=== PATIENT | male | born 1975 | race Two or more races ===

== ENCOUNTER 2024-12-25 20:26 | Emergency (ER) | payer MEDICAID, SELFPAY ==
[2024-12-25 21:20] VITALS: BP 147/74; PULSE 104; RESP 20; TEMP 37.1; O2SAT 95
--- NOTE | 2024-12-25 21:36 | EKG_ITS ---
[facility] Test Date: 2024-12-25 Pat Name: LYN ROJAS Department: Room: - Gender: Male [employer]ing [employer]: : 1975 Requested By: Shashank Hanson Order Number: [id number] Reading MD: Shashank Hanson Measurements Intervals [place] Rate: 98 P: 30 ID: 152 QRS: 42 QRSD: 90 T: 24 QT: 331 QTc: 424 Interpretive Statements SINUS RHYTHM No previous ECG available for comparison /store/S0/[id number]
--- NOTE | 2024-12-25 21:36 | XR_ITS ---
Examination: PA lateral chest 2 views Technique: Upright PA lateral chest 2 views Exam date and time: December 25, 2024 at 2150 hrs. Indications: Chest pain today Findings: Significant right middle lobe right lower lobe pneumonia Normal heart size The osseous structures are intact Impression: Significant right middle lobe right lower lobe pneumonia
--- NOTE | 2024-12-25 21:36 | PD.EDRME ---
Rapid Medical Screening Exam [facility] Arrival date/time: 12/25/24 20:26 49M with no significant PMH presents to ED with 1 week of worsening cough and R-sided CP. Chief Complaint: Abdominal Pain Vital signs: Vital Signs Temperature 98.8 F 12/25/24 21:20 Pulse Rate 104 H 12/25/24 21:20 Respiratory Rate 20 12/25/24 21:20 Blood Pressure 147/74 H 12/25/24 21:20 Pulse Oximetry (%) 95 12/25/24 21:20 Oxygen Delivery Method Room Air 12/25/24 21:20
[2024-12-25 22:10] LABS: Basophils # (Auto) 0.1 Thou/mm3 (0.0-0.2); Basophils % (Auto) 1 % (0-2.5); Eosinophils # (Auto) 0.5 Thou/mm3 (0.0-0.5); Eosinophils % (Auto) 5 % (0-10); Hematocrit 35.6 % (41.0-53.0); Hemoglobin 12.1 g/dL (13.5-16.0); Immature Granulocytes % (Auto) 0 % (0-0); Immature Granulocytes Auto 0.03 Thou/mm3 (0.00-0.00); Lymphocytes # (Auto) 2.1 Thou/mm3 (1.0-4.8); Lymphocytes % (Auto) 22 % (10-50); Mean Corpuscular Hemoglobin 29.1 pg (25.0-35.0); Mean Corpuscular Volume 86 fL (80-100); Monocytes # (Auto) 1.1 Thou/mm3 (0.0-0.8); Monocytes % (Auto) 11 % (0-12); Neutrophils % (Auto) 61 % (37-80); Nucleated Red Blood Cell % 0 /100 WBC (0); Platelet Count 239 Thou/mm3 (140-440); RDW Standard Deviation 38.2 fL (35.1-43.9); Red Blood Count 4.16 Miln/mm3 (4.50-5.90); White Blood Count 9.7 Thou/mm3 (3.8-10.6)
[2024-12-25 22:31] LABS: Alanine Aminotransferase 11 U/L (10-49); Albumin, Serum 4.6 gm/dL (3.5-5.0); Albumin/Globulin Ratio 1.4 (1.2-2.2); Alkaline Phosphatase 252 U/L (46-116); Anion Gap 8 (7-16); Aspartate Amino Transferase 17 U/L (0-34); BUN/Creatinine Ratio 13 Ratio (12-20); Bilirubin,Total 0.4 mg/dL (0.3-1.2); Blood Urea Nitrogen 8 mg/dL (9-23); Calcium 9.8 mg/dL (8.3-10.6); Calcium (Corrected) 9.8 mg/dL (8.5-10.1); Carbon Dioxide 27.8 mMol/L (20.0-31.0); Chloride 100 mMol/L (98-107); Creatinine (Component) 0.6 mg/dL (0.6-1.3); Globulin 3.2 gm/dL (2.3-3.5); Glucose 115 mg/dL (74-106); Osmolality,Calculated 271 (275-295); Potassium 3.7 mMol/L (3.4-5.1); Sodium 136 mMol/L (136-145); Total Protein 7.8 gm/dL (5.7-8.2); Troponin I < 0.002 ng/mL (0.0-0.045); eGFR > 60 See Note
[2024-12-25 22:34] LABS: Procalcitonin 0.07 ng/ml (0.0-0.49)
[2024-12-25 22:39] LABS: Lactate (Lactic Acid) 0.6 mMol/L (0.4-2.0)
[2024-12-25 23:31] VITALS: BP 121/87; PULSE 88; RESP 20; TEMP 36.7; O2SAT 95
[2024-12-26 00:14] VITALS: BP 118/81; PULSE 84; RESP 17; TEMP 36.9; O2SAT 96
--- NOTE | 2024-12-26 00:19 | EDNOTE_ITS ---
ED Abdominal Pain RME/HPI General Chief Complaint: Flu Like Symptoms Stated complaint: RIGHT UPPER ABD PAIN X 3 DAYS Arrival date/time: 12/25/24 20:26 Source: patient Mode of arrival: ambulatory Limitations: no limitations RME / HPI RME / HPI narrative: 12/25/24 20:26 49M with no significant PMH presents to ED with 1 week of worsening cough and R- sided CP. DR SINGH MAIN ED EVALUATION: 49-year-old male with no significant past medical history presenting to the Emergency Department with one week of worsening right-sided chest pain and a non-productive cough. The patient describes the chest pain as localized to the right side, with a gradual onset and progressive worsening over the past week. The non-productive c ough has been without associated hemoptysis or sputum production. He denies fever, chills, night sweats, recent upper respiratory infections, or sick contacts. Related Data Previous Rx's ?Medication ?Instructions ?Recorded ibuprofen 600 mg tablet 600 mg PO Q6H PRN pain #30 t abs 12/26/24 levofloxacin 500 mg tablet 500 mg PO QDAY #5 tabs 12/06 12/29 Allergies Allergy/AdvReac Type Severity Reaction Status Date / Time Penicillins Allergy Intermediate RASH Verified 12/25/24 20:35 Review of Systems Review of Systems Systems Reviewed: All systems reviewed, normal except as documented Past Medical History Past Medical History CARDIAC: Negative Congestive Heart Failure RESPIRATORY: Negative Chronic Obstructive Pulmonary Disease (COPD) GENITOURINARY: Negative Renal Disease ENDOCRINE: Negative Diabetes Mellitus Type 1 or Diabetes Mellitus Type 2 Social History SMOKING STATUS: Never smoker ED Exam Narrative Physical exam: GENERAL APPEARANCE: alert and oriented x 4, well-developed, well-nourished, no acute distress VITALS: All vitals were reviewed and the pulse ox is 96% on room air, which is normal according to my interpretation. HEENT: Normocephalic, atraumatic; pupils equal, round, reactive to light; EOMI; mucous membranes pink, moist; oropharynx clear NECK: Supple LUNGS: CTABL; no wheezes, no rales, no rhonchi HEART: Regular rate, regular rhythm; normal S1, S2; no murmurs ABDOMEN: non distended; normal BS; soft, no tenderness, no guarding, no rebound; no masses, no organomegaly, no hernia BACK: no CVA tenderness EXTREMITIES: atraumatic; no edema NEUROLOGIC: awake; alert and oriented x4; cranial nerves II-XII grossly intact; no focal sensory or motor deficits PSYCHIATRIC: appropriate mood and affect SKIN: warm, dry, normal color; no rashes General Limitations: Present no limitations Course Course Course Narrative: CXR is ordered for determining etiology of chest pain. Quality Measures none Orders Category Date Time Status Bedside COVID-19 Antigen Test NOW Care 12/25/24 21:36 Completed Bedside Influenza A&B Antigen Test NOW Care 12/25/24 21:36 Completed EKG (ED ONLY) *Do not use* NOW Care 12/25/24 21:36 Completed EKG (ED Only) Stat Exams 12/25/24 21:36 Ordered US abdomen limited Stat Exams 12/26/24 01:26 Taken XR chest 2V Stat Exams 12/25/24 21:36 Completed Blood Culture (Lab) Stat Lab 12/25/24 22:17 Received CBC Stat Lab 12/25/24 21:56 Completed Comprehensive Metabolic Panel Stat Lab 12/25/24 21:56 Completed Lactate (Lactic Acid) Stat Lab 12/25/24 22:25 Completed Procalcitonin Stat Lab 12/25/24 21:56 Completed Troponin I Stat Lab 12/25/24 21:56 Completed Urinalysis, C/S if Indicated Stat Lab 12/26/24 03:36 Completed HYDROcodone*/APAP 5/325 [[place] 5/325] Med 12/26/24 00:13 Discontinued 1 tab PO X1 ONE Levofloxacin [Levaquin] Med 12/26/24 00:13 Discontinued 500 mg PO X1 ONE Vital Signs Vital signs: Vital Signs Temperature 98.8 F 12/25/24 21:20 Pulse Rate 104 H 12/25/24 21:20 Respiratory Rate 20 12/25/24 21:20 Blood Pressure 147/74 H 12/25/24 21:20 Pulse Oximetry (%) 95 12/25/24 21:20 Oxygen Delivery Method Room Air 12/25/24 21:20 Abdominal Pain MDM MDM Narrative MDM Narrative:: Scribe Attestation: I, Aurea Arita am scribing for and in the presence of Dr. Singh. Provider Notation: Although this document has been carefully reviewed, there may still be some phonetic and other typographical errors. These errors are purely grammatical due to imperfections in the software program and should not be construed in any way to compromise the substance of the patient's medical care during this visit. Patient data External records reviewed:: [facility] previous records Clinical information provided by:: patient Social determinants that could affect healthcare access:: none Patient has the following chronic illnesses:: na How is presenting disease/condition affected by chronic disease/condition?: no chronic disease Evaluation data The following diagnostics were reviewed and interpreted by me:: lab results and radiology exam(s) Lab and/or radiology exams considered but not ordered:: na Interpretation Summary: I personally reviewed the radiology data and agree with the radiologist's interpretation. Examination: PA lateral chest 2 views Technique: Upright PA lateral chest 2 views Exam date and time: December 25, 2024 at 2150 hrs. Indications: Chest pain today Findings: Significant right middle lobe right lower lobe pneumonia Normal heart size The osseous structures are intact Impression: Significant right middle lobe right lower lobe pneumonia Dictated By: Zachary Garcia MD Medications / Prescriptions Medications or Prescriptions considered but not ordered:: na Medication administrations:: Medication Administration History Discontinued Medications Hydrocodone Bitart/Acetaminophen (Hydrocodone/[place] 5/325 Tablet) 1 tab PO X1 ON E Stop: 12/26/24 00:14 Last Admin: 12/26/24 00:38 Dose: 1 tab Documented By: ABENA Levofloxacin (Levofloxacin 250 Mg Tablet) 500 mg PO X1 ONE Stop: 12/26/24 00:14 Last Admin: 12/26/24 00:38 Dose: 500 mg Documented By: ABENA as above, if any Consultations Consultation(s) initiated? (list below): No Diagnosis Differential diagnosis abdominal pain: abdominal pain, acute appendicitis, constipation, gastroenteritis, pancreatitis and small bowel obstruction Most likely diagnosis given after review of the tests above:: Pneumonia Admission Indicated Admission indicated?: not indicated Admission Request Was there a request for admission?: No Disposition Plan Disposition Plan: Discharge Discharge Attestation Discharge Attestation: The patient and all family members were given an opportunity to ask questions and understood the discharge instructions. Discharge instructions specifically effects, indications for sooner follow up or return to the emergency department, and the expected course of current diagnosis. Patient condition: Stable Discharge Plan Plan Patient Disposition: HOME (Self Care) Prescriptions/Referrals Prescriptions/Med Rec: New levofloxacin 500 mg tablet 500 mg PO QDAY Qty: 5 0RF ibuprofen 600 mg tablet 600 mg PO Q6H PRN (Reason: pain) Qty: 30 0RF Referrals: Garcia Rueda MD [Primary Care Provider] - In 1 week Problem List Clinical Impression: Pneumonia Patient/Caregiver Discharge Instructions Education Materials: ED Pneumonia (Adult) Print Language: Moz[place]ican Stand Alone Forms: [employer] Award Info., Work/School Release, Patient Portal Info Letter
[2024-12-26] MEDS: LEVOFLOXACIN 250 MG TABLET 500 MG PO (00:38)
[2024-12-26] MEDS: HYDROcodone/APAP 5/325 TABLET 1 TAB PO (00:38)
--- NOTE | 2024-12-26 01:26 | XR_ITS ---
Examination: Abdomen sonogram, Limited Date and time of exam: December 26, 2024 0342 hrs. Indications: Right upper abdominal pain beginning 2 days ago Technique: Real-time aviles scale transabdominal sonographic images of the upper abdomen obtained. Findings: Normal gallbladder Normal common bile duct 0.3 cm Pancreas obscured by bowel gas Liver 14.8 cm smooth contour fatty infiltration no focal liver lesions Normal hepatopedal portal venous flow. Patent IVC Impression: Normal gallbladder Fatty liver
[2024-12-26 03:42] LABS: Collection Type, Urine Clean Catch; Squamous Epithelial Cell,Urine 0 /hpf (0-5)
[2024-12-26 04:05] LABS: Bilirubin,Urine Negative (Negative); Blood,Urine Negative (Negative); Clarity,Urine Clear (Clear/Hazy); Color,Urine Light-Blue (Lt Yel-Yel); Culture Indicated,Urine Not Indicated; Glucose, Urine Negative (Negative); Ketones,Urine Negative (Negative); Leukocyte Esterase,Urine Negative (Negative); Nitrite,Urine Negative (Negative); Protein,Urine Negative (Neg - Trace); RBC,Urine 1 /hpf (0-3); Urobilinogen,Urine Negative mg/dL (0.0-1.0); WBC,Urine 1 /hpf (0-5)
[2024-12-26 04:26] VITALS: BP 112/86; PULSE 62; RESP 18; TEMP 36.7; O2SAT 98
--- NOTE | 2024-12-26 05:02 | PRELIM_ITS ---
Ultrasound Abdomen. December 26, 2024 at 0342 hours Clinical history: Right upper quadrant pain. Technique: Grayscale and color flow images of the abdomen are provided. Hepatic and portal veins were also imaged with color flow images. Comparison: No prior study is available for comparison. Findings: There is fatty liver. There is no space occupying hepatic mass or intrahepatic biliary dilatation. No gallstones or sludge noted within the gallbladder. Gallbladder wall thickness is normal measuring 2 mm. There is no pericholecystic fluid. No sonographic Oden's sign is elicited. Pancreas is not well visualized due to overlying bowel gas. Common bile duct is normal in caliber measuring 3 mm. There is hepatopedal flow within the portal vein. There is conrado-hepatic ascites. Impression: 1. Fatty liver. Perihepatic ascites noted. 2. No gallbladder disease. Report Electronically Signed By: Reilly Avendano 12/26/2024 5:01:35 AM [EST]
== END 2024-12-26 04:27 | disposition home or self-care (01) ==
PROVIDERS: Physician Assistant; Emergency Provider Emergency Medicine; PCP Family Medicine
DX: J18.9 Pneumonia, unspecified organism (principal)
CPT/HCPCS: 36415; 71046; 76705; 80053; 81001; 83605; 84145; 84484; 85025; 87040; 87400; 87811; 93005; 99284; A9270

== ENCOUNTER 2025-02-02 15:56 | Inpatient (IN) | payer MEDICAID, SELFPAY ==
[2025-02-02 16:13] VITALS: BP 136/93; PULSE 97; RESP 18; TEMP 36.8; O2SAT 99; BMI 23.0
--- NOTE | 2025-02-02 16:38 | XR_ITS ---
Examination: PA lateral chest 2 views TECHNIQUE: Upright PA lateral chest 2 views Exam date and time: February 02, 2025 1657 hours Comparison December 25, 2024 INDICATIONS: Coughing and fever today. FINDINGS: Pneumonia in the right midlung and left midlung Mild prominence left ventricle Large right pleural effusion The osseous structures are intact IMPRESSION: Bilateral pneumonia with large right pleural effusion
--- NOTE | 2025-02-02 16:39 | PD.EDRME ---
Rapid Medical Screening Exam [facility] Arrival date/time: 02/02/25 15:56 49-year-old male with no known medical history presents to the emergency room with a chief complaint of pain with inspiration, shortness of breath x 2 days I have greeted and performed a focused initial assessment of this patient. A comprehensive ED assessment and evaluation of the patient, analysis of all test results, and completion of the medical decision making process will be conducted by additional ED providers. Chief Complaint: Back Pain/Injury Time Seen by Provider: 02/02/25 16:03 Vital signs: Vital Signs Temperature 98.3 F 02/02/25 16:13 Pulse Rate 97 02/02/25 16:13 Respiratory Rate 18 02/02/25 16:13 Blood Pressure 136/93 H 02/02/25 16:13 Pulse Oximetry (%) 99 02/02/25 16:13 Oxygen Delivery Method Room Air 02/02/25 16:13 Vital signs reviewed by provider: Yes
[2025-02-02] MEDS: KETOROLAC INJ 60 MG/2 ML VIAL 30 MG IM (16:59)
[2025-02-02 18:05] VITALS: BP 157/100; PULSE 83; RESP 24; TEMP 36.8; O2SAT 98
--- NOTE | 2025-02-02 18:05 | EKG_ITS ---
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
--- NOTE | 2025-02-02 18:09 | XR_ITS ---
Examination: CT chest with intravenous contrast 2-D sagittal and coronal reconstructions Exam date and time: February 02, 2025 1915 hours INDICATIONS: Onset of SOB today, chest film today large right pleural effusion CTDI:vol (mGy) 11 DLP: (mGycm) 386 Technique: Multiple axial sections of the thorax have been obtained. Sections have been obtained, 3 mm slice thickness. Mediastinal and lung density settings have been obtained. Intravenous contrast administered, 60 cc Isovue 370. 2-D sagittal, coronal images obtained. Low dose protocols were performed. One or more of the following dose reduction techniques were used; automated exposure control, adjustment of the mA and/or KV according to patient size, use of iterative reconstruction technique. Findings: Large right pleural effusion Pneumonia in the visualized right lung Small likely reactive tracheobronchial mediastinal lymph nodes Significant right lung atelectasis 4 mm pulmonary nodule right upper lobe image 62, 5 mm pulmonary nodule left lower lobe image 194 No thoracic aortic aneurysmal dilatation No pulmonary artery filling defects No visualized liver and splenic lesions Contracted gallbladder No pancreatic or adrenal mass Widespread osteoblastic metastatic disease IMPRESSION: Large right pleural effusion Right lung pneumonia with significant right lung atelectasis Noncalcified likely metastatic pulmonary nodules Widespread osteoblastic metastatic disease Consider CT scan abdomen and pelvis postcontrast follow-up for staging
--- NOTE | 2025-02-02 18:10 | PD.EDADULT ---
ED General RME/HPI General Chief complaint: Back Pain/Injury Stated complaint: R) BACK PAIN Time Seen by Provider: 02/02/25 16:03 Arrival date/time: 02/02/25 15:56 CC: Shortness of breath HPI patient states started today. Patient denies any slow worsening of shortness of breath over the past several days. 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 Patient's medical records show that he had pneumonia in December of this year. Which had resolved. Patient denies fever chills difficulty breathing headache nausea vomiting diarrhea or chest pain. No other complaints. RME / HPI RME / HPI narrative: 02/02/25 15:56 49-year-old male with no known medical history presents to the emergency room with a chief complaint of pain with inspiration, shortness of breath x 2 days I have greeted and performed a focused initial assessment of this patient. A comprehensive ED assessment and evaluation of the patient, analysis of all test results, and completion of the medical decision making process will be conducted by additional ED providers. Related Data Previous Rx's ?Medication ?Instructions ?Recorded ibuprofen 600 mg tablet 600 mg PO Q6H PRN pain #30 tabs 12/26/24 levofloxacin 500 mg tablet 500 mg PO QDAY #5 tabs 12/26/24 Allergies Allergy/AdvReac Type Severity Reaction Status Date / Time Penicillins Allergy Intermediate RASH Verified 02/02/25 16:04 Past Medical History Past Medical History CARDIAC: Negative Congestive Heart Failure RESPIRATORY: Negative Chronic Obstructive Pulmonary Disease (COPD) GENITOURINARY: Negative Renal Disease ENDOCRINE: Negative Diabetes Mellitus Type 1 or Diabetes Mellitus Type 2 Social History SMOKING STATUS: Never smoker ED Exam Narrative Physical exam: [General: Not in any acute distress Head normocephalic HEENT: Within acceptable limits Neck is supple nontender Chest equal chest rise nontender to palpation Respiratory: Absent breath sounds right side. Left side clear to auscultation in the upper lobes CV: Rate rhythm is regular no murmurs rubs or clicks Abdomen is soft nontender, positive bowel sounds all 4 quadrants Back: No CVA tenderness no spinous process tenderness from cervical spine thoracic and lumbar spine Skin: Intact no petechiae rash induration ulceration or crepitus Extremities: Moving all extremity against resistance cap refill less than 2 seconds neurosensory intact Neuro: Awake alert oriented x3 Glascow coma 15 no focal deficits] Course Quality Measures none Orders Category Date Time Status Patient Condition Routine Admission 02/02/25 20:[address] in Observation Status Routine Admission 02/02/25 20:38 Active Activity as Tolerated Routine Care 02/02/25 20:37 Ordered Bedside COVID-19 Antigen Test NOW Care 02/02/25 16:38 Active Bedside Influenza A&B Antigen Test NOW Care 02/02/25 16:[address] Screening NOW Care 02/02/25 18:[address] Screening NOW Care 02/02/25 20:33 Active EKG (ED ONLY) *Do not use* NOW Care 02/02/25 18:05 Completed Notify provider NEEDED Care 02/02/25 20:37 Active Saline [Insert IV] NOW Care 02/02/25 17:57 Active Sequential Compression Device QSHIFT Care 02/02/25 20:[address] abdomen pelvis w con Stat Exams 02/02/25 20:[address] chest w con Stat Exams 02/02/25 18:[address] guided thoracentesis Stat Exams 02/02/25 20:38 Ordered EKG (ED Only) Stat Exams 02/02/25 18:05 Draft XR chest 2V Stat Exams 02/02/25 16:38 Completed CBC AM DRAW Lab 02/03/25 05:00 Ordered CBC AM DRAW Lab 02/04/25 05:00 Ordered CBC AM DRAW Lab 02/05/25 05:00 Ordered CBC Stat Lab 02/02/25 18:21 Completed CMP [Comprehensive Metabolic Panel] Stat Lab 02/02/25 18:21 Completed Comprehensive Metabolic Panel AM DRAW Lab 02/03/25 05:00 Ordered Comprehensive Metabolic Panel AM DRAW Lab 02/04/25 05:00 Ordered Comprehensive Metabolic Panel AM DRAW Lab 02/05/25 05:00 Ordered Magnesium AM DRAW Lab 02/03/25 05:00 Ordered PT [Prothrombin Time with INR] Stat Lab 02/02/25 18:21 Completed PTT [Partial Thromboplastin Time] Stat Lab 02/02/25 18:21 Completed Partial Thromboplastin Time AM DRAW Lab 02/03/25 05:00 Ordered Phosphorous AM DRAW Lab 02/03/25 05:00 Ordered Prothrombin Time with INR AM DRAW Lab 02/03/25 05:00 Ordered Acetaminophen Tab [Tylenol Tab] Med 02/02/25 20:38 Active 650 mg PO Q6H PRN Albuterol/Ipratr Rt Stacia [Duoneb Rt Stacia] Med 02/02/25 20:38 Active 3 ml INH Q2HR PRN Ketorolac Inj [Toradol Inj] Med 02/02/25 16:38 Discontinued 30 mg IM X1 ONE LORazepam [Ativan] Med 02/02/25 20:44 Ordered 0.5 mg PO Q4HR PRN LORazepam [Ativan] Med 02/02/25 20:44 Ordered 1 mg PO Q4HR PRN LORazepam [Ativan] Med 02/02/25 20:44 Ordered 2 mg PO Q4HR PRN Ondansetron Inj [Zofran Inj] Med 02/02/25 20:38 Active 4 mg IV Q6H PRN oxyCODONE/APAP 5/325 [Percocet 5/325] Med 02/02/25 20:38 Active 1 tab PO Q6H PRN Code Status Routine Oth 02/02/25 20:36 Ordered Oxygen Delivery PRN RT 02/02/25 20:36 Active Vital Signs Vital signs: Vital Signs Temperature 98.3 F 02/02/25 16:13 Pulse Rate 97 02/02/25 16:13 Respiratory Rate 18 02/02/25 16:13 Blood Pressure 136/93 H 02/02/25 16:13 Pulse Oximetry (%) 99 02/02/25 16:13 Oxygen Delivery Method Room Air 02/02/25 16:13 [facility] Patient data External records reviewed:: [facility] previous records Clinical information provided by:: patient Social determinants that could affect healthcare access:: none Patient has the following chronic illnesses:: None How is presenting disease/condition affected by chronic disease/condition?: uneffected by Evaluation data The following diagnostics were reviewed and interpreted by me:: lab results, radiology exam(s) and EKG tracing(s) Lab and/or radiology exams considered but not ordered:: EKG performed at 1811 shows ventricular rate of 70 AK interval 116 QRS of 90 QTc 390 is normal sinus rhythm. CBC shows no acute leukocytosis anemia thrombocytopenia Coags within acceptable limits CMP shows the patient has a BUN of 8 no other acute abnormalities require immediate intervention alk phos is at 376. Chest x-ray showed large pleural effusion CT of the chest with IV contrast shows the patient has multiple metastatic osseous lesions mediastinal lesions, large pleural effusion pneumonia. Interpretation Summary: Patient's case discussed with Dr. Márquez, resident for Dr. Sergio Presley who agrees to accept the patient for admission Medications Medications considered but not ordered:: None Medication administrations:: Medication Administration History Acetaminophen (Acetaminophen 325 Mg Tablet) 650 mg PO Q6H PRN PRN Reason: Fever >100.3 or pain 1-3 Stop: 03/04/25 20:37 Albuterol/Ipratropium (Albuterol/Ipratropium (Duoneb) Rt Stacia 3 Ml Nebu) 3 ml INH Q2HR PRN PRN Reason: SHORTNESS OF BREATH OR WHEEZE Stop: 03/04/25 20:37 Lorazepam (Lorazepam 0.5 Mg Tablet) 0.5 mg PO Q4HR PRN PRN Reason: CIWA Score 2-6 Stop: 02/07/25 20:43 Lorazepam (Lorazepam 0.5 Mg Tablet) 1 mg PO Q4HR PRN PRN Reason: CIWA SCORE 7-11 Stop: 02/07/25 20:43 Lorazepam (Lorazepam 0.5 Mg Tablet) 2 mg PO Q4HR PRN PRN Reason: CIWA SCORE 12-15 Stop: 02/07/25 20:43 Ondansetron HCl (Ondansetron Inj 2 Mg/Ml Inj 2 Ml) 4 mg IV Q6H PRN; Protocol PRN Reason: NAUSEA OR VOMITING Stop: 03/04/25 20:37 Oxycodone/Acetaminophen (Oxycodone/Apap 5/325 Tablet) 1 tab PO Q6H PRN PRN Reason: Pain Scale 4-10 (Moderate Stop: 02/07/25 20:37 Discontinued Medications Ketorolac Tromethamine (Ketorolac Inj 60 Mg/2 Ml Vial) 30 mg IM X1 ONE Stop: 02/02/25 16:39 Last Admin: 02/02/25 16:59 Dose: 30 mg Documented By: None Consultations Consultation(s) initiated? (list below): No Diagnosis Differential Diagnosis ED Complaint MDM: Pneumonia metastatic disease pleural effusion Most likely diagnosis given after review of the tests above:: Pneumonia metastatic disease pleural effusion Admission Indicated Admission indicated?: indicated Explain why admission is indicated or not indicated:: Further medical management Admission Request Was there a request for admission?: No Disposition Plan Disposition Plan: Discharge Discharge Attestation Discharge Attestation: The patient and all family members were given an opportunity to ask questions and understood the discharge instructions. Discharge instructions specifically effects, indications for sooner follow up or return to the emergency department, and the expected course of current diagnosis. Patient condition: Stable Medical Decision Making Differential Diagnosis Differential Diagnosis: Pneumonia metastatic disease pleural effusion Lab Data 02/02/25 18:21 02/02/25 18:21 Labs: Lab Results 02/02/25 Range/Units 18:21 WBC 8.8 (3.8-10.6) Thou/mm3 RBC 4.80 (4.50-5.90) Miln/mm3 Hgb 13.6 (13.5-16.0) g/dL Hct 40.8 L (41.0-53.0) % MCV 85 (80-100) fL MCH 28.3 (25.0-35.0) pg MCHC 33.3 (31.0-37.0) g/dl RDW Std Deviation 39.6 (35.1-43.9) fL Plt Count 334 D (140-440) Thou/mm3 Neut % (Auto) 66 (37-80) % Lymph % (Auto) 23 (10-50) % Barbour % (Auto) 8 (0-12) % Eos % (Auto) 2 (0-10) % Baso % (Auto) 1 (0-2.5) % Neut # (Auto) 5.8 (1.8-7.7) Thou/mm3 Lymph # (Auto) 2.0 (1.0-4.8) Thou/mm3 Barbour # (Auto) 0.7 (0.0-0.8) Thou/mm3 Eos # (Auto) 0.2 (0.0-0.5) Thou/mm3 Baso # (Auto) 0.1 (0.0-0.2) Thou/mm3 Immature Gran # (Auto) 0.04 H (0.00-0.00) Thou/mm3 Absolute Nucleated RBC 0.00 (0.00-0.00) Thou/mm3 Immature Gran % 1 H (0-0) % Nucleated RBC % 0 (0) /100 WBC PT 11.6 (9.0-12.2) Seconds INR 1.1 (0.9-1.3) APTT 26.5 (22.0-36.0) Seconds Sodium 137 (136-145) mMol/L Potassium 4.6 (3.4-5.1) mMol/L Chloride 102 (98-107) mMol/L Carbon Dioxide 27.7 (20.0-31.0) mMol/L Anion Gap 7 (7-16) BUN 8 L (9-23) mg/dL Creatinine 0.7 (0.6-1.3) mg/dL Estim Creat Clear Calc 126.3 (>60) mL/min eGFR > 60 (60 - ) See Note BUN/Creatinine Ratio 11 L (12-20) Ratio Glucose 116 H (74-106) mg/dL Calculated Osmolality 273 L (275-295) Calcium 9.9 (8.3-10.6) mg/dL Corrected Calcium 9.9 (8.5-10.1) mg/dL Total Bilirubin 0.4 (0.3-1.2) mg/dL AST 27 (0-34) U/L ALT 17 (10-49) U/L Alkaline Phosphatase 376 H (46-116) U/L Total Protein 7.8 (5.7-8.2) gm/dL Albumin 4.5 (3.5-5.0) gm/dL Globulin 3.3 (2.3-3.5) gm/dL Albumin/Globulin Ratio 1.4 (1.2-2.2) Discharge Plan Plan Patient Disposition: Other Care w/in Hosp ([facility]) Patient condition on transfer: Stable Prescriptions/Referrals Prescriptions/Med Rec: No Action levofloxacin 500 mg tablet 500 mg PO QDAY Qty: 5 0RF ibuprofen 600 mg tablet 600 mg PO Q6H PRN (Reason: pain) Qty: 30 0RF Referrals: No Primary/Family,Physician [Primary Care Provider] - In 1 week Problem List Clinical Impression: Shortness of breath, Pleural effusion, Pneumonia, Osteolytic lesion Patient/Caregiver Discharge Instructions Print Language: Maori Stand Alone Forms: Jerica Award Info., Patient Portal Info Letter 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
[2025-02-02 18:36] LABS: Basophils # (Auto) 0.1 Thou/mm3 (0.0-0.2); Basophils % (Auto) 1 % (0-2.5); Eosinophils # (Auto) 0.2 Thou/mm3 (0.0-0.5); Eosinophils % (Auto) 2 % (0-10); Hematocrit 40.8 % (41.0-53.0); Hemoglobin 13.6 g/dL (13.5-16.0); Immature Granulocytes % (Auto) 1 % (0-0); Immature Granulocytes Auto 0.04 Thou/mm3 (0.00-0.00); Lymphocytes % (Auto) 23 % (10-50); Mean Corpuscular HGB Conc 33.3 g/dl (31.0-37.0); Mean Corpuscular Hemoglobin 28.3 pg (25.0-35.0); Mean Corpuscular Volume 85 fL (80-100); Monocytes # (Auto) 0.7 Thou/mm3 (0.0-0.8); Monocytes % (Auto) 8 % (0-12); Neutrophils # (Auto) 5.8 Thou/mm3 (1.8-7.7); Neutrophils % (Auto) 66 % (37-80); Nucleated Red Blood Cell % 0 /100 WBC (0); Platelet Count 334 Thou/mm3 (140-440); RDW Standard Deviation 39.6 fL (35.1-43.9); White Blood Count 8.8 Thou/mm3 (3.8-10.6)
[2025-02-02 18:48] LABS: Alanine Aminotransferase 17 U/L (10-49); Albumin, Serum 4.5 gm/dL (3.5-5.0); Albumin/Globulin Ratio 1.4 (1.2-2.2); Alkaline Phosphatase 376 U/L (46-116); Anion Gap 7 (7-16); Aspartate Amino Transferase 27 U/L (0-34); BUN/Creatinine Ratio 11 Ratio (12-20); Bilirubin,Total 0.4 mg/dL (0.3-1.2); Blood Urea Nitrogen 8 mg/dL (9-23); Calcium 9.9 mg/dL (8.3-10.6); Calcium (Corrected) 9.9 mg/dL (8.5-10.1); Carbon Dioxide 27.7 mMol/L (20.0-31.0); Chloride 102 mMol/L (98-107); Creatinine (Component) 0.7 mg/dL (0.6-1.3); Estimated Creatinine Clearance 126.3 mL/min (>60); Globulin 3.3 gm/dL (2.3-3.5); Glucose 116 mg/dL (74-106); INR 1.1 (0.9-1.3); Osmolality,Calculated 273 (275-295); Partial Thromboplastin Time 26.5 Seconds (22.0-36.0); Potassium 4.6 mMol/L (3.4-5.1); Prothrombin Time 11.6 Seconds (9.0-12.2); Sodium 137 mMol/L (136-145); Total Protein 7.8 gm/dL (5.7-8.2); eGFR > 60 See Note
--- NOTE | 2025-02-02 20:33 | XR_ITS ---
Examination: CT abdomen with intravenous contrast CT pelvis with intravenous contrast 2-D coronal reconstructions 2-D sagittal reconstructions Date and time of exam:February 02, 2025 2046 hours INDICATIONS: Shortness of breath today, large right pleural effusion on CT chest study with widespread osteoblastic metastatic disease on CT chest February 02, 2025 1915 hours. CTDI: vol (mGy) 6.91 DLP: (mGycm) 399 Technique: Multiple axial sections of the abdomen and pelvis have been obtained. 64 slice high-resolution scanner used. 3 mm axial sections have been obtained, post intravenous injection of 60 cc Isovue 370 2-D sagittal, coronal reconstructions obtained. Low dose protocols were performed. One or more of the following dose reduction techniques were used; automated exposure control, adjustment of the mA and/or KV according to patient size, use of iterative reconstruction technique. Findings: No focal liver or splenic lesion No pancreatic or adrenal mass Abdominal aorta is not enlarged No hydronephrosis Normal appendix No abdominal lymphadenopathy, no pelvic lymphadenopathy Seminal vesicles are not enlarged Transverse prostate dimension 4.1 cm Widespread osteoblastic metastatic disease, involving all lumbar vertebral bodies, bones of the pelvis, hips IMPRESSION: Widespread osteoblastic metastatic disease Recommend transrectal prostate sonography follow-up
--- NOTE | 2025-02-02 20:53 | ESHP_ITS ---
Documentation for date of: 02/02/25 HPI History of Present Illness Chief complaint: shortness of breath, chest pain History of present illness: The patient is a 49-year-old male with no previous medical history who came to the ED due to shortness of breath that started a day ago, denies fever, chills, cough, nausea, vomiting, weight loss. He also denies dysuria, bloody, dark stools. 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 In December 2024 he came to the ED with cough and right-sided chest pain, was found to have right-sided pneumonia, was discharged on oral levofloxacin. In the ED his blood pressure 136/93, heart rate 97, he is afebrile, saturating well on room air. Labs showed leukocytosis of 8.8, hemoglobin 13.6, platelets 334, INR 1.1, sodium 137, potassium 4.6, creatinine 0.7, glucose 116, alkaline phosphatase 376. Chest x- ray showed bilateral pneumonia with large right pleural effusion, CT chest with contrast reviewed in addition to large right pleural effusion and right lung pneumonia noncalcified most likely metastatic pulmonary nodules, widespread osteoblastic metastatic disease. EKG showed sinus rhythm. CT abdomen chest with contrast was ordered. Explained to the patient the findings on the CT chest, possible the differential diagnosis of cancer and necessary workup that's required, patient showed understanding. Patient will be admitted for right pneumonia and right pleural effusion, most likely paracancerous work up and treatment including thoracocentesis. Social history: denies history of smoking, reports drinking 5-6 beers every day, last drink was yesterday (1 beer). 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 Medications: denies PMH: denies Review of Systems Review of Systems Narrative Review of Systems: General: Denies weight loss, fever and chills. HEENT: Denies changes in vision and hearing. Resp: Denies SOB, cough and wheezing. Reports right sided mild chest pain. CVS: Denies palpitations. Reports right sided mild chest pain. GI: Denies abdominal pain, nausea, vomiting and diarrhea. : Denies dysuria and urinary frequency. MSK: Denies myalgia and joint pain. Denies rash and pruritus. Neuro: Denies headache and syncope. Psych: Denies recent changes in mood. Denies anxiety and depression. Past Medical History Past Medical History CARDIAC: Negative Congestive Heart Failure RESPIRATORY: Negative Chronic Obstructive Pulmonary Disease (COPD) GENITOURINARY: Negative Renal Disease ENDOCRINE: Negative Diabetes Mellitus Type 1 or Diabetes Mellitus Type 2 Social History SMOKING STATUS: Never smoker Exam Vital Signs Temp Pulse Resp BP Pulse Ox O2 Del Method 98.3 F 83 24 H 157/100 H 98 Room Air 02/02/25 18:05 02/02/25 18:05 02/02/25 18:05 02/02/25 18:05 02/02/25 18:05 02/02/25 18:05 Narrative Exam Physical Exam General: Awake and in no acute distress. Conversational and non-toxic appearing. HEENT: Normocephalic, atraumatic, mucous membranes moist. Heart: Regular rate and rhythm, no murmurs. Lungs: Decreased breathing sounds on in the lower part of right lung. Abdomen: Soft, nondistended, nontender, positive bowel sounds. ?No guarding or rebound tenderness. Neurologic: Alert and oriented x3, no gross neurological deficit, and patient able to move all 4 extremities. Extremities: No edema. Skin: No rash or ecchymoses. Results: Labs 02/03/25 05:23 02/03/25 05:23 Labs: Short CBC 02/02/25 Range/Units 18:21 WBC 8.8 (3.8-10.6) Thou/mm3 Hgb 13.6 (13.5-16.0) g/dL Hct 40.8 L (41.0-53.0) % Plt Count 334 D (140-440) Thou/mm3 BMP 02/02/25 18:21 Sodium 137 Potassium 4.6 Chloride 102 Carbon Dioxide 27.7 BUN 8 L Creatinine 0.7 Glucose 116 H Calcium 9.9 Liver Function 02/02/25 Range/Units 18:21 Total Bilirubin 0.4 (0.3-1.2) mg/dL AST 27 (0-34) U/L ALT 17 (10-49) U/L Alkaline Phosphatase 376 H (46-116) U/L Albumin 4.5 (3.5-5.0) gm/dL Quality Measures Quality Measures VTE prophylaxis Medications Home Medications and Allergies Allergies Allergy/AdvReac Type Severity Reaction Status Date / Time Penicillins Allergy Intermediate RASH Verified 02/02/25 16:04 Visit Medications Acetaminophen (Acetaminophen 325 Mg Tablet) 650 mg PO Q6H PRN PRN Reason: Fever >100.3 or pain 1-3 Stop: 03/04/25 20:37 Albuterol/Ipratropium (Albuterol/Ipratropium (Duoneb) Rt Stacia 3 Ml Nebu) 3 ml INH Q2HR PRN PRN Reason: SHORTNESS OF BREATH OR WHEEZE Stop: 03/04/25 20:37 Lorazepam (Lorazepam 0.5 Mg Tablet) 0.5 mg PO Q4HR PRN PRN Reason: CIWA Score 2-6 Stop: 02/07/25 20:43 Lorazepam (Lorazepam 0.5 Mg Tablet) 1 mg PO Q4HR PRN PRN Reason: CIWA SCORE 7-11 Stop: 02/07/25 20:43 Lorazepam (Lorazepam 0.5 Mg Tablet) 2 mg PO Q4HR PRN PRN Reason: CIWA SCORE 12-15 Stop: 02/07/25 20:43 Ondansetron HCl (Ondansetron Inj 2 Mg/Ml Inj 2 Ml) 4 mg IV Q6H PRN; Protocol PRN Reason: NAUSEA OR VOMITING Stop: 03/04/25 20:37 Oxycodone/Acetaminophen (Oxycodone/Apap 5/325 Tablet) 1 tab PO Q6H PRN PRN Reason: Pain Scale 4-10 (Moderate Stop: 02/07/25 20:37 Discontinued Medications Ketorolac Tromethamine (Ketorolac Inj 60 Mg/2 Ml Vial) 30 mg IM X1 ONE Stop: 02/02/25 16:39 Last Admin: 02/02/25 16:59 Dose: 30 mg Assessment & Plan Plan The patient is a 49-year-old male with no previous medical history who came to the ED due to shortness of breath that started a day ago was found to have right sided pneumonia and pleural effusion, osteoblastic lesions and was admitted for further work up and management. #Right sided large pleural effusion #Metastatic cancer Patient reports mild chest pain. Patient has a history of right sided pneumonia in December 2024. Chest x-ray showed bilateral pneumonia with large right pleural effusion, CT chest with contrast reviewed in addition to large right pleural effusion and right lung pneumonia noncalcified most likely metastatic pulmonary nodules, widespread osteoblastic metastatic disease. Patient denies unexpected weight loss, denies smoking, dysuria, is afebrile, saturates well on room air, denies cough. Plan: - will hold antibiotics for now since the nature of pleural effusion and pneumonia most like likely malignant - CT abd/chest with contrast showed multiple osteolytic lesions in bodies of - pain control as needed - IR guided thoracocentesis - Day team to fill up cytology form - Pleural fluid cytology, amylase, LDH, glucose ordered - Serum LDH #Osteoblastic bone lesions Patient reports mild chest/back pain. Plan: - pain control as needed #History of alcohol use At the momen of examination CIWA score is 0. Plan: - CIWA protocol Health maintenance: FEN: regular DVT prophylaxis: SCDs GI prophylaxis: none Dispo: med surg observation CODE STATUS: Full code Plan of care discussed with attending Dr. Aburto, PGY-[address] Márquez. Sherry Barnhart MD, PGY 1. Attending Provider Attestation/Addendum I attest that I was physically present for the evaluation, physical examination, lab and imaging review of the patient with the residents. I discussed the case with the residents and agree with the findings and plans of care as documented above. Patient is a 49 years old male without known past medical history who presented to the ED with complaint of shortness of breath and back pain that started yesterday. 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 Patient had pneumonia last month for which he received a course of antibiotics. After the antibiotics, he felt better but started having back pain and shortness of breath since yesterday. In the ED his vitals were within normal limits. Lab results were also nonconcerning except for alkaline phosphatase of 376. Chest x-ray was obtained which showed bibasilar pneumonia with large right pleural effusion. CT chest was obtained, which showed large right pleural effusion and right lung pneumonia along with most likely metastatic pulmonary nodules, widespread osteoblastic metastatic disease. We will admit the patient on observation, we will obtain CT abdomen/pelvis to further evaluate for possible source of tumor. We will also obtain IR guided thoracentesis tomorrow. Analgesics as needed, pleural fluid studies, serum LDH, PSA level are ordered. Patient also has history of alcohol abuse, drinks 5-6 beers every day. Currently does not have any symptoms of withdrawal, we will start him on CIWA protocol and monitor closely for symptoms of withdrawal. Patient and his family at bedside explained in detail about CT scan finding, need of further evaluation, family verbalized understanding and are in agreement with treatment plan. Travis Aburto MD
[2025-02-02 21:06] VITALS: BP 161/99; PULSE 72; PULSE 73; RESP 18; O2SAT 95
[2025-02-02] MEDS: oxyCODONE/APAP 5/325 TABLET 1 TAB PO (21:10)
[2025-02-02 21:53] VITALS: PULSE 72; RESP 18; RESP 92; O2SAT 92
[2025-02-02 22:40] VITALS: BMI 25.5
[2025-02-03] VITALS (9 sets, daily range): BP systolic 99–129; BP diastolic 69–93; PULSE 70–86; RESP 16–95; TEMP 36.1–36.7; O2SAT 92–95
--- NOTE | 2025-02-03 | XR_ITS ---
Examination: AP chest single view TECHNIQUE: AP portable semiupright chest single view Exam date and time: February 03, 2025 1324 hours Comparison February 02, 2025 INDICATIONS: Post right thoracentesis FINDINGS: Marked decrease in right pleural fluid No right or left pneumothorax Normal heart size IMPRESSION: No pneumothorax post right thoracentesis
--- NOTE | 2025-02-03 05:42 | PC.NURSE ---
okay to give PO pain meds per Dr. Márquez.
[2025-02-03] MEDS: oxyCODONE/APAP 5/325 TABLET 1 TAB PO ×2 (05:46→16:35)
[2025-02-03 06:01] LABS: Basophils # (Auto) 0.1 Thou/mm3 (0.0-0.2); Basophils % (Auto) 1 % (0-2.5); Eosinophils # (Auto) 0.3 Thou/mm3 (0.0-0.5); Eosinophils % (Auto) 5 % (0-10); Hematocrit 38.2 % (41.0-53.0); Hemoglobin 12.8 g/dL (13.5-16.0); Immature Granulocytes % (Auto) 0 % (0-0); Immature Granulocytes Auto 0.03 Thou/mm3 (0.00-0.00); Lymphocytes # (Auto) 1.5 Thou/mm3 (1.0-4.8); Lymphocytes % (Auto) 22 % (10-50); Mean Corpuscular HGB Conc 33.5 g/dl (31.0-37.0); Mean Corpuscular Hemoglobin 28.4 pg (25.0-35.0); Mean Corpuscular Volume 85 fL (80-100); Monocytes # (Auto) 0.7 Thou/mm3 (0.0-0.8); Monocytes % (Auto) 10 % (0-12); Neutrophils # (Auto) 4.3 Thou/mm3 (1.8-7.7); Neutrophils % (Auto) 63 % (37-80); Nucleated Red Blood Cell % 0 /100 WBC (0); Platelet Count 287 Thou/mm3 (140-440); RDW Standard Deviation 40.1 fL (35.1-43.9); Red Blood Count 4.51 Miln/mm3 (4.50-5.90); White Blood Count 6.8 Thou/mm3 (3.8-10.6)
[2025-02-03 06:09] LABS: INR 1.1 (0.9-1.3); Partial Thromboplastin Time 26.8 Seconds (22.0-36.0); Prothrombin Time 11.7 Seconds (9.0-12.2)
[2025-02-03 07:26] LABS: Prostate Specific Antigen 0.54 ng/mL (0-4.00)
[2025-02-03 07:47] LABS: Alanine Aminotransferase 15 U/L (10-49); Albumin/Globulin Ratio 1.4 (1.2-2.2); Alkaline Phosphatase 339 U/L (46-116); Anion Gap 8 (7-16); Aspartate Amino Transferase 21 U/L (0-34); BUN/Creatinine Ratio 10 Ratio (12-20); Bilirubin,Total 0.5 mg/dL (0.3-1.2); Blood Urea Nitrogen 7 mg/dL (9-23); Calcium 9.4 mg/dL (8.3-10.6); Calcium (Corrected) 9.4 mg/dL (8.5-10.1); Carbon Dioxide 28.2 mMol/L (20.0-31.0); Chloride 104 mMol/L (98-107); Creatinine (Component) 0.7 mg/dL (0.6-1.3); Estimated Creatinine Clearance 113.9 mL/min (>60); Globulin 2.8 gm/dL (2.3-3.5); Glucose 101 mg/dL (74-106); LDH (Lactate Dehydrogenase) 162 U/L (120-246); Magnesium 1.9 mg/dL (1.6-2.6); Osmolality,Calculated 277 (275-295); Phosphorous 5.1 mg/dL (2.4-5.1); Potassium 3.8 mMol/L (3.4-5.1); Sodium 140 mMol/L (136-145); Total Protein 6.8 gm/dL (5.7-8.2); eGFR > 60 See Note
[2025-02-03] MEDS: HYDROmorphone INJ 2 MG/ML VIAL 1 MG IVP (07:54)
--- NOTE | 2025-02-03 09:36 | XR_ITS ---
Exam examination: Ultrasound-guided right thoracentesis Ultrasound right hemithorax Ultrasound left hemithorax Exam date and time: February 03, 2025 11:20 AM INDICATIONS: Difficulty breathing this week large right pleural effusion on chest x-ray today TECHNIQUE AND FINDINGS: Sonographic images right and left hemithorax demonstrates large right pleural effusion Informed consent provided. Timeout performed. Skin prepped over the right hemithorax and sterile drape applied hand hygiene ultrasound sterile technique 1% lidocaine administered for local anesthesia Utilizing ultrasonographic guidance 5 Nepali catheter placed in the right pleural space 2850 cc pleural fluid removed IMPRESSION: Successful ultrasound-guided right thoracentesis 2850 cc pleural fluid removed Estimated blood loss 0 cc
--- NOTE | 2025-02-03 12:33 | PC.SS ---
SS met with patient and regarding his d/c plan.? Pt is alert/oriented.? Pt was admitted for R Sided PNA.? Pt confirmed demographic and contact information is correct on facesheet.? Pt resides with .? Pt ambulates independently without assistance or DME.? Pt is ok with all ADLs.? 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 Patient?s pharmacy of choice is [facility] [address] Pt named his , Jailene Méndez medical decision maker if he is unable.? Patient?s choice is to return home upon d/c.? Pt does not have an advance directive, SS offered, and pt was receptive.? Pt states he is not diabetic and is not on dialysis.? Pt states he followed up PCP 2-3 weeks ago. D/C plan:? Return home Next of Kin:? Jailene Méndez, , phone# [phone] PCP:? Dr. Kenneth Baker from [facility] in [place] Address:? Correct on facesheet
--- NOTE | 2025-02-03 13:46 | ESPR_ITS ---
<Statement entered by Pedro Valerio MD - 02/10/25 09:24> I reviewed above note and agree with findings and plans. I have also personally examined the patient with medicine team and went over assessment and plan with medical team including technology intern and resident physician. <Statement entered by Mk Hernandez MD - 02/04/25 15:24> I discussed with and supervised the technology intern physician involved in the care of this patient. Patient assessment and plan was discussed with entire medicine team, including my attending. I agree with the assessment and plan as documented by technology intern doctor. Patient care was discussed with my attending physician Dr. Teodoro Hernandez, PGY-2 Documentation for date of: 02/03/25 Subjective Subjective Interval history: Patient seen and examined at bedside. Labs and vitals reviewed. Patient scheduled for ultrasound-guided thoracentesis today. Will send pleural fluid for cytology and fluid analysis. Will consult oncology to establish care as patient has high suspicion of possible underlying malignancy. Exam Vital Signs Temp Pulse Resp BP Pulse Ox O2 Del Method 96.9 F 83 17 124/74 93 L Room Air 02/03/25 12:00 02/03/25 12:00 02/03/25 12:00 02/03/25 12:00 02/03/25 12:00 02/03/25 12:00 Narrative Exam Physical Exam General: Awake and in no acute distress. Conversational and non-toxic appearing. HEENT: Normocephalic, atraumatic, mucous membranes moist. Heart: Regular rate and rhythm, no murmurs. Lungs: Decreased breathing sounds on in the lower part of right lung. Abdomen: Soft, nondistended, nontender, positive bowel sounds. ?No guarding or rebound tenderness. Neurologic: Alert and oriented x3, no gross neurological deficit, and patient able to move all 4 extremities. Extremities: No edema. Skin: No rash or ecchymoses. Objective Labs 02/03/25 05:23 02/03/25 05:23 Labs: Laboratory Results - last 24 hr 02/02/25 02/03/25 18:21 05:23 WBC 8.8 6.8 RBC 4.80 4.51 Hgb 13.6 12.8 L Hct 40.8 L 38.2 L MCV 85 85 MCH 28.3 28.4 MCHC 33.3 33.5 RDW Std Deviation 39.6 40.1 Plt Count 334 D 287 D Neut % (Auto) 66 63 Lymph % (Auto) 23 22 Ada % (Auto) 8 10 Eos % (Auto) 2 5 Baso % (Auto) 1 1 Neut # (Auto) 5.8 4.3 Lymph # (Auto) 2.0 1.5 Ada # (Auto) 0.7 0.7 Eos # (Auto) 0.2 0.3 Baso # (Auto) 0.1 0.1 Immature Gran # (Auto) 0.04 H 0.03 H Absolute Nucleated RBC 0.00 0.00 Immature Gran % 1 H 0 Nucleated RBC % 0 0 PT 11.6 11.7 INR 1.1 1.1 APTT 26.5 26.8 Sodium 137 140 Potassium 4.6 3.8 D Chloride 102 104 Carbon Dioxide 27.7 28.2 Anion Gap 7 8 BUN 8 L 7 L Creatinine 0.7 0.7 Estim Creat Clear Calc 126.3 113.9 eGFR > 60 > 60 BUN/Creatinine Ratio 11 L 10 L Glucose 116 H 101 Calculated Osmolality 273 L 277 Calcium 9.9 9.4 Corrected Calcium 9.9 9.4 Phosphorus 5.1 Magnesium 1.9 Total Bilirubin 0.4 0.5 AST 27 21 ALT 17 15 Alkaline Phosphatase 376 H 339 H D Lactate Dehydrogenase 162 Total Protein 7.8 6.8 Albumin 4.5 4.0 D Globulin 3.3 2.8 Albumin/Globulin Ratio 1.4 1.4 Prostate Specific Ag 0.54 Quality Measures Quality Measures VTE prophylaxis Assessment & Plan Assessment Current Active Medications: Generic Name Dose Route Start Last Admin Trade Name Freq PRN Reason Stop Dose Admin Acetaminophen 650 mg 02/02/25 20:38 Acetaminophen 325 Mg Tablet PO 03/04/25 20:37 Q6H PRN Fever >100.3 or pain 1-3 Albuterol/Ipratropium 3 ml 02/02/25 20:38 Albuterol/Ipratropium (Duoneb) Rt Stacia 3 Ml Nebu INH 03/04/25 20:37 Q2HR PRN SHORTNESS OF BREATH OR WHEEZE Lorazepam 0.5 mg 02/02/25 20:44 Lorazepam 0.5 Mg Tablet PO 02/07/25 20:43 Q4HR PRN CIWA Score 2-6 Lorazepam 1 mg 02/02/25 20:44 Lorazepam 0.5 Mg Tablet PO 02/07/25 20:43 Q4HR PRN CIWA SCORE 7-11 Lorazepam 2 mg 02/02/25 20:44 Lorazepam 0.5 Mg Tablet PO 02/07/25 20:43 Q4HR PRN CIWA SCORE 12-15 Ondansetron HCl 4 mg 02/02/25 20:38 Ondansetron Inj 2 Mg/Ml Inj 2 Ml IV 03/04/25 20:37 Q6H PRN NAUSEA OR VOMITING Protocol Oxycodone/Acetaminophen 1 tab 02/02/25 20:38 02/03/25 05:46 Oxycodone/Apap 5/325 Tablet PO 02/07/25 20:37 1 tab Q6H PRN Administration Pain Scale 4-10 (Moderate Plan Assessment and plan: Summary: The patient is a 49-year-old male with no previous medical history who came to the ED due to shortness of breath that started a day ago was found to have right sided pneumonia and pleural effusion, osteoblastic lesions and was admitted for further work up and management. #Right sided large pleural effusion #Right sided lung infiltrate #Metastatic cancer Patient reports mild chest pain. Patient has a history of right sided pneumonia in December 2024. Chest x-ray showed bilateral pneumonia with large right pleural effusion, CT chest with contrast reviewed in addition to large right pleural effusion and right lung pneumonia noncalcified most likely metastatic pulmonary nodules, widespread osteoblastic metastatic disease. Patient denies unexpected weight loss, denies smoking, dysuria, is afebrile, saturates well on room air, denies cough. CT abdomen pelvis shows widespread osteoblastic metastatic disease, recommended transrectal prostate sonographic Plan: -Will hold antibiotics, no signs and symptoms of infections, will monitor for fever. -Pain management -Ultrasound-guided thoracentesis -Pleural fluid cytology, amylase, LDH, glucose ordered -Consulted oncology, appreciate recommendations #Osteoblastic bone lesions Patient reports mild chest pain. Plan: - pain control as needed #History of alcohol use Minimal symptoms of alcohol withdrawal Plan: - CIWA protocol Health maintenance: FEN: Cardiac DVT prophylaxis: SCDs GI prophylaxis: none Dispo: med surg observation CODE STATUS: Full code Case discussed with Attending Dr. Valerio and senior PGY 2 Dr. Hernandez. Desi Zuniga PGY1 Disclaimer: This note was dictated by speech recognition. Minor errors in new grad rn may be present due to voice recognition software.
[2025-02-03 15:29] LABS: Amylase,Pleural Fluid 75 IU/L; Glucose,Pleural Fluid 85 mg/dL; LDH,Pleural Fluid 236 IU/L; Protein Total,Pleural Fluid 5.2 g/dL
[2025-02-03 16:17] LABS: Pleural Fluid WBC 1614 /cmm
[2025-02-03 16:42] LABS: Pleural Fluid Appearance Hazy; Pleural Fluid Color Yellow; Pleural Fluid Mononuclear 77 %; Pleural Fluid Polynuclear 23 %; Pleural Fluid RBC 3000 /cmm
--- NOTE | 2025-02-03 16:43 | ESCONSULT_ITS ---
HPI Data of Consult Consult date: 02/03/25 Requesting Physician: Travis Aburto MD Primary Care Provider: Physician No Primary/Family Consult Narrative Reason for consult: Suspected lung malignancy History of present illness: 49-year-old gentleman admitted with shortness of breath, with chest CT 02/02/2025 revealing large right pleural effusion. There were non calcified likely metastatic pulmonary nodules and widespread osteoblastic metastatic disease. CT abdomen pelvis also revealed widespread mets. There were no focal liver or splenic lesions no pancreatic or adrenal mass no abdominal or pelvic lymphadenopathy. CBC CMP unremarkable other than elevated alk phos. Patient's PSA was low at 0.54. Underwent ultrasound-guided right thoracentesis removing 2850 cc today. Cytology reportedly was requested. Patient now referred for oncological consultation. cc:: cc: Travis Aburto MD Past Medical History Social History SOCIAL: Greenlandic-speaking never smoker Past Medical History Comments PMH COMMENT: No significant past medical history Meds Home Medications and Allergies Allergies Allergy/AdvReac Type Severity Reaction Status Date / Time Penicillins Allergy Intermediate RASH Verified 02/02/25 16:04 Exam Vital Signs Temp Pulse Resp BP Pulse Ox O2 Del Method 98.1 F 83 16 105/69 93 L Room Air 02/03/25 16:00 02/03/25 16:00 02/03/25 16:00 02/03/25 16:00 02/03/25 16:00 02/03/25 16:00 Narrative Exam Appearing comfortable breathing better following thoracentesis Results Labs 02/03/25 05:23 02/03/25 05:23 Labs: Short CBC 02/02/25 02/03/25 Range/Units 18:21 05:23 WBC 8.8 6.8 (3.8-10.6) Thou/mm3 Hgb 13.6 12.8 L (13.5-16.0) g/dL Hct 40.8 L 38.2 L (41.0-53.0) % Plt Count 334 D 287 D (140-440) Thou/mm3 BMP 02/02/25 02/03/25 18:21 05:23 Sodium 137 140 Potassium 4.6 3.8 D Chloride 102 104 Carbon Dioxide 27.7 28.2 BUN 8 L 7 L Creatinine 0.7 0.7 Glucose 116 H 101 Calcium 9.9 9.4 Liver Function 02/02/25 02/03/25 Range/Units 18:21 05:23 Total Bilirubin 0.4 0.5 (0.3-1.2) mg/dL AST 27 21 (0-34) U/L ALT 17 15 (10-49) U/L Alkaline Phosphatase 376 H 339 H D (46-116) U/L Albumin 4.5 4.0 D (3.5-5.0) gm/dL Assessment and Plan Additional Assessment & Plan Additional Plan: 1. Admitted with shortness of breath with large right pleural effusion and malignant appearing nodules in the lung and bone. 2. Thoracentesis performed with pleural effusion being checked for cytology. 3. PSA is low. Ordered other common tumor markers, CEA CA 19?9 3. Will follow. Thank you for allowing me to evaluate this patient
[2025-02-03] MEDS: ACETAMINOPHEN 325 MG TABLET 650 MG PO (21:50)
[2025-02-04] VITALS (8 sets, daily range): BP systolic 102–122; BP diastolic 66–84; PULSE 68–89; RESP 18–97; TEMP 36.1–36.6; O2SAT 93–97
[2025-02-04] MEDS: oxyCODONE/APAP 5/325 TABLET 1 TAB PO ×2 (05:42→11:16)
[2025-02-04 06:11] LABS: Basophils # (Auto) 0.1 Thou/mm3 (0.0-0.2); Basophils % (Auto) 1 % (0-2.5); Eosinophils # (Auto) 0.4 Thou/mm3 (0.0-0.5); Eosinophils % (Auto) 4 % (0-10); Hemoglobin 12.8 g/dL (13.5-16.0); Immature Granulocytes % (Auto) 0 % (0-0); Immature Granulocytes Auto 0.03 Thou/mm3 (0.00-0.00); Lymphocytes # (Auto) 1.7 Thou/mm3 (1.0-4.8); Lymphocytes % (Auto) 20 % (10-50); Mean Corpuscular HGB Conc 33.7 g/dl (31.0-37.0); Mean Corpuscular Hemoglobin 28.5 pg (25.0-35.0); Mean Corpuscular Volume 85 fL (80-100); Monocytes # (Auto) 0.8 Thou/mm3 (0.0-0.8); Monocytes % (Auto) 9 % (0-12); Neutrophils # (Auto) 5.8 Thou/mm3 (1.8-7.7); Neutrophils % (Auto) 66 % (37-80); Nucleated Red Blood Cell % 0 /100 WBC (0); Platelet Count 260 Thou/mm3 (140-440); RDW Standard Deviation 40.1 fL (35.1-43.9); Red Blood Count 4.49 Miln/mm3 (4.50-5.90); White Blood Count 8.8 Thou/mm3 (3.8-10.6)
[2025-02-04 06:31] LABS: Alanine Aminotransferase 13 U/L (10-49); Albumin, Serum 3.9 gm/dL (3.5-5.0); Albumin/Globulin Ratio 1.3 (1.2-2.2); Alkaline Phosphatase 323 U/L (46-116); Anion Gap 10 (7-16); Aspartate Amino Transferase 17 U/L (0-34); BUN/Creatinine Ratio 16 Ratio (12-20); Bilirubin,Total 0.4 mg/dL (0.3-1.2); Blood Urea Nitrogen 11 mg/dL (9-23); Calcium 9.7 mg/dL (8.3-10.6); Calcium (Corrected) 9.8 mg/dL (8.5-10.1); Carbon Dioxide 27.5 mMol/L (20.0-31.0); Chloride 102 mMol/L (98-107); Creatinine (Component) 0.7 mg/dL (0.6-1.3); Estimated Creatinine Clearance 113.9 mL/min (>60); Globulin 2.9 gm/dL (2.3-3.5); Glucose 104 mg/dL (74-106); Osmolality,Calculated 276 (275-295); Potassium 4.2 mMol/L (3.4-5.1); Sodium 139 mMol/L (136-145); Total Protein 6.8 gm/dL (5.7-8.2); eGFR > 60 See Note
[2025-02-04] MEDS: SENNA TABLET 1 TAB PO (10:39)
[2025-02-04 14:02] LABS: Cocci Serology, IgM Negative (Negative)
--- NOTE | 2025-02-04 14:27 | PD.RESDS ---
Planned Discharge Date 02/04/25 DS: Providers Provider Date of admission: 02/03/25 08:09 Primary care physician: Physician No Primary/Family Admitting Provider: Travis Aburto MD Attending Provider on Admission: Pedro Valerio MD Consults: 02/02/25 22:57 [facility] Referral - Knowledge Deficit Routine Comment: Positive screening for knowledge deficit needs. 02/03/25 11:01 Consult to Oncology Routine Comment: Consulting Provider: Bari Schwartz Attending Provider on DC: Mk Hernandez MD Discharging Provider: Mk Hernandez MD DS: Diagnosis Problem List Completed Was Problem List Reviewed/Reconciled?: Yes Hospital Course Hospital Course Hospital course: Mr. Hidalgo a 49-year-old male with no previous medical history came to the ED on 02/02/25 due to shortness of breath. In ED, Chest x-ray showed bilateral pneumonia with large right pleural effusion, CT chest with contrast reviewed in addition to large right pleural effusion and right lung pneumonia noncalcified most likely metastatic pulmonary nodules, widespread osteoblastic metastatic disease. CT abdomen pelvis also revealed widespread mets. There were no focal liver or splenic lesions no pancreatic or adrenal mass no abdominal or pelvic lymphadenopathy. CBC CMP unremarkable other than elevated alk phos. Underwent ultrasound-guided right thoracentesis removing 2.85 L fluid. Cytology report showed exudative effusion. Patient was referred for oncological consultation to Dr. Schwartz. Patient's PSA was low at 0.54, CEA was WNL and CA 19-9 pending. Over time patient's shortness of breath improved and he was safe to be discharged home on Levoquin antibiotics. Patient was also advised to follow up academic clinic tomorrow (02/05/25) and oncologist Dr. Schwartz. #Right sided large pleural effusion #Metastatic cancer #Osteoblastic bone lesions #History of alcohol use Discharge summary was reviewed with my attending Dr. Valerio. Mk Hernandez PGY-2 Status at Discharge Overall status at discharge: patient is progressing back to baseline Time Spent with Patient Time attestation: Total time spent providing and/or coordinating discharge services: Time spent: Greater than 30 minutes Exam Vital Signs Temp Pulse Resp BP Pulse Ox O2 Del Method 97 F 83 19 102/69 96 Room Air 02/04/25 12:00 02/04/25 12:00 02/04/25 12:00 02/04/25 12:00 02/04/25 12:00 02/04/25 12:00 Narrative Exam Physical Exam General: Awake and in no acute distress. Conversational and non-toxic appearing. HEENT: Normocephalic, atraumatic, mucous membranes moist. Heart: Regular rate and rhythm, no murmurs. Lungs: Decreased breathing sounds on in the lower part of right lung. Abdomen: Soft, nondistended, nontender, positive bowel sounds. ?No guarding or rebound tenderness. Neurologic: Alert and oriented x3, no gross neurological deficit, and patient able to move all 4 extremities. Extremities: No edema. Skin: No rash or ecchymoses. Discharge Plan Plan Patient Disposition: HOME (Self Care) Patient condition on transfer: Stable Care Plan Goals: Follow up at the [facility] tomorrow, February 05 at 2PM Follow up with Dr [facility]. Call their office to schedule and appointment. Return to the Emergency Department if your symptoms worsen. Lorene de seguimiento en el [facility]?raj, 4 de batsheva, a las 14:00 h. Consulte con la Dra. Schwartz en el [facility]. Llame a lao consultorio para programar phong lorene. Si paul s?ntomas empeoran, regrese a Urgencias. Prescriptions/Referrals Prescriptions/Med Rec: New levofloxacin 750 mg tablet 750 mg PO QDAY 10 Days Qty: 10 0RF Continued ibuprofen 600 mg tablet 600 mg PO Q6H PRN (Reason: pain) Qty: 30 0RF Referrals: [facility] [Other] - 02/05/25 2:00 pm Bari Schwartz MD [Physician] - (Call the office for appointment) No Primary/Family,Physician [Primary Care Provider] - Patient/Caregiver Discharge Instructions Education Materials: Pleural Effusion, Thoracentesis Dc, Understanding Coccidioidomycosis Print Language: Martiniquais Stand Alone Forms: Jerica Award Info., Patient Portal Info Letter Discharge Order Discharge Orders: Discharge (Routine); Ordered 02/04/25 Ordered By: Mk Hernandez Quality Discharge Quality Measures VTE prophylaxis
[2025-02-05 11:12] LABS: Cocci Serology, IgG Negative (Negative)
[2025-02-09 06:44] LABS: CA 19-9 Antigen* 173 U/mL (<34)
== END 2025-02-04 13:59 | disposition home or self-care (01) | DRG 694 ==
LOC: SERX 20:54 → S3SX 02-03 06:31 → SERHOLD 02-03 06:31
PROVIDERS: Radiology Therapeutic Radiology; Registered Nurse General Practice; Admitting Provider Student in an Organized Health Care Education/Training Program; Emergency Provider Emergency Medicine; Visit Provider Internal Medicine
DX: C80.1 Malignant (primary) neoplasm, unspecified (principal); C78.00 Secondary malignant neoplasm of unspecified lung; J18.9 Pneumonia, unspecified organism; F10.10 Alcohol abuse, uncomplicated; J91.0 Malignant pleural effusion; C79.51 Secondary malignant neoplasm of bone; Z87.01 Personal history of pneumonia (recurrent); Z88.0 Allergy status to penicillin
CPT/HCPCS: 36415; 71046; 71260; 74177; 80053; 82150; 82378; 82945; 83615; 83735; 84100; 84153; 84157; 85025; 85610; 85730; 86301; 86331; 86635; 87070; 87075; 87205; 87400; 87811; 89051; 93005; 96372; 99285; A4649; C1729; G0378; J1885; J3490; Q9967; A9270

== ENCOUNTER 2025-02-05 14:53 | Outpatient (AMB) | payer MEDICAID, SELFPAY ==
[2025-02-05 14:00] VITALS: BP 109/74; PULSE 101; RESP 16; TEMP 35.7; O2SAT 95; BMI 24.3
--- NOTE | 2025-02-05 16:56 | ACNOTE_ITS ---
Vital Signs 02/05/25 14:00 Height 1.68 m Height Method Stated Weight 68.549 kg Weight Measurement Method Standing Scale BMI 24.3 BP 109/74 Blood Pressure Source Automatic Cuff Blood Pressure Location Left Upper Arm Position Sitting Respiration 16 Pulse 101 H Pulse Source Monitor Temp 96.3 F L Temp Source Temporal Artery Scan Pulse Oximetry (%) 95 Oxygen Delivery Method Room Air Allergies/Meds Allergies & Medications Allergies Penicillins Allergy (Intermediate, Verified 02/08/25 09:53) RASH Medication Reconciliation ibuprofen 600 mg tablet 600 mg PO Q6H PRN pain #30 tabs 12/26/24 [Rx Confirmed 02/08/25] levofloxacin 750 mg tablet 750 mg PO QDAY 10 days #10 tabs 02/04/25 [Rx Confirmed 02/08/25] tramadol 50 mg tablet 50 mg PO Q6H PRN pain #30 tabs 02/05/25 [Rx Confirmed 02/08/25] MA Intake Visit Data Collection New Patient or Established: Established Patient (seen at [facility] within 3 years) Seen by Clinical Staff ONLY (RN/MA): No Pain Present Currently: No Pain scale:: 0 Pain Scale Used: Storm-Bender/Numerical Employment Advisor Required: No PCP or OBGYN visit in last 3 months: Yes Hx Now: No Do You Feel Safe at Home: Yes Authorities Contacted: N/A Smoking Status Smoking Status: Never smoker Immunization / Flu Flu Vaccine in the Last 12 Months: No Flu Vaccine Exclusion Criteria: Refused by Patient Past Medical History Past Medical History CARDIAC: Negative Cardiac Disorders or Congestive Heart Failure RESPIRATORY: Negative Chronic Obstructive Pulmonary Disease (COPD) or Asthma GENITOURINARY: Negative Renal Disease ENDOCRINE: Negative Diabetes Mellitus Type 1 or Diabetes Mellitus Type 2 HEMATOLOGIC: Negative Sickle Cell Disease OTHER HISTORY: Negative Falls Social History SMOKING STATUS: Smoking status: Never smoker ALCOHOL: Alcohol Intake: Current ALCOHOL FREQUENCY: Alcohol Intake Frequency: 0-2 Drinks per Day HOUSING: Housing: House LIVES WITH: Lives With: Spouse Patient Roxy Cerna Social History Living Situation History Housing: House Housing Other:: Pt lives with Tobacco History Smoking Status: Never smoker Alcohol History Alcohol Intake: Current Alcohol Intake Frequency: 0-2 Drinks per Day Substance Use History Substance Use: marijuana Domestic Abuse History Do You Feel Safe at Home: Yes Review of Systems Report any current symptoms Only answer those that you have currently: Past Medical History Past Medical History Have you ever been diagnosed with any of the following: Cardiology Problems Congestive Heart Failure: No Respiratory Problems Chronic Obstructive Pulmonary Disease (COPD): No Asthma: No Genital/Urinary Problems Renal Disease: No Endocrine Problems Diabetes Mellitus Type 1: No Diabetes Mellitus Type 2: No Blood Problems Sickle Cell Disease: No Other Problems Falls: No History of Present Illness HPI Narrative Mr. Hidalgo a 49-year-old male with no past medical history who presented to [facility] emergency department for shortness of breath. Chest x-ray showed bilateral pneumonia with large right pleural effusion, CT chest with contrast reviewed in addition to large right pleural effusion and right lung pneumonia noncalcified most likely metastatic pulmonary nodules, widespread osteoblastic metastatic disease. CT abdomen pelvis also revealed widespread osteoblastic disease, there was concern of enlarged prostate, further transrectal ultrasound of prostate was recommended. There were no focal liver or splenic lesions no pancreatic or adrenal mass no abdominal or pelvic lymphadenopathy. Labs were unremarkable other than elevated alkaline phosphatase. Patient eventually underwent ultrasound-guided right thoracentesis removing 2.85 L fluid, labs significant for exudative effusion and cytology pending. Oncology was consulted to establish care, otherwise patient's PSA and CEA were unremarkable. Patient was discharged to continue outpatient follow-up with [facility]. 02/05/2025: Patient seen and examined in clinic, posthospital discharge. Patient complains of improved shortness of breath, does complain of on and off back pain, patient has pending cytology, patient to follow-up with [facility], will establish care. Patient will be referred to Dr. Schwartz. Patient will follow-up with primary care physician next Karl, will prescribe tramadol for severe/breakthrough pain, otherwise reports that pain is somewhat managed with ibuprofen. Patient to follow-up as needed. Review of Systems Review of Systems Systems Reviewed: All systems reviewed, normal except as documented Objective/Exam Narrative Physical exam: Physical Exam General: Awake and in no acute distress. Conversational and non-toxic appearing. HEENT: Normocephalic, atraumatic, mucous membranes moist. Heart: Regular rate and rhythm, no murmurs. Lungs: Clear to auscultation with no wheezing or crackles. Abdomen: Soft, nondistended, nontender, positive bowel sounds. ?No guarding or rebound tenderness. Neurologic: Alert and oriented x3, no gross neurological deficit, and patient able to move all 4 extremities. Extremities: No edema. Skin: No rash or ecchymoses. Assessment & Plan Diagnosis / Problem List (1) Suspected malignant neoplasm: Status: Acute Assessment & Plan: Presented to [facility] emergency department for shortness of breath. Chest x-ray showed bilateral pneumonia with large right pleural effusion, CT chest with contrast reviewed in addition to large right pleural effusion and right lung pneumonia noncalcified most likely metastatic pulmonary nodules, widespread osteoblastic metastatic disease. CT abdomen pelvis also revealed widespread osteoblastic disease, there was concern of enlarged prostate, further transrectal ultrasound of prostate was recommended. Labs were unremarkable other than elevated alkaline phosphatase. Patient eventually underwent ultrasound-guided right thoracentesis removing 2.85 L fluid, labs significant for exudative effusion and cytology pending. Pleural fluid significant for color?yellow, appearance?hazy, WBC 1614, RBC 3000, polynuclear WBC 23%, mononuclear 77%, pleural total protein 5.2, pleural LDH 236, pleural glucose 85, pleural amylase 75. Per lights criteria effusion is exudative. Plan: -Follow cytology outpatient -Will refer to oncology, Dr. Schwartz for further management -Patient complains of upper back pain and lower back pain, has multiple osteoblastic lesions of lumbar spine -Will prescribe tramadol for breakthrough pain -Follow-up as needed -Scheduled for follow-up with primary care physician next Saturday, PCP will transfer patient's care to cancer treatment center (2) Osteolytic lesion: Status: Acute Assessment & Plan: As above Plan: As above (3) Pleural effusion: Status: Acute Assessment & Plan: As above Plan: As above Plan Case discussed with Attending Dr. Bell. Desi Zuniga PGY1 Disclaimer: This note was dictated by speech recognition. Minor errors in geotechnical laboratory technician may be present due to voice recognition software. Physician Billing TCM TCM: High 1-7 days-CPT [id number] Office Procedures [facility] Level of Care Nursing/Assessment Patient Status: Established Patient Nursing Assessment/Reassessment: Medication Reconciliation, Update PMH in EMR and Vital Signs Coordination of Care: Complex Care and Chronic Disease 1-5, Consent,records obtained, informed consent, Education Simp Pt/Fam and Staff clarify orders Established Patient Charge Established Patient Point Assignment: 85 Established Patient Point Charge: EP Level 3 (80-115)
== END 2025-02-05 15:24 | disposition home or self-care (01) ==
LOC: HODAHC 14:53
PROVIDERS: Supervising Provider Internal Medicine
DX: J90 Pleural effusion, not elsewhere classified (principal); R74.8 Abnormal levels of other serum enzymes; M89.9 Disorder of bone, unspecified; M54.6 Pain in thoracic spine; M54.50 Low back pain, unspecified
CPT/HCPCS: 99213; G0463

== ENCOUNTER → 2025-03-03 | Outpatient (CLI) | payer MEDICAID, SELFPAY ==
--- NOTE | 2025-03-03 16:41 | XR_ITS ---
Examination: PA lateral chest 2 views TECHNIQUE: PA lateral chest 2 views Exam date and time: March 03, 2025, 1730 hours INDICATIONS: Coughing congestion this week FINDINGS: Pneumonia right lung with large right pleural effusion Left lung clear Intact osseous structures IMPRESSION: Right lung pneumonia with large right pleural effusion
== END | disposition home or self-care (01) ==
PROVIDERS: PCP Physician Assistant; Referring Provider Physician Assistant; Visit Provider Physician Assistant
DX: J18.9 Pneumonia, unspecified organism (principal); J90 Pleural effusion, not elsewhere classified
CPT/HCPCS: 71046

== ENCOUNTER 2025-03-12 13:07 | Emergency (ER) | payer MEDICAID, SELFPAY ==
[2025-03-12 13:51] VITALS: BP 127/80; PULSE 112; RESP 18; TEMP 36.7; O2SAT 94; BMI 26.1
--- NOTE | 2025-03-12 13:51 | XR_ITS ---
Examination: PA lateral chest 2 views TECHNIQUE: Upright PA lateral chest 2 views Exam date and time: March 12, 2025 1509 hours Comparison March 03, 2025 INDICATIONS: Shortness of breath this week. FINDINGS: Again noted large right pleural effusion Normal heart size Left lung clear IMPRESSION: Again noted large right pleural effusion
--- NOTE | 2025-03-12 13:58 | EDRME_ITS ---
Rapid Medical Screening Exam [facility] Arrival date/time: 03/12/25 13:07 49-year-old male with a history of a pleural effusion presents to the emergency room with a chief complaint of shortness of breath. Patient states he had an outpatient chest x-ray by his primary care provider who told him that his pleural effusion has returned. I have greeted and performed a focused initial assessment of this patient. A comprehensive ED assessment and evaluation of the patient, analysis of all test results, and completion of the medical decision making process will be conducted by additional ED providers. Chief Complaint: Shortness of Breath/Dyspnea Vital signs: Vital Signs Temperature 98.1 F 03/12/25 13:51 Pulse Rate 112 H 03/12/25 13:51 Respiratory Rate 18 03/12/25 13:51 Blood Pressure 127/80 03/12/25 13:51 Pulse Oximetry (%) 94 L 03/12/25 13:51 Oxygen Delivery Method Room Air 03/12/25 13:51 Vital signs reviewed by provider: Yes
[2025-03-12 14:21] VITALS: BP 118/57; PULSE 106; RESP 18; TEMP 37.2; O2SAT 95
--- NOTE | 2025-03-12 15:09 | PD.EDSOB ---
ED SOB =RME/HPI General Chief Complaint: Shortness of Breath/Dyspnea Stated Complaint: Sent from PCP to have fluid drained from his lungs Time Seen by Provider: 03/12/25 14:46 Arrival date/time: 03/12/25 13:07 Limitations: no limitations RME / HPI RME / HPI Narrative: 03/12/25 13:07 49-year-old male with a history of a pleural effusion presents to the emergency room with a chief complaint of shortness of breath. Patient states he had an outpatient chest x-ray by his primary care provider who told him that his pleural effusion has returned. I have greeted and performed a focused initial assessment of this patient. A comprehensive ED assessment and evaluation of the patient, analysis of all test results, and completion of the medical decision making process will be conducted by additional ED providers. DR. SPAIN MAIN ED EVALUATION: 49 year old male presents to the ED sent by PCP for further evaluation and treatment of abnormal chest xray. Patient states for about 1 month he has felt short of breath and had consulted with his PCP who ordered a chest xray last week. Patient stated today he received a call from his PCP advising he come to the ED for further treatment of the fluid in his lung. No other associated symptoms or complaints reported. Patient denies chest pain, abdominal pain, n/v/d, or urinary symptoms. Per EMR review, the patient was recently admitted here 02/02/2025 through 02/04/2025 and during admission noted to have malignant pleural effusion that was drained, noncalcified likely metastatic pulmonary nodules, widespread osteoblastic mets disease and is followed by oncologist Dr. Cody. Related Data Previous Rx's ?Medication ?Instructions ?Recorded ibuprofen 600 mg tablet 600 mg PO Q6H PRN pain #30 tabs 12/26/24 tramadol 50 mg tablet 50 mg PO Q6H PRN pain #30 tabs 02/05/25 Allergies Allergy/AdvReac Type Severity Reaction Status Date / Time Penicillins Allergy Intermediate RASH Verified 03/12/25 13:12 Review of Systems Review of Systems Narrative Review of Systems: GEN: No fever, no chills, no weight loss EYES: No discharge, no visual changes, no pain HEENT: No ear pain, no congestion, no sore throat PULM: + shortness of breath, no cough, no congestion CV: No chest pain, no palpitations GI: No nausea, no vomiting, no diarrhea, no pain, no constipation : No frequency, no urgency, no dysuria MUSC/SKEL: No joint pain, no back pain SKIN: No rash NEURO: No weakness, no headache Past Medical History Past Medical History CARDIAC: Negative Cardiac Disorders or Congestive Heart Failure RESPIRATORY: Negative Chronic Obstructive Pulmonary Disease (COPD) or Asthma GENITOURINARY: Negative Renal Disease ENDOCRINE: Negative Diabetes Mellitus Type 1 or Diabetes Mellitus Type 2 HEMATOLOGIC: Negative Sickle Cell Disease OTHER HISTORY: Negative Falls Social History SMOKING STATUS: Never smoker ED Exam General Limitations: Present no limitations General appearance: Present alert and other (Thin appearing ) Head Head exam: Present atraumatic, normocephalic and normal inspection Eye Eye exam: Present normal appearance, PERRL and EOMI ENT ENT exam: Present normal exam, normal oropharynx and mucous membranes moist Neck Neck exam: Present normal inspection, full ROM, trachea midline and other (No JVD, no mass, ) Chest Chest inspection: Present normal inspection and symmetric chest wall rise Respiratory Respiratory exam: Present other (Lungs anteriorly are clear ) Cardiovascular Cardiovascular exam: Present regular rate, normal rhythm and normal heart sounds Abdominal Exam Abdominal exam: Present soft and normal bowel sounds Extremities Exam Extremities exam: Present normal inspection and full ROM Back Exam Back exam: Present normal inspection and full ROM Neurological Exam Neurological exam: Present alert, oriented X3 and CN II-XII intact Psychiatric Psychiatric exam: Present normal affect and normal mood Skin Skin exam: Present warm, dry, intact and normal color Course Quality Measures none Orders Category Date Time Status Hep [Insert IV] NOW Care 03/12/25 15:34 Completed US thoracentesis Stat Exams 03/12/25 13:51 Ordered XR chest 2V Stat Exams 03/12/25 13:51 Completed CBC Stat Lab 03/12/25 15:20 Completed CMP [Comprehensive Metabolic Panel] Stat Lab 03/12/25 15:20 Completed PT [Prothrombin Time with INR] Stat Lab 03/12/25 15:20 Completed PTT [Partial Thromboplastin Time] Stat Lab 03/12/25 15:20 Completed Sodium Chloride 0.9% 1000 ml [Ns] 1,000 ml Med 03/12/25 15:35 Discontinued IV 125 mls/hr Vital Signs Vital signs: Vital Signs Temperature 98.1 F 03/12/25 13:51 Pulse Rate 112 H 03/12/25 13:51 Respiratory Rate 18 03/12/25 13:51 Blood Pressure 127/80 03/12/25 13:51 Pulse Oximetry (%) 94 L 03/12/25 13:51 Oxygen Delivery Method Room Air 03/12/25 13:51 Shortness of Breath / Dyspnea MDM Narrative MDM Narrative:: Daina Key, kat scribing for and in the presence of Dr. Spain. 1845: Thoracentesis has yet to be performed and was ordered at 13:51. Throughout ED course patient and vitals have remained stable, saturating 92-95% on room air. We reviewed all the results, analysis, and treatment plans. Advised patient return Saturday for ultrasound guided thoracentesis or return sooner if his symptoms worsen. Patient is amenable to discharge. Strict return precautions were outlined. Patient was discharged in stable condition. Patient data External records reviewed:: [facility] previous records (I reviewed admission 02/02/2025 through 02/04/2025) Clinical information provided by:: patient Social determinants that could affect healthcare access:: none Patient has the following chronic illnesses:: Patient recently diagnosed with malignant pleural effusion, noncalcified likely metastatic pulmonary nodules, widespread osteoblastic mets disease How is presenting disease/condition affected by chronic disease/condition?: uneffected by Evaluation data The following diagnostics were reviewed and interpreted by me:: lab results and radiology exam(s) Lab and/or radiology exams considered but not ordered:: None Interpretation Summary: Ordering Physician: Saúl Bass Date of Service: 03/12/25 Procedure(s): XR chest 2V Accession Number(s): [id number] cc: Saúl Bass; Zachary Garcia MD~ Examination: PA lateral chest 2 views TECHNIQUE: Upright PA lateral chest 2 views Exam date and time: March 12, 2025 1509 hours Comparison March 03, 2025 INDICATIONS: Shortness of breath this week. FINDINGS: Again noted large right pleural effusion Normal heart size Left lung clear IMPRESSION: Again noted large right pleural effusion Dictated By: Zachary Garcia MD Signed By: <Electronically signed by Zachary Garcia MD in OV> 03/12/25 1421 Medications / Prescriptions Medications or Prescriptions considered but not ordered:: None Medication administrations:: Medication Administration History Discontinued Medications Sodium Chloride (Ns) 1,000 mls @ 125 mls/hr IV .Q8H JUAN JOSE Stop: 04/11/25 15:34 Last Admin: 03/12/25 15:48 Dose: 125 mls/hr Documented By: TM See above Consultations Consultation(s) initiated? (list below): No Diagnosis Shortness of Breath Differential Diagnosis: acute exacerbation of chronic obstructive airways disease, congestive heart failure, community acquired pneumonia, asthma with exacerbation, pulmonary embolism and other (Pleural effusion ) Most likely diagnosis given after review of the tests above:: Pleural effusion Admission Indicated Admission indicated?: not indicated Admission Request Was there a request for admission?: No Disposition Plan Disposition Plan: Discharge Discharge Attestation Discharge Attestation: The patient and all family members were given an opportunity to ask questions and understood the discharge instructions. Discharge instructions specifically effects, indications for sooner follow up or return to the emergency department, and the expected course of current diagnosis. Patient condition: Stable Discharge Plan Plan Patient Disposition: HOME (Self Care) Prescriptions/Referrals Prescriptions/Med Rec: No Action tramadol 50 mg tablet 50 mg PO Q6H PRN (Reason: pain) Qty: 30 0RF ibuprofen 600 mg tablet 600 mg PO Q6H PRN (Reason: pain) Qty: 30 0RF Referrals: Kenneth Baker PA-C [Primary Care Provider] - In 1 week Problem List Clinical Impression: Pleural effusion Patient/Caregiver Discharge Instructions Education Materials: ED Pleural Effusion Additional Instructions: Follow-up with your primary care doctor in 3 days for recheck. Return to the emergency department sooner if symptoms worsen or if you notice any new, concerning issues. Print Language: Greenlandic Stand Alone Forms: [employer]ica Award Info., Patient Portal Info Letter
[2025-03-12 15:46] LABS: Basophils # (Auto) 0.1 Thou/mm3 (0.0-0.2); Basophils % (Auto) 1 % (0-2.5); Eosinophils # (Auto) 0.1 Thou/mm3 (0.0-0.5); Eosinophils % (Auto) 1 % (0-10); Hematocrit 36.7 % (41.0-53.0); Hemoglobin 12.7 g/dL (13.5-16.0); Immature Granulocytes % (Auto) 1 % (0-0); Immature Granulocytes Auto 0.08 Thou/mm3 (0.00-0.00); Lymphocytes # (Auto) 1.9 Thou/mm3 (1.0-4.8); Lymphocytes % (Auto) 22 % (10-50); Mean Corpuscular HGB Conc 34.6 g/dl (31.0-37.0); Mean Corpuscular Hemoglobin 27.8 pg (25.0-35.0); Mean Corpuscular Volume 80 fL (80-100); Monocytes # (Auto) 0.8 Thou/mm3 (0.0-0.8); Monocytes % (Auto) 9 % (0-12); Neutrophils # (Auto) 5.8 Thou/mm3 (1.8-7.7); Neutrophils % (Auto) 66 % (37-80); Nucleated Red Blood Cell % 0 /100 WBC (0); Platelet Count 333 Thou/mm3 (140-440); RDW Standard Deviation 38.5 fL (35.1-43.9); Red Blood Count 4.57 Miln/mm3 (4.50-5.90); White Blood Count 8.8 Thou/mm3 (3.8-10.6)
[2025-03-12] MEDS: SODIUM CHLORIDE 0.9% 1000 ML 1,000 ML 125 ML IV (15:48)
[2025-03-12 16:07] LABS: Alanine Aminotransferase 10 U/L (10-49); Albumin, Serum 4.3 gm/dL (3.5-5.0); Albumin/Globulin Ratio 1.5 (1.2-2.2); Alkaline Phosphatase 483 U/L (46-116); Anion Gap 7 (7-16); Aspartate Amino Transferase 14 U/L (0-34); BUN/Creatinine Ratio 11 Ratio (12-20); Bilirubin,Total 0.5 mg/dL (0.3-1.2); Blood Urea Nitrogen 8 mg/dL (9-23); Calcium 8.9 mg/dL (8.3-10.6); Calcium (Corrected) 8.9 mg/dL (8.5-10.1); Carbon Dioxide 25.8 mMol/L (20.0-31.0); Chloride 103 mMol/L (98-107); Creatinine (Component) 0.7 mg/dL (0.6-1.3); Estimated Creatinine Clearance 105.7 mL/min (>60); Globulin 2.9 gm/dL (2.3-3.5); Glucose 114 mg/dL (74-106); Osmolality,Calculated 271 (275-295); Potassium 4.3 mMol/L (3.4-5.1); Sodium 136 mMol/L (136-145); Total Protein 7.2 gm/dL (5.7-8.2); eGFR > 60 See Note
[2025-03-12 16:36] VITALS: BP 121/81; PULSE 95; RESP 18; TEMP 37.3; O2SAT 95
[2025-03-12 17:18] LABS: INR 1.1 (0.9-1.3); Prothrombin Time 12.3 Seconds (9.0-12.2)
[2025-03-12 18:30] VITALS: BP 119/77; PULSE 96; RESP 18; TEMP 37.2; O2SAT 94
[2025-03-12 19:34] VITALS: BP 122/78; PULSE 96; RESP 22; TEMP 37.2; O2SAT 92
== END 2025-03-12 19:47 | disposition home or self-care (01) ==
PROVIDERS: Nurse Practitioner Family; Emergency Provider Family Medicine; PCP Physician Assistant
DX: J90 Pleural effusion, not elsewhere classified (principal)
CPT/HCPCS: 36415; 71046; 80053; 85025; 85610; 85730; 99284; J7030

== ENCOUNTER 2025-03-15 06:10 | Emergency (ER) | payer MEDICAID, SELFPAY ==
--- NOTE | 2025-03-15 | XR_ITS ---
Examination: PA chest single view TECHNIQUE: Upright PA chest single view Date and time: March 15, 2025 1101 hours comparison March 12, 2025 INDICATIONS: Postthoracentesis today. FINDINGS: Decrease in right pleural fluid although significant residual No pneumothorax Normal heart size IMPRESSION: No pneumothorax post thoracentesis
[2025-03-15 06:17] VITALS: BP 107/75; PULSE 110; RESP 19; TEMP 36.8; O2SAT 95
--- NOTE | 2025-03-15 06:24 | XR_ITS ---
Examination: Ultrasound-guided right thoracentesis Ultrasound right hemithorax Ultrasound left hemithorax Exam date and time: March 15, 2025 1111 hours INDICATIONS: Difficulty breathing this week, large right pleural effusion on chest x-ray March 12, 2025 TECHNIQUE AND FINDINGS: Grayscale sonographic images right and left hemithoraces Large right pleural effusion Informed consent provided. Timeout performed. Skin prepped over the right hemithorax and sterile drape applied maximum sterile barrier technique hand hygiene ultrasound sterile technique 1% lidocaine administered for local anesthesia. Utilizing ultrasonographic guidance 5 Occitan catheter placed in the right pleural space 2500 cc pleural fluid removed IMPRESSION: Successful ultrasound-guided right thoracentesis, 2500 cc pleural fluid removed
[2025-03-15 06:35] VITALS: BP 126/89; PULSE 110; RESP 16; TEMP 37; O2SAT 98; BMI 22.7
--- NOTE | 2025-03-15 07:07 | EDNOTE_ITS ---
ED SOB =RME/HPI General Chief Complaint: Shortness of Breath/Dyspnea Stated Complaint: fluid in R lung Time Seen by Provider: 03/15/25 06:24 Arrival date/time: 03/15/25 06:10 Limitations: no limitations RME / HPI RME / HPI Narrative: DR. SPAIN MAIN ED EVALUATION: 49 year old male with past medical history significant for malignant pleural effusion presents to the Emergency Department with complaint of shortness of breath. He was discharged a few days ago, 03/12/25, with large pleural effusion right side and told to come back to drain the fluid of the right chest. No other associated symptoms or complaints reported. Patient denies chest pain, abdominal pain, nuasea, vomiting, diarrhea, or urinary symptoms. Patient recently diagnosed with malignant pleural effusion, noncalcified likely metastatic pulmonary nodules, widespread osteoblastic mets disease Per EMR review, the patient was recently admitted here 02/02/2025 through 02/04/2025 and during admission noted to have malignant pleural effusion that was drained, noncalcified likely metastatic pulmonary nodules, widespread osteoblastic mets disease and is followed by oncologist Dr. Cody. Related Data Previous Rx's ?Medication ?Instructions ?Recorded ibuprofen 600 mg tablet 600 mg PO Q6H PRN pain #30 t abs 12/26/24 tramadol 50 mg tablet 50 mg PO Q6H PRN pain #30 ta bs 02/05/25 Allergies Allergy/AdvReac Type Severity Reaction Status Date / Time Penicillins Allergy Intermediate RASH Verified 03/12/25 13:12 Review of Systems Review of Systems Systems Reviewed: All systems reviewed, normal except as documented Narrative Review of Systems: GEN: No fever, no chills, no weight loss EYES: No discharge, no visual changes, no pain HEENT: No ear pain, no congestion, no sore throat PULM: + shortness of breath, no cough, no congestion CV: No chest pain, no dyspnea on exertion, no palpitations GI: No nausea, no vomiting, no diarrhea, no pain, no constipation : No frequency, no urgency and no dysuria MUSC/SKEL: No joint pain, no back pain SKIN: No rash PSYCH: No hallucinations, no depression HEME/LYMPH: No easy bleeding or bruising tendencies NEURO: No weakness, no headache Past Medical History Social History SMOKING STATUS: Never smoker SUBSTANCE USE: does not use ALCOHOL: Never ED Exam General Limitations: Present no limitations General appearance: Present alert, in no apparent distress and other (thin appearing) Head Head exam: Present atraumatic Eye Eye exam: Present normal appearance, PERRL and EOMI ENT ENT exam: Present normal exam, normal oropharynx and mucous membranes moist Neck Neck exam: Present normal inspection, full ROM, trachea midline and other (no masses) Expanded Neck Exam Neck exam focused ED: Absent JVD Chest Chest inspection: Present normal inspection and symmetric chest wall rise Expanded Respiratory Exam Location: Right: decreased breath sounds Cardiovascular Cardiovascular exam: Present regular rate, normal rhythm and normal heart sounds Abdominal Exam Abdominal exam: Present soft and normal bowel sounds Extremities Exam Extremities exam: Present normal inspection and full ROM Back Exam Back exam: Present normal inspection and full ROM Neurological Exam Neurological exam: Present alert, oriented X3 and CN II-XII intact Psychiatric Psychiatric exam: Present normal affect and normal mood Skin Skin exam: Present warm, dry, intact and normal color Course Quality Measures none Orders Category Date Time Status US thoracentesis Stat Exams 03/15/25 06:24 Completed XR chest 1V post procedure Stat Exams 03/15/25 Completed Lidocaine 1% Pf 30 ml [Xylocaine 1% Pf 30 ml] Med 03/15/25 11:20 Discontinued 30 ml .ROUTE .STK-MED ONE Vital Signs Vital signs: Vital Signs Temperature 98.3 F 03/15/25 06:17 Pulse Rate 110 H 03/15/25 06:17 Respiratory Rate 19 03/15/25 06:17 Blood Pressure 107/75 03/15/25 06:17 Pulse Oximetry (%) 95 03/15/25 06:17 Oxygen Delivery Method Room Air 03/15/25 06:17 Shortness of Breath / Dyspnea MDM Narrative MDM Narrative:: IShahrzad am scribing for and in the presence of Dr. Spain. Patient had thoracentesis, tolerated well the procedure and no complications. Status post thoracentesis patient is stable. O2 saturation is stable, 99% on room air. Recommended to cardiothoracic surgeon consultation as an outpatient. Patient data External records reviewed:: [facility] previous records (Per EMR review, the patient was recently admitted here 02/02/2025 through 02/04/2025 and during admission noted to have malignant pleural effusion that was drained, noncalcified likely metastatic pulmonary nodules, widespread osteoblastic mets disease and is followed by oncologist Dr. Cody. ) Clinical information provided by:: patient Social determinants that could affect healthcare access:: none Patient has the following chronic illnesses:: Patient recently diagnosed with malignant pleural effusion, noncalcified likely metastatic pulmonary nodules, widespread osteoblastic mets disease. How is presenting disease/condition affected by chronic disease/condition?: caused by Evaluation data The following diagnostics were reviewed and interpreted by me:: radiology exam(s) Lab and/or radiology exams considered but not ordered:: none Interpretation Summary: Procedure(s): US thoracentesis Accession Number(s): [id number] cc: Wing Spain MD; Kenneth Baker PA-C; Zachary Garcia MD~ Examination: Ultrasound-guided right thoracentesis Ultrasound right hemithorax Ultrasound left hemithorax Exam date and time: March 15, 2025 1111 hours INDICATIONS: Difficulty breathing this week, large right pleural effusion on chest x-ray March 12, 2025 TECHNIQUE AND FINDINGS: Grayscale sonographic images right and left hemithoraces Large right pleural effusion Informed consent provided. Timeout performed. Skin prepped over the right hemithorax and sterile drape applied maximum sterile barrier technique hand hygiene ultrasound sterile technique 1% lidocaine administered for local anesthesia. Utilizing ultrasonographic guidance 5 Tajik catheter placed in the right pleural space 2500 cc pleural fluid removed IMPRESSION: Successful ultrasound-guided right thoracentesis, 2500 cc pleural fluid removed Dictated By: Zachary Garcia MD ---- Procedure(s): XR chest 1V post procedure Accession Number(s): [id number] cc: Kenneth Baker PA-C; Zachary Garcia MD~ Examination: PA chest single view TECHNIQUE: Upright PA chest single view Date and time: March 15, 2025 1101 hours comparison March 12, 2025 INDICATIONS: Postthoracentesis today. FINDINGS: Decrease in right pleural fluid although significant residual No pneumothorax Normal heart size IMPRESSION: No pneumothorax post thoracentesis Dictated By: Zachary Garcia MD Medications / Prescriptions Medications or Prescriptions considered but not ordered:: none Medication administrations:: Medication Administration History Discontinued Medications Lidocaine HCl (Lidocaine Inj Pf 1% 30 Ml Vial) Confirm Administered Dose 30 ml .ROUTE .STK-MED ONE Stop: 03/15/25 11:21 Last Admin: 03/15/25 12:17 Dose: Not Given Documented By: SAYDA Non-Admin Reason: Cancelled by Provider see above if any Consultations Consultation(s) initiated? (list below): No Diagnosis Shortness of Breath Differential Diagnosis: acute exacerbation of chronic obstructive airways disease, community acquired pneumonia and other (malignant pleural effusion) Most likely diagnosis given after review of the tests above:: Malignant pleural effusion Status post thoracentesis Admission Indicated Admission indicated?: not indicated Admission Request Was there a request for admission?: No Disposition Plan Disposition Plan: Discharge Discharge Attestation Discharge Attestation: The patient and all family members were given an opportunity to ask questions and understood the discharge instructions. Discharge instructions specifically effects, indications for sooner follow up or return to the emergency department, and the expected course of current diagnosis. Patient condition: Stable Discharge Plan Plan Patient Disposition: HOME (Self Care) Patient condition on transfer: Stable Prescriptions/Referrals Prescriptions/Med Rec: No Action tramadol 50 mg tablet 50 mg PO Q6H PRN (Reason: pain) Qty: 30 0RF ibuprofen 600 mg tablet 600 mg PO Q6H PRN (Reason: pain) Qty: 30 0RF Problem List Clinical Impression: Status post thoracentesis, Malignant pleural effusion Patient/Caregiver Discharge Instructions Education Materials: Thoracentesis Dc Additional Instructions: Please follow-up with your primary care physician within a week. Return to the Emergency Department as needed. Also recommend talking to your doctor about a cardiothoracic surgeon consultation. Josias un seguimiento con lao m?dico de cabecera dentro de phong semana. Regrese al Departamento de Emergencias seg?n sea necesario. Tambi?n recomendamos hablar con lao m?dico sobre phong consulta con un cirujano cardiotor?cico. Print Language: Arabic Stand Alone Forms: [employer]ica Award Info., Patient Portal Info Letter
--- NOTE | 2025-03-15 07:08 | PC.NURSE ---
Received report from Paris VALDEZ and assumed care of patient. Patient sleeping in bed with no signs of distress. at bedside. States pain 02/11.
[2025-03-15 09:35] VITALS: BP 107/78; PULSE 86; RESP 18; TEMP 36.6; O2SAT 97
[2025-03-15 12:04] VITALS: BP 113/83; PULSE 94; RESP 18; TEMP 36.6; O2SAT 99
== END 2025-03-15 14:17 | disposition home or self-care (01) ==
PROVIDERS: Emergency Provider Family Medicine; PCP Physician Assistant
DX: C80.1 Malignant (primary) neoplasm, unspecified (principal); J91.0 Malignant pleural effusion; C79.51 Secondary malignant neoplasm of bone
CPT/HCPCS: 32555; 99284; C1729

== ENCOUNTER 2025-03-22 09:48 | Emergency (ER) | payer MEDICAID, SELFPAY ==
[2025-03-22 09:49] VITALS: BMI 24.5
--- NOTE | 2025-03-22 10:51 | EDRME_ITS ---
Rapid Medical Screening Exam [facility] Arrival date/time: 03/22/25 09:48 49-year-old male with a history of a malignant pleural effusion presents to the emergency room and states that they told him to come in for lab work since he will be having surgery tomorrow morning. Patient was recently admitted in this hospital. I have greeted and performed a focused initial assessment of this patient. A comprehensive ED assessment and evaluation of the patient, analysis of all test results, and completion of the medical decision making process will be conducted by additional ED providers. Chief Complaint: Shortness of Breath/Dyspnea Vital signs reviewed by provider: Yes
[2025-03-22 10:56] VITALS: BP 107/73; PULSE 91; RESP 18; TEMP 36.7; O2SAT 98
[2025-03-22 11:16] LABS: Basophils # (Auto) 0.1 Thou/mm3 (0.0-0.2); Basophils % (Auto) 1 % (0-2.5); Eosinophils # (Auto) 0.1 Thou/mm3 (0.0-0.5); Eosinophils % (Auto) 2 % (0-10); Hematocrit 40.3 % (41.0-53.0); Hemoglobin 13.4 g/dL (13.5-16.0); Immature Granulocytes % (Auto) 1 % (0-0); Immature Granulocytes Auto 0.05 Thou/mm3 (0.00-0.00); Lymphocytes # (Auto) 1.7 Thou/mm3 (1.0-4.8); Lymphocytes % (Auto) 27 % (10-50); Mean Corpuscular HGB Conc 33.3 g/dl (31.0-37.0); Mean Corpuscular Hemoglobin 27.8 pg (25.0-35.0); Mean Corpuscular Volume 84 fL (80-100); Monocytes # (Auto) 0.7 Thou/mm3 (0.0-0.8); Monocytes % (Auto) 11 % (0-12); Neutrophils # (Auto) 3.6 Thou/mm3 (1.8-7.7); Neutrophils % (Auto) 58 % (37-80); Nucleated Red Blood Cell % 0 /100 WBC (0); Platelet Count 301 Thou/mm3 (140-440); RDW Standard Deviation 40.6 fL (35.1-43.9); Red Blood Count 4.82 Miln/mm3 (4.50-5.90); White Blood Count 6.2 Thou/mm3 (3.8-10.6)
[2025-03-22 11:39] LABS: Alanine Aminotransferase 13 U/L (10-49); Albumin, Serum 4.3 gm/dL (3.5-5.0); Albumin/Globulin Ratio 1.5 (1.2-2.2); Alkaline Phosphatase 444 U/L (46-116); Anion Gap 9 (7-16); Aspartate Amino Transferase 16 U/L (0-34); BUN/Creatinine Ratio 9 Ratio (12-20); Bilirubin,Total 0.4 mg/dL (0.3-1.2); Blood Urea Nitrogen 7 mg/dL (9-23); Calcium 9.4 mg/dL (8.3-10.6); Calcium (Corrected) 9.4 mg/dL (8.5-10.1); Carbon Dioxide 27.2 mMol/L (20.0-31.0); Chloride 100 mMol/L (98-107); Creatinine (Component) 0.8 mg/dL (0.6-1.3); Estimated Creatinine Clearance 99.7 mL/min (>60); Globulin 2.8 gm/dL (2.3-3.5); Glucose 119 mg/dL (74-106); Osmolality,Calculated 270 (275-295); Potassium 4.2 mMol/L (3.4-5.1); Sodium 136 mMol/L (136-145); Total Protein 7.1 gm/dL (5.7-8.2); eGFR > 60 See Note
[2025-03-22 12:30] LABS: INR 1.2 (0.9-1.3); Partial Thromboplastin Time 30.7 Seconds (22.0-36.0); Prothrombin Time 12.7 Seconds (9.0-12.2)
--- NOTE | 2025-03-22 13:32 | PC.NURSE ---
@1250- PT CALLED FROM ED LOBBY, NO ANSWER. @1310- PT CALLED AGAIN FROM ED LOBBY; NO ANSWER. @1330- PT CALLED FROM ED [facility] FOR LAST CALL; NO ANSWER. PT ELOPED.
== END 2025-03-22 13:34 | disposition left against medical advice (07) ==
LOC: SERX 11:16
PROVIDERS: Nurse Practitioner Family; Emergency Provider Emergency Medicine; PCP Physician Assistant
DX: R06.02 Shortness of breath (principal); R06.00 Dyspnea, unspecified; Z53.29 Procedure and treatment not carried out because of patient's decision for other reasons
CPT/HCPCS: 36415; 80053; 85025; 85610; 85730; 99281

== ENCOUNTER 2025-03-23 07:55 | Outpatient (CLI) | payer MEDICAID, SELFPAY ==
[2025-03-19 16:15] VITALS: BMI 23.8
[2025-03-23] VITALS (11 sets, daily range): BP systolic 109–121; BP diastolic 74–92; PULSE 84–92; RESP 12–25; TEMP 36.2–36.7; O2SAT 91–98
--- NOTE | 2025-03-23 08:30 | XR_ITS ---
Examination: IR venous implantation Port-A-Cath. Ultrasound-guided needle placement right internal jugular vein. Fluoroscopy AP Chest, portable single view Exam date and time: March 23, 2025 0926 hours INDICATIONS: Diagnosis malignant neoplasm lung, need for long-term intravenous chemotherapy. Informed consent provided Technique: A timeout was completed, verifying correct patient, procedure, site, positioning, and special equipment if applicable The patient was placed in a dependent position appropriate for central line placement based on the vein to be cannulated. The patient's right neck was prepped and draped in sterile fashion. Maximum Sterile Barrier Technique used including cap, mask, sterile gown, sterile gloves, and sterile full body drape. If ultrasound technique used: sterile gel and sterile probe covers. Hand Hygiene performed using proper scrub, soap and water, or alcohol-based hand rub. Site right portable apparatus utilized to confirm patency of the right internal jugular vein Utilizing ultrasonographic guidance successful 21-gauge single puncture into the right internal jugular vein Ultrasound images were recorded and stored. Utilizing blunt dissection Port-A-Cath pocket formed in the upper right chest, connected to 24 cm 9 Sudanese Port-A-Cath line in place to a venous sheath into proper position in the superior vena cava The catheter is sutured in place to the skin and a sterile dressing applied. Perfusion to the extremity distal to the point of catheter insertion was checked and found to be adequate The attending radiologist was present for the entire procedure Estimated blood loss3 cc. Findings: Under fluoroscopy, the tip of the catheter is in good position in the vena cava. Portable chest x-ray, Port-A-Cath placement, as ordered. Impression: Successful ultrasound-guided needle placement right internal jugular vein. Successful IR venous implantation Port-A-Cath. Fluoroscopy 0.9 minute radiation dose 15.88 milligray 1 spot fluoroscopic chest film. AP portable chest completion procedure demonstrates satisfactory position Port-A-Cath tip SVC. May use Port-A-Cath
[2025-03-23] MEDS: LIDOCAINE INJ PF 1% 30 ML VIAL INFL (09:35)
[2025-03-23] MEDS: LIDOCAINE 1% W/EPI 1:100K 20 ML VIAL INFL (09:35)
[2025-03-23] MEDS: SODIUM CHLORIDE 0.9% 500 ML 500 ML 20 ML IV (09:35)
[2025-03-23] MEDS: HEPARIN SOD LOCK SYR 100 UNIT/ML 500 UNIT STFIELD (09:35)
[2025-03-23] MEDS: fentaNYL CIT INJ 50 mCg/ML AMP 2ML 75 MCG IVP (10:18)
--- NOTE | 2025-03-23 10:55 | XR_ITS ---
Examination: AP chest single view Technique one AP upright portable chest single view Date and time: March 23, 2025 1110 hours Comparison March 15, 2025 INDICATIONS: Lung carcinoma diagnosis, difficulty breathing FINDINGS: Total opacification right hemithorax consistent with March larger right pleural effusion compared with March 15, 2025 Port-A-Cath line satisfactory position IMPRESSION: Very large right pleural effusion
--- NOTE | 2025-03-23 11:48 | PC.NURSE ---
INCIDENTAL FINDING OF ENLARGEMENT OF PLEURAL EFFUSION. PER DOCTOR GABE PLEASE HAVE PATIENT DRAINED TODAY. PATIENT SENT TO THE EMERGENCY DEPARTMENT FOR DRAINAGE OF PLEURAL EFFUSION.
== END 2025-03-23 11:57 | disposition home or self-care (01) ==
PROVIDERS: PCP Physician Assistant; Referring Provider Radiology Therapeutic Radiology; Visit Provider Radiology Therapeutic Radiology
DX: J90 Pleural effusion, not elsewhere classified (principal); C78.00 Secondary malignant neoplasm of unspecified lung; Z01.812 Encounter for preprocedural laboratory examination
CPT/HCPCS: 36571; 76937; 77001; C1769; C1788; C1894; J7050

== ENCOUNTER 2025-03-23 12:07 | Emergency (ER) | payer MEDICAID, SELFPAY ==
[2025-03-23 12:10] VITALS: BMI 23.8
--- NOTE | 2025-03-23 12:13 | EKG_ITS ---
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
[2025-03-23 12:24] VITALS: BP 106/74; PULSE 97; RESP 18; TEMP 36.7; O2SAT 93
--- NOTE | 2025-03-23 12:27 | EDRME_ITS ---
Rapid Medical Screening Exam [facility] Arrival date/time: 03/23/25 12:07 49-year-old male with history of cancer currently being treated by Dr. Schwartz presents with concerns for requiring a thoracentesis patient reports he feels like his lung is full of fluid Chief Complaint: Chest Pain Vital signs: Vital Signs Temperature 98.1 F 03/23/25 12:24 Pulse Rate 97 03/23/25 12:24 Respiratory Rate 18 03/23/25 12:24 Blood Pressure 106/74 03/23/25 12:24 Pulse Oximetry (%) 93 L 03/23/25 12:24 Oxygen Delivery Method Room Air 03/23/25 12:24
--- NOTE | 2025-03-23 12:27 | XR_ITS ---
Examination: PA lateral chest 2 views TECHNIQUE: Upright PA lateral chest 2 views Date and time: March 23, 2025 1233 hours INDICATIONS: Diagnosis malignant neoplasm lung, extensive opacity in the right hemithorax on chest film today FINDINGS: Large right pleural effusion Right internal jugular Port-A-Cath tip satisfactory position No pneumothorax Left lung clear IMPRESSION: Large right pleural effusion
[2025-03-23 12:41] LABS: Basophils # (Auto) 0.1 Thou/mm3 (0.0-0.2); Basophils % (Auto) 1 % (0-2.5); Eosinophils # (Auto) 0.2 Thou/mm3 (0.0-0.5); Eosinophils % (Auto) 2 % (0-10); Hematocrit 38.7 % (41.0-53.0); Immature Granulocytes % (Auto) 1 % (0-0); Immature Granulocytes Auto 0.06 Thou/mm3 (0.00-0.00); Lymphocytes % (Auto) 25 % (10-50); Mean Corpuscular HGB Conc 33.6 g/dl (31.0-37.0); Mean Corpuscular Hemoglobin 27.8 pg (25.0-35.0); Mean Corpuscular Volume 83 fL (80-100); Monocytes # (Auto) 0.5 Thou/mm3 (0.0-0.8); Monocytes % (Auto) 7 % (0-12); Neutrophils % (Auto) 65 % (37-80); Nucleated Red Blood Cell % 0 /100 WBC (0); Platelet Count 343 Thou/mm3 (140-440); Red Blood Count 4.68 Miln/mm3 (4.50-5.90); White Blood Count 7.7 Thou/mm3 (3.8-10.6)
[2025-03-23 12:57] LABS: INR 1.2 (0.9-1.3); Partial Thromboplastin Time 29.3 Seconds (22.0-36.0); Prothrombin Time 12.5 Seconds (9.0-12.2)
--- NOTE | 2025-03-23 13:06 | XR_ITS ---
Examination: Ultrasound-guided right thoracentesis Ultrasound right hemithorax Exam date and time: March 23, 2025 1320 hours INDICATIONS: Diagnosis malignant neoplasm lung, very large right pleural effusion on chest x-ray today TECHNIQUE AND FINDINGS: Grayscale sonographic images right hemithorax demonstrated large right pleural effusion Study Informed consent prior. Timeout performed. Skin prepped over the right hemithorax and sterile drape applied, hand hygiene ultrasound sterile technique 1% lidocaine administered for local anesthesia Utilizing ultrasonographic guidance successful 5 Zambian catheter placement into the right hemithorax 3600 cc pleural fluid removed IMPRESSION: Successful ultrasound-guided right thoracentesis, 3600 cc pleural fluid removed Estimated blood loss 0 cc
[2025-03-23 13:12] LABS: Alanine Aminotransferase 10 U/L (10-49); Albumin, Serum 4.1 gm/dL (3.5-5.0); Albumin/Globulin Ratio 1.5 (1.2-2.2); Alkaline Phosphatase 464 U/L (46-116); Anion Gap 9 (7-16); Aspartate Amino Transferase 14 U/L (0-34); BUN/Creatinine Ratio 15 Ratio (12-20); Bilirubin,Total 0.3 mg/dL (0.3-1.2); Blood Urea Nitrogen 9 mg/dL (9-23); Carbon Dioxide 27.3 mMol/L (20.0-31.0); Chloride 102 mMol/L (98-107); Creatinine (Component) 0.6 mg/dL (0.6-1.3); Estimated Creatinine Clearance 132.9 mL/min (>60); Globulin 2.8 gm/dL (2.3-3.5); Glucose 95 mg/dL (74-106); Osmolality,Calculated 274 (275-295); Potassium 3.8 mMol/L (3.4-5.1); Sodium 138 mMol/L (136-145); Total Protein 6.9 gm/dL (5.7-8.2); Troponin I < 0.020 ng/mL (0.0-0.045); eGFR > 60 See Note
--- NOTE | 2025-03-23 13:55 | XR_ITS ---
Examination: PA chest single view TECHNIQUE: Upright chest single view Date and time: March 23, 2025 1515 hours Comparison March 23, 2025 INDICATIONS: Diagnosis malignant neoplasm lung, very large right pleural effusion postthoracentesis today FINDINGS: Marked decrease in right pleural fluid Right lung well expanded Right internal jugular Port-A-Cath tip satisfactory position IMPRESSION: No pneumothorax post right thoracentesis today
[2025-03-23 15:30] VITALS: BP 107/71; PULSE 96; RESP 16; TEMP 36.9; O2SAT 95
--- NOTE | 2025-03-23 15:44 | PD.EDCHEST ---
ED Chest Pain RME/HPI General Chief Complaint: Chest Pain Stated Complaint: SENT FROM IR FOR LARGE PLEURAL EFFUSION Arrival date/time: 03/23/25 12:07 RME / HPI RME / HPI narrative: 03/23/25 12:07 49-year-old male with history of cancer currently being treated by Dr. Schwartz presents with concerns for requiring a thoracentesis patient reports he feels like his lung is full of fluid DR. VANESSA MAIN ED EVALUATION: Related Data Home Medications ?Medication ?Instructions ?Recorded ?Confirmed acetaminophen 650 mg 650 mg PO Q8H PRN pain 03/23/25 03/23/25 tablet,extended release (8 Hour Pain Reliever) Previous Rx's ?Medication ?Instructions ?Recorded ibuprofen 600 mg tablet 600 mg PO Q6H PRN pain #30 tabs 12/26/24 Held on 03/23/25. Instructions: Resume on 03/25/25. tramadol 50 mg tablet 50 mg PO Q6H PRN pain #30 tabs 02/05/25 Allergies Allergy/AdvReac Type Severity Reaction Status Date / Time Penicillins Allergy Intermediate RASH Verified 03/23/25 12:09 Course Orders Category Date Time Status EKG (ED ONLY) *Do not use* NOW Care 03/23/25 12:13 Completed EKG (ED Only) Stat Exams 03/23/25 12:13 Draft US thoracentesis Stat Exams 03/23/25 13:06 Completed XR chest 1V post procedure Stat Exams 03/23/25 13:55 Completed XR chest 2V Stat Exams 03/23/25 12:27 Completed CBC Stat Lab 03/23/25 12:28 Completed Comprehensive Metabolic Panel Stat Lab 03/23/25 12:28 Completed PT [Prothrombin Time with INR] Stat Lab 03/23/25 12:28 Completed PTT [Partial Thromboplastin Time] Stat Lab 03/23/25 12:28 Completed Troponin I Stat Lab 03/23/25 12:28 Completed Lidocaine 1% Pf 30 ml [Xylocaine 1% Pf 30 ml] Med 03/23/25 13:08 Discontinued 30 ml .ROUTE .STK-MED ONE Vital Signs Vital signs: Vital Signs Temperature 98.1 F 03/23/25 12:24 Pulse Rate 97 03/23/25 12:24 Respiratory Rate 18 03/23/25 12:24 Blood Pressure 106/74 03/23/25 12:24 Pulse Oximetry (%) 93 L 03/23/25 12:24 Oxygen Delivery Method Room Air 03/23/25 12:24 Chest Pain MDM Narrative MDM Narrative:: Shahrzad Key am scribing for and in the presence of Dr. Vanessa. Medications / Prescriptions Medication administrations:: Medication Administration History Discontinued Medications Lidocaine HCl (Lidocaine Inj Pf 1% 30 Ml Vial) Confirm Administered Dose 30 ml .ROUTE .STK-MED ONE Stop: 03/23/25 13:09 Discharge Plan Prescriptions/Referrals Prescriptions/Med Rec: No Action tramadol 50 mg tablet 50 mg PO Q6H PRN (Reason: pain) Qty: 30 0RF ibuprofen 600 mg tablet 600 mg PO Q6H PRN (Reason: pain) Qty: 30 0RF acetaminophen [8 Hour Pain Reliever] 650 mg tablet extended release 650 mg PO Q8H PRN (Reason: pain) Patient/Caregiver Discharge Instructions Education Materials: Thoracentesis Dc Print Language: Amharic
--- NOTE | 2025-03-23 16:06 | PD.EDADULT ---
ED General RME/HPI General Chief complaint: Chest Pain Stated complaint: SENT FROM IR FOR LARGE PLEURAL EFFUSION Arrival date/time: 03/23/25 12:07 RME / HPI RME / HPI narrative: 03/23/25 12:07 49-year-old male with history of cancer currently being treated by Dr. Schwartz presents with concerns for requiring a thoracentesis patient reports he feels like his lung is full of fluid DR. VANESSA MAIN ED EVALUATION: 49 year old male presents to the Emergency Department accompanied by his daughter with complaint of chest fluid build up with chest pain. Patient had a port placed today, he has history of cancer of unknown origin diagnosed 1 month ago; a month ago, after persistent pneumonia they found a tumor and is now followed by Dr. Schwartz. He also reports a cough for a month. No shortness of breath now. No fevers or chills. No hemoptysis. No congestion or runny nose. No major weight loss. No abdominal pain. No dysuria. Related Data Home Medications ?Medication ?Instructions ?Recorded ?Confirmed acetaminophen 650 mg 650 mg PO Q8H PRN pain 03/23/25 03/23/25 tablet,extended release (8 Hour Pain Reliever) Previous Rx's ?Medication ?Instructions ?Recorded ibuprofen 600 mg tablet 600 mg PO Q6H PRN pain #30 tabs 12/26/24 Held on 03/23/25. Instructions: Resume on 03/25/25. tramadol 50 mg tablet 50 mg PO Q6H PRN pain #30 tabs 02/05/25 Allergies Allergy/AdvReac Type Severity Reaction Status Date / Time Penicillins Allergy Intermediate RASH Verified 03/23/25 12:09 Review of Systems Review of Systems Systems Reviewed: All systems reviewed, normal except as documented Narrative Review of Systems: GEN: No fever, no chills, no weight loss EYES: No discharge, no visual changes, no pain HEENT: No ear pain, no congestion, no sore throat PULM: No shortness of breath, + cough, no congestion CV: + chest pain (see HPI), no dyspnea on exertion, no palpitations GI: No nausea, no vomiting, no diarrhea, no pain, no constipation : No frequency, no urgency and no dysuria MUSC/SKEL: No joint pain, no back pain SKIN: No rash PSYCH: No hallucinations, no depression HEME/LYMPH: No easy bleeding or bruising tendencies NEURO: No weakness, no headache Past Medical History Past Medical History RESPIRATORY: Positive Pneumonia OTHER HISTORY: Positive Lung Cancer Social History SMOKING STATUS: Never smoker SUBSTANCE USE: does not use ALCOHOL: Never ED Exam Narrative Physical exam: Physical Exam: General: The vital signs were reviewed. The patient is non-toxic, in no apparent distress and appears healthy with a patent airway, no respiratory distress and has no apparent circulatory problems. Head & Scalp: Normocephalic, atraumatic. Face: Appears normal and is without lesions, deformity. Ears: Left external pinna appears normal. Right external pinna appears normal. Eyes: The sclera is anicteric. No obvious photophobia. The Left and Right Orbit/Lid/Conjunctiva appears normal without swelling, discoloration or injection. Nose: The nose is without deformity, discharge or tenderness; Throat: Appears normal. The mucous membranes are pink and moist without exudates, redness or mass seen. The tongue appears normal. Neck: The neck is supple and no apparent mass or adenopathy. Chest: I am seeing this patient postthoracentesis. She got some crackles in the right base but fair breath sounds are heard throughout. Left chest sounds are normal with the chest wall is normal in size and symmetry and has no chest wall tenderness or crepitus. The patient displays normal ventilator effort without retractions, accessory muscle use and has adequate air movement bilaterally with no wheezes and no rales. Cardiovascular: Regular rate and rhythm; No murmurs, rubs, or gallops; Gastrointestinal: The abdomen appears normal. No obvious hernias or mass. The abdomen is soft and benign, non-distended, with no pain, no guarding and no rebound tenderness. Bowel sounds are present and normal sounding. No CVA tenderness. Genitourinary: Back/Spine: Normal Spektor and Extremities/Musculoskeletal/lymphatic: The bilateral upper and lower extremities are warm. There is no evidence of arterial insufficiency. There is no evidence of venous insufficiency/edema. The patient spontaneously moves bilateral upper and lower extremities with no pain and no limitation of movement. There is no apparent, injury or trauma. Skin: The skin is warm, dry and intact. No rashes. No petechia. No purpura. No abnormal bruising. The color is appropriate with no cyanosis. Mental status/Psychiatric: Mental status is appropriate for age. The patient has no apparent delusions, visual hallucinations, no apparent audible hallucinations. The patient has no apparent suicidal thoughts/ideation and no apparent homicidal thoughts/ideation. Neurological: The patient is awake, alert, interactive, cordial, cooperative and is oriented to name and situation. The patient follows commands and answers historical question with no impairment. There is no visual disturbance apparent. The pupils are equal and reactive bilaterally with normal eye movements and no diplopia The bilateral upper and lower extremities have normal strength, normal range of motion and normal functioning. The gait, station and balance appear to be baseline with no acute change Course Quality Measures none Orders Category Date Time Status EKG (ED ONLY) *Do not use* NOW Care 03/23/25 12:13 Completed EKG (ED Only) Stat Exams 03/23/25 12:13 Draft US thoracentesis Stat Exams 03/23/25 13:06 Completed XR chest 1V post procedure Stat Exams 03/23/25 13:55 Completed XR chest 2V Stat Exams 03/23/25 12:27 Completed CBC Stat Lab 03/23/25 12:28 Completed Comprehensive Metabolic Panel Stat Lab 03/23/25 12:28 Completed PT [Prothrombin Time with INR] Stat Lab 03/23/25 12:28 Completed PTT [Partial Thromboplastin Time] Stat Lab 03/23/25 12:28 Completed Troponin I Stat Lab 03/23/25 12:28 Completed Lidocaine 1% Pf 30 ml [Xylocaine 1% Pf 30 ml] Med 03/23/25 13:08 Discontinued 30 ml .ROUTE .STK-MED ONE Vital Signs Vital signs: Vital Signs Temperature 98.1 F 03/23/25 12:24 Pulse Rate 97 03/23/25 12:24 Respiratory Rate 18 03/23/25 12:24 Blood Pressure 106/74 03/23/25 12:24 Pulse Oximetry (%) 93 L 03/23/25 12:24 Oxygen Delivery Method Room Air 03/23/25 12:24 Discharge Plan Plan Patient Disposition: HOME (Self Care) Prescriptions/Referrals Prescriptions/Med Rec: No Action tramadol 50 mg tablet 50 mg PO Q6H PRN (Reason: pain) Qty: 30 0RF ibuprofen 600 mg tablet 600 mg PO Q6H PRN (Reason: pain) Qty: 30 0RF acetaminophen [8 Hour Pain Reliever] 650 mg tablet extended release 650 mg PO Q8H PRN (Reason: pain) Problem List Clinical Impression: Malignant pleural effusion, Status post thoracentesis Impression comment: Patient has presumably lung cancer with a malignant effusion in the primary is uncertain at this time. Patient/Caregiver Discharge Instructions Education Materials: Thoracentesis Dc Additional Instructions: Make an appoint with Dr. Schwartz as we discussed in the next few days to discuss further reaccumulation of the malignant effusion in the right chest. If you are getting worse with fever cough short of breath please return for reevaluation Print Language: Polish Stand Alone Forms: Patient Portal Info Letter [facility] Narrative [facility] hospital course: I, Shahrzad Gregory, am scribing for and in the presence of Dr. Vanessa. Patient is a 49-year-old who comes in with a diagnosis of lung cancer but the primary is unknown and he is developing right-sided chest pain with some difficulty breathing and has had 2 previous thoracentesis prior to today's visit. Today the patient had a port placed in the right chest and he also was found to have a near complete whiteout of his right thorax consistent with a malignant effusion again. Evidently the fluid was drained in IR before coming back to the ER where I saw him where he is feeling better he still has some pleuritic chest pain evidently he had cytology revealed malignancy on previous thoracentesis. CBC white count 7.7 hemoglobin 13 PT/INR is 12.5 and 1.2 PTT is 29.5 electrolytes are normal BUN/creatinine are 9 and 0.6. Alkaline phos is elevated 464 AST ALT and bilirubin are entirely normal. Albumin is 4.1. Chest x-ray previous to thoracentesis today reveals a whiteout of the right lung left side is fairly clear. There is a port in the right chest. Patient thoracentesis report revealed 3600 cc of fluid drained from the right chest and a post thoracentesis chest x-ray reveals some great improvement of the effusion there is still some abnormality in the right lower lung field presumably secondary to the mass that there. Patient feels good he is hungry wants to go home I contacted Dr. Schwartz his oncologist discussed the plans for his recurring malignant effusion and he talked about placing some catheter with IR and asked the patient to call the office and they will schedule appointment to arrange this. Family understand this the daughter who was translating communicated this information to the patient. Procedures done or offered: Thoracentesis was done. Clinical Information Provided by patient and family other: Daughter Medical Records Reviewed [facility] Meds/Rx Considered, not Ordered None Describe details: Pain medicines but patient seems to be comfortable enough Labs/Rad/Tests considered, not Ordered None Describe details: No further testing was done today as the medical workup for his malignancy and the primary is being done with Dr. Schwartz. Chronic Illness/Social Conditions which may negatively complicate care or outcome(s)-explain: Cancer EKG Interpretation EKG #1: Date/time of EK03/23/25 1223 pm EKG interpretation: Interpreted by me: sinus rhythm, rate 96, no STEMI Lab Interpretation Labs: see narrative above Imaging Imaging interpretation: see narrative above Radiology reports / interpretation(s): Procedure(s): XR chest 1V post procedure Accession Number(s): [id number] cc: Kenneth Baker PA-C; Zachary Garcia MD~ Examination: PA chest single view TECHNIQUE: Upright chest single view Date and time: March 23, 2025 1515 hours Comparison March 23, 2025 INDICATIONS: Diagnosis malignant neoplasm lung, very large right pleural effusion postthoracentesis today FINDINGS: Marked decrease in right pleural fluid Right lung well expanded Right internal jugular Port-A-Cath tip satisfactory position IMPRESSION: No pneumothorax post right thoracentesis today Dictated By: Zachary Garcia MD Procedure(s): US thoracentesis Accession Number(s): [id number] cc: Kenneth Valderrama NP, NP; Kenneth Baker PA-C; Zachary Garcia MD~ Examination: Ultrasound-guided right thoracentesis Ultrasound right hemithorax Exam date and time: March 23, 2025 1320 hours INDICATIONS: Diagnosis malignant neoplasm lung, very large right pleural effusion on chest x-ray today TECHNIQUE AND FINDINGS: Grayscale sonographic images right hemithorax demonstrated large right pleural effusion Study Informed consent prior. Timeout performed. Skin prepped over the right hemithorax and sterile drape applied, hand hygiene ultrasound sterile technique 1% lidocaine administered for local anesthesia Utilizing ultrasonographic guidance successful 5 Ivorian catheter placement into the right hemithorax 3600 cc pleural fluid removed IMPRESSION: Successful ultrasound-guided right thoracentesis, 3600 cc pleural fluid removed Estimated blood loss 0 cc Dictated By: Zachary Garcia MD Procedure(s): XR chest 2V Accession Number(s): [id number] cc: Jannie (BARB),Kenneth DAY; Zachary Garcia MD~ Examination: PA lateral chest 2 views TECHNIQUE: Upright PA lateral chest 2 views Date and time: March 23, 2025 1233 hours INDICATIONS: Diagnosis malignant neoplasm lung, extensive opacity in the right hemithorax on chest film today FINDINGS: Large right pleural effusion Right internal jugular Port-A-Cath tip satisfactory position No pneumothorax Left lung clear IMPRESSION: Large right pleural effusion Dictated By: Zachary Garcia MD Medication Administration(s) Medication Administration History Discontinued Medications Lidocaine HCl (Lidocaine Inj Pf 1% 30 Ml Vial) Confirm Administered Dose 30 ml .ROUTE .GaBoom-MED ONE Stop: 03/23/25 13:09 Last Admin: 03/23/25 17:16 Dose: Not Given Documented By: Non-Admin Reason: Other, see note Consultations/Discussions re: Management Consult #1: Date/time: 03/23/25 5:09 pm Physician, specialty, service, details: Dr. Schwartz was called and had mentioned above it was his oncologist. Diagnosis Differential diagnosis: Malignancy infection Differential dx and/or dx ruled out: Malignancy infection can all cause a pleural effusion but evidently the previous workup reveals malignant effusion. Most likely dx, and/or detailed dx discussion: Neoplasm unknown primary. Dispositon Disposition: Discharge Home Dispo comments (follow instructions): Long discussion with the daughter and the patient they want to go home to follow-up with Dr. Schwartz as an outpatient they know to call and get an appointment and talk about a catheter in the thorax for permanent drainage of the recurring thoracentesis. They were advised to return if getting worse in any way
--- NOTE | 2025-03-23 17:16 | PC.NURSE ---
Lidocaine given in IR during paracentesis.
--- NOTE | 2025-03-23 17:22 | PC.NURSE ---
Lidocaine give during IR procedure pleuracentesis.
== END 2025-03-23 17:23 | disposition home or self-care (01) ==
PROVIDERS: Nurse Practitioner Primary Care; Emergency Provider Emergency Medicine; PCP Physician Assistant
DX: C34.90 Malignant neoplasm of unspecified part of unspecified bronchus or lung (principal); J91.0 Malignant pleural effusion
CPT/HCPCS: 32555; 36415; 71046; 80053; 84484; 85025; 85610; 85730; 93005; 99284; C1729

== ENCOUNTER 2025-03-24 09:52 | Outpatient (RCR) | payer MEDICAID, SELFPAY ==
--- NOTE | 2025-03-10 10:53 | CTCFLWUP_ITS ---
[facility] [address] [place], [place] [address] FOLLOW-UP NOTE Date: 03/10/2025 MR#: [id number] Name: LYN ROJAS : Dx: Secondary malignancy of unspecified lung Identification. Patient with malignant pleural effusion noted during hospitalization a month ago here for follow-up. Please see consult of February 03, 2025. Patient admitted with shortness of breath where CT 02/02/2025 revealed large right pleural effusion. Chest CT 02/02/2025 revealed large right pleural effusion right lung pneumonia with significant right lung atelectasis and noncalcified likely metastatic pulmonary nodules. There were also widespread osteoblastic mets disease. There were no focal liver or splenic lesions no pancreatic or adrenal mass no abdominal or pelvic lymphadenopathy. Thoracentesis February 03, 2025 removed 2850 cc from right lung with pleural fluid cytology revealing malignant carcinoma. According to comment by pathologist of [place] immunohistochemistry results suggest primary upper GI pancreatic biliary primary. Patient was discharged before GI was able to see patient but CA 19?9 was elevated at 173 along with alk phos at 339. PSA 0.54 CEA 1.0 As I see patient today he looks comfortable with diminished nevertheless present lung sounds on the right as well as left. No subcutaneous nodules or lymphadenopathy felt. Patient has not had any significant weight loss chills fever or pain. A#1. 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 Pathologist feels that no more tests can be done on the present sample. A#2. No obvious lesions noted in the abdominal pelvic CT scan except mild prostamegaly. A$3. PSA is low but ultrasound will be ordered as recommended. A#4. PET scan for staging. A#5. Port placement for likely need for IV chemotherapy. A#6. Referral to medical oncologist Dr. Cody. A#7. See patient back in 1 month. Cc: Kenneth Baker PA-C [facility] Electronically signed by: Bari Schwartz M.D. 03/10/2025 10:51 AM
== END 2025-04-03 23:59 | disposition home or self-care (01) ==
LOC: SCTC 09:52
PROVIDERS: PCP Physician Assistant; Referring Provider Physician Assistant; Visit Provider Radiology Therapeutic Radiology
DX: C80.1 Malignant (primary) neoplasm, unspecified (principal); C79.51 Secondary malignant neoplasm of bone; J91.0 Malignant pleural effusion
CPT/HCPCS: 99213; G0463

== ENCOUNTER → 2025-03-25 | Outpatient (CLI) | payer MEDICAID, SELFPAY ==
--- NOTE | 2025-03-25 10:00 | XR_ITS ---
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
== END | disposition home or self-care (01) ==
PROVIDERS: PCP Physician Assistant; Referring Provider Radiology Therapeutic Radiology; Visit Provider Radiology Therapeutic Radiology
DX: C78.00 Secondary malignant neoplasm of unspecified lung (principal)
CPT/HCPCS: 76872

== ENCOUNTER → 2025-04-02 | Outpatient (CLI) | payer MEDICAID, SELFPAY ==
--- NOTE | 2025-04-02 09:23 | XR_ITS ---
Examination: IR staple removal Port-A-Cath incision site Date and time: April 02, 2025 0923 hours INDICATIONS: IR venous implantation Port-A-Cath February 21, 2025, patient returns for removal of jose luis TECHNIQUE AND FINDINGS: Informed consent provided. Timeout performed. Skin prepped at the Port-A-Cath incision site and sterile drape applied hand hygiene Successful removal of the jose luis at the incision site Estimated blood loss 0 cc IMPRESSION: Successful IR staple removal at the Port-A-Cath incision site
== END | disposition home or self-care (01) ==
PROVIDERS: PCP Physician Assistant; Referring Provider Radiology Therapeutic Radiology; Visit Provider Radiology Therapeutic Radiology
DX: Z48.02 Encounter for removal of sutures (principal)

== ENCOUNTER → 2025-04-07 | Outpatient (CLI) | payer MEDICAID, SELFPAY ==
--- NOTE | 2025-04-07 | XR_ITS ---
Examination: PA chest single view TECHNIQUE: Upright PA chest single view Date and time: April 07, 2025 1345 hours Comparison March 23, 2025 FINDINGS: Extensive pleural parenchymal disease right hemithorax, no definite pneumothorax Small fluid level in the lower lung zone in this patient with a known diagnosis of lung cancer Normal heart size Left lung clear IMPRESSION: Right lung appears adequately expanded on this postthoracentesis chest film
--- NOTE | 2025-04-07 11:00 | XR_ITS ---
Examination: Ultrasound guided right thoracentesis Ultrasound right hemithorax ultrasound left hemithorax Date and time: April 07, 2025 1204 hours INDICATIONS: Diagnosis malignant neoplasm lung, recurrent large right pleural effusions shortness of breath this week TECHNIQUE AND FINDINGS: Sonographic images right and left hemithoraces demonstrate large right pleural effusion Informed consent provided. Timeout performed. Skin prepped over the right hemithorax and sterile drape applied hand hygiene ultrasound sterile technique 1% lidocaine administered for local anesthesia Utilizing ultrasonographic guidance 5 Grenadian catheter placed in the right pleural space 1700 cc sanguinous fluid removed Estimated blood loss 0 cc IMPRESSION: Successful ultrasound-guided right thoracentesis, 1700 cc pleural fluid removed
== END | disposition home or self-care (01) ==
LOC: SDIM 10:31 → SIRX 10:33
PROVIDERS: PCP Family Medicine; Referring Provider Radiology Therapeutic Radiology; Visit Provider Radiology Therapeutic Radiology
DX: C78.00 Secondary malignant neoplasm of unspecified lung (principal)
CPT/HCPCS: 32555; C1729

== ENCOUNTER → 2025-04-19 | Outpatient (CLI) | payer MEDICAID, SELFPAY ==
--- NOTE | 2025-04-19 13:01 | XR_ITS ---
Examination: Ultrasound right hemithorax Ultrasound left hemithorax Date and time: April 19, 2025 1306 hours INDICATIONS: Diagnosis widespread osteoblastic metastatic disease, history recurrent large right malignant pleural effusion, preop Pleurx catheter placement Technique and findings: Moderate right pleural fluid No left pleural fluid IMPRESSION: Moderate right pleural fluid
== END | disposition home or self-care (01) ==
PROVIDERS: PCP Physician Assistant; Referring Provider Radiology Therapeutic Radiology; Visit Provider Radiology Therapeutic Radiology
DX: C78.00 Secondary malignant neoplasm of unspecified lung (principal)
CPT/HCPCS: 76999

== ENCOUNTER 2025-04-20 06:39 | Outpatient (CLI) | payer MEDICAID, SELFPAY ==
[2025-04-16 14:54] VITALS: BMI 19.2
[2025-04-20] VITALS (12 sets, daily range): BP systolic 102–124; BP diastolic 68–83; PULSE 94–109; RESP 10–24; TEMP 36.8–36.9; O2SAT 93–100
[2025-04-20 08:37] LABS: Basophils # (Auto) 0.1 Thou/mm3 (0.0-0.2); Basophils % (Auto) 1 % (0-2.5); Eosinophils # (Auto) 0.2 Thou/mm3 (0.0-0.5); Eosinophils % (Auto) 2 % (0-10); Hematocrit 29.6 % (41.0-53.0); Hemoglobin 10.1 g/dL (13.5-16.0); Immature Granulocytes % (Auto) 5 % (0-0); Immature Granulocytes Auto 0.39 Thou/mm3 (0.00-0.00); Lymphocytes # (Auto) 1.8 Thou/mm3 (1.0-4.8); Lymphocytes % (Auto) 24 % (10-50); Mean Corpuscular HGB Conc 34.1 g/dl (31.0-37.0); Mean Corpuscular Hemoglobin 27.4 pg (25.0-35.0); Mean Corpuscular Volume 80 fL (80-100); Monocytes # (Auto) 0.5 Thou/mm3 (0.0-0.8); Monocytes % (Auto) 7 % (0-12); Neutrophils # (Auto) 4.5 Thou/mm3 (1.8-7.7); Neutrophils % (Auto) 61 % (37-80); Nucleated Red Blood Cell # 0.05 Thou/mm3 (0.00-0.00); Nucleated Red Blood Cell % 1 /100 WBC (0); Platelet Count 134 Thou/mm3 (140-440); RDW Standard Deviation 43.5 fL (35.1-43.9); Red Blood Count 3.68 Miln/mm3 (4.50-5.90); White Blood Count 7.4 Thou/mm3 (3.8-10.6)
--- NOTE | 2025-04-20 08:56 | XR_ITS ---
Examination: Ultrasound-guided needle placement right hemithorax Date and Time: April 20, 2025 1022 hours. Technique: Informed consent provided. Timeout performed. Skin prepped over the right chest and sterile drape applied. Maximum sterile barrier technique utilized, hand hygiene, sterile ultrasound technique 1% lidocaine administered for local anesthesia. Ultrasound utilized confirmation right pleural fluid Utilizing ultrasonographic guidance successful ultrasound-guided needle placement into the pleural fluid right hemithorax Ultrasound images recorded and stored. Estimated blood loss 0 cc The patient tolerated the procedure well, in satisfactory and stable condition a completion of the procedure Impression: Successful ultrasound-guided needle placement right pleural fluid
[2025-04-20 08:58] LABS: Blood Urea Nitrogen 7 mg/dL (9-23); Creatinine (Component) 0.6 mg/dL (0.6-1.3); Estimated Creatinine Clearance 122.8 mL/min (>60); eGFR > 60 See Note
--- NOTE | 2025-04-20 09:00 | XR_ITS ---
Examination: Right hemithorax Pleurx catheter administration Ultrasound-guided needle access right hemithorax Fluoroscopy AP chest single view Date and time of procedure: April 20, 2025 0906 hours INDICATIONS: Lung carcinoma diagnosis with large recurrent malignant right pleural effusions Informed consent provided. A timeout was completed verifying correct patient, procedure, site and positioning. Technique: Ultrasound utilized to determine safe position for needle access right pleural fluid The patient's site was prepped and draped in sterile fashion Maximal sterile barrier technique utilized, including hand hygiene Local anesthesia was obtained with 1% lidocaine. Low dose protocols were performed. One or more of the following dose reduction techniques were used; automated exposure control, adjustment of the mA and/or KV according to patient size, use of iterative reconstruction technique. Utilizing ultrasonographic guidance 18-gauge needle placement in the right pleural fluid 0.35 wire guide is introduced into the needle into the right hemithorax Subcutaneous tunnel formed in the chest with passage of the Pleurx catheter in the subcutaneous tunnel through a venous sheath into the right hemithorax over the wire guide Patient appears in stable condition during this procedure. At completion of the procedure, the patient is in satisfactory condition. Estimated blood loss 2 cc Impression: Successful Pleurx catheter placement in the right hemithorax Fluoroscopy 0.3 minute radiation dose 3.08 milligray 1 spot fluoroscopic chest film
[2025-04-20 09:16] LABS: INR 1.3 (0.9-1.3); Partial Thromboplastin Time 32.3 Seconds (22.0-36.0); Prothrombin Time 13.6 Seconds (9.0-12.2)
[2025-04-20] MEDS: fentaNYL CIT INJ 50 mCg/ML AMP 2ML 100 MCG IVP (10:55)
[2025-04-20] MEDS: SODIUM CHLORIDE 0.9% 500 ML 500 ML 20 ML IV (10:55)
[2025-04-20] MEDS: LIDOCAINE INJ PF 1% 30 ML VIAL 10 ML INFL (10:56)
--- NOTE | 2025-04-20 12:30 | PC.NURSE ---
Educated patient and family member on how to drain fluid using the pleurx drain system. Gave them phone number to call us if they have any questions.
--- NOTE | 2025-04-20 14:39 | PC.NURSE ---
1120 patient is awake, alert, breathing unlabored, s/p pleur x drain catheter placement, dressing to right upper chest dry with no bleeding, report received from Vaishali VALDEZ, patient to recover for 1 hour 1230 patient is awake, alert, breathing unlabored, dressing dry with no bleeding, patient able to tolerate sandwich and drink with no nausea or vomiting, meets discharge criteria, patient is dressed in patient's own clothe, ready for discharge, discharge instructions will be given by senior facilities manager Kassidy VALDEZ who will educate patient how to drain pleur x drain. patient will go home with 4 drainage bottles and will follow up at doctor's office to order more supplies. Patient states he has appointment this 04/22/2025 with his doctor.
== END 2025-04-20 12:51 | disposition home or self-care (01) ==
PROVIDERS: Radiology Diagnostic Radiology; PCP Physician Assistant; Referring Provider Radiology Therapeutic Radiology; Visit Provider Radiology Therapeutic Radiology
DX: C78.00 Secondary malignant neoplasm of unspecified lung (principal)
CPT/HCPCS: 32550; 36415; 75989; 76998; 82565; 84520; 85025; 85610; 85730; A4300; A7048; J3010; J3490; J7040

== ENCOUNTER 2025-04-20 17:45 | Emergency (ER) | payer MEDICAID, SELFPAY ==
[2025-04-20 18:12] VITALS: BP 95/63; PULSE 108; RESP 18; TEMP 36.8; O2SAT 96
--- NOTE | 2025-04-20 18:57 | XR_ITS ---
Examination: PA lateral chest 2 views Technique upright PA and lateral chest 2 views Date and time: 12/21/2024 1939 hours Comparison April 07, 2025 INDICATIONS: Bleeding from surgical site today FINDINGS: Right Pleurx catheter in good position Pleural-parenchymal disease right hemithorax Right internal jugular Port-A-Cath tip satisfactory position Suspicious for mild pneumonia left base IMPRESSION: Right Pleurx catheter in good position
--- NOTE | 2025-04-20 18:58 | EDNOTE_ITS ---
ED Wound/Laceration-RME/HPI General Chief Complaint: General Adult/Misc Complain Stated Complaint: SURGERY THIS AM; BLEEDING FROM SURG. SITE Arrival date/time: 04/20/25 17:45 RME / HPI RME / HPI narrative: DR. DEBBIE AMEZCUA ED EVALUATION: 49 y/o male with Hx of lung CA presents to ED c/o pain and drainage s/p pleurx catheter placement to the right thorax x 1 month ago. He was seen and discharged from [facility] at noon today. Patient has not yet began chemotherapy. PCP is Dr. Baker. Patient was initially seen by Dr. Schwartz, who referred him out for the Pleurx catheter, and will continue with chemotherapy and cancer treatment with another provider. Patient also states that he will be shown how to drain catheter on his own. Denies history of smoking and recreational drug use. Also denies history of HTN, DM, and Cholesterolemia. He reports an allergy to Penicillin that causes hives. He was prescribed Tramadol with no relief. No other concerns or complaints expressed at this time. Related Data Home Medications ?Medication ?Instructions ?Recorded ?Confirmed acetaminophen 650 mg 650 mg PO Q8H PRN pain 03/2304/20/25 tablet,extended release (8 Hour Pain Reliever) Previous Rx's ?Medication ?Instructions ?Recorded ibuprofen 600 mg tablet 600 mg PO Q6H PRN pain #30 t abs 12/26/24 tramadol 50 mg tablet 50 mg PO Q6H PRN pain #30 ta bs 02/05/25 Allergies Allergy/AdvReac Type Severity Reaction Status Date / Time Penicillins Allergy Intermediate RASH Verified 04/20/25 17:47 Review of Systems Review of Systems Systems Reviewed: All systems reviewed, normal except as documented Past Medical History Past Medical History RESPIRATORY: Positive Pneumonia MUSCULOSKELETAL: Positive Musculoskeletal Disorders PSYCHO/SOCIAL: Positive Depression OTHER HISTORY: Positive Cancer and Lung Cancer ED Exam Narrative Physical exam: GEN. APPEARANCE: The patient is alert awake oriented X-3 in no distress, lying down comfortably, does not look ill/toxic. Patient has good eye contact. Patient is cooperative. VITALS: All vitals were reviewed and the pulse ox is % on room air which is normal according to my interpretation. HEENT: Normocephalic, atraumatic. Pupils are equal and reactive. Oral mucosa is moist. Patent Nares NECK: Supple, nontender, no thyromegaly, no meningismus, no JVD CHEST: Symmetrical, atraumatic, and with equal expansion , Nontender on palpation no deformity and no crepitus. CARDIOVASCULAR: Heart regular rhythm no murmur or gallop rub or extra beats. LUNGS: Clear to auscultation bilaterally with symmetrical chest rise. No laboring tachypnea or wheezing. No intercostal subcostal retraction. No rales and no rhonchi. ABDOMEN: Soft, flat, nontender to palpation, no guarding or rebound tenderness. There are no abnormal masses palpated. Active and normal bowel sounds. EXTREMITIES: Nontender. No edema. No cyanosis. Patient is able to move all 4 extremities well, with full ROM and good CSM. SKIN: Warm, no jaundice or rashes noted. Sponge with drainage to the right thorax, No active bleed, No discharge from catheter, has incision just superior to catheter with discharge, 2 wounds to throax tamponaded on their own. NEURO: Patient is LEDBETTER x 4, Cranial nerves II through XII grossly intact. There is no focal neurologic deficits noted. GCS is 15, PNS and [employer] appear grossly intact. PSYCHIATRIC: Patient is in normal mood and affect. Course Course Course Narrative: CXR is ordered for determining the etiology effusion post pleurx drain. Quality Measures none Orders Category Date Time Status CXR2 [XR chest 2V] Stat Exams 04/20/25 18:57 Completed CBC Stat Lab 04/20/25 19:15 Completed INR [Prothrombin Time with INR] Stat Lab 04/20/25 19:15 Completed Type and Screen Stat Lab 04/20/25 19:15 Completed Reevaluation(s) Reevaluation #1: Hemoglobin s stable, previously 10.1 and now 9.8. CXR shows right pleural effusion. Compared to old CXR improvement noted with catheter, serous, not blood. Will apply skin glue to incision superior to catheter. Time: 22:27 Reevaluation #2: Skin glue applied to incision superior to pleurx catheter. Time: 22:33 Vital Signs Vital signs: Vital Signs Temperature 98.2 F 04/20/25 18:12 Pulse Rate 108 H 04/20/25 18:12 Respiratory Rate 18 04/20/25 18:12 Blood Pressure 95/63 04/20/25 18:12 Pulse Oximetry (%) 96 04/20/25 18:12 Oxygen Delivery Method Room Air 04/20/25 18:12 Wound / Laceration MDM Narrative MDM Narrative:: Scribe Attestation: I, Kristin Garcia, am scribing for and in the presence of Dr. Perdue. Provider Notation: Although this document has been carefully reviewed, there may still be some phonetic and other typographical errors.? These errors are purely grammatical due to imperfections in the software program and should not be construed in any way to? compromise the substance of the patient's medical care during this visit. Patient data External records reviewed:: [facility] previous records (Reviewed prior ED records from 03/23/25. Patient was seen for Malignant pleural effusion.) Clinical information provided by:: patient Social determinants that could affect healthcare access:: mental health (Depression) Patient has the following chronic illnesses:: Depression, Lung Cancer How is presenting disease/condition affected by chronic disease/condition?: exacerbated by Evaluation data The following diagnostics were reviewed and interpreted by me:: lab results and radiology exam(s) Lab and/or radiology exams considered but not ordered:: None Interpretation Summary: RADIOLOGY Chest X-Ray: FINDINGS: Right Pleurx catheter in good position Pleural-parenchymal disease right hemithorax Right internal jugular Port-A-Cath tip satisfactory position Suspicious for mild pneumonia left base IMPRESSION: Right Pleurx catheter in good position Medications / Prescriptions Medications or Prescriptions considered but not ordered:: None Medication administrations:: See above if any Consultations Consultation(s) initiated? (list below): No Diagnosis Wound Differential Diagnosis: laceration, abscess, abrasion and other (Pleurisy, Pneumothorax, Pleural effusion) Most likely diagnosis given after review of the tests above:: Pleural effusion, Bleeding from wound Admission Indicated Admission indicated?: not indicated Explain why admission is indicated or not indicated:: Patient does not meet admission criteria Admission Request Was there a request for admission?: No Disposition Plan Disposition Plan: Discharge Discharge Attestation Discharge Attestation: The patient and all family members were given an opportunity to ask questions and understood the discharge instructions. Discharge instructions specifically effects, indications for sooner follow up or return to the emergency department, and the expected course of current diagnosis. Patient condition: Stable Discharge Plan Plan Patient Disposition: HOME (Self Care) Prescriptions/Referrals Prescriptions/Med Rec: No Action tramadol 50 mg tablet 50 mg PO Q6H PRN (Reason: pain) Qty: 30 0RF ibuprofen 600 mg tablet 600 mg PO Q6H PRN (Reason: pain) Qty: 30 0RF acetaminophen [8 Hour Pain Reliever] 650 mg tablet extended release 650 mg PO Q8H PRN (Reason: pain) Referrals: Kenneth Baker PA-C [Primary Care Provider] - In 1 week Problem List Clinical Impression: Pleural effusion, Bleeding from wound Impression comment: Hanson radiografia de esta tarde esta mejor que la anterior. Noelle examenes de kera estan estables. Por favor ir a tootie con hanson medico de cabecera en la manana para discutir el drenaje de hanson cateter Patient/Caregiver Discharge Instructions Education Materials: Pleural Effusion Print Language: Guatemalan Stand Alone Forms: Jerica Award Info., Patient Portal Info Letter
[2025-04-20 19:28] LABS: Basophils # (Auto) 0.1 Thou/mm3 (0.0-0.2); Basophils % (Auto) 1 % (0-2.5); Eosinophils # (Auto) 0.1 Thou/mm3 (0.0-0.5); Hematocrit 28.4 % (41.0-53.0); Hemoglobin 9.8 g/dL (13.5-16.0); Mean Corpuscular HGB Conc 34.5 g/dl (31.0-37.0); Mean Corpuscular Hemoglobin 27.8 pg (25.0-35.0); Mean Corpuscular Volume 81 fL (80-100); Monocytes # (Auto) 0.5 Thou/mm3 (0.0-0.8); Monocytes % (Auto) 7 % (0-12); Nucleated Red Blood Cell % 1 /100 WBC (0); Platelet Count 125 Thou/mm3 (140-440); RDW Standard Deviation 44.1 fL (35.1-43.9); Red Blood Count 3.52 Miln/mm3 (4.50-5.90); White Blood Count 7.7 Thou/mm3 (3.8-10.6)
[2025-04-20 19:47] LABS: INR 1.3 (0.9-1.3)
[2025-04-20 19:49] LABS: Lymphocytes % (Auto) 27 % (10-50); Neutrophils % (Auto) 59 % (37-80)
[2025-04-20 19:50] LABS: Eosinophils % (Auto) 2 % (0-10); Lymphocytes # (Auto) 1.9 Thou/mm3 (1.0-4.8); Neutrophils # (Auto) 4.2 Thou/mm3 (1.8-7.7)
[2025-04-20 19:51] LABS: Immature Granulocytes % (Auto) 5 % (0-0); Immature Granulocytes Auto 0.35 Thou/mm3 (0.00-0.00); Nucleated Red Blood Cell # 0.04 Thou/mm3 (0.00-0.00)
[2025-04-20] MEDS: HYDROcodone/APAP 5/325 TABLET 1 TAB PO (23:35)
== END 2025-04-20 23:47 | disposition home or self-care (01) ==
PROVIDERS: Emergency Provider Emergency Medicine; PCP Physician Assistant
DX: J90 Pleural effusion, not elsewhere classified (principal); L76.22 Postprocedural hemorrhage of skin and subcutaneous tissue following other procedure; Y84.8 Other medical procedures as the cause of abnormal reaction of the patient, or of later complication, without mention of misadventure at the time of the procedure
CPT/HCPCS: 36415; 71046; 85025; 85610; 86850; 86900; 86901; 99283; A9270

== ENCOUNTER 2025-04-22 11:59 | Observation (INO) | payer MEDICAID, SELFPAY ==
[2025-04-22 12:11] VITALS: BP 96/65; PULSE 112; RESP 18; TEMP 36.8; O2SAT 96; BMI 25.2
--- NOTE | 2025-04-22 12:23 | XR_ITS ---
Examination: CTA chest with intravenous contrast 2-D reconstructions 3-D reconstructions, vascular Date and time of exam: April 22, 2025 1455 hours INDICATIONS: History malignant pleural effusions, history bleeding at the Pleurx catheter site weeks CTDI: vol (mGy) 15.8 DLP: (mGycm) 399 Technique: Multiple axial sections of the thorax have been obtained. 3 mm slice thickness, from below the hemidiaphragms to above the apices of the lungs. Mediastinal and lung density settings have been obtained. 2-D sagittal and coronal reconstructions. 3-D angiographic renderings, 3-D volume renderings, 3D post processing, vascular maximum intensity projections obtained. Contrast administered is 100 cc Isovue-370. Low dose protocols were performed. One or more of the following dose reduction techniques were used; automated exposure control, adjustment of the mA and/or KV according to patient size, use of iterative reconstruction technique. Findings: Right Pleurx catheter satisfactory position Moderate right pleural fluid Mild left pleural fluid Normal heart size Pneumonia right base No visualized liver or splenic lesion Contracted gallbladder No hydronephrosis IMPRESSION: Right Pleurx catheter satisfactory position
--- NOTE | 2025-04-22 12:26 | PD.EDWOUND ---
ED Wound/Laceration-RME/HPI General Chief Complaint: Wound Recheck / Suture Removal Stated Complaint: Had surgery on Saturday right lung Time Seen by Provider: 04/22/25 12:12 Arrival date/time: 04/22/25 11:59 RME / HPI RME / HPI narrative: 49-year-old male with history of lung cancer pending chemotherapy presents for draining wound at right Pleurx catheter. Patient reports placement of Pleurx catheter x 1 month ago. He states that he has had multiple episodes of persistent bleeding from catheter site over the last week. He was seen by his oncologist yesterday and was advised to present to the ED if his bleeding should persist to try to find a source of the wound. He endorses right chest wall pain, shortness of breath, weakness. He denies fever, chills, cough, nausea, vomiting. Patient denies recent antibiotic use and recent travel. No known sick contacts. Related Data Home Medications ?Medication ?Instructions ?Recorded ?Confirmed acetaminophen 650 mg 650 mg PO Q8H PRN pain 03/23/25 04/22/25 tablet,extended release (8 Hour Pain Reliever) Previous Rx's ?Medication ?Instructions ?Recorded tramadol 50 mg tablet 50 mg PO Q6H PRN pain #30 tabs 02/05/25 Allergies Allergy/AdvReac Type Severity Reaction Status Date / Time Penicillins Allergy Intermediate RASH Verified 04/22/25 12:07 Course Quality Measures none Orders Category Date Time Status CT Screening NOW Care 04/22/25 12:24 Completed Insert IV NOW Care 04/22/25 12:[address] angio chest Stat Exams 04/22/25 12:23 Completed IR chest tube insertion Stat Exams 04/22/25 Ordered BMP [Basic Metabolic Panel] Stat Lab 04/22/25 12:40 Completed CBC Stat Lab 04/22/25 12:40 Completed PT [Prothrombin Time with INR] Stat Lab 04/22/25 12:40 Completed PTT [Partial Thromboplastin Time] Stat Lab 04/22/25 12:40 Completed Packed Cells [Red Blood Cells] Stat Lab 04/22/25 16:54 Completed Type and Screen Stat Lab 04/22/25 16:54 Completed Azithromycin Inj [Zithromax Inj] 500 mg Med 04/22/25 17:41 Discontinued Sodium Chloride 0.9% 250 ml [Ns] 250 ml IV X1 HYDROcodone*/APAP 7.5/325 [Armour 7.5/325] Med 04/22/25 12:26 Discontinued 1 tab PO X1 ONE cefTRIAXone/D5w 1gm IV premix [Rocephin/D5w 1gm IV Med 04/22/25 17:40 Discontinued premix] 1 gm in 50 ml IV X1 Vital Signs Vital signs: Vital Signs Temperature 98.2 F 04/22/25 12:11 Pulse Rate 112 H 04/22/25 12:11 Respiratory Rate 18 04/22/25 12:11 Blood Pressure 96/65 04/22/25 12:11 Pulse Oximetry (%) 96 04/22/25 12:11 Oxygen Delivery Method Room Air 04/22/25 12:11 Wound / Laceration MDM Narrative MDM Narrative:: Patient presented for evaluation of persistent bleeding from Pleurx catheter site. CTA chest showed appropriate catheter placement with no gross vascular injuries noted. Patient's labs today were significant for anemia requiring blood transfusion. Ultimately the patient was admitted to the hospitalist team with plan for IR removal of catheter tomorrow. Patient stable at time of admission. Patient data External records reviewed:: [facility] previous records Clinical information provided by:: patient Social determinants that could affect healthcare access:: none Patient has the following chronic illnesses:: lung cancer. How is presenting disease/condition affected by chronic disease/condition?: caused by Evaluation data The following diagnostics were reviewed and interpreted by me:: lab results and radiology exam(s) Lab and/or radiology exams considered but not ordered:: CTA chest ordered. Labs ordered. Interpretation Summary: CBC significant for anemia. No leukocytosis. Hyperglycemia on metabolic panel. No evidence of endorgan damage. CTA chest: Findings: Right Pleurx catheter satisfactory position Moderate right pleural fluid Mild left pleural fluid Normal heart size Pneumonia right base No visualized liver or splenic lesion Contracted gallbladder No hydronephrosis IMPRESSION: Right Pleurx catheter satisfactory position Medications / Prescriptions Medications or Prescriptions considered but not ordered:: RX given. Medication administrations:: Medication Administration History Discontinued Medications Acetaminophen (Acetaminophen 325 Mg Tablet) 650 mg PO Q6H PRN PRN Reason: PAIN 1-3 OR FEVER > 100.4 Stop: 05/22/25 18:22 Last Admin: 04/24/25 20:09 Dose: 650 mg Documented By: Admin: 04/23/25 20:08 Dose: 650 mg Documented By: MONICA Hydrocodone Bitart/Acetaminophen (Hydrocodone/Apap 7.5/325 Tablet) 1 tab PO X1 ONE Stop: 04/22/25 12:27 Last Admin: 04/22/25 13:20 Dose: 1 tab Documented By: Ceftriaxone Sodium/Dextrose (Rocephin/D5w 1gm Iv Premix) 1 gm in 50 mls @ 100 mls/hr IV X1 ONE Stop: 04/22/25 18:09 Last Admin: 04/22/25 20:11 Dose: 100 mls/hr Documented By: LOW Azithromycin 500 mg/ Sodium (Chloride) 250 mls @ 250 mls/hr IV X1 ONE Stop: 04/22/25 18:40 Last Admin: 04/22/25 21:00 Dose: 250 mls/hr Documented By: LOW Ondansetron HCl (Ondansetron Inj 2 Mg/Ml Inj 2 Ml) 4 mg IVP Q6H PRN; Protocol PRN Reason: NAUSEA OR VOMITING Stop: 05/22/25 18:22 Tramadol HCl (Tramadol Hcl 50 Mg Tablet) 50 mg PO Q6HR PRN PRN Reason: PAIN SCALE 4-6 Stop: 04/27/25 18:22 Last Admin: 04/25/25 04:45 Dose: 50 mg Documented By: Admin: 04/24/25 21:28 Dose: 50 mg Documented By: Admin: 04/24/25 15:19 Dose: 50 mg Documented By: Admin: 04/24/25 08:37 Dose: 50 mg Documented By: Admin: 04/23/25 16:45 Dose: 50 mg Documented By: Admin: 04/23/25 08:25 Dose: 50 mg Documented By: Admin: 04/22/25 20:19 Dose: 50 mg Documented By: LOW Rx given. Consultations Consultation(s) initiated? (list below): Yes Consultation #1 (Physician, Specialty, Details): Dr. Summers (IR) kindly agreed to see this pt in the morning for IR pleural catheter removal/exchange. Time: 16:26 Consultation #2 (Physician, Specialty, Details): Paged Hospitalist for possible admission. Time: 16:27 Consultation #3 (Physician, Specialty, Details): Hopsitalist team kindly agreed to evaluate pt in ED for possible admission. Diagnosis Wound Differential Diagnosis: laceration, abrasion, avulsion of skin and other (anemia. ) Most likely diagnosis given after review of the tests above:: anemia. Admission Indicated Admission indicated?: indicated Admission Request Was there a request for admission?: Yes Admission Attestation Admission request attestation: Discussed case with Dr. Flores from Hospitalist service regarding admission. Discussed patients ED course, exam findings, labs, and radiology results. The Hospitalist agrees to accept the patient for admission. Disposition Plan Disposition Plan: Admit Discharge Plan Plan Patient Disposition: Other Care w/in Hosp ([facility]) Discharge Disposition comment: stable Problem List Clinical Impression: Anemia, Complication of catheter, Pneumonia, PT prolonged PA/ENVIRONMENTAL PROGRAMS MANAGER Supervising Physician PA/ENVIRONMENTAL PROGRAMS MANAGER Supervising Physician: Dr. Schwartz
[2025-04-22 12:56] LABS: Basophils % (Auto) 1 % (0-2.5); Eosinophils # (Auto) 0.1 Thou/mm3 (0.0-0.5); Eosinophils % (Auto) 2 % (0-10); Hematocrit 23.9 % (41.0-53.0); Immature Granulocytes % (Auto) 6 % (0-0); Immature Granulocytes Auto 0.38 Thou/mm3 (0.00-0.00); Lymphocytes # (Auto) 1.5 Thou/mm3 (1.0-4.8); Lymphocytes % (Auto) 22 % (10-50); Mean Corpuscular HGB Conc 33.9 g/dl (31.0-37.0); Mean Corpuscular Volume 80 fL (80-100); Monocytes # (Auto) 0.5 Thou/mm3 (0.0-0.8); Monocytes % (Auto) 8 % (0-12); Neutrophils # (Auto) 4.2 Thou/mm3 (1.8-7.7); Neutrophils % (Auto) 62 % (37-80); Nucleated Red Blood Cell # 0.07 Thou/mm3 (0.00-0.00); Nucleated Red Blood Cell % 1 /100 WBC (0); Platelet Count 101 Thou/mm3 (140-440); RDW Standard Deviation 44.8 fL (35.1-43.9); White Blood Count 6.8 Thou/mm3 (3.8-10.6)
[2025-04-22 12:57] LABS: Hemoglobin 8.1 g/dL (13.5-16.0)
[2025-04-22 13:14] LABS: INR 1.3 (0.9-1.3); Partial Thromboplastin Time 31.7 Seconds (22.0-36.0); Prothrombin Time 13.9 Seconds (9.0-12.2)
[2025-04-22] MEDS: HYDROcodone/APAP 7.5/325 TABLET 1 TAB PO (13:20)
[2025-04-22 14:24] LABS: Anion Gap 6 (7-16); BUN/Creatinine Ratio 18 Ratio (12-20); Blood Urea Nitrogen 11 mg/dL (9-23); Calcium 8.9 mg/dL (8.3-10.6); Carbon Dioxide 27.2 mMol/L (20.0-31.0); Chloride 103 mMol/L (98-107); Creatinine (Component) 0.6 mg/dL (0.6-1.3); Estimated Creatinine Clearance 128.1 mL/min (>60); Glucose 114 mg/dL (74-106); Osmolality,Calculated 272 (275-295); Potassium 4.1 mMol/L (3.4-5.1); Sodium 136 mMol/L (136-145); eGFR > 60 See Note
--- NOTE | 2025-04-22 16:41 | PC.NURSE ---
sarah busch at bedside suturing rt side chest tube in place better to stop some bleeding noted from gauze. I applied sterile petrolatum gauze then dry gauze to cover site with sponge tape per sarah
--- NOTE | 2025-04-22 18:27 | PD.RESHP ---
Documentation for date of: 04/22/25 [facility] History of Present Illness History of present illness: Garcia Salinas is a 49-year-old male with past medical history of metastatic cancer of unknown origin (suspect upper GI or pancreaticobiliary source) status post port placement on 03/23 pending chemotherapy, malignant pleural effusions requiring thoracentesis, status post Pleurx catheter placement on 04/20 presents to the ED on 04/22 for drainage around right sided PleurX catheter site that he described as significant bleeding. Associated pleuritic chest pain on the right side but denies any shortness of breath, fever, chills, nausea, vomiting. In ED, BP 96/65 heart rate 112 but otherwise afebrile and breathing comfortably on room air. CBC showed hemoglobin 8.1 which dropped from 9.8 on day of Pleurx catheter insertion. CHEM panel largely unremarkable. CTA chest showed moderate right-sided pleural fluid mild left-sided pleural fluid but Pleurx catheter in satisfactory position. Per report, radiology to replace Pleurx catheter tomorrow morning and will admit patient under observation for procedure tomorrow. 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 PSHx: port placement 03/23, Pleurx catheter placement 04/20 Review of Systems Review of Systems Systems Reviewed: All systems reviewed, normal except as documented Exam Vital Signs Temp Pulse Resp BP Pulse Ox O2 Del Method 98.2 F 112 H 18 96/65 96 Room Air 04/22/25 12:11 04/22/25 12:11 04/22/25 12:11 04/22/25 12:11 04/22/25 12:11 04/22/25 12:11 Narrative Exam General: AOx3, no acute distress, able to speak full sentences HEENT: conjunctival pallor, NC/AT, mucous membranes moist Cardiovascular: regular rate and rhythm, S1/S2 present, no murmurs appreciated Pulmonary: decreased lung sounds on right side Abdominal: soft, non-tender, non-distended, no rebound/guarding, normal bowel sounds present Musculoskeletal: normal ROM, no peripheral edema Skin: pleurx catheter site bandaged, not currently drainig Neuro: CN II-XII intact, no focal deficits Results: Labs 04/23/25 04:45 04/23/25 04:45 Labs: Short CBC 04/22/25 Range/Units 12:40 WBC 6.8 (3.8-10.6) Thou/mm3 Hgb 8.1 L (13.5-16.0) g/dL Hct 23.9 L (41.0-53.0) % Plt Count 101 L (140-440) Thou/mm3 BMP 04/22/25 12:40 Sodium 136 Potassium 4.1 Chloride 103 Carbon Dioxide 27.2 BUN 11 Creatinine 0.6 Glucose 114 H Calcium 8.9 Quality Measures Quality Measures VTE prophylaxis Medications Home Medications and Allergies Home Medications ?Medication ?Instructions ?Recorded ?Confirmed ?Type acetaminophen 650 mg 650 mg PO Q8H PRN pain 03/23/25 04/22/25 History tablet,extended release (8 Hour Pain Reliever) Allergies Allergy/AdvReac Type Severity Reaction Status Date / Time Penicillins Allergy Intermediate RASH Verified 04/22/25 12:07 Visit Medications Acetaminophen (Acetaminophen 325 Mg Tablet) 650 mg PO Q6H PRN PRN Reason: PAIN OR FEVER > 100.4 Stop: 05/22/25 18:22 Azithromycin 500 mg/ Sodium (Chloride) 250 mls @ 250 mls/hr IV X1 ONE Stop: 04/22/25 18:40 Ondansetron HCl (Ondansetron Inj 2 Mg/Ml Inj 2 Ml) 4 mg IVP Q6H PRN; Protocol PRN Reason: NAUSEA OR VOMITING Stop: 05/22/25 18:22 Tramadol HCl (Tramadol Hcl 50 Mg Tablet) 50 mg PO Q6HR PRN PRN Reason: PAIN SCALE 4-10(Mod-Sev Stop: 04/27/25 18:22 Discontinued Medications Hydrocodone Bitart/Acetaminophen (Hydrocodone/Apap 7.5/325 Tablet) 1 tab PO X1 ONE Stop: 04/22/25 12:27 Last Admin: 04/22/25 13:20 Dose: 1 tab Ceftriaxone Sodium/Dextrose (Rocephin/D5w 1gm Iv Premix) 1 gm in 50 mls @ 100 mls/hr IV X1 ONE Stop: 04/22/25 18:09 Assessment & Plan Plan Garcia Salinas is a 49-year-old male with past medical history of metastatic cancer of unknown origin (suspect upper GI or pancreaticobiliary source) status post port placement on 03/23 pending chemotherapy, malignant pleural effusions requiring thoracentesis, status post Pleurx catheter placement on 04/20 who will be admitted under observation to monitor hemoglobin and pending Pleurx catheter replacement tomorrow. #Acute blood loss anemia in setting of Pleurx catheter placement #Pleurx catheter for malignant pleural effusions Hemoglobin of 8.1 that dropped from 9.8 two days prior when Pleurx catheter was placed. Tachycardic in low 100s and scleral icterus noted on exam. ? Repeat H&H at midnight ? 2 units pRBC ready to transfuse if repeat below 7 #Metastatic disease of unknown origin #Malignant pleural effusions ? Planned replacement of pleurx catheter tomorrow morning ? NPO after midnight ? Coag studies in AM ? Continue outpatient follow-up Hospital management: Disposition: pending pleurx catheter exchange Diet: regular, NPO after midnight Lines: PIV, pleurx DVT prophylaxis: SCDs CODE STATUS: full code ----- Plan discussed with attending physician Dr. Criselda Flores MD PGY-1 Internal Medicine Attending Provider Attestation/Addendum I attest that I was physically present for the evaluation, physical examination, lab and imaging review of the patient with the residents. I discussed the case with the residents and agree with the findings and plans of care as documented above. Patient is a 49 years old male with past medical history of metastatic cancer of unknown origin status post port placement awaiting chemotherapy, malignant pleural effusion requiring thoracentesis, status post Pleurx catheter who presented to the ED for drainage of right-sided Pleurx catheter which was significantly bleeding. He also has associated pleuritic chest pain. Denies any shortness of breath, fever, cough. In the ED, blood pressure is 96/65 and pulse 112, rest of the vitals are within normal limit, saturating well on room air. CTA chest was obtained which showed moderate right-sided pleural fluid and mild left-sided pleural fluid along with Pleurx catheter in satisfactory position. ED discussed with radiology, who recommended close monitoring of his hemoglobin level and removal/replacement of the catheter tomorrow. After examination of the patient and review of the clinical data I feel that this patient needs observation in the hospital for further treatment/evaluation of acute blood loss anemia in setting of Pleurx catheter. Hemoglobin noted to have dropped to 8.1 from prior visit. We will obtain hemoglobin level overnight, 2 units of PRBC are ready transfusion is indicated. We will also keep patient n.p.o. after overnight for Pleurx catheter placement in a.m. Travis Aburto MD
[2025-04-22 19:40] VITALS: BP 123/75; PULSE 100; RESP 14; TEMP 37; O2SAT 94
[2025-04-22 20:05] VITALS: BP 126/79; PULSE 106; RESP 20; TEMP 36.2; O2SAT 94; BMI 24.0
[2025-04-22] MEDS: cefTRIAXone/D5w 1gm IV premix 1 GM/50 ML BAG IV (20:11)
[2025-04-22] MEDS: traMADol HCL 50 MG TABLET PO (20:19)
[2025-04-22] MEDS: AZITHROMYCIN INJ 500 MG in SODIUM CHLORIDE 0.9% 250 ML 250 ML 250 MG IV (21:00)
[2025-04-23] VITALS (12 sets, daily range): BP systolic 93–120; BP diastolic 64–79; PULSE 91–107; RESP 16–20; TEMP 36.1–37; O2SAT 90–96
[2025-04-23 01:19] LABS: Hematocrit 20.6 % (41.0-53.0)
[2025-04-23 01:42] LABS: Hemoglobin 7.1 g/dL (13.5-16.0)
--- NOTE | 2025-04-23 02:24 | PC.NURSE ---
Dr Farrell notified of H/H 7.1 20.6. Blood transfusion consent formed signed and verbal order to not transfuse at this time. No active bleeding at the dressing location right chest.
[2025-04-23 05:50] LABS: Basophils % (Auto) 1 % (0-2.5); Eosinophils # (Auto) 0.2 Thou/mm3 (0.0-0.5); Eosinophils % (Auto) 3 % (0-10); Hematocrit 20.9 % (41.0-53.0); Immature Granulocytes % (Auto) 6 % (0-0); Immature Granulocytes Auto 0.41 Thou/mm3 (0.00-0.00); Lymphocytes # (Auto) 1.6 Thou/mm3 (1.0-4.8); Lymphocytes % (Auto) 25 % (10-50); Mean Corpuscular HGB Conc 34.4 g/dl (31.0-37.0); Mean Corpuscular Hemoglobin 27.6 pg (25.0-35.0); Mean Corpuscular Volume 80 fL (80-100); Monocytes # (Auto) 0.5 Thou/mm3 (0.0-0.8); Monocytes % (Auto) 8 % (0-12); Neutrophils # (Auto) 3.7 Thou/mm3 (1.8-7.7); Neutrophils % (Auto) 58 % (37-80); Nucleated Red Blood Cell % 2 /100 WBC (0); Platelet Count 87 Thou/mm3 (140-440); RDW Standard Deviation 45.1 fL (35.1-43.9); Red Blood Count 2.61 Miln/mm3 (4.50-5.90); White Blood Count 6.5 Thou/mm3 (3.8-10.6)
[2025-04-23 05:56] LABS: Hemoglobin 7.2 g/dL (13.5-16.0); INR 1.3 (0.9-1.3); Partial Thromboplastin Time 36.3 Seconds (22.0-36.0)
[2025-04-23 06:20] LABS: Anion Gap 9 (7-16); BUN/Creatinine Ratio 16 Ratio (12-20); Blood Urea Nitrogen 8 mg/dL (9-23); Calcium 8.7 mg/dL (8.3-10.6); Carbon Dioxide 25.4 mMol/L (20.0-31.0); Chloride 102 mMol/L (98-107); Creatinine (Component) 0.5 mg/dL (0.6-1.3); Estimated Creatinine Clearance 153.8 mL/min (>60); Glucose 98 mg/dL (74-106); Osmolality,Calculated 270 (275-295); Potassium 4.1 mMol/L (3.4-5.1); Sodium 136 mMol/L (136-145); eGFR > 60 See Note
[2025-04-23] MEDS: traMADol HCL 50 MG TABLET PO ×2 (08:25→16:45)
--- NOTE | 2025-04-23 09:51 | PC.SS ---
Garcia Toscano is a 49 Year old male admitted for Pleurx catheter exchange, anemia. SS met with patient at bedside to discuss discharge plan and verify demographic information. Patient reports he lives at home with his .? Pt ambulates independently without assistance or DME.?Patient is able to complete all ADL's independently. Patient?s pharmacy of choice is [facility] Pt named his , Jailene Méndez medical decision maker [phone]. Patient?s choice is to return home upon discharge.?Patient's will provide transportation. D/C plan:? Return home Next of Kin:? Jailene Méndez, , phone# [phone] PCP:? Dr. Kenneth Baker from [facility] in [place]
--- NOTE | 2025-04-23 12:47 | PC.SS ---
SS follow up note; Possible discharge home today after Pleurx catheter is changed.
--- NOTE | 2025-04-23 13:33 | ESPR_ITS ---
Documentation for date of: 04/23/25 Subjective Subjective Interval history: No acute overnight events. Seen and examined at bedside after patient went down to IR and no signs of bleeding after resutured by ED. Thus, patient stated he would like to keep it in IR deemed that it was stable to remain in place. Patient also stating that he is experiencing pleuritic chest pain when coughing and with deep breaths, which are symptoms he tends to get when he needs to be drained and saturating 92-94% on room air. Will attempt to drain today as IR states that should be stable without concerns for bleeding. Repeat hemoglobin in a.m. labs show drop in hemoglobin from 8.1 to 7.1 and will transfuse 1 unit PRBC and follow-up posttransfusion H&H. If stable, anticipate discharge within next 24 to 48 hours. Exam Vital Signs Temp Pulse Resp BP Pulse Ox O2 Del Method 98.5 F 94 18 110/72 92 L Room Air 04/23/25 12:16 04/23/25 12:16 04/23/25 12:16 04/23/25 12:16 04/23/25 12:16 04/23/25 12:00 Narrative Exam General: AOx3, no acute distress, able to speak full sentences HEENT: conjunctival pallor, NC/AT, mucous membranes moist Cardiovascular: regular rate and rhythm, S1/S2 present, no murmurs appreciated Pulmonary: decreased lung sounds on right side Abdominal: soft, non-tender, non-distended, no rebound/guarding, normal bowel sounds present Musculoskeletal: normal ROM, no peripheral edema Skin: pleurx catheter site bandaged, not currently drainig Neuro: CN II-XII intact, no focal deficits Objective Labs 04/23/25 04:45 04/23/25 04:45 Labs: Laboratory Results - last 24 hr 04/22/25 04/22/25 04/23/25 12:40 16:54 00:52 WBC RBC Hgb 7.1 L Hct 20.6 L* MCV MCH MCHC RDW Std Deviation Plt Count Neut % (Auto) Lymph % (Auto) [place] % (Auto) Eos % (Auto) Baso % (Auto) Neut # (Auto) Lymph # (Auto) [place] # (Auto) Eos # (Auto) Baso # (Auto) Immature Gran # (Auto) Absolute Nucleated RBC Immature Gran % Nucleated RBC % PT INR APTT Sodium 136 Potassium 4.1 Chloride 103 Carbon Dioxide 27.2 Anion Gap 6 L BUN 11 Creatinine 0.6 Estim Creat Clear Calc 128.1 eGFR > 60 BUN/Creatinine Ratio 18 Glucose 114 H Calculated Osmolality 272 L Calcium 8.9 Blood Type A Positive Antibody Screen NEGATIVE Crossmatch See Detail Blood Bank Wristband ID Yes 04/23/25 04:45 WBC 6.5 RBC 2.61 L Hgb 7.2 L Hct 20.9 L* MCV 80 MCH 27.6 MCHC 34.4 RDW Std Deviation 45.1 H Plt Count 87 L Neut % (Auto) 58 Lymph % (Auto) 25 [place] % (Auto) 8 Eos % (Auto) 3 Baso % (Auto) 1 Neut # (Auto) 3.7 Lymph # (Auto) 1.6 [place] # (Auto) 0.5 Eos # (Auto) 0.2 Baso # (Auto) 0.0 Immature Gran # (Auto) 0.41 H Absolute Nucleated RBC 0.10 H Immature Gran % 6 H Nucleated RBC % 2 H PT 14.0 H INR 1.3 APTT 36.3 H Sodium 136 Potassium 4.1 Chloride 102 Carbon Dioxide 25.4 Anion Gap 9 BUN 8 L Creatinine 0.5 L Estim Creat Clear Calc 153.8 eGFR > 60 BUN/Creatinine Ratio 16 Glucose 98 Calculated Osmolality 270 L Calcium 8.7 Blood Type Antibody Screen Crossmatch Blood Bank Wristband ID Quality Measures Quality Measures VTE prophylaxis Assessment & Plan Assessment Current Active Medications: Generic Name Dose Route Start Last Admin Trade Name Freq PRN Reason Stop Dose Admin Acetaminophen 650 mg 04/22/25 18:23 Acetaminophen 325 Mg Tablet PO 05/22/25 18:22 Q6H PRN PAIN 1-3 OR FEVER > 100.4 Ondansetron HCl 4 mg 04/22/25 18:23 Ondansetron Inj 2 Mg/Ml Inj 2 Ml IVP 05/22/25 18:22 Q6H PRN NAUSEA OR VOMITING Protocol Tramadol HCl 50 mg 04/22/25 18:23 04/23/25 08:25 Tramadol Hcl 50 Mg Tablet PO 04/27/25 18:22 50 mg Q6HR PRN Administration PAIN SCALE 4-6 Plan Garcia Salinas is a 49-year-old male with past medical history of metastatic cancer of unknown origin (suspect upper GI or pancreaticobiliary source) status post port placement on 03/23 pending chemotherapy, malignant pleural effusions requiring thoracentesis, status post Pleurx catheter placement on 04/20 who will be admitted under observation to monitor hemoglobin and pending Pleurx catheter replacement tomorrow. #Acute blood loss anemia in setting of Pleurx catheter placement #Pleurx catheter for malignant pleural effusions Hemoglobin of 8.1 that dropped from 9.8 two days prior when Pleurx catheter was placed. Tachycardic in low 100s and scleral icterus noted on exam. ? Transfuse 1 unit pRBC ? Post-transfusion H&H ? 1 unit pRBC ready to transfuse if needed ? Will plan to drain via Pleurx catheter today given patient symptoms #Metastatic disease of unknown origin #Malignant pleural effusions ? Continue outpatient follow-up Hospital management: Disposition: Will monitor H&H for another night and anticipate discharge within 24-48 hours, plan to drain via Pleurx Diet: regular Lines: PIV, pleurx DVT prophylaxis: SCDs CODE STATUS: full code ----- Plan discussed with attending physician Dr. Criselda Flores MD PGY-1 Internal Medicine Attending Provider Attestation/Addendum I attest that I was physically present for the evaluation, physical examination, lab and imaging review of the patient with the residents. I discussed the case with the residents and agree with the findings and plans of care as documented above. Patient is alert and oriented, denies any new complaints, appears comfortable. Patient went to the IR, was found to have no signs of bleeding after resutured by ED. He had discussion with IR and wished to keep his Pleurx catheter in place. We will resume drainage from the catheter. Repeat hemoglobin levels show drop in hemoglobin to 7.1 from 8.1 yesterday. We will transfuse 1 unit of PRBC and follow-up with posttransfusion H&H. If patient continues to be stable and hemoglobin is in safe level tomorrow, we will plan for discharge. Travis Aburto MD
[2025-04-23 17:00] LABS: Hematocrit 24.9 % (41.0-53.0)
--- NOTE | 2025-04-23 17:09 | PC.NURSE ---
pleur vac connected per dr. amor order. 1 liter of fluids removed, dark red. made aware . no new orders received.
[2025-04-23 17:24] LABS: Hemoglobin 8.8 g/dL (13.5-16.0)
[2025-04-23] MEDS: ACETAMINOPHEN 325 MG TABLET 650 MG PO (20:08)
[2025-04-24] VITALS: BP 92/59; PULSE 89; RESP 16; TEMP 36; O2SAT 90
[2025-04-24 04:00] VITALS: BP 111/77; PULSE 98; RESP 16; TEMP 36.5; O2SAT 90
[2025-04-24 05:56] LABS: Basophils # (Auto) 0.1 Thou/mm3 (0.0-0.2); Basophils % (Auto) 1 % (0-2.5); Eosinophils # (Auto) 0.2 Thou/mm3 (0.0-0.5); Eosinophils % (Auto) 3 % (0-10); Hematocrit 25.6 % (41.0-53.0); Immature Granulocytes % (Auto) 7 % (0-0); Immature Granulocytes Auto 0.45 Thou/mm3 (0.00-0.00); Lymphocytes # (Auto) 1.5 Thou/mm3 (1.0-4.8); Lymphocytes % (Auto) 24 % (10-50); Mean Corpuscular HGB Conc 33.6 g/dl (31.0-37.0); Mean Corpuscular Hemoglobin 27.7 pg (25.0-35.0); Mean Corpuscular Volume 82 fL (80-100); Monocytes # (Auto) 0.5 Thou/mm3 (0.0-0.8); Monocytes % (Auto) 8 % (0-12); Neutrophils # (Auto) 3.8 Thou/mm3 (1.8-7.7); Neutrophils % (Auto) 58 % (37-80); Nucleated Red Blood Cell # 0.16 Thou/mm3 (0.00-0.00); Nucleated Red Blood Cell % 2 /100 WBC (0); Platelet Count 97 Thou/mm3 (140-440); RDW Standard Deviation 46.8 fL (35.1-43.9); Red Blood Count 3.11 Miln/mm3 (4.50-5.90); White Blood Count 6.6 Thou/mm3 (3.8-10.6)
[2025-04-24 05:57] LABS: Hemoglobin 8.6 g/dL (13.5-16.0)
[2025-04-24 06:14] LABS: Anion Gap 10 (7-16); BUN/Creatinine Ratio 17 Ratio (12-20); Blood Urea Nitrogen 10 mg/dL (9-23); Calcium 8.9 mg/dL (8.3-10.6); Carbon Dioxide 27.8 mMol/L (20.0-31.0); Chloride 100 mMol/L (98-107); Creatinine (Component) 0.6 mg/dL (0.6-1.3); Estimated Creatinine Clearance 128.1 mL/min (>60); Glucose 105 mg/dL (74-106); Osmolality,Calculated 274 (275-295); Potassium 4.3 mMol/L (3.4-5.1); Sodium 138 mMol/L (136-145); eGFR > 60 See Note
[2025-04-24 08:00] VITALS: BP 113/70; PULSE 100; RESP 18; TEMP 36.3; O2SAT 91
[2025-04-24] MEDS: traMADol HCL 50 MG TABLET PO ×3 (08:37→21:28)
[2025-04-24 11:33] LABS: Pleural Fluid WBC 1407 /cmm
[2025-04-24 11:35] LABS: Pleural Fluid Color Red
[2025-04-24 11:36] LABS: Pleural Fluid Appearance Bloody; Pleural Fluid Mononuclear 81 %; Pleural Fluid Polynuclear 19 %; Pleural Fluid RBC 265000 /cmm
[2025-04-24 11:49] LABS: Amylase,Pleural Fluid 59 IU/L; Glucose,Pleural Fluid 68 mg/dL; LDH,Pleural Fluid 356 IU/L
[2025-04-24 12:00] VITALS: BP 103/68; PULSE 104; RESP 18; TEMP 36.8; O2SAT 92
--- NOTE | 2025-04-24 13:30 | ESPR_ITS ---
Documentation for date of: 04/24/25 Subjective Subjective Interval history: There were no acute overnight events. Yesterday, the patient received one unit of PRBC transfusion, resulting in a hemoglobin increase to 8.6 and a hematocrit of 25.6. Approximately 1 liter of pleural fluid was drained via the Pleurx catheter; per nursing staff, the fluid appeared bloody. In-house pulmonology was consulted. This morning, additional pleural fluid drainage was performed at the bedside, and a sample was sent for analysis. Will continue closely monitor, patient is not complaining of any shortness of breath, saturating in room air 95 to 96%. Has mild pleuritic chest pain, otherwise patient appears hemodynamically stable, today afternoon will repeat H&H, and if by tomorrow morning patient remains stable plan is to discharge in next 24 hours. Exam Vital Signs Temp Pulse Resp BP Pulse Ox O2 Del Method 98.3 F 104 H 18 103/68 92 L Room Air 04/24/25 12:00 04/24/25 12:04/24/25 12:04/24/25 12:04/24/25 12:04/24/25 12:00 Narrative Exam General: AOx3, no acute distress, able to speak full sentences HEENT: conjunctival pallor, NC/AT, mucous membranes moist Cardiovascular: regular rate and rhythm, S1/S2 present, no murmurs appreciated Pulmonary: decreased lung sounds on right side Abdominal: soft, non-tender, non-distended, no rebound/guarding, normal bowel sounds present Musculoskeletal: normal ROM, no peripheral edema Skin: pleurx catheter site bandaged, dressing dry and clean Neuro: CN II-XII intact, no focal deficits Objective Labs 04/24/25 15:04 04/24/25 04:49 Labs: Laboratory Results - last 24 hr 04/22/25 04/23/25 04/24/25 16:54 16:44 04:49 WBC 6.6 RBC 3.11 L Hgb 8.8 L D 8.6 L Hct 24.9 L 25.6 L MCV 82 MCH 27.7 MCHC 33.6 RDW Std Deviation 46.8 H Plt Count 97 L Neut % (Auto) 58 Lymph % (Auto) 24 [place] % (Auto) 8 Eos % (Auto) 3 Baso % (Auto) 1 Neut # (Auto) 3.8 Lymph # (Auto) 1.5 [place] # (Auto) 0.5 Eos # (Auto) 0.2 Baso # (Auto) 0.1 Immature Gran # (Auto) 0.45 H Absolute Nucleated RBC 0.16 H Immature Gran % 7 H Nucleated RBC % 2 H Sodium 138 Potassium 4.3 Chloride 100 Carbon Dioxide 27.8 Anion Gap 10 BUN 10 Creatinine 0.6 Estim Creat Clear Calc 128.1 eGFR > 60 BUN/Creatinine Ratio 17 Glucose 105 Calculated Osmolality 274 L Calcium 8.9 Pleural Color Pleural Appearance Pleural WBC Pleural RBC Pleural Polynuclear WBC Pleural Mononuclear WBC Pleural Total Protein Pleural LDH Pleural Glucose Pleural Amylase Crossmatch See Detail 04/24/25 11:11 WBC RBC Hgb Hct MCV MCH MCHC RDW Std Deviation Plt Count Neut % (Auto) Lymph % (Auto) [place] % (Auto) Eos % (Auto) Baso % (Auto) Neut # (Auto) Lymph # (Auto) [place] # (Auto) Eos # (Auto) Baso # (Auto) Immature Gran # (Auto) Absolute Nucleated RBC Immature Gran % Nucleated RBC % Sodium Potassium Chloride Carbon Dioxide Anion Gap BUN Creatinine Estim Creat Clear Calc eGFR BUN/Creatinine Ratio Glucose Calculated Osmolality Calcium Pleural Color Red Pleural Appearance Bloody Pleural WBC 1407 Pleural RBC [id number] Pleural Polynuclear WBC 19 Pleural Mononuclear WBC 81 Pleural Total Protein 4.0 Pleural LDH 356 Pleural Glucose 68 Pleural Amylase 59 Crossmatch Quality Measures Quality Measures VTE prophylaxis Assessment & Plan Assessment Current Active Medications: Generic Name Dose Route Start Last Admin Trade Name Freq PRN Reason Stop Dose Admin Acetaminophen 650 mg 04/22/25 18:23 04/23/25 20:08 Acetaminophen 325 Mg Tablet PO 05/22/25 18:22 650 mg Q6H PRN Administration PAIN 1-3 OR FEVER > 100.4 Ondansetron HCl 4 mg 04/22/25 18:23 Ondansetron Inj 2 Mg/Ml Inj 2 Ml IVP 05/22/25 18:22 Q6H PRN NAUSEA OR VOMITING Protocol Tramadol HCl 50 mg 04/22/25 18:23 04/24/25 08:37 Tramadol Hcl 50 Mg Tablet PO 04/27/25 18:22 50 mg Q6HR PRN Administration PAIN SCALE 4-6 Plan Garcia Everton Salinas is a 49-year-old male with past medical history of metastatic cancer of unknown origin (suspect upper GI or pancreaticobiliary source) status post port placement on 03/23 pending chemotherapy, malignant pleural effusions requiring thoracentesis, status post Pleurx catheter placement on 04/20 who will be admitted under observation to monitor hemoglobin and pending Pleurx catheter replacement tomorrow. #Exudative malignant pleural effusion due to metastatic lung adenocarcinoma Most likely primary source is GI Pleural fluid: Bloody, lymphocyte predominant effusion with low glucose and elevated LDH consistent with malignancy No evidence of superimposed infection at this time Pleurx catheter functioning appropriately Pleural fluid analysis : Bloody/red, RBC 265,000, lymphocyte 81, glucose 4, LDH 356, protein 68. Pleural fluid is grossly bloody, but does not meet criteria for hemothorax. Appearance and lab profile are consistent with more chronic malignant effusion in the context of metastatic lung cancer No signs of hemodynamic instability which would be expected in hemothorax, no tachycardia, no hypotension, patient has been chronically anemic, hemoglobin did not drop significantly ?Continue routine pleural drainage via Pleurx as tolerated ?Monitor for signs of infection such as fever, increased WBC ?Symptom based management, goal remains palliative ?Continue current care with oncology/palliative care, patient might need cardiothoracic surgery evaluation after this #Normocytic anemia most likely multifactorial, less likely acute blood loss, MCV within normal limits #Pleurx catheter for malignant pleural effusions Hemoglobin of 8.1 that dropped from 9.8 two days prior when Pleurx catheter was placed. Tachycardic in low 100s and scleral icterus noted on exam. 1 PRBC was transfused yesterday ? 1 unit pRBC ready to transfuse if needed ? Will continue close monitor hemodynamics, will follow-up with repeat H&H #Metastatic disease of unknown origin #Malignant pleural effusions ? Continue outpatient follow-up [facility]: regular Lines: PIV, pleurx DVT prophylaxis: SCDs CODE STATUS: full code Patient care was discussed with attending physician Dr. Criselda Salazar MD PGY-2 Attending Provider Attestation/Addendum I attest that I was physically present for the evaluation, physical examination, lab and imaging review of the patient with the residents. I discussed the case with the residents and agree with the findings and plans of care as documented above. At bedside today, patient states she is feeling well and denies any new complaints. His chest pain has been improving, saturating well on room air. Yesterday evening, had drainage of 1 L pleural fluid, as per the nurse was reddish and dark. Discussed with pulmonology today, patient underwent drainage at bedside, produced reddish fluid again but does not appear frankly bloody, pleural fluid sent for studies, noted to have 265,000 of RBCs, likely from malignancy then bleeding, recommended to monitor his hemoglobin level until tomorrow, appreciate recommendations. Hemoglobin has improved to 8.6 today compared to 7.2 yesterday after transfusion of 1 unit of PRBC. We will monitor him closely, if hemoglobin remains stable, we will plan for discharge tomorrow, patient may need evaluation by cardiothoracic surgery. Travis Aburto MD
[2025-04-24 15:16] LABS: Hematocrit 24.9 % (41.0-53.0)
[2025-04-24 15:21] LABS: Hemoglobin 8.7 g/dL (13.5-16.0)
[2025-04-24 15:30] VITALS: BP 97/74; PULSE 98; RESP 18; TEMP 36.7; O2SAT 92
--- NOTE | 2025-04-24 17:42 | ESCONSULT_ITS ---
HPI Pulmonology Consult Data of Consult Requesting Physician: Madan Bonds MD Primary Care Provider: Kenneth Baker PA-C Consult Narrative History of present illness: Patient is a 49-year-old male with recently diagnosed right malignant pleural effusion with suspected GI primary source. Patient recently had Pleurx catheter placed with bloody output. Patient experiencing significant pain and some shortness of breath. Medicine team requesting pulmonology assistance for drainage and further workup as the patient had a drop in hemoglobin and is concerning for new hemothorax after drainage yesterday done in the ED suggested presence of blood. Patient with no acute distress, he is having some pain at the site but it has improved since procedure. Denied any significant bleeding from the catheter. is at bedside and confirms that they have not attempted to drain at home since his procedure. Patient without any recent fever, chills, or night sweats. Patient awaiting further outpatient workup for his underlying malignancy and potential treatment. cc:: cc: Madan Bonds MD Review of Systems Review of Systems Narrative Review of Systems: Pertinent review of system completed with significant findings in HPI above. Past Medical History Past Medical History Comments PMH COMMENT: Past medical history, past surgical history, family history, and social history reviewed with pertinent findings included above. Meds Home Medications and Allergies Home Medications ?Medication ?Instructions ?Recorded ?Confirmed ?Type acetaminophen 650 mg 650 mg PO Q8H PRN pain 03/2305/07/25 History tablet,extended release (8 Hour Pain Reliever) Allergies Allergy/AdvReac Type Severity Reaction Status Date / Time Penicillins Allergy Intermediate RASH Verified 05/03/25 13:36 Exam Vital Signs Temp Pulse Resp BP Pulse Ox O2 Del Method 98.1 F 98 18 97/74 92 L Room Air 04/24/25 15:30 04/24/25 15:30 04/24/25 15:30 04/24/25 15:30 04/24/25 15:30 04/24/25 15:30 Narrative Exam GEN: NAD, AAOX3 HEENT: MMM, EOMI CHEST: right lateral chest wall with healed incison/ tract, dried blood, drainage of 500 of free flowing serosanguinous fluid from right Pleurex catheter, limited by pain initially but dry at end CVS:S1/S2+ RRR PULM: Normal advential BS anteriorly and at left base, dimished/ crackles at the right base ABD: soft, ND, NT, BS+ EXT: no pedal edema NEURO: nonfocal grossly PSYCH: appropriate/ mood and affect Physical Exam Completion Physical Exam Complete?: Yes Results - Shipping And Receiving Clerk Labs 04/25/25 04:30 04/25/25 04:30 Labs: Short CBC 04/24/25 04/24/25 Range/Units 04:49 15:04 WBC 6.6 (3.8-10.6) Thou/mm3 Hgb 8.6 L 8.7 L (13.5-16.0) g/dL Hct 25.6 L 24.9 L (41.0-53.0) % Plt Count 97 L (140-440) Thou/mm3 BMP 04/24/25 04:49 Sodium 138 Potassium 4.3 Chloride 100 Carbon Dioxide 27.8 BUN 10 Creatinine 0.6 Glucose 105 Calcium 8.9 Assessment & Plan Additional Plan Additional Plan: Malignant pleural effusion complicated by hemothorax post procedure Patient output continues to be thin and free-flowing suggesting that there may be a blood component but it is not all blood on gross examination. Nonetheless we did send for fluid analysis. There is no suggestion of infection at this point which is reassuring our very high RBC count suggesting bleeding into the pleural cavity at some point. Definitely exudative as expected with malignancy and sometimes blood is seen routinely with malignant effusions. Notably, patient without high output given the drainage was completed yesterday in the ED and repeated this morning with less volume. I do not suspect that he is actively oozing/bleeding into the chest now and this may be old blood that is remanent. To be reassured patient was transfused blood 1 unit PRBC and follow- up with serial H&H should be completed to ensure stability prior to patient being discharged. Effusion should be managed with repeated drainage on a daily basis or as needed based on symptoms. This will allow for pleurodesis to naturally occur and close the potential space and avoid recurrence of effusion. I remain available for any further questions I will continue to follow the patient as needed peripherally if not discharged tomorrow morning. Provider Notation Provider Notation: Although this document has been carefully reviewed, there may still be some phonetic and other typographical errors. These errors are purely grammatical due to imperfections in the software program and should not be construed in any way to compromise the substance of the patient's medical care during this visit. Thank you for the opportunity and privilege in assisting you with this patient's care and management.
[2025-04-24 20:00] VITALS: BP 103/69; PULSE 75; RESP 20; TEMP 37; O2SAT 91
[2025-04-24] MEDS: ACETAMINOPHEN 325 MG TABLET 650 MG PO (20:09)
[2025-04-25] VITALS: BP 104/62; PULSE 85; RESP 16; TEMP 36.4; O2SAT 92
[2025-04-25 04:00] VITALS: BP 117/76; PULSE 73; RESP 20; TEMP 36.4; O2SAT 93
[2025-04-25] MEDS: traMADol HCL 50 MG TABLET PO (04:45)
[2025-04-25 05:41] LABS: Basophils # (Auto) 0.1 Thou/mm3 (0.0-0.2); Basophils % (Auto) 1 % (0-2.5); Eosinophils # (Auto) 0.2 Thou/mm3 (0.0-0.5); Eosinophils % (Auto) 2 % (0-10); Hematocrit 24.7 % (41.0-53.0); Immature Granulocytes % (Auto) 7 % (0-0); Immature Granulocytes Auto 0.47 Thou/mm3 (0.00-0.00); Lymphocytes # (Auto) 1.7 Thou/mm3 (1.0-4.8); Lymphocytes % (Auto) 26 % (10-50); Mean Corpuscular HGB Conc 33.6 g/dl (31.0-37.0); Mean Corpuscular Hemoglobin 27.7 pg (25.0-35.0); Mean Corpuscular Volume 82 fL (80-100); Monocytes # (Auto) 0.5 Thou/mm3 (0.0-0.8); Monocytes % (Auto) 8 % (0-12); Neutrophils # (Auto) 3.5 Thou/mm3 (1.8-7.7); Neutrophils % (Auto) 55 % (37-80); Nucleated Red Blood Cell # 0.13 Thou/mm3 (0.00-0.00); Nucleated Red Blood Cell % 2 /100 WBC (0); Platelet Count 87 Thou/mm3 (140-440); RDW Standard Deviation 47.4 fL (35.1-43.9); White Blood Count 6.4 Thou/mm3 (3.8-10.6)
[2025-04-25 05:50] LABS: Anion Gap 9 (7-16); BUN/Creatinine Ratio 14 Ratio (12-20); Blood Urea Nitrogen 7 mg/dL (9-23); Calcium 8.7 mg/dL (8.3-10.6); Chloride 100 mMol/L (98-107); Creatinine (Component) 0.5 mg/dL (0.6-1.3); Estimated Creatinine Clearance 153.8 mL/min (>60); Glucose 108 mg/dL (74-106); Hemoglobin 8.3 g/dL (13.5-16.0); Osmolality,Calculated 270 (275-295); Potassium 4.2 mMol/L (3.4-5.1); Sodium 136 mMol/L (136-145); eGFR > 60 See Note
[2025-04-25 08:00] VITALS: BP 94/65; PULSE 99; RESP 18; TEMP 36.4; O2SAT 92
--- NOTE | 2025-04-25 09:55 | PD.RESDS ---
Planned Discharge Date 04/25/25 DS: Providers Provider Date of admission: 04/22/25 18:23 Primary care physician: Kenneth Baker PA-C Admitting Provider: Travis Aburto MD Attending Provider on Admission: Madan Bonds MD Consults: 04/24/25 13:30 Consult to Pulmonology Routine Comment: malignant pleural effusion Consulting Provider: Madan Bonds I Attending Provider on DC: Luis Miguel Flores MD Discharging Provider: Luis Miguel Flores MD DS: Diagnosis Problem List Completed Was Problem List Reviewed/Reconciled?: Yes Hospital Course Hospital Course Hospital course: Garcia Salinas is a 49-year-old male with past medical history of metastatic cancer of unknown origin (suspect upper GI or pancreaticobiliary source) status post port placement on 03/23 pending chemotherapy, malignant pleural effusions requiring thoracentesis, status post Pleurx catheter placement on 04/20 who was admitted for acute blood loss anemia secondary to Pleurx catheter. Ultimately, Pleurx catheter was left in place as no signs of bleeding present after evaluated by IR. Patient was given 1 unit PRBC and posttransfusion H&H showed improvement of hemoglobin from 7.2 to 8.8. Patient was monitored for another day and Pleurx catheter drained approximately 1 L of bloody appearing pleural fluid, pleural fluid analysis showed 265,000 RBC with following morning hemoglobin continued to be stable at 8.3. Vital signs also stable, BP 103/67 and HR 87, CHEM panel unremarkable. Patient has an appointment with Dr. Schwartz tomorrow and instructed patient to discuss recent events as well as recommend possible evaluation by cardiothoracic surgery. Diagnoses during admission: #Exudative malignant pleural effusion due to metastatic lung adenocarcinoma #Normocytic anemia most likely multifactorial, less likely acute blood loss, MCV within normal limits #Pleurx catheter for malignant pleural effusions #Metastatic disease of unknown origin #Malignant pleural effusions Discharge instructions: ? Continue taking home medications as prescribed ? Obtain CBC within 1 week ? [facility] on Saturday per your scheduled appointment ? Recommend obtaining referral to cardiothoracic surgery for evaluation of malignant pleural effusions ? Follow-up with PCP within 1-2 weeks of discharge ? If you do not have a PCP, you can follow-up at the [facility] (you can call [phone] to make an appointment) ? If you wish to follow-up with Dr. Flores, schedule appointment on Saturday ? Return to ED if symptoms worsen or recur as needed for transfusions and/or pleural drainage ----- Plan discussed with attending physician Dr. Criselda Flores MD PGY-1 Internal Medicine Time Spent with Patient Time attestation: Total time spent providing and/or coordinating discharge services: Time spent: Less than 30 minutes Exam Vital Signs Temp Pulse Resp BP Pulse Ox O2 Del Method 97.5 F 99 18 94/65 92 L Room Air 04/25/25 08:00 04/25/25 08:00 04/25/25 08:00 04/25/25 08:00 04/25/25 08:00 04/25/25 08:00 Narrative Exam General: AOx3, no acute distress, able to speak full sentences HEENT: conjunctival pallor, NC/AT, mucous membranes moist Cardiovascular: regular rate and rhythm, S1/S2 present, no murmurs appreciated Pulmonary: decreased lung sounds on right side Abdominal: soft, non-tender, non-distended, no rebound/guarding, normal bowel sounds present Musculoskeletal: normal ROM, no peripheral edema Skin: pleurx catheter site bandaged, dressing dry and clean Neuro: CN II-XII intact, no focal deficits Discharge Plan Plan Patient Disposition: HOME (Self Care) Care Plan Goals: ? Continue taking home medications as prescribed ? Obtain CBC within 1 week ? Follow-up at [facility] on Saturday per your scheduled appointment ? Recommend obtaining referral to cardiothoracic surgery for evaluation of malignant pleural effusions ? Follow-up with PCP within 1-2 weeks of discharge ? If you do not have a PCP, you can follow-up at the [facility] (you can call [phone] to make an appointment) ? If you wish to follow-up with Dr. Flores, schedule appointment on Saturday ? Return to ED if symptoms worsen or recur as needed for transfusions and/or pleural drainage Prescriptions/Referrals Prescriptions/Med Rec: Continued tramadol 50 mg tablet 50 mg PO Q6H PRN (Reason: pain) Qty: 30 0RF acetaminophen [8 Hour Pain Reliever] 650 mg tablet extended release 650 mg PO Q8H PRN (Reason: pain) Referrals: Kenneth Baker PA-C [Primary Care Provider] - Patient/Caregiver Discharge Instructions Education Materials: Anemia Chemo, Shortness of Breath Coping, Preventing Common Respiratory ... Print Language: Fijian Stand Alone Forms: [facility] Award Info., Patient Portal Info Letter, Work/Release Restrictions Discharge Order Discharge Orders: Discharge (Routine); Ordered 04/25/25 Ordered By: Luis Miguel Flores Quality Discharge Quality Measures VTE prophylaxis (SCDs given bleed) Attestestation MD Attestation I attest that I was physically present for the evaluation, physical examination, lab and imaging review of the patient with the residents. I discussed the case with the residents and agree with the findings and plans of care as documented above. Travis Aburto MD
[2025-04-25 12:00] VITALS: BP 103/67; PULSE 87; RESP 17; TEMP 36.7; O2SAT 91
== END 2025-04-25 13:10 | disposition home or self-care (01) ==
LOC: SERX 17:38 → SERHOLD 18:40 → S3SX 04-23 06:16 → SERHOLD 04-23 06:16
PROVIDERS: Physician Assistant; Student in an Organized Health Care Education/Training Program; Admitting Provider Student in an Organized Health Care Education/Training Program; Emergency Provider Emergency Medicine; PCP Physician Assistant; Visit Provider Internal Medicine Critical Care Medicine
DX: C34.90 Malignant neoplasm of unspecified part of unspecified bronchus or lung (principal); J91.0 Malignant pleural effusion; J18.9 Pneumonia, unspecified organism; Z51.5 Encounter for palliative care; R79.1 Abnormal coagulation profile; D62 Acute posthemorrhagic anemia
CPT/HCPCS: 36415; 71275; 80048; 82150; 82945; 83615; 84157; 85014; 85018; 85025; 85610; 85730; 86850; 86900; 86901; 86923; 87070; 87075; 87205; 89051; 99285; A4649; G0378; J0456; J0696; J7050; P9016; Q9967; A9270

== ENCOUNTER 2025-04-26 12:57 | Outpatient (RCR) | payer MEDICAID, SELFPAY | END 2025-05-03 23:59 | disposition home or self-care (01) | LOC: SCTC 12:57 | PROVIDERS: PCP Physician Assistant; Referring Provider Physician Assistant; Visit Provider Radiology Therapeutic Radiology | DX: C79.51 Secondary malignant neoplasm of bone (principal); C80.1 Malignant (primary) neoplasm, unspecified; J90 Pleural effusion, not elsewhere classified; R63.4 Abnormal weight loss; Z68.22 Body mass index [BMI] 22.0-22.9, adult; F10.10 Alcohol abuse, uncomplicated; Z71.41 Alcohol abuse counseling and surveillance of alcoholic | CPT/HCPCS: 99212; 99213; G0463 ==

== ENCOUNTER 2025-04-30 14:56 | Inpatient (IN) | payer MEDICAID, SELFPAY ==
[2025-04-30] VITALS (20 sets, daily range): BP systolic 102–125; BP diastolic 67–79; PULSE 102–120; RESP 16–88; TEMP 36.4–38.1; O2SAT 92–100; BMI 23.2
--- NOTE | 2025-04-30 15:21 | PD.EDRME ---
Rapid Medical Screening Exam RME Arrival date/time: 04/30/25 14:56 49-year-old male with a history of pleural effusions presents to the emergency room with a chief complaint of a low hemoglobin level. Patient was sent over by the cancer treatment center for level 4.9. I have greeted and performed a focused initial assessment of this patient. A comprehensive ED assessment and evaluation of the patient, analysis of all test results, and completion of the medical decision making process will be conducted by additional ED providers. Chief Complaint: Nausea/Vomiting/Diarrhea Time Seen by Provider: 04/30/25 15:18 Vital signs: Vital Signs Temperature 99.5 F 04/30/25 15:10 Pulse Rate 107 H 04/30/25 15:10 Respiratory Rate 20 04/30/25 15:10 Blood Pressure 102/67 04/30/25 15:10 Pulse Oximetry (%) 97 04/30/25 15:10 Oxygen Delivery Method Room Air 04/30/25 15:10 Vital signs reviewed by provider: Yes
[2025-04-30 15:53] LABS: Basophils # (Auto) 0.1 Thou/mm3 (0.0-0.2); Basophils % (Auto) 1 % (0-2.5); Eosinophils # (Auto) 0.1 Thou/mm3 (0.0-0.5); Eosinophils % (Auto) 1 % (0-10); Immature Granulocytes % (Auto) 8 % (0-0); Lymphocytes # (Auto) 2.4 Thou/mm3 (1.0-4.8); Lymphocytes % (Auto) 23 % (10-50); Mean Corpuscular Hemoglobin 27.9 pg (25.0-35.0); Mean Corpuscular Volume 82 fL (80-100); Monocytes # (Auto) 0.8 Thou/mm3 (0.0-0.8); Monocytes % (Auto) 8 % (0-12); Neutrophils # (Auto) 6.1 Thou/mm3 (1.8-7.7); Neutrophils % (Auto) 59 % (37-80); Nucleated Red Blood Cell # 1.15 Thou/mm3 (0.00-0.00); Nucleated Red Blood Cell % 11 /100 WBC (0); RDW Standard Deviation 50.4 fL (35.1-43.9); Red Blood Count 1.72 Miln/mm3 (4.50-5.90); White Blood Count 10.3 Thou/mm3 (3.8-10.6)
[2025-04-30 16:05] LABS: Hematocrit 14.1 % (41.0-53.0); Hemoglobin 4.8 g/dL (13.5-16.0)
[2025-04-30 16:06] LABS: Platelet Count 71 Thou/mm3 (140-440)
[2025-04-30 16:07] LABS: Alanine Aminotransferase 11 U/L (10-49); Albumin, Serum 3.9 gm/dL (3.5-5.0); Albumin/Globulin Ratio 1.7 (1.2-2.2); Alkaline Phosphatase 649 U/L (46-116); Anion Gap 9 (7-16); Aspartate Amino Transferase 23 U/L (0-34); BUN/Creatinine Ratio 18 Ratio (12-20); Blood Urea Nitrogen 11 mg/dL (9-23); Calcium 8.4 mg/dL (8.3-10.6); Calcium (Corrected) 8.5 mg/dL (8.5-10.1); Carbon Dioxide 25.4 mMol/L (20.0-31.0); Chloride 101 mMol/L (98-107); Creatinine (Component) 0.6 mg/dL (0.6-1.3); Globulin 2.3 gm/dL (2.3-3.5); Glucose 119 mg/dL (74-106); INR 1.4 (0.9-1.3); Osmolality,Calculated 270 (275-295); Partial Thromboplastin Time 39.3 Seconds (22.0-36.0); Potassium 4.5 mMol/L (3.4-5.1); Prothrombin Time 15.1 Seconds (9.0-12.2); Sodium 135 mMol/L (136-145); Total Protein 6.2 gm/dL (5.7-8.2); eGFR > 60 See Note
--- NOTE | 2025-04-30 16:36 | EDNOTE_ITS ---
<Statement entered by [place] Singh MD - 05/01/25 18:10> As co-signing physician, I was present and available for consult prn. I concur with the plan and care as documented by the midlevel provider. Nausea/Vomit./Diarrhea-RME/HPI General Chief complaint: Nausea/Vomiting/Diarrhea Stated complaint: Vomiting today Time Seen by Provider: 04/30/25 15:18 Arrival date/time: 04/30/25 14:56 RME / HPI RME / HPI Narrative: 49-year-old male with a history of pleural effusions presents to the emergency room with a chief complaint of a low hemoglobin level. Patient was sent over by the cancer treatment center for level 4.9. Patient was recently diagnosed for malignant pleural effusion. He was admitted here 5 days ago for removal of Pleurx. Patient received blood transfusion 1 unit during that time. Was di scharged on a hemoglobin of 8.0 Related Data Home Medications ?Medication ?Instructions ?Recorded ?Confirmed acetaminophen 650 mg 650 mg PO Q8H PRN pain 03/2305/01/25 tablet,extended release (8 Hour Pain Reliever) Previous Rx's ?Medication ?Instructions ?Recorded tramadol 50 mg tablet 50 mg PO Q6H PRN pain #30 ta bs 02/05/25 Allergies Allergy/AdvReac Type Severity Reaction Status Date / Time Penicillins Allergy Intermediate RASH Verified 04/30/25 15:02 Review of Systems Review of Systems Narrative Review of Systems: Review of system reviewed and within normal limits except mentioned in HPI ED Exam Narrative Physical exam: VITAL SIGNS: Reviewed. GENERAL APPEARANCE: Alert and interactive, follows commands, no acute distress, HEAD AND FACE: Non-traumatic. ENT: PERRL, pale conjunctiva, eyelid no trauma, Mucous membrane moist. NECK: Supple, nontender, no nuchal rigidity. CHEST: No tenderness, no crepitus, no paradoxical movement, no retractions. LUNGS: Clear, well ventilated, symmetric, no rales, no wheezing, no ronchi, no stridor, good breath sounds bilaterally. HEART: Regular rate, regular rhythm, no murmur, no gallops. ABDOMEN: Soft, positive bowel sounds, nondistended, no guarding, nontender, no rebound, no masses, RECTAL: Deferred. GENITAL: Deferred. NEUROLOGICAL: Gross motor function intact sensory function intact, Appropriate for age. MUSCULOSKELETAL: low back nontender, full range of motion. EXTREMITIES: Nontender, full range of motion. SKIN: Color pale, dry, no rash, no lacerations, no abrasions, no contusions. LYMPHATICS: Deferred. Course Quality Measures none Orders Category Date Time Status Patient Condition Routine Admission 04/30/25 21:[address] in Observation Status Routine Admission 04/30/25 21:46 Active Activity as Tolerated Routine Care 04/30/25 21:48 Ordered COVID-19 Screening Questionnaire NOW Care 04/30/25 21:[address] Screening NOW Care 04/30/25 18:46 Active Continuous Pulse Oximetry NOW Care 04/30/25 21:45 Completed Decision to Admit X1 Care 04/30/25 21:20 Completed Notify provider NEEDED Care 04/30/25 21:45 Active Obtain weight X1 Care 04/30/25 21:45 Active Post Transfusion H&H X1 Care 04/30/25 21:51 Completed Sequential Compression Device QSHIFT Care 04/30/25 21:51 Active Strict Intake and Output Routine Care 04/30/25 21:47 Ordered Transfuse,blood/blood products ONCE Care 04/30/25 16:32 Active Diet Regular Diet 05/01/[address] abdomen pelvis w con Stat Exams 04/30/25 18:46 Completed XR chest 1V Stat Exams 04/30/25 16:53 Completed CBC AM DRAW Lab 05/01/25 05:30 Completed CBC AM DRAW Lab 05/02/25 05:00 Ordered CBC AM DRAW Lab 05/03/25 05:00 Ordered CBC Stat Lab 04/30/25 15:34 Completed CMP [Comprehensive Metabolic Panel] Stat Lab 04/30/25 15:34 Completed Comprehensive Metabolic Panel AM DRAW Lab 05/01/25 05:30 Completed Comprehensive Metabolic Panel AM DRAW Lab 05/02/25 05:00 Ordered Comprehensive Metabolic Panel AM DRAW Lab 05/03/25 05:00 Ordered Magnesium AM DRAW Lab 05/01/25 05:30 Completed Magnesium AM DRAW Lab 05/02/25 05:00 Ordered Magnesium AM DRAW Lab 05/03/25 05:00 Ordered Occult Blood, Stool (LAB) Stat Lab 04/30/25 18:00 Completed PT [Prothrombin Time with INR] Stat Lab 04/30/25 15:34 Completed PTT [Partial Thromboplastin Time] Stat Lab 04/30/25 15:34 Completed Partial Thromboplastin Time AM DRAW Lab 05/01/25 05:30 Completed Phosphorous AM DRAW Lab 05/01/25 05:30 Completed Phosphorous AM DRAW Lab 05/02/25 05:00 Ordered Phosphorous AM DRAW Lab 05/03/25 05:00 Ordered Prothrombin Time with INR AM DRAW Lab 05/01/25 05:30 Completed Type and Screen Stat Lab 04/30/25 15:34 Completed Urinalysis Routine Lab 05/01/25 00:05 Completed prbc [Red Blood Cells] Stat Lab 04/30/25 15:34 Completed Acetaminophen Tab [Tylenol ES Tab] Med 04/30/25 21:20 Discontinued 500 mg PO X1 ONE Acetaminophen Tab [Tylenol Tab] Med 04/30/25 21:45 Active 650 mg PO Q6H PRN Azithromycin Inj [Zithromax Inj] 500 mg Med 04/30/25 21:14 Discontinued Sodium Chloride 0.9% 250 ml [Ns] 250 ml IV X1 Famotidine [Pepcid] Med 05/01/25 09:00 Active 20 mg PO BID HYDROcodone*/APAP 5/325 [[place] 5/325] Med 04/30/25 21:45 Active 1 tab PO Q6HR PRN Morphine Inj Med 04/30/25 16:47 Discontinued 4 mg IVP X1 ONE Morphine Inj Med 04/30/25 16:53 Discontinued 4 mg IVP X1 ONE Ondansetron Inj [Zofran Inj] Med 04/30/25 21:45 Active 4 mg IVP Q6H PRN Ondansetron Inj [Zofran Inj] Med 04/30/25 16:47 Discontinued 4 mg IVP X1 ONE Ondansetron Inj [Zofran Inj] Med 04/30/25 16:53 Discontinued 4 mg IVP X1 ONE Senna [Senokot] Med 05/01/25 09:00 Active 1 tab PO QDAY cefTRIAXone/D5w 1gm IV premix [Rocephin/D5w 1gm IV Med 04/30/25 21:13 Discontinued premix] 1 gm in 50 ml IV X1 Code Status Routine Oth 04/30/25 21:45 Ordered Oxygen Delivery PRN RT 04/30/25 21:45 Active Vital Signs Vital signs: Vital Signs Temperature 99.5 F 04/30/25 15:10 Pulse Rate 107 H 06/27/25 15:10 Respiratory Rate 20 04/30/25 15:10 Blood Pressure 102/67 04/30/25 15:10 Pulse Oximetry (%) 97 04/30/25 15:10 Oxygen Delivery Method Room Air 04/30/25 15:10 Nausea/Vomiting/Diarrhea [facility] Narrative MDM Narrative:: 49-year-old male with a history of pleural effusions presents to the emergency room with a chief complaint of a low hemoglobin level. Patient was sent over by the cancer treatment center for level 4.9. Patient was recently diagnosed for malignant pleural effusion. He was admitted here 5 days ago for removal of Pleurx. Patient received blood transfusion 1 unit during that time. Was discharged on a hemoglobin of 8.0 Patient received 3 units of packed RBC, chest x-ray showed pneumonia, and bilateral pleural effusion. I did a rectal exam and it was negative for occult blood. Patient received IV ceftriaxone and IV Zithromax also. CT scan of the abdomen and pelvis showed Bilateral pneumonia. Large bilateral pleural effusions. Pleurx catheter on the right satisfactory position No focal gastrointestinal bleeding site Normal appendix Urinary bladder wall thickening up to 6 mm, consider cystitis Case discussed with hospitalist, and admitted the patient. Patient data External records reviewed:: None Clinical information provided by:: patient Social determinants that could affect healthcare access:: none Patient has the following chronic illnesses:: Malignant pleural effusion pending source of the malignancy How is presenting disease/condition affected by chronic disease/condition?: exacerbated by Evaluation data The following diagnostics were reviewed and interpreted by me:: lab results and radiology exam(s) Lab and/or radiology exams considered but not ordered:: None Interpretation Summary: See results [facility] Medications / Prescriptions Medications / Prescriptions considered but not ordered:: None Medication administrations:: Medication Administration History Acetaminophen (Acetaminophen 325 Mg Tablet) 650 mg PO Q6H PRN PRN Reason: Fever >100.3 or Pain 1-3 Stop: 05/30/25 21:44 Hydrocodone Bitart/Acetaminophen (Hydrocodone/Apap 5/325 Tablet) 1 tab PO Q6HR PRN PRN Reason: PAIN SCALE 4-10(Mod-Sev Stop: 05/05/25 21:44 Last Admin: 05/01/25 04:48 Dose: 1 tab Documented By: Famotidine (Famotidine 20 Mg Tablet) 20 mg PO BID [facility] Stop: 05/31/25 08:59 Last Admin: 05/01/25 08:24 Dose: 20 mg Documented By: KISHOR Azithromycin 500 mg/ Sodium (Chloride) 250 mls @ 250 mls/hr IV QDAY JUAN JOSE Stop: 05/02/25 09:00 Last Admin: 05/01/25 09:51 Dose: 250 mls/hr Documented By: KISHOR Cefepime HCl 2 gm/ Sodium (Chloride) 50 mls @ 100 mls/hr IV Q8HR [facility]; Protocol Stop: 05/08/25 11:15 Ondansetron HCl (Ondansetron Inj 2 Mg/Ml Inj 2 Ml) 4 mg IVP Q6H PRN; Protocol PRN Reason: NAUSEA OR VOMITING Stop: 05/30/25 21:44 Sennosides (Senna Tablet) 1 tab PO QDAY [facility]; Protocol Stop: 05/31/25 08:59 Last Admin: 05/01/25 08:24 Dose: 1 tab Documented By: KISHOR Discontinued Medications Acetaminophen (Acetaminophen 500 Mg Tablet) 500 mg PO X1 ONE Stop: 04/30/25 21:21 Last Admin: 04/30/25 22:01 Dose: 500 mg Documented By: EULALIO Ceftriaxone Sodium/Dextrose (Rocephin/D5w 1gm Iv Premix) 1 gm in 50 mls @ 100 mls/hr IV X1 ONE Stop: 04/30/25 21:42 Last Infusion: 04/30/25 23:03 Dose: Infused Documented By: Admin: 04/30/25 22:00 Dose: 100 mls/hr Documented By: EULALIO Azithromycin 500 mg/ Sodium (Chloride) 250 mls @ 250 mls/hr IV X1 ONE Stop: 04/30/25 22:13 Last Infusion: 04/30/25 23:43 Dose: Infused Documented By: Admin: 04/30/25 22:36 Dose: 250 mls/hr Documented By: EULALIO Ceftriaxone Sodium/Dextrose (Rocephin/D5w 1gm Iv Premix) 1 gm in 50 mls @ 100 mls/hr IV QDAY [facility] Stop: 05/08/25 21:59 Morphine Sulfate (Morphine Sulf Inj 10 Mg/Ml Vial) 4 mg IVP X1 ONE Stop: 04/30/25 16:48 Last Admin: 04/30/25 16:58 Dose: 4 mg Documented By: DB Morphine Sulfate (Morphine Sulf Inj 10 Mg/Ml Vial) 4 mg IVP X1 ONE Stop: 04/30/25 16:54 Last Admin: 04/30/25 17:03 Dose: Not Given Documented By: RANULFO Non-Admin Reason: Duplicate Medication on eMAR Ondansetron HCl (Ondansetron Inj 2 Mg/Ml Inj 2 Ml) 4 mg IVP X1 ONE; Protocol Stop: 04/30/25 16:48 Last Admin: 04/30/25 16:58 Dose: 4 mg Documented By: DB Ondansetron HCl (Ondansetron Inj 2 Mg/Ml Inj 2 Ml) 4 mg IVP X1 ONE; Protocol Stop: 04/30/25 16:54 Last Admin: 04/30/25 17:03 Dose: Not Given Documented By: RANULFO Non-Admin Reason: Duplicate Medication on eMAR Sodium Chloride (Sodium Chloride Rt 10% 15 Ml Nebu) 5 ml INH X1 ONE Stop: 05/01/25 00:09 Packed RBC x 3 units, Zithromax IV and ceftriaxone IV, patient was also given morphine Consultations Consultation(s) initiated? (list below): No Diagnosis Nausea Differential Diagnosis: other ( anemia, malignant pleural effusion) Most likely diagnosis given after review of the tests above:: Anemia, severe, malignant pleural effusion, pneumonia Admission Indicated Admission indicated?: indicated Admission Request Was there a request for admission?: Yes Admission Attestation Admission request attestation: Discussed case with [Dr. Monahan] from Hospitalist service regarding admission. Discussed patients ED course, exam findings, labs, and radiology results. The Hospitalist [agrees,] to accept the patient for admission. Disposition Plan Disposition Plan: Admit Discharge Plan Plan Patient Disposition: Admit Acute Care w/in Hospital Problem List Clinical Impression: Anemia, Pneumonia
--- NOTE | 2025-04-30 16:53 | XR_ITS ---
Examination: AP chest single view Technique : AP portable upright chest single view Date and time: April 30, 2025, 1701 hours Comparison April 20, 2025 INDICATIONS: Chest pain and vomiting today. FINDINGS: Right Pleurx catheter satisfactory position Bilateral pneumonia, extensive right lung Poorly visualized) Right Port-A-Cath tip right atrium IMPRESSION: Right Pleurx catheter satisfactory position Bilateral pneumonia, extensive right lung
[2025-04-30 16:56] LABS: Slide Review Platelets confirmed
[2025-04-30] MEDS: ONDANSETRON INJ 2 MG/ML INJ 2 ML 4 MG IVP (16:58)
[2025-04-30] MEDS: MORPHINE SULF INJ 10 MG/ML VIAL 4 MG IVP (16:58)
[2025-04-30 17:01] LABS: Band Neutrophils (Manual) 5 % (0-6); Eosinophils (Manual) 1 % (0-4); Lymphocytes (Manual) 16 % (20-44); Metamyelocytes (Manual) 1 % (0-0); Monocytes (Manual) 3 % (2-9); Neutrophils (Manual) 74 % (50-70)
--- NOTE | 2025-04-30 18:46 | XR_ITS ---
Examination: CT abdomen with intravenous contrast CT pelvis with intravenous contrast 2-D coronal reconstructions 2-D sagittal reconstructions Date and time of exam:April 30, 2025, 2018 hours Comparison February 02, 2025 INDICATIONS: Anemia, diagnosis gastrointestinal bleeding today. CTDI: vol (mGy) 14 DLP: (mGycm) 947 Technique: Multiple axial sections of the abdomen and pelvis have been obtained. 64 slice high-resolution scanner used. 3 mm axial sections have been obtained, post intravenous injection of 60 cc Isovue 370 2-D sagittal, coronal reconstructions obtained. Low dose protocols were performed. One or more of the following dose reduction techniques were used; automated exposure control, adjustment of the mA and/or KV according to patient size, use of iterative reconstruction technique. Findings: Extensive areas of loculated right pleural disease, with Pleurx catheter which actually is in satisfactory position Pneumonia in the visualized right lung Pneumonia left base Moderate to large left pleural effusion No visualized liver or splenic lesion No gallstones No pancreatic or adrenal mass No renal or ureteral calculi, no hydronephrosis Normal appendix Abundant stool in the right colon No obstruction Urinary bladder wall thickening to 6 mm No significant prostatomegaly Diffuse widespread osteoblastic metastatic disease again noted Small fat-containing left inguinal hernia IMPRESSION: Bilateral pneumonia. Large bilateral pleural effusions. Pleurx catheter on the right satisfactory position No focal gastrointestinal bleeding site Normal appendix Urinary bladder wall thickening up to 6 mm, consider cystitis
[2025-04-30 18:47] LABS: OBS Developer Lot # 424; OBS Performed By BOTED; OBS QC OK? Yes; Occult Blood, Stool Negative (Negative)
[2025-04-30] MEDS: cefTRIAXone/D5w 1gm IV premix 1 GM/50 ML BAG IV (22:00)
[2025-04-30] MEDS: ACETAMINOPHEN 500 MG TABLET PO (22:01)
--- NOTE | 2025-04-30 22:03 | ESHP_ITS ---
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 Patient presented to the emergency room via private car with a chief complaint of abnormal lab results after visiting the cancer center. Patient stated he had a follow-up appointment on 04/30/2025, patient unable to tell me if he received chemotherapy or if definitive diagnosis has been established. Patient followed up with labs and subsequently went home, was then called to follow up in the ER because of low blood . Pateint also complaining of diffuse body aches including abdomen and throughout left thorax region. Patient denied chest pain or palpitations. Positive for shortness of breath. Positive for dizziness. Patient complaining of dry cough. Denied fevers. Positive for chills last night. Patient denied hematemesis hemoptysis, melena or hematochezia. ER course Vitals 102/67, heart rate 107, respiratory 20, T89.5 CBC: Hemoglobin 4.8, hematocrit 14.1, platelets 71 CMP: NA 135, osmolarity 270 (L), alkaline phosphatase 649 Chest x-ray (04/30/2025): Bilateral pneumonia, extensive right lung with right Pleurx catheter Abdomen/pelvis CT: Bilateral pneumonia, large bilateral pleural effusion with Pleurx catheter, normal appendix, urinary bladder wall thickening 6 mm consider cystitis Medication: Ondansetron, morphine, acetaminophen ceftriaxone and azithromycin Patient is being admitted on 05/01/2025 for observations for acute on chronic normocytic anemia. 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 NO Hoarseness, NO sore throat, NO swollen neck. Cardiac: NO Palpitations, NO dyspnea on exertion, NO orthopnea, NO paroxysmal nocturnal dyspnea, NO edema Respiratory: Yes Shortness of Breath, NO Wheezing, NO Cough, NO Sputum, NO hemoptysis GI:NO appetite, NO nausea, NO vomiting, NO dysphagia, NO changes in bowel frequency, NO stool color, NO diarrhea, NO constipation, NO hemetemesis, NO hemorrhoids, NO melena, NO hematechezia, NO abdominal pain, NO jaundice Renal: NO frequency, NO hesitancy, NO urgency, NO hematuria, NO nocturia, NO incontinence MSK: NO muscle weakness, NO gout, NO arthritis, NO muscle stiffness Neuro: NO headaches, NO tremors, NO weakness, NO paralysis, NO seizures, NO loss of consciousness, NO numbness. Hem: NO anemia, NO easy bruising/bleeding, NO petechiae, NO purpura Endo: NO heat/cold intolerance, NO excessive sweating, NO polyuria, NO polydipsia, NO polyphagia, NO thyroid problems, NO diabetes Pysch: NO mood, NO anxiety, NO depression Exam Vital Signs Temp Pulse Resp BP Pulse Ox O2 Del Method O2 Flow Rate 100 F 115 H 18 118/73 95 Room Air 3 04/30/25 22:01 04/30/25 20:51 04/30/25 20:51 04/30/25 20:51 04/30/25 20:51 04/30/25 18:15 04/30/25 20:51 Narrative Exam General Appearance: Alert & Oriented X3, well-nourished male who is lying in bed in no acute distress HEENT: Skull symmetrical and atraumatic. Conjunctivae pale pink and moist. Pupils equal, round, reactive to light and accommodation (PERRL). External ear without lesion or discharge. Straight, nares patient, mucosa pink, no discharge. Cardio: Tachy Rate and Rhythm with S1 and S2 heart sounds. No murmurs or extra heart sounds auscultated. No bruits on carotid auscultation. No peripheral edema or cyanosis. Lungs: Symmetric with good expansion. Back tenderness. Breath sounds vesicular without crackles, wheezing or rhonchi Abdomen: Non-tender, Non-distended, Normal Reactive Bowel Sounds Neuro: Alert, cooperative, oriented to person, place, and time. Speech clear. CN grossly intact. Upper motor strength 5/5 and Lower motor strength 5/5. Sensation intact. Results: Labs 04/30/25 15:34 04/30/25 15:34 Labs: Short CBC 04/30/25 Range/Units 15:34 WBC 10.3 (3.8-10.6) Thou/mm3 Hgb 4.8 L* (13.5-16.0) g/dL Hct 14.1 L* (41.0-53.0) % Plt Count 71 L (140-440) Thou/mm3 BMP 04/30/25 15:34 Sodium 135 L Potassium 4.5 Chloride 101 Carbon Dioxide 25.4 BUN 11 Creatinine 0.6 Glucose 119 H Calcium 8.4 Liver Function 04/30/25 Range/Units 15:34 Total Bilirubin 1.0 (0.3-1.2) mg/dL AST 23 (0-34) U/L ALT 11 (10-49) U/L Alkaline Phosphatase 649 H (46-116) U/L Albumin 3.9 (3.5-5.0) gm/dL Quality Measures Quality Measures VTE prophylaxis (Compression Device ) Medications Home Medications and Allergies Home Medications ?Medication ?Instructions ?Recorded ?Confirmed ?Type acetaminophen 650 mg 650 mg PO Q8H PRN pain 03/2304/22/25 History tablet,extended release (8 Hour Pain Reliever) Allergies Allergy/AdvReac Type Severity Reaction Status Date / Time Penicillins Allergy Intermediate RASH Verified 04/30/25 15:02 Visit Medications Acetaminophen (Acetaminophen 325 Mg Tablet) 650 mg PO Q6H PRN PRN Reason: Fever >100.3 or Pain 1-3 Stop: 05/30/25 21:44 Hydrocodone Bitart/Acetaminophen (Hydrocodone/Apap 5/325 Tablet) 1 tab PO Q6HR PRN PRN Reason: PAIN SCALE 4-10(Mod-Sev Stop: 05/05/25 21:44 Famotidine (Famotidine 20 Mg Tablet) 20 mg PO BID JUAN JOSE Stop: 05/31/25 08:59 Azithromycin 500 mg/ Sodium (Chloride) 250 mls @ 250 mls/hr IV X1 ONE Stop: 04/30/25 22:13 Ondansetron HCl (Ondansetron Inj 2 Mg/Ml Inj 2 Ml) 4 mg IVP Q6H PRN; Protocol PRN Reason: NAUSEA OR VOMITING Stop: 05/30/25 21:44 Sennosides (Senna Tablet) 1 tab PO QDAY JUAN JOSE; Protocol Stop: 05/31/25 08:59 Discontinued Medications Acetaminophen (Acetaminophen 500 Mg Tablet) 500 mg PO X1 ONE Stop: 04/30/25 21:21 Last Admin: 04/30/25 22:01 Dose: 500 mg Ceftriaxone Sodium/Dextrose (Rocephin/D5w 1gm Iv Premix) 1 gm in 50 mls @ 100 mls/hr IV X1 ONE Stop: 04/30/25 21:42 Last Admin: 04/30/25 22:00 Dose: 100 mls/hr Morphine Sulfate (Morphine Sulf Inj 10 Mg/Ml Vial) 4 mg IVP X1 ONE Stop: 04/30/25 16:48 Last Admin: 04/30/25 16:58 Dose: 4 mg Morphine Sulfate (Morphine Sulf Inj 10 Mg/Ml Vial) 4 mg IVP X1 ONE Stop: 04/30/25 16:54 Last Admin: 04/30/25 17:03 Dose: Not Given Ondansetron HCl (Ondansetron Inj 2 Mg/Ml Inj 2 Ml) 4 mg IVP X1 ONE; Protocol Stop: 04/30/25 16:48 Last Admin: 04/30/25 16:58 Dose: 4 mg Ondansetron HCl (Ondansetron Inj 2 Mg/Ml Inj 2 Ml) 4 mg IVP X1 ONE; Protocol Stop: 04/30/25 16:54 Last Admin: 04/30/25 17:03 Dose: Not Given Assessment & Plan Plan Patient is a 49-year-old male observations with past medical history of malignancy suspected of upper GI versus pancreaticobiliary based on pleural fluid pathology report (02/03/2025), likely metastatic pulmonary nodules, widespread osteoblastic lesions, now s/p pleurx catheter s/p, port placement 03/23, and normocytic anemia. Patient admitted on 05/01/2025 for acute on chronic anemia. #Acute on chronic normocytic anemia #Acute on Chronic Blood Loss Patient denied viv blood loss. Denied melena or hematochezia. Denied hematemesis or hemoptysis. Unclear if patient started chemotherapy. Acute on chronic anemia likely secondary to malignancy. Occult Negative. No viv bleeding Diagnostics Hemoglobin 4.9, hematocrit 14.8, MCV 84 Occult blood negative Plan -2 units of PRBC transfused now -Post transfusion hemoglobin hematocrit -Iron, Folate, and B12 - Oxygen as needed #Large bilateral pleural effusion status post R. 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 Patient complaining of shortness of breath likely in the setting of the pleural effusion, cough, and upon admission patient developed a fever 100.6 Diagnostics CA [id number] (H) Chest x-ray: Bilateral pneumonia extensive right lung, right upper pleural catheter Abdomen pelvis CT: Bilateral pneumonia, large bilateral pleural effusion. Urinary bladder wall thickening consider cystitis. Diffuse widespread osteoblastic metastatic disease Plan -Ceftriaxone (05/01/2025) -Azithromycin (05/01/2025) -Consider repeat thoracentesis, consider Pul-Crit consult -Influenza Rapid -Sputum Culture -MRSA Screen #Mild hyponatremia hypoosmolar Mild hyponatremia on admission sodium 135. Plan -Continue to monitor #Thrombocytopenia Patient has a past medical history of malignancy unknown etiology. No viv bleeding noted. Occult blood test negative. UA negative. Thrombocytopenia likely secondary to malignancy. Plan -Continue to monitor for viv bleeding -Follow platelets a.m. -Compression device #Small fat-containing left inguinal hernia Health Maintenance: Disp: Pt is currently admitted to floors for further management of acute on chronic blood loss, awaiting blood transfusion and repeat Hgb & Hct. FEN: Diet Regular DVT: Compression Device Code: Full code - The patient's plan was discussed with attending Dr. Dr. Konrad Cain MD PGY1 Internal Medicine Attending Provider Attestation/Addendum 49-year-old male patient with metastatic cancer unknown primary, bilateral malignant pleural effusions with Pleurx catheter. The patient was admitted for dizziness weakness, shortness of breath, minimally productive cough and no hemoptysis. The patient has severe anemia and pancytopenia. Currently receiving blood transfusion. Patient was started on empiric antibiotic treatment IV. I discussed with and supervised the resident physician who took care of this patient. I agree with the assessment and plan as above.
[2025-04-30] MEDS: AZITHROMYCIN INJ 500 MG in SODIUM CHLORIDE 0.9% 250 ML 250 ML 250 MG IV (22:36)
[2025-05-01] VITALS (16 sets, daily range): BP systolic 93–145; BP diastolic 65–89; PULSE 89–118; RESP 18–24; TEMP 36.4–37.3; O2SAT 93–98; BMI 23.3
[2025-05-01 01:02] LABS: Collection Type, Urine Clean Catch; Squamous Epithelial Cell,Urine 0 /hpf (0-5)
[2025-05-01 01:09] LABS: Bilirubin,Urine Negative (Negative); Blood,Urine Negative (Negative); Clarity,Urine Clear (Clear/Hazy); Color,Urine Lt-Yellow (Lt Yel-Yel); Glucose, Urine Negative (Negative); Ketones,Urine Negative (Negative); Leukocyte Esterase,Urine Negative (Negative); Nitrite,Urine Negative (Negative); PH,Urine 6.5 (5.0-7.0); Protein,Urine Negative (Neg - Trace); RBC,Urine 1 /hpf (0-3); Urobilinogen,Urine Negative mg/dL (0.0-1.0); WBC,Urine 1 /hpf (0-5)
[2025-05-01 01:14] LABS: Specific Gravity,Urine <= 1.005 (1.001-1.035)
[2025-05-01 02:18] LABS: Influenza A Ag Negative; Influenza B Ag Negative
--- NOTE | 2025-05-01 02:55 | PC.NURSE ---
Patient completed 2 units of PRBCs at 0243. Per Dr. Cain, deanna to wait for 5AM blood draws, no need for post H/H.
[2025-05-01] MEDS: HYDROcodone/APAP 5/325 TABLET 1 TAB PO ×3 (04:48→18:21)
[2025-05-01 06:38] LABS: Basophils # (Auto) 0.1 Thou/mm3 (0.0-0.2); Basophils % (Auto) 1 % (0-2.5); Eosinophils # (Auto) 0.1 Thou/mm3 (0.0-0.5); Eosinophils % (Auto) 1 % (0-10); Hematocrit 25.5 % (41.0-53.0); Immature Granulocytes % (Auto) 8 % (0-0); Immature Granulocytes Auto 0.58 Thou/mm3 (0.00-0.00); Lymphocytes # (Auto) 1.5 Thou/mm3 (1.0-4.8); Lymphocytes % (Auto) 21 % (10-50); Mean Corpuscular HGB Conc 33.7 g/dl (31.0-37.0); Mean Corpuscular Hemoglobin 28.4 pg (25.0-35.0); Mean Corpuscular Volume 84 fL (80-100); Monocytes # (Auto) 0.6 Thou/mm3 (0.0-0.8); Monocytes % (Auto) 8 % (0-12); Neutrophils # (Auto) 4.4 Thou/mm3 (1.8-7.7); Neutrophils % (Auto) 60 % (37-80); Nucleated Red Blood Cell # 0.61 Thou/mm3 (0.00-0.00); Nucleated Red Blood Cell % 9 /100 WBC (0); Red Blood Count 3.03 Miln/mm3 (4.50-5.90); White Blood Count 7.2 Thou/mm3 (3.8-10.6)
[2025-05-01 06:46] LABS: Hemoglobin 8.6 g/dL (13.5-16.0); Platelet Count 52 Thou/mm3 (140-440)
[2025-05-01 06:56] LABS: Glucose Estimated Average 97 mg/dL (80-131); Iron 90 mcg/dL (65-175); Percent Iron Saturation 50 % (20-55); Total Iron Binding Capacity 177 mcg/dL (250-425); Unsaturated Iron Binding 87 (225-295)
[2025-05-01 06:58] LABS: INR 1.4 (0.9-1.3); Partial Thromboplastin Time 41.9 Seconds (22.0-36.0); Prothrombin Time 14.5 Seconds (9.0-12.2)
[2025-05-01 07:07] LABS: Slide Review Platelets confirmed
[2025-05-01 07:18] LABS: Alanine Aminotransferase 10 U/L (10-49); Albumin, Serum 3.3 gm/dL (3.5-5.0); Albumin/Globulin Ratio 1.5 (1.2-2.2); Alkaline Phosphatase 582 U/L (46-116); Anion Gap 10 (7-16); Aspartate Amino Transferase 19 U/L (0-34); BUN/Creatinine Ratio 12 Ratio (12-20); Bilirubin,Total 1.1 mg/dL (0.3-1.2); Blood Urea Nitrogen 7 mg/dL (9-23); Calcium 8.5 mg/dL (8.3-10.6); Calcium (Corrected) 9.1 mg/dL (8.5-10.1); Carbon Dioxide 25.1 mMol/L (20.0-31.0); Chloride 102 mMol/L (98-107); Creatinine (Component) 0.6 mg/dL (0.6-1.3); Estimated Creatinine Clearance 132.9 mL/min (>60); Globulin 2.2 gm/dL (2.3-3.5); Glucose 107 mg/dL (74-106); Magnesium 1.9 mg/dL (1.6-2.6); Osmolality,Calculated 271 (275-295); Phosphorous 3.6 mg/dL (2.4-5.1); Sodium 137 mMol/L (136-145); Total Protein 5.5 gm/dL (5.7-8.2); eGFR > 60 See Note
[2025-05-01] MEDS: FAMOTIDINE 20 MG TABLET PO ×2 (08:24→21:04)
[2025-05-01] MEDS: SENNA TABLET 1 TAB PO (08:24)
[2025-05-01] MEDS: AZITHROMYCIN INJ 500 MG in SODIUM CHLORIDE 0.9% 250 ML 250 ML 250 MG IV (09:51)
[2025-05-01] MEDS: CEFEPIME INJ 2 GM in SODIUM CHLORIDE 0.9% (Popper) 50 ML IV ×2 (12:00→21:04)
--- NOTE | 2025-05-01 14:55 | ESPR_ITS ---
<Statement entered by Kenyetta Mohamud MD - 05/03/25 16:37> I Kenyetta Mohamud MD reviewed the note and agree with the resident's assessment & plan with exceptions as below. I have personally reviewed labs, imaging, home meds/prior records, examined the patient, formulated and discussed management plan with the IM team. A 49-year-old male with unknown metastatic GI malignancy recently discovered admitted for severe anemia, thrombocytopenia requiring transfusions. Patient also noted to have infiltrates on CXR with cough, will treat empirically with cefepime and azithromycin. Patient has already scheduled PET scan and bone marrow biopsy with oncology. Documentation for date of: 05/01/25 Subjective Subjective Interval history: No acute overnight events. Complains of feeling fatigued, dizzy and lightheaded. Denies fever, chills, headaches, chest pain, sob, cough, GI or urinary symptoms. Hemoglobin stable after transfusion. She is currently following with oncology outpatient, has not initiated chemoradiation therapy, currently pending imaging and biopsy which are scheduled for Saturday and Saturday this week at [facility]. Dr. Schwartz was consulted, pending recommendations. Exam Vital Signs Temp Pulse Resp BP Pulse Ox O2 Del Method O2 Flow Rate 97.9 F 97 20 94/65 95 Nasal Cannula 3 05/01/25 12:05/01/25 12:05/01/25 12:05/01/25 12:05/01/25 12:05/01/25 12:05/01/25 12:00 Narrative Exam General Appearance: Alert & Oriented X3, well-nourished male who is lying in bed in no acute distress HEENT: Skull symmetrical and atraumatic. Conjunctivae pale pink and moist. Pupils equal, round, reactive to light and accommodation (PERRL). External ear without lesion or discharge. Straight, nares patient, mucosa pink, no discharge. Cardio: Tachy Rate and Rhythm with S1 and S2 heart sounds. No murmurs or extra heart sounds auscultated. No bruits on carotid auscultation. No peripheral edema or cyanosis. Lungs: Symmetric with good expansion. Back tenderness. Breath sounds vesicular without crackles, wheezing or rhonchi Abdomen: Non-tender, Non-distended, Normal Reactive Bowel Sounds Neuro: Alert, cooperative, oriented to person, place, and time. Speech clear. CN grossly intact. Upper motor strength 5/5 and Lower motor strength 5/5. Sensation intact. Objective Labs 05/01/25 05:30 05/01/25 05:30 Labs: Laboratory Results - last 24 hr 04/30/25 04/30/25 05/01/25 15:34 18:00 00:05 WBC 10.3 RBC 1.72 L* Hgb 4.8 L* Hct 14.1 L* MCV 82 MCH 27.9 MCHC 34.0 RDW Std Deviation 50.4 H Plt Count 71 L Neut % (Auto) 59 Lymph % (Auto) 23 [place] % (Auto) 8 Eos % (Auto) 1 Baso % (Auto) 1 Neut # (Auto) 6.1 Lymph # (Auto) 2.4 [place] # (Auto) 0.8 Eos # (Auto) 0.1 Baso # (Auto) 0.1 Immature Gran # (Auto) 0.80 H Absolute Nucleated RBC 1.15 H Immature Gran % 8 H Neutrophils % (Manual) 74 H Monocytes % (Manual) 3 Eosinophils % (Manual) 1 Metamyelocytes % 1 H Nucleated RBC % 11 H Band Neutrophils 5 Lymphocytes (Manual) 16 L PT 15.1 H INR 1.4 H APTT 39.3 H Sodium 135 L Potassium 4.5 Chloride 101 Carbon Dioxide 25.4 Anion Gap 9 BUN 11 Creatinine 0.6 Estim Creat Clear Calc Not Performed. eGFR > 60 BUN/Creatinine Ratio [address] Glu mg/dL Hemoglobin A1c Calculated Osmolality 270 L Calcium 8.4 Corrected Calcium 8.5 Phosphorus Magnesium Iron TIBC Iron Saturation Unsat Iron Binding Total Bilirubin 1.0 AST 23 ALT 11 Alkaline Phosphatase 649 H Total Protein 6.2 Albumin 3.9 Globulin 2.3 Albumin/Globulin Ratio 1.7 Ur Collection Type Clean Catch Urine Color Lt-Yellow Urine Clarity Clear Urine pH 6.5 Ur Specific [place] <= 1.005 Urine Protein Negative Urine Glucose (UA) Negative Urine Ketones Negative Urine Blood Negative Urine Nitrite Negative Urine Bilirubin Negative Urine Urobilinogen (Auto) Negative Ur Leukocyte Esterase Negative Urine RBC 1 Urine WBC 1 Ur Squamous Epith Cells 0 Urine Bacteria None Stool Occult Blood Negative Influenza A (Rapid) Influenza B (Rapid) Misc Test Result Platelets confirmed Blood Type A Positive Antibody Screen NEGATIVE Crossmatch See Detail Blood Bank Wristband ID Yes 05/01/25 05/01/25 00:55 05:30 WBC 7.2 RBC 3.03 L Hgb 8.6 L D Hct 25.5 L D MCV 84 MCH 28.4 MCHC 33.7 RDW Std Deviation 49.0 H Plt Count 52 L D Neut % (Auto) 60 Lymph % (Auto) 21 [place] % (Auto) 8 Eos % (Auto) 1 Baso % (Auto) 1 Neut # (Auto) 4.4 Lymph # (Auto) 1.5 [place] # (Auto) 0.6 Eos # (Auto) 0.1 Baso # (Auto) 0.1 Immature Gran # (Auto) 0.58 H Absolute Nucleated RBC 0.61 H Immature Gran % 8 H Neutrophils % (Manual) Monocytes % (Manual) Eosinophils % (Manual) Metamyelocytes % Nucleated RBC % 9 H Band Neutrophils Lymphocytes (Manual) PT 14.5 H INR 1.4 H APTT 41.9 H Sodium 137 Potassium 4.0 D Chloride 102 Carbon Dioxide 25.1 Anion Gap 10 BUN 7 L Creatinine 0.6 Estim Creat Clear Calc 132.9 eGFR > 60 BUN/Creatinine Ratio 12 [address]ucose [address] Glu mg/dL 97 Hemoglobin A1c 5.0 Calculated Osmolality 271 L Calcium 8.5 Corrected Calcium 9.1 Phosphorus 3.6 Magnesium 1.9 Iron 90 TIBC 177 L Iron Saturation 50 Unsat Iron Binding 87 L Total Bilirubin 1.1 AST 19 ALT 10 Alkaline Phosphatase 582 H D Total Protein 5.5 L Albumin 3.3 L D Globulin 2.2 L Albumin/Globulin Ratio 1.5 Ur Collection Type Urine Color Urine Clarity Urine pH Ur Specific [place] Urine Protein Urine Glucose (UA) Urine Ketones Urine Blood Urine Nitrite Urine Bilirubin Urine Urobilinogen (Auto) Ur Leukocyte Esterase Urine RBC Urine WBC Ur Squamous Epith Cells Urine Bacteria Stool Occult Blood Influenza A (Rapid) Negative Influenza B (Rapid) Negative Misc Test Result Platelets confirmed Blood Type Antibody Screen Crossmatch Blood Bank Wristband ID Quality Measures Quality Measures none Assessment & Plan Assessment Current Active Medications: Generic Name Dose Route Start Last Admin Trade Name Freq PRN Reason Stop Dose Admin Acetaminophen 650 mg 04/30/25 21:45 Acetaminophen 325 Mg Tablet PO 05/30/25 21:44 Q6H PRN Fever >100.3 or Pain 1-3 Hydrocodone Bitart/Acetaminophen 1 tab 04/30/25 21:45 05/01/25 12:02 Hydrocodone/Apap 5/325 Tablet PO 05/05/25 21:44 1 tab Q6HR PRN Administration PAIN SCALE 4-10(Mod-Sev Famotidine 20 mg 05/01/25 09:00 05/01/25 08:24 Famotidine 20 Mg Tablet PO 05/31/25 08:59 20 mg BID JUAN JOSE Administration Azithromycin 500 mg/ Sodium 250 mls @ 250 mls/hr 05/01/25 09:00 05/01/25 09:51 Chloride IV 05/02/25 09:00 250 mls/hr QDAY JUAN JOSE Administration Cefepime HCl 2 gm/ Sodium 50 mls @ 100 mls/hr 05/01/25 11:16 05/01/25 12:00 Chloride IV 05/08/25 11:15 100 mls/hr Q8HR JUAN JOSE Administration Protocol Ondansetron HCl 4 mg 04/30/25 21:45 Ondansetron Inj 2 Mg/Ml Inj 2 Ml IVP 05/30/25 21:44 Q6H PRN NAUSEA OR VOMITING Protocol Sennosides 1 tab 05/01/25 09:00 05/01/25 08:24 Senna Tablet PO 05/31/25 08:59 1 tab QDAY JUAN JOSE Administration Protocol Plan This is a 49-year-old male with PMHx of upper GI malignancy, currently under the care of Dr. Schwartz and awaiting biopsy results prior to initiating treatment, presenting from cancer center with acute normocytic anemia, Hgb 4.8. Completed 3 units PRBC transfusions, Hgb stable. Currently monitoring hemoglobin, pending recommendations from oncology, Dr. Schwartz. 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 Presenting with hemoglobin of 4.8 with no obvious source of bleeding. Denies dark stool or GI bleed. No signs of internal bleeding on exam. CT abdomen pelvis showed pleural effusion but no hematomas, however there was diffuse widespread osteoblastic lesions. CXR was also negative for bleed. No iron deficiency. Completed 3 units PRBCs, Hgb stable around 8.6. Patient denied viv blood loss. Denied melena or hematochezia. Denied hematemesis or hemoptysis. Unclear if patient started chemotherapy. Acute on chronic anemia likely secondary to malignancy. Occult Negative. No viv bleeding ? Repeat H&H in a.m. ? Transfuse if Hgb less than 7 ? Pending oncology recommendations. ? Consider EPO GEN Large bilateral pleural effusion S/p right pleural catheter Loculated right pleural Bilateral pneumonia, extensive right lung Metastatic GI malignancy Cancer was discovered on admission from when he presented with acute blood loss anemia and was transfused 2 units PRBCs. Complained of shortness of breath on presentation, likely secondary to severe anemia, and pleural effusion plus bilateral pneumonia as seen on CT. Also had mild fever on admission which have since resolved. Negative COVID/influenza. ? Continue CEFTRIAXONE (05/01 to present) ? Continue AZITHROMYCIN (05/01 to present) ? Trending cultures, MRSA screen Mild hyponatremia hypoosmolar Sodium 135 on admission ? Daily labs Small fat-containing left inguinal hernia Seen on CT, currently asymptomatic ? Outpatient follow-up Health maintenance Diet: Regular diet GI prophylaxis: FAMOTIDINE DVT prophylaxis: SCD Antibiotics: CEFTRIAXONE, AZITHROMYCIN CODE STATUS: Full code Disposition: Admitted for anemia requiring transfusion, pending oncology recommendation Case was discussed with attending physician and senior resident. Jamie Alvarado DO PGYI This document was transcribed using voice recognition technology. Minor inaccuracies may be present.
[2025-05-01] MEDS: ONDANSETRON INJ 2 MG/ML INJ 2 ML 4 MG IVP (21:03)
[2025-05-01] MEDS: MORPHINE SULF INJ 10 MG/ML VIAL 2 MG IVP (21:03)
[2025-05-02] VITALS (9 sets, daily range): BP systolic 107–115; BP diastolic 65–82; PULSE 92–115; RESP 20–23; TEMP 36.8–37.3; O2SAT 94–97
[2025-05-02] MEDS: HYDROcodone/APAP 5/325 TABLET 1 TAB PO ×3 (04:11→18:27)
[2025-05-02] MEDS: CEFEPIME INJ 2 GM in SODIUM CHLORIDE 0.9% (Popper) 50 ML IV ×3 (05:34→21:48)
[2025-05-02 06:33] LABS: Basophils # (Auto) 0.1 Thou/mm3 (0.0-0.2); Basophils % (Auto) 1 % (0-2.5); Eosinophils # (Auto) 0.2 Thou/mm3 (0.0-0.5); Eosinophils % (Auto) 3 % (0-10); Hematocrit 24.4 % (41.0-53.0); Immature Granulocytes % (Auto) 8 % (0-0); Immature Granulocytes Auto 0.58 Thou/mm3 (0.00-0.00); Lymphocytes # (Auto) 1.7 Thou/mm3 (1.0-4.8); Lymphocytes % (Auto) 22 % (10-50); Mean Corpuscular HGB Conc 34.4 g/dl (31.0-37.0); Mean Corpuscular Hemoglobin 28.6 pg (25.0-35.0); Mean Corpuscular Volume 83 fL (80-100); Monocytes # (Auto) 0.7 Thou/mm3 (0.0-0.8); Monocytes % (Auto) 8 % (0-12); Neutrophils # (Auto) 4.5 Thou/mm3 (1.8-7.7); Neutrophils % (Auto) 59 % (37-80); Nucleated Red Blood Cell # 0.68 Thou/mm3 (0.00-0.00); Nucleated Red Blood Cell % 9 /100 WBC (0); RDW Standard Deviation 49.8 fL (35.1-43.9); Red Blood Count 2.94 Miln/mm3 (4.50-5.90); White Blood Count 7.7 Thou/mm3 (3.8-10.6)
[2025-05-02 06:37] LABS: Hemoglobin 8.4 g/dL (13.5-16.0); Platelet Count 43 Thou/mm3 (140-440)
[2025-05-02 07:06] LABS: Slide Review Platelets confirmed
[2025-05-02 07:28] LABS: Alanine Aminotransferase 12 U/L (10-49); Albumin, Serum 3.4 gm/dL (3.5-5.0); Albumin/Globulin Ratio 1.4 (1.2-2.2); Alkaline Phosphatase 623 U/L (46-116); Anion Gap 8 (7-16); Aspartate Amino Transferase 21 U/L (0-34); BUN/Creatinine Ratio 12 Ratio (12-20); Bilirubin,Total 1.2 mg/dL (0.3-1.2); Blood Urea Nitrogen 7 mg/dL (9-23); Calcium 8.9 mg/dL (8.3-10.6); Calcium (Corrected) 9.4 mg/dL (8.5-10.1); Chloride 102 mMol/L (98-107); Creatinine (Component) 0.6 mg/dL (0.6-1.3); Estimated Creatinine Clearance 132.9 mL/min (>60); Globulin 2.4 gm/dL (2.3-3.5); Glucose 109 mg/dL (74-106); Magnesium 1.9 mg/dL (1.6-2.6); Osmolality,Calculated 270 (275-295); Phosphorous 3.7 mg/dL (2.4-5.1); Potassium 4.2 mMol/L (3.4-5.1); Sodium 136 mMol/L (136-145); Total Protein 5.8 gm/dL (5.7-8.2); eGFR > 60 See Note
[2025-05-02] MEDS: SENNA TABLET 1 TAB PO (09:03)
[2025-05-02] MEDS: FAMOTIDINE 20 MG TABLET PO ×2 (09:03→20:17)
[2025-05-02] MEDS: AZITHROMYCIN INJ 500 MG in SODIUM CHLORIDE 0.9% 250 ML 250 ML 250 MG IV (09:11)
--- NOTE | 2025-05-02 12:55 | PC.NURSE ---
Patients DC orders put in at 11:55 by Mk Hernandez. Patient and family wants to speak to doctor before signing DC orders. Patients are uzbek speaking so dice dealer is needed. Will continue to monitor patient.
--- NOTE | 2025-05-02 14:22 | PC.NURSE ---
Earlier I was notified patients 02 went down to 83% i went to check on patient. Patient was asleep and had his 02 off his nose. I helped patient put nasal canula back on nose he went back up to 95. I was going to discharge patient. Family is concerned about patient O2 needs. I took patient off O2 will monitor him and see if he sustains with no O2.Will continue to monitor patient.
--- NOTE | 2025-05-02 15:26 | PC.NURSE ---
Patient at rest on 2L stating at 95%. Patient on RA at rest stating at 83%. Patient on RA sitting at bedside stating at 77%. Patient on RA walking at 81%. Put patient back on O2 3L stating at 94%.
--- NOTE | 2025-05-02 16:02 | PC.SS ---
SW completed referral for oxygen therapy through [facility].
--- NOTE | 2025-05-02 16:09 | ESDS_ITS ---
<Statement entered by Kenyetta Mohamud MD - 05/07/25 20:30> I Kenyetta Mohamud MD reviewed the note and agree with the resident's assessment & plan with exceptions as below. I have personally reviewed labs, imaging, home meds/prior records, examined the patient, formulated and discussed management plan with the IM team. Planned Discharge Date 05/02/25 DS: Providers Provider Date of admission: 04/30/25 21:54 Primary care physician: Kenneth Baker PA-C Admitting Provider: Leonardo Silvestre MD Attending Provider on Admission: Leonardo Silvestre MD Consults: 05/01/25 14:56 Consult to Oncology Routine Comment: Aplastic anema, hx cancer Consulting Provider: Bari Schwartz Attending Provider on DC: Mk Hernandez MD Discharging Provider: Mk Hernandez MD Hospital Course Hospital Course Hospital course: No acute overnight events. Complains of feeling fatigued, dizzy and lightheaded. Denies fever, chills, headaches, chest pain, sob, cough, GI or urinary symptoms. Hemoglobin stable after transfusion. She is currently following with oncology outpatient, has not initiated chemoradiation therapy, currently pending imaging and biopsy which are scheduled for Saturday and Saturday this week at [facility]. Dr. Schwartz was consulted, pending recommendations. Time Spent with Patient Time attestation: Total time spent providing and/or coordinating discharge services: Exam Vital Signs Temp Pulse Resp BP Pulse Ox O2 Del Method O2 Flow Rate 98.2 F 100 22 H 112/67 95 Nasal Cannula 3 05/02/25 15:58 05/02/25 15:58 05/02/25 15:58 05/02/25 15:58 05/02/25 15:58 05/02/25 15:58 05/02/25 15:58 Discharge Plan Plan Patient Disposition: HOME (Self Care) Care Plan Goals: Follow up with your doctor within x1 week of discharge If any vomiting blood or dark tarry stools, go to your nearest hospital / ED Follow up with your oncologist Dr. Schwartz Prescriptions/Referrals Prescriptions/Med Rec: New levofloxacin 750 mg tablet 750 mg PO QDAY Qty: 6 0RF azithromycin 500 mg tablet 500 mg PO QDAY 5 Days Qty: 5 0RF No Action tramadol 50 mg tablet 50 mg PO Q6H PRN (Reason: pain) Qty: 30 0RF acetaminophen [8 Hour Pain Reliever] 650 mg tablet extended release 650 mg PO Q8H PRN (Reason: pain) Referrals: Kenneth Baker PA-C [Primary Care Provider] - Patient/Caregiver Discharge Instructions Print Language: Chinese Stand Alone Forms: [facility] Award Info., Patient Portal Info Letter, Work/Release Restrictions Discharge Order Discharge Orders: Discharge (Routine); Ordered 05/02/25 Ordered By: Mk Hernandez
--- NOTE | 2025-05-02 18:09 | PC.NURSE ---
Received a call from Farhana with [facility], confirming pt. to be discharged home today, pt. to dc when O2 arrives, Farhana stated, I will work on getting a portable tank delivered to the hospital.
[2025-05-02] MEDS: MORPHINE SULF INJ 10 MG/ML VIAL 2 MG IVP (19:23)
[2025-05-02 19:44] LABS: Folate 20.07 ng/mL (>5.38); Vitamin B12 627 pg/mL (211-911)
--- NOTE | 2025-05-02 19:49 | PC.NURSE ---
MD Farrell notified that patient is not discharged yet because we are still waiting for home O2 to be delivered.
[2025-05-03] VITALS (24 sets, daily range): BP systolic 100–132; BP diastolic 67–84; PULSE 90–113; RESP 18–25; TEMP 36.3–37.3; O2SAT 91–96
[2025-05-03] MEDS: HYDROcodone/APAP 5/325 TABLET 1 TAB PO ×3 (05:17→18:46)
[2025-05-03] MEDS: CEFEPIME INJ 2 GM in SODIUM CHLORIDE 0.9% (Popper) 50 ML IV ×2 (05:17→14:35)
[2025-05-03 06:11] LABS: Basophils # (Auto) 0.1 Thou/mm3 (0.0-0.2); Basophils % (Auto) 1 % (0-2.5); Eosinophils # (Auto) 0.2 Thou/mm3 (0.0-0.5); Eosinophils % (Auto) 3 % (0-10); Hematocrit 22.1 % (41.0-53.0); Immature Granulocytes % (Auto) 8 % (0-0); Immature Granulocytes Auto 0.65 Thou/mm3 (0.00-0.00); Lymphocytes % (Auto) 26 % (10-50); Mean Corpuscular HGB Conc 34.4 g/dl (31.0-37.0); Mean Corpuscular Hemoglobin 29.1 pg (25.0-35.0); Mean Corpuscular Volume 85 fL (80-100); Monocytes # (Auto) 0.6 Thou/mm3 (0.0-0.8); Monocytes % (Auto) 7 % (0-12); Neutrophils # (Auto) 4.2 Thou/mm3 (1.8-7.7); Neutrophils % (Auto) 55 % (37-80); Nucleated Red Blood Cell # 0.81 Thou/mm3 (0.00-0.00); Nucleated Red Blood Cell % 11 /100 WBC (0); RDW Standard Deviation 52.2 fL (35.1-43.9); Red Blood Count 2.61 Miln/mm3 (4.50-5.90); White Blood Count 7.7 Thou/mm3 (3.8-10.6)
[2025-05-03 06:12] LABS: Hemoglobin 7.6 g/dL (13.5-16.0)
[2025-05-03 06:13] LABS: Platelet Count 33 Thou/mm3 (140-440)
[2025-05-03 06:35] LABS: Alanine Aminotransferase 14 U/L (10-49); Albumin, Serum 3.4 gm/dL (3.5-5.0); Albumin/Globulin Ratio 1.8 (1.2-2.2); Alkaline Phosphatase 602 U/L (46-116); Anion Gap 8 (7-16); Aspartate Amino Transferase 23 U/L (0-34); BUN/Creatinine Ratio 20 Ratio (12-20); Bilirubin,Total 1.1 mg/dL (0.3-1.2); Blood Urea Nitrogen 10 mg/dL (9-23); Calcium (Corrected) 9.5 mg/dL (8.5-10.1); Carbon Dioxide 25.9 mMol/L (20.0-31.0); Chloride 101 mMol/L (98-107); Creatinine (Component) 0.5 mg/dL (0.6-1.3); Estimated Creatinine Clearance 159.5 mL/min (>60); Globulin 1.9 gm/dL (2.3-3.5); Glucose 106 mg/dL (74-106); Magnesium 1.8 mg/dL (1.6-2.6); Osmolality,Calculated 269 (275-295); Potassium 3.9 mMol/L (3.4-5.1); Sodium 135 mMol/L (136-145); Total Protein 5.3 gm/dL (5.7-8.2); eGFR > 60 See Note
[2025-05-03 07:56] LABS: Slide Review Platelets confirmed
--- NOTE | 2025-05-03 08:05 | ESCONSULT_ITS ---
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 Patient was admitted with hemoglobin of 4.8 platelets 71,000. Patient still in the process of workup and has not yet started chemo. Biopsy of bone has been ordered and pending. Received 3 units of packed cells and hemoglobin improved to 8.6. This a.m. WBC 7.7 hemoglobin 7.6 platelets 33,000. Patient receiving O2 and is in the process of getting a set up at home. Chest x-ray showed right Pleurx catheter in satisfactory position with bilateral pneumonia extensive right lung, with patient receiving antibiotics. Patient referred for oncological consultation. cc:: cc: Leonardo Silvestre MD Past Medical History Social History SOCIAL: Sometimes heavy drinker non-smoker Past Medical History Comments PMH COMMENT: Denies other than above Meds Home Medications and Allergies Home Medications ?Medication ?Instructions ?Recorded ?Confirmed ?Type acetaminophen 650 mg 650 mg PO Q8H PRN pain 03/2305/01/25 History tablet,extended release (8 Hour Pain Reliever) Allergies Allergy/AdvReac Type Severity Reaction Status Date / Time Penicillins Allergy Intermediate RASH Verified 04/30/25 15:02 Exam Vital Signs Temp Pulse Resp BP Pulse Ox O2 Del Method O2 Flow Rate 97.7 F 105 H 20 109/74 96 Nasal Cannula 3 05/03/25 07:44 05/03/25 07:44 05/03/25 07:44 05/03/25 07:44 05/03/25 07:44 05/03/25 07:44 05/03/25 07:44 Narrative Exam Appearing comfortable receiving O2. Results Labs 05/03/25 04:35 05/03/25 04:35 Labs: Short CBC 05/03/25 Range/Units 04:35 WBC 7.7 (3.8-10.6) Thou/mm3 Hgb 7.6 L (13.5-16.0) g/dL Hct 22.1 L (41.0-53.0) % Plt Count 33 L D (140-440) Thou/mm3 BMP 05/03/25 04:35 Sodium 135 L Potassium 3.9 Chloride 101 Carbon Dioxide 25.9 BUN 10 Creatinine 0.5 L Glucose 106 Calcium 9.0 Liver Function 05/03/25 Range/Units 04:35 Total Bilirubin 1.1 (0.3-1.2) mg/dL AST 23 (0-34) U/L ALT 14 (10-49) U/L Alkaline Phosphatase 602 H D (46-116) U/L Albumin 3.4 L (3.5-5.0) gm/dL Assessment and Plan Additional Assessment & Plan Additional Plan: 1. Patient with malignant fluid cytology possible GI primary with likely bone mets. Has port but cancer treatment has not yet been started. 2. Admitted with significant anemia improved with 3 units of packed cells. 3. Due to low platelets cannot have scheduled biopsy. Needed to find primary site as well as tissue molecular studies for possible targeted therapy and immunotherapy. 4. Hopefully can have scheduled outpatient PET scan tomorrow if patient can be discharged today. 4. Home O2 reportedly has been set up. Will follow patient upon discharge.
--- NOTE | 2025-05-03 09:38 | PC.SS ---
Addendum entered by Cassandra Allison 05/03/25 16:28: SS spoke to delivery crew member and he will be here in an hour and a half with 02. Updated floor nurse. Addendum entered by Cassandra Allison 05/03/25 15:27: SS made contact with manager group home, [facility], re: 02 delivery. He made arrangements to expedite order and will call [facility] for med/surg with an ETA Addendum entered by Cassandra Allison 05/03/25 15:00: SS spoke to Michelle @ [facility] @ [phone] xt [phone] and she states all their patients are now contracted with [employer]. [employer] @ [phone] is manager group home and SS left him a message about estimated time of delivery. Auth has already been approved. Addendum entered by Cassandra Allison 05/03/25 14:43: SS spoke to [facility] and they state the insurance co. called and said they were re-routing referral to [employer]. SS will call co. to verify @ [phone] Original Note: Follow up note: SS reviewed information. Patient had d/c orders yesterday but needed new 02. They needed prior auth. [facility] is reviewing documentation. If they are contracted and get authorization they will deliver today at bedside. SS will update patient.
--- NOTE | 2025-05-03 10:41 | PC.NURSE ---
dr craig made aware of type and screen. new order placed. transfusions pending results
--- NOTE | 2025-05-03 10:47 | PC.NURSE ---
Discharge orders in pending transfusion of 2 units of platlets and 1 unit of PRBC. Plan is to get pt plts >100 and keep hgb >[address] lung bx expected saturday. Pt to have PET scan tomorrow
--- NOTE | 2025-05-03 14:14 | ESDS_ITS ---
<Statement entered by Kenyetta Mohamud MD - 05/03/25 16:43> I Kenyetta Mohamud MD reviewed the note and agree with the resident's assessment & plan with exceptions as below. I have personally reviewed labs, imaging, home meds/prior records, examined the patient, formulated and discussed management plan with the IM team. A 49-year-old male with unknown metastatic GI malignancy recently discovered admitted for severe anemia, thrombocytopenia requiring transfusion (3 PRBCs with) s. Patient also noted to have infiltrates on CXR with cough, will treat empirically with cefepime and azithromycin. Patient has already scheduled PET scan and bone marrow biopsy with oncology. There is a slight decline in hemoglobin to 7.6 and significant drop in platelet count to 30s. Etiology of pancytopenia likely related to unknown extensive malignancy which is currently being worked up. Will transfuse a unit RBC and 2 units of platelets to keep platelet count> 50,000 in preparation for bone marrow biopsy likely in the next 1-2 days. After transfusion we will switch patient to p.o. antibiotics with levofloxacin and azithromycin to complete 7 days and discharge. Will defer further management of malignancy and pancytopenia to hematology/oncology. Planned Discharge Date 05/03/25 DS: Providers Provider Date of admission: 05/03/25 07:49 Primary care physician: Kenneth Baker PA-C Admitting Provider: Leonardo Silvestre MD Attending Provider on Admission: Leonardo Silvestre MD Consults: 05/01/25 14:56 Consult to Oncology Routine Comment: Aplastic anema, hx cancer Consulting Provider: Bari Schwartz Attending Provider on DC: Kenyetta Mohamud MD Discharging Provider: Kenyetta Mohamud MD DS: Diagnosis Problem List Completed Was Problem List Reviewed/Reconciled?: Yes Hospital Course Hospital Course Hospital course: This is a 49-year-old male with PMHx of upper GI malignancy, currently under the care of Dr. Schwartz and awaiting biopsy results prior to initiating treatment, presenting from cancer center with acute normocytic anemia, Hgb 4.8. Completed 3 units PRBC transfusions, Hgb initially sustained around 8.5. He has an outpat ient appt scheduled for bone marrow biopsy on the day of discharge, which was postponed given low platelets of 33. Subsequently, he was transfused 2 unit PLTs and an additional 1 unit PRBCs in preparation for the biopsy. He has an appointment with radiology for PET scan scheduled for tomorrow. He remained hemodynamically stable throughout this visit and on discharge. As for the source of anemia, it's most likely aplastic anemia secondary to malignancy. There is no source of bleed, FOBT negative, abdominal pelvis CT no signs of hemorrhage. Additionally, he had image findings of bilateral extensive pneumonia for which he was started on ANTIBIOTICS and will continue a course of AZITHROMYCIN and LEVOTHYROXINE for 5 more days. He remained afebrile without leukocytosis, although requiring oxygen for which home oxygen was ordered. IMAGE FINDINGS: * CXR showed bilateral pneumonia, extensive right lung. * Abdominal pelvis CT showed bilateral pneumonia, large bilateral pleural effusion, pleural catheter on the right with satisfactory position, no focal gastrointestinal bleed site, normal appendix, urinary bladder wall thickening up to 6 mm congestive cystitis. PATIENT INSTRUCTIONS: * Follow-up with PCP within 1 week of discharge. * Follow up with your oncologist Dr. Schwartz on discharge. * If any vomiting blood or dark tarry stools, go to your nearest hospital / ED * Return to Emergency Room if symptoms persist, worsen, or new symptoms develop. * Continue taking AZITHROMYCIN and LEVOFLOXACIN once daily for 5 more days. * Continue taking medications as prescribed below. ADMISSION DIAGNOSES: Acute on chronic normocytic anemia Aplastic anemia in setting of malignancy Thrombocytopenia Large bilateral pleural effusion S/p right pleural catheter Loculated right pleural Bilateral pneumonia, extensive right lung Metastatic GI malignancy Mild hyponatremia hypoosmolar Small fat-containing left inguinal hernia Case was discussed with attending physician and senior resident. Jamie Alvarado DO PGYI Time Spent with Patient Time attestation: Total time spent providing and/or coordinating discharge services: Time spent: Greater than 30 minutes Exam Vital Signs Temp Pulse Resp BP Pulse Ox O2 Del Method O2 Flow Rate 98.8 F 107 H 24 H 105/71 96 Nasal Cannula 3 05/03/25 13:50 05/03/25 13:50 05/03/25 13:50 05/03/25 13:50 05/03/25 13:50 05/03/25 11:54 05/03/25 13:50 Narrative Exam General Appearance: Alert & Oriented X3, well-nourished male who is lying in bed in no acute distress HEENT: Skull symmetrical and atraumatic. Conjunctivae pale pink and moist. Pupils equal, round, reactive to light and accommodation (PERRL). External ear without lesion or discharge. Straight, nares patient, mucosa pink, no discharge. Cardio: Tachy Rate and Rhythm with S1 and S2 heart sounds. No murmurs or extra heart sounds auscultated. No bruits on carotid auscultation. No peripheral edema or cyanosis. Lungs: Symmetric with good expansion. Back tenderness. Breath sounds vesicular without crackles, wheezing or rhonchi Abdomen: Non-tender, Non-distended, Normal Reactive Bowel Sounds Neuro: Alert, cooperative, oriented to person, place, and time. Speech clear. CN grossly intact. Upper motor strength 5/5 and Lower motor strength 5/5. Sensation intact. Discharge Plan Plan Patient Disposition: HOME (Self Care) Patient condition on transfer: Stable Care Plan Goals: * Follow-up with PCP within 1 week of discharge. * Follow up with your oncologist Dr. Schwartz on discharge. * If any vomiting blood or dark tarry stools, go to your nearest hospital / ED * Return to Emergency Room if symptoms persist, worsen, or new symptoms develop. * Continue taking AZITHROMYCIN and LEVOFLOXACIN once daily for 5 more days. * Continue taking medications as prescribed below. Prescriptions/Referrals Prescriptions/Med Rec: New levofloxacin 750 mg tablet 750 mg PO QDAY Qty: 6 0RF azithromycin 500 mg tablet 500 mg PO QDAY 5 Days Qty: 5 0RF Continued tramadol 50 mg tablet 50 mg PO Q6H PRN (Reason: pain) Qty: 30 0RF acetaminophen [8 Hour Pain Reliever] 650 mg tablet extended release 650 mg PO Q8H PRN (Reason: pain) Referrals: Kenneth Baker PA-C [Primary Care Provider] - Patient/Caregiver Discharge Instructions Education Materials: Anemia, Anemia During Cancer, Treating Pneumonia Print Language: Togolese Stand Alone Forms: [facility] Award Info., Patient Portal Info Letter, Work/Release Restrictions Discharge Order Discharge Orders: Discharge (Routine); Ordered 05/03/25 Ordered By: Jamie Alvarado Quality Discharge Quality Measures VTE prophylaxis
--- NOTE | 2025-05-03 21:25 | PC.NURSE ---
Notified Dr. Farrell regarding patient requiring one more unit of platelets, then to DC patient after administration of platelets.
[2025-05-03] MEDS: ACETAMINOPHEN 325 MG TABLET 650 MG PO (21:52)
[2025-05-03] MEDS: FAMOTIDINE 20 MG TABLET PO (21:53)
== END 2025-05-03 22:35 | disposition home or self-care (01) | DRG 240 ==
LOC: SERX 15:51 → SERHOLD 21:56 → S3NX 23:52
PROVIDERS: Nurse Practitioner Family; Admitting Provider Internal Medicine; Emergency Provider Emergency Medicine; PCP Physician Assistant; Visit Provider Internal Medicine
DX: C26.9 Malignant neoplasm of ill-defined sites within the digestive system (principal); D61.818 Other pancytopenia; D63.0 Anemia in neoplastic disease; J18.9 Pneumonia, unspecified organism; C79.51 Secondary malignant neoplasm of bone; D62 Acute posthemorrhagic anemia; E87.1 Hypo-osmolality and hyponatremia; D69.59 Other secondary thrombocytopenia; K40.90 Unilateral inguinal hernia, without obstruction or gangrene, not specified as recurrent; J91.0 Malignant pleural effusion; Z88.0 Allergy status to penicillin
CPT/HCPCS: 36415; 36430; 71045; 74177; 80053; 81001; 82270; 82607; 82746; 83036; 83540; 83550; 83735; 84100; 85025; 85610; 85730; 86850; 86900; 86901; 86923; 86965; 87081; 87502; 87811; 93225; 96365; 96367; 96374; 96375; 99285; A4649; G0378; J0456; J0692; J0696; J2270; J2405; J7050; P9016; P9035; Q9967; A9270

== ENCOUNTER → 2025-04-30 | Outpatient (CLI) | payer MEDICAID, SELFPAY ==
[2025-04-29 16:03] VITALS: BMI 22.6
[2025-04-30 12:27] LABS: Basophils # (Auto) 0.1 Thou/mm3 (0.0-0.2); Basophils % (Auto) 1 % (0-2.5); Eosinophils # (Auto) 0.1 Thou/mm3 (0.0-0.5); Eosinophils % (Auto) 1 % (0-10); Immature Granulocytes % (Auto) 9 % (0-0); Immature Granulocytes Auto 0.79 Thou/mm3 (0.00-0.00); Lymphocytes % (Auto) 22 % (10-50); Mean Corpuscular HGB Conc 32.4 g/dl (31.0-37.0); Mean Corpuscular Hemoglobin 27.3 pg (25.0-35.0); Mean Corpuscular Volume 84 fL (80-100); Monocytes # (Auto) 0.8 Thou/mm3 (0.0-0.8); Monocytes % (Auto) 9 % (0-12); Neutrophils # (Auto) 5.3 Thou/mm3 (1.8-7.7); Neutrophils % (Auto) 59 % (37-80); Nucleated Red Blood Cell % 12 /100 WBC (0); Platelet Count 84 Thou/mm3 (140-440); RDW Standard Deviation 51.9 fL (35.1-43.9); Red Blood Count 1.76 Miln/mm3 (4.50-5.90); White Blood Count 8.9 Thou/mm3 (3.8-10.6)
[2025-04-30 12:32] LABS: Blood Urea Nitrogen 11 mg/dL (9-23); Creatinine (Component) 0.6 mg/dL (0.6-1.3); Estimated Creatinine Clearance 132.3 mL/min (>60); eGFR > 60 See Note
[2025-04-30 12:36] LABS: INR 1.4 (0.9-1.3); Partial Thromboplastin Time 37.5 Seconds (22.0-36.0); Prothrombin Time 15.1 Seconds (9.0-12.2)
[2025-04-30 12:49] LABS: Hematocrit 14.8 % (41.0-53.0)
[2025-04-30 12:51] LABS: Hemoglobin 4.9 g/dL (13.5-16.0)
[2025-04-30 13:47] LABS: Path Review Blood Smear Sent to Pathologist
== END | disposition home or self-care (01) ==
LOC: SCAT 05-06 07:33
PROVIDERS: Radiology Diagnostic Radiology; PCP Physician Assistant; Referring Provider Internal Medicine Hematology & Oncology; Visit Provider Internal Medicine Hematology & Oncology
DX: Z53.8 Procedure and treatment not carried out for other reasons (principal); Z01.812 Encounter for preprocedural laboratory examination
CPT/HCPCS: 36415; 82565; 84520; 85025; 85610; 85730

== ENCOUNTER 2025-05-04 11:06 | Outpatient (RCR) | payer MEDICAID, SELFPAY ==
[2025-05-04 12:12] LABS: Basophils # (Auto) 0.1 Thou/mm3 (0.0-0.2); Basophils % (Auto) 1 % (0-2.5); Eosinophils # (Auto) 0.2 Thou/mm3 (0.0-0.5); Eosinophils % (Auto) 2 % (0-10); Hematocrit 24.1 % (41.0-53.0); Immature Granulocytes Auto 0.53 Thou/mm3 (0.00-0.00); Lymphocytes # (Auto) 1.5 Thou/mm3 (1.0-4.8); Lymphocytes % (Auto) 20 % (10-50); Mean Corpuscular HGB Conc 34.4 g/dl (31.0-37.0); Mean Corpuscular Hemoglobin 28.1 pg (25.0-35.0); Mean Corpuscular Volume 82 fL (80-100); Monocytes # (Auto) 0.6 Thou/mm3 (0.0-0.8); Monocytes % (Auto) 8 % (0-12); Neutrophils # (Auto) 4.7 Thou/mm3 (1.8-7.7); Neutrophils % (Auto) 62 % (37-80); Nucleated Red Blood Cell # 0.40 Thou/mm3 (0.00-0.00); Nucleated Red Blood Cell % 5 /100 WBC (0); Platelet Count 118 Thou/mm3 (140-440); RDW Standard Deviation 49.9 fL (35.1-43.9); Red Blood Count 2.95 Miln/mm3 (4.50-5.90); White Blood Count 7.6 Thou/mm3 (3.8-10.6)
[2025-05-04 12:29] LABS: LDH (Lactate Dehydrogenase) 452 U/L (120-246); Uric Acid 4.7 mg/dL (3.7-9.2)
[2025-05-04 12:54] LABS: Hemoglobin 8.3 g/dL (13.5-16.0)
[2025-05-12 06:17] LABS: Haptoglobin* 185 mg/dL (43-212)
== END 2025-06-03 23:59 | disposition home or self-care (01) ==
LOC: SCTC 11:06
PROVIDERS: PCP Physician Assistant; Referring Provider Physician Assistant; Visit Provider Internal Medicine Hematology & Oncology
DX: C78.2 Secondary malignant neoplasm of pleura (principal); C79.51 Secondary malignant neoplasm of bone; C80.1 Malignant (primary) neoplasm, unspecified
CPT/HCPCS: 36591; 83010; 83615; 84550; 85025; A4216; J1642

== ENCOUNTER 2025-05-05 07:58 | Outpatient (CLI) | payer MEDICAID, SELFPAY ==
[2025-05-03 13:32] VITALS: BMI 22.8
[2025-05-05] VITALS (11 sets, daily range): BP systolic 102–122; BP diastolic 72–90; PULSE 20–109; RESP 20–31; TEMP 36.8; O2SAT 93–100
[2025-05-05 08:36] LABS: Basophils # (Auto) 0.1 Thou/mm3 (0.0-0.2); Basophils % (Auto) 1 % (0-2.5); Eosinophils # (Auto) 0.2 Thou/mm3 (0.0-0.5); Eosinophils % (Auto) 3 % (0-10); Hematocrit 24.5 % (41.0-53.0); Immature Granulocytes Auto 0.63 Thou/mm3 (0.00-0.00); Lymphocytes # (Auto) 2.1 Thou/mm3 (1.0-4.8); Lymphocytes % (Auto) 24 % (10-50); Mean Corpuscular HGB Conc 33.9 g/dl (31.0-37.0); Mean Corpuscular Hemoglobin 27.9 pg (25.0-35.0); Mean Corpuscular Volume 83 fL (80-100); Monocytes # (Auto) 0.6 Thou/mm3 (0.0-0.8); Monocytes % (Auto) 7 % (0-12); Neutrophils # (Auto) 5.3 Thou/mm3 (1.8-7.7); Neutrophils % (Auto) 59 % (37-80); Nucleated Red Blood Cell # 0.46 Thou/mm3 (0.00-0.00); Nucleated Red Blood Cell % 5 /100 WBC (0); Platelet Count 106 Thou/mm3 (140-440); RDW Standard Deviation 52.9 fL (35.1-43.9); Red Blood Count 2.97 Miln/mm3 (4.50-5.90); White Blood Count 8.9 Thou/mm3 (3.8-10.6)
[2025-05-05 08:56] LABS: Hemoglobin 8.3 g/dL (13.5-16.0)
--- NOTE | 2025-05-05 09:30 | XR_ITS ---
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 A timeout was completed verifying correct patient, procedure, site and positioning. . Technique: Axial 3 mm sections were obtained for localization of the posterior superior iliac crest. Appropriate area is marked. The patient's site was prepped and draped in sterile fashion Maximal sterile barrier technique utilized, including hand hygiene Local anesthesia was obtained with 1% lidocaine. Low dose protocols were performed. One or more of the following dose reduction techniques were used; automated exposure control, adjustment of the mA and/or KV according to patient size, use of iterative reconstruction technique. I was informed at the time of the biopsies at the normal bone biopsy needle is not available for use The much longer bone biopsy needle was not successful in obtaining a biopsy in this case IMPRESSION: This patient needs to be rescheduled when the appropriate bone biopsy needle is available for use
[2025-05-05 10:05] LABS: INR 1.3 (0.9-1.3); Partial Thromboplastin Time 41.3 Seconds (22.0-36.0); Prothrombin Time 13.7 Seconds (9.0-12.2)
[2025-05-05] MEDS: fentaNYL CIT INJ 50 mCg/ML AMP 2ML 75 MCG IVP (10:55)
--- NOTE | 2025-05-05 11:53 | PC.NURSE ---
1130 patient is awake, alert, breathing unlabored, s/p bone biopsy by dr rivera. Dressing to lower back dry with no blood on gauze, hematoma noted, pressure applied. Report received from Florencia VALDEZ.
--- NOTE | 2025-05-05 12:07 | PC.NURSE ---
hematoma to lower back resolved
[2025-05-05] MEDS: HEPARIN SOD LOCK SYR 100 UNIT/ML 500 UNIT INTRACATH (12:46)
--- NOTE | 2025-05-05 13:15 | PC.NURSE ---
1315 patient is awake, alert, breathing unlabored, dressing to lower back dry with no active bleeding or hematoma, patient came in with port a cath wich was deaccessed after heparin flush injected. site covered with band aid. Patient dressed, placed in wheelchair with 3 oxygen (patient came into hospital with oxygen and went home with personal oxygen tank). Discharge instructions given by Kassidy munguia intepreter. patient discharged home in wheelchair with all belongings.
== END 2025-05-05 13:15 | disposition home or self-care (01) ==
PROVIDERS: Radiology Diagnostic Radiology; Referring Provider Internal Medicine Hematology & Oncology; Visit Provider Internal Medicine Hematology & Oncology
DX: C78.00 Secondary malignant neoplasm of unspecified lung (principal)
CPT/HCPCS: 20220; 36415; 77012; 85025; 85610; 85730; J1642; J3010

== ENCOUNTER 2025-05-07 00:55 | Inpatient (IN) | payer MEDICAID, SELFPAY ==
[2025-05-07] VITALS (20 sets, daily range): BP systolic 113–138; BP diastolic 72–106; PULSE 103–134; RESP 18–31; TEMP 36.6–38; O2SAT 91–99; BMI 22.6
--- NOTE | 2025-05-07 | XR_ITS ---
Examination: MRI brain with intravenous contrast TECHNIQUE: Multiple axial sagittal coronal brain MRI images post intravenous administration 12 cc gadolinium Date and time: May 07, 2025 1529 hours INDICATIONS: Diagnosis widespread osteoblastic metastatic disease, 32 mm pulmonary mass right upper lobe on CT chest study today FINDINGS: Ventricles are normal in size and configuration. No mass effect upon the ventricular system. No effacement cortical sulci Pituitary is not enlarged Fourth ventricle midline No abnormal enhancing cerebellar or cerebral lesions IMPRESSION: No abnormal enhancing cerebellar or cerebral lesions
--- NOTE | 2025-05-07 01:07 | XR_ITS ---
Examination: AP chest single view TECHNIQUE: AP portable upright chest single view Date and time: May 07, 2025, 0132 hours Comparison April 30, 2025 INDICATIONS: History recurrent malignant pleural effusions FINDINGS: Right Pleurx catheter satisfactory position Extensive right lung pneumonia Significant right pleural disease Right Port-A-Cath tip right atrium Widespread osteoblastic metastatic disease IMPRESSION: Significant right lung pneumonia Significant right pleural disease
--- NOTE | 2025-05-07 01:07 | EKG_ITS ---
[facility] Test Date: 2025-05-07 Pat Name: LYN ROJAS Department: Room: - Gender: Male Continuous Conveyor Screen Drier: : 1975 Requested By: Denilson Rueda Order Number: [id number] Reading MD: Denilson Rueda Measurements Intervals [place] Rate: 135 P: 51 NV: 138 QRS: 50 QRSD: 85 T: 32 QT: 259 QTc: 389 Interpretive Statements SINUS TACHYCARDIA NONSPECIFIC T-WAVE ABNORMALITY ABNORMAL RHYTHM ECG Compared to ECG 03/23/2025 12:23:27 Sinus rhythm no longer present T-wave abnormality still present /store/S0/[id number]
--- NOTE | 2025-05-07 01:12 | PD.EDADULT ---
ED General RME/HPI General Chief complaint: Headache Stated complaint: CHEST WALL PAIN, HEADACHE Time Seen by Provider: 05/07/25 01:07 Arrival date/time: 05/07/25 00:55 RME / HPI RME / HPI narrative: see MDM Related Data Home Medications ?Medication ?Instructions ?Recorded ?Confirmed acetaminophen 650 mg 650 mg PO Q8H PRN pain 03/23/25 05/05/25 tablet,extended release (8 Hour Pain Reliever) Previous Rx's ?Medication ?Instructions ?Recorded tramadol 50 mg tablet 50 mg PO Q6H PRN pain #30 tabs 02/05/25 levofloxacin 750 mg tablet 750 mg PO QDAY #6 tabs 05/02/25 Allergies Allergy/AdvReac Type Severity Reaction Status Date / Time Penicillins Allergy Intermediate RASH Verified 05/03/25 13:36 Review of Systems Review of Systems Systems Reviewed: All systems reviewed, normal except as documented ED Exam Narrative Physical exam: GENERAL: NAD, AAOx3 HEENT: Moist mucosa. Eyes open, symmetrical, & clear CARDIO: Heart RRR, no obvious murmurs PULM: dyspnea CTA B/L, no R/W/R GI: Abdomen soft, nondistended, no pain on palpation. BSx4 SKIN/MSK/EXT: No wounds/rashes/edema/amputations, no pain on palpation. Pedal pulses present B/L NEURO: AAOx3, no focal neuro deficits, able to move all 4 extremities Course Quality Measures none Orders Category Date Time Status Bedside COVID-19 Antigen Test NOW Care 05/07/25 01:31 Active Bedside Influenza A&B Antigen Test NOW Care 05/07/25 01:31 Completed Property Maintenance Technician Q4H START 00 Care 05/07/25 01:10 Active EKG (ED ONLY) *Do not use* NOW Care 05/07/25 01:07 Completed Saline [Insert IV] NOW Care 05/07/25 01:23 Active Transfuse,blood/blood products NOW Care 05/07/25 01:[address] chest wo con Stat Exams 05/07/25 01:31 Taken EKG (ED Only) Stat Exams 05/07/25 01:07 Draft XR chest 2V Stat Exams 05/07/25 01:07 Taken B-Type Natriuretic Peptide Stat Lab 05/07/25 01:10 Completed Bilirubin,Direct Stat Lab 05/07/25 02:52 Completed CBC Stat Lab 05/07/25 01:10 Completed SONNY [Direct Sonny] Stat Lab 05/07/25 02:52 Results Comprehensive Metabolic Panel Stat Lab 05/07/25 01:10 Completed Drug Screen,Urine Stat Lab 05/07/25 02:55 Completed LDH (Lactate Dehydrogenase) Stat Lab 05/07/25 01:10 Completed Lactic Acid [Lactate (Lactic Acid)] Stat Lab 05/07/25 01:10 Completed Magnesium Stat Lab 05/07/25 01:10 Completed Partial Thromboplastin Time Stat Lab 05/07/25 01:10 Completed Path Review Blood Smear Stat Lab 05/07/25 01:10 Completed Prothrombin Time with INR Stat Lab 05/07/25 01:10 Completed Troponin I Stat Lab 05/07/25 01:10 Completed Type and Screen Stat Lab 05/07/25 02:52 Results Urinalysis Stat Lab 05/07/25 02:48 Completed prbc [Red Blood Cells] Stat Lab 05/07/25 02:52 Results HYDROmorphone INJ [Dilaudid Inj] Med 05/07/25 03:04 Discontinued 1 mg IVP X1 ONE Morphine Inj Med 05/07/25 01:27 Discontinued 6 mg IVP X1 ONE Ondansetron Inj [Zofran Inj] Med 05/07/25 01:27 Discontinued 4 mg IVP X1 ONE Oxygen Delivery NOW RT 05/07/25 01:10 Active Vital Signs Vital signs: Vital Signs Temperature 98.9 F 05/07/25 00:57 Pulse Rate 129 H 05/07/25 00:57 Respiratory Rate 23 H 05/07/25 00:57 Blood Pressure 122/77 05/07/25 00:57 Pulse Oximetry (%) 91 L 05/07/25 00:57 Oxygen Delivery Method Room Air 05/07/25 00:57 Discharge Plan Plan Patient Disposition: Admit Acute Care w/in Hospital Problem List Clinical Impression: Anemia, Pneumonia, Shortness of breath, Pleural effusion MDM Narrative [facility] hospital course: 49 y/o M with PMHx of primary GI malignancy with bone mets, recent admission on 04/30/2025 for anemia requiring transfusions, s/p bone marrow biopsy came here to the ED due to chest pain. Patient states that he had his bone marrow biopsy done on Saturday. He has a Mediport but has been unable to start chemotherapy. He endorses some right sided chest pain, near the site where he had pleural drain. He also endorses fever and chills cough with productive white sputum. Patient recently had discharge on 05/03/2025 and had multiple transfusions done and was treated empirically with antibiotic therapy for bilateral pneumonia. 0218: Morphine 6 mg IV x 1 given, labs ordered, imaging ordered 0355: CT chest shows right-sided loculated effusion with some consolidation, pulmonary edema, multiple sclerotic regions in the bone. 0407: spoke to IM team who will admit the patient. Clinical Information Provided by patient and spouse Medical Records Reviewed [facility] Chronic Illness/Social Conditions which may negatively complicate care or outcome(s)-explain: Cancer Medication Administration(s) Medication Administration History Acetaminophen (Acetaminophen 325 Mg Tablet) 650 mg PO Q6H PRN PRN Reason: Pain 1-3 and / or fever >100.1 Stop: 06/06/25 04:48 Hydrocodone Bitart/Acetaminophen (Hydrocodone/Apap 10/325 Tab) 1 tab PO Q4H PRN PRN Reason: PAIN SCALE 4-6 (Moderate Stop: 05/12/25 04:48 Piperacillin Sod/Tazobactam (Sod 4.5 gm/ Sodium Chloride) 100 mls @ 200 mls/hr IV Q6HR JUAN JOSE Stop: 05/14/25 04:58 Piperacillin Sod/Tazobactam (Sod 4.5 gm/ Sodium Chloride) 100 mls @ 200 mls/hr IV X1 ONE Stop: 05/07/25 05:44 Vancomycin/Sodium Chloride (Vancomycin/Ns 1 Gm Ivpb) 200 mls @ 120 mls/hr IV X1 ONE Stop: 05/07/25 06:54 Morphine Sulfate (Morphine Sulf Inj 10 Mg/Ml Vial) 2 mg IVP Q6H PRN PRN Reason: PAIN SCALE 7-10 (Severe Stop: 05/12/25 04:48 Ondansetron HCl (Ondansetron Inj 2 Mg/Ml Inj 2 Ml) 4 mg IVP Q6H PRN; Protocol PRN Reason: NAUSEA OR VOMITING Stop: 06/06/25 04:48 Pharmacy Consult (Vancomycin Pharmacy To Dose 1 Each Each) 1 each IV QDAY JUAN JOSE Stop: 06/06/25 08:59 Sennosides (Senna Tablet) 1 tab PO QDAY PRN; Protocol PRN Reason: constipation Stop: 06/06/25 04:48 Discontinued Medications Hydromorphone HCl (Hydromorphone Inj 2 Mg/Ml Vial) 1 mg IVP X1 ONE Stop: 05/07/25 03:05 Last Admin: 05/07/25 03:56 Dose: 1 mg Documented By: NICO Morphine Sulfate (Morphine Sulf Inj 10 Mg/Ml Vial) 6 mg IVP X1 ONE Stop: 05/07/25 01:28 Last Admin: 05/07/25 02:18 Dose: 6 mg Documented By: EULALIO Ondansetron HCl (Ondansetron Inj 2 Mg/Ml Inj 2 Ml) 4 mg IVP X1 ONE; Protocol Stop: 05/07/25 01:28 Last Admin: 05/07/25 02:20 Dose: 4 mg Documented By: MAHNAZ Sodium Chloride (Sodium Chloride Rt 10% 15 Ml Nebu) 5 ml INH X1 ONE Stop: 05/07/25 04:57 Diagnosis Differential diagnosis: pleural effusion, pneumonia, pericarditis, Most likely dx, and/or detailed dx discussion: pleural effusion Dispositon Disposition: Admit
[2025-05-07 01:19] LABS: Lactate (Lactic Acid) 1.3 mMol/L (0.4-2.0)
[2025-05-07 01:29] LABS: Basophils # (Auto) 0.1 Thou/mm3 (0.0-0.2); Basophils % (Auto) 1 % (0-2.5); Eosinophils # (Auto) 0.2 Thou/mm3 (0.0-0.5); Eosinophils % (Auto) 3 % (0-10); Immature Granulocytes Auto 0.77 Thou/mm3 (0.00-0.00); Lymphocytes # (Auto) 2.0 Thou/mm3 (1.0-4.8); Lymphocytes % (Auto) 21 % (10-50); Mean Corpuscular HGB Conc 33.8 g/dl (31.0-37.0); Mean Corpuscular Hemoglobin 27.9 pg (25.0-35.0); Mean Corpuscular Volume 82 fL (80-100); Monocytes # (Auto) 0.8 Thou/mm3 (0.0-0.8); Monocytes % (Auto) 8 % (0-12); Neutrophils # (Auto) 5.7 Thou/mm3 (1.8-7.7); Neutrophils % (Auto) 59 % (37-80); Nucleated Red Blood Cell # 0.81 Thou/mm3 (0.00-0.00); Nucleated Red Blood Cell % 9 /100 WBC (0); Platelet Count 87 Thou/mm3 (140-440); RDW Standard Deviation 52.4 fL (35.1-43.9); Red Blood Count 2.44 Miln/mm3 (4.50-5.90); White Blood Count 9.5 Thou/mm3 (3.8-10.6)
--- NOTE | 2025-05-07 01:31 | XR_ITS ---
Examination: CT chest, without intravenous contrast. Sagittal and coronal 2-D reconstructions. Exam date and time: May 07, 2025, 0203 hours Comparison April 22, 2025 INDICATIONS: Diagnosis recurrent malignant pleural effusions CTDI:vol (mGy) 10 DLP: (mGycm) 390 Technique: Multiple 3.0 mm axial sections of the chest to been obtained. Bone and lung density settings are obtained. Sagittal and coronal 2-D reconstructions have been obtained. Low dose protocols were performed. One or more of the following dose reduction techniques were used; automated exposure control, adjustment of the mA and/or KV according to patient size, use of iterative reconstruction technique. Findings: No thoracic aortic aneurysmal dilatation Pulmonary artery segments are not enlarged Right Pleurx catheter satisfactory position although fluid collection with air density is present in the right lower lung zone, significant Extensive right lung pneumonia Right apical mass with irregular margins 32 mm Moderate left pleural fluid No focal liver or splenic lesion No gallstones No hydronephrosis Widespread osteoblastic metastatic disease. IMPRESSION: Suspicious for significant right hemithorax empyema, recommend placement surgical chest tube Extensive right lung pneumonia Moderate left pleural fluid 32 mm pulmonary mass in the right upper lobe Widespread osteoblastic metastatic disease
[2025-05-07 01:32] LABS: Hematocrit 20.1 % (41.0-53.0); Hemoglobin 6.8 g/dL (13.5-16.0)
[2025-05-07 01:34] LABS: INR 1.3 (0.9-1.3); Partial Thromboplastin Time 39.0 Seconds (22.0-36.0); Prothrombin Time 14.0 Seconds (9.0-12.2)
[2025-05-07 01:38] LABS: Alanine Aminotransferase 17 U/L (10-49); Albumin, Serum 3.8 gm/dL (3.5-5.0); Albumin/Globulin Ratio 1.5 (1.2-2.2); Alkaline Phosphatase 775 U/L (46-116); Anion Gap 11 (7-16); Aspartate Amino Transferase 22 U/L (0-34); BUN/Creatinine Ratio 22 Ratio (12-20); Bilirubin,Total 1.5 mg/dL (0.3-1.2); Blood Urea Nitrogen 11 mg/dL (9-23); Calcium 8.8 mg/dL (8.3-10.6); Calcium (Corrected) 9.0 mg/dL (8.5-10.1); Carbon Dioxide 24.0 mMol/L (20.0-31.0); Chloride 103 mMol/L (98-107); Creatinine (Component) 0.5 mg/dL (0.6-1.3); Estimated Creatinine Clearance 158.8 mL/min (>60); Globulin 2.6 gm/dL (2.3-3.5); Glucose 114 mg/dL (74-106); LDH (Lactate Dehydrogenase) 459 U/L (120-246); Magnesium 1.8 mg/dL (1.6-2.6); Osmolality,Calculated 276 (275-295); Potassium 4.0 mMol/L (3.4-5.1); Sodium 138 mMol/L (136-145); Total Protein 6.4 gm/dL (5.7-8.2); Troponin I < 0.002 ng/mL (0.0-0.045); eGFR > 60 See Note
[2025-05-07 02:01] LABS: B-Type Natriuretic Peptide 65 pg/mL (0-100)
[2025-05-07] MEDS: MORPHINE SULF INJ 10 MG/ML VIAL 6 MG IVP (02:18)
[2025-05-07] MEDS: ONDANSETRON INJ 2 MG/ML INJ 2 ML 4 MG IVP ×2 (02:20→07:51)
[2025-05-07 02:48] LABS: Path Review Blood Smear Sent to Pathologist
--- NOTE | 2025-05-07 02:59 | PC.NURSE ---
CONSENT FOR BLOOD TRANSFUSION OBTAINED, PATEINT VERBALIZES UNDERSTANDING OF BLOOD TRANSFUSION AND HAS NO QUESTIONS.
[2025-05-07 03:01] LABS: Collection Type, Urine Clean Catch; RBC,Urine 0 /hpf (0-3); Squamous Epithelial Cell,Urine 0 /hpf (0-5)
[2025-05-07 03:20] LABS: Bilirubin,Urine Negative (Negative); Blood,Urine Negative (Negative); Clarity,Urine Clear (Clear/Hazy); Color,Urine Lt-Yellow (Lt Yel-Yel); Glucose, Urine Negative (Negative); Ketones,Urine 1+ (Negative); Leukocyte Esterase,Urine Negative (Negative); Nitrite,Urine Negative (Negative); PH,Urine 6.5 (5.0-7.0); Protein,Urine Negative (Neg - Trace); Specific Gravity,Urine 1.011 (1.001-1.035); Urobilinogen,Urine Negative mg/dL (0.0-1.0); WBC,Urine 1 /hpf (0-5)
[2025-05-07 03:28] LABS: Amphetamine/Methamp Scrn,U Negative (Negative); Barbiturate Screen,Urine Negative (Negative); Benzodiazepines Screen,Urine Negative (Negative); Benzoylecgonine Screen, Ur Negative (Negative); Fentanyl Screen,Urine Negative (Negative); Opiate Screen,Urine Negative (Negative); THC Screen,Urine Negative (Negative)
--- NOTE | 2025-05-07 03:29 | PRELIM_ITS ---
CT scan of the chest without intravenous contrast (axial sections with sagittal and coronal reformats) May 07, 2025 0203 hours Clinical History: R/o pleural effusion No prior study is available for comparison. Findings: Loculated moderate right pleural effusion with air loculi inside. Placed right chest tube with its tip inside loculated pleural effusion. Consolidations in the right middle and lower lobes. Smooth interlobular septal thickening throughout right lung and minimally at the left lung apex. Moderate left pleural effusion. 2.2 cm nodular opacity at the right lung apex. No evidence of pneumothorax. Multiple prominent mediastinal lymph nodes. The thoracic aorta is unremarkable. There is no pericardial effusion. Multiple sclerotic lesions in the bones. The visualized upper abdominal viscera are unremarkable on this noncontrast study. Impression: 1. Loculated moderate right pleural effusion with air loculi inside suggestive of pleural empyema. Recommend clinical correlation and follow-up. 2. Consolidations in the right middle and lower lobes. Recommend clinical correlation and follow-up. 3. Smooth interlobular septal thickening throughout right lung and minimally at the left lung apex suggestive of pulmonary edema. Recommend clinical correlation. 4. Moderate left pleural effusion. 5. Multiple sclerotic lesions in the bones. In the appropriate setting, the possibility of marrow infiltrative process cannot be excluded. Recommend clinical correlation and followup. 6. 2.2 cm nodular opacity at the right lung apex. Recommend follow-up. 7. Other findings as described above. Report Electronically Signed By: Elieser Galo 05/07/2025 3:29:38 AM [EST]
[2025-05-07 03:31] LABS: Bilirubin,Direct 0.4 mg/dL (0.0-0.3)
[2025-05-07] MEDS: HYDROmorphone INJ 2 MG/ML VIAL 1 MG IVP (03:56)
--- NOTE | 2025-05-07 05:02 | ESHP_ITS ---
<Statement entered by Kenyetta Mohamud MD - 05/07/25 20:29> I Kenyetta Mohamud MD reviewed the note and agree with the resident's assessment & plan with exceptions as below. I have personally reviewed labs, imaging, home meds/prior records, examined the patient, formulated and discussed management plan with the IM team. <Statement entered by Cristobal Bernal MD - 05/07/25 07:16> I have personally seen and examined the patient. I agree with the resident's assessment and plan as documented below. 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 He had previously been admitted on 04/30/2025 for anemia requiring transfusions s/p bone marrow biopsy and also on 05/03/2025 for multiple transfusions and empiric antibiotic therapy for bilateral pneumonia. Patient states that both the headache and chest pain began yesterday morning. The headache is localized to the center of the scalp and radiates towards the back of the head while the chest pain originates from the center and radiates to the left and worsens with palpation. The headache pain is characterized as throbbing while the chest pain is characterized as burning. Both pains are stated by the patient to come and go with no specific aggravating or alleviating factors. The patient states that he has had similar pain when he got pneumonia 3-4 weeks ago and that, at the time of interview, his pain was an 8/10. In the ED, patient was given Morphine 6 mg IV x 1 for pain management while labs and imaging were ordered. EKG showed sinus tachycardia with nonspecific T wave abnormalities. Preliminary impression of CT chest collected on 05/07 by radiology was as follows: 1. Loculated moderate right pleural effusion with air loculi inside suggestive of pleural empyema. Recommend clinical correlation and follow-up. 2. Consolidations in the right middle and lower lobes. Recommend clinical correlation and follow-up. 3. Smooth interlobular septal thickening throughout right lung and minimally at the left lung apex suggestive of pulmonary edema. Recommend clinical correlation. 4. Moderate left pleural effusion. 5. Multiple sclerotic lesions in the bones. In the appropriate setting, the possibility of marrow infiltrative process cannot be excluded. Recommend clinical correlation and followup. 6. 2.2 cm nodular opacity at the right lung apex. Recommend follow-up. Patient was admitted to the floor for possible drainage of the empyema, antibiotic treatment of potential pneumonia, and further workup regarding his continued anemia. Review of Systems Review of Systems Narrative Review of Systems: General: Endorses fatigue and weakness. Endorses weight loss of 20 pounds over a month. Endorses night sweats. Denies fevers or chills HEENT: Denies blurred vision, sore throat Heart: Endorses chest pain. Denies palpitations Lungs: Endorses productive cough w/ white sputum. Denies shortness of breath Abdomen: Endorses vomiting 1x yesterday. Denies nausea, constipation, diarrhea, or blood in stool Review of systems otherwise negative except what is mentioned above. Past Medical History Past Medical History RESPIRATORY: Positive Pneumonia Family History OTHER FAMILY HX: Sister of ovarian cancer at the age of 40 or 41. Surgical History OTHER SURGICAL HX: Has had 3 total bone marrow biopsies. Social History SOCIAL: Lives at home with , 1 dog, and 2 hens in [place]. 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 Travel History [place] RISK: No Exam Vital Signs Temp Pulse Resp BP Pulse Ox O2 Del Method O2 Flow Rate 98.4 F 112 H 21 H 113/75 98 Nasal Cannula 3 05/07/25 04:53 05/07/25 04:53 05/07/25 04:53 05/07/25 04:53 05/07/25 04:53 05/07/25 04:00 05/07/25 04:53 Narrative Exam Physical Exam: General: Alert, no acute distress. Skin: Warm, dry, intact, no obvious rash. Head: Normocephalic, atraumatic. Eye: Normal conjunctiva, PERRL. Throat: Oral mucosa moist. No obvious lesions in oropharynx. Cardiovascular: Regular rate and rhythm, no murmur, +S1/S2. Respiratory: Lungs are clear to auscultation, respirations unlabored, no crackles, no wheezing. Gastrointestinal: Soft, nontender, non-distended. No guarding or rebound tenderness. Extremities: No edema, no cyanosis, no clubbing. 2+ radial pulse bilaterally, 2+ posterior tibial pulse bilaterally. Neuro: No focal deficits observed. Conversant, moving all extremities. No overt cerebellar signs/incoordination. Psychiatric: Cooperative, appropriate affect. Results: Labs 05/07/25 01:10 05/07/25 01:10 Labs: Short CBC 05/07/25 Range/Units 01:10 WBC 9.5 (3.8-10.6) Thou/mm3 Hgb 6.8 L* (13.5-16.0) g/dL Hct 20.1 L* (41.0-53.0) % Plt Count 87 L (140-440) Thou/mm3 BMP 05/07/25 01:10 Sodium 138 Potassium 4.0 Chloride 103 Carbon Dioxide 24.0 BUN 11 Creatinine 0.5 L Glucose 114 H Calcium 8.8 Cardiac Enzymes 05/07/25 Range/Units 01:10 Troponin I < 0.002 (0.0-0.045) ng/mL Liver Function 05/07/25 05/07/25 Range/Units 01:10 02:52 Total Bilirubin 1.5 H (0.3-1.2) mg/dL Direct Bilirubin 0.4 H (0.0-0.3) mg/dL AST 22 (0-34) U/L ALT 17 (10-49) U/L Alkaline Phosphatase 775 H (46-116) U/L Albumin 3.8 (3.5-5.0) gm/dL Urine 05/07/25 Range/Units 02:48 Urine Color Lt-Yellow (Lt Yel-Yel) Urine Clarity Clear (Clear/Hazy) Urine pH 6.5 (5.0-7.0) Ur Specific [place] 1.011 (1.001-1.035) Urine Protein Negative (Neg - Trace) Urine Glucose (UA) Negative (Negative) Quality Measures Quality Measures none Medications Home Medications and Allergies Home Medications ?Medication ?Instructions ?Recorded ?Confirmed ?Type acetaminophen 650 mg 650 mg PO Q8H PRN pain 03/2305/05/25 History tablet,extended release (8 Hour Pain Reliever) Allergies Allergy/AdvReac Type Severity Reaction Status Date / Time Penicillins Allergy Intermediate RASH Verified 05/03/25 13:36 Visit Medications Acetaminophen (Acetaminophen 325 Mg Tablet) 650 mg PO Q6H PRN PRN Reason: Pain 1-3 and / or fever >100.1 Stop: 06/06/25 04:48 Hydrocodone Bitart/Acetaminophen (Hydrocodone/Apap 10/325 Tab) 1 tab PO Q4H PRN PRN Reason: PAIN SCALE 4-6 (Moderate Stop: 05/12/25 04:48 Morphine Sulfate (Morphine Sulf Inj 10 Mg/Ml Vial) 2 mg IVP Q6H PRN PRN Reason: PAIN SCALE 7-10 (Severe Stop: 05/12/25 04:48 Ondansetron HCl (Ondansetron Inj 2 Mg/Ml Inj 2 Ml) 4 mg IVP Q6H PRN; Protocol PRN Reason: NAUSEA OR VOMITING Stop: 06/06/25 04:48 Sennosides (Senna Tablet) 1 tab PO QDAY PRN; Protocol PRN Reason: constipation Stop: 06/06/25 04:48 Sodium Chloride (Sodium Chloride Rt 10% 15 Ml Nebu) 5 ml INH X1 ONE Stop: 05/07/25 04:57 Discontinued Medications Hydromorphone HCl (Hydromorphone Inj 2 Mg/Ml Vial) 1 mg IVP X1 ONE Stop: 05/07/25 03:05 Last Admin: 05/07/25 03:56 Dose: 1 mg Morphine Sulfate (Morphine Sulf Inj 10 Mg/Ml Vial) 6 mg IVP X1 ONE Stop: 05/07/25 01:28 Last Admin: 05/07/25 02:18 Dose: 6 mg Ondansetron HCl (Ondansetron Inj 2 Mg/Ml Inj 2 Ml) 4 mg IVP X1 ONE; Protocol Stop: 05/07/25 01:28 Last Admin: 05/07/25 02:20 Dose: 4 mg Assessment & Plan Plan Patient is a 49-year-old male with a past medical history of 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 Patient was admitted to the floor for possible drainage of the empyema, antibiotic treatment of potential pneumonia, and further workup regarding his continued anemia. #Empyema Initial CT chest impression: loculated moderate right pleural effusion with air loculi inside suggestive of pleural empyema. Possibly 2/2 metastasis of GI malignancy to lungs and bone resulting in more frequent infections from immunocompromised status and recurrent pleural effusions. 1. Will attempt to drain empyema 2. Started empiric antibiotic therapy of vancomycin and Zosyn for presumed hospital-acquired pneumonia #Pneumonia Initial CT chest impression: consolidations in the right middle and lower lobes. Absence of fever and lack of elevated WBC may be explained by myelosuppression of bone marrow 2/2 metastasis of osteoblastic lesions (anemia and thrombocytopenia present). 1. Started empiric antibiotic therapy of vancomycin and Zosyn for presumed hospital-acquired pneumonia 2. Follow up on sputum culture that has been ordered to narrow antibiotic range #Pleural effusion Initial CT chest impression: moderate left pleural effusion. Possibly 2/2 metastasis of GI malignancy to lungs resulting in exudative pleural effusion (malignant cytology confirmed on assays of previous episodes of pleural effusion). 1. Will attempt to drain pleural effusion #Normocytic anemia #Thrombocytopenia Low hemoglobin of 6.8 and platelets of 87 likely 2/2 myelosuppression of bone marrow from infiltration of metastatic GI malignancy (WBC normal at 9.5) Myelosuppression hypothesis supported by presence of nucleated RBC's at 9/100 indicating abnormal bone marrow function May also be 2/2 underlying hemolytic anemia due to elevated LDH of 459 1. Will continue transfusing with pRBCs should hemoglobin remain below 7 2. Follow up on lab results for haptoglobin to rule out hemolytic anemia 3. Follow up on pathology interpretation of peripheral blood smear to further shed light on possible anemia etiology Health Maintenance: 1. Lines - PIV, michelle-cath on the right 2. Diet - Cardiac 3. Bowel - Senna PRN 4. DVT Prophylaxis - SCD 5. GI Prophylaxis - none 6. Dispo - going to get IV antibiotics and possible thoracentesis 7. Code - Full Patient was seen and examined with my attending, Dr. Mohamud, and senior resident, Dr. Bernal. Catalino Quinones, PGY-1
--- NOTE | 2025-05-07 05:25 | PC.RT ---
Sputum culture collected and sent to LAB for analysis.
[2025-05-07] MEDS: MORPHINE SULF INJ 10 MG/ML VIAL 2 MG IVP ×2 (07:50→17:42)
[2025-05-07] MEDS: VANCOMYCIN/NS 1 GM IVPB 200 ML IV ×3 (07:52→21:09)
[2025-05-07] MEDS: Magnesium Sulfate 2 GM Ivpb 2 GM/50 ML BAG IV (07:53)
--- NOTE | 2025-05-07 10:17 | PC.NURSE ---
Spoke with Rosalino, informed her that pt's Zosyn is late due to pt refusing 2nd IV, but also that the pt is allergic to penicillin and Zosyn is in the same family. Rosalino is going to speak to the team and will put in new orders or inform me of what they want, Hold Zosyn for now
[2025-05-07] MEDS: CEFEPIME INJ 2 GM in SODIUM CHLORIDE 0.9% (Popper) 50 ML IV ×2 (10:32→21:08)
[2025-05-07 11:44] LABS: Basophils # (Auto) 0.1 Thou/mm3 (0.0-0.2); Basophils % (Auto) 1 % (0-2.5); Eosinophils # (Auto) 0.2 Thou/mm3 (0.0-0.5); Eosinophils % (Auto) 2 % (0-10); Hematocrit 22.1 % (41.0-53.0); Immature Granulocytes Auto 0.73 Thou/mm3 (0.00-0.00); Lymphocytes # (Auto) 1.5 Thou/mm3 (1.0-4.8); Lymphocytes % (Auto) 18 % (10-50); Mean Corpuscular HGB Conc 34.8 g/dl (31.0-37.0); Mean Corpuscular Hemoglobin 28.2 pg (25.0-35.0); Mean Corpuscular Volume 81 fL (80-100); Monocytes # (Auto) 0.8 Thou/mm3 (0.0-0.8); Monocytes % (Auto) 9 % (0-12); Neutrophils # (Auto) 5.3 Thou/mm3 (1.8-7.7); Neutrophils % (Auto) 62 % (37-80); Nucleated Red Blood Cell # 0.98 Thou/mm3 (0.00-0.00); Nucleated Red Blood Cell % 11 /100 WBC (0); RDW Standard Deviation 51.5 fL (35.1-43.9); Red Blood Count 2.73 Miln/mm3 (4.50-5.90); White Blood Count 8.6 Thou/mm3 (3.8-10.6)
[2025-05-07 11:59] LABS: Hemoglobin 7.7 g/dL (13.5-16.0); Platelet Count 71 Thou/mm3 (140-440)
[2025-05-07 12:00] LABS: Slide Review Platelets confirmed
[2025-05-07 12:01] LABS: Alanine Aminotransferase 14 U/L (10-49); Albumin, Serum 3.4 gm/dL (3.5-5.0); Albumin/Globulin Ratio 1.4 (1.2-2.2); Alkaline Phosphatase 720 U/L (46-116); Anion Gap 7 (7-16); Aspartate Amino Transferase 21 U/L (0-34); BUN/Creatinine Ratio 17 Ratio (12-20); Bilirubin,Total 1.3 mg/dL (0.3-1.2); Blood Urea Nitrogen 10 mg/dL (9-23); Calcium 8.4 mg/dL (8.3-10.6); Calcium (Corrected) 8.9 mg/dL (8.5-10.1); Carbon Dioxide 26.3 mMol/L (20.0-31.0); Chloride 103 mMol/L (98-107); Creatinine (Component) 0.6 mg/dL (0.6-1.3); Estimated Creatinine Clearance 132.3 mL/min (>60); Globulin 2.4 gm/dL (2.3-3.5); Glucose 125 mg/dL (74-106); Magnesium 2.2 mg/dL (1.6-2.6); Osmolality,Calculated 271 (275-295); Phosphorous 3.1 mg/dL (2.4-5.1); Potassium 4.6 mMol/L (3.4-5.1); Sodium 136 mMol/L (136-145); Total Protein 5.8 gm/dL (5.7-8.2); eGFR > 60 See Note
--- NOTE | 2025-05-07 15:24 | PD.RESPRO ---
Documentation for date of: 05/07/25 Subjective Subjective Interval history: Patient was seen and examined at the bedside. Patient reported that he had chest pain and headache when he came to the hospital overnight. Patient received Port A cath but did not start chemotherapy. He is pending on bone marrow biopsy results and PET scan. He stated that he was having shortness of breath as well. No fever spikes were recorded overnight. Patient was breathing well. Chest pain was reproducible on palpation. He was found to have acute drop in hemoglobin and was given transfusion. Patient already had a Pleurx catheter placed in right side and was found to have empyema on right side of lung. 650 cc removed from pleurvac. Exam Vital Signs Temp Pulse Resp BP Pulse Ox O2 Del Method O2 Flow Rate 99.4 F 114 H 20 126/81 95 Nasal Cannula 3 05/07/25 10:59 05/07/25 10:59 05/07/25 10:59 05/07/25 10:59 05/07/25 10:59 05/07/25 10:59 05/07/25 10:59 Narrative Exam GENERAL APPEARANCE: Patient is AO x 3, lean male in no acute distress. Saturating well on 3 L nasal cannula. HEENT: NC, AT. MMM. EOMI, clear conjunctiva, oropharynx clear. NECK: Supple without lymphadenopathy. No stiffness or restricted ROM.Port A cath clean and dry. HEART: Sinus tachycardia with regular rhythm, normal S1/S2, no m/r/g LUNGS: Decreased breath sounds on right side and breath sounds appreciable on left side. PleurX catheter on right side. ABDOMEN: Soft, nontender, nondistended with good bowel sounds heard. BACK: No CVAT, no obvious deformity. EXTREMITIES: Without cyanosis, clubbing or edema. NEUROLOGICAL: Grossly nonfocal. Alert and oriented, moving all 4 extremities. CN not formally tested but appear grossly intact. Observed to ambulate with normal gait. Skin: Warm and dry without any rash. Psych: Appropriate mood and affect Objective Labs 05/08/25 04:15 05/08/25 04:15 Labs: Laboratory Results - last 24 hr 05/07/25 05/07/25 05/07/25 01:10 02:48 02:52 WBC 9.5 RBC 2.44 L Hgb 6.8 L* Hct 20.1 L* MCV 82 MCH 27.9 MCHC 33.8 RDW Std Deviation 52.4 H Plt Count 87 L Neut % (Auto) 59 Lymph % (Auto) 21 [place] % (Auto) 8 Eos % (Auto) 3 Baso % (Auto) 1 Neut # (Auto) 5.7 Lymph # (Auto) 2.0 [place] # (Auto) 0.8 Eos # (Auto) 0.2 Baso # (Auto) 0.1 Immature Gran # (Auto) 0.77 H Absolute Nucleated RBC 0.81 H Immature Gran % 8 H Nucleated RBC % 9 H Smear Path Review Sent to Pathologist Cancelled PT 14.0 H INR 1.3 APTT 39.0 H Sodium 138 Potassium 4.0 Chloride 103 Carbon Dioxide 24.0 Anion Gap 11 BUN 11 Creatinine 0.5 L Estim Creat Clear Calc 158.8 eGFR > 60 BUN/Creatinine Ratio 22 H Glucose 114 H Calculated Osmolality 276 Lactic Acid 1.3 Calcium 8.8 Corrected Calcium 9.0 Phosphorus Magnesium 1.8 Total Bilirubin 1.5 H Direct Bilirubin 0.4 H AST 22 ALT 17 Alkaline Phosphatase 775 H Lactate Dehydrogenase 459 H Troponin I < 0.002 B-Natriuretic Peptide 65 Total Protein 6.4 Albumin 3.8 Globulin 2.6 Albumin/Globulin Ratio 1.5 Ur Collection Type Clean Catch Urine Color Lt-Yellow Urine Clarity Clear Urine pH 6.5 Ur Specific [place] 1.011 Urine Protein Negative Urine Glucose (UA) Negative Urine Ketones 1+ A Urine Blood Negative Urine Nitrite Negative Urine Bilirubin Negative Urine Urobilinogen (Auto) Negative Ur Leukocyte Esterase Negative Urine RBC 0 Urine WBC 1 Ur Squamous Epith Cells 0 Urine Bacteria None Urine Opiates Screen Urine Fentanyl Screen Ur Barbiturates Screen U Amphetamin/Meth Scrn U Benzodiazepines Scrn U Cocaine Metab Screen U Marijuana (THC) Screen Misc Test Result Blood Type A Positive Antibody Screen NEGATIVE Direct Antiglob Test Negative Crossmatch See Detail Blood Bank Wristband ID Yes 05/07/25 05/07/25 02:55 11:10 WBC 8.6 RBC 2.73 L Hgb 7.7 L Hct 22.1 L MCV 81 MCH 28.2 MCHC 34.8 RDW Std Deviation 51.5 H Plt Count 71 L Neut % (Auto) 62 Lymph % (Auto) 18 [place] % (Auto) 9 Eos % (Auto) 2 Baso % (Auto) 1 Neut # (Auto) 5.3 Lymph # (Auto) 1.5 [place] # (Auto) 0.8 Eos # (Auto) 0.2 Baso # (Auto) 0.1 Immature Gran # (Auto) 0.73 H Absolute Nucleated RBC 0.98 H Immature Gran % 9 H Nucleated RBC % 11 H Smear Path Review PT INR APTT Sodium 136 Potassium 4.6 D Chloride 103 Carbon Dioxide 26.3 Anion Gap 7 BUN 10 Creatinine 0.6 Estim Creat Clear Calc 132.3 eGFR > 60 BUN/Creatinine Ratio 17 Glucose 125 H Calculated Osmolality 271 L Lactic Acid Calcium 8.4 Corrected Calcium 8.9 Phosphorus 3.1 Magnesium 2.2 Total Bilirubin 1.3 H Direct Bilirubin AST 21 ALT 14 Alkaline Phosphatase 720 H D Lactate Dehydrogenase Troponin I B-Natriuretic Peptide Total Protein 5.8 Albumin 3.4 L Globulin 2.4 Albumin/Globulin Ratio 1.4 Ur Collection Type Urine Color Urine Clarity Urine pH Ur Specific [place] Urine Protein Urine Glucose (UA) Urine Ketones Urine Blood Urine Nitrite Urine Bilirubin Urine Urobilinogen (Auto) Ur Leukocyte Esterase Urine RBC Urine WBC Ur Squamous Epith Cells Urine Bacteria Urine Opiates Screen Negative Urine Fentanyl Screen Negative Ur Barbiturates Screen Negative U Amphetamin/Meth Scrn Negative U Benzodiazepines Scrn Negative U Cocaine Metab Screen Negative U Marijuana (THC) Screen Negative Misc Test Result Platelets confirmed Blood Type Antibody Screen Direct Antiglob Test Crossmatch Blood Bank Wristband ID Quality Measures Quality Measures VTE prophylaxis Assessment & Plan Assessment Current Active Medications: Generic Name Dose Route Start Last Admin Trade Name Freq PRN Reason Stop Dose Admin Acetaminophen 650 mg 05/07/25 04:49 Acetaminophen 325 Mg Tablet PO 06/06/25 04:48 Q6H PRN Pain 1-3 and / or fever >100.1 Hydrocodone Bitart/Acetaminophen 1 tab 05/07/25 04:49 Hydrocodone/Apap 10/325 Tab PO 05/12/25 04:48 Q4H PRN PAIN SCALE 4-6 (Moderate Vancomycin/Sodium Chloride 200 mls @ 120 mls/hr 05/07/25 22:00 Vancomycin/Ns 1 Gm Ivpb IV 05/14/25 21:59 Q8HR [facility] Protocol Cefepime HCl 2 gm/ Sodium 50 mls @ 100 mls/hr 05/07/25 10:15 05/07/25 11:05 Chloride IV 05/14/25 10:14 Infused Q8HR JUAN JOSE Infusion Vancomycin/Sodium Chloride 200 mls @ 120 mls/hr 05/07/25 14:00 05/07/25 14:25 Vancomycin/Ns 1 Gm Ivpb IV 05/07/25 15:39 120 mls/hr X1 ONE Administration Protocol Morphine Sulfate 2 mg 05/07/25 04:49 05/07/25 07:50 Morphine Sulf Inj 10 Mg/Ml Vial IVP 05/12/25 04:48 2 mg Q6H PRN Administration PAIN SCALE 7-10 (Severe Ondansetron HCl 4 mg 05/07/25 04:49 05/07/25 07:51 Ondansetron Inj 2 Mg/Ml Inj 2 Ml IVP 06/06/25 04:48 4 mg Q6H PRN Administration NAUSEA OR VOMITING Protocol Pantoprazole Sodium 40 mg 05/07/25 09:00 05/07/25 09:55 Pantoprazole Inj 40 Mg Vial IVP 06/06/25 08:59 40 mg QDAY JUAN JOSE Administration Pharmacy Consult 1 each 05/07/25 09:00 Vancomycin Pharmacy To Dose 1 Each Each IV 06/06/25 08:59 QDAY PRN CONSULT Sennosides 1 tab 05/07/25 04:49 Senna Tablet PO 06/06/25 04:48 QDAY PRN constipation Protocol Plan This patient is a 49-year-old male with past medical history of 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 He was found to have empyema and right lung pneumonia and acute drop in hemoglobin. Admitted for further workup. #Acute respiratory distress #Likely related to right-sided malignant empyema and possible community-acquired pneumonia In the setting of metastatic GI malignancy mets to bones and lung Initial CT chest impression: loculated moderate right pleural effusion with air loculi inside suggestive of pleural empyema. Possibly 2/2 metastasis of GI malignancy to lungs and bone resulting in more frequent infections from immunocompromised status and recurrent pleural effusions. Plan: -Will follow-up on chest x-ray post pleural fluid removal - 650 cc removed from pleurvac. ? attached pleurvac with Pleurx catheter to drain empyema ? Will consider dornase to help with draining ?Will consult perfect bind machine operator, Dr. Bonds tomorrow ? Monitor for signs of respiratory distress ? Performing MRI brain with contrast to evaluate brain mets #Community-acquired pneumonia ?In the setting of infection/empyema Initial CT chest impression: consolidations in the right middle and lower lobes. Absence of fever and lack of elevated WBC may be explained by myelosuppression of bone marrow 2/2 metastasis of osteoblastic lesions (anemia and thrombocytopenia present). Plan: ? Continue vancomycin and cefepime as patient is allergic to penicillin ?Follow-up on blood cultures and sputum cultures ? Monitor for signs of fever # Left-sided pleural effusion #32 mm pulmonary mass in the right upper lobe Initial CT chest impression: moderate left pleural effusion. Possibly 2/2 metastasis of GI malignancy to lungs resulting in exudative pleural effusion (malignant cytology confirmed on assays of previous episodes of pleural effusion). Plan: ? Will monitor for now and consult perfect bind machine operator tomorrow as patient is currently stable #Acute drop in hemoglobin #Chronic normocytic anemia #Chronic thrombocytopenia ? In the setting of malignancy Low hemoglobin of 6.8 and platelets of 87 likely 2/2 myelosuppression of bone marrow from infiltration of metastatic GI malignancy (WBC normal at 9.5) Myelosuppression hypothesis supported by presence of nucleated RBC's at 9/100 indicating abnormal bone marrow function May also be 2/2 underlying hemolytic anemia due to elevated LDH of 459 Plan: ? 1 PRBC transfused ? Post H&H follow-up showed improvement in hemoglobin to 7.7 ? PRBC if hemoglobin drops below 7 ? Bone marrow biopsy results pending ?Bleeding precautions #History of metastatic GI malignancy mets to bones, lung with pulmonary nodules #Elevated T. bili with elevated ALP likely related to malignancy ? Patient did not start chemotherapy sessions till date. Pending bone marrow biopsy results. Pending PET scan. ? Follow-up with Dr. Schwartz, oncologist as outpatient. Plan: ?Follow-up with Dr. Schwartz as outpatient ?Follow-up with brain MRI with contrast to rule out brain metastasis Health Maintenance: Disposition: Admitted for management of acute respiratory distress related to empyema and community-acquired pneumonia and acute blood loss anemia. Diet: Cardiac DVT prophylaxis: SCDs GI prophylaxis: Protonix 40 mg IV daily CODE STATUS: Full code Plan of care discussed with attending physician, Dr. 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 He states that the pleuritic chest pain has been ongoing, more in his left chest than the right. A Pleurx catheter was placed about 3 weeks ago and had 1 L of bloody fluid removed about 2 days ago. Patient states that his headache began yesterday and feels bandlike around his head with dizziness and causing intractable nausea and vomiting. Upon presentation to the ED, patient was found to have a hemoglobin of 6.8. He received 1 unit of PRBCs and H&H is 7.7/22.1. Patient states that he feels slightly improved and headache has improved as well. A chest CT was done in the ED showing suspicious for significant right hemithorax empyema, extensive right lung pneumonia, moderate left pleural fluid and a 32 mm pulmonary mass in the right upper lobe with widespread osteoblastic metastatic disease. Patient is pending outpatient PET scan and further workup by cancer center, but was unable to complete PET scan due to the machine being down last week. Will obtain pleural fluid studies with fluid drained from Pleurx catheter. About 650 mL of gross bloody fluid was drained at bedside. Patient otherwise denies any fevers or chills. However, he was noted to have a temperature of 100.4 this morning on presentation. Patient also endorses having generalized weakness. Will continue to monitor H&H and follow-up with fluid cultures. Will obtain brain MRI to rule out any metastatic disease as cause of patient's nausea and vomiting and headache. Continue with empiric IV antibiotics at this time due to concern for empyema.
--- NOTE | 2025-05-07 18:17 | XR_ITS ---
Examination: AP chest single view Technique one AP portable semiupright chest single view Date and time: May 07, 2025 1847 hours Comparison May 07, 2025 1332 hours INDICATIONS: History malignant pleural effusions, chronic shortness of breath, status post right Pleurx catheter placement FINDINGS: Extensive right lung pneumonia Extensive right pleural disease despite the Pleurx catheter, please see the CT chest report this morning suspicious for right hemithorax empyema Right internal jugular central line tip satisfactory position IMPRESSION: Extensive right lung pneumonia Extensive right hemithorax pleural disease
[2025-05-07 19:31] LABS: Pleural Fluid Appearance Bloody; Pleural Fluid Color Red; Pleural Fluid WBC 1057 /cmm
[2025-05-07 19:37] LABS: Pleural Fluid RBC 450000 /cmm
[2025-05-07 19:38] LABS: Pleural Fluid Mononuclear 52 %; Pleural Fluid Polynuclear 48 %
[2025-05-07 19:42] LABS: Amylase,Pleural Fluid 48 IU/L; Glucose,Pleural Fluid 62 mg/dL; LDH,Pleural Fluid 750 IU/L; Protein Total,Pleural Fluid 4.4 g/dL
[2025-05-07 21:22] LABS: Specific Gravity, Body Fluid 1.020; pH,Body Fluid 7.0
[2025-05-08] VITALS (9 sets, daily range): BP systolic 111–127; BP diastolic 71–87; PULSE 102–120; RESP 19–39; TEMP 36.4–37.9; O2SAT 93–99; BMI 22.6
[2025-05-08] MEDS: MORPHINE SULF INJ 10 MG/ML VIAL 2 MG IVP ×2 (04:27→19:28)
[2025-05-08 05:45] LABS: Basophils # (Auto) 0.1 Thou/mm3 (0.0-0.2); Basophils % (Auto) 1 % (0-2.5); Eosinophils # (Auto) 0.3 Thou/mm3 (0.0-0.5); Eosinophils % (Auto) 3 % (0-10); Hematocrit 21.0 % (41.0-53.0); Immature Granulocytes Auto 0.85 Thou/mm3 (0.00-0.00); Immature Reticulocyte Fraction 42.0 % (2.3-13.4); Lymphocytes # (Auto) 2.2 Thou/mm3 (1.0-4.8); Lymphocytes % (Auto) 24 % (10-50); Mean Corpuscular HGB Conc 33.8 g/dl (31.0-37.0); Mean Corpuscular Hemoglobin 27.7 pg (25.0-35.0); Mean Corpuscular Volume 82 fL (80-100); Monocytes # (Auto) 0.7 Thou/mm3 (0.0-0.8); Monocytes % (Auto) 8 % (0-12); Neutrophils # (Auto) 5.3 Thou/mm3 (1.8-7.7); Neutrophils % (Auto) 56 % (37-80); Nucleated Red Blood Cell # 1.09 Thou/mm3 (0.00-0.00); Nucleated Red Blood Cell % 12 /100 WBC (0); RDW Standard Deviation 56.6 fL (35.1-43.9); Red Blood Count 2.56 Miln/mm3 (4.50-5.90); Reticulocyte % (Auto) 4.2 % (0.5-1.5); Reticulocyte Absolute Auto 106.2 Biln/L (25.0-75.0); Reticulocyte Hgb Content 31.1 pg (28.0-35.0); White Blood Count 9.4 Thou/mm3 (3.8-10.6)
[2025-05-08 05:48] LABS: Hemoglobin 7.1 g/dL (13.5-16.0); Platelet Count 64 Thou/mm3 (140-440)
[2025-05-08] MEDS: CEFEPIME INJ 2 GM in SODIUM CHLORIDE 0.9% (Popper) 50 ML IV ×3 (05:50→21:02)
[2025-05-08 06:06] LABS: INR 1.3 (0.9-1.3); Partial Thromboplastin Time 43.3 Seconds (22.0-36.0); Prothrombin Time 13.5 Seconds (9.0-12.2)
[2025-05-08 06:18] LABS: Slide Review Platelets confirmed
[2025-05-08 06:19] LABS: Alanine Aminotransferase 15 U/L (10-49); Albumin, Serum 3.5 gm/dL (3.5-5.0); Albumin/Globulin Ratio 1.4 (1.2-2.2); Alkaline Phosphatase 756 U/L (46-116); Anion Gap 10 (7-16); Aspartate Amino Transferase 23 U/L (0-34); BUN/Creatinine Ratio 20 Ratio (12-20); Bilirubin,Total 1.4 mg/dL (0.3-1.2); Blood Urea Nitrogen 10 mg/dL (9-23); Calcium 8.7 mg/dL (8.3-10.6); Calcium (Corrected) 9.1 mg/dL (8.5-10.1); Carbon Dioxide 26.2 mMol/L (20.0-31.0); Chloride 101 mMol/L (98-107); Creatinine (Component) 0.5 mg/dL (0.6-1.3); Estimated Creatinine Clearance 158.8 mL/min (>60); Globulin 2.5 gm/dL (2.3-3.5); Glucose 112 mg/dL (74-106); Osmolality,Calculated 273 (275-295); Potassium 4.3 mMol/L (3.4-5.1); Sodium 137 mMol/L (136-145); Total Protein 6.0 gm/dL (5.7-8.2); Vancomycin,Trough 13.2 mcg/mL (5.0-10.0); eGFR > 60 See Note
[2025-05-08] MEDS: VANCOMYCIN/NS 1 GM IVPB 200 ML IV ×3 (06:29→21:01)
--- NOTE | 2025-05-08 08:09 | PD.RESPRO ---
Documentation for date of: 05/08/25 Subjective Subjective Interval history: Afternoon lab draw on 05/08 of H/H with Hgb at 6.5, transfused 1 unit PRBC, follow up post transfusion H/H. pt reports positional chest pain, worse with inspiration. Exam Vital Signs Temp Pulse Resp BP Pulse Ox O2 Del Method O2 Flow Rate 98.3 F 115 H 21 H 118/79 95 Nasal Cannula 3 05/08/25 04:00 05/08/25 04:00 05/08/25 04:00 05/08/25 04:00 05/08/25 04:00 05/08/25 04:00 05/08/25 04:00 Narrative Exam GENERAL APPEARANCE: Patient is AO x 3,pale. lean body habitis in no acute distress. Saturating well on room air HEENT: NC, AT. MMM. EOMI, clear conjunctiva, NECK: No stiffness or restricted ROM.Port A cath clean and dry. HEART: Sinus tachycardia with regular rhythm, normal S1/S2, no m/r/g LUNGS: Decreased breath sounds on right side and breath sounds appreciable on left side. PleurX catheter on right side. ABDOMEN: Soft, nontender, nondistended with bowel sounds heard. BACK: No CVAT, no obvious deformity. EXTREMITIES: Without cyanosis, clubbing or edema. NEUROLOGICAL: Grossly nonfocal. Alert and oriented, moving all 4 extremities. CN not formally tested but appear grossly intact. Observed to ambulate with normal gait. Skin: Warm and dry without any rash. Psych: Appropriate mood and affect Objective Labs 05/09/25 05:41 05/09/25 05:41 Labs: Laboratory Results - last 24 hr 05/07/25 05/07/25 05/07/25 02:52 11:10 18:20 WBC 8.6 RBC 2.73 L Hgb 7.7 L Hct 22.1 L MCV 81 MCH 28.2 MCHC 34.8 RDW Std Deviation 51.5 H Plt Count 71 L Neut % (Auto) 62 Lymph % (Auto) 18 Burnett % (Auto) 9 Eos % (Auto) 2 Baso % (Auto) 1 Neut # (Auto) 5.3 Lymph # (Auto) 1.5 Burnett # (Auto) 0.8 Eos # (Auto) 0.2 Baso # (Auto) 0.1 Immature Gran # (Auto) 0.73 H Absolute Nucleated RBC 0.98 H Immature Gran % 9 H Nucleated RBC % 11 H Retic Count (auto) Absolute Retic Immature Retic Fraction Retic Hgb Content CHr PT INR APTT Sodium 136 Potassium 4.6 D Chloride 103 Carbon Dioxide 26.3 Anion Gap 7 BUN 10 Creatinine 0.6 Estim Creat Clear Calc 132.3 eGFR > 60 BUN/Creatinine Ratio 17 Glucose 125 H Calculated Osmolality 271 L Calcium 8.4 Corrected Calcium 8.9 Phosphorus 3.1 Magnesium 2.2 Total Bilirubin 1.3 H AST 21 ALT 14 Alkaline Phosphatase 720 H D Total Protein 5.8 Albumin 3.4 L Globulin 2.4 Albumin/Globulin Ratio 1.4 Fluid Specific Grav 1.020 Fluid pH 7.0 Pleural Color Red Pleural Appearance Bloody Pleural WBC 1057 Pleural RBC [id number] Pleural Polynuclear WBC 48 Pleural Mononuclear WBC 52 Pleural Total Protein 4.4 Pleural LDH 750 Pleural Glucose 62 Pleural Amylase 48 Vancomycin Trough Misc Test Result Platelets confirmed Crossmatch See Detail 05/08/25 04:15 WBC 9.4 RBC 2.56 L Hgb 7.1 L Hct 21.0 L* MCV 82 MCH 27.7 MCHC 33.8 RDW Std Deviation 56.6 H Plt Count 64 L Neut % (Auto) 56 Lymph % (Auto) 24 Burnett % (Auto) 8 Eos % (Auto) 3 Baso % (Auto) 1 Neut # (Auto) 5.3 Lymph # (Auto) 2.2 Burnett # (Auto) 0.7 Eos # (Auto) 0.3 Baso # (Auto) 0.1 Immature Gran # (Auto) 0.85 H Absolute Nucleated RBC 1.09 H Immature Gran % 9 H Nucleated RBC % 12 H Retic Count (auto) 4.2 H Absolute Retic 106.2 H Immature Retic Fraction 42.0 H Retic Hgb Content CHr 31.1 PT 13.5 H INR 1.3 APTT 43.3 H Sodium 137 Potassium 4.3 Chloride 101 Carbon Dioxide 26.2 Anion Gap 10 BUN 10 Creatinine 0.5 L Estim Creat Clear Calc 158.8 eGFR > 60 BUN/Creatinine Ratio 20 Glucose 112 H Calculated Osmolality 273 L Calcium 8.7 Corrected Calcium 9.1 Phosphorus Magnesium Total Bilirubin 1.4 H AST 23 ALT 15 Alkaline Phosphatase 756 H D Total Protein 6.0 Albumin 3.5 Globulin 2.5 Albumin/Globulin Ratio 1.4 Fluid Specific Grav Fluid pH Pleural Color Pleural Appearance Pleural WBC Pleural RBC Pleural Polynuclear WBC Pleural Mononuclear WBC Pleural Total Protein Pleural LDH Pleural Glucose Pleural Amylase Vancomycin Trough 13.2 H Misc Test Result Platelets confirmed Crossmatch Quality Measures Quality Measures VTE prophylaxis Assessment & Plan Assessment Current Active Medications: Generic Name Dose Route Start Last Admin Trade Name Freq PRN Reason Stop Dose Admin Acetaminophen 650 mg 05/07/25 04:49 Acetaminophen 325 Mg Tablet PO 06/06/25 04:48 Q6H PRN Pain 1-3 and / or fever >100.1 Hydrocodone Bitart/Acetaminophen 1 tab 05/07/25 04:49 05/07/25 21:18 Hydrocodone/Apap 10/325 Tab PO 05/12/25 04:48 1 tab Q4H PRN Administration PAIN SCALE 4-6 (Moderate Vancomycin/Sodium Chloride 200 mls @ 120 mls/hr 05/07/25 22:00 05/08/25 06:29 Vancomycin/Ns 1 Gm Ivpb IV 05/14/25 21:59 120 mls/hr Q8HR JUAN JOSE Administration Protocol Cefepime HCl 2 gm/ Sodium 50 mls @ 100 mls/hr 05/07/25 10:15 05/08/25 05:50 Chloride IV 05/14/25 10:14 100 mls/hr Q8HR JUAN JOES Administration Morphine Sulfate 2 mg 05/07/25 04:49 05/08/25 04:27 Morphine Sulf Inj 10 Mg/Ml Vial IVP 05/12/25 04:48 2 mg Q6H PRN Administration PAIN SCALE 7-10 (Severe Ondansetron HCl 4 mg 05/07/25 04:49 05/07/25 07:51 Ondansetron Inj 2 Mg/Ml Inj 2 Ml IVP 06/06/25 04:48 4 mg Q6H PRN Administration NAUSEA OR VOMITING Protocol Pantoprazole Sodium 40 mg 05/07/25 09:00 05/07/25 09:55 Pantoprazole Inj 40 Mg Vial IVP 06/06/25 08:59 40 mg QDAY JUAN JOSE Administration Pharmacy Consult 1 each 05/07/25 09:00 Vancomycin Pharmacy To Dose 1 Each Each IV 06/06/25 08:59 QDAY PRN CONSULT Sennosides 1 tab 05/07/25 04:49 Senna Tablet PO 06/06/25 04:48 QDAY PRN constipation Protocol Plan Mr. 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 He was found to have empyema and right lung pneumonia and acute drop in hemoglobin, transfused 1 unit prbc on 05/07, post transfusion Hgb bumped appropriately, repeat hgb labs <7 on 05/08 so pt was transfused with 1unit prbc, follow up post transfusion h/h. Pt has had minimal workup of new GI cancer diagnosis, GI consulted, pending MRCP, Clears diet pending GI evaluation and recs. #Acute drop in hemoglobin #Chronic normocytic anemia #Chronic thrombocytopenia ? In the setting of malignancy Low hemoglobin of 6.5 and platelets of 64 likely 2/2 myelosuppression of bone marrow from infiltration of metastatic GI malignancy (WBC normal at 9.5) Myelosuppression hypothesis supported by presence of nucleated RBC's at 9/100 indicating abnormal bone marrow function May also be 2/2 underlying hemolytic anemia due to elevated LDH of 459, pt denies having a history of GI bleeds, no melena or bright red blood per rectum. Plan: ? 2 units PRBC transfused total (pt transfused 1 unit 05/07 and another on 05/08 ? follow up post transfusion H/H ? PRBC if hemoglobin drops below 7 ? Bone marrow biopsy results pending ? Bleeding precautions #Community-acquired pneumonia ?In the setting of infection/empyema Initial CT chest impression: consolidations in the right middle and lower lobes. Absence of fever and lack of elevated WBC may be explained by myelosuppression of bone marrow 2/2 metastasis of osteoblastic lesions (anemia and thrombocytopenia present). Plan: ? Continue vancomycin and cefepime as patient is allergic to penicillin ?Bcx, NGTD @24 hrs - Sputum cultures pending ? Monitor for signs of fever #Acute respiratory distress #Likely related to right-sided malignant empyema and possible community-acquired pneumonia In the setting of metastatic GI malignancy mets to bones and lung Initial CT chest impression: loculated moderate right pleural effusion with air loculi inside suggestive of pleural empyema. Possibly 2/2 metastasis of GI malignancy to lungs and bone resulting in more frequent infections from immunocompromised status and recurrent pleural effusions. Plan: - follow up: Pleural fluid removed cytology - 650 cc removed from pleurvac 05/07 ? attached pleurvac with Pleurx catheter to drain empyema ? Will consider dornase to help with draining ? Consulted spinning frame changer, Dr. Bonds, appreciate recs. ? Monitor for signs of respiratory distress ? MR brain 05/07: No abnormal enhancing cerebellar or cerebral lesions #History of metastatic GI malignancy mets to bones, lung with pulmonary nodules #Elevated T. bili with elevated ALP likely related to malignancy ? Patient did not start chemotherapy sessions till date. BM biopsy results were inconclusive. Pending PET scan. ? Follow-up with Dr. Schwartz, oncologist as outpatient. - GI Consulted: Clears diet pending evaluation, possible EGD. - pending MRCP - pending PET scan as an outpatient Plan: ?Follow-up with Dr. Schwartz as outpatient ?Brain MRI- Negative for mets # Left-sided pleural effusion #32 mm pulmonary mass in the right upper lobe Initial CT chest impression: moderate left pleural effusion. Possibly 2/2 metastasis of GI malignancy to lungs resulting in exudative pleural effusion (malignant cytology confirmed on assays of previous episodes of pleural effusion). Plan: ? CTM - Pulmonology consulted Health Maintenance: Disposition: Admitted for management of acute respiratory distress related to empyema and community-acquired pneumonia and acute blood loss anemia. Diet: Clears DVT prophylaxis: SCDs GI prophylaxis: Protonix 40 mg IV daily CODE STATUS: Full code Case discussed with my attending Dr. Karon Lester MD PGY-1 Attending Provider Attestation/Addendum Shahid, Padmini Brantley, DO, attest that I was physically present for the mclaughlin portions of the service and evaluated the patient with the resident and I reviewed and discussed the case with the resident and agree with the resident's findings and plans of care as documented above. Patient seen and eval this a.m. Patient has no acute complaints at this time. He underwent drainage from Pleurx catheter yesterday during which it yielded gross bloody output consistent with malignant effusion of about 650 mL. Will continue to trend H&H. Bilirubin has been uptrending, same for the alkaline phosphatase. Due to the concern that his primary cancer may be secondary to GI versus hepatobiliary source based on pathology, will obtain MRCP and consult GI. Case was discussed over the phone with patient's radiation oncologist. Patient denies any hematochezia or melena. He reports resolution of his headache and dizziness. Suspect that headache and dizziness was likely secondary to symptomatic anemia. CT chest was reviewed with pulmonology, will do thoracentesis of left chest that has caused patient to have pleuritic chest pain. Also recommends continued drainage of the right effusion daily so that loculations can develop and decrease the space that the effusion can take up as it accumulates. Prelim report of the pleural fluid does not show any organisms. Will follow-up final cultures in order to rule in/out empyema. Will continue with antibiotics at this time. Patient otherwise denies any shortness of breath. Will follow-up with GI recommendations regarding further workup. Will place patient has clear liquid diet in anticipation of endoscopy. Report of recent bone biopsy that was inconclusive was discussed with patient and his family at bedside. All questions and concerns were addressed at bedside to patient and family's satisfaction. H&H in the afternoon was noted to be 6.8, will transfuse 1 unit of PRBCs and hold to other units.
--- NOTE | 2025-05-08 10:39 | XR_ITS ---
MRI abdomen, without contrast. MRCP Date and time of exam: May 08, 2025 1853 hours INDICATIONS: Hyperbilirubinemia on laboratory examination today Technique: Multiple axial and coronal images of the abdomen have been obtained with the Siemens 1.5T MRI scanner. Images obtained included T1 weighted transverse images, T2-weighted transverse images, T2-weighted transverse images fat-suppressed, T2 weighted haste fat suppressed transverse images, T1 weighted images, in and out of phase images, T2-weighted coronal images, breath hold, T2 weighted haze coronal images as well as T2 weighted coronal thick slab images, MRCP. Findings: Extensive right pleural disease, hepatomegaly 19 cm. Liver is irregular in contour, no focal liver lesions Contracted gallbladder, no gallstones, no gallbladder wall edema Common hepatic duct common bile duct each measured 2 mm no common bile duct stones No pancreatic mass or dilated pancreatic duct Spleen is not enlarged No hydronephrosis IMPRESSION:, Hepatomegaly, 19 cm, no intrahepatic biliary tract dilatation or solid appearing liver lesions Negative for cholelithiasis, negative for cholecystitis Normal common hepatic and common bile duct, no common bile duct stones
--- NOTE | 2025-05-08 11:52 | PC.SS ---
Rounding note: Final cutlures pending. 49 YO male, reason for visit: EMPYEMA. SS met with patient at bedside, role and purpose of contact was explained. Patient confirmed his demographic information. Patient stated his primary medical surrogate decisionmaker is his spouse, Jailene Méndez [phone]. Patient is independent with ADL completion and ambulation as well. Patient utilizes 3L of oxygen as needed. Unable to confirm DME vendor. [facility] PCP: Kenneth Schwartz also follows patient. Next of kin: Spouse Jailene Dev [phone]. Discharge plan: Home, spouse to provide transport.
[2025-05-08 12:57] LABS: Hemoglobin 6.5 g/dL (13.5-16.0)
[2025-05-08 12:58] LABS: Hematocrit 18.8 % (41.0-53.0)
--- NOTE | 2025-05-08 17:48 | PD.IMCONS ---
HPI Data of Consult Requesting Physician: Kenyetta Mohamud MD Primary Care Provider: Kenneth Baker PA-C Consult Narrative Reason for consult: Anemia hemoglobin 6.4/20.1 requiring blood transfusion History of present illness: 49 years old male evaluated request of the internal medicine team Patient presented with headache and chest pain to the ER subsequently got admitted Complicated past medical history of right thoracentesis which showed malignant cells on 02/03/2025 thoracentesis It was also thought that the malignancy is GI in origin patient has widespread osteoblastic lesions as well as a right upper lobe 2.2 cm mass with bilateral pleural effusion On 04/30/[address] scan of the abdomen pelvis with contrast which showed bilateral pneumonia large right-sided pleural effusion and Pleurx catheter in place On admission on 05/07/[address] done which showed right hemithorax empyema moderate left-sided pleural effusion 32 mm mass right upper lobe and widespread osteoblastic metastatic disease On 05/05/2025 patient of the right iliac crest biopsy which was inconclusive No history of any GI bleeding in the form of hematemesis melena and hematochezia Patient currently on cefepime and vancomycin IV Zosyn has been discontinued cc:: cc: Kenyetta Mohamud MD Review of Systems Review of Systems Systems Reviewed: All systems reviewed, normal except as documented Past Medical History Surgical History OTHER SURGICAL HX: As in the history of present illness Meds Home Medications and Allergies Home Medications ?Medication ?Instructions ?Recorded ?Confirmed ?Type acetaminophen 650 mg 650 mg PO Q8H PRN pain 03/23/25 05/07/25 History tablet,extended release (8 Hour Pain Reliever) Allergies Allergy/AdvReac Type Severity Reaction Status Date / Time Penicillins Allergy Intermediate RASH Verified 05/03/25 13:36 Exam Vital Signs Temp Pulse Resp BP Pulse Ox O2 Del Method O2 Flow Rate 97.5 F 110 H 26 H 124/85 H 97 Nasal Cannula 3 05/08/25 16:00 05/08/25 16:00 05/08/25 16:00 05/08/25 16:00 05/08/25 16:00 05/08/25 16:00 05/08/25 16:00 Constitutional Comments: Chronically ill-appearing Routine Respiratory Exam Comments: Decreased breath sounds bilaterally Routine Abdominal Exam Comments: Positive bowel sounds Results Labs 05/08/25 18:46 05/08/25 04:15 Labs: Short CBC 05/08/25 05/08/25 Range/Units 04:15 12:35 WBC 9.4 (3.8-10.6) Thou/mm3 Hgb 7.1 L 6.5 L* (13.5-16.0) g/dL Hct 21.0 L* 18.8 L* (41.0-53.0) % Plt Count 64 L (140-440) Thou/mm3 BMP 05/08/25 04:15 Sodium 137 Potassium 4.3 Chloride 101 Carbon Dioxide 26.2 BUN 10 Creatinine 0.5 L Glucose 112 H Calcium 8.7 Liver Function 05/08/25 Range/Units 04:15 Total Bilirubin 1.4 H (0.3-1.2) mg/dL AST 23 (0-34) U/L ALT 15 (10-49) U/L Alkaline Phosphatase 756 H D (46-116) U/L Albumin 3.5 (3.5-5.0) gm/dL Assessment and Plan Additional Assessment & Plan Additional Plan: # Anemia multifactorial most likely due to widespread osteoblastic disease No evidence of viv GI bleeding The problem is the malignancy is being thought of as a primary from the GI tract on a preliminary thoracentesis done on 02/03/2025 I will speak with Dr. 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
[2025-05-08 18:29] LABS: Immature Reticulocyte Fraction 42.8 % (2.3-13.4); Reticulocyte % (Auto) 4.0 % (0.5-1.5); Reticulocyte Absolute Auto 94.3 Biln/L (25.0-75.0); Reticulocyte Hgb Content 31.2 pg (28.0-35.0)
[2025-05-08 18:37] LABS: Iron 94 mcg/dL (65-175); Percent Iron Saturation 51 % (20-55); Total Iron Binding Capacity 184 mcg/dL (250-425); Unsaturated Iron Binding 90 (225-295)
[2025-05-08 18:55] LABS: Hematocrit 22.0 % (41.0-53.0)
[2025-05-08 18:59] LABS: Hemoglobin 7.7 g/dL (13.5-16.0)
[2025-05-08] MEDS: guaiFENesin SYRUP 200 MG/10 ML UDC 100 MG PO (21:17)
--- NOTE | 2025-05-08 21:19 | PC.NURSE ---
PT C/O INCREASED PLEURITIC CP WITH PRODUCTIVE COUGH. SPOKE WITH DR. VEGA MARTINEZ, NEW ORDERS TO BE PLACED FOR COUGH MEDICINE.
[2025-05-09] VITALS (16 sets, daily range): BP systolic 110–124; BP diastolic 69–85; PULSE 100–163; RESP 15–34; TEMP 35.9–37.1; O2SAT 93–96
[2025-05-09] MEDS: CEFEPIME INJ 2 GM in SODIUM CHLORIDE 0.9% (Popper) 50 ML IV ×3 (05:34→21:24)
[2025-05-09] MEDS: VANCOMYCIN/NS 1 GM IVPB 200 ML IV ×3 (05:35→22:46)
[2025-05-09] MEDS: MORPHINE SULF INJ 10 MG/ML VIAL 2 MG IVP ×3 (05:41→21:31)
[2025-05-09] MEDS: guaiFENesin SYRUP 200 MG/10 ML UDC 100 MG PO ×2 (05:44→14:10)
[2025-05-09 06:15] LABS: Basophils # (Auto) 0.1 Thou/mm3 (0.0-0.2); Basophils % (Auto) 1 % (0-2.5); Eosinophils # (Auto) 0.3 Thou/mm3 (0.0-0.5); Eosinophils % (Auto) 4 % (0-10); Hematocrit 22.3 % (41.0-53.0); Immature Granulocytes Auto 0.91 Thou/mm3 (0.00-0.00); Lymphocytes # (Auto) 1.5 Thou/mm3 (1.0-4.8); Lymphocytes % (Auto) 17 % (10-50); Mean Corpuscular HGB Conc 33.6 g/dl (31.0-37.0); Mean Corpuscular Hemoglobin 28.5 pg (25.0-35.0); Mean Corpuscular Volume 85 fL (80-100); Monocytes # (Auto) 0.7 Thou/mm3 (0.0-0.8); Monocytes % (Auto) 8 % (0-12); Neutrophils # (Auto) 5.3 Thou/mm3 (1.8-7.7); Neutrophils % (Auto) 60 % (37-80); Nucleated Red Blood Cell # 0.71 Thou/mm3 (0.00-0.00); Nucleated Red Blood Cell % 8 /100 WBC (0); RDW Standard Deviation 55.6 fL (35.1-43.9); Red Blood Count 2.63 Miln/mm3 (4.50-5.90); White Blood Count 8.9 Thou/mm3 (3.8-10.6)
[2025-05-09 06:19] LABS: Hemoglobin 7.5 g/dL (13.5-16.0); Platelet Count 47 Thou/mm3 (140-440)
[2025-05-09 06:41] LABS: Alanine Aminotransferase 20 U/L (10-49); Albumin, Serum 3.4 gm/dL (3.5-5.0); Albumin/Globulin Ratio 1.4 (1.2-2.2); Alkaline Phosphatase 717 U/L (46-116); Anion Gap 9 (7-16); Aspartate Amino Transferase 28 U/L (0-34); BUN/Creatinine Ratio 16 Ratio (12-20); Bilirubin,Total 1.5 mg/dL (0.3-1.2); Blood Urea Nitrogen 8 mg/dL (9-23); Calcium 8.6 mg/dL (8.3-10.6); Calcium (Corrected) 9.1 mg/dL (8.5-10.1); Carbon Dioxide 27.8 mMol/L (20.0-31.0); Chloride 101 mMol/L (98-107); Creatinine (Component) 0.5 mg/dL (0.6-1.3); Estimated Creatinine Clearance 159.5 mL/min (>60); Globulin 2.4 gm/dL (2.3-3.5); Glucose 115 mg/dL (74-106); INR 1.3 (0.9-1.3); LDH (Lactate Dehydrogenase) 524 U/L (120-246); Magnesium 1.9 mg/dL (1.6-2.6); Osmolality,Calculated 274 (275-295); Partial Thromboplastin Time 42.9 Seconds (22.0-36.0); Phosphorous 3.8 mg/dL (2.4-5.1); Potassium 4.3 mMol/L (3.4-5.1); Prothrombin Time 14.1 Seconds (9.0-12.2); Slide Review Platelets confirmed; Sodium 138 mMol/L (136-145); Total Protein 5.8 gm/dL (5.7-8.2); eGFR > 60 See Note
--- NOTE | 2025-05-09 13:05 | PD.PUCONS ---
[facility] Pulmonology Consult Data of Consult Requesting Physician: Kenyetta Mohamud MD Primary Care Provider: Kenneth Baker PA-C Consult Narrative History of present illness: Patient is a 49 year old male with PMH significant for right malignant pleural effusion complicated by anemia and thrombocytopenia and now wit new left sided pleural effusion. Repeated admissions for dyspnea. Pending ID of originating source, suspected GI etiology. GI workup for malignancy- negative MRCP, pending EGD as well. Patient getting transfused repeatedly with PRBC. No bleeding overtly but prior admission with hemothorax by cell counts. HD stable and stable without transfusion with ability to discharge. Now returning with recurrence. INR stable, PLT low. Transfusion today again. Request for assitance with left sided effusion. Agreeable to thoracentesis today. Right pleurex drained with 450cc of bloody output as well. cc:: cc: Kenyetta Mohamud MD Review of Systems Review of Systems Narrative Review of Systems: Pertinent ROS completed with significant findings in HPI above. Past Medical History Past Medical History Comments PMH COMMENT: PMH, PSH, Fam Hx, and Soc HX reviewed, mclaughlin findings in HPI above. Meds Home Medications and Allergies Home Medications ?Medication ?Instructions ?Recorded ?Confirmed ?Type acetaminophen 650 mg 650 mg PO Q8H PRN pain 03/23/25 05/07/25 History tablet,extended release (8 Hour Pain Reliever) Allergies Allergy/AdvReac Type Severity Reaction Status Date / Time Penicillins Allergy Intermediate RASH Verified 05/03/25 13:36 Exam Vital Signs Temp Pulse Resp BP Pulse Ox O2 Del Method O2 Flow Rate 98.1 F 106 H 13 119/76 94 L Nasal Cannula 2 05/10/25 05:03 05/10/25 05:03 05/10/25 05:03 05/10/25 05:03 05/10/25 05:03 05/10/25 04:00 05/10/25 05:03 Narrative Exam GEN: NAD, able to speak in full sentences HEENT: MMM, EOMI NECK: no JVD, supple CVS: S1/S2+ tachycardic PULM: Absent BS at right base CHEST: Healed incisions, no bleeding ABD: soft, NT, ND, BS+ EXT: no cyanosis or clubbing, no pedal edema NEURO: Nonfocal on gross exam PSYCH: Approrpiate mood/ affect Physical Exam Completion Physical Exam Complete?: Yes Results - Map Maker Labs 05/10/25 00:15 05/09/25 05:41 Labs: Short CBC 05/09/25 05/09/25 05/10/25 Range/Units 05:41 17:33 00:15 WBC 8.9 (3.8-10.6) Thou/mm3 Hgb 7.5 L 6.1 L* 6.9 L* (13.5-16.0) g/dL Hct 22.3 L 17.4 L* 20.2 L* (41.0-53.0) % Plt Count 47 L D (140-440) Thou/mm3 BMP 05/09/25 05:41 Sodium 138 Potassium 4.3 Chloride 101 Carbon Dioxide 27.8 BUN 8 L Creatinine 0.5 L Glucose 115 H Calcium 8.6 Liver Function 05/09/25 Range/Units 05:41 Total Bilirubin 1.5 H (0.3-1.2) mg/dL AST 28 (0-34) U/L ALT 20 (10-49) U/L Alkaline Phosphatase 717 H D (46-116) U/L Albumin 3.4 L (3.5-5.0) gm/dL Assessment & Plan Additional Plan Additional Plan: Malignant effusion Left pleural effusion Suspect same malignancy related etiology Borderline platelet count but no significant bleed with procedure today, chest film with no post procedure PTX- 1.3L removed also bloody effusion though less cellular than drainage form pleurex today Await fluid analysis and cytology Patient with bloody output from right pleura still, may warrant assessment by thoracic surgery given this is limiting his ability to get to next phase of oncology care. His cell counts all being low warrants evaluation for DIC as well though INR preserved, check fibrinogen- negative recent BM biopsy (nondiagnostic) and peripheral smear ( anemia/ thrombocytopenia, left shift) as well Remain available for any questions Provider Notation Provider Notation: Although this document has been carefully reviewed, there may still be some phonetic and other typographical errors. These errors are purely grammatical due to imperfections in the software program and should not be construed in any way to compromise the substance of the patient's medical care during this visit. Thank you for the opportunity and privilege in assisting you with this patient's care and management.
--- NOTE | 2025-05-09 14:19 | PC.NURSE ---
Vamp Liner and residents at bedside obtaining consent for thoracentisis
--- NOTE | 2025-05-09 15:39 | XR_ITS ---
Examination: AP chest single view Technique: Portable sitting AP chest single view Date and time: May 09, 2025, 1549 hrs. Comparison May 07, 2025 Indications: Postthoracentesis Findings: Pleural parenchymal disease right hemithorax No pneumothorax Right Pleurx catheter Right Port-A-Cath satisfactory position. Mild enlargement cardiac contour Significant vascular congestion. Impression: No pneumothorax.
--- NOTE | 2025-05-09 15:55 | PD.RESPRO ---
Documentation for date of: 05/09/25 Subjective Subjective Interval history: No overnight events. Patient seen and examined at bedside, resting comfortably. Endorses mild shortness of breath, denies fevers, chills, chest pain, nausea, vomiting. 500ml bloody fluid drained from R side pleurex cath. Patient received left side thoracentesis with 1.4 L fluid removal, studies pending. NPO after midniught, plan for endocopy tomorrow. Exam Vital Signs Temp Pulse Resp BP Pulse Ox O2 Del Method O2 Flow Rate 97.0 F 112 H 18 114/80 94 L Nasal Cannula 2 05/09/25 12:00 05/09/25 12:00 05/09/25 12:00 05/09/25 12:00 05/09/25 12:00 05/09/25 12:05/09/25 12:00 Narrative Exam GENERAL APPEARANCE: Patient is AO x 3,pale. lean body habitis in no acute distress. Saturating well 2 LPM HEENT: NC, AT. MMM. EOMI, clear conjunctiva, NECK: No stiffness or restricted ROM. Port A cath clean and dry. HEART: Sinus tachycardia with regular rhythm, normal S1/S2, no m/r/g LUNGS: Decreased breath sounds on right side and breath sounds appreciable on left side. PleurX catheter on right side. ABDOMEN: Soft, nontender, nondistended with bowel sounds heard. BACK: No CVAT, no obvious deformity. EXTREMITIES: Without cyanosis, clubbing or edema. NEUROLOGICAL: Grossly nonfocal. Alert and oriented, moving all 4 extremities. CN not formally tested but appear grossly intact. Observed to ambulate with normal gait. Skin: Warm and dry without any rash. Psych: Appropriate mood and affect Objective Labs 05/10/25 00:15 05/09/25 05:41 Labs: Laboratory Results - last 24 hr 05/07/25 05/08/25 05/08/25 02:52 04:15 12:35 WBC RBC Hgb Hct MCV MCH MCHC RDW Std Deviation Plt Count Neut % (Auto) Lymph % (Auto) [place] % (Auto) Eos % (Auto) Baso % (Auto) Neut # (Auto) Lymph # (Auto) [place] # (Auto) Eos # (Auto) Baso # (Auto) Immature Gran # (Auto) Absolute Nucleated RBC Immature Gran % Nucleated RBC % Retic Count (auto) 4.0 H Absolute Retic 94.3 H Immature Retic Fraction 42.8 H Retic Hgb Content CHr 31.2 PT INR APTT Sodium Potassium Chloride Carbon Dioxide Anion Gap BUN Creatinine Estim Creat Clear Calc eGFR BUN/Creatinine Ratio Glucose Calculated Osmolality Calcium Corrected Calcium Phosphorus Magnesium Iron 94 TIBC 184 L Iron Saturation 51 Unsat Iron Binding 90 L Total Bilirubin AST ALT Alkaline Phosphatase Lactate Dehydrogenase Total Protein Albumin Globulin Albumin/Globulin Ratio Misc Test Result Crossmatch See Detail 05/08/25 05/09/25 18:46 05:41 WBC 8.9 RBC 2.63 L Hgb 7.7 L 7.5 L Hct 22.0 L 22.3 L MCV 85 MCH 28.5 MCHC 33.6 RDW Std Deviation 55.6 H Plt Count 47 L D Neut % (Auto) 60 Lymph % (Auto) 17 [place] % (Auto) 8 Eos % (Auto) 4 Baso % (Auto) 1 Neut # (Auto) 5.3 Lymph # (Auto) 1.5 [place] # (Auto) 0.7 Eos # (Auto) 0.3 Baso # (Auto) 0.1 Immature Gran # (Auto) 0.91 H Absolute Nucleated RBC 0.71 H Immature Gran % 10 H Nucleated RBC % 8 H Retic Count (auto) Absolute Retic Immature Retic Fraction Retic Hgb Content CHr PT 14.1 H INR 1.3 APTT 42.9 H Sodium 138 Potassium 4.3 Chloride 101 Carbon Dioxide 27.8 Anion Gap 9 BUN 8 L Creatinine 0.5 L Estim Creat Clear Calc 159.5 eGFR > 60 BUN/Creatinine Ratio 16 Glucose 115 H Calculated Osmolality 274 L Calcium 8.6 Corrected Calcium 9.1 Phosphorus 3.8 Magnesium 1.9 Iron TIBC Iron Saturation Unsat Iron Binding Total Bilirubin 1.5 H AST 28 ALT 20 Alkaline Phosphatase 717 H D Lactate Dehydrogenase 524 H Total Protein 5.8 Albumin 3.4 L Globulin 2.4 Albumin/Globulin Ratio 1.4 Misc Test Result Platelets confirmed Crossmatch Quality Measures Quality Measures VTE prophylaxis Assessment & Plan Assessment Current Active Medications: Generic Name Dose Route Start Last Admin Trade Name Freq PRN Reason Stop Dose Admin Acetaminophen 650 mg 05/07/25 04:49 Acetaminophen 325 Mg Tablet PO 06/06/25 04:48 Q6H PRN Pain 1-3 and / or fever >100.1 Hydrocodone Bitart/Acetaminophen 1 tab 07/04/25 04:49 05/09/25 09:41 Hydrocodone/Apap 10/325 Tab PO 05/12/25 04:48 1 tab Q4H PRN Administration PAIN SCALE 4-6 (Moderate Guaifenesin 100 mg 05/08/25 21:09 05/09/25 14:10 Guaifenesin Syrup 200 Mg/10 Ml Udc PO 06/07/25 21:08 100 mg QID PRN Administration COUGH Protocol Vancomycin/Sodium Chloride 200 mls @ 120 mls/hr 05/07/25 22:00 05/09/25 13:59 Vancomycin/Ns 1 Gm Ivpb IV 05/14/25 21:59 120 mls/hr Q8HR JUAN JOSE Administration Protocol Cefepime HCl 2 gm/ Sodium 50 mls @ 100 mls/hr 05/07/25 10:15 05/09/25 13:50 Chloride IV 05/14/25 10:14 100 mls/hr Q8HR JUAN JOSE Administration Morphine Sulfate 2 mg 05/07/25 04:49 05/09/25 13:59 Morphine Sulf Inj 10 Mg/Ml Vial IVP 05/12/25 04:48 2 mg Q6H PRN Administration PAIN SCALE 7-10 (Severe Ondansetron HCl 4 mg 05/07/25 04:49 05/07/25 07:51 Ondansetron Inj 2 Mg/Ml Inj 2 Ml IVP 06/06/25 04:48 4 mg Q6H PRN Administration NAUSEA OR VOMITING Protocol Pantoprazole Sodium 40 mg 05/08/25 21:30 05/09/25 09:41 Pantoprazole Inj 40 Mg Vial IVP 06/07/25 21:29 40 mg BID JUAN JOSE Administration Pharmacy Consult 1 each 05/07/25 09:00 Vancomycin Pharmacy To Dose 1 Each Each IV 06/06/25 08:59 QDAY PRN CONSULT Sennosides 1 tab 05/07/25 04:49 05/09/25 05:44 Senna Tablet PO 06/06/25 04:48 1 tab QDAY PRN Administration constipation Protocol Plan Mr. 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 He was found to have empyema and right lung pneumonia and acute drop in hemoglobin, transfused 1 unit prbc on 05/07, post transfusion Hgb bumped appropriately, repeat hgb labs <7 on 05/08 so pt was transfused with 1unit prbc, follow up post transfusion h/h. Pt has had minimal workup of new GI cancer diagnosis, GI consulted, pending MRCP, Clears diet pending GI evaluation and recs. #Acute drop in hemoglobin #Chronic normocytic anemia #Chronic thrombocytopenia ? In the setting of malignancy Low hemoglobin of 6.5 and platelets of 64 likely 2/2 myelosuppression of bone marrow from infiltration of metastatic GI malignancy (WBC normal at 9.5) Myelosuppression hypothesis supported by presence of nucleated RBC's at 9/100 indicating abnormal bone marrow function May also be 2/2 underlying hemolytic anemia due to elevated LDH of 459, pt denies having a history of GI bleeds, no melena or bright red blood per rectum. Plan: ? 2 units PRBC transfused total (pt transfused 1 unit 05/07 and another on 05/08) ? PRBC if hemoglobin drops below 7 ? Bone marrow biopsy results pending ? Bleeding precautions #Community-acquired pneumonia ?In the setting of infection/empyema Initial CT chest impression: consolidations in the right middle and lower lobes. Absence of fever and lack of elevated WBC may be explained by myelosuppression of bone marrow 2/2 metastasis of osteoblastic lesions (anemia and thrombocytopenia present). Plan: ? Continue vancomycin and cefepime as patient is allergic to penicillin ? Bcx, NGTD @24 hrs - Sputum cultures pending, appear contaminated ? Monitor for signs of fever #Acute respiratory distress likely secondary to #Right-sided malignant effusion, and possible community-acquired pneumonia #Left-sided pleural effusion In the setting of metastatic GI malignancy mets to bones and lung Initial CT chest impression: loculated moderate right pleural effusion with air loculi inside suggestive of pleural empyema. Possibly 2/2 metastasis of GI malignancy to lungs and bone resulting in more frequent infections from immunocompromised status and recurrent pleural effusions. MR brain 05/07: No abnormal enhancing cerebellar or cerebral lesions Left sided thoracentesis performed 05/09, removed 1.4 L fluid, studies pending Plan: - follow up: Pleural fluid removed cytology - 650 cc removed from pleurvac 05/07, 500 cc removed 7/6 ? attached pleurvac with Pleurx catheter to drain empyema ? Will consider dornase to help with draining ? Consulted deck engineer, Dr. Bonds, appreciate recs. ? Monitor for signs of respiratory distress #History of metastatic GI malignancy mets to bones, lung with pulmonary nodules #Elevated T. bili with elevated ALP likely related to malignancy Patient did not start chemotherapy sessions till date. BM biopsy results were inconclusive. Pending PET scan. pending PET scan as an outpatient Plan: ?Follow-up with Dr. Schwartz as outpatient ?Brain MRI- Negative for mets -GI consulted, appreciate recs -NPO after midnight, plan for EGD tomorrow Health Maintenance: Disposition: Admitted for management of acute respiratory distress related to empyema and community-acquired pneumonia and acute blood loss anemia. Diet: Clears, NPO after midnight DVT prophylaxis: SCDs GI prophylaxis: Protonix 40 mg IV daily CODE STATUS: Full code Plan of care discussed with attending Dr. Brantley. Omid Segundo MD PGY-2 Attending Provider Attestation/Addendum I, Padmini Brantley, DO, attest that I was physically present for the mclaughlin portions of the service and evaluated the patient with the resident and I reviewed and discussed the case with the resident and agree with the resident's findings and plans of care as documented above Patient seen and eval this a.m. He has no active complaints at this time patient underwent thoracentesis by ICU team and had 1.4 L of fluid removed. Per real estate account executive, fluid was not as bloody as the fluid that was drained from the right chest. Pleurx catheter was also drained with about 500 mL of bloody fluid drained. Patient reported improvement after drainage. However, he was noted to be tachycardic and found to have a hemoglobin of 6.1. Will transfuse 1 unit of PRBCs and follow-up with posttransfusion H&H. Will also transfuse a unit of platelets due to active bleeding. Case discussed with real estate account executive, if patient continues to have copious bleeding resulting in acute blood loss anemia, there is concern that patient may not be able to undergo outpatient chemotherapy. Recommend possible transfer for cardiothoracic evaluation due to persistent bleeding. Fibrinogen levels pending. If low, concern for possible DIC and may need cryoprecipitate. Will continue to follow-up with cultures at this time. Patient is scheduled for endoscopy tomorrow. Continue clear liquid diet for now and n.p.o. after midnight. MRCP was done overnight and shows no intrahepatic biliary tract dilatation or solid appearing liver lesions. Patient's and daughter were updated at bedside. All question concerns addressed at bedside.
[2025-05-09 16:04] LABS: Pleural Fluid Mononuclear 72.0 %; Pleural Fluid Polynuclear 28.0 %; Pleural Fluid WBC 988 /cmm
[2025-05-09 16:05] LABS: Pleural Fluid Appearance Bloody; Pleural Fluid Color Red; Pleural Fluid RBC 56000 /cmm
[2025-05-09 16:26] LABS: Amylase,Pleural Fluid 25 IU/L; Glucose,Pleural Fluid 100 mg/dL; LDH,Pleural Fluid 473 IU/L; Protein Total,Pleural Fluid 3.6 g/dL
[2025-05-09] MEDS: RINGERS LACTATED 1000 ML 1,000 ML 999 ML IV (16:41)
--- NOTE | 2025-05-09 17:57 | ESPR_ITS ---
Documentation for date of: 05/09/25 Subjective Subjective Interval history: MRCP is negative Hemoglobin hematocrit after transfusion is 7.5 and 23.3 Will schedule upper endoscopy for tomorrow Case discussed with internal medicine team N.p.o. midnight tonight Exam Vital Signs Temp Pulse Resp BP Pulse Ox O2 Del Method O2 Flow Rate 98.1 F 163 H 22 H 124/81 95 Nasal Cannula 2 05/09/25 16:00 05/09/25 16:20 05/09/25 16:00 05/09/25 16:00 05/09/25 16:00 05/09/25 16:00 05/09/25 16:00 Objective Labs 05/09/25 05:41 05/09/25 05:41 Labs: Laboratory Results - last 24 hr 05/08/25 05/08/25 05/08/25 04:15 12:35 18:46 WBC RBC Hgb 7.7 L Hct 22.0 L MCV MCH MCHC RDW Std Deviation Plt Count Neut % (Auto) Lymph % (Auto) [place] % (Auto) Eos % (Auto) Baso % (Auto) Neut # (Auto) Lymph # (Auto) [place] # (Auto) Eos # (Auto) Baso # (Auto) Immature Gran # (Auto) Absolute Nucleated RBC Immature Gran % Nucleated RBC % Retic Count (auto) 4.0 H Absolute Retic 94.3 H Immature Retic Fraction 42.8 H Retic Hgb Content CHr 31.2 PT INR APTT Sodium Potassium Chloride Carbon Dioxide Anion Gap BUN Creatinine Estim Creat Clear Calc eGFR BUN/Creatinine Ratio Glucose Calculated Osmolality Calcium Corrected Calcium Phosphorus Magnesium Iron 94 TIBC 184 L Iron Saturation 51 Unsat Iron Binding 90 L Total Bilirubin AST ALT Alkaline Phosphatase Lactate Dehydrogenase Total Protein Albumin Globulin Albumin/Globulin Ratio Pleural Color Pleural Appearance Pleural WBC Pleural RBC Pleural Polynuclear WBC Pleural Mononuclear WBC Pleural Total Protein Pleural LDH Pleural Glucose Pleural Amylase Misc Test Result 05/09/25 05/09/25 05:41 15:15 WBC 8.9 RBC 2.63 L Hgb 7.5 L Hct 22.3 L MCV 85 MCH 28.5 MCHC 33.6 RDW Std Deviation 55.6 H Plt Count 47 L D Neut % (Auto) 60 Lymph % (Auto) 17 [place] % (Auto) 8 Eos % (Auto) 4 Baso % (Auto) 1 Neut # (Auto) 5.3 Lymph # (Auto) 1.5 [place] # (Auto) 0.7 Eos # (Auto) 0.3 Baso # (Auto) 0.1 Immature Gran # (Auto) 0.91 H Absolute Nucleated RBC 0.71 H Immature Gran % 10 H Nucleated RBC % 8 H Retic Count (auto) Absolute Retic Immature Retic Fraction Retic Hgb Content CHr PT 14.1 H INR 1.3 APTT 42.9 H Sodium 138 Potassium 4.3 Chloride 101 Carbon Dioxide 27.8 Anion Gap 9 BUN 8 L Creatinine 0.5 L Estim Creat Clear Calc 159.5 eGFR > 60 BUN/Creatinine Ratio 16 Glucose 115 H Calculated Osmolality 274 L Calcium 8.6 Corrected Calcium 9.1 Phosphorus 3.8 Magnesium 1.9 Iron TIBC Iron Saturation Unsat Iron Binding Total Bilirubin 1.5 H AST 28 ALT 20 Alkaline Phosphatase 717 H D Lactate Dehydrogenase 524 H Total Protein 5.8 Albumin 3.4 L Globulin 2.4 Albumin/Globulin Ratio 1.4 Pleural Color Red Pleural Appearance Bloody Pleural WBC 988 Pleural RBC 24585 Pleural Polynuclear WBC 28.0 Pleural Mononuclear WBC 72.0 Pleural Total Protein 3.6 Pleural LDH 473 Pleural Glucose 100 Pleural Amylase 25 Misc Test Result Platelets confirmed Impressions Impression: Anemia multifactorial requiring blood transfusion Metastatic disease of GI origin Right lung empyema Plan N.p.o. midnight tonight Consent obtained for fiberoptic esophagogastroduodenoscopy with possible biopsy possible therapeutic intervention under intravenous moderate sedation Procedure have been scheduled for tomorrow Assessment & Plan A&P Narrative # Anemia multifactorial most likely due to widespread osteoblastic disease No evidence of viv GI bleeding The problem is the malignancy is being thought of as a primary from the GI tract on a preliminary thoracentesis done on 02/03/2025 I will speak with Dr. 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
[2025-05-09 18:33] LABS: Hematocrit 17.4 % (41.0-53.0); Hemoglobin 6.1 g/dL (13.5-16.0)
[2025-05-09 19:37] LABS: Fibrinogen 239 mg/dL (175-375)
[2025-05-09 21:48] LABS: Folate 13.19 ng/mL (>5.38); Vitamin B12 358 pg/mL (211-911)
[2025-05-10] VITALS (23 sets, daily range): BP systolic 110–138; BP diastolic 69–86; PULSE 104–129; RESP 12–31; TEMP 36.3–37.4; O2SAT 93–117; BMI 23.9
[2025-05-10 00:29] LABS: Hematocrit 20.2 % (41.0-53.0)
[2025-05-10 00:33] LABS: Hemoglobin 6.9 g/dL (13.5-16.0)
[2025-05-10] MEDS: guaiFENesin SYRUP 200 MG/10 ML UDC 100 MG PO (01:45)
[2025-05-10] MEDS: MORPHINE SULF INJ 10 MG/ML VIAL 2 MG IVP ×2 (04:36→11:30)
[2025-05-10] MEDS: CEFEPIME INJ 2 GM in SODIUM CHLORIDE 0.9% (Popper) 50 ML IV ×3 (05:15→21:17)
[2025-05-10] MEDS: VANCOMYCIN/NS 1 GM IVPB 200 ML IV ×3 (06:31→21:17)
--- NOTE | 2025-05-10 07:30 | ESPR_ITS ---
Documentation for date of: 05/10/25 Subjective Subjective Interval history: - pt reports he still has pleuritic chest pain. unchanged from prior. - overnight pt Hgb drop <7, got 2 units PRBC and 1 unit of platlets, post transfusion H/H: Hgb 8.6 - pt NPO with plan for endoscopy with GI today - s/p thorocentesis yesterday, with bloody fluid draining Exam Vital Signs Temp Pulse Resp BP Pulse Ox O2 Del Method O2 Flow Rate 97.7 F 111 H 31 H 138/86 H 99 Nasal Cannula 2 05/10/25 06:36 05/10/25 06:36 05/10/25 06:36 05/10/25 06:36 05/10/25 06:36 05/10/25 04:00 05/10/25 06:36 Vitals over the past 24hours were reviewed: Temp: Afebrile HR: tachycardic 100s-110 BP: wnl RR: tachypnic,. On exam pt is breathing with nl wob on RA Narrative Exam GENERAL APPEARANCE: Patient is AO x 3,pale. lean body habitis in no acute distress. pt sitting upright in bed HEENT: NC, AT. MMM. EOMI, NECK: No stiffness or restricted ROM. Port A cath clean and dry. HEART: Sinus tachycardia with regular rhythm, normal S1/S2, no m/r/g LUNGS: Decreased breath sounds on right side and breath sounds appreciable on left side. PleurX catheter on right side. ABDOMEN: Soft, nontender, nondistended with bowel sounds heard. BACK: No CVAT, no obvious deformity. EXTREMITIES: Without cyanosis, clubbing or edema. NEUROLOGICAL: Grossly nonfocal. Alert and oriented, moving all 4 extremities. CN not formally tested but appear grossly intact. Skin: Warm and dry without any rash. Psych: Appropriate mood and affect Objective Labs 05/11/25 05:48 05/11/25 05:48 Labs: Laboratory Results - last 24 hr 05/07/25 05/08/25 05/09/25 02:52 04:15 15:15 Hgb Hct Fibrinogen Vitamin B12 358 Folate 13.19 Pleural Color Red Pleural Appearance Bloody Pleural WBC 988 Pleural RBC 77325 Pleural Polynuclear WBC 28.0 Pleural Mononuclear WBC 72.0 Pleural Total Protein 3.6 Pleural LDH 473 Pleural Glucose 100 Pleural Amylase 25 Blood Type A Positive Antibody Screen NEGATIVE Direct Antiglob Test Negative Crossmatch See Detail Blood Bank Wristband ID Yes Blood Bank Comment PLATP Ready 05/09/25 05/10/25 05/10/25 17:33 00:15 03:10 Hgb 6.1 L* 6.9 L* Hct 17.4 L* 20.2 L* Fibrinogen 239 Vitamin B12 Folate Pleural Color Pleural Appearance Pleural WBC Pleural RBC Pleural Polynuclear WBC Pleural Mononuclear WBC Pleural Total Protein Pleural LDH Pleural Glucose Pleural Amylase Blood Type A Positive Antibody Screen NEGATIVE Direct Antiglob Test Crossmatch See Detail Blood Bank Wristband ID Yes Blood Bank Comment Quality Measures Quality Measures VTE prophylaxis Assessment & Plan Assessment Current Active Medications: Generic Name Dose Route Start Last Admin Trade Name Freq PRN Reason Stop Dose Admin Acetaminophen 650 mg 05/07/25 04:49 Acetaminophen 325 Mg Tablet PO 06/06/25 04:48 Q6H PRN Pain 1-3 and / or fever >100.1 Hydrocodone Bitart/Acetaminophen 1 tab 05/07/25 04:49 05/10/25 06:32 Hydrocodone/Apap 10/325 Tab PO 05/12/25 04:48 1 tab Q4H PRN Administration PAIN SCALE 4-6 (Moderate Guaifenesin 100 mg 05/08/25 21:09 05/10/25 01:45 Guaifenesin Syrup 200 Mg/10 Ml Udc PO 06/07/25 21:08 100 mg QID PRN Administration COUGH Protocol Vancomycin/Sodium Chloride 200 mls @ 120 mls/hr 05/07/25 22:00 05/10/25 06:31 Vancomycin/Ns 1 Gm Ivpb IV 05/14/25 21:59 120 mls/hr Q8HR JUAN JOSE Administration Cefepime HCl 2 gm/ Sodium 50 mls @ 100 mls/hr 05/07/25 10:15 05/10/25 05:15 Chloride IV 05/14/25 10:14 100 mls/hr Q8HR JUAN JOSE Administration Morphine Sulfate 2 mg 05/07/25 04:49 05/10/25 04:36 Morphine Sulf Inj 10 Mg/Ml Vial IVP 05/12/25 04:48 2 mg Q6H PRN Administration PAIN SCALE 7-10 (Severe Ondansetron HCl 4 mg 05/07/25 04:49 05/07/25 07:51 Ondansetron Inj 2 Mg/Ml Inj 2 Ml IVP 06/06/25 04:48 4 mg Q6H PRN Administration NAUSEA OR VOMITING Protocol Pantoprazole Sodium 40 mg 05/08/25 21:30 05/09/25 20:12 Pantoprazole Inj 40 Mg Vial IVP 06/07/25 21:29 40 mg BID JUAN JOSE Administration Pharmacy Consult 1 each 05/07/25 09:00 Vancomycin Pharmacy To Dose 1 Each Each IV 06/06/25 08:59 QDAY PRN CONSULT Sennosides 1 tab 05/07/25 04:49 05/09/25 05:44 Senna Tablet PO 06/06/25 04:48 1 tab QDAY PRN Administration constipation Protocol Plan Mr. 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 He was found to have empyema and right lung pneumonia and acute drops in hemoglobin, Pt fibringen wnl. Pt has required multiple transfusions with 4x PRBC and 1x platelet. . Pt has had minimal workup of new GI cancer diagnosis, MRCP unremarkable, GI consulted, pending EGD today. #Multiple Acutes drop in hemoglobin requiring transfusion #Chronic normocytic anemia #Chronic thrombocytopenia ? In the setting of malignancy Low hemoglobin of 6.5 and platelets of 64 likely 2/2 myelosuppression of bone marrow from infiltration of metastatic GI malignancy (WBC normal at 9.5) Myelosuppression hypothesis supported by presence of nucleated RBC's at 9/100 indicating abnormal bone marrow function May also be 2/2 underlying hemolytic anemia due to elevated LDH of 459, Fibrinogen wnl pt denies having a history of GI bleeds, no melena or bright red blood per rectum. Plan: ? 4 units PRBC transfused total ? PRBC if hemoglobin drops below 7 ? Bone marrow biopsy results pending ? Bleeding precautions #Community-acquired pneumonia ?In the setting of infection/empyema Initial CT chest impression: consolidations in the right middle and lower lobes. Absence of fever and lack of elevated WBC may be explained by myelosuppression of bone marrow 2/2 metastasis of osteoblastic lesions (anemia and thrombocytopenia present). Plan: ? Continue vancomycin and cefepime as patient is allergic to penicillin ? Bcx, NGTD @48 hrs - Sputum cultures 4+ mixed oral christal , appear contaminated ? Monitor for signs of fever #Acute respiratory distress likely secondary to #Right-sided malignant effusion, and possible community-acquired pneumonia #Left-sided pleural effusion In the setting of metastatic GI malignancy mets to bones and lung Initial CT chest impression: loculated moderate right pleural effusion with air loculi inside suggestive of pleural empyema. Possibly 2/2 metastasis of GI malignancy to lungs and bone resulting in more frequent infections from immunocompromised status and recurrent pleural effusions. MR brain 05/07: No abnormal enhancing cerebellar or cerebral lesions Left sided thoracentesis performed 05/09, removed 1.4 L fluid, Bloody, wbc: 988 RBC 27882, LDH 473 Plan: - 650 cc removed from RIGHT pleurvac 05/07, 500 cc removed 05/09 ? attached pleurvac with Pleurx catheter to drain empyema ? Will consider dornase to help with draining ? Consulted embroidery patternmaker, Dr. Bonds, appreciate recs. ? Monitor for signs of respiratory distress #History of metastatic GI malignancy mets to bones, lung with pulmonary nodules #Elevated T. bili with elevated ALP likely related to malignancy Patient did not start chemotherapy sessions till date. BM biopsy results were inconclusive. pending PET scan as an outpatient Plan: ?Follow-up with Dr. Schwartz as outpatient ?Brain MRI- Negative for mets -GI consulted, appreciate recs -NPO pending EGD today Health Maintenance: Disposition: Admitted for management of acute respiratory distress related to empyema and community-acquired pneumonia and acute blood loss anemia. Diet: Clears, NPO after midnight DVT prophylaxis: SCDs GI prophylaxis: Protonix 40 mg IV daily CODE STATUS: Full code Case discussed with my attending Dr. Karon Lester MD PGY-1 Attending Provider Attestation/Addendum Padmini Key, DO, attest that I was physically present for the mclaughlin portions of the service and evaluated the patient with the resident and I reviewed and discussed the case with the resident and agree with the resident's findings and plans of care as documented above Patient seen and evaluated this AM. He states that he is doing ok. No acute events overnight. He continues to have mild pleuritic chest pain. Pending EGD this afternoon. H/H stable. Will f/u with EGD results. Patient in no respiratory distress. Diminished breath sounds in right lower lung [place].
--- NOTE | 2025-05-10 08:35 | PD.ONCCONS ---
HPI Data of Consult Requesting Physician: Kenyetta Mohamud MD Primary Care Provider: Kenneth Baker PA-C Consult Narrative Reason for consult: Widespread mets suspected GI primary. 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 Has since had right Pleurx catheter placed, as he was coming in for multiple thoracentesis to alleviate breathing problems. Also needed multiple packed cell transfusions. Immunohistochemistry of pleural fluid cytology suggested upper GI or pancreatic biliary carcinoma. CA 19?9 was elevated at 173, and patient's alk phos quite high in the 700s. LFTs AST ALT not elevated, with bili 1.5. Chest CT 05/07/2025, revealed a 32 mm pulmonary mass right upper lobe not described previously, along with extensive right lung pneumonia and suspicious for right hemithorax empyema. Bone mets noted. CT-guided needle biopsy iliac crest 05/05/25 was inconclusive. 05/08/2025 MRCP showing hepatomegaly 19 cm with no intrahepatic biliary tract dilatation or solid appearing liver lesions and normal common hepatic common bile duct and no common bile duct stones. Patient has been seen by Dr. Watson evp managing director who reportedly be performing upper endoscopy today. cc:: cc: Kenyetta Mohamud MD Past Medical History Family History OTHER FAMILY HX: 1 sister of ovarian cancer age 40 Past Medical History Comments PMH COMMENT: History of pneumonia Meds Home Medications and Allergies Home Medications ?Medication ?Instructions ?Recorded ?Confirmed ?Type acetaminophen 650 mg 650 mg PO Q8H PRN pain 03/23/25 05/07/25 History tablet,extended release (8 Hour Pain Reliever) Allergies Allergy/AdvReac Type Severity Reaction Status Date / Time Penicillins Allergy Intermediate RASH Verified 05/03/25 13:36 Exam Vital Signs Temp Pulse Resp BP Pulse Ox O2 Del Method O2 Flow Rate 98.4 F 104 H 18 117/76 97 Nasal Cannula 2 05/10/25 08:00 05/10/25 08:00 05/10/25 08:00 05/10/25 08:00 05/10/25 08:00 05/10/25 08:00 05/10/25 08:00 Narrative Exam Appearing comfortable this a.m. Results Labs 05/10/25 00:15 05/09/25 05:41 Labs: Short CBC 05/09/25 05/10/25 Range/Units 17:33 00:15 Hgb 6.1 L* 6.9 L* (13.5-16.0) g/dL Hct 17.4 L* 20.2 L* (41.0-53.0) % Assessment and Plan Additional Assessment & Plan Additional Plan: 1. 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 CA 19?9 alk phos considerably elevated, 2. To benefit from modern cancer therapy including immunotherapy or targeted therapy in this young patient who is motivated to get what ever treatment may benefit him, tissue diagnosis would be needed. 3. Iliac crest biopsy in patient with suspected bone mets was negative for malignancy 4. Chest CT reveals apparently new 32 mm pulmonary mass right upper lobe along with significant right hemithorax empyema and pneumonia. 4. MRCP unremarkable and Dr. Watson scheduling patient for upper endoscopy today. 6. Will follow. Thank for allowing me to evaluate this patient again.
[2025-05-10 13:04] LABS: Basophils # (Auto) 0.1 Thou/mm3 (0.0-0.2); Basophils % (Auto) 1 % (0-2.5); Eosinophils # (Auto) 0.4 Thou/mm3 (0.0-0.5); Eosinophils % (Auto) 5 % (0-10); Hematocrit 24.7 % (41.0-53.0); Immature Granulocytes Auto 0.87 Thou/mm3 (0.00-0.00); Lymphocytes # (Auto) 1.6 Thou/mm3 (1.0-4.8); Lymphocytes % (Auto) 18 % (10-50); Mean Corpuscular HGB Conc 34.8 g/dl (31.0-37.0); Mean Corpuscular Hemoglobin 27.9 pg (25.0-35.0); Mean Corpuscular Volume 80 fL (80-100); Monocytes # (Auto) 0.6 Thou/mm3 (0.0-0.8); Monocytes % (Auto) 7 % (0-12); Neutrophils # (Auto) 5.3 Thou/mm3 (1.8-7.7); Neutrophils % (Auto) 59 % (37-80); Nucleated Red Blood Cell # 1.00 Thou/mm3 (0.00-0.00); Nucleated Red Blood Cell % 11 /100 WBC (0); RDW Standard Deviation 48.9 fL (35.1-43.9); Red Blood Count 3.08 Miln/mm3 (4.50-5.90); White Blood Count 8.9 Thou/mm3 (3.8-10.6)
[2025-05-10 13:20] LABS: Hemoglobin 8.6 g/dL (13.5-16.0); Platelet Count 68 Thou/mm3 (140-440)
[2025-05-10 13:33] LABS: Alanine Aminotransferase 19 U/L (10-49); Albumin, Serum 3.4 gm/dL (3.5-5.0); Albumin/Globulin Ratio 1.4 (1.2-2.2); Alkaline Phosphatase 697 U/L (46-116); Anion Gap 10 (7-16); Aspartate Amino Transferase 24 U/L (0-34); BUN/Creatinine Ratio 16 Ratio (12-20); Bilirubin,Total 2.3 mg/dL (0.3-1.2); Blood Urea Nitrogen 8 mg/dL (9-23); Calcium 8.5 mg/dL (8.3-10.6); Calcium (Corrected) 9.0 mg/dL (8.5-10.1); Carbon Dioxide 26.8 mMol/L (20.0-31.0); Chloride 100 mMol/L (98-107); Creatinine (Component) 0.5 mg/dL (0.6-1.3); Estimated Creatinine Clearance 159.5 mL/min (>60); Globulin 2.5 gm/dL (2.3-3.5); Glucose 103 mg/dL (74-106); Magnesium 1.8 mg/dL (1.6-2.6); Osmolality,Calculated 272 (275-295); Phosphorous 3.4 mg/dL (2.4-5.1); Potassium 3.9 mMol/L (3.4-5.1); Sodium 137 mMol/L (136-145); Total Protein 5.9 gm/dL (5.7-8.2); Vancomycin,Trough 15.6 mcg/mL (5.0-10.0); eGFR > 60 See Note
[2025-05-10 13:43] LABS: Slide Review Platelets confirmed
--- NOTE | 2025-05-10 15:17 | PC.SS ---
SS follow up note; [facility]G is being monitored. Patient will discharge home when medically cleared.
--- NOTE | 2025-05-10 18:41 | SUR.PHASEI ---
pt received from OR in recovery bay 5. pt asleep but responds to voice, breathing unlabored on 4l nc. v/s stable. report received from Ashly VALDEZ.
--- NOTE | 2025-05-10 19:15 | SUR.PHASEI ---
pt awake and alert, breathing unlabored on nc 3l. v/s stable. report called to Kalyn VALDEZ. pt will be transferred to room at this time.
[2025-05-10] MEDS: NA SU/NAHCO3/KC/PEG (Golytely) 4,000 ML BTL 4000 ML PO (19:35)
[2025-05-11] VITALS (33 sets, daily range): BP systolic 100–146; BP diastolic 65–115; PULSE 112–134; RESP 16–39; TEMP 36.1–37.2; O2SAT 91–100; BMI 23.9
[2025-05-11] MEDS: MORPHINE SULF INJ 10 MG/ML VIAL 2 MG IVP (00:36)
[2025-05-11 00:47] LABS: Hematocrit 21.3 % (41.0-53.0)
[2025-05-11 00:48] LABS: Hemoglobin 7.5 g/dL (13.5-16.0)
[2025-05-11] MEDS: guaiFENesin SYRUP 200 MG/10 ML UDC 100 MG PO (01:02)
--- NOTE | 2025-05-11 01:45 | PC.NURSE ---
DR. HOWELL MADE AWARE OF HGB 7.5, HCT 21.3.NO NEW ORDERS AT THIS TIME
[2025-05-11] MEDS: CEFEPIME INJ 2 GM in SODIUM CHLORIDE 0.9% (Popper) 50 ML IV (05:14)
[2025-05-11] MEDS: VANCOMYCIN/NS 1 GM IVPB 200 ML IV (05:56)
[2025-05-11 06:39] LABS: Basophils # (Auto) 0.1 Thou/mm3 (0.0-0.2); Basophils % (Auto) 1 % (0-2.5); Eosinophils # (Auto) 0.3 Thou/mm3 (0.0-0.5); Eosinophils % (Auto) 3 % (0-10); Hematocrit 24.2 % (41.0-53.0); Immature Granulocytes Auto 0.85 Thou/mm3 (0.00-0.00); Lymphocytes # (Auto) 2.2 Thou/mm3 (1.0-4.8); Lymphocytes % (Auto) 23 % (10-50); Mean Corpuscular HGB Conc 33.9 g/dl (31.0-37.0); Mean Corpuscular Hemoglobin 28.7 pg (25.0-35.0); Mean Corpuscular Volume 85 fL (80-100); Monocytes # (Auto) 0.7 Thou/mm3 (0.0-0.8); Monocytes % (Auto) 7 % (0-12); Neutrophils # (Auto) 5.3 Thou/mm3 (1.8-7.7); Neutrophils % (Auto) 56 % (37-80); Nucleated Red Blood Cell # 0.70 Thou/mm3 (0.00-0.00); Nucleated Red Blood Cell % 7 /100 WBC (0); RDW Standard Deviation 53.5 fL (35.1-43.9); Red Blood Count 2.86 Miln/mm3 (4.50-5.90); White Blood Count 9.4 Thou/mm3 (3.8-10.6)
[2025-05-11 06:41] LABS: Hemoglobin 8.2 g/dL (13.5-16.0); Platelet Count 59 Thou/mm3 (140-440)
[2025-05-11 07:16] LABS: Alanine Aminotransferase 17 U/L (10-49); Albumin, Serum 3.4 gm/dL (3.5-5.0); Albumin/Globulin Ratio 1.3 (1.2-2.2); Alkaline Phosphatase 721 U/L (46-116); Anion Gap 12 (7-16); Aspartate Amino Transferase 26 U/L (0-34); BUN/Creatinine Ratio 18 Ratio (12-20); Bilirubin,Total 2.5 mg/dL (0.3-1.2); Blood Urea Nitrogen 9 mg/dL (9-23); Calcium 8.5 mg/dL (8.3-10.6); Calcium (Corrected) 9.0 mg/dL (8.5-10.1); Carbon Dioxide 26.4 mMol/L (20.0-31.0); Chloride 100 mMol/L (98-107); Creatinine (Component) 0.5 mg/dL (0.6-1.3); Estimated Creatinine Clearance 159.5 mL/min (>60); Globulin 2.7 gm/dL (2.3-3.5); Glucose 112 mg/dL (74-106); Magnesium 1.6 mg/dL (1.6-2.6); Osmolality,Calculated 275 (275-295); Phosphorous 3.5 mg/dL (2.4-5.1); Potassium 4.2 mMol/L (3.4-5.1); Sodium 138 mMol/L (136-145); Total Protein 6.1 gm/dL (5.7-8.2); eGFR > 60 See Note
[2025-05-11 07:29] LABS: Slide Review Platelets confirmed
[2025-05-11] MEDS: Magnesium Sulfate 2 GM Ivpb 2 GM/50 ML BAG IV (08:15)
--- NOTE | 2025-05-11 09:00 | XR_ITS ---
Shoulder bilateral, 2 views Technique: Shoulder AP internal rotation bilateral 2 views Exam date and time :May 11, 2025 0923 hours INDICATIONS: Bilateral shoulder pain 2 years. FINDINGS: Abnormal sclerosis involving all visualized osseous structures No shoulder fractures or dislocations Moderate narrowing glenohumeral joints IMPRESSION: Abnormal sclerosis involving all osseous structures suspicious for osteoblastic metastatic disease Recommend bone scan follow-up
--- NOTE | 2025-05-11 10:07 | ESPR_ITS ---
<Statement entered by Omid Segundo MD - 05/11/25 16:26> Patient seen and examined at bedside, no acute overnight events. I discussed and supervised with the campus recruiting internship physician who took care of this patient. I personally saw and examined the patient. I agree with most of the assessment and plan. Patient remains very ill appearing. Acute drop in hemoglobin today to 6.5, additional 1 unit transfused. Patient on GoLytely prep, reports bloody bowel movements. 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 If remains stable likely drain effusion from Pleurex. Consider transfer for cardiothoracic surgery if unstable post-drain. Colonoscopy tomorrow. Plan of care discussed with attending Dr. Brantley. Omid Segundo MD PGY-2 Documentation for date of: 05/11/25 Subjective Subjective Interval history: while on golytely prep, pt noted to have melena and bright red blood per rectum, H/H stat Hgb 6.5, transfuse 1 unit PRBC, post H/H ordered pts notes that he has an appointment 05/13 @8AM for PET Scan pt still reports chest pain with inspirations relieved with norco Hgb stable at 8.2 in the AM Golytely prep for colonoscopy tomorrow. EGD yesterday showed gastritis. Exam Vital Signs Temp Pulse Resp BP Pulse Ox O2 Del Method O2 Flow Rate 98.6 F 119 H 20 103/66 98 Nasal Cannula 2 05/11/25 08:00 05/11/25 08:00 05/11/25 08:00 05/11/25 08:00 05/11/25 08:00 05/11/25 08:00 05/11/25 08:00 Vitals over the past 24hours were reviewed: Temp: Afebrile HR: tachycardic to 120s BP:wnl RR: satting well on NC Narrative Exam GENERAL APPEARANCE: Patient is AO x 3,pale. lean body habitis in no acute distress. pt sitting upright in bed HEENT: NC, AT. MMM. EOMI, NECK: No stiffness or restricted ROM. Port A cath clean and dry. HEART: Sinus tachycardia with regular rhythm, normal S1/S2, no m/r/g LUNGS: on NC, pt breathing without accessory muscles, PleurX catheter on right side. ABDOMEN: Soft, nontender, nondistended with bowel sounds heard. BACK: No CVAT, no obvious deformity. EXTREMITIES: Without cyanosis, clubbing or edema. NEUROLOGICAL: Grossly nonfocal. Alert and oriented, moving all 4 extremities. CN not formally tested but appear grossly intact. Skin: Warm and dry without any rash. Psych: Appropriate mood and affect Objective Labs 05/12/25 02:34 05/12/25 02:34 Labs: Laboratory Results - last 24 hr 05/10/25 05/11/25 05/11/25 12:53 00:26 05:48 WBC 8.9 9.4 RBC 3.08 L 2.86 L Hgb 8.6 L D 7.5 L 8.2 L Hct 24.7 L 21.3 L* 24.2 L MCV 80 85 MCH 27.9 28.7 MCHC 34.8 33.9 RDW Std Deviation 48.9 H 53.5 H Plt Count 68 L D 59 L Neut % (Auto) 59 56 Lymph % (Auto) 18 23 [place] % (Auto) 7 7 Eos % (Auto) 5 3 Baso % (Auto) 1 1 Neut # (Auto) 5.3 5.3 Lymph # (Auto) 1.6 2.2 [place] # (Auto) 0.6 0.7 Eos # (Auto) 0.4 0.3 Baso # (Auto) 0.1 0.1 Immature Gran # (Auto) 0.87 H 0.85 H Absolute Nucleated RBC 1.00 H 0.70 H Immature Gran % 10 H 9 H Nucleated RBC % 11 H 7 H Sodium 137 138 Potassium 3.9 4.2 Chloride 100 100 Carbon Dioxide 26.8 26.4 Anion Gap 10 12 BUN 8 L 9 Creatinine 0.5 L 0.5 L Estim Creat Clear Calc 159.5 159.5 eGFR > 60 > 60 BUN/Creatinine Ratio 16 18 Glucose 103 112 H Calculated Osmolality 272 L 275 Calcium 8.5 8.5 Corrected Calcium 9.0 9.0 Phosphorus 3.4 3.5 Magnesium 1.8 1.6 Total Bilirubin 2.3 H D 2.5 H AST 24 26 ALT 19 17 Alkaline Phosphatase 697 H D 721 H D Total Protein 5.9 6.1 Albumin 3.4 L 3.4 L Globulin 2.5 2.7 Albumin/Globulin Ratio 1.4 1.3 Vancomycin Trough 15.6 H Misc Test Result Platelets confirmed Platelets confirmed Quality Measures Quality Measures VTE prophylaxis Assessment & Plan Assessment Current Active Medications: Generic Name Dose Route Start Last Admin Trade Name Freq PRN Reason Stop Dose Admin Acetaminophen 650 mg 05/07/25 04:49 Acetaminophen 325 Mg Tablet PO 06/06/25 04:48 Q6H PRN Pain 1-3 and / or fever >100.1 Hydrocodone Bitart/Acetaminophen 1 tab 05/07/25 04:49 05/11/25 10:06 Hydrocodone/Apap 10/325 Tab PO 05/12/25 04:48 1 tab Q4H PRN Administration PAIN SCALE 4-6 (Moderate Guaifenesin 100 mg 05/08/25 21:09 05/11/25 01:02 Guaifenesin Syrup 200 Mg/10 Ml Udc PO 06/07/25 21:08 100 mg QID PRN Administration COUGH Protocol Vancomycin/Sodium Chloride 200 mls @ 120 mls/hr 05/07/25 22:00 05/11/25 05:56 Vancomycin/Ns 1 Gm Ivpb IV 05/14/25 21:59 120 mls/hr Q8HR JUAN JOSE Administration Cefepime HCl 2 gm/ Sodium 50 mls @ 100 mls/hr 05/07/25 10:15 05/11/25 05:14 Chloride IV 05/14/25 10:14 100 mls/hr Q8HR JUAN JOSE Administration Morphine Sulfate 2 mg 05/07/25 04:49 05/11/25 00:36 Morphine Sulf Inj 10 Mg/Ml Vial IVP 05/12/25 04:48 2 mg Q6H PRN Administration PAIN SCALE 7-10 (Severe Ondansetron HCl 4 mg 05/07/25 04:49 05/07/25 07:51 Ondansetron Inj 2 Mg/Ml Inj 2 Ml IVP 06/06/25 04:48 4 mg Q6H PRN Administration NAUSEA OR VOMITING Protocol Pantoprazole Sodium 40 mg 05/08/25 21:30 05/11/25 08:47 Pantoprazole Inj 40 Mg Vial IVP 06/07/25 21:29 40 mg BID JUAN JOSE Administration Pharmacy Consult 1 each 05/07/25 09:00 Vancomycin Pharmacy To Dose 1 Each Each IV 06/06/25 08:59 QDAY PRN CONSULT Sennosides 1 tab 05/07/25 04:49 05/09/25 05:44 Senna Tablet PO 06/06/25 04:48 1 tab QDAY PRN Administration constipation Protocol Plan Mr. 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 He was found to have empyema and right lung pneumonia and acute drops in hemoglobin, Pt fibringen wnl. Pt has required multiple transfusions with 4x PRBC and 1x platelet. . Pt has had minimal workup of new GI cancer diagnosis, MRCP unremarkable, GI consulted, EGD with gastritis (3 biopsies taken, follow up), pending colonoscopy tomorrow. pt hgb drop to 6.5 while on golytely prep, BRBPR, transfused 1unit prbc pending post transfusion h/h. #Multiple Acutes drop in hemoglobin requiring transfusion #Chronic normocytic anemia #Chronic thrombocytopenia ? In the setting of malignancy Low hemoglobin of 6.5 and platelets of 64 likely 2/2 myelosuppression of bone marrow from infiltration of metastatic GI malignancy (WBC normal at 9.5) Myelosuppression hypothesis supported by presence of nucleated RBC's at 9/100 indicating abnormal bone marrow function May also be 2/2 underlying hemolytic anemia due to elevated LDH of 459, Fibrinogen wnl pt denies having a history of GI bleeds, however today while undergoing golytely prep, pt noted to have melena and BRBPR with hgb drop requiring 1 unit prbc transfusion today Acute anemia likely 2/2 GI bleed, pending colonoscopy tomorrow. Upper GI bleed in stomach or duodenum unlikely given EGD findings, however consider small bowel bleed. Plan: - Daily CBC ? 5 units PRBC transfused total ? PRBC if hemoglobin drops below 7 ? Bone marrow biopsy results pending ? Bleeding precautions - 05/11 pending post transfusion h/h #History of metastatic GI malignancy mets to bones, lung with pulmonary nodules #Elevated T. bili with elevated ALP likely related to malignancy Patient did not start chemotherapy sessions till date. BM biopsy results were inconclusive. pending PET scan as an outpatient, scheduled 05/13 @8AM Plan: ? Follow-up with Dr. Schwartz as outpatient ? Brain MRI- Negative for mets - GI consulted, appreciate recs - EGD 05/10 with gastritis - Follow up EGD Biopsies pathology - golytely prep for upcoming colonoscopy - pending colonoscopy tomorrow - Clear liquid diet #Community-acquired pneumonia ?In the setting of infection/empyema Initial CT chest impression: consolidations in the right middle and lower lobes. Absence of fever and lack of elevated WBC may be explained by myelosuppression of bone marrow 2/2 metastasis of osteoblastic lesions (anemia and thrombocytopenia present). Plan: ? d/c vancomycin and cefepime (05/07- 05/11) - start doxycycline 100 mg BID IV (05/11- ? Bcx, NGTD @48 hrs - Sputum cultures 4+ mixed oral christal , appear contaminated ? Monitor for signs of fever #Acute respiratory distress likely secondary to #Right-sided malignant effusion, and possible community-acquired pneumonia #Left-sided pleural effusion In the setting of metastatic GI malignancy mets to bones and lung Initial CT chest impression: loculated moderate right pleural effusion with air loculi inside suggestive of pleural empyema. Possibly 2/2 metastasis of GI malignancy to lungs and bone resulting in more frequent infections from immunocompromised status and recurrent pleural effusions. MR brain 05/07: No abnormal enhancing cerebellar or cerebral lesions Left sided thoracentesis performed 05/09, removed 1.4 L fluid, Bloody, wbc: 988 RBC 44679, LDH 473 defer doing another thorocentesis given pt is having acute hgb drops, likely GI bleed. Plan: - 650 cc removed from RIGHT pleurvac 05/07, 500 cc removed 05/09 ? Will consider dornase to help with draining ? Consulted livestock nutritionist, Dr. Bonds, appreciate recs. ? Monitor for signs of respiratory distress Health Maintenance: Disposition: Admitted for management of acute respiratory distress related to empyema and community-acquired pneumonia and acute blood loss anemia, pending colonoscopy tomorrow (on golytely prep) Diet: Clear liquid diet DVT prophylaxis: SCDs GI prophylaxis: Protonix 40 mg IV daily CODE STATUS: Full code Case discussed with my attending Dr. Karon Lester MD PGY-1 Attending Provider Attestation/Addendum Padmini Key, DO, attest that I was physically present for the mclaughlin portions of the service and evaluated the patient with the resident and I reviewed and discussed the case with the resident and agree with the resident's findings and plans of care as documented above Patient seen and eval this a.m. States that he has been tolerating his GoLytely prep. Patient had just had a bowel movement in the bathroom which I had seen and was clear, but had viv blood. Upon further questioning, patient states that when he had a bowel movement after starting GoLytely, the bowel movements started off black progressively became more red. However, he was also noted to have had some red liquids as well on his meal tray. Patient denies any history in the past of having black or bloody bowel movements. Patient complained of feeling chills after having had the bowel movement and was laying in bed shivering. A stat H&H was done showing that hemoglobin was 6.5. 1 unit of PRBCs was ordered and 2 units were held. Patient is scheduled for colonoscopy this evening. Upper endoscopy was done yesterday showing gastritis, but normal esophagus. Biopsies of stomach were done. CA 19-9 was noted to be elevated outpatient with free kappa light chains as well. Shoulder x-ray was done this morning as patient reported some pain in his shoulders. He was found to have abnormal sclerosis of all visualized osseous structures consistent with osteoblastic metastatic disease. Will follow-up with posttransfusion H&H as well as colonoscopy results this evening. Continue with current management otherwise. Patient continues to have diminished breath sounds in his right lung base and clear breath sounds in the left lung [place]. He remains on 2 L nasal cannula at this time.
--- NOTE | 2025-05-11 13:10 | PD.INTPROC ---
PROCEDURES: Procedure Date / Time 05/09/25 7459
--- NOTE | 2025-05-11 14:14 | ESOP_ITS ---
<Statement entered by Madan Bonds MD - 05/17/25 13:00> I was present for entire procedure. Patient tolerated well with no immediate complications. Post procedure chest film confirmed no evidence of post-procedure PTX. PROCEDURES: Procedure Date / Time 05/09/25 1435 Procedure Narrative Procedure Narrative: Thoracentesis Op Note A time-out was conducted, and after reviewing the chest X-ray, the correct side was confirmed and marked. The procedure was performed alongside the ICU nuisance wildlife specialist Dr Bonds. Bedside ultrasound was used to confirm the landmarks and locate the largest pocket of pleural fluid on the left side. I washed my hands immediately before the procedure and wore a surgical cap, mask, protective eyewear, sterile gown, and sterile gloves throughout. The patient was positioned sitting upright, leaning slightly forward over a bedside table with support. The site was prepped and draped in a sterile manner using a chlorhexidine scrub. A total of 20 ml of 1% lidocaine was used to anesthetize the skin, subcutaneous tissue, periosteum of the rib, and parietal pleura. A needle attached to a 60 ml syringe was inserted just superior to the rib at the selected intercostal space under ultrasound guidance. Gentle aspiration confirmed entry into the pleural space and pleural fluid return. A thoracentesis catheter was then advanced over the needle into the pleural space, and the needle was removed. Fluid was aspirated slowly and drained into evacuated collection bottles, monitoring the patient for signs of cough or discomfort. A total of 1,400 ml of pleural fluid was removed without complications. The catheter was removed, and a sterile occlusive dressing was applied to the site. The patient tolerated the procedure well. A post-procedure chest X-ray is pending to evaluate for pneumothorax. Estimated blood loss was less than 5 cc.
[2025-05-11 15:09] LABS: Hematocrit 18.9 % (41.0-53.0); Hemoglobin 6.5 g/dL (13.5-16.0)
[2025-05-11] MEDS: DOXYCYCLINE INJ 100 MG in SODIUM CHLORIDE 0.9% (POP) 100 ML IV (20:47)
[2025-05-11 21:26] LABS: Hematocrit 20.4 % (41.0-53.0); Hemoglobin 7.2 g/dL (13.5-16.0)
[2025-05-12] VITALS (20 sets, daily range): BP systolic 97–122; BP diastolic 65–89; PULSE 110–135; RESP 18–26; TEMP 36.4–37.2; O2SAT 93–99
[2025-05-12] MEDS: MORPHINE SULF INJ 10 MG/ML VIAL 2 MG IVP (00:55)
[2025-05-12 02:44] LABS: Basophils # (Auto) 0.1 Thou/mm3 (0.0-0.2); Basophils % (Auto) 1 % (0-2.5); Eosinophils # (Auto) 0.2 Thou/mm3 (0.0-0.5); Eosinophils % (Auto) 3 % (0-10); Hematocrit 21.7 % (41.0-53.0); Immature Granulocytes Auto 0.62 Thou/mm3 (0.00-0.00); Lymphocytes # (Auto) 1.4 Thou/mm3 (1.0-4.8); Lymphocytes % (Auto) 19 % (10-50); Mean Corpuscular HGB Conc 35.0 g/dl (31.0-37.0); Mean Corpuscular Hemoglobin 28.5 pg (25.0-35.0); Mean Corpuscular Volume 81 fL (80-100); Monocytes # (Auto) 0.6 Thou/mm3 (0.0-0.8); Monocytes % (Auto) 8 % (0-12); Neutrophils # (Auto) 4.5 Thou/mm3 (1.8-7.7); Neutrophils % (Auto) 61 % (37-80); Nucleated Red Blood Cell # 0.41 Thou/mm3 (0.00-0.00); Nucleated Red Blood Cell % 6 /100 WBC (0); RDW Standard Deviation 50.4 fL (35.1-43.9); Red Blood Count 2.67 Miln/mm3 (4.50-5.90); White Blood Count 7.4 Thou/mm3 (3.8-10.6)
[2025-05-12 02:49] LABS: Hemoglobin 7.6 g/dL (13.5-16.0); Platelet Count 31 Thou/mm3 (140-440)
[2025-05-12 03:13] LABS: Alanine Aminotransferase 13 U/L (10-49); Anion Gap 8 (7-16); Aspartate Amino Transferase 17 U/L (0-34); BUN/Creatinine Ratio 25 Ratio (12-20); Blood Urea Nitrogen 10 mg/dL (9-23); Calcium 8.4 mg/dL (8.3-10.6); Carbon Dioxide 28.1 mMol/L (20.0-31.0); Chloride 101 mMol/L (98-107); Creatinine (Component) 0.4 mg/dL (0.6-1.3); Estimated Creatinine Clearance 199.4 mL/min (>60); Glucose 111 mg/dL (74-106); Magnesium 1.6 mg/dL (1.6-2.6); Osmolality,Calculated 273 (275-295); Phosphorous 3.4 mg/dL (2.4-5.1); Potassium 3.6 mMol/L (3.4-5.1); Sodium 137 mMol/L (136-145); Total Protein 4.8 gm/dL (5.7-8.2); eGFR > 60 See Note
[2025-05-12 03:14] LABS: Albumin, Serum 2.8 gm/dL (3.5-5.0); Albumin/Globulin Ratio 1.4 (1.2-2.2); Alkaline Phosphatase 557 U/L (46-116); Bilirubin,Total 1.5 mg/dL (0.3-1.2); Calcium (Corrected) 9.4 mg/dL (8.5-10.1); Globulin 2.0 gm/dL (2.3-3.5)
[2025-05-12 03:47] LABS: Slide Review Platelets confirmed
[2025-05-12] MEDS: MORPHINE SULF INJ 10 MG/ML VIAL IVP (04:36)
[2025-05-12 04:59] LABS: Path Review Blood Smear Sent to Pathologist
--- NOTE | 2025-05-12 07:32 | ESPR_ITS ---
<Statement entered by Omid Segundo MD - 05/13/25 18:32> Patient seen and examined at bedside, no acute overnight events. I discussed and supervised with the internal revenue agent physician who took care of this patient. I personally saw and examined the patient. I agree with most of the assessment and plan. Patient continues to be unstable, requiring multiple PRBC transfusions. Declining strength. EGD performed biopsies taken. Plan for colonoscopy. In discussion with family regarding further treatment including biopsy verses hospice. Plan of care discussed with attending Dr. Brantley. Omid Segundo MD PGY-2 Documentation for date of: 05/12/25 Subjective Subjective Interval history: Patient received 2 units PRBC overnight, with bump in hemoglobin to 7.6 This morning ordered FFP and platelets to transfuse today X-ray of left shoulder shows evidence of abnormal sclerosis concerning for osteoblastic metastatic lesion, patient reports pain of left shoulder, physical therapy consulted who recommended outpatient follow-up Had discussion with Dr. Schwartz (oncology) who discussed the importance of having tissue sample in order to make oncologic plan Plan is to discuss whether family and patient would like to proceed with bone biopsy versus having a goals of care discussion and possibly hospice given patient poor prognosis Exam Vital Signs Temp Pulse Resp BP Pulse Ox O2 Del Method O2 Flow Rate 98.0 F 122 H 19 108/73 94 L Nasal Cannula 5 05/12/25 04:00 05/12/25 04:00 05/12/25 04:00 05/12/25 04:00 05/12/25 04:00 05/12/25 04:00 05/12/25 04:00 Vitals over the past 24hours were reviewed: Afebrile BP within normal limits heart rate tachycardic to the 120s respiratory rate within normal limits on 5 L nasal cannula Narrative Exam GENERAL APPEARANCE: Patient is AO x 3,pale. lean body habitis in no acute distress. pt laying flat in bed HEENT: NC, AT. MMM. EOMI, NECK: No stiffness or restricted ROM. Port A cath clean and dry. HEART: Sinus tachycardia with regular rhythm, normal S1/S2, no m/r/g LUNGS: on 5 L NC, pt breathing without accessory muscles, PleurX catheter on right side. ABDOMEN: Soft, nontender, nondistended with bowel sounds heard. BACK: No CVAT, no obvious deformity. EXTREMITIES: Without cyanosis, clubbing or edema. NEUROLOGICAL: Grossly nonfocal. Alert and oriented, moving all 4 extremities. CN not formally tested but appear grossly intact. Skin: Warm and dry without any rash. Psych: Appropriate mood and affect Objective Labs 05/13/25 05:15 05/13/25 05:15 Labs: Laboratory Results - last 24 hr 05/10/25 05/11/25 05/11/25 03:10 13:45 21:12 WBC RBC Hgb 6.5 L* D 7.2 L Hct 18.9 L* 20.4 L* MCV MCH MCHC RDW Std Deviation Plt Count Neut % (Auto) Lymph % (Auto) [place] % (Auto) Eos % (Auto) Baso % (Auto) Neut # (Auto) Lymph # (Auto) [place] # (Auto) Eos # (Auto) Baso # (Auto) Immature Gran # (Auto) Absolute Nucleated RBC Immature Gran % Nucleated RBC % Smear Path Review Sodium Potassium Chloride Carbon Dioxide Anion Gap BUN Creatinine Estim Creat Clear Calc eGFR BUN/Creatinine Ratio Glucose Calculated Osmolality Calcium Corrected Calcium Phosphorus Magnesium Total Bilirubin AST ALT Alkaline Phosphatase Total Protein Albumin Globulin Albumin/Globulin Ratio Misc Test Result Blood Type A Positive Antibody Screen NEGATIVE Crossmatch See Detail Blood Bank Wristband ID Yes 05/12/25 02:34 WBC 7.4 RBC 2.67 L Hgb 7.6 L Hct 21.7 L* MCV 81 MCH 28.5 MCHC 35.0 RDW Std Deviation 50.4 H Plt Count 31 L D Neut % (Auto) 61 Lymph % (Auto) 19 [place] % (Auto) 8 Eos % (Auto) 3 Baso % (Auto) 1 Neut # (Auto) 4.5 Lymph # (Auto) 1.4 [place] # (Auto) 0.6 Eos # (Auto) 0.2 Baso # (Auto) 0.1 Immature Gran # (Auto) 0.62 H Absolute Nucleated RBC 0.41 H Immature Gran % 8 H Nucleated RBC % 6 H Smear Path Review Sent to Pathologist Sodium 137 Potassium 3.6 D Chloride 101 Carbon Dioxide 28.1 Anion Gap 8 BUN 10 Creatinine 0.4 L Estim Creat Clear Calc 199.4 eGFR > 60 BUN/Creatinine Ratio 25 H Glucose 111 H Calculated Osmolality 273 L Calcium 8.4 Corrected Calcium 9.4 Phosphorus 3.4 Magnesium 1.6 Total Bilirubin 1.5 H D AST 17 ALT 13 Alkaline Phosphatase 557 H D Total Protein 4.8 L Albumin 2.8 L D Globulin 2.0 L Albumin/Globulin Ratio 1.4 Misc Test Result Platelets confirmed Blood Type Antibody Screen Crossmatch Blood Bank Wristband ID Quality Measures Quality Measures VTE prophylaxis Assessment & Plan Assessment Current Active Medications: Generic Name Dose Route Start Last Admin Trade Name Freq PRN Reason Stop Dose Admin Acetaminophen 650 mg 05/07/25 04:49 Acetaminophen 325 Mg Tablet PO 06/06/25 04:48 Q6H PRN Pain 1-3 and / or fever >100.1 Guaifenesin 100 mg 05/08/25 21:09 05/11/25 01:02 Guaifenesin Syrup 200 Mg/10 Ml Udc PO 06/07/25 21:08 100 mg QID PRN Administration COUGH Protocol Doxycycline Hyclate 100 mg/ 100 mls @ 100 mls/hr 05/11/25 21:00 05/11/25 20:47 Sodium Chloride IV 05/18/25 20:59 100 mls/hr BID JUAN JOSE Administration Magnesium Sulfate 4 gm in 50 mls @ 12.5 mls/hr 05/12/25 07:31 Magnesium Sulfate Ivpb IV 05/12/25 11:30 X1 ONE Ondansetron HCl 4 mg 05/07/25 04:49 05/07/25 07:51 Ondansetron Inj 2 Mg/Ml Inj 2 Ml IVP 06/06/25 04:48 4 mg Q6H PRN Administration NAUSEA OR VOMITING Protocol Pantoprazole Sodium 40 mg 05/08/25 21:30 05/11/25 20:47 Pantoprazole Inj 40 Mg Vial IVP 06/07/25 21:29 40 mg BID JUAN JOSE Administration Sennosides 1 tab 05/07/25 04:49 05/09/25 05:44 Senna Tablet PO 06/06/25 04:48 1 tab QDAY PRN Administration constipation Protocol Plan Mr. 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 He was found to have empyema and right lung pneumonia and multiple acute drops in hemoglobin, Pt fibringen wnl. Pt has required multiple transfusions with 6 PRBC and 2 platelet. And 1 unit FFP. Pt has had minimal workup of new GI cancer diagnosis, MRCP unremarkable, GI consulted, EGD with gastritis (3 biopsies taken, with no evidence of malignancy dysplasia or metaplasia. Patient underwent colonoscopy with bleeding throughout colon, no clear source of bleeding considering small bowel follow-through with GI. Discussed with patient's daughter possibility of hospice care given patient poor prognosis plan for tomorrow is to have goals of care discussion with patient and family regarding hospice care versus pursuing repeat bone biopsy of iliac met and possible treatment. #Multiple Acutes drop in hemoglobin requiring transfusion #Chronic normocytic anemia #Chronic thrombocytopenia ? In the setting of malignancy of unknown origin Low hemoglobin of 6.5 and platelets of 64 likely 2/2 myelosuppression of bone marrow from infiltration of metastatic GI malignancy (WBC normal at 9.5) Myelosuppression hypothesis supported by presence of nucleated RBC's at 9/100 indicating abnormal bone marrow function May also be 2/2 underlying hemolytic anemia due to elevated LDH of 459, Fibrinogen wnl pt denies having a history of GI bleeds, however while undergoing golytely prep, pt noted to have melena and BRBPR with hgb drop requiring 2 unit prbc transfusion Acute anemia likely 2/2 GI bleed, pending colonoscopy tomorrow. Upper GI bleed in stomach or duodenum unlikely given EGD findings, however consider small bowel bleed. Given number of units of PRBC transfused total for this patient FFP and platelets transfused 05/12 was ordered Plan: - Daily CBC ? 6 units PRBC transfused total ? PRBC if hemoglobin drops below 7 ? Bone marrow biopsy results pending ? Bleeding precautions - 05/12 transfused 1 unit FFP and 1 unit platelets, follow-up a.m. CBC #History of metastatic GI malignancy mets to bones, lung with pulmonary nodules #Elevated T. bili with elevated ALP likely related to malignancy Patient did not start chemotherapy sessions till date. BM biopsy results were inconclusive (per Dr. Summers incorrect bone biopsy needle was used for this sample) Spoke with Dr. Summers 05/12 to discuss potential repeat biopsy of iliac bone met, iliac bone met safer site for biopsy compared to left shoulder metastasis, Dr Summers okay to redo biopsy pending family decision on whether they would like to proceed. Discussed with patient whether he would like to have repeat biopsy pending discussion with his family tomorrow to decide. Per discussion with Dr. Watson, consider small bowel follow-through to assess for bleeding Plan: ? Follow-up with Dr. Schwartz as outpatient ? Brain MRI- Negative for mets - GI consulted, appreciate recs - EGD 05/10 with gastritis - EGD stomach biopsies pathology report shows mild inactive gastritis, negative for signs of metaplasia, dysplasia, or malignancy, negative for H. pylori organisms - Colonoscopy completed, blood in the colon all the way up to the ileocecal valve, there was concern for small bowel bleeding - Clear liquid diet advance as tolerated #Community-acquired pneumonia ?In the setting of infection/empyema Initial CT chest impression: consolidations in the right middle and lower lobes. Absence of fever and lack of elevated WBC may be explained by myelosuppression of bone marrow 2/2 metastasis of osteoblastic lesions (anemia and thrombocytopenia present). Plan: ? d/c vancomycin and cefepime (05/07- 05/11) - start doxycycline 100 mg BID IV (05/11- ? Bcx, NGTD @48 hrs - Sputum cultures 4+ mixed oral christal , appear contaminated ? Monitor for signs of fever #Acute respiratory distress likely secondary to #Right-sided malignant effusion, and possible community-acquired pneumonia #Left-sided pleural effusion In the setting of metastatic GI malignancy mets to bones and lung Initial CT chest impression: loculated moderate right pleural effusion with air loculi inside suggestive of pleural empyema. Possibly 2/2 metastasis of GI malignancy to lungs and bone resulting in more frequent infections from immunocompromised status and recurrent pleural effusions. MR brain 05/07: No abnormal enhancing cerebellar or cerebral lesions Left sided thoracentesis performed 05/09, removed 1.4 L fluid, Bloody, wbc: 988 RBC 83896, LDH 473 defer doing another thorocentesis given pt is having acute hgb drops, likely GI bleed. Plan: - 650 cc removed from RIGHT pleurvac 05/07, 500 cc removed 05/09 ? Will consider dornase to help with draining ? Consulted stiff leg operator, Dr. Bonds, appreciate recs. -Consider transfer to higher care facility for possible CT surgery ? Monitor for signs of respiratory distress Health Maintenance: Disposition: Admitted for management of acute respiratory distress related to empyema and community-acquired pneumonia and acute blood loss anemia, pending colonoscopy tomorrow (on golytely prep) Diet: Clear liquid diet advance as tolerated DVT prophylaxis: SCDs GI prophylaxis: Protonix 40 mg IV daily CODE STATUS: Full code Case discussed with my senior resident Dr. Segundo Case discussed with my attending Dr. Karon Lester MD PGY-1 Attending Provider Attestation/Addendum Padmini Key, DO, attest that I was physically present for the mclaughlin portions of the service and evaluated the patient with the resident and I reviewed and discussed the case with the resident and agree with the resident's findings and plans of care as documented above Patient seen and eval this a.m. He reports mild chest pain but no acute events overnight. He continues to have some bloody bowel movements.Colonoscopy was done yesterday showing blood throughout the colon all the way up the ileocecal valve. Terminal ileum also showed some blood-tinged secretions. Lesion is likely coming from the small bowel. Plan for small bowel follow-through with barium today. Will monitor H&H closely and transfuse as needed. Spoke to patient's daughter Rosana over the phone who is understanding that the patient has advanced disease involving his lungs and bones. She asked about patient's overall prognosis and was more interested in patient's quality of life, rather than undergoing further workup. She states that she will speak to her family and the patient himself regarding goals of care. Case was also discussed with oncology. CA 19-9 was considerably elevated. Will offer biopsy to patient and if he wishes to further pursue further workup, patient may need transfer for capsule endoscopy to further investigate source of bleeding in small bowel
--- NOTE | 2025-05-12 07:44 | EKG_ITS ---
[facility] Test Date: 2025-05-12 Pat Name: LYN ROJAS Department: Room: S264A Gender: Male Field Support Technician: MOSESYVSimeon : 1975 Requested By: Nilda Lester Order Number: [id number] Reading MD: Nilda Lester Measurements Intervals [place] Rate: 122 P: 29 WV: 148 QRS: 30 QRSD: 83 T: 30 QT: 302 QTc: 432 Interpretive Statements SINUS TACHYCARDIA ABNORMAL RHYTHM ECG Compared to ECG 05/07/2025 01:08:38 T-wave abnormality no longer present /store/S0/[id number]
[2025-05-12] MEDS: Magnesium Sulfate 4 GM Ivpb 4 GM/50 ML BAG IV (07:58)
[2025-05-12] MEDS: HYDROmorphone INJ 2 MG/ML VIAL IVP ×3 (08:00→17:02)
[2025-05-12] MEDS: DOXYCYCLINE INJ 100 MG in SODIUM CHLORIDE 0.9% (POP) 100 ML IV ×2 (09:47→20:25)
[2025-05-12 10:12] LABS: INR 1.4 (0.9-1.3); Prothrombin Time 15.1 Seconds (9.0-12.2)
--- NOTE | 2025-05-12 10:29 | PD.ONCPROG ---
Documentation for date of: 05/12/25 Subjective Subjective Interval history: Patient underwent panendoscopy yesterday, appearing comfortable this a.m. On the lower endoscopy there appeared to be a lesion in the small bowel bleeding. No specimen was collected. Specimens collected from upper endoscopy studies reportedly revealed no malignancies as I spoke with the pathologist today. Exam Vital Signs Temp Pulse Resp BP Pulse Ox O2 Del Method O2 Flow Rate 98.3 F 135 H 20 122/83 94 L Nasal Cannula 2 05/12/25 08:00 05/12/25 08:22 05/12/25 08:22 05/12/25 08:00 05/12/25 08:22 05/12/25 08:00 05/12/25 08:22 Narrative Exam Lying comfortably this a.m. Objective Labs 05/12/25 02:34 05/12/25 02:34 Labs: Laboratory Results - last 24 hr 05/10/25 05/11/25 05/11/25 03:10 13:45 21:12 WBC RBC Hgb 6.5 L* D 7.2 L Hct 18.9 L* 20.4 L* MCV MCH MCHC RDW Std Deviation Plt Count Neut % (Auto) Lymph % (Auto) [place] % (Auto) Eos % (Auto) Baso % (Auto) Neut # (Auto) Lymph # (Auto) [place] # (Auto) Eos # (Auto) Baso # (Auto) Immature Gran # (Auto) Absolute Nucleated RBC Immature Gran % Nucleated RBC % Smear Path Review PT INR Sodium Potassium Chloride Carbon Dioxide Anion Gap BUN Creatinine Estim Creat Clear Calc eGFR BUN/Creatinine Ratio Glucose Calculated Osmolality Calcium Corrected Calcium Phosphorus Magnesium Total Bilirubin AST ALT Alkaline Phosphatase Total Protein Albumin Globulin Albumin/Globulin Ratio Misc Test Result Blood Type A Positive Antibody Screen NEGATIVE Crossmatch See Detail Blood Bank Wristband ID Yes Blood Bank Comment PLATP Ready 05/12/25 05/12/25 02:34 09:38 WBC 7.4 RBC 2.67 L Hgb 7.6 L Hct 21.7 L* MCV 81 MCH 28.5 MCHC 35.0 RDW Std Deviation 50.4 H Plt Count 31 L D Neut % (Auto) 61 Lymph % (Auto) 19 [place] % (Auto) 8 Eos % (Auto) 3 Baso % (Auto) 1 Neut # (Auto) 4.5 Lymph # (Auto) 1.4 [place] # (Auto) 0.6 Eos # (Auto) 0.2 Baso # (Auto) 0.1 Immature Gran # (Auto) 0.62 H Absolute Nucleated RBC 0.41 H Immature Gran % 8 H Nucleated RBC % 6 H Smear Path Review Sent to Pathologist PT 15.1 H INR 1.4 H Sodium 137 Potassium 3.6 D Chloride 101 Carbon Dioxide 28.1 Anion Gap 8 BUN 10 Creatinine 0.4 L Estim Creat Clear Calc 199.4 eGFR > 60 BUN/Creatinine Ratio 25 H Glucose 111 H Calculated Osmolality 273 L Calcium 8.4 Corrected Calcium 9.4 Phosphorus 3.4 Magnesium 1.6 Total Bilirubin 1.5 H D AST 17 ALT 13 Alkaline Phosphatase 557 H D Total Protein 4.8 L Albumin 2.8 L D Globulin 2.0 L Albumin/Globulin Ratio 1.4 Misc Test Result Platelets confirmed Blood Type Antibody Screen Crossmatch Blood Bank Wristband ID Blood Bank Comment Assessment & Plan A&P Narrative 1. 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 CA 19?9 alk phos considerably elevated, 2. To benefit from modern cancer therapy including immunotherapy or targeted therapy in this young patient who is motivated to get what ever treatment may benefit him, tissue diagnosis would be needed. 3. Iliac crest biopsy in patient with suspected bone mets was negative for malignancy. Upper endoscopy biopsies revealed no malignancy according to pathologist I spoke with today. 4. Lower endoscopy revealed a possible lesion in the small bowel causing bleeding. No specimens collected. 5. Small bowel follow-through pending. Receiving blood products for support. Time Spent With Patient Time: Total time spent is greater than 50% in coordination of care (as documented) at patient's floor/unit and/or counseling patient:
--- NOTE | 2025-05-12 11:00 | XR_ITS ---
Examination: Small bowel series Abdomen 3 views Date and time: May 12, 2025, 1142 hours INDICATIONS: Abdominal pain and distention this week TECHNIQUE AND FINDINGS: AP supine abdomen portable pulmonary film Patient received 120 cc Gastrografin with immediate and 1 hours films Contrast in the stomach and mildly dilated small bowel loops IMPRESSION: Mildly dilated small bowel loops Recommend follow-up films 3:00 PM 5:00 PM 7:00 PM Incidental note widespread osteoblastic metastatic disease
[2025-05-12] MEDS: LIDOCAINE 5% 1 PATCH TOP (11:30)
[2025-05-12] MEDS: DICLOFENAC 1% TOP GEL 100 GM TUBE TOP ×2 (11:37→20:35)
--- NOTE | 2025-05-12 12:00 | PC.SS ---
SS follow up rounding note; Patient's HMG is being monitored. Patient will possibly need HLOC.
--- NOTE | 2025-05-12 14:19 | PC.PT ---
Patient was referred to PT to do L shoulder ROM. It will be best to see the patient on the outpatient setting for L shoulder Treatment. Outpatient Occupational therapy will be the better option vs Physical Therapy. As per patient, he can ambulate to the restroom. This is confirmed by RN. SKilled PT in the acute care setting is not indicated at this time. Ordering Physician and SW made aware.
--- NOTE | 2025-05-12 14:45 | XR_ITS ---
Examination: Abdomen AP single view Technique: AP portable supine abdomen, single view Exam date and time: May 22, 2025 1443 hours INDICATIONS: Abdominal distention this week, 3 hour delayed film post small bowel series FINDINGS: Abundant contrast in the colon IMPRESSION: Negative for small bowel obstruction, no further films are needed
[2025-05-12 19:20] LABS: Hemoglobin 7.0 g/dL (13.5-16.0)
[2025-05-12 19:22] LABS: Hematocrit 20.1 % (41.0-53.0)
--- NOTE | 2025-05-12 21:57 | ESPR_ITS ---
Documentation for date of: 05/12/25 Subjective Subjective Interval history: Hemoglobin hematocrit 7.0 and 20.1 small bowel follow-through negative If patient continues to bleed and keeps dropping hemoglobin hematocrit recommend transfer for a capsule endoscopy and subsequent therapeutic intervention if a bleeding lesion is found in the small bowel Exam Vital Signs Temp Pulse Resp BP Pulse Ox O2 Del Method O2 Flow Rate 98.5 F 113 H 20 110/76 97 Nasal Cannula 2 05/12/25 21:51 05/12/25 21:51 05/12/25 21:51 05/12/25 21:51 05/12/25 21:51 05/12/25 20:00 05/12/25 21:51 Objective Labs 05/12/25 18:59 05/12/25 02:34 Labs: Laboratory Results - last 24 hr 05/10/25 05/12/25 05/12/25 03:10 00:26 02:34 WBC 7.4 RBC 2.67 L Hgb 7.6 L Hct 21.7 L* MCV 81 MCH 28.5 MCHC 35.0 RDW Std Deviation 50.4 H Plt Count 31 L D Neut % (Auto) 61 Lymph % (Auto) 19 [place] % (Auto) 8 Eos % (Auto) 3 Baso % (Auto) 1 Neut # (Auto) 4.5 Lymph # (Auto) 1.4 [place] # (Auto) 0.6 Eos # (Auto) 0.2 Baso # (Auto) 0.1 Immature Gran # (Auto) 0.62 H Absolute Nucleated RBC 0.41 H Immature Gran % 8 H Nucleated RBC % 6 H Smear Path Review Sent to Pathologist PT INR Sodium 137 Potassium 3.6 D Chloride 101 Carbon Dioxide 28.1 Anion Gap 8 BUN 10 Creatinine 0.4 L Estim Creat Clear Calc 199.4 eGFR > 60 BUN/Creatinine Ratio 25 H Glucose 111 H Calculated Osmolality 273 L Calcium 8.4 Corrected Calcium 9.4 Phosphorus 3.4 Magnesium 1.6 Total Bilirubin 1.5 H D AST 17 ALT 13 Alkaline Phosphatase 557 H D Total Protein 4.8 L Albumin 2.8 L D Globulin 2.0 L Albumin/Globulin Ratio 1.4 Misc Test Result Platelets confirmed Blood Type A Positive Cancelled Antibody Screen NEGATIVE Cancelled Crossmatch See Detail See Detail Blood Bank Wristband ID Yes Cancelled Blood Bank Comment FFP Ready 05/12/25 05/12/25 09:38 18:59 WBC RBC Hgb 7.0 L Hct 20.1 L* MCV MCH MCHC RDW Std Deviation Plt Count Neut % (Auto) Lymph % (Auto) [place] % (Auto) Eos % (Auto) Baso % (Auto) Neut # (Auto) Lymph # (Auto) [place] # (Auto) Eos # (Auto) Baso # (Auto) Immature Gran # (Auto) Absolute Nucleated RBC Immature Gran % Nucleated RBC % Smear Path Review PT 15.1 H INR 1.4 H Sodium Potassium Chloride Carbon Dioxide Anion Gap BUN Creatinine Estim Creat Clear Calc eGFR BUN/Creatinine Ratio Glucose Calculated Osmolality Calcium Corrected Calcium Phosphorus Magnesium Total Bilirubin AST ALT Alkaline Phosphatase Total Protein Albumin Globulin Albumin/Globulin Ratio Misc Test Result Blood Type Antibody Screen Crossmatch Blood Bank Wristband ID Blood Bank Comment Impressions Impression: Small bowel bleed Recommend capsule endoscopy if patient continues to bleed Metastatic carcinoma of GI tract region Both upper endoscopy and colonoscopy negative for any primary tumor Assessment & Plan A&P Narrative 1. 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 CA 19?9 alk phos considerably elevated, 2. To benefit from modern cancer therapy including immunotherapy or targeted therapy in this young patient who is motivated to get what ever treatment may benefit him, tissue diagnosis would be needed. 3. Iliac crest biopsy in patient with suspected bone mets was negative for malignancy. Upper endoscopy biopsies revealed no malignancy according to pathologist I spoke with today. 4. Lower endoscopy revealed a possible lesion in the small bowel causing bleeding. No specimens collected. 5. Small bowel follow-through pending. Receiving blood products for support. Time Spent With Patient Time: Total time spent is greater than 50% in coordination of care (as documented) at patient's floor/unit and/or counseling patient:
[2025-05-13] VITALS (13 sets, daily range): BP systolic 105–133; BP diastolic 74–89; PULSE 101–119; RESP 16–24; TEMP 36.1–36.6; O2SAT 95–99
[2025-05-13] MEDS: HYDROmorphone INJ 2 MG/ML VIAL IVP ×4 (00:22→20:09)
[2025-05-13 02:12] LABS: Hematocrit 21.0 % (41.0-53.0)
[2025-05-13 02:14] LABS: Hemoglobin 7.5 g/dL (13.5-16.0)
[2025-05-13 06:38] LABS: Basophils # (Auto) 0.1 Thou/mm3 (0.0-0.2); Basophils % (Auto) 1 % (0-2.5); Eosinophils # (Auto) 0.3 Thou/mm3 (0.0-0.5); Eosinophils % (Auto) 4 % (0-10); Hematocrit 22.8 % (41.0-53.0); Immature Granulocytes Auto 0.80 Thou/mm3 (0.00-0.00); Lymphocytes # (Auto) 1.4 Thou/mm3 (1.0-4.8); Lymphocytes % (Auto) 19 % (10-50); Mean Corpuscular HGB Conc 35.5 g/dl (31.0-37.0); Mean Corpuscular Hemoglobin 29.6 pg (25.0-35.0); Mean Corpuscular Volume 83 fL (80-100); Monocytes # (Auto) 0.6 Thou/mm3 (0.0-0.8); Monocytes % (Auto) 8 % (0-12); Neutrophils # (Auto) 4.3 Thou/mm3 (1.8-7.7); Neutrophils % (Auto) 57 % (37-80); Nucleated Red Blood Cell # 0.20 Thou/mm3 (0.00-0.00); Nucleated Red Blood Cell % 3 /100 WBC (0); RDW Standard Deviation 49.3 fL (35.1-43.9); Red Blood Count 2.74 Miln/mm3 (4.50-5.90); White Blood Count 7.5 Thou/mm3 (3.8-10.6)
[2025-05-13 06:39] LABS: Hemoglobin 8.1 g/dL (13.5-16.0); Platelet Count 65 Thou/mm3 (140-440)
[2025-05-13 06:40] LABS: Slide Review Platelets confirmed
[2025-05-13 07:09] LABS: Alanine Aminotransferase 14 U/L (10-49); Albumin, Serum 3.1 gm/dL (3.5-5.0); Albumin/Globulin Ratio 1.3 (1.2-2.2); Alkaline Phosphatase 571 U/L (46-116); Anion Gap 9 (7-16); Aspartate Amino Transferase 20 U/L (0-34); BUN/Creatinine Ratio 18 Ratio (12-20); Bilirubin,Total 1.7 mg/dL (0.3-1.2); Blood Urea Nitrogen 7 mg/dL (9-23); Calcium 8.3 mg/dL (8.3-10.6); Calcium (Corrected) 9.0 mg/dL (8.5-10.1); Carbon Dioxide 29.7 mMol/L (20.0-31.0); Chloride 100 mMol/L (98-107); Creatinine (Component) 0.4 mg/dL (0.6-1.3); Estimated Creatinine Clearance 199.4 mL/min (>60); Globulin 2.3 gm/dL (2.3-3.5); Glucose 110 mg/dL (74-106); Magnesium 1.5 mg/dL (1.6-2.6); Osmolality,Calculated 276 (275-295); Phosphorous 3.4 mg/dL (2.4-5.1); Potassium 3.5 mMol/L (3.4-5.1); Sodium 139 mMol/L (136-145); Total Protein 5.4 gm/dL (5.7-8.2); eGFR > 60 See Note
[2025-05-13] MEDS: DOXYCYCLINE INJ 100 MG in SODIUM CHLORIDE 0.9% (POP) 100 ML IV ×2 (08:06→22:53)
[2025-05-13] MEDS: Magnesium Sulfate 2 GM Ivpb 2 GM/50 ML BAG IV (10:25)
[2025-05-13] MEDS: DICLOFENAC 1% TOP GEL 100 GM TUBE TOP ×2 (10:26→20:14)
--- NOTE | 2025-05-13 11:45 | PC.SS ---
Addendum entered by MAIRA Montgomery 05/13/25 16:17: SS update: Family is pending their decision on biopsy vs possible hospice services. Per resident, Dr. Schwartz to meet with the family tomorrow morning for their goals of care. Original Note: SS follow up: Contacted patient's, Spouse Jailene Méndez [phone], as medical team has requested a Goals of care discussion for the patient. informs she will be at bed side today, available anytime. Notified resident Dr. Valdivia who informed that Dr. Schwartz has spoken with the family and are pending what the family has decided regarding goals of care.
--- NOTE | 2025-05-13 15:43 | ESPR_ITS ---
<Statement entered by Omid Segundo MD - 05/13/25 19:54> Patient seen and examined at bedside, no acute overnight events. I discussed and supervised with the merchandising intern physician who took care of this patient. I personally saw and examined the patient. I agree with most of the assessment and plan. Patient required additional unit PRBC, 7 total for stay. Appears more ill. Colonoscopy showed significant bleeding but not the source, suspect small bowel bleed. Patient continues to have bloody bowel movements. 200 ml fluid drained from [place]. Extensive goals of care held with patient and family, who seemed to have better understanding of prognosis. Plan for family meeting with Dr. Schwartz at 0900 tomorrow regarding next steps. Holding of on biopsy pending patient/family decision regarding goals of care. Plan of care discussed with attending Dr. Brantley. Omid Segundo MD PGY-2 Documentation for date of: 05/13/25 Subjective Subjective Interval history: Patient received 1 unit PRBC overnight H&H bumped appropriately Drained pleural cath 200 cc bloody fluid Had goals of care discussion with patient family, to discuss whether they would like to proceed with repeat bone biopsy of the hip or to proceed with comfort care with hospice Plan for family meeting with Dr. Schwartz 05/14 at 9 AM Exam Vital Signs Temp Pulse Resp BP Pulse Ox O2 Del Method O2 Flow Rate 97.9 F 110 H 24 H 120/79 98 Nasal Cannula 2 05/13/25 12:00 05/13/25 12:00 05/13/25 12:00 05/13/25 12:00 05/13/25 12:00 05/13/25 12:00 05/13/25 12:00 vital signs within normal limits patient tachycardic to the low 100s on 2 L nasal cannula Narrative Exam GENERAL APPEARANCE: Patient is AO x 3,pale. lean body habitis in no acute distress. pt laying flat in bed HEENT: NC, AT. MMM. EOMI, NECK: No stiffness or restricted ROM. Port A cath clean and dry. HEART: Sinus tachycardia with regular rhythm, normal S1/S2, no m/r/g LUNGS: on 2L NC, pt breathing without accessory muscles, PleurX catheter on right side. ABDOMEN: Soft, nontender, nondistended with bowel sounds heard. BACK: No CVAT, no obvious deformity. EXTREMITIES: Without cyanosis, clubbing or edema. NEUROLOGICAL: Grossly nonfocal. Alert and oriented, moving all 4 extremities. CN not formally tested but appear grossly intact. Skin: Warm and dry without any rash. Psych: Appropriate mood and affect Objective Labs 05/13/25 18:51 05/13/25 05:15 Labs: Laboratory Results - last 24 hr 05/10/25 05/12/25 05/12/25 03:10 00:26 18:59 WBC RBC Hgb 7.0 L Hct 20.1 L* MCV MCH MCHC RDW Std Deviation Plt Count Neut % (Auto) Lymph % (Auto) [place] % (Auto) Eos % (Auto) Baso % (Auto) Neut # (Auto) Lymph # (Auto) [place] # (Auto) Eos # (Auto) Baso # (Auto) Immature Gran # (Auto) Absolute Nucleated RBC Immature Gran % Nucleated RBC % Sodium Potassium Chloride Carbon Dioxide Anion Gap BUN Creatinine Estim Creat Clear Calc eGFR BUN/Creatinine Ratio Glucose Calculated Osmolality Calcium Corrected Calcium Phosphorus Magnesium Total Bilirubin AST ALT Alkaline Phosphatase Total Protein Albumin Globulin Albumin/Globulin Ratio Misc Test Result Blood Type A Positive Cancelled Antibody Screen NEGATIVE Cancelled Crossmatch See Detail See Detail Blood Bank Wristband ID Yes Cancelled Blood Bank Comment FFP Ready 05/13/25 05/13/25 01:36 05:15 WBC 7.5 RBC 2.74 L Hgb 7.5 L 8.1 L Hct 21.0 L* 22.8 L MCV 83 MCH 29.6 MCHC 35.5 RDW Std Deviation 49.3 H Plt Count 65 L D Neut % (Auto) 57 Lymph % (Auto) 19 [place] % (Auto) 8 Eos % (Auto) 4 Baso % (Auto) 1 Neut # (Auto) 4.3 Lymph # (Auto) 1.4 [place] # (Auto) 0.6 Eos # (Auto) 0.3 Baso # (Auto) 0.1 Immature Gran # (Auto) 0.80 H Absolute Nucleated RBC 0.20 H Immature Gran % 11 H Nucleated RBC % 3 H Sodium 139 Potassium 3.5 Chloride 100 Carbon Dioxide 29.7 Anion Gap 9 BUN 7 L Creatinine 0.4 L Estim Creat Clear Calc 199.4 eGFR > 60 BUN/Creatinine Ratio 18 Glucose 110 H Calculated Osmolality 276 Calcium 8.3 Corrected Calcium 9.0 Phosphorus 3.4 Magnesium 1.5 L Total Bilirubin 1.7 H AST 20 ALT 14 Alkaline Phosphatase 571 H Total Protein 5.4 L Albumin 3.1 L Globulin 2.3 Albumin/Globulin Ratio 1.3 Misc Test Result Platelets confirmed Blood Type Antibody Screen Crossmatch Blood Bank Wristband ID Blood Bank Comment Quality Measures Quality Measures VTE prophylaxis Assessment & Plan Assessment Current Active Medications: Generic Name Dose Route Start Last Admin Trade Name Freq PRN Reason Stop Dose Admin Acetaminophen 650 mg 05/07/25 04:49 Acetaminophen 325 Mg Tablet PO 06/06/25 04:48 Q6H PRN Pain 1-3 and / or fever >100.1 Diclofenac Sodium 1 gm 05/12/25 10:30 05/13/25 10:26 Diclofenac 1% Top Gel 100 Gm Tube TOP 06/11/25 10:29 1 gm BID JUAN JOSE Administration Guaifenesin 100 mg 05/08/25 21:09 05/11/25 01:02 Guaifenesin Syrup 200 Mg/10 Ml Udc PO 06/07/25 21:08 100 mg QID PRN Administration COUGH Protocol Hydromorphone HCl 2 mg 05/12/25 07:38 05/13/25 08:07 Hydromorphone Inj 2 Mg/Ml Vial IVP 05/17/25 07:37 2 mg Q4HR PRN Administration PAIN SCALE 4-10(Mod-Sev Doxycycline Hyclate 100 mg/ 100 mls @ 100 mls/hr 05/11/25 21:00 05/13/25 08:06 Sodium Chloride IV 05/18/25 20:59 100 mls/hr BID JUAN JOSE Administration Lidocaine 1 patch 05/12/25 07:39 05/12/25 11:30 Lidocaine 5% 1 Patch TOP 06/11/25 07:38 1 patch UD PRN Administration shoulder pain Protocol Ondansetron HCl 4 mg 05/07/25 04:49 05/07/25 07:51 Ondansetron Inj 2 Mg/Ml Inj 2 Ml IVP 06/06/25 04:48 4 mg Q6H PRN Administration NAUSEA OR VOMITING Protocol Pantoprazole Sodium 40 mg 05/08/25 21:30 05/13/25 08:06 Pantoprazole Inj 40 Mg Vial IVP 08/04/25 21:29 40 mg BID JUAN JOSE Administration Sennosides 1 tab 05/07/25 04:49 05/09/25 05:44 Senna Tablet PO 06/06/25 04:48 1 tab QDAY PRN Administration constipation Protocol Plan Mr. 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 He was found to have empyema and right lung pneumonia and multiple acute drops in hemoglobin, Pt fibringen wnl. Pt has required multiple transfusions with 7 PRBC and 2 platelet. And 1 unit FFP. While inpatient, patient's evaluation for GI bleed has been unrevealing. Thus far we have not been able to identify the source of the bleeding nor have we been able to identify primary malignancy. Patient is clinically unstable requiring nearly daily PRBC transfusions, given that today we drained Pleur-evac 200cc bloody fluid removed follow-up with evening H&H and transfuse if less than 7. Pending goals of care discussion with Dr. cShwartz tomorrow. #History of metastatic GI malignancy mets to bones, lung with pulmonary nodules #Elevated T. bili with elevated ALP likely related to malignancy Patient did not start chemotherapy sessions till date. BM biopsy results were inconclusive (per Dr. Summers incorrect bone biopsy needle was used for this sample) Spoke with Dr. Summers 05/12 to discuss potential repeat biopsy of iliac bone met, iliac bone met safer site for biopsy compared to left shoulder metastasis, Dr Gilbert to redo biopsy pending family decision on whether they would like to proceed. Had goals of care discussion with patient and family today to discuss the viability of proceeding with biopsy to determine what kind of cancer versus hospice care. Patient met with Ellie from hospice care to discuss their options. Holding off on small bowel follow-through to assess for bleeding given upcoming discussion with Regarding whether to proceed with hospice care and avoid further invasive procedures Plan: - Pending goals of care discussion with Dr. Schwartz tomorrow at 9 AM ? Brain MRI- Negative for mets - GI consulted, appreciate recs - EGD 05/10 with gastritis - EGD stomach biopsies pathology report shows mild inactive gastritis, negative for signs of metaplasia, dysplasia, or malignancy, negative for H. pylori organisms - Colonoscopy completed, blood in the colon all the way up to the ileocecal valve, there was concern for small bowel bleeding - Clear liquid diet advance as tolerated #Multiple Acutes drop in hemoglobin requiring transfusion #Chronic normocytic anemia #Chronic thrombocytopenia ? In the setting of malignancy of unknown origin Low hemoglobin of 6.5 and platelets of 64 likely 2/2 myelosuppression of bone marrow from infiltration of metastatic GI malignancy (WBC normal at 9.5) Myelosuppression hypothesis supported by presence of nucleated RBC's at 9/100 indicating abnormal bone marrow function May also be 2/2 underlying hemolytic anemia due to elevated LDH of 459, Fibrinogen wnl pt denies having a history of GI bleeds, however while undergoing golytely prep, pt noted to have melena and BRBPR with hgb drop requiring 2 unit prbc transfusion Acute anemia likely 2/2 GI bleed, pending colonoscopy tomorrow. Upper GI bleed in stomach or duodenum unlikely given EGD findings, however consider small bowel bleed. Plan: - Daily CBC - Follow-up p.m. H&H ? 7 units PRBC transfused total ? PRBC if hemoglobin drops below 7 ? Bone marrow biopsy results pending ? Bleeding precautions - 05/12 transfused 1 unit FFP and 1 unit platelets, follow-up a.m. CBC #Acute respiratory distress likely secondary to #Right-sided malignant effusion, and possible community-acquired pneumonia #Left-sided pleural effusion In the setting of metastatic GI malignancy mets to bones and lung Initial CT chest impression: loculated moderate right pleural effusion with air loculi inside suggestive of pleural empyema. Possibly 2/2 metastasis of GI malignancy to lungs and bone resulting in more frequent infections from immunocompromised status and recurrent pleural effusions. MR brain 05/07: No abnormal enhancing cerebellar or cerebral lesions Left sided thoracentesis performed 05/09, removed 1.4 L fluid, Bloody, wbc: 988 RBC 74416, LDH 473 Pleur-evac drained 05/14, follow-up H&H, ordered 2 units of PRBC on standby Plan: - 05/13 200 cc removed from right Pleur-evac - 650 cc removed from RIGHT pleurvac 05/07, 500 cc removed 05/09 ? Will consider dornase to help with draining ? Consulted menagerie superintendent, Dr. Bonds, appreciate recs. ? Monitor for signs of respiratory distress #Community-acquired pneumonia ?In the setting of infection/empyema Initial CT chest impression: consolidations in the right middle and lower lobes. Absence of fever and lack of elevated WBC may be explained by myelosuppression of bone marrow 2/2 metastasis of osteoblastic lesions (anemia and thrombocytopenia present). Plan: ? d/c vancomycin and cefepime (05/07- 05/11) - Continue doxycycline 100 mg BID IV (05/11- ? Bcx, NGTD @48 hrs - Sputum cultures 4+ mixed oral christal , appear contaminated ? Monitor for signs of fever Health Maintenance: Disposition: Planning goals of care discussion with Dr. Schwartz tomorrow 9 AM, Diet: Clear liquid diet advance as tolerated DVT prophylaxis: SCDs GI prophylaxis: Protonix 40 mg IV daily CODE STATUS: Full code Case discussed with my senior resident Dr. Segundo Case discussed with my attending Dr. Karon Lester MD PGY-1 Attending Provider Attestation/Addendum Padmini Key, DO, attest that I was physically present for the mclaughlin portions of the service and evaluated the patient with the resident and I reviewed and discussed the case with the resident and agree with the resident's findings and plans of care as documented above Patient seen and eval this a.m. No acute events overnight. Patient continues to have some mild chest discomfort. Drainage from Pleurx catheter yielded 300 mL of bloody effusion. Spoke to patient's , brother, [id number] and daughter over the phone to explain patient's current condition. Offered for biopsy that can be ordered for tomorrow morning. However, patient and family wish to speak to oncology regarding goals of care as well. Discussed with oncology who will meet with family tomorrow morning 9. Will follow-up with discussion regarding patient's goals of cares and further workup versus focus on quality of life on hospice. Hemoglobin has otherwise been stable. No acute events overnight.
[2025-05-13 19:04] LABS: Hematocrit 20.4 % (41.0-53.0)
[2025-05-13 19:05] LABS: Hemoglobin 7.2 g/dL (13.5-16.0)
--- NOTE | 2025-05-13 19:19 | PC.NURSE ---
Dr. Bernal made aware of Hgb and Hct levels. MD ordered to transfuse 1 unit of PRBCs now and have post H/H drawn one hour after transfusion.
--- NOTE | 2025-05-13 19:24 | ESPR_ITS ---
Documentation for date of: 05/13/25 Subjective Subjective Interval history: Downtrending hemoglobin to 7.2 and hematocrit 20.4 Bloody pleural effusion Internal medicine team in discussion with the family for comfort care or hospice care Meeting scheduled with Dr. Watson oncologist Exam Vital Signs Temp Pulse Resp BP Pulse Ox O2 Del Method O2 Flow Rate 97.7 F 111 H 23 H 133/78 H 99 Nasal Cannula 2 05/13/25 16:00 05/13/25 16:00 05/13/25 16:00 05/13/25 16:00 05/13/25 16:00 05/13/25 16:00 05/13/25 16:00 Objective Labs 05/13/25 18:51 05/13/25 05:15 Labs: Laboratory Results - last 24 hr 05/10/25 05/12/25 05/13/25 03:10 00:26 01:36 WBC RBC Hgb 7.5 L Hct 21.0 L* MCV MCH MCHC RDW Std Deviation Plt Count Neut % (Auto) Lymph % (Auto) [place] % (Auto) Eos % (Auto) Baso % (Auto) Neut # (Auto) Lymph # (Auto) [place] # (Auto) Eos # (Auto) Baso # (Auto) Immature Gran # (Auto) Absolute Nucleated RBC Immature Gran % Nucleated RBC % Sodium Potassium Chloride Carbon Dioxide Anion Gap BUN Creatinine Estim Creat Clear Calc eGFR BUN/Creatinine Ratio Glucose Calculated Osmolality Calcium Corrected Calcium Phosphorus Magnesium Total Bilirubin AST ALT Alkaline Phosphatase Total Protein Albumin Globulin Albumin/Globulin Ratio Misc Test Result Blood Type A Positive Cancelled Antibody Screen NEGATIVE Cancelled Crossmatch See Detail See Detail Blood Bank Wristband ID Yes Cancelled Blood Bank Comment FFP Ready 05/13/25 05/13/25 05:15 18:51 WBC 7.5 RBC 2.74 L Hgb 8.1 L 7.2 L Hct 22.8 L 20.4 L* MCV 83 MCH 29.6 MCHC 35.5 RDW Std Deviation 49.3 H Plt Count 65 L D Neut % (Auto) 57 Lymph % (Auto) 19 [place] % (Auto) 8 Eos % (Auto) 4 Baso % (Auto) 1 Neut # (Auto) 4.3 Lymph # (Auto) 1.4 [place] # (Auto) 0.6 Eos # (Auto) 0.3 Baso # (Auto) 0.1 Immature Gran # (Auto) 0.80 H Absolute Nucleated RBC 0.20 H Immature Gran % 11 H Nucleated RBC % 3 H Sodium 139 Potassium 3.5 Chloride 100 Carbon Dioxide 29.7 Anion Gap 9 BUN 7 L Creatinine 0.4 L Estim Creat Clear Calc 199.4 eGFR > 60 BUN/Creatinine Ratio 18 Glucose 110 H Calculated Osmolality 276 Calcium 8.3 Corrected Calcium 9.0 Phosphorus 3.4 Magnesium 1.5 L Total Bilirubin 1.7 H AST 20 ALT 14 Alkaline Phosphatase 571 H Total Protein 5.4 L Albumin 3.1 L Globulin 2.3 Albumin/Globulin Ratio 1.3 Misc Test Result Platelets confirmed Blood Type Antibody Screen Crossmatch See Detail Blood Bank Wristband ID Yes Blood Bank Comment Impressions Impression: Small bowel bleed with additional bleeding in the right pleural fluid cavity Transfuse if the hemoglobin drops below 7 g Assessment & Plan A&P Narrative 1. 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 CA 19?9 alk phos considerably elevated, 2. To benefit from modern cancer therapy including immunotherapy or targeted therapy in this young patient who is motivated to get what ever treatment may benefit him, tissue diagnosis would be needed. 3. Iliac crest biopsy in patient with suspected bone mets was negative for malignancy. Upper endoscopy biopsies revealed no malignancy according to pathologist I spoke with today. 4. Lower endoscopy revealed a possible lesion in the small bowel causing bleeding. No specimens collected. 5. Small bowel follow-through pending. Receiving blood products for support. Time Spent With Patient Time: Total time spent is greater than 50% in coordination of care (as documented) at patient's floor/unit and/or counseling patient:
--- NOTE | 2025-05-13 19:54 | PC.NURSE ---
Blood type and antibody screen still pending at this time.
[2025-05-14] VITALS (17 sets, daily range): BP systolic 103–136; BP diastolic 68–89; PULSE 69–120; RESP 11–26; TEMP 36–37; O2SAT 96–100
[2025-05-14 00:37] LABS: Hematocrit 22.5 % (41.0-53.0)
[2025-05-14 00:39] LABS: Hemoglobin 7.8 g/dL (13.5-16.0)
--- NOTE | 2025-05-14 02:12 | PC.NURSE ---
Dr. Bernal made aware of post H/H. stated not to give another unit of PRBCs and wait for AM draws.
[2025-05-14] MEDS: HYDROmorphone INJ 2 MG/ML VIAL IVP ×4 (04:36→17:50)
[2025-05-14 06:33] LABS: Basophils # (Auto) 0.1 Thou/mm3 (0.0-0.2); Basophils % (Auto) 1 % (0-2.5); Eosinophils # (Auto) 0.3 Thou/mm3 (0.0-0.5); Eosinophils % (Auto) 4 % (0-10); Hematocrit 23.5 % (41.0-53.0); Immature Granulocytes Auto 0.95 Thou/mm3 (0.00-0.00); Lymphocytes # (Auto) 1.4 Thou/mm3 (1.0-4.8); Lymphocytes % (Auto) 18 % (10-50); Mean Corpuscular HGB Conc 34.0 g/dl (31.0-37.0); Mean Corpuscular Hemoglobin 29.1 pg (25.0-35.0); Mean Corpuscular Volume 86 fL (80-100); Monocytes # (Auto) 0.7 Thou/mm3 (0.0-0.8); Monocytes % (Auto) 8 % (0-12); Neutrophils # (Auto) 4.6 Thou/mm3 (1.8-7.7); Neutrophils % (Auto) 57 % (37-80); Nucleated Red Blood Cell # 0.27 Thou/mm3 (0.00-0.00); Nucleated Red Blood Cell % 3 /100 WBC (0); RDW Standard Deviation 49.3 fL (35.1-43.9); Red Blood Count 2.75 Miln/mm3 (4.50-5.90); White Blood Count 8.0 Thou/mm3 (3.8-10.6)
[2025-05-14 06:42] LABS: Hemoglobin 8.0 g/dL (13.5-16.0); Platelet Count 48 Thou/mm3 (140-440)
[2025-05-14 06:58] LABS: Alanine Aminotransferase 16 U/L (10-49); Albumin, Serum 3.1 gm/dL (3.5-5.0); Albumin/Globulin Ratio 1.4 (1.2-2.2); Alkaline Phosphatase 651 U/L (46-116); Anion Gap 10 (7-16); Aspartate Amino Transferase 22 U/L (0-34); BUN/Creatinine Ratio 25 Ratio (12-20); Bilirubin,Total 1.7 mg/dL (0.3-1.2); Blood Urea Nitrogen 10 mg/dL (9-23); Calcium 8.5 mg/dL (8.3-10.6); Calcium (Corrected) 9.2 mg/dL (8.5-10.1); Carbon Dioxide 26.5 mMol/L (20.0-31.0); Chloride 103 mMol/L (98-107); Creatinine (Component) 0.4 mg/dL (0.6-1.3); Estimated Creatinine Clearance 199.4 mL/min (>60); Globulin 2.2 gm/dL (2.3-3.5); Glucose 121 mg/dL (74-106); Magnesium 1.4 mg/dL (1.6-2.6); Osmolality,Calculated 277 (275-295); Phosphorous 3.3 mg/dL (2.4-5.1); Potassium 3.7 mMol/L (3.4-5.1); Sodium 139 mMol/L (136-145); Total Protein 5.3 gm/dL (5.7-8.2); eGFR > 60 See Note
--- NOTE | 2025-05-14 07:21 | ESPR_ITS ---
<Statement entered by Omid Segundo MD - 05/14/25 16:10> Patient seen and examined at bedside, no acute overnight events. I discussed and supervised with the media intern physician who took care of this patient. I personally saw and examined the patient. I agree with most of the assessment and plan. Patient and family have agreed to hospice, after extensive goals of care conversations. Patient pending home hospice to be set-up, probable discharge tomorrow. Transfusing PRBC, FFP, platelets to improve patient stability prior to discharge. Plan of care discussed with attending Dr. Aburto. Omid Segundo MD PGY-2 Documentation for date of: 05/14/25 Subjective Subjective Interval history: Patient received 1 unit PRBC overnight and H&H posttransfusion bumped appropriately Goals of care discussion had with Dr. Schwartz and family and internal medicine team Exam Vital Signs Temp Pulse Resp BP Pulse Ox O2 Del Method O2 Flow Rate 97.7 F 101 H 26 H 120/89 H 99 Nasal Cannula 2 05/14/25 04:00 05/14/25 07:18 05/14/25 07:18 05/14/25 04:00 05/14/25 07:18 05/14/25 04:00 05/14/25 07:18 24-hour vital signs reviewed mildly tachycardic to 100s satting well on 2 L nasal cannula Narrative Exam GENERAL APPEARANCE: Patient is AO x 3,pale. lean body habitis in no acute distress. pt laying flat in bed HEENT: NC, AT. MMM. EOMI, NECK: No stiffness or restricted ROM. Port A cath clean and dry. HEART: Sinus tachycardia with regular rhythm, normal S1/S2, no m/r/g LUNGS: on 2L NC, pt breathing without accessory muscles, PleurX catheter on right side. ABDOMEN: Soft, nontender, nondistended with bowel sounds heard. BACK: No CVAT, no obvious deformity. EXTREMITIES: Without cyanosis, clubbing or edema. NEUROLOGICAL: Grossly nonfocal. Alert and oriented, moving all 4 extremities. CN not formally tested but appear grossly intact. Skin: Warm and dry without any rash. Psych: Patient appears depressed mood low affect Objective Labs 05/14/25 13:38 05/14/25 06:09 Labs: Laboratory Results - last 24 hr 05/13/25 05/14/25 05/14/25 18:51 00:17 06:09 WBC 8.0 RBC 2.75 L Hgb 7.2 L 7.8 L 8.0 L Hct 20.4 L* 22.5 L 23.5 L MCV 86 MCH 29.1 MCHC 34.0 RDW Std Deviation 49.3 H Plt Count 48 L D Neut % (Auto) 57 Lymph % (Auto) 18 [place] % (Auto) 8 Eos % (Auto) 4 Baso % (Auto) 1 Neut # (Auto) 4.6 Lymph # (Auto) 1.4 [place] # (Auto) 0.7 Eos # (Auto) 0.3 Baso # (Auto) 0.1 Immature Gran # (Auto) 0.95 H Absolute Nucleated RBC 0.27 H Immature Gran % 12 H Nucleated RBC % 3 H Sodium 139 Potassium 3.7 Chloride 103 Carbon Dioxide 26.5 Anion Gap 10 BUN 10 Creatinine 0.4 L Estim Creat Clear Calc 199.4 eGFR > 60 BUN/Creatinine Ratio 25 H Glucose 121 H Calculated Osmolality 277 Calcium 8.5 Corrected Calcium 9.2 Phosphorus 3.3 Magnesium 1.4 L Total Bilirubin 1.7 H AST 22 ALT 16 Alkaline Phosphatase 651 H D Total Protein 5.3 L Albumin 3.1 L Globulin 2.2 L Albumin/Globulin Ratio 1.4 Blood Type A Positive Antibody Screen NEGATIVE Crossmatch See Detail Blood Bank Wristband ID Yes Quality Measures Quality Measures VTE prophylaxis Assessment & Plan Assessment Current Active Medications: Generic Name Dose Route Start Last Admin Trade Name Willie PRN Reason Stop Dose Admin Acetaminophen 650 mg 05/07/25 04:49 Acetaminophen 325 Mg Tablet PO 06/06/25 04:48 Q6H PRN Pain 1-3 and / or fever >100.1 Diclofenac Sodium 1 gm 05/12/25 10:30 05/13/25 20:14 Diclofenac 1% Top Gel 100 Gm Tube TOP 06/11/25 10:29 1 gm BID JUAN JOSE Administration Guaifenesin 100 mg 05/08/25 21:09 05/11/25 01:02 Guaifenesin Syrup 200 Mg/10 Ml Udc PO 06/07/25 21:08 100 mg QID PRN Administration COUGH Protocol Hydromorphone HCl 2 mg 05/12/25 07:38 05/14/25 04:36 Hydromorphone Inj 2 Mg/Ml Vial IVP 05/17/25 07:37 2 mg Q4HR PRN Administration PAIN SCALE 4-10(Mod-Sev Doxycycline Hyclate 100 mg/ 100 mls @ 100 mls/hr 05/11/25 21:00 05/13/25 22:53 Sodium Chloride IV 05/18/25 20:59 100 mls/hr BID JUAN JOSE Administration Lidocaine 1 patch 05/12/25 07:39 05/12/25 11:30 Lidocaine 5% 1 Patch TOP 06/11/25 07:38 1 patch UD PRN Administration shoulder pain Protocol Ondansetron HCl 4 mg 05/07/25 04:49 05/07/25 07:51 Ondansetron Inj 2 Mg/Ml Inj 2 Ml IVP 06/06/25 04:48 4 mg Q6H PRN Administration NAUSEA OR VOMITING Protocol Pantoprazole Sodium 40 mg 05/08/25 21:30 05/13/25 20:12 Pantoprazole Inj 40 Mg Vial IVP 06/07/25 21:29 40 mg BID JUAN JOSE Administration Sennosides 1 tab 05/07/25 04:49 05/09/25 05:44 Senna Tablet PO 06/06/25 04:48 1 tab QDAY PRN Administration constipation Protocol Plan Mr. 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 He was found to have empyema and right lung pneumonia and multiple acute drops in hemoglobin, Pt fibringen wnl. Pt has required multiple transfusions with 7 PRBC and 2 platelet. And 1 unit FFP. While inpatient, patient's evaluation for GI bleed has been unrevealing. Thus far we have not been able to identify the source of the bleeding nor have we been able to identify primary malignancy. Patient is clinically unstable requiring nearly daily PRBC transfusions. Following an extensive goals of care discussion with Dr. Schwartz, medical team, patient and patient family decision was made to proceed with hospice care at home. #History of metastatic GI malignancy mets to bones, lung with pulmonary nodules #Elevated T. bili with elevated ALP likely related to malignancy Patient did not start chemotherapy sessions till date. BM biopsy results were inconclusive (per Dr. Summers incorrect bone biopsy needle was used for this sample) 05/14:Had extensive goals of care discussion with patient and family with Dr. Schwartz present today to discuss the viability of proceeding with biopsy to determine what kind of cancer versus hospice care. Decision was made to proceed with hospice care patient's family was extensively counseled on the limitations of the care that he would receive while in the hospital. Discussed the feasibility of getting blood transfusions while in hospice care at home. Patient family counseled that patient can return to hospital if he becomes symptomatic or they have additional concerns requiring medical intervention. Per Dr. Schwartz from a cancer perspective patient has between 1 to 3 months prognosis however prognosis may be decreased due to unstable clinical condition requiring daily blood transfusions. Plan: - Plan for hospice tomorrow with discharge ? Brain MRI- Negative for mets - GI consulted, appreciate recs - EGD 05/10 with gastritis - EGD stomach biopsies pathology report shows mild inactive gastritis, negative for signs of metaplasia, dysplasia, or malignancy, negative for H. pylori organisms - Colonoscopy completed, blood in the colon all the way up to the ileocecal valve, there was concern for small bowel bleeding - Full liquid diet, advance as tolerated #Multiple Acutes drop in hemoglobin requiring transfusion #Chronic normocytic anemia #Chronic thrombocytopenia ? In the setting of malignancy of unknown origin Low hemoglobin of 6.5 and platelets of 64 likely 2/2 myelosuppression of bone marrow from infiltration of metastatic GI malignancy (WBC normal at 9.5) Myelosuppression hypothesis supported by presence of nucleated RBC's at 9/100 indicating abnormal bone marrow function May also be 2/2 underlying hemolytic anemia due to elevated LDH of 459, Fibrinogen wnl pt denies having a history of GI bleeds, however while undergoing golytely prep, pt noted to have melena and BRBPR with hgb drop requiring 2 unit prbc transfusion Acute anemia likely 2/2 GI bleed, pending colonoscopy tomorrow. Upper GI bleed in stomach or duodenum unlikely given EGD findings, however consider small bowel bleed. At this time family would not like to proceed with further invasive interventions to work up GI bleeding. Will continue to transfuse blood while inpatient as indicated by hemoglobin less than 7 Plan: - Daily CBC - Follow-up p.m. H&H ? 8 units PRBC transfused total, 2 units on standby, - 1 unit total FFP given to date - 3 units platelets given to date ? PRBC if hemoglobin drops below 7 ? Bone marrow biopsy results pending ? Bleeding precautions #Acute respiratory distress likely secondary to #Right-sided malignant effusion, and possible community-acquired pneumonia #Left-sided pleural effusion In the setting of metastatic GI malignancy mets to bones and lung Initial CT chest impression: loculated moderate right pleural effusion with air loculi inside suggestive of pleural empyema. Possibly 2/2 metastasis of GI malignancy to lungs and bone resulting in more frequent infections from immunocompromised status and recurrent pleural effusions. MR brain 05/07: No abnormal enhancing cerebellar or cerebral lesions Left sided thoracentesis performed 05/09, removed 1.4 L fluid, Bloody, wbc: 988 RBC 21491, LDH 473 Plan: - 05/13 200 cc removed from right Pleur-evac - 650 cc removed from RIGHT pleurvac 05/07, 500 cc removed 05/09 ? Will consider dornase to help with draining ? Consulted retail office associate, Dr. Bonds, appreciate recs. ? Monitor for signs of respiratory distress #Community-acquired pneumonia ?In the setting of infection/empyema Initial CT chest impression: consolidations in the right middle and lower lobes. Absence of fever and lack of elevated WBC may be explained by myelosuppression of bone marrow 2/2 metastasis of osteoblastic lesions (anemia and thrombocytopenia present). Plan: ? d/c vancomycin and cefepime (05/07- 05/11) - Continue doxycycline 100 mg BID IV (05/11- ? Bcx, NGTD @48 hrs - Sputum cultures 4+ mixed oral christal , appear contaminated ? Monitor for signs of fever Health Maintenance: Disposition: After having goals of care discussion with family and Dr. Schwartz family opts for hospice care at home will plan for discharge tomorrow, coordinate with social work program coordinator about home equipment needed Diet: Full liquid diet advance as tolerated DVT prophylaxis: SCDs GI prophylaxis: Protonix 40 mg IV daily CODE STATUS: Full code Case discussed with my senior resident Dr. Segundo Case discussed with my attending Dr. Criselda Lester MD PGY-1 Attending Provider Attestation/Addendum I attest that I was physically present for the evaluation, physical examination, lab and imaging review of the patient with the residents. I discussed the case with the residents and agree with the findings and plans of care as documented above. At bedside today, patient states he feels the same compared to yesterday. Hemoglobin this morning was 8.0 from 8.1 yesterday, patient received transfusion overnight. Repleted magnesium. Follow-up hemoglobin level this afternoon was 7.2, we will transfuse more. Had a long discussion with patient and family at bedside with internal medicine team, oncology. Explained in detail about parents current status, guarded prognosis and further treatment options including aggressive medical management with transfer to higher center for further investigation to diagnose the type of malignancy and possible therapy after that, comfort focused treatment with hospice, discharged to home with visits to ED/oncology clinic for blood transfusions. Patient's family opted for hospice care. Hospice referral ordered. Likely DC in next 24 hours if hemoglobin remains stable and hospice set up is done. Travis Aburto MD
[2025-05-14] MEDS: DOXYCYCLINE INJ 100 MG in SODIUM CHLORIDE 0.9% (POP) 100 ML IV ×2 (08:47→21:01)
[2025-05-14] MEDS: Magnesium Sulfate 4 GM Ivpb 4 GM/50 ML BAG IV (09:35)
--- NOTE | 2025-05-14 09:50 | PD.ONCPROG ---
Documentation for date of: 05/14/25 Subjective Subjective Interval history: Patient lying comfortably this a.m. A.m. CBC 8.0 WBC hemoglobin 8.0 platelets 48,000 Exam Vital Signs Temp Pulse Resp BP Pulse Ox O2 Del Method O2 Flow Rate 96.8 F 98 16 103/68 98 Nasal Cannula 1 05/14/25 08:00 05/14/25 08:00 05/14/25 08:00 05/14/25 08:00 05/14/25 08:00 05/14/25 08:00 05/14/25 08:00 Narrative Exam Lying comfortable this a.m. Objective Labs 05/14/25 06:09 05/14/25 06:09 Labs: Laboratory Results - last 24 hr 05/13/25 05/14/25 05/14/25 18:51 00:17 06:09 WBC 8.0 RBC 2.75 L Hgb 7.2 L 7.8 L 8.0 L Hct 20.4 L* 22.5 L 23.5 L MCV 86 MCH 29.1 MCHC 34.0 RDW Std Deviation 49.3 H Plt Count 48 L D Neut % (Auto) 57 Lymph % (Auto) 18 [place] % (Auto) 8 Eos % (Auto) 4 Baso % (Auto) 1 Neut # (Auto) 4.6 Lymph # (Auto) 1.4 [place] # (Auto) 0.7 Eos # (Auto) 0.3 Baso # (Auto) 0.1 Immature Gran # (Auto) 0.95 H Absolute Nucleated RBC 0.27 H Immature Gran % 12 H Nucleated RBC % 3 H Sodium 139 Potassium 3.7 Chloride 103 Carbon Dioxide 26.5 Anion Gap 10 BUN 10 Creatinine 0.4 L Estim Creat Clear Calc 199.4 eGFR > 60 BUN/Creatinine Ratio 25 H Glucose 121 H Calculated Osmolality 277 Calcium 8.5 Corrected Calcium 9.2 Phosphorus 3.3 Magnesium 1.4 L Total Bilirubin 1.7 H AST 22 ALT 16 Alkaline Phosphatase 651 H D Total Protein 5.3 L Albumin 3.1 L Globulin 2.2 L Albumin/Globulin Ratio 1.4 Blood Type A Positive Antibody Screen NEGATIVE Crossmatch See Detail Blood Bank Wristband ID Yes Assessment & Plan A&P Narrative 1. 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 CA 19?9 alk phos considerably elevated, 2. To benefit from modern cancer therapy including immunotherapy or targeted therapy in this young patient who is motivated to get what ever treatment may benefit him, tissue diagnosis would be needed. 3. Iliac crest biopsy in patient with suspected bone mets was negative for malignancy. Upper endoscopy biopsies revealed no malignancy; lower endoscopy possible lesion causing bleeding noted. No specimen collected. 4. Small bowel series shows no lesions. Transfer to tertiary center for capsule endoscopy discussed as suggested by Dr. Watson. 5. Hospice option in light of the widespread mets involving bone and lung and likely small bowel discussed with hospice with members of hospital medical staff present. 6. Despite likely poor prognosis, family at this time appears to want to consider all options to further diagnose and eventually treat the cancer problem. Time Spent With Patient Time: Total time spent is greater than 50% in coordination of care (as documented) at patient's floor/unit and/or counseling patient:
[2025-05-14 10:16] LABS: Slide Review Platelets confirmed
[2025-05-14 10:27] LABS: Path Review Blood Smear Sent to Pathologist
[2025-05-14] MEDS: Magnesium Sulfate 2 GM Ivpb 2 GM/50 ML BAG IV (13:26)
--- NOTE | 2025-05-14 13:40 | PC.SS ---
SS met with pt, pt Waleska Méndez [phone], and dtr Rosana Toscano [phone] in regards to Hospice. All questions answered. [facility] has decided to proceed with Hospice. Per Rosana they have been in contact with [facility]. Referral submitted via [employer]. DME required for home, Hospital bed, O2, and BSC. SS reached out to Ren[facility] [phone] and Lisa [phone], they are working on delivery of DME and will contact when ready for transport
[2025-05-14 13:41] LABS: Hematocrit 20.5 % (41.0-53.0)
[2025-05-14 13:53] LABS: Hemoglobin 7.2 g/dL (13.5-16.0)
--- NOTE | 2025-05-14 15:09 | PC.SS ---
SS spoke to Zaira [phone] at [facility] to be delivered this evening. SS spoke to pt dtr Rosana [phone] who is in agreement. Pt will DC tomorrow and will need ambulance transport. SS to coordinate with pt dtbernardino Wayne on a good time to receive pt. Pt possesses coverage for [employer] transport.
--- NOTE | 2025-05-14 17:55 | PD.IMPROG ---
Documentation for date of: 05/14/25 Subjective Subjective Interval history: Family wants all options on the table [place] is to transfer the patient to a tertiary center for capsule endoscopy and further evaluation for tissue diagnosis before any chemotherapy agent or immunotherapy can be considered Exam Vital Signs Temp Pulse Resp BP Pulse Ox O2 Del Method O2 Flow Rate 97.2 F 112 H 18 112/74 98 Nasal Cannula 2 05/14/25 16:32 05/14/25 16:32 05/14/25 16:32 05/14/25 16:32 05/14/25 16:32 05/14/25 16:00 05/14/25 16:32 Objective Labs 05/14/25 13:38 05/14/25 06:09 Labs: Laboratory Results - last 24 hr 05/13/25 05/14/25 05/14/25 18:51 00:17 06:09 WBC 8.0 RBC 2.75 L Hgb 7.2 L 7.8 L 8.0 L Hct 20.4 L* 22.5 L 23.5 L MCV 86 MCH 29.1 MCHC 34.0 RDW Std Deviation 49.3 H Plt Count 48 L D Neut % (Auto) 57 Lymph % (Auto) 18 [place] % (Auto) 8 Eos % (Auto) 4 Baso % (Auto) 1 Neut # (Auto) 4.6 Lymph # (Auto) 1.4 [place] # (Auto) 0.7 Eos # (Auto) 0.3 Baso # (Auto) 0.1 Immature Gran # (Auto) 0.95 H Absolute Nucleated RBC 0.27 H Immature Gran % 12 H Nucleated RBC % 3 H Smear Path Review Sent to Pathologist Sodium 139 Potassium 3.7 Chloride 103 Carbon Dioxide 26.5 Anion Gap 10 BUN 10 Creatinine 0.4 L Estim Creat Clear Calc 199.4 eGFR > 60 BUN/Creatinine Ratio 25 H Glucose 121 H Calculated Osmolality 277 Calcium 8.5 Corrected Calcium 9.2 Phosphorus 3.3 Magnesium 1.4 L Total Bilirubin 1.7 H AST 22 ALT 16 Alkaline Phosphatase 651 H D Total Protein 5.3 L Albumin 3.1 L Globulin 2.2 L Albumin/Globulin Ratio 1.4 Misc Test Result Platelets confirmed Blood Type A Positive Antibody Screen NEGATIVE Crossmatch See Detail Blood Bank Wristband ID Yes Blood Bank Comment PLATP Ready 05/14/25 13:38 WBC RBC Hgb 7.2 L Hct 20.5 L* MCV MCH MCHC RDW Std Deviation Plt Count Neut % (Auto) Lymph % (Auto) [place] % (Auto) Eos % (Auto) Baso % (Auto) Neut # (Auto) Lymph # (Auto) [place] # (Auto) Eos # (Auto) Baso # (Auto) Immature Gran # (Auto) Absolute Nucleated RBC Immature Gran % Nucleated RBC % Smear Path Review Sodium Potassium Chloride Carbon Dioxide Anion Gap BUN Creatinine Estim Creat Clear Calc eGFR BUN/Creatinine Ratio Glucose Calculated Osmolality Calcium Corrected Calcium Phosphorus Magnesium Total Bilirubin AST ALT Alkaline Phosphatase Total Protein Albumin Globulin Albumin/Globulin Ratio Misc Test Result Blood Type Antibody Screen Crossmatch Blood Bank Wristband ID Blood Bank Comment Impressions Impression: Malignancy of GI tract or pancreatic biliary region Both upper endoscopy and colonoscopy shows no lesion except blood seen throughout the colon all the way up to the terminal ileum Refer the patient tertiary center for capsule endoscopy as well as further tissue diagnosis and management of the metastatic carcinoma Assessment & Plan A&P Narrative 1. 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 CA 19?9 alk phos considerably elevated, 2. To benefit from modern cancer therapy including immunotherapy or targeted therapy in this young patient who is motivated to get what ever treatment may benefit him, tissue diagnosis would be needed. 3. Iliac crest biopsy in patient with suspected bone mets was negative for malignancy. Upper endoscopy biopsies revealed no malignancy; lower endoscopy possible lesion causing bleeding noted. No specimen collected. 4. Small bowel series shows no lesions. Transfer to tertiary center for capsule endoscopy discussed as suggested by Dr. Watson. 5. Hospice option in light of the widespread mets involving bone and lung and likely small bowel discussed with hospice with members of hospital medical staff present. 6. Despite likely poor prognosis, family at this time appears to want to consider all options to further diagnose and eventually treat the cancer problem. Time Spent With Patient Time: Total time spent is greater than 50% in coordination of care (as documented) at patient's floor/unit and/or counseling patient:
--- NOTE | 2025-05-14 18:10 | EVENTNT_ITS ---
Documentation for date of: 05/14/25 Event Note Event Note: Goals of care discussion was had with family patient daughter, patient , patient, Dr. Schwartz, internal medicine team was present for conversation. The topic of the goals of care discussion was whether or not the family and miguel ent wanted to proceed with hospice care versus pursuing additional workup for the cancer. Dr. Schwartz and internal medicine team discussed with patient and patient family at length about their various options. Options discussed included hospice care. Family had questions about whether patient would be able to receive blood transfusions regularly in hospice, patient's family informed that blood products would likely not be able to be given in home hospice given risks and could be considered if the blood was needed for comfort. Patient has required blood transfusions daily while inpatient. Which gave family concerns about how long he would be able to stay at home without receiving blood products. Discussed with family that patient can come to the emergency department whenever, and that hospice care does not preclude them from changing their mind at any moment. Dr. Schwartz discussed with patient and patient family about the very low possibility that pursuing further workup of malignancy could result in a targeted therapy for his cancer. Dr. Schwartz discussed with family and patient the risks of chemotherapy and the reality that Mr. Everton Salinas is unlikely to be a candidate for chemotherapy at this moment because of his low hemoglobin levels and inherent toxicity of chemo. Decision was made by family to pursue hospice care Case discussed with my senior resident Dr. Segundo Case discussed with my attending Dr. Criselda Lester MD PGY-1
[2025-05-14] MEDS: HYDROmorphone INJ 2 MG/ML VIAL 1 MG IVP (21:01)
[2025-05-14] MEDS: guaiFENesin SYRUP 200 MG/10 ML UDC 100 MG PO (22:50)
[2025-05-15] VITALS (13 sets, daily range): BP systolic 108–120; BP diastolic 73–89; PULSE 95–112; RESP 15–22; TEMP 36.1–36.8; O2SAT 96–100
[2025-05-15] MEDS: HYDROmorphone INJ 2 MG/ML VIAL 1 MG IVP ×3 (01:23→12:16)
[2025-05-15] MEDS: LIDOCAINE 5% 1 PATCH TOP (01:23)
[2025-05-15 02:16] LABS: Basophils # (Auto) 0.1 Thou/mm3 (0.0-0.2); Basophils % (Auto) 1 % (0-2.5); Eosinophils # (Auto) 0.4 Thou/mm3 (0.0-0.5); Eosinophils % (Auto) 4 % (0-10); Hematocrit 25.9 % (41.0-53.0); Hemoglobin 9.1 g/dL (13.5-16.0); Immature Granulocytes Auto 0.99 Thou/mm3 (0.00-0.00); Lymphocytes # (Auto) 1.3 Thou/mm3 (1.0-4.8); Lymphocytes % (Auto) 16 % (10-50); Mean Corpuscular HGB Conc 35.1 g/dl (31.0-37.0); Mean Corpuscular Hemoglobin 28.5 pg (25.0-35.0); Mean Corpuscular Volume 81 fL (80-100); Monocytes # (Auto) 0.6 Thou/mm3 (0.0-0.8); Monocytes % (Auto) 8 % (0-12); Neutrophils # (Auto) 5.0 Thou/mm3 (1.8-7.7); Neutrophils % (Auto) 60 % (37-80); Nucleated Red Blood Cell # 0.75 Thou/mm3 (0.00-0.00); Nucleated Red Blood Cell % 9 /100 WBC (0); RDW Standard Deviation 47.1 fL (35.1-43.9); Red Blood Count 3.19 Miln/mm3 (4.50-5.90); White Blood Count 8.4 Thou/mm3 (3.8-10.6)
[2025-05-15 02:20] LABS: Platelet Count 61 Thou/mm3 (140-440)
[2025-05-15 03:09] LABS: Slide Review Platelets confirmed
[2025-05-15 06:10] LABS: Basophils # (Auto) 0.1 Thou/mm3 (0.0-0.2); Basophils % (Auto) 1 % (0-2.5); Eosinophils # (Auto) 0.4 Thou/mm3 (0.0-0.5); Eosinophils % (Auto) 4 % (0-10); Hematocrit 26.8 % (41.0-53.0); Hemoglobin 9.3 g/dL (13.5-16.0); Immature Granulocytes Auto 1.09 Thou/mm3 (0.00-0.00); Lymphocytes # (Auto) 1.6 Thou/mm3 (1.0-4.8); Lymphocytes % (Auto) 18 % (10-50); Mean Corpuscular HGB Conc 34.7 g/dl (31.0-37.0); Mean Corpuscular Hemoglobin 29.2 pg (25.0-35.0); Mean Corpuscular Volume 84 fL (80-100); Monocytes # (Auto) 0.6 Thou/mm3 (0.0-0.8); Monocytes % (Auto) 7 % (0-12); Neutrophils # (Auto) 5.1 Thou/mm3 (1.8-7.7); Neutrophils % (Auto) 57 % (37-80); Nucleated Red Blood Cell # 0.71 Thou/mm3 (0.00-0.00); Nucleated Red Blood Cell % 8 /100 WBC (0); RDW Standard Deviation 48.5 fL (35.1-43.9); Red Blood Count 3.19 Miln/mm3 (4.50-5.90); White Blood Count 8.9 Thou/mm3 (3.8-10.6)
[2025-05-15 06:20] LABS: Platelet Count 63 Thou/mm3 (140-440)
[2025-05-15 06:44] LABS: Alanine Aminotransferase 15 U/L (10-49); Albumin, Serum 3.1 gm/dL (3.5-5.0); Albumin/Globulin Ratio 1.3 (1.2-2.2); Alkaline Phosphatase 711 U/L (46-116); Anion Gap 8 (7-16); Aspartate Amino Transferase 22 U/L (0-34); BUN/Creatinine Ratio 30 Ratio (12-20); Bilirubin,Total 1.8 mg/dL (0.3-1.2); Blood Urea Nitrogen 12 mg/dL (9-23); Calcium 8.6 mg/dL (8.3-10.6); Calcium (Corrected) 9.3 mg/dL (8.5-10.1); Carbon Dioxide 28.5 mMol/L (20.0-31.0); Chloride 101 mMol/L (98-107); Creatinine (Component) 0.4 mg/dL (0.6-1.3); Estimated Creatinine Clearance 198.4 mL/min (>60); Globulin 2.3 gm/dL (2.3-3.5); Glucose 106 mg/dL (74-106); Osmolality,Calculated 273 (275-295); Potassium 4.6 mMol/L (3.4-5.1); Sodium 137 mMol/L (136-145); Total Protein 5.4 gm/dL (5.7-8.2); eGFR > 60 See Note
[2025-05-15 06:46] LABS: Slide Review Platelets confirmed
--- NOTE | 2025-05-15 07:37 | PD.RESDS ---
Planned Discharge Date 05/15/25 DS: Providers Provider Date of admission: 05/07/25 04:49 Primary care physician: Kenneth Baker PA-C Admitting Provider: Kenyetta Mohamud MD Attending Provider on Admission: Travis Aburto MD Consults: 05/08/25 10:37 Consult to Oncology Routine Comment: Consulting Provider: Bari Schwartz 05/08/25 10:39 Consult to Gastroenterology Routine Comment: Consulting Provider: Fer Watson 05/09/25 12:58 Consult to Pulmonology Routine Comment: loculated pleural effusions, possible empyema Consulting Provider: Madan Bonds I 05/14/25 13:25 Referral Hospice Routine Comment: Attending Provider on DC: Dr. Aburto Discharging Provider: Nilda Lester, DS: Diagnosis Problem List Completed Was Problem List Reviewed/Reconciled?: Yes Hospital Course Hospital Course Hospital course: Mr. 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 He was found to have empyema and right lung pneumonia and multiple acute drops in hemoglobin. Mr Garcia has undergone workup for his cancer, GI consulted (Dr. Watson), and Oncology consulted (Dr. Schwartz) with bone biopsy of Right hip (inconclusive), Chest CT with widespread metastatic osteoblastic disease, Brain MRI (no brain mets), EGD with 3 areas of biopsy in stomach (no metalasia,dysplasia, no hpylori organisms), colonoscopy which showed bleeding without clear source of bleeding nor clear location to biopsy. Small capsule biopsy at tertiary care facility was considered to evaluate the small bowel as the potential source of GI bleeding and cancer source. Pt has also been treated with vanc/cefeime 05/07-05/11 and then doxycicline 100mg BID 05/11-05/15 for PNA of the right lung with malignant empyema requiring 2x pleur evac drainage. Left thorocentesis was performed which removed 1.4 L. Pt has required PRBC transfusion nearly everyday of admission, likely 2/2 GI blood losses. Pt recieved total of 10 units PRBC, 2 units FFP, 3 units Platelets, Hgb at time of discharge was 9.3. Goals of care discussion was had with family, patient, Dr. Schwartz, and medicine team on 05/14. Pt explained his options of hospice given wide spread disease vs pursing further investigation and workup of the unidentified malignancy. Discussed the possibility of transfering pt to higher care facility for further workup, and that in the event that they were able to diagnose his cancer, Mr. Toscano may still not be stable enough to tolerate oncologic intervention with chemo, immunotherapy or radiation. Dr. Schwartz discussed with patient and family that his prognosis is poor from a cancer perspective and possibly shorter due to his acute needs for PRBC transfusions. Mr. Garcia elected to go home with hospice care. Pt informed that he can recieve blood transfusions in the ED if he is feeling symptomatic at home. Diagnoses #History of metastatic GI malignancy mets to bones, lung with pulmonary nodules #Elevated T. bili with elevated ALP likely related to malignancy #Multiple Acutes drop in hemoglobin requiring transfusion #Chronic normocytic anemia #Chronic thrombocytopenia #Acute respiratory distress likely secondary to #Right-sided malignant effusion, and possible community-acquired pneumonia #Left-sided pleural effusion #Community acquired PNA Discharge plan You are being sent home with hospice. Please take medications as needed for comfort, as directed by hospice. Case discussed with my senior resident Dr. Segundo Case discussed with my attending Dr. Criselda Lester MD PGY-1 Status at Discharge Cognitive/behavioral status at discharge: poor Overall status at discharge: patient is not back to baseline Time Spent with Patient Time attestation: Total time spent providing and/or coordinating discharge services: Time spent: Greater than 30 minutes Quality: Stroke Pt Provided Written Stroke Discharge Instructions: No (STROKE S/S) Exam Vital Signs Temp Pulse Resp BP Pulse Ox O2 Del Method O2 Flow Rate 97.4 F 105 H 21 H 114/84 98 Nasal Cannula 2 05/15/25 04:00 05/15/25 04:00 05/15/25 04:00 05/15/25 04:00 05/15/25 04:00 05/15/25 04:00 05/15/25 04:00 Narrative Exam GENERAL APPEARANCE: Patient is AO x 3,pale. lean body habitis in no acute distress. Pt sitting up in bed HEENT: NC, AT. MMM. EOMI, NECK: No stiffness or restricted ROM. Port A cath clean and dry. HEART: Sinus tachycardia with regular rhythm, normal S1/S2, no m/r/g LUNGS: on 2L NC, pt breathing without accessory muscles, PleurX catheter on right side. ABDOMEN: Soft, nontender, nondistended with bowel sounds heard. BACK: No CVAT, no obvious deformity. EXTREMITIES: Without cyanosis, clubbing or edema. NEUROLOGICAL: Grossly nonfocal. Alert and oriented, moving all 4 extremities. CN not formally tested but appear grossly intact. Skin: Warm and dry without any rash. Psych: Patient appears depressed mood low affect Discharge Plan Plan Patient Disposition: Home w/HOSPICE Care Plan Goals: You are being sent home with hospice. Please take medications as needed for comfort, as directed by hospice. Prescriptions/Referrals Prescriptions/Med Rec: Discontinued tramadol 50 mg tablet 50 mg PO Q6H PRN (Reason: pain) Qty: 30 0RF acetaminophen [8 Hour Pain Reliever] 650 mg tablet extended release 650 mg PO Q8H PRN (Reason: pain) Referrals: Kenneth Baker PA-C [Primary Care Provider] - Patient/Caregiver Discharge Instructions Discharge Activity: activity as tolerated Education Materials: Hospice The Importance of ..., Hospice Dyspnea Care, Hospice: As Nears, For Caregivers: Coping Tips Print Language: Colombian Stand Alone Forms: Jerica Award Info., Patient Portal Info Letter Discharge Order Discharge Orders: Discharge (Routine); Ordered 05/15/25 Ordered By: Omid Segundo Quality Discharge Quality Measures comfort care/end of life MD Attestestation MD Attestation I attest that I was physically present for the evaluation, physical examination, lab and imaging review of the patient with the residents. I discussed the case with the residents and agree with the findings and plans of care as documented above. Held on the family meeting today at bedside along with internal medicine team and case management. Explained in detail again about his workup, requirement of further invasive workup to diagnose the type of cancer. Explained in detail about prognosis and management options including aggressive management with transfer to higher center, also explained option of comfort focused treatment on hospice care. Patient and family verbalized understanding of the situation. Patient wished to go home and pursue comfort focused treatment. We will discharge patient on hospice care. Travis Aburto MD
[2025-05-15] MEDS: DOXYCYCLINE INJ 100 MG in SODIUM CHLORIDE 0.9% (POP) 100 ML IV (08:10)
[2025-05-15] MEDS: HYDROcodone/APAP 5/325 TABLET 1 TAB PO (08:10)
[2025-05-15] MEDS: DICLOFENAC 1% TOP GEL 100 GM TUBE TOP (09:51)
--- NOTE | 2025-05-15 10:18 | PC.SS ---
Addendum entered by Alisha Estrada 05/15/25 15:17: GUERDA contacted [facility] to schedule transportation, reference number: [id number]. GUERDA scheduled transportation for 1800. Addendum entered by Alisha Estrada 05/15/25 13:43: Biometrics Experimentalist (GUERDA) Alisha met with patient and his family, including his adult children and , to discuss family meeting with Dr. Aburto and [facility] Residents Dr. Segundo and Dr. Lester. GUERDA utilized cloak room attendant services (ID number: [id number]). Patient appeared alert and oriented to self, place and situation. Dr. Aburto explained all findings from radiology, prognosis and possible treatment based on Dr. Schwartz's recommendations. Patient and family had an opportunity to ask questions about treatment plan: home with hospice vs. HLOC. Patient decided to return home with hospice services. GUERDA contacted [facility] and spoke to Smiley. GUERDA will schedule transportation. Original Note: Biometrics Experimentalist (GUERDA) Alisha met with patient and his , Jailene. GUERDA introduced self, role and reason for visit. GUERDA clarified that patient was a possible discharge home with [facility]. Jailene reported that she had several questions regarding medical condition, prognosis, and a second opinion for possible treatment. GUERDA updated Dr. Aburto and family meeting has been scheduled for 1200.
[2025-05-15] MEDS: HYDROmorphone INJ 2 MG/ML VIAL IVP ×3 (12:15→19:17)
--- NOTE | 2025-05-15 18:04 | PD.IMPROG ---
Documentation for date of: 05/15/25 Subjective Subjective Interval history: Patient evaluated hemoglobin medic at 9.1 and 27 Patient most likely has a small bowel bleed family wants everything done Exam Vital Signs Temp Pulse Resp BP Pulse Ox O2 Del Method O2 Flow Rate 97.4 F 102 H 19 120/81 97 Nasal Cannula 2 05/15/25 16:00 05/15/25 16:00 05/15/25 16:00 05/15/25 16:00 05/15/25 16:00 05/15/25 16:00 05/15/25 16:00 Objective Labs 05/15/25 05:11 05/15/25 05:11 Labs: Laboratory Results - last 24 hr 05/13/25 05/15/25 05/15/25 18:51 02:02 05:11 WBC 8.4 8.9 RBC 3.19 L 3.19 L Hgb 9.1 L D 9.3 L Hct 25.9 L 26.8 L MCV 81 84 MCH 28.5 29.2 MCHC 35.1 34.7 RDW Std Deviation 47.1 H 48.5 H Plt Count 61 L D 63 L Neut % (Auto) 60 57 Lymph % (Auto) 16 18 [place] % (Auto) 8 7 Eos % (Auto) 4 4 Baso % (Auto) 1 1 Neut # (Auto) 5.0 5.1 Lymph # (Auto) 1.3 1.6 [place] # (Auto) 0.6 0.6 Eos # (Auto) 0.4 0.4 Baso # (Auto) 0.1 0.1 Immature Gran # (Auto) 0.99 H 1.09 H Absolute Nucleated RBC 0.75 H 0.71 H Immature Gran % 12 H 12 H Nucleated RBC % 9 H 8 H Sodium 137 Potassium 4.6 D Chloride 101 Carbon Dioxide 28.5 Anion Gap 8 BUN 12 Creatinine 0.4 L Estim Creat Clear Calc 198.4 eGFR > 60 BUN/Creatinine Ratio 30 H Glucose 106 Calculated Osmolality 273 L Calcium 8.6 Corrected Calcium 9.3 Total Bilirubin 1.8 H AST 22 ALT 15 Alkaline Phosphatase 711 H D Total Protein 5.4 L Albumin 3.1 L Globulin 2.3 Albumin/Globulin Ratio 1.3 Misc Test Result Platelets confirmed Platelets confirmed Blood Type A Positive Antibody Screen NEGATIVE Crossmatch See Detail Blood Bank Wristband ID Yes Blood Bank Comment FFP Ready Impressions Impression: Metastatic malignancy in the lower GI tract region which is being worked up by his negative or pancreatic biliary region Family wants everything done Tertiary center referral to a facility where patient can have capsule endoscopy and further evaluation Assessment & Plan A&P Narrative 1. 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 CA 19?9 alk phos considerably elevated, 2. To benefit from modern cancer therapy including immunotherapy or targeted therapy in this young patient who is motivated to get what ever treatment may benefit him, tissue diagnosis would be needed. 3. Iliac crest biopsy in patient with suspected bone mets was negative for malignancy. Upper endoscopy biopsies revealed no malignancy; lower endoscopy possible lesion causing bleeding noted. No specimen collected. 4. Small bowel series shows no lesions. Transfer to tertiary center for capsule endoscopy discussed as suggested by Dr. Watson. 5. Hospice option in light of the widespread mets involving bone and lung and likely small bowel discussed with hospice with members of hospital medical staff present. 6. Despite likely poor prognosis, family at this time appears to want to consider all options to further diagnose and eventually treat the cancer problem. Time Spent With Patient Time: Total time spent is greater than 50% in coordination of care (as documented) at patient's floor/unit and/or counseling patient:
--- NOTE | 2025-05-15 19:44 | PC.NURSE ---
Ambulance arrived on unit to pick up operator patient to transfer patient from hospital to home. IV were removed and all belonging were accounted for with the family and patient. Patient is able to ambulate from the bed to the ambulance stretcher. Discharge packet also given to patient and his family.
== END 2025-05-15 19:44 | disposition hospice, home (50) | DRG 137 ==
LOC: SERX 05:02 → SERHOLD 05:09 → S2NX 15:20
PROVIDERS: Internal Medicine; Specialist; Student in an Organized Health Care Education/Training Program; Admitting Provider Student in an Organized Health Care Education/Training Program; Emergency Provider Student in an Organized Health Care Education/Training Program; PCP Physician Assistant; Visit Provider Student in an Organized Health Care Education/Training Program
PROC: (CPT 43239; principal; 2025-05-10 18:30)
PROC: 0DJD8ZZ Inspection of Lower Intestinal Tract, Via Natural or Artificial Opening Endoscopic (ICD-10-PCS; CPT 45378; principal; 2025-05-11 19:00)
DX: J86.9 Pyothorax without fistula (principal); C79.51 Secondary malignant neoplasm of bone; C78.00 Secondary malignant neoplasm of unspecified lung; J18.9 Pneumonia, unspecified organism; C26.9 Malignant neoplasm of ill-defined sites within the digestive system; D69.6 Thrombocytopenia, unspecified; D64.89 Other specified anemias; K29.70 Gastritis, unspecified, without bleeding; Y95 Nosocomial condition; Z51.5 Encounter for palliative care; J91.0 Malignant pleural effusion; Z87.01 Personal history of pneumonia (recurrent); Z88.0 Allergy status to penicillin
CPT/HCPCS: 36415; 36430; 70552; 71046; 71250; 73020; 74018; 74250; 80053; 80202; 80307; 81001; 82150; 82248; 82270; 82607; 82746; 82945; 83540; 83550; 83605; 83615; 83735; 83880; 83986; 84100; 84157; 84315; 84484; 85014; 85018; 85025; 85046; 85384; 85610; 85730; 86850; 86880; 86900; 86901; 86923; 86927; 86965; 87040; 87070; 87081; 87205; 87400; 87811; 89051; 93005; 94762; 96365; 96366; 96367; 96368; 96375; 96376; 99285; A9579; J0692; J1171; J1200; J2250; J2270; J2405; J2470; J3010; J3373; J3475; J3490; J7050; J7120; P9016; P9035; P9060; Q9963; S8037; 74181; A9270

== ENCOUNTER 2025-05-17 18:59 | Emergency (ER) | payer MEDICAID, SELFPAY ==
--- NOTE | 2025-05-17 19:13 | PD.EDRECHK ---
ED Recheck Abnl Lab Rx-RME/HPI General Chief Complaint: Recheck/Abnormal Lab/Rx Stated Complaint: Hospice care, may need blood Time Seen by Provider: 05/17/25 19:12 Arrival date/time: 05/17/25 18:59 RME / HPI RME / HPI narrative: DR. LAYNE AMEZCUA ED EVALUATION: 49 y/o male with Hx of terminal Lung CA and Anemia presents to ED c/o abnormal hemoglobin levels x 1 day. Patient was advised by [facility] to F/U in ED for hemoglobin check and possible blood transfusion. Denies any fever. Related Data Allergies Allergy/AdvReac Type Severity Reaction Status Date / Time Penicillins Allergy Intermediate RASH Verified 05/17/25 19:05 Review of Systems Review of Systems Systems Reviewed: All systems reviewed, normal except as documented Past Medical History Past Medical History RESPIRATORY: Positive Pneumonia MUSCULOSKELETAL: Positive Musculoskeletal Disorders HEMATOLOGIC: Positive Anemia PSYCHO/SOCIAL: Positive Depression OTHER HISTORY: Positive Blood Transfusions, Chemotherapy, Cancer and Lung Cancer ED Exam Narrative Physical exam: GENERAL APPEARANCE: alert and oriented x 4, well-developed, well-nourished, no acute distress VITALS: All vitals were reviewed and the pulse ox is 95% on room air, which is normal according to my interpretation. HEENT: Normocephalic, atraumatic; pupils equal, round, reactive to light; EOMI; mucous membranes pink, moist; oropharynx clear NECK: Supple LUNGS: CTABL; no wheezes, no rales, no rhonchi HEART: Regular rate, regular rhythm; normal S1, S2; no murmurs ABDOMEN: non distended; normal BS; soft, no tenderness, no guarding, no rebound; no masses, no organomegaly, no hernia BACK: no CVA tenderness EXTREMITIES: atraumatic; no edema NEUROLOGIC: awake; alert and oriented x4; cranial nerves II-XII grossly intact; no focal sensory or motor deficits PSYCHIATRIC: appropriate mood and affect SKIN: warm, dry, normal color; no rashes Course Quality Measures Current suspected stage: sepsis Possible source: unknown Blood cultures ordered: yes Antibiotic ordered: No Pertinent labs: 05/17/25 20:52 Lactic Acid 1.0 mMol/L (0.4-2.0) Procalcitonin 0.50 H ng/ml (0.0-0.49) sepsis and comfort care/end of life Orders Category Date Time Status EKG (ED ONLY) *Do not use* NOW Care 05/17/25 20:12 Completed Transfuse,blood/blood products NOW Care 05/17/25 20:32 Active EKG (ED Only) Stat Exams 05/17/25 20:12 Ordered Blood Culture (Lab) Stat Lab 05/17/25 20:56 Received CBC Stat Lab 05/17/25 19:29 Completed CMP [Comprehensive Metabolic Panel] Stat Lab 05/17/25 20:52 Completed Lactate (Lactic Acid) Stat Lab 05/17/25 20:52 Completed Procalcitonin Stat Lab 05/17/25 20:52 Completed Red Blood Cells Stat Lab 05/17/25 19:29 Results Type and Screen Stat Lab 05/17/25 19:29 Results Urinalysis Stat Lab 05/17/25 23:43 Completed Urine Culture Stat Lab 05/17/25 23:43 Received HYDROmorphone INJ [Dilaudid Inj] Med 05/17/25 20:34 Discontinued 1 mg IVP X1 ONE HYDROmorphone INJ [Dilaudid Inj] Med 05/18/25 00:46 Discontinued 1 mg IVP X1 ONE Ondansetron Inj [Zofran Inj] Med 05/17/25 20:34 Discontinued 4 mg IVP X1 ONE Vital Signs Vital signs: Vital Signs Temperature 98.3 F 05/17/25 20:36 Pulse Rate 133 H 05/17/25 20:36 Respiratory Rate 21 H 05/17/25 20:36 Blood Pressure 113/79 05/17/25 20:36 Pulse Oximetry (%) 98 05/17/25 20:36 Oxygen Delivery Method Nasal Cannula 05/17/25 20:36 Oxygen Flow Rate 3 05/17/25 20:36 Recheck / Abnormal Lab / Rx MDM Narrative MDM Narrative:: Scribe Attestation: IKristin, kat scribing for and in the presence of Dr. Singh. Provider Notation: Although this document has been carefully reviewed, there may still be some phonetic and other typographical errors.? These errors are purely grammatical due to imperfections in the software program and should not be construed in any way to? compromise the substance of the patient's medical care during this visit. Patient data External records reviewed:: [facility] previous records (Reviewed prior ED records from 04/30/25. Patient was seen for Anemia.) Clinical information provided by:: patient Social determinants that could affect healthcare access:: none Patient has the following chronic illnesses:: Anemia, Depression, Lung CA How is presenting disease/condition affected by chronic disease/condition?: exacerbated by Evaluation data The following diagnostics were reviewed and interpreted by me:: lab results and EKG tracing(s) (EKG manual reading, my interpretation: sinus tachycardia, rate: 132 bpm, no ST elevation, no acute ischemic changes, interpreted as normal.) Lab and/or radiology exams considered but not ordered:: None Interpretation Summary: LABS Hematology: Hgb 6.2, Hct 17.5%. Medications / Prescriptions Medications or Prescriptions considered but not ordered:: None Medication administrations:: Medication Administration History Discontinued Medications Hydromorphone HCl (Hydromorphone Inj 2 Mg/Ml Vial) 1 mg IVP X1 ONE Stop: 05/17/25 20:35 Last Admin: 05/17/25 20:58 Dose: 1 mg Documented By: NICO Hydromorphone HCl (Hydromorphone Inj 2 Mg/Ml Vial) 1 mg IVP X1 ONE Stop: 05/18/25 00:47 Last Admin: 05/18/25 01:06 Dose: 1 mg Documented By: NICO Ondansetron HCl (Ondansetron Inj 2 Mg/Ml Inj 2 Ml) 4 mg IVP X1 ONE Stop: 05/17/25 20:35 Last Admin: 05/17/25 20:58 Dose: 4 mg Documented By: NICO See above Consultations Consultation(s) initiated? (list below): No Diagnosis Recheck Differential Diagnosis: warfarin-induced coagulopathy and other (JEEVAN, Dehydration, Metabolic abnormality, Sepsis, Severe Sepsis.) Most likely diagnosis given after review of the tests above:: Symptomatic anemia, Blood transfusion during current hospitalization Admission Indicated Admission indicated?: not indicated Explain why admission is indicated or not indicated:: Patient does not meet admission criteria. Admission Request Was there a request for admission?: No Disposition Plan Disposition Plan: Discharge Discharge Attestation Discharge Attestation: The patient and all family members were given an opportunity to ask questions and understood the discharge instructions. Discharge instructions specifically effects, indications for sooner follow up or return to the emergency department, and the expected course of current diagnosis. Patient condition: Stable Discharge Plan Plan Patient Disposition: HOME (Self Care) Prescriptions/Referrals Referrals: ALANA MONAHAN [Other] - In 1 week Problem List Clinical Impression: Symptomatic anemia, Blood transfusion during current hospitalization Patient/Caregiver Discharge Instructions Education Materials: Anemia, Anemia During Cancer Print Language: Latvian Stand Alone Forms: Jerica Award Info., Patient Portal Info Letter
[2025-05-17 19:44] LABS: Basophils # (Auto) 0.1 Thou/mm3 (0.0-0.2); Basophils % (Auto) 1 % (0-2.5); Eosinophils # (Auto) 0.2 Thou/mm3 (0.0-0.5); Eosinophils % (Auto) 2 % (0-10); Immature Granulocytes Auto 1.16 Thou/mm3 (0.00-0.00); Lymphocytes # (Auto) 2.9 Thou/mm3 (1.0-4.8); Lymphocytes % (Auto) 25 % (10-50); Mean Corpuscular HGB Conc 35.4 g/dl (31.0-37.0); Mean Corpuscular Hemoglobin 29.5 pg (25.0-35.0); Mean Corpuscular Volume 83 fL (80-100); Monocytes # (Auto) 1.1 Thou/mm3 (0.0-0.8); Monocytes % (Auto) 9 % (0-12); Neutrophils # (Auto) 6.3 Thou/mm3 (1.8-7.7); Neutrophils % (Auto) 54 % (37-80); Nucleated Red Blood Cell # 2.19 Thou/mm3 (0.00-0.00); Nucleated Red Blood Cell % 19 /100 WBC (0); RDW Standard Deviation 51.3 fL (35.1-43.9); Red Blood Count 2.10 Miln/mm3 (4.50-5.90); White Blood Count 11.8 Thou/mm3 (3.8-10.6)
[2025-05-17 19:55] LABS: Hematocrit 17.5 % (41.0-53.0); Hemoglobin 6.2 g/dL (13.5-16.0); Platelet Count 39 Thou/mm3 (140-440)
[2025-05-17 20:07] LABS: Slide Review Platelets confirmed
[2025-05-17 20:12] VITALS: BMI 21.8
[2025-05-17 20:36] VITALS: BP 113/79; PULSE 133; RESP 21; TEMP 36.8; O2SAT 98
[2025-05-17] MEDS: ONDANSETRON INJ 2 MG/ML INJ 2 ML 4 MG IVP (20:58)
[2025-05-17] MEDS: HYDROmorphone INJ 2 MG/ML VIAL 1 MG IVP (20:58)
[2025-05-17 21:10] LABS: Lactate (Lactic Acid) 1.0 mMol/L (0.4-2.0)
[2025-05-17 21:43] LABS: Alanine Aminotransferase 14 U/L (10-49); Albumin, Serum 3.1 gm/dL (3.5-5.0); Albumin/Globulin Ratio 1.3 (1.2-2.2); Alkaline Phosphatase 806 U/L (46-116); Anion Gap 9 (7-16); Aspartate Amino Transferase 22 U/L (0-34); BUN/Creatinine Ratio 28 Ratio (12-20); Bilirubin,Total 3.8 mg/dL (0.3-1.2); Blood Urea Nitrogen 17 mg/dL (9-23); Calcium 8.3 mg/dL (8.3-10.6); Calcium (Corrected) 9.0 mg/dL (8.5-10.1); Carbon Dioxide 26.3 mMol/L (20.0-31.0); Chloride 96 mMol/L (98-107); Creatinine (Component) 0.6 mg/dL (0.6-1.3); Estimated Creatinine Clearance 127.9 mL/min (>60); Globulin 2.3 gm/dL (2.3-3.5); Glucose 117 mg/dL (74-106); Osmolality,Calculated 265 (275-295); Potassium 4.5 mMol/L (3.4-5.1); Procalcitonin 0.50 ng/ml (0.0-0.49); Sodium 131 mMol/L (136-145); Total Protein 5.4 gm/dL (5.7-8.2); eGFR > 60 See Note
[2025-05-17 22:10] VITALS: BP 112/80; PULSE 128; RESP 23; TEMP 36.5; O2SAT 95
[2025-05-17 22:29] VITALS: BP 107/77; PULSE 127; RESP 22; TEMP 37.6; O2SAT 95
[2025-05-17 22:44] VITALS: BP 120/76; PULSE 120; RESP 21; TEMP 36.9; O2SAT 95
[2025-05-17 23:48] LABS: Collection Type, Urine Clean Catch; Squamous Epithelial Cell,Urine 0 /hpf (0-5)
[2025-05-18] VITALS (12 sets, daily range): BP systolic 103–125; BP diastolic 64–82; PULSE 108–127; RESP 17–22; TEMP 36.8–37.3; O2SAT 93–98
[2025-05-18 00:07] LABS: Amorphous Crystals,Urine Present (Absent); Bacteria,Urine 1+; Bilirubin,Urine Negative (Negative); Blood,Urine Negative (Negative); Clarity,Urine Turbid (Clear/Hazy); Color,Urine Yellow (Lt Yel-Yel); Glucose, Urine Negative (Negative); Ketones,Urine Negative (Negative); Leukocyte Esterase,Urine Negative (Negative); Nitrite,Urine Negative (Negative); PH,Urine 6.0 (5.0-7.0); Protein,Urine Negative (Neg - Trace); RBC,Urine 5 /hpf (0-3); Specific Gravity,Urine 1.008 (1.001-1.035); Urobilinogen,Urine Negative mg/dL (0.0-1.0); WBC,Urine 2 /hpf (0-5)
[2025-05-18] MEDS: HYDROmorphone INJ 2 MG/ML VIAL 1 MG IVP ×2 (01:06→06:36)
== END 2025-05-18 07:52 | disposition home or self-care (01) ==
PROVIDERS: Physician Assistant Medical; Emergency Provider Emergency Medicine
DX: D64.9 Anemia, unspecified (principal)
CPT/HCPCS: 36415; 36430; 80053; 81001; 83605; 84145; 85025; 86850; 86900; 86901; 86923; 87040; 87086; 93005; 96374; 96375; 96376; 99284; J1171; J2405; P9016

== ENCOUNTER 2025-05-25 13:22 | Inpatient (IN) | payer MEDICAID, SELFPAY ==
[2025-05-25] VITALS (49 sets, daily range): BP systolic 90–127; BP diastolic 57–82; PULSE 113–137; RESP 16–32; TEMP 36.4–37.7; O2SAT 90–98; BMI 23.3
--- NOTE | 2025-05-25 14:25 | PD.EDADULT ---
ED General RME/HPI General Chief complaint: Recheck/Abnormal Lab/Rx Stated complaint: Hemoglobin is low, tired weak on Hospice Time Seen by Provider: 05/25/25 14:24 Arrival date/time: 05/25/25 13:22 RME / HPI RME / HPI narrative: Patient 49-year-old with history of metastatic GI cancer, mets to bones and lungs, pulmonary nodules, anemia requiring blood transfusion presents to the ED for worsening weakness and feels he might need a transfusion. He has been recently on hospice care and Dr. Schwartz has been their oncologist. Despite being on hospice they want to go back and intervene and try to make him feel better. They also report he has black stools he has had some workup in the past but the details of that were unclear to them. They also wonder what they should do as he is getting much sicker in the last couple days. They deny any fever there is no vomiting his appetite is poor. Related Data Allergies Allergy/AdvReac Type Severity Reaction Status Date / Time Penicillins Allergy Intermediate RASH Verified 05/25/25 13:29 Review of Systems Review of Systems Narrative Review of Systems: Review of Systems: Constitutional: DENIES: Fevers,; Eyes: DENIES: Loss of vision, Head/Ear/Nose: DENIES: Loss of hearing. Throat: Denies dysphagia. Cardiovascular: Denies chest pain, Dyspnea or syncope. Respiratory: DENIES: Shortness of breath, Gastrointestinal: Has melena see HPI Genitourinary: DENIES: Dysuria (painful or difficult urination),; Musculoskeletal: DENIES: Arthralgia (pain in a joint),; Skin: DENIES: Rash,; Neurological: DENIES: loss of function or movement,; Psychiatric: DENIES: recent major life stressor, emotional problem, illicit drug use or abuse,; Endocrinology: Losing weight see HPI Hematologic/Lymphatic: DENIES: Abnormal bruising. Allergic/Immunologic: DENIES: Urticaria (hives), Past Medical History Past Medical History RESPIRATORY: Positive Pneumonia MUSCULOSKELETAL: Positive Musculoskeletal Disorders HEMATOLOGIC: Positive Anemia PSYCHO/SOCIAL: Positive Depression OTHER HISTORY: Positive Blood Transfusions, Chemotherapy, Cancer and Lung Cancer Surgical History SURGICAL: Negative Cardiac Surgery, Endocrine Surgery, Abdominal Surgery, Joint Replacement or Vasectomy Social History SMOKING STATUS: Never smoker SUBSTANCE USE: does not use ED Exam Narrative Physical exam: Physical Exam: General: The vital signs were reviewed. Patient is hypotensive tachycardic he looks extremely pale and weak the patient is non-toxic, in no apparent distress and appears healthy with a patent airway, no respiratory distress and has no apparent circulatory problems. Head & Scalp: Normocephalic, atraumatic. Face: Appears normal and is without lesions, deformity. Ears: Left external pinna appears normal. Right external pinna appears normal. Eyes: Pale conjunctiva the sclera is anicteric. No obvious photophobia. The Left and Right Orbit/Lid/Conjunctiva appears normal without swelling, discoloration or injection. Nose: The nose is without deformity, discharge or tenderness; Throat: Appears normal. The mucous membranes are pink and moist without exudates, redness or mass seen. The tongue appears normal. Neck: The neck is supple and no apparent mass or adenopathy. Chest: The chest wall is normal in size and symmetry and has no chest wall tenderness or crepitus. The patient displays normal ventilator effort without retractions, accessory muscle use and has adequate air movement bilaterally with no wheezes and no rales. Cardiovascular: Regular rate and rhythm; No murmurs, rubs, or gallops; Gastrointestinal: The abdomen appears normal. No obvious hernias or mass. The abdomen is soft and benign, non-distended, with no pain, no guarding and no rebound tenderness. Bowel sounds are present and normal sounding. No CVA tenderness. Genitourinary: Rectal exam reveals dark brown-black stool strongly guaiac positive. No rectal mass was palpated. Back/Spine: Thin Extremities/Musculoskeletal/lymphatic: The bilateral upper and lower extremities are warm. There is no evidence of arterial insufficiency. There is no evidence of venous insufficiency/edema. The patient spontaneously moves bilateral upper and lower extremities with no pain and no limitation of movement. There is no apparent, injury or trauma. Skin: The skin is warm, dry and intact. No rashes. No petechia. No purpura. No abnormal bruising. The color is appropriate with no cyanosis. Mental status/Psychiatric: Mental status is appropriate for age. The patient has no apparent delusions, visual hallucinations, no apparent audible hallucinations. The patient has no apparent suicidal thoughts/ideation and no apparent homicidal thoughts/ideation. Neurological: The patient is awake, alert, interactive, cordial, cooperative and is oriented to name and situation. The patient follows commands and answers historical question with no impairment. There is no visual disturbance apparent. The pupils are equal and reactive bilaterally with normal eye movements and no diplopia The bilateral upper and lower extremities have normal strength, normal range of motion and normal functioning. The gait, station and balance not tested due to acuity Course Quality Measures comfort care/end of life (Patient initially is hospice care but now wants more treatment therefore be admitted because he is sick to go to the ICU.) Orders Category Date Time Status Admit to Inpatient Status Routine Admission 05/25/25 17:38 Active Patient Condition Routine Admission 05/25/25 17:38 Ordered Bedrest QS Care 05/25/25 17:37 Active Porter Baggage NOW Care 05/25/25 13:57 Active Continuous Pulse Oximetry QSHIFT Care 05/25/25 17:37 Active IV [Insert IV] NOW Care 05/25/25 17:07 Active Insert IV NOW Care 05/25/25 13:57 Active NPO NOW Care 05/25/25 17:41 Active Notify provider NEEDED Care 05/25/25 17:38 Active Strict Intake and Output Routine Care 05/25/25 17:40 Ordered Transfuse,blood/blood products NOW Care 05/25/25 16:19 Active Consult to Gastroenterology Stat Cons 05/25/25 16:30 Ordered Diet NPO (NOW) Diet 05/25/25 17:41 Active CBC Stat Lab 05/25/25 14:29 Completed Comprehensive Metabolic Panel Stat Lab 05/25/25 14:29 Completed Fresh Frozen Plasma Stat Lab 05/25/25 14:29 Results PLATELETS [Pheresis Platelets] Stat Lab 05/25/25 14:29 Results Partial Thromboplastin Time Stat Lab 05/25/25 14:29 Completed Prothrombin Time with INR Stat Lab 05/25/25 14:29 Completed Red Blood Cells Stat Lab 05/25/25 14:29 Results Type and Screen Stat Lab 05/25/25 14:29 Results Morphine Inj Med 05/25/25 17:37 Discontinued 2 mg IVP X1 ONE Pantoprazole Inj [Protonix Inj] Med 05/25/25 16:29 Discontinued 40 mg IVP X1 ONE Pantoprazole Inj [Protonix Inj] Med 05/25/25 17:08 Discontinued 80 mg IVP X1 ONE Code Status Routine Oth 05/25/25 17:37 Ordered Oxygen Delivery PRN RT 05/25/25 17:41 Active Vital Signs Vital signs: Vital Signs Temperature 97.5 F 05/25/25 13:50 Pulse Rate 137 H 05/25/25 13:50 Respiratory Rate 18 05/25/25 13:50 Blood Pressure 90/57 L 05/25/25 13:50 Pulse Oximetry (%) 95 05/25/25 13:50 Oxygen Delivery Method Room Air 05/25/25 13:50 Pulse ox is 95% on room air which is adequate. Critical Care Time Critical Care Time Critical Care Time: Yes Total Critical Care Time (min.): 60 Attestation: The high probability of sudden, clinically significant deterioration in the patient's condition required the highest level of my preparedness to intervene urgently. The services I provided to this patient were to treat and/or prevent clinically significant deterioration. Services included the following: chart data review, reviewing nursing notes and/or old charts, documentation time, revenue cycle consultant collaboration regarding findings and treatment options, medication orders and management, direct patient care, vital sign assessments and ordering, interpreting and reviewing diagnostic studies and lab tests. Aggregate critical care time includes only time during which I was engaged in work directly related to the patient's care, as described above, whether at bedside or elsewhere in the Emergency Department. It did not include time spent performing other reported procedures or the services of residents, students, nurses or physician assistants. Discharge Plan Plan Patient Disposition: Admit Acute Care w/in Hospital Problem List Clinical Impression: Severe anemia, Weakness, Lung cancer, Acute hypotension, Melena, Tachycardia Impression comment: Patient has end-of-life issues who wants to be transfused and evidently needs capsule endoscopy per previous workup but patient is too sick to be transferred at this time. MDM Narrative [facility] hospital course: Patient presents emergency room with weakness hypotensive tachycardia black stools with a history of terminal lung cancer per the and states they came in because he is weak and they want to give him a blood transfusion. He has not hospice care and evidently wants to come out of hospice so he can get his strength back. We had a very very long discussion 30 minutes with [place] interpreters but several times trying to understand what they understand and see what they want and at this time the short discussion is they want to proceed with blood transfusions. Because he is tachycardic hypotensive melanotic and severe anemia he will need to go to the ICU to get blood. Dr. Watson who knows this patient already had recommended capsule endoscopy because they did not find a source on previous workups. Laboratory studies show a hemoglobin of 4.7 hematocrit of 14.3 white count 11.6 PT/INR is 16.81.6 INR and PTT is 37.7. Sodium 137 potassium 4.2 chloride 100 CO2 27.5 BUN 12 creatinine 0.6 total bilirubin slightly elevated 1.8. Alk phos is elevated 1050. Urinalysis is pending at this time. Critical care was contacted I spoke with Dr. acevedo critical care on-call and he will send the residents down to admit the patient. Patient is too sick to be transferred at this time and further discussions of end-of-life. Consult for Dr. Watson was placed by his recommendation after speaking with him. Clinical Information Provided by patient and spouse ( adds to hpi) Medical Records Reviewed [facility] I reviewed ED visit on 05/17/2025 Meds/Rx Considered, not Ordered None Labs/Rad/Tests considered, not Ordered None Chronic Illness/Social Conditions which may negatively complicate care or outcome(s)-explain: None or not applicable EKG EKG not done Lab Interpretation Labs: see narrative above Imaging Imaging interpretation: none Medication Administration(s) Medication Administration History Acetaminophen (Acetaminophen 325 Mg Tablet) 650 mg PO Q6H PRN PRN Reason: Fever >101.5 Stop: 06/24/25 17:41 Acetaminophen (Acetaminophen 325 Mg Tablet) 650 mg PO Q6H PRN PRN Reason: PAIN SCALE 1-3 (mild Stop: 06/24/25 17:41 Hydrocodone Bitart/Acetaminophen (Hydrocodone/Apap 10/325 Tab) 1 tab PO Q4H PRN PRN Reason: PAIN SCALE 4-6 (Moderate Stop: 05/30/25 17:41 Morphine Sulfate (Morphine Sulf Inj 10 Mg/Ml Vial) 2 mg IVP Q2H PRN PRN Reason: PAIN SCALE 7-10 (Severe Stop: 05/30/25 17:41 Ondansetron HCl (Ondansetron Inj 2 Mg/Ml Inj 2 Ml) 4 mg IVP Q6H PRN; Protocol PRN Reason: NAUSEA OR VOMITING Stop: 06/24/25 17:41 Pantoprazole Sodium (Pantoprazole Inj 40 Mg Vial) 40 mg IVP Q12HR JUAN JOSE Stop: 08/21/25 20:59 Discontinued Medications Morphine Sulfate (Morphine Sulf Inj 10 Mg/Ml Vial) 2 mg IVP X1 ONE Stop: 05/25/25 17:38 Pantoprazole Sodium (Pantoprazole Inj 40 Mg Vial) 40 mg IVP X1 ONE Stop: 05/25/25 16:30 Pantoprazole Sodium (Pantoprazole Inj 40 Mg Vial) 80 mg IVP X1 ONE Stop: 05/25/25 17:09 Phytonadione (Phytonadione Inj 10 Mg/Ml Amp) 10 mg SC X1 ONE Stop: 05/25/25 18:02 See above Consultations/Discussions re: Management Consult #1: Date/time: 05/25/25 16:20 Physician, specialty, service, details: I spoke with GI Dr. Watson. Discussed patients PMHx, HPI, ED course, exam findings, labs, and radiology results as noted above. He agrees to consult. Consult #2: Date/time: 05/25/25 16:26 Physician, specialty, service, details: I spoke with correctional guard Dr. Acevedo. Discussed patients PMHx, HPI, ED course, exam findings, labs, and radiology results as noted above. Diagnosis Most likely dx, and/or detailed dx discussion: severe anemia weakness lung cancer acute hypotension melena tachycardia Dispositon Disposition: Admit
[2025-05-25 14:41] LABS: Basophils # (Auto) 0.1 Thou/mm3 (0.0-0.2); Basophils % (Auto) 1 % (0-2.5); Eosinophils # (Auto) 0.2 Thou/mm3 (0.0-0.5); Eosinophils % (Auto) 2 % (0-10); Immature Granulocytes Auto 0.95 Thou/mm3 (0.00-0.00); Lymphocytes # (Auto) 2.9 Thou/mm3 (1.0-4.8); Lymphocytes % (Auto) 25 % (10-50); Mean Corpuscular HGB Conc 32.9 g/dl (31.0-37.0); Mean Corpuscular Hemoglobin 30.5 pg (25.0-35.0); Mean Corpuscular Volume 93 fL (80-100); Monocytes # (Auto) 1.0 Thou/mm3 (0.0-0.8); Monocytes % (Auto) 9 % (0-12); Neutrophils # (Auto) 6.5 Thou/mm3 (1.8-7.7); Neutrophils % (Auto) 56 % (37-80); Nucleated Red Blood Cell # 2.24 Thou/mm3 (0.00-0.00); Nucleated Red Blood Cell % 19 /100 WBC (0); RDW Standard Deviation 76.8 fL (35.1-43.9); Red Blood Count 1.54 Miln/mm3 (4.50-5.90); White Blood Count 11.6 Thou/mm3 (3.8-10.6)
[2025-05-25 14:49] LABS: Hematocrit 14.3 % (41.0-53.0); Hemoglobin 4.7 g/dL (13.5-16.0); Platelet Count 36 Thou/mm3 (140-440)
[2025-05-25 14:53] LABS: INR 1.6 (0.9-1.3); Partial Thromboplastin Time 37.7 Seconds (22.0-36.0); Prothrombin Time 16.8 Seconds (9.0-12.2)
[2025-05-25 15:06] LABS: Alanine Aminotransferase 15 U/L (10-49); Albumin, Serum 3.5 gm/dL (3.5-5.0); Albumin/Globulin Ratio 1.3 (1.2-2.2); Alkaline Phosphatase 1050 U/L (46-116); Anion Gap 10 (7-16); Aspartate Amino Transferase 22 U/L (0-34); BUN/Creatinine Ratio 20 Ratio (12-20); Bilirubin,Total 1.8 mg/dL (0.3-1.2); Blood Urea Nitrogen 12 mg/dL (9-23); Calcium 8.2 mg/dL (8.3-10.6); Calcium (Corrected) 8.6 mg/dL (8.5-10.1); Carbon Dioxide 27.5 mMol/L (20.0-31.0); Chloride 100 mMol/L (98-107); Creatinine (Component) 0.6 mg/dL (0.6-1.3); Estimated Creatinine Clearance 128.1 mL/min (>60); Globulin 2.6 gm/dL (2.3-3.5); Glucose 135 mg/dL (74-106); Osmolality,Calculated 275 (275-295); Potassium 4.2 mMol/L (3.4-5.1); Sodium 137 mMol/L (136-145); Total Protein 6.1 gm/dL (5.7-8.2); eGFR > 60 See Note
[2025-05-25 15:13] LABS: Slide Review Platelets confirmed
--- NOTE | 2025-05-25 16:08 | PD.EDADULT ---
ED General RME/HPI General Chief complaint: Recheck/Abnormal Lab/Rx Stated complaint: Hemoglobin is low, tired weak on Hospice Time Seen by Provider: 05/25/25 14:24 Arrival date/time: 05/25/25 13:22 RME / HPI RME / HPI narrative: 49 year old male with history of history of metastatic GI cancer, mets to bones and lungs, pulmonary nodules, anemia requiring blood transfusion presents to the ED brought in by requesting a blood transfusion today. reports in the last 2 days patient appears globally weak, fatigued, and pale. Reportedly experienced similar symptoms last week and noted to be anemic requiring a blood transfusion. Related Data Allergies Allergy/AdvReac Type Severity Reaction Status Date / Time Penicillins Allergy Intermediate RASH Verified 05/25/25 13:29 Past Medical History Past Medical History RESPIRATORY: Positive Pneumonia MUSCULOSKELETAL: Positive Musculoskeletal Disorders HEMATOLOGIC: Positive Anemia PSYCHO/SOCIAL: Positive Depression OTHER HISTORY: Positive Blood Transfusions, Chemotherapy, Cancer and Lung Cancer Surgical History SURGICAL: Negative Cardiac Surgery, Endocrine Surgery, Abdominal Surgery, Joint Replacement or Vasectomy Social History SMOKING STATUS: Never smoker SUBSTANCE USE: does not use Course Quality Measures none Orders Category Date Time Status Dial Mounter NOW Care 05/25/25 13:57 Active IV [Insert IV] NOW Care 05/25/25 17:07 Active Insert IV NOW Care 05/25/25 13:57 Active Transfuse,blood/blood products NOW Care 05/25/25 16:19 Active Consult to Gastroenterology Stat Cons 05/25/25 16:30 Ordered CBC Stat Lab 05/25/25 14:29 Completed Comprehensive Metabolic Panel Stat Lab 05/25/25 14:29 Completed Fresh Frozen Plasma Stat Lab 05/25/25 14:29 Results PLATELETS [Pheresis Platelets] Stat Lab 05/25/25 14:29 Results Partial Thromboplastin Time Stat Lab 05/25/25 14:29 Completed Prothrombin Time with INR Stat Lab 05/25/25 14:29 Completed Red Blood Cells Stat Lab 05/25/25 14:29 Results Type and Screen Stat Lab 05/25/25 14:29 Results Morphine Inj Med 05/25/25 17:37 Discontinued 2 mg IVP X1 ONE Pantoprazole Inj [Protonix Inj] Med 05/25/25 16:29 Discontinued 40 mg IVP X1 ONE Pantoprazole Inj [Protonix Inj] Med 05/25/25 17:08 Discontinued 80 mg IVP X1 ONE Vital Signs Vital signs: Vital Signs Temperature 97.5 F 05/25/25 13:50 Pulse Rate 137 H 05/25/25 13:50 Respiratory Rate 18 05/25/25 13:50 Blood Pressure 90/57 L 05/25/25 13:50 Pulse Oximetry (%) 95 05/25/25 13:50 Oxygen Delivery Method Room Air 05/25/25 13:50 Pulse ox is 95% on room air which is adequate. Discharge Plan Plan Patient Disposition: Admit Acute Care w/in Hospital Prescriptions/Referrals Referrals: Kenneth Baker PA-C [Primary Care Provider] - In 1 week Problem List Clinical Impression: Severe anemia, Weakness, Lung cancer, Acute hypotension, Melena, Tachycardia Impression comment: Patient has end-of-life issues who wants to be transfused and evidently needs capsule endoscopy per previous workup but patient is too sick to be transferred at this time. Patient/Caregiver Discharge Instructions Print Language: Montenegrin Stand Alone Forms: [employer] Award Info., Patient Portal Info Letter MDM Medication Administration(s) Medication Administration History Discontinued Medications Morphine Sulfate (Morphine Sulf Inj 10 Mg/Ml Vial) 2 mg IVP X1 ONE Stop: 05/25/25 17:38 Pantoprazole Sodium (Pantoprazole Inj 40 Mg Vial) 40 mg IVP X1 ONE Stop: 05/25/25 16:30 Pantoprazole Sodium (Pantoprazole Inj 40 Mg Vial) 80 mg IVP X1 ONE Stop: 05/25/25 17:09
--- NOTE | 2025-05-25 16:20 | PC.NURSE ---
Dr. Sequeira speaking with Dr. Schwartz regarding patients plan of care.
--- NOTE | 2025-05-25 17:48 | XR_ITS ---
Examination: AP chest single view TECHNIQUE: AP portable sitting chest single view Date and time: May 25, 2025 1840 hours INDICATIONS: Shortness of breath today, history recurrent large right pleural effusions post Pleurx catheter FINDINGS: Mild enlargement cardiac contour Prominent vascular congestion Right Port-A-Cath tip right atrium Right Pleurx catheter stable position Pneumonia right base with right pleural fluid Prominent osteopenia IMPRESSION: Mild heart failure Pneumonia right base with right pleural fluid
--- NOTE | 2025-05-25 18:07 | ESHP_ITS ---
<Statement entered by Desi Zuniga MD - 05/25/25 19:20> Patient was seen and examined at bedside. I agree on the assessment and plan on this note as documented by resident Gold Ahuja DO PGY1. 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 on 05/15/2025, patient presented with chief complaint of weakness, patient has been having tarry black stools since last discharge, at bedside reported that patient has been getting progressively weaker unable to eat and also complains of severe underlying nausea. Patient underwent EGD and colonoscopy during the last hospitalization, GI recommended tertiary care management, did have underlying bleeding from small bowel likely. Today in emergency department patient is hypertensive and significantly tachycardic, 3 units PRBC, 2 unit FFP and 2 units platelets were ordered, patient is currently undergoing transfusion, no history of any congestive heart failure, no echocardiogram on file. Family is agreeable to transfusion, patient was discharged on hospice during last admission. GI is consulted during this admission they will consider further workup as needed. Patient has severe symptomatic normocytic normochromic anemia secondary to bleed and anemia of chronic disease, thrombocytopenia and leukocytosis. Elevated INR noted otherwise labs unremarkable. Patient will be admitted to intensive care unit for close monitoring considering patient has active bleeding and hemodynamic instability. Case discussed with attending Dr. Bonds. Desi Zuniga MD PGY-2 Documentation for date of: 05/25/25 HPI History of Present Illness History of present illness: HPI: The patient is a 49-year-old male with a past medical history of gastric cancer with metastases who presented to the emergency department with weakness. ED Course: Patient presented to the emergency room with weakness hypotensive tachycardia black stools with a history of terminal lung cancer per the and states they came in because he is weak and they want to give him a blood transfusion. Blood transfusion was initiated in the ED. Patient has end-of-life issues who wants to be transfused and evidently needs capsule endoscopy per previous workup but patient is too sick to be transferred at this time. Because he is tachycardic hypotensive and melanotic with severe anemia he will need to go to the ICU to get blood. Dr. Watson who knows this patient already had recommended capsule endoscopy because they did not find a source on previous workups. Laboratory studies show a hemoglobin of 4.7 hematocrit of 14.3 white count 11.6 PT/INR is 16.81.6 INR and PTT is 37.7. Sodium 137 potassium 4.2 chloride 100 CO2 27.5 BUN 12 creatinine 0.6 total bilirubin slightly elevated 1.8. Alk phos is elevated 1050. Urinalysis is pending at this time. Vitals on arrival: Blood pressure 90/57, pulse 137, respiratory rate 18, temperature 97.5, O2 sat 95. RBC transfusion initiated in the ED. History: -Past Medical History: Gastric cancer with metastasis -Family History: No significant family history. -Social History: History of alcohol use, marijuana use. -Allergies: Penicillin, rash. -Source of History: Patient. Review of Systems: -General: Admits to weakness. -HEENT: Admits to headache. -Cardiac: Denies chest pain or palpitations. -Pulmonary: Denies shortness of breath or cough. -GI: Admits to black tarry stools for the past 2 weeks. -: Denies dysuria, hematuria, frequency, or urgency. -MSK: Denies pain in the extremities, joints, or myalgias. -Neuro: Denies, numbness, vision changes, or speech difficulty. Exam Vital Signs Temp Pulse Resp BP Pulse Ox O2 Del Method 99.4 F 120 H 18 109/67 95 Room Air 05/25/25 17:40 05/25/25 17:40 05/25/25 17:40 05/25/25 17:40 05/25/25 17:40 05/25/25 16:25 Narrative Exam General: Uncomfortable, ill-appearing man. Neurologic: GCS 15. Alert and oriented x3, no gross neurological deficit, and patient able to move all 4 extremities. HEENT: Normocephalic, atraumatic, mucous membranes moist. Pupils reactive to light. Heart: Regular rate and rhythm, normal S1 and S2, no murmurs. Lungs: Clear to auscultation bilaterally with no wheezing or crackles, Chemo- Port right, Right Pleurx catheter. Abdomen: Firm abdomen, nondistended, nontender.. No guarding or rebound tenderness. Extremities: No edema. 2+ radial and dorsalis pedis pulses bilaterally. Skin: Warm. Dry. No rash or ecchymoses. Results: Labs 05/28/25 05:32 05/28/25 05:32 Labs: Short CBC 05/25/25 Range/Units 14:29 WBC 11.6 H (3.8-10.6) Thou/mm3 Hgb 4.7 L* (13.5-16.0) g/dL Hct 14.3 L* (41.0-53.0) % Plt Count 36 L (140-440) Thou/mm3 BMP 05/25/25 14:29 Sodium 137 Potassium 4.2 Chloride 100 Carbon Dioxide 27.5 BUN 12 Creatinine 0.6 Glucose 135 H Calcium 8.2 L Liver Function 05/25/25 Range/Units 14:29 Total Bilirubin 1.8 H (0.3-1.2) mg/dL AST 22 (0-34) U/L ALT 15 (10-49) U/L Alkaline Phosphatase 1050 H (46-116) U/L Albumin 3.5 (3.5-5.0) gm/dL Quality Measures Quality Measures none Medications Home Medications and Allergies Home Medications ?Medication ?Instructions ?Recorded ?Confirmed ?Type hydromorphone 2 mg tablet 2 mg PO Q3H 05/27/25 5 History (Dilaudid) lorazepam 2 mg/mL oral concentrate 0.5 mg PO Q4H PRN a nxiety 05/27/25 05/27/25 History (Lorazepam Intensol) morphine 100 mg/5 mL oral 10 - 20 mg PO .[id number] 05/2705/27/25 History concentrate Allergies Allergy/AdvReac Type Severity Reaction Status Date / Time Penicillins Allergy Intermediate RASH Verified 05/25/25 13:29 Visit Medications Acetaminophen (Acetaminophen 325 Mg Tablet) 650 mg PO Q6H PRN PRN Reason: Fever >101.5 Stop: 06/24/25 17:41 Acetaminophen (Acetaminophen 325 Mg Tablet) 650 mg PO Q6H PRN PRN Reason: PAIN SCALE 1-3 (mild Stop: 06/24/25 17:41 Hydrocodone Bitart/Acetaminophen (Hydrocodone/Apap 10/325 Tab) 1 tab PO Q4H PRN PRN Reason: PAIN SCALE 4-6 (Moderate Stop: 05/30/25 17:41 Morphine Sulfate (Morphine Sulf Inj 10 Mg/Ml Vial) 2 mg IVP Q2H PRN PRN Reason: PAIN SCALE 7-10 (Severe Stop: 05/30/25 17:41 Ondansetron HCl (Ondansetron Inj 2 Mg/Ml Inj 2 Ml) 4 mg IVP Q6H PRN; Protocol PRN Reason: NAUSEA OR VOMITING Stop: 06/24/25 17:41 Pantoprazole Sodium (Pantoprazole Inj 40 Mg Vial) 40 mg IVP Q12HR JUAN JOSE Stop: 06/24/25 20:59 Phytonadione (Phytonadione Inj 10 Mg/Ml Amp) 10 mg SC X1 ONE Stop: 05/25/25 18:02 Discontinued Medications Morphine Sulfate (Morphine Sulf Inj 10 Mg/Ml Vial) 2 mg IVP X1 ONE Stop: 05/25/25 17:38 Pantoprazole Sodium (Pantoprazole Inj 40 Mg Vial) 40 mg IVP X1 ONE Stop: 05/25/25 16:30 Pantoprazole Sodium (Pantoprazole Inj 40 Mg Vial) 80 mg IVP X1 ONE Stop: 05/25/25 17:09 Assessment & Plan Plan Summary 49-year-old male with a past medical history of gastric cancer with metastases who presented to the ED with weakness. Neuro #Weakness - Patient admits to weakness associated with his black tarry stools over the past 2 weeks, likely associated with patient's severe anemia Plan: - 3 units RBCs ordered Cardiac #Hemorrhagic shock - Patient is hypotensive with a blood pressure of 90/57, pulse 137, in the presence of a 2-week history of black tarry stools, severe anemia, and history of metastatic gastric cancer Plan: -Transfuse 3 units of RBCs - GI consulted Pulmonary #Right malignant carcinoma pleural fluid cytology - Right Pleurx catheter GI #History of metastatic GI cancer - CA 19?9 elevated - Alk phos 1050 - Elevated T. bili likely associated with cancer Plan: - Oncology consulted - Morphine as needed for pain #Melena - 2 weeks of black tarry stools per patient Plan: - 2 large-bore IVs - Protonix started - 3 units RBCs ordered, plan to transfuse - GI consult - Oncology consult #PT/INR coagulopathy - PT 16.8 INR 1.6, APTT 37.7 - Likely due to chronic disease Plan: - FFP transfusion - Platelet transfusion - Trend PT/INR APTT in a.m. Renal -No pertinent problems Infectious Disease -No pertinent problems. Endocrine #Elevated CA 19-9 #Elevated Alk Phos - CA 19?9 alk phos both elevated likely in the presence of gastric cancer Plan: - Oncology consulted Heme #Normocytic normochromic anemia - Hemoglobin 4.7 hematocrit 14.3 on arrival Plan: - 3 units RBCs ordered, will transfuse #Thrombocytopenia - Platelets 36 - Has evidence of acute GI bleed - May require EGD Plan: - 2 units of platelets ordered in anticipation of EGD - FFP ordered MSK -No pertinent problems. Skin -No pertinent problems. Urogenital -No pertinent problems. Lines/Access - 2 peripheral IVs Nutrition - NPO Sedation/Analgesia - No sedation DVT Prophylaxis - SCDs GI Prophylaxis - Pantoprazole Code Status - Full code Disposition: Patient admitted to ICU due to severe anemia. GI consulted, oncology consulted, and the patient will receive blood, platelet, and FFP transfusions. Attending Provider Attestation/Addendum Patient not seen on date of service. I was contacted by above resident in regards to admission. Emergency physician request admission for patient with GI bleed, previous workup suggest that there may be a small bowel origin this was not definitive. Patient would benefit from capsule endoscopy which is not available at our facility. However after discussion with GI, ED physician relates that plan to repeat endoscopy after hemodynamic stabilization. They did not feel the patient could be transferred safely at this point and we will be aggressive with volume and blood product resuscitation to optimize the patient's status in order to facilitate completion of procedural workup. Patient may ultimately still require transfer to outside facility for services that are not available at hours. Patient well-known to me previously due to pulmonary consultation for recurrent pleural effusion with right Pleurx catheter in place with course complicated by hemothorax and frequent admission. Patient notably has been placed on hospice care but family and him have requested to remain full code and be aggressive means for stabilization of acute process at this time. This is reasonable for the time trial within the ICU and hospital course to optimize reversible conditions of this will likely not affect his overall prognosis. Plan of care as documented above discussed with residents and I will see the patient formally tomorrow during rounds. I remain available overnight in case any issues to arise.
[2025-05-25] MEDS: PHYTONADIONE INJ 10 MG/ML AMP SC (18:47)
[2025-05-25] MEDS: MORPHINE SULF INJ 10 MG/ML VIAL 2 MG IVP ×2 (18:47→21:55)
[2025-05-25] MEDS: ONDANSETRON INJ 2 MG/ML INJ 2 ML 4 MG IVP (18:48)
[2025-05-25 18:50] LABS: OBS Performed By ALMAA; OBS QC OK? Yes; Occult Blood, Stool Positive (Negative)
--- NOTE | 2025-05-25 21:56 | PD.IMCONS ---
HPI Data of Consult Requesting Physician: Madan Bonds MD Primary Care Provider: Kenneth Baker PA-C Consult Narrative Reason for consult: melena H/close 4.7/14.3, History of present illness: 49 years old male I been consulted by the ER physician for melanotic stools and the presenting hemoglobin hematocrit as of 714 was 6.2 and 70.5 As of 05/15/2025 it was 9.3 and today in the ER it was 4.7 and 14.3 Patient is well-known to me from the previous admission and the workup included the following 05/05/2025 right thoracentesis which showed malignant cells most likely of the GI tract origin malignancy 05/10/2025 fiberoptic upper endoscopy which showed gastritis biopsies are negative for Helicobacter pylori or any malignancy no mass was seen On 05/11/2025 colonoscopy done which showed normal colonoscopy except blood all the way up to the cecum and intubation of terminal ileum up to 20 cm which showed blood in the terminal ileum as well At that point I recommended capsule endoscopy Lastly patient left home with hospice 05/07/2025 CT chest as shown right hemithorax empyema moderate left pleural effusion 32 mm mass right upper lobe and widespread osteoblastic lesions 05/05/2025 right ileocecal biopsy nonconclusive CA 19?9 level 654 PSA 0.4 I have been consulted cc:: cc: Madan Bonds MD Review of Systems Review of Systems Systems Reviewed: All systems reviewed, normal except as documented Meds Home Medications and Allergies Home Medications ?Medication ?Instructions ?Recorded ?Confirmed ?Type hydromorphone 2 mg tablet 2 mg PO Q3H 05/27/25 05/27/25 History (Dilaudid) lorazepam 2 mg/mL oral concentrate 0.5 mg PO Q4H PRN anxiety 05/27/25 05/27/25 History (Lorazepam Intensol) morphine 100 mg/5 mL oral 10 - 20 mg PO .[id number] 05/27/25 05/27/25 History concentrate Allergies Allergy/AdvReac Type Severity Reaction Status Date / Time Penicillins Allergy Intermediate RASH Verified 05/25/25 13:29 Exam Vital Signs Temp Pulse Resp BP Pulse Ox O2 Del Method O2 Flow Rate 99.6 F 119 H 27 H 116/71 93 L Room Air 3 05/25/25 21:49 05/25/25 21:49 05/25/25 21:49 05/25/25 21:49 05/25/25 21:49 05/25/25 19:12 05/25/25 21:49 Constitutional Comments: Weak and lethargic Routine Respiratory Exam Comments: Decreased breath sounds Routine Abdominal Exam Comments: Soft nontender Results Labs 05/27/25 04:34 05/27/25 04:34 Labs: Short CBC 05/25/25 Range/Units 14:29 WBC 11.6 H (3.8-10.6) Thou/mm3 Hgb 4.7 L* (13.5-16.0) g/dL Hct 14.3 L* (41.0-53.0) % Plt Count 36 L (140-440) Thou/mm3 BMP 05/25/25 14:29 Sodium 137 Potassium 4.2 Chloride 100 Carbon Dioxide 27.5 BUN 12 Creatinine 0.6 Glucose 135 H Calcium 8.2 L Liver Function 05/25/25 Range/Units 14:29 Total Bilirubin 1.8 H (0.3-1.2) mg/dL AST 22 (0-34) U/L ALT 15 (10-49) U/L Alkaline Phosphatase 1050 H (46-116) U/L Albumin 3.5 (3.5-5.0) gm/dL Assessment and Plan Additional Assessment & Plan Additional Plan: Widespread metastatic disease of an unknown primary Source of bleeding I do believe still remains small bowel however Since hemoglobin has dropped down to 4.7 g and patient is having melanotic stools Recommend nuclear medicine GI bleeding scan further evaluation after above Agree with the blood transfusion Will follow the patient Thank you very much for the opportunity to participate in the care of this patient
--- NOTE | 2025-05-25 22:04 | XR_ITS ---
Examination: Nuclear medicine gastrointestinal bleeding study Date and time: May 26, 2025 1054 hours INDICATIONS: Black stools and anemia this month TECHNIQUE AND FINDINGS: Intravenous administration 23.3 mCi technetium 99m pertechnetate labeled red blood cells Serial imaging obtained 60 frames per second 90 images Normal cardiac liver and abdominal vascular uptake No abnormal focus of isotope accumulation IMPRESSION: Negative nuclear medicine gastrointestinal bleeding study
--- NOTE | 2025-05-25 22:42 | PC.NURSE ---
Med Rec not completed, pt instructed to have spouse bring in all home meds tomorrow during visiting hours
[2025-05-26] VITALS (71 sets, daily range): BP systolic 94–142; BP diastolic 59–95; PULSE 93–131; RESP 13–94; TEMP 36.6–37.7; O2SAT 79–99
[2025-05-26] MEDS: MORPHINE SULF INJ 10 MG/ML VIAL 2 MG IVP ×6 (04:18→20:36)
[2025-05-26 07:44] LABS: Basophils # (Auto) 0.1 Thou/mm3 (0.0-0.2); Basophils % (Auto) 1 % (0-2.5); Eosinophils # (Auto) 0.1 Thou/mm3 (0.0-0.5); Eosinophils % (Auto) 2 % (0-10); Hematocrit 22.6 % (41.0-53.0); Immature Granulocytes Auto 0.72 Thou/mm3 (0.00-0.00); Lymphocytes # (Auto) 1.3 Thou/mm3 (1.0-4.8); Lymphocytes % (Auto) 16 % (10-50); Mean Corpuscular HGB Conc 35.4 g/dl (31.0-37.0); Mean Corpuscular Hemoglobin 30.3 pg (25.0-35.0); Mean Corpuscular Volume 86 fL (80-100); Monocytes # (Auto) 0.9 Thou/mm3 (0.0-0.8); Monocytes % (Auto) 10 % (0-12); Neutrophils # (Auto) 5.2 Thou/mm3 (1.8-7.7); Neutrophils % (Auto) 63 % (37-80); Nucleated Red Blood Cell # 1.22 Thou/mm3 (0.00-0.00); Nucleated Red Blood Cell % 15 /100 WBC (0); Platelet Count 129 Thou/mm3 (140-440); RDW Standard Deviation 55.7 fL (35.1-43.9); Red Blood Count 2.64 Miln/mm3 (4.50-5.90); White Blood Count 8.2 Thou/mm3 (3.8-10.6)
[2025-05-26 08:00] LABS: Hemoglobin 7.9 g/dL (13.5-16.0)
[2025-05-26 08:09] LABS: Alanine Aminotransferase 17 U/L (10-49); Albumin, Serum 3.3 gm/dL (3.5-5.0); Albumin/Globulin Ratio 1.4 (1.2-2.2); Alkaline Phosphatase 821 U/L (46-116); Anion Gap 8 (7-16); Aspartate Amino Transferase 20 U/L (0-34); BUN/Creatinine Ratio 18 Ratio (12-20); Bilirubin,Total 2.6 mg/dL (0.3-1.2); Blood Urea Nitrogen 9 mg/dL (9-23); Calcium 8.7 mg/dL (8.3-10.6); Calcium (Corrected) 9.3 mg/dL (8.5-10.1); Carbon Dioxide 29.7 mMol/L (20.0-31.0); Chloride 100 mMol/L (98-107); Creatinine (Component) 0.5 mg/dL (0.6-1.3); Estimated Creatinine Clearance 152.8 mL/min (>60); Globulin 2.3 gm/dL (2.3-3.5); Glucose 109 mg/dL (74-106); Magnesium 1.5 mg/dL (1.6-2.6); Osmolality,Calculated 275 (275-295); Phosphorous 3.3 mg/dL (2.4-5.1); Potassium 4.2 mMol/L (3.4-5.1); Sodium 138 mMol/L (136-145); Thyroid Stimulating Hormone 4.70 uIU/mL (0.55-4.78); Total Protein 5.6 gm/dL (5.7-8.2); eGFR > 60 See Note
--- NOTE | 2025-05-26 08:11 | PD.ONCCONS ---
HPI Data of Consult Consult date: 05/26/25 Requesting Physician: Madan Bonds MD Primary Care Provider: Kenneth Baker PA-C Consult Narrative Reason for consult: Patient with disseminated malignancy recently in hospice History of present illness: Patient unfortunate 49-year-old gentleman was recently placed on hospice but elected to come to the ER for regular care. Suspected to have widespread mets from GI primary, following endoscopy procedures was felt to have significant bleeding from small bowel region. Family was given a choice of transfer to tertiary center such as [facility] for capsule endoscopy. Elected to go to hospice several days ago. When initially seen in early February of this year was noted to have widespread bony mets and pleural fluid which when removed revealed malignant carcinoma with GI primary being a possible source. The cytology was not enough to identify the primary site along with doing the molecular studies for immunotherapy or targeted therapy. Bone biopsy from iliac crest 05-28 was inconclusive. Traditional chemo was unlikely to help patient unless more information obtained when evaluated by medical oncologist. At the ER 05/23/2025 his hemoglobin was 4.7 with alk phos 821 bilirubin 2.6. Following endoscopy procedures, it was felt that the bleeding was likely coming from small bowel and transferred to tertiary facility for capsule endoscopy was recommended. After discussing with the family elected to go to hospice at that time. Patient came to ER yesterday with significant bleeding hypotension tachycardia and decided to get regular care rather than staying in hospice. CBC 05/25/2024 was hemoglobin 4.7 platelets 36,000. Patient received 3 units of packed cells had ordered 2 units of fresh frozen plasma and 2 units of platelets and admitted to the ICU. cc:: cc: Madan Bonds MD Past Medical History Past Medical History Comments PMH COMMENT: Diagnosis of stage IV malignancy type still undetermined since February 2025. Recently was made a hospice patient since revoked. Placement of right Pleurx catheter Meds Home Medications and Allergies Allergies Allergy/AdvReac Type Severity Reaction Status Date / Time Penicillins Allergy Intermediate RASH Verified 05/25/25 13:29 Exam Vital Signs Temp Pulse Resp BP Pulse Ox O2 Del Method O2 Flow Rate 98.0 F 98 21 H 101/70 90 L Room Air 4 05/26/25 05:39 05/26/25 07:45 05/26/25 07:45 05/26/25 07:45 05/26/25 07:45 05/25/25 19:12 05/26/25 05:39 Narrative Exam Appears tired but comfortable Results Labs 05/26/25 06:55 05/26/25 06:55 Labs: Short CBC 05/25/25 05/26/25 Range/Units 14:29 06:55 WBC 11.6 H 8.2 (3.8-10.6) Thou/mm3 Hgb 4.7 L* (13.5-16.0) g/dL Hct 14.3 L* 22.6 L (41.0-53.0) % Plt Count 36 L 129 L D (140-440) Thou/mm3 BMP 05/25/25 05/26/25 14:29 06:55 Sodium 137 138 Potassium 4.2 4.2 Chloride 100 100 Carbon Dioxide 27.5 29.7 BUN 12 9 Creatinine 0.6 0.5 L Glucose 135 H 109 H Calcium 8.2 L 8.7 Liver Function 05/25/25 05/26/25 Range/Units 14:29 06:55 Total Bilirubin 1.8 H 2.6 H D (0.3-1.2) mg/dL AST 22 20 (0-34) U/L ALT 15 17 (10-49) U/L Alkaline Phosphatase 1050 H 821 H D (46-116) U/L Albumin 3.5 3.3 L (3.5-5.0) gm/dL Urine 05/25/25 Range/Units 00:46 Urine Color Cancelled Urine Clarity Cancelled Urine pH Cancelled Ur Specific [place] Cancelled Urine Protein Cancelled Urine Glucose (UA) Cancelled Assessment and Plan Additional Assessment & Plan Additional Plan: 1. Suspected small bowel malignancy with active bleeding admitted with transfusions and other supportive care. 2. Briefly opted for hospice care but now admitted seeking regular care. 3. Nuclear medicine GI bleeding scan pending.
[2025-05-26 08:26] LABS: INR 1.3 (0.9-1.3); Partial Thromboplastin Time 39.8 Seconds (22.0-36.0); Prothrombin Time 14.2 Seconds (9.0-12.2)
[2025-05-26 09:26] LABS: Band Neutrophils (Manual) 3 % (0-6); Eosinophils (Manual) 2 % (0-4); Lymphocytes (Manual) 13 % (20-44); Monocytes (Manual) 8 % (2-9); Neutrophils (Manual) 74 % (50-70); Poikilocytosis 1+
[2025-05-26 09:27] LABS: Acanthocytes 1+; Macrocytosis 1+; Spherocytes 1+; Stomatocytes 1+
--- NOTE | 2025-05-26 11:08 | ESPR_ITS ---
<Statement entered by Desi Zuniga MD - 05/26/25 14:32> Patient was seen and examined at bedside. I agree on the assessment and plan on this note as documented by resident Gold Ahuja DO PGY1. Patient seen and examined at bedside, patient's tachycardia has improved significantly, hemodynamically stable, patient received 3 units PRBC, 1 unit FFP and 2 units of platelets overnight. Hemoglobin improved to 7.9, platelets improved to 129, patient did receive vitamin K as well yesterday, INR improved to 1.3. Patient has malignancy of unknown origin underlying, will highly benefit from tertiary care, nuclear medicine scan ordered by gastroenterology if patient has small bowel bleed, patient should be transferred to tertiary care for capsule endoscopy/interventional radiology intervention to assess for bleeding site. Low suspicion of DIC, fibrinogen on past admissions was within normal limits. Magnesium was repleted today, as patient is hemodynamically stable does not seem to be in hemorrhagic shock, patient is stable for downgrade to [facility], hospitalist team to resume care of the patient, patient signed out to hospitalist team A. Case discussed with attending Dr. Vamshi Zuniga MD PGY-2 Documentation for date of: 05/26/25 Subjective Subjective Interval history: HPI: The patient is a 49-year-old male with a past medical history of gastric cancer with metastases who presented to the emergency department with weakness. ED Course: Patient presented to the emergency room with weakness hypotensive tachycardia black stools with a history of terminal lung cancer per the and states they came in because he is weak and they want to give him a blood transfusion. Blood transfusion was initiated in the ED. Patient has end-of-life issues who wants to be transfused and evidently needs capsule endoscopy per previous workup but patient is too sick to be transferred at this time. Because he is tachycardic hypotensive and melanotic with severe anemia he will need to go to the ICU to get blood. Dr. Watson who knows this patient already had recommended capsule endoscopy because they did not find a source on previous workups. Laboratory studies show a hemoglobin of 4.7 hematocrit of 14.3 white count 11.6 PT/INR is 16.81.6 INR and PTT is 37.7. Sodium 137 potassium 4.2 chloride 100 CO2 27.5 BUN 12 creatinine 0.6 total bilirubin slightly elevated 1.8. Alk phos is elevated 1050. Urinalysis is pending at this time. Vitals on arrival: Blood pressure 90/57, pulse 137, respiratory rate 18, temperature 97.5, O2 sat 95. RBC transfusion initiated in the ED. Interval History: 05/26/2025: Patient was transfused 3 units of RBCs, 2 units of platelets, 1 unit of FFP. Hemoglobin, hematocrit, platelets are all trending towards normal but patient remains anemic and thrombocytopenic. GI and oncology are consulted. GI recommended nuclear med bleed scan, results were negative. GI also recommended a pill endoscopy in the past outpatient due to likely source of bleeding being in the small bowel. Patient received magnesium, magnesium 1.5. Downgrade, follow- up CBC. Exam Vital Signs Temp Pulse Resp BP Pulse Ox O2 Del Method O2 Flow Rate 98.0 F 98 21 H 101/70 90 L Room Air 4 05/26/25 05:39 05/26/25 07:45 05/26/25 07:45 05/26/25 07:45 05/26/25 07:45 05/25/25 19:12 05/26/25 05:39 Narrative Exam General: Uncomfortable, ill-appearing man. Neurologic: GCS 15. Alert and oriented x3, no gross neurological deficit, and patient able to move all 4 extremities. HEENT: Normocephalic, atraumatic, mucous membranes moist. Pupils reactive to light. Heart: Regular rate and rhythm, normal S1 and S2, no murmurs. Lungs: Clear to auscultation bilaterally with no wheezing or crackles, Chemo- Port right, Right Pleurx catheter. Abdomen: Firm abdomen, nondistended, nontender. No guarding or rebound tenderness. Extremities: No edema. 2+ radial and dorsalis pedis pulses bilaterally. Skin: Warm. Dry. No rash or ecchymoses. Objective Labs 05/28/25 05:32 05/28/25 05:32 Labs: Laboratory Results - last 24 hr 05/25/25 05/25/25 05/25/25 00:46 14:29 16:18 WBC 11.6 H RBC 1.54 L* Hgb 4.7 L* Hct 14.3 L* MCV 93 MCH 30.5 MCHC 32.9 RDW Std Deviation 76.8 H Plt Count 36 L Neut % (Auto) 56 Lymph % (Auto) 25 [place] % (Auto) 9 Eos % (Auto) 2 Baso % (Auto) 1 Neut # (Auto) 6.5 Lymph # (Auto) 2.9 [place] # (Auto) 1.0 H Eos # (Auto) 0.2 Baso # (Auto) 0.1 Immature Gran # (Auto) 0.95 H Absolute Nucleated RBC 2.24 H Immature Gran % 8 H Neutrophils % (Manual) Monocytes % (Manual) Eosinophils % (Manual) Nucleated RBC % 19 H Band Neutrophils Lymphocytes (Manual) Poikilocytosis Macrocytosis Spherocytes Stomatocytes Acanthocytes (Spur) PT 16.8 H INR 1.6 H APTT 37.7 H Sodium 137 Potassium 4.2 Chloride 100 Carbon Dioxide 27.5 Anion Gap 10 BUN 12 Creatinine 0.6 Estim Creat Clear Calc 128.1 eGFR > 60 BUN/Creatinine Ratio 20 Glucose 135 H Calculated Osmolality 275 Calcium 8.2 L Corrected Calcium 8.6 Phosphorus Magnesium Total Bilirubin 1.8 H AST 22 ALT 15 Alkaline Phosphatase 1050 H Total Protein 6.1 Albumin 3.5 Globulin 2.6 Albumin/Globulin Ratio 1.3 TSH Ur Collection Type Cancelled Urine Color Cancelled Urine Clarity Cancelled Urine pH Cancelled Ur Specific [place] Cancelled Urine Protein Cancelled Urine Glucose (UA) Cancelled Urine Ketones Cancelled Urine Blood Cancelled Urine Nitrite Cancelled Urine Bilirubin Cancelled Urine Urobilinogen (Auto) Cancelled Ur Leukocyte Esterase Cancelled Urine RBC Cancelled Urine WBC Cancelled Ur Squamous Epith Cells Cancelled Ur Transition Epith Cell Cancelled Ur Renal Epithelial Cell Cancelled Calcium Carbonate Cryst Cancelled Calcium Phosphate Cryst Cancelled Calcium Oxalate Crystal Cancelled Leucine Crystals Cancelled Cystine Crystals Cancelled Uric Acid Crystals Cancelled Triple Phos Crystals Cancelled Tyrosine Crystals Cancelled Amorphous Crystals Cancelled Urine Bacteria Cancelled Cellular Casts Cancelled Epithelial Casts Cancelled Fatty Casts Cancelled Hyaline Casts Cancelled Granular Casts Cancelled Waxy Casts Cancelled Broad Casts Cancelled RBC Casts Cancelled Urine Mucus Cancelled Urine Trichomonas Cancelled Ur Yeast w Hyphae Cancelled Urine Yeast (Budding) Cancelled Urine Sperm Cancelled Ur Oval Fat Bodies Cancelled Stool Occult Blood Positive A Misc Test Result Platelets confirmed Blood Type A Positive Antibody Screen NEGATIVE Crossmatch See Detail Blood Bank Wristband ID Yes Blood Bank Comment PLATP Ready 05/26/25 06:55 WBC 8.2 RBC 2.64 L Hgb 7.9 L D Hct 22.6 L MCV 86 MCH 30.3 MCHC 35.4 RDW Std Deviation 55.7 H Plt Count 129 L D Neut % (Auto) 63 Lymph % (Auto) 16 [place] % (Auto) 10 Eos % (Auto) 2 Baso % (Auto) 1 Neut # (Auto) 5.2 Lymph # (Auto) 1.3 [place] # (Auto) 0.9 H Eos # (Auto) 0.1 Baso # (Auto) 0.1 Immature Gran # (Auto) 0.72 H Absolute Nucleated RBC 1.22 H Immature Gran % 9 H Neutrophils % (Manual) 74 H Monocytes % (Manual) 8 Eosinophils % (Manual) 2 Nucleated RBC % 15 H Band Neutrophils 3 Lymphocytes (Manual) 13 L Poikilocytosis 1+ Macrocytosis 1+ Spherocytes 1+ Stomatocytes 1+ Acanthocytes (Spur) 1+ A PT 14.2 H INR 1.3 APTT 39.8 H Sodium 138 Potassium 4.2 Chloride 100 Carbon Dioxide 29.7 Anion Gap 8 BUN 9 Creatinine 0.5 L Estim Creat Clear Calc 152.8 eGFR > 60 BUN/Creatinine Ratio 18 Glucose 109 H Calculated Osmolality 275 Calcium 8.7 Corrected Calcium 9.3 Phosphorus 3.3 Magnesium 1.5 L Total Bilirubin 2.6 H D AST 20 ALT 17 Alkaline Phosphatase 821 H D Total Protein 5.6 L Albumin 3.3 L Globulin 2.3 Albumin/Globulin Ratio 1.4 TSH 4.70 Ur Collection Type Urine Color Urine Clarity Urine pH Ur Specific [place] Urine Protein Urine Glucose (UA) Urine Ketones Urine Blood Urine Nitrite Urine Bilirubin Urine Urobilinogen (Auto) Ur Leukocyte Esterase Urine RBC Urine WBC Ur Squamous Epith Cells Ur Transition Epith Cell Ur Renal Epithelial Cell Calcium Carbonate Cryst Calcium Phosphate Cryst Calcium Oxalate Crystal Leucine Crystals Cystine Crystals Uric Acid Crystals Triple Phos Crystals Tyrosine Crystals Amorphous Crystals Urine Bacteria Cellular Casts Epithelial Casts Fatty Casts Hyaline Casts Granular Casts Waxy Casts Broad Casts RBC Casts Urine Mucus Urine Trichomonas Ur Yeast w Hyphae Urine Yeast (Budding) Urine Sperm Ur Oval Fat Bodies Stool Occult Blood Misc Test Result Blood Type Antibody Screen Crossmatch Blood Bank Wristband ID Blood Bank Comment Quality Measures Quality Measures none Assessment & Plan Assessment Current Active Medications: Generic Name Dose Route Start Last Admin Trade Name Freq PRN Reason Stop Dose Admin Acetaminophen 650 mg 05/25/25 17:42 Acetaminophen 325 Mg Tablet PO 06/24/25 17:41 Q6H PRN Fever >101.5 Acetaminophen 650 mg 05/25/25 17:42 Acetaminophen 325 Mg Tablet PO 06/24/25 17:41 Q6H PRN PAIN SCALE 1-3 (mild Hydrocodone Bitart/Acetaminophen 1 tab 05/25/25 17:42 05/26/25 05:19 Hydrocodone/Apap 10/325 Tab PO 05/30/25 17:41 1 tab Q4H PRN Administration PAIN SCALE 4-6 (Moderate Magnesium Sulfate 4 gm in 50 mls @ 12.5 mls/hr 05/26/25 09:25 Magnesium Sulfate Ivpb IV 05/26/25 13:24 X1 ONE Morphine Sulfate 2 mg 05/25/25 17:42 05/26/25 08:34 Morphine Sulf Inj 10 Mg/Ml Vial IVP 05/30/25 17:41 2 mg Q2H PRN Administration PAIN SCALE 7-10 (Severe Ondansetron HCl 4 mg 05/25/25 17:42 05/25/25 18:48 Ondansetron Inj 2 Mg/Ml Inj 2 Ml IVP 06/24/25 17:41 4 mg Q6H PRN Administration NAUSEA OR VOMITING Protocol Pantoprazole Sodium 40 mg 05/25/25 21:00 05/26/25 08:33 Pantoprazole Inj 40 Mg Vial IVP 06/24/25 20:59 40 mg Q12HR JUAN JOSE Administration Plan Summary 49-year-old male with a past medical history of gastric cancer with metastases who presented to the ED with weakness. Neuro #Weakness - Patient admits to weakness associated with his black tarry stools over the past 2 weeks, likely associated with patient's severe anemia Plan: - See cardiac Cardiac #Hemorrhagic shock - Patient is hypotensive with a blood pressure of 90/57, pulse 137, in the presence of a 2-week history of black tarry stools, severe anemia, and history of metastatic gastric cancer - Received: 3 U RBCs, 1 U FFP, 2 U Platelets - Hemoglobin, hematocrit, and platelets trending towards normal - Nuclear GI scan negative for hemorrhage, likely due to slow rate of bleed Plan: - Follow-up GI, pill endoscopy - Follow-up CBC 6 hours post-transfusion Pulmonary #Right malignant carcinoma pleural fluid cytology - Right Pleurx catheter GI #History of metastatic GI cancer - CA 19?9 elevated - Alk phos 1050 - Elevated T. bili likely associated with cancer Plan: - Oncology consulted - Morphine as needed for pain #Melena #GI Bleed - 2 weeks of black tarry stools per patient - Nuclear GI scan negative for hemorrhage, likely due to slow rate of bleed Plan: -Continue 2 large-bore peripheral IVs - Continue Protonix - Follow-up GI consult #PT/INR coagulopathy - PT 16.8 INR 1.6, APTT 37.7 - Likely due to chronic disease - PT 14.2, INR 1.3, PTT 39.8 morning of 05/26/2025 Plan: - Trend Renal -No pertinent problems Infectious Disease -No pertinent problems. Endocrine #Elevated CA 19-9 #Elevated Alk Phos - CA 19?9 alk phos both elevated likely in the presence of gastric cancer Plan: - Oncology consulted Heme #Normocytic normochromic anemia - Hemoglobin 4.7 hematocrit 14.3 on arrival - Patient received 3 U RBCs, 1 U FFP, 2 U platelets, hemoglobin 7.9 hematocrit 22.6 post-transfusion Plan: - F/U CBC 6 hours post-transfusion #Thrombocytopenia - Has evidence of acute GI bleed - Platelets 36, improved to 129 after transfusion Plan: - F/U CBC 6 hours post-transfusion MSK -No pertinent problems. Skin -No pertinent problems. Urogenital -No pertinent problems. Lines/Access - 2 peripheral IVs Nutrition - NPO Sedation/Analgesia - No sedation DVT Prophylaxis - SCDs GI Prophylaxis - Pantoprazole Code Status - Full code Disposition: Patient tolerated transfusion well as his CBC corrected towards normal. Nuclear GI scan was negative for acute bleed. Will follow-up GI for outpatient pill endoscopy. Downgrade. Patient was seen and discussed with my attending physician Dr. Madan Bonds MD and my senior resident Dr. Desi Zuniga MD PGY-2. Gold Ahuja DO PGY-1. Attending Provider Attestation/Addendum Patient seen and examined with above resident, Gold Ahuja DO. I agree with the findings, assessment, and plan of care as document except for any differences below. Patient admitted with recurrent GI bleed in the setting of his unclear etiology of probable GI malignancy with metastasis including presence of bilateral pleural effusions with right Pleurx catheter. Patient known to me from prior admissions with need for drainage as well as thoracentesis. Patient has not received chemotherapy or any definitive therapy for his malignancy as they are still trying to figure out where the origin is. Patient in the present weeks has been requiring intermittent transfusions. With this admission requiring combination of PRBCs/FFP/platelets. Patient remains on Protonix with plan by GI to repeat endoscopy. Ultimately patient may require capsule endoscopy to determine presence of bleeding within the small bowel as on prior EGD/colonoscopy the patient did have blood at the terminal ileum suggesting the small bowel was likely etiology of the blood loss as well as most likely the source of his metastatic malignancy though this needs to be definitively determined. In interim, GI has requested completion of nuclear med study for GI bleed. Will follow-up on results to help determine need for potential transfer to another hospital for capsule endoscopy or vascular intervention which is not available at our facility. If patient's testing comes back negative, will plan for patient to be transition to medicine tomorrow for ongoing monitoring and completion of workup prior to determination of what is the best plan of care for him. Notably patient was on hospice as an outpatient though he remains full code now. Given his young age and indeterminate underlying lesion, family continues to be aggressive. However, short-term use of ICU and hospitalization may be beneficial for stabilization of acute reversible causes is likely will not have effect on his long-term prognosis. Total critical care time: I personally spent 40 minutes for review of physiologic parameters, directing plan of care throughout the day, coordination of care with other subspecialists, and counseling patient/family at bedside. This is exclusive of time spent teaching housestaff or performing any separate billable procedures. Patient remains at significant risk for further morbidity and mortality warranting close monitoring and care only available in the ICU. Patient required critical care services for hemorrhagic shock, metastatic adenocarcinoma of unknown primary origin, GI bleed, acute blood loss anemia.
[2025-05-26] MEDS: Magnesium Sulfate 4 GM Ivpb 4 GM/50 ML BAG IV (11:27)
--- NOTE | 2025-05-26 12:41 | PC.SS ---
MASTER WELDER conducted bedside contact with the patient conduct initial assessment and to discuss discharge planning.? MASTER WELDER utilized translation services.? Patient is Citizen [place] speaking.? Assessment completed with patient?s spouse, Jailene Méndez ; who was present at bedside.? Patient resides at home with spouse. ?Patient does not utilize DME to assist with ambulation.? Patient utilizes home oxygen.? Patient in possession of hospital bed.? Patient requires assistance with the completion of ADL?s.? Patient?s surrogate medical decision maker is spouse, Jailene Méndez.? Patient?s PCP is Kenneth Baker.? Patient?s oncologist is Dr. Schwartz.? Patient possesses history of metastatic GI cancer.? Patient is not currently accessing cancer treatment.? Patient utilizes [facility] for medication services.? Plan is for the patient to return home at the time of discharge.? Patient is aligned with [facility].? Hospice services to resume upon the patient?s return home.? Family will provide transportation on behalf of the patient. ?No further discharge needs identified by the patient.? No further intervention required at this time, social psychologist will be available to address any further concerns.? Next of Kin: Jailene Méndez D/C Plan: Home
--- NOTE | 2025-05-26 13:13 | PC.NURSE ---
at 1127, IV morphine given, consent obtained for fiberoptic EGD per Dr. Watson by pts decision maker Jailene(spouse) at bedside using language line paraprofessional interpreter services Kazakh, pt and spouse agreeable to procedure and no further questions for MD at this time
--- NOTE | 2025-05-26 15:00 | PC.SS ---
HOSPICE MASSAGE THERAPIST informed resident of need to submit referral for hospice. Plan is for the patient to resume [facility] hosp[facility] services upon discharge. Hospice referral pending.
--- NOTE | 2025-05-26 16:26 | PC.SS ---
Update: Hospice referral submitted on [facility]. Patient aligned with [facility] services.
[2025-05-26 16:58] LABS: Hematocrit 23.1 % (41.0-53.0)
[2025-05-26 17:08] LABS: Hemoglobin 8.1 g/dL (13.5-16.0)
--- NOTE | 2025-05-26 17:59 | ESPR_ITS ---
<Statement entered by Omid Segundo MD - 05/26/25 18:41> Patient seen and examined at bedside. I discussed and supervised with the internal corrosion specialist physician who took care of this patient. I personally saw and examined the patient. I agree with most of the assessment and plan. Patient continues to have bloody stools, likely due to small bowel bleed based on previous workup. If patient elects to pursue further treatment, will likely need transfer for small bowel capsule endoscopy. Patient may elect to go back on hospice. GI consult pending. Will closely monitor CBC, transfuse as needed. Will monitor respiratory status, drain from PleurX cath if needed. Plan of care discussed with attending Dr. Brantley. Omid Segundo MD PGY-2 Documentation for date of: 05/26/25 Subjective Subjective Interval history: Patient states he is feeling a little better today. Denies chest pain, shortness of breath, or new bleeding. Endorses ongoing fatigue but less than yesterday. No nausea or abdominal pain. No bowel movement since yesterday. Denies dizziness or lightheadedness. Exam Vital Signs Temp Pulse Resp BP Pulse Ox O2 Del Method O2 Flow Rate 98.3 F 103 H 25 H 122/75 91 L Nasal Cannula 4 05/26/25 12:00 05/26/25 13:57 05/26/25 13:57 05/26/25 16:00 05/26/25 16:00 05/26/25 12:00 05/26/25 12:00 Narrative Exam General: Uncomfortable, ill-appearing man. Neurologic: GCS 15. Alert and oriented x3, no gross neurological deficit, and patient able to move all 4 extremities. HEENT: Normocephalic, atraumatic, mucous membranes moist. Pupils reactive to light. Heart: Regular rate and rhythm, normal S1 and S2, no murmurs. Lungs: Clear to auscultation bilaterally with no wheezing or crackles, Chemo- Port right, Right Pleurx catheter. Abdomen: Firm abdomen, nondistended, nontender. No guarding or rebound tenderness. Extremities: No edema. 2+ radial and dorsalis pedis pulses bilaterally. Skin: Warm. Dry. No rash or ecchymoses. Objective Labs 05/27/25 04:34 05/27/25 04:34 Labs: Laboratory Results - last 24 hr 05/25/25 05/25/25 05/25/25 00:46 14:29 16:18 WBC RBC Hgb Hct MCV MCH MCHC RDW Std Deviation Plt Count Neut % (Auto) Lymph % (Auto) [place] % (Auto) Eos % (Auto) Baso % (Auto) Neut # (Auto) Lymph # (Auto) [place] # (Auto) Eos # (Auto) Baso # (Auto) Immature Gran # (Auto) Absolute Nucleated RBC Immature Gran % Neutrophils % (Manual) Monocytes % (Manual) Eosinophils % (Manual) Nucleated RBC % Band Neutrophils Lymphocytes (Manual) Poikilocytosis Macrocytosis Spherocytes Stomatocytes Acanthocytes (Spur) PT INR APTT Sodium Potassium Chloride Carbon Dioxide Anion Gap BUN Creatinine Estim Creat Clear Calc eGFR BUN/Creatinine Ratio Glucose Calculated Osmolality Calcium Corrected Calcium Phosphorus Magnesium Total Bilirubin AST ALT Alkaline Phosphatase Total Protein Albumin Globulin Albumin/Globulin Ratio TSH Ur Collection Type Cancelled Urine Color Cancelled Urine Clarity Cancelled Urine pH Cancelled Ur Specific [place] Cancelled Urine Protein Cancelled Urine Glucose (UA) Cancelled Urine Ketones Cancelled Urine Blood Cancelled Urine Nitrite Cancelled Urine Bilirubin Cancelled Urine Urobilinogen (Auto) Cancelled Ur Leukocyte Esterase Cancelled Urine RBC Cancelled Urine WBC Cancelled Ur Squamous Epith Cells Cancelled Ur Transition Epith Cell Cancelled Ur Renal Epithelial Cell Cancelled Calcium Carbonate Cryst Cancelled Calcium Phosphate Cryst Cancelled Calcium Oxalate Crystal Cancelled Leucine Crystals Cancelled Cystine Crystals Cancelled Uric Acid Crystals Cancelled Triple Phos Crystals Cancelled Tyrosine Crystals Cancelled Amorphous Crystals Cancelled Urine Bacteria Cancelled Cellular Casts Cancelled Epithelial Casts Cancelled Fatty Casts Cancelled Hyaline Casts Cancelled Granular Casts Cancelled Waxy Casts Cancelled Broad Casts Cancelled RBC Casts Cancelled Urine Mucus Cancelled Urine Trichomonas Cancelled Ur Yeast w [place]pha[place] Cancelled Urine Yeast (Budding) Cancelled Urine Sperm Cancelled Ur Oval Fat Bodies Cancelled Stool Occult Blood Positive A Blood Type A Positive Antibody Screen NEGATIVE Crossmatch See Detail Blood Bank Wristband ID Yes Blood Bank Comment PLATP Ready 05/26/25 05/26/25 06:55 16:46 WBC 8.2 RBC 2.64 L Hgb 7.9 L D 8.1 L Hct 22.6 L 23.1 L MCV 86 MCH 30.3 MCHC 35.4 RDW Std Deviation 55.7 H Plt Count 129 L D Neut % (Auto) 63 Lymph % (Auto) 16 [place] % (Auto) 10 Eos % (Auto) 2 Baso % (Auto) 1 Neut # (Auto) 5.2 Lymph # (Auto) 1.3 [place] # (Auto) 0.9 H Eos # (Auto) 0.1 Baso # (Auto) 0.1 Immature Gran # (Auto) 0.72 H Absolute Nucleated RBC 1.22 H Immature Gran % 9 H Neutrophils % (Manual) 74 H Monocytes % (Manual) 8 Eosinophils % (Manual) 2 Nucleated RBC % 15 H Band Neutrophils 3 Lymphocytes (Manual) 13 L Poikilocytosis 1+ Macrocytosis 1+ Spherocytes 1+ Stomatocytes 1+ Acanthocytes (Spur) 1+ A PT 14.2 H INR 1.3 APTT 39.8 H Sodium 138 Potassium 4.2 Chloride 100 Carbon Dioxide 29.7 Anion Gap 8 BUN 9 Creatinine 0.5 L Estim Creat Clear Calc 152.8 eGFR > 60 BUN/Creatinine Ratio 18 Glucose 109 H Calculated Osmolality 275 Calcium 8.7 Corrected Calcium 9.3 Phosphorus 3.3 Magnesium 1.5 L Total Bilirubin 2.6 H D AST 20 ALT 17 Alkaline Phosphatase 821 H D Total Protein 5.6 L Albumin 3.3 L Globulin 2.3 Albumin/Globulin Ratio 1.4 TSH 4.70 Ur Collection Type Urine Color Urine Clarity Urine pH Ur Specific [place] Urine Protein Urine Glucose (UA) Urine Ketones Urine Blood Urine Nitrite Urine Bilirubin Urine Urobilinogen (Auto) Ur Leukocyte Esterase Urine RBC Urine WBC Ur Squamous Epith Cells Ur Transition Epith Cell Ur Renal Epithelial Cell Calcium Carbonate Cryst Calcium Phosphate Cryst Calcium Oxalate Crystal Leucine Crystals Cystine Crystals Uric Acid Crystals Triple Phos Crystals Tyrosine Crystals Amorphous Crystals Urine Bacteria Cellular Casts Epithelial Casts Fatty Casts Hyaline Casts Granular Casts Waxy Casts Broad Casts RBC Casts Urine Mucus Urine Trichomonas Ur Yeast w [place]pha[place] Urine Yeast (Budding) Urine Sperm Ur Oval Fat Bodies Stool Occult Blood Blood Type Antibody Screen Crossmatch Blood Bank Wristband ID Blood Bank Comment Quality Measures Quality Measures VTE prophylaxis Assessment & Plan Assessment Current Active Medications: Generic Name Dose Route Start Last Admin Trade Name Freq PRN Reason Stop Dose Admin Acetaminophen 650 mg 05/25/25 17:42 Acetaminophen 325 Mg Tablet PO 06/24/25 17:41 Q6H PRN Fever >101.5 Acetaminophen 650 mg 05/25/25 17:42 Acetaminophen 325 Mg Tablet PO 06/24/25 17:41 Q6H PRN PAIN SCALE 1-3 (mild Hydrocodone Bitart/Acetaminophen 1 tab 05/25/25 17:42 05/26/25 05:19 Hydrocodone/Apap 10/325 Tab PO 05/30/25 17:41 1 tab Q4H PRN Administration PAIN SCALE 4-6 (Moderate Morphine Sulfate 2 mg 05/25/25 17:42 05/26/25 17:50 Morphine Sulf Inj 10 Mg/Ml Vial IVP 05/30/25 17:41 2 mg Q2H PRN Administration PAIN SCALE 7-10 (Severe Ondansetron HCl 4 mg 05/25/25 17:42 05/25/25 18:48 Ondansetron Inj 2 Mg/Ml Inj 2 Ml IVP 06/24/25 17:41 4 mg Q6H PRN Administration NAUSEA OR VOMITING Protocol Pantoprazole Sodium 40 mg 05/25/25 21:00 05/26/25 08:33 Pantoprazole Inj 40 Mg Vial IVP 06/24/25 20:59 40 mg Q12HR JUAN JOSE Administration Plan 49M with metastatic gastric cancer admitted for hemorrhagic shock secondary to GI bleed, now hemodynamically stable post-transfusion. Downgraded from ICU today. #HemorrhagicShock Hemodynamically unstable on admission (BP 90/57, HR 137) with Hgb 4.7 due to GI bleeding; now stable post-transfusion with Hgb improved to 7.9, INR 1.3, Plt 129 . Plan: * Monitor vitals; stable since overnight * No further transfusions at this time * Continue to trend CBC, coags qAM * Resume hospitalist-level monitoring #Acute GI Bleed (Melena) Patient reports 2 weeks of black tarry stools, with ongoing anemia and prior outpatient recommendation for capsule endoscopy. Nuclear med bleed scan negative (05/26), likely intermittent/slow bleed. Plan: * Continue IV Pantoprazole * GI to reevaluate for inpatient vs outpatient pill endoscopy * NPO for now; consider diet advancement if stable and no hematochezia #Normocytic Normochromic Anemia Likely multifactorial ? acute blood loss, malignancy-related. Hgb improved from 4.7 --> 7.9 after 3U PRBC. Plan: * Monitor for signs of ongoing bleeding * Recheck CBC this afternoon * Iron studies deferred due to active bleeding/malignancy #Thrombocytopenia Likely consumptive from bleeding + bone marrow suppression from cancer. Plt 36 ? 129 after 2U platelets. 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 Elevated CA 19-9, ALP 1050, T. bili 1.8. Patient was discharged on hospice 05/15, but returned due to weakness and bleeding. Plan: * Continue symptom management (nausea, pain) * Discuss goals of care with patient/ (note: previously opted for transfusion) * Follow-up with oncology during this admission #Coagulopathy Initial INR 1.6 --> now 1.3 after 1U FFP + vitamin K. No current evidence of DIC. Plan: * Continue to trend INR/PTT daily * Hold anticoagulation unless otherwise indicated #Pleural Effusion Secondary To Malignancy Stable right PleurX catheter in place. No signs of infection or worsening dyspnea. Plan: * Monitor for signs of pleuritic symptoms or drainage issues * No intervention needed currently Health Maintenance: Disposition: Downgraded from ICU --> Medicine floor; hospitalist service to continue care Feeding: NPO currently; consider diet advancement as tolerated if stable Thromboprophylaxis: SCDs only (active bleeding risk) GI prophylaxis: Continue IV Pantoprazole Code Status: Full Code ----- Plan discussed with attending physician Dr. Brantley and senior resident Dr. Isac MD PGY-1 Internal Medicine Attending Provider Attestation/Addendum I, Padmini Brantley DO, attest that I was physically present for the mclaughlin portions of the service and evaluated the patient with the resident and I reviewed and discussed the case with the resident and agree with the resident's findings and plans of care as documented above Patient is a 49-year-old male who was recently admitted for workup of anemia. Patient has metastatic malignancy likely from GI source. However, patient was recently discharged on hospice as patient wanted to go home rather than pursue further workup. Patient had undergone colonoscopy on last admission during which colon was seen throughout the colon all the way up to the ileocecal valve. Suspect that patient may have a small bowel lesion that is actively bleeding. Patient was brought back to the ED due to generalized weakness and black tarry stool. Patient does have a Pleurx catheter due to malignant pleural effusion in the right chest. However, the last time it was drained was about a week and a half ago during which minimal fluid was removed. Patient was admitted to ICU due to hypotension and received 3 units of PRBCs. GI was consulted and plans for undergoing endoscopy today. Patient remains n.p.o. at this time. Patient has been downgraded from ICU at this time as he remains stable after receiving transfusion. Hemoglobin currently 7.9. Patient remains on 2 L nasal cannula and is comfortable. He reports pain all over his body. Patient and family have opted to continue with further workup and may eventually need transfer if endoscopy is inconclusive.
[2025-05-27] VITALS (22 sets, daily range): BP systolic 105–119; BP diastolic 62–79; PULSE 86–115; RESP 16–95; TEMP 36.4–36.9; O2SAT 92–95; BMI 22.4
[2025-05-27] MEDS: MORPHINE SULF INJ 10 MG/ML VIAL 2 MG IVP ×3 (04:32→10:53)
[2025-05-27 05:25] LABS: Basophils # (Auto) 0.1 Thou/mm3 (0.0-0.2); Basophils % (Auto) 1 % (0-2.5); Eosinophils # (Auto) 0.2 Thou/mm3 (0.0-0.5); Eosinophils % (Auto) 2 % (0-10); Hematocrit 23.6 % (41.0-53.0); Immature Granulocytes Auto 0.71 Thou/mm3 (0.00-0.00); Lymphocytes # (Auto) 1.5 Thou/mm3 (1.0-4.8); Lymphocytes % (Auto) 16 % (10-50); Mean Corpuscular HGB Conc 33.5 g/dl (31.0-37.0); Mean Corpuscular Hemoglobin 30.0 pg (25.0-35.0); Mean Corpuscular Volume 90 fL (80-100); Monocytes # (Auto) 0.8 Thou/mm3 (0.0-0.8); Monocytes % (Auto) 9 % (0-12); Neutrophils # (Auto) 5.9 Thou/mm3 (1.8-7.7); Neutrophils % (Auto) 64 % (37-80); Nucleated Red Blood Cell # 0.72 Thou/mm3 (0.00-0.00); Nucleated Red Blood Cell % 8 /100 WBC (0); Platelet Count 93 Thou/mm3 (140-440); RDW Standard Deviation 64.4 fL (35.1-43.9); Red Blood Count 2.63 Miln/mm3 (4.50-5.90); White Blood Count 9.2 Thou/mm3 (3.8-10.6)
[2025-05-27 05:38] LABS: INR 1.3 (0.9-1.3); Partial Thromboplastin Time 41.0 Seconds (22.0-36.0); Prothrombin Time 14.1 Seconds (9.0-12.2)
[2025-05-27 05:43] LABS: Hemoglobin 7.9 g/dL (13.5-16.0)
[2025-05-27 06:01] LABS: Alanine Aminotransferase 10 U/L (10-49); Albumin, Serum 3.2 gm/dL (3.5-5.0); Albumin/Globulin Ratio 1.3 (1.2-2.2); Alkaline Phosphatase 881 U/L (46-116); Anion Gap 13 (7-16); Aspartate Amino Transferase 19 U/L (0-34); BUN/Creatinine Ratio 18 Ratio (12-20); Bilirubin,Total 3.1 mg/dL (0.3-1.2); Blood Urea Nitrogen 9 mg/dL (9-23); Calcium 8.6 mg/dL (8.3-10.6); Calcium (Corrected) 9.2 mg/dL (8.5-10.1); Carbon Dioxide 26.0 mMol/L (20.0-31.0); Chloride 98 mMol/L (98-107); Creatinine (Component) 0.5 mg/dL (0.6-1.3); Estimated Creatinine Clearance 152.8 mL/min (>60); Globulin 2.5 gm/dL (2.3-3.5); Glucose 97 mg/dL (74-106); Magnesium 1.5 mg/dL (1.6-2.6); Osmolality,Calculated 272 (275-295); Phosphorous 3.4 mg/dL (2.4-5.1); Potassium 3.8 mMol/L (3.4-5.1); Sodium 137 mMol/L (136-145); Total Protein 5.7 gm/dL (5.7-8.2); eGFR > 60 See Note
[2025-05-27 09:12] LABS: Anisocytosis 1+; Band Neutrophils (Manual) 8 % (0-6); Eosinophils (Manual) 2 % (0-4); Lymphocytes (Manual) 14 % (20-44); Macrocytosis 1+; Monocytes (Manual) 6 % (2-9); Neutrophils (Manual) 70 % (50-70)
--- NOTE | 2025-05-27 09:30 | PC.PT ---
PT confirmed with GUERDA Nicolas that patient is on hospice. Patient is not a candidate for skilled PT intervention at this time as patient is on hospice. Will cancel PT eval.
--- NOTE | 2025-05-27 10:13 | PC.CC ---
Addendum entered by Zain Lee RN 05/27/25 16:42: 1640 [facility] not able to accept transfer due to capacity. Recommended to call back in 12-24 hours to review status. Addendum entered by Zain Lee RN 05/27/25 12:38: 1230 Clinicals sent to [facility] for review. Addendum entered by Zain Lee RN 05/27/25 12:18: [address] [facility] referreal center, left patient, transfer information as requested. Per referral center [facility] is currently at 111% capacity. Addendum entered by Zain Lee RN 05/27/25 10:44: 1040 Sent clinicals to [facility] via fax. Will contact [facility] once fax is confirmed. Original Note: [address] Segundo to confirm need for transfer for small bowel bleed. GI services needed for capsule endoscopy. Patient actively bleeding requiring blood transfusions. Patient stable for transfer at this time.
[2025-05-27] MEDS: Magnesium Sulfate 4 GM Ivpb 4 GM/50 ML BAG IV (10:53)
--- NOTE | 2025-05-27 11:20 | PC.DIETICIAN ---
Dietitian note: Patient meets ASPEN criteria for severe acute or chronic disease or condition related malnutrition due to significant wt loss and poor oral intake x last 3-4months Thank you
--- NOTE | 2025-05-27 13:28 | ESPR_ITS ---
<Statement entered by Omid Segundo MD - 05/27/25 15:40> Patient seen and examined at bedside. I discussed and supervised with the trestle mainternance laborer physician who took care of this patient. I personally saw and examined the patient. I agree with most of the assessment and plan. Patient unable to tolerate EGD, terminated early. Extensive goals of care conversation held with family and patient, who wish to proceed with further workup. Plan to transfer patient to higher level of care for capsule endoscopy. Plan of care discussed with attending Dr. Brantley. Omid Segundo MD PGY-2 Documentation for date of: 05/27/25 Subjective Subjective Interval history: Patient states he feels about the same today. No new bleeding, denies chest pain, shortness of breath, or dizziness. Endorses fatigue. Patient and family have been informed about transfer for capsule endoscopy and are in agreement. Exam Vital Signs Temp Pulse Resp BP Pulse Ox O2 Del Method O2 Flow Rate 97.6 F 115 H 19 111/74 92 L Nasal Cannula 4 05/27/25 12:00 05/27/25 12:00 05/27/25 12:00 05/27/25 12:00 05/27/25 12:05/27/25 12:00 05/27/25 12:00 Narrative Exam General: Uncomfortable, ill-appearing man. Neurologic: GCS 15. Alert and oriented x3, no gross neurological deficit, and patient able to move all 4 extremities. HEENT: Normocephalic, atraumatic, mucous membranes moist. Pupils reactive to light. Heart: Regular rate and rhythm, normal S1 and S2, no murmurs. Lungs: Clear to auscultation bilaterally with no wheezing or crackles, Chemo- Port right, Right Pleurx catheter. Abdomen: Firm abdomen, nondistended, nontender. No guarding or rebound tenderness. Extremities: No edema. 2+ radial and dorsalis pedis pulses bilaterally. Skin: Warm. Dry. No rash or ecchymoses. Objective Labs 05/27/25 04:34 05/27/25 04:34 Labs: Laboratory Results - last 24 hr 05/26/25 05/27/25 16:46 04:34 WBC 9.2 RBC 2.63 L Hgb 8.1 L 7.9 L Hct 23.1 L 23.6 L MCV 90 MCH 30.0 MCHC 33.5 RDW Std Deviation 64.4 H Plt Count 93 L D Neut % (Auto) 64 Lymph % (Auto) 16 [place] % (Auto) 9 Eos % (Auto) 2 Baso % (Auto) 1 Neut # (Auto) 5.9 Lymph # (Auto) 1.5 [place] # (Auto) 0.8 Eos # (Auto) 0.2 Baso # (Auto) 0.1 Immature Gran # (Auto) 0.71 H Absolute Nucleated RBC 0.72 H Immature Gran % 8 H Neutrophils % (Manual) 70 Monocytes % (Manual) 6 Eosinophils % (Manual) 2 Nucleated RBC % 8 H Band Neutrophils 8 H D Lymphocytes (Manual) 14 L Anisocytosis 1+ Macrocytosis 1+ PT 14.1 H INR 1.3 APTT 41.0 H Sodium 137 Potassium 3.8 Chloride 98 Carbon Dioxide 26.0 Anion Gap 13 BUN 9 Creatinine 0.5 L Estim Creat Clear Calc 152.8 eGFR > 60 BUN/Creatinine Ratio 18 Glucose 97 Calculated Osmolality 272 L Calcium 8.6 Corrected Calcium 9.2 Phosphorus 3.4 Magnesium 1.5 L Total Bilirubin 3.1 H D AST 19 ALT 10 Alkaline Phosphatase 881 H D Total Protein 5.7 Albumin 3.2 L Globulin 2.5 Albumin/Globulin Ratio 1.3 Quality Measures Quality Measures VTE prophylaxis Assessment & Plan Assessment Current Active Medications: Generic Name Dose Route Start Last Admin Trade Name Freq PRN Reason Stop Dose Admin Acetaminophen 650 mg 05/25/25 17:42 Acetaminophen 325 Mg Tablet PO 06/24/25 17:41 Q6H PRN Fever >101.5 Acetaminophen 650 mg 05/25/25 17:42 Acetaminophen 325 Mg Tablet PO 06/24/25 17:41 Q6H PRN PAIN SCALE 1-3 (mild Hydrocodone Bitart/Acetaminophen 1 tab 05/25/25 17:42 05/26/25 05:19 Hydrocodone/Apap 10/325 Tab PO 05/30/25 17:41 1 tab Q4H PRN Administration PAIN SCALE 4-6 (Moderate Magnesium Sulfate 4 gm in 50 mls @ 12.5 mls/hr 05/27/25 10:29 05/27/25 10:53 Magnesium Sulfate Ivpb IV 05/27/25 14:28 12.5 mls/hr X1 ONE Administration Morphine Sulfate 10 mg 05/27/25 11:25 Morphine Sulf Liqd 10 Mg/5 Ml Udc PO 06/01/25 11:24 Q4HR PRN PAIN SCALE 7-10 (Severe Ondansetron HCl 4 mg 05/25/25 17:42 05/25/25 18:48 Ondansetron Inj 2 Mg/Ml Inj 2 Ml IVP 06/24/25 17:41 4 mg Q6H PRN Administration NAUSEA OR VOMITING Protocol Pantoprazole Sodium 40 mg 05/25/25 21:00 05/27/25 08:54 Pantoprazole Inj 40 Mg Vial IVP 06/24/25 20:59 40 mg Q12HR JUAN JOSE Administration Plan 49M with metastatic GI cancer and recent GI bleed, downgraded from ICU, now stable post-transfusion; pending transfer for capsule endoscopy with patient and family in agreement. #Hemorrhagic Shock Hemodynamically unstable on admission (BP 90/57, HR 137) with Hgb 4.7 due to GI bleeding; now stable post-transfusion with Hgb improved to 7.9, INR 1.3, Plt 93. Plan: * Monitor vitals; stable since overnight * No further transfusions at this time * Continue to trend CBC, coags qAM * Resume hospitalist-level monitoring #Acute GI Bleed (Melena) Patient reports 2 weeks of black tarry stools; concern for ongoing GI bleed. Nuclear med scan negative, and EGD performed showed normal esophagus, mild gastritis, and normal duodenum to mid-third portion; no source of bleeding identified. Procedure stopped early due to tachycardia. Plan: * Continue IV Pantoprazole * Monitor for signs of rebleeding * Transfer initiated to outside facility for capsule endoscopy as recommended by GI * Patient and family informed and in agreement #Normocytic Normochromic Anemia Likely multifactorial ? acute blood loss, malignancy-related. Hgb improved from 4.7 --> 7.9 after 3U PRBC. Plan: * Monitor for signs of ongoing bleeding * Recheck CBC this afternoon * Iron studies deferred due to active bleeding/malignancy #Thrombocytopenia Likely consumptive from bleeding + bone marrow suppression from cancer. Plt 36 ? 129 after 2U platelets. 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 Elevated CA 19-9, ALP 1050, T. bili 1.8. Patient was discharged on hospice 05/15, but returned due to weakness and bleeding. Plan: * Continue symptom management (nausea, pain) * Discuss goals of care with patient/ (note: previously opted for transfusion) * Follow-up with oncology during this admission #Coagulopathy Initial INR 1.6 --> now 1.3 after 1U FFP + vitamin K. No current evidence of DIC. Plan: * Continue to trend INR/PTT daily * Hold anticoagulation unless otherwise indicated #Pleural Effusion Secondary To Malignancy Stable right PleurX catheter in place. No signs of infection or worsening dyspnea. Plan: * Monitor for signs of pleuritic symptoms or drainage issues * No intervention needed currently Health Maintenance: Disposition: Downgraded from ICU --> Pending transfer to outside facility for capsule endoscopy not available in-house; transfer process initiated, awaiting acceptance. Patient and family notified and in agreement. Feeding: Regular diet Thromboprophylaxis: SCDs only (active bleeding risk) GI prophylaxis: Continue IV Pantoprazole Code Status: Full Code ----- Plan discussed with attending physician Dr. Brantley and senior resident Dr. Isac MD PGY-1 Internal Medicine Attending Provider Attestation/Addendum I, Padmini Brantley DO, attest that I was physically present for the mclaughlin portions of the service and evaluated the patient with the resident and I reviewed and discussed the case with the resident and agree with the resident's findings and plans of care as documented above Patient seen and eval this a.m. He states that he has been having a lot of pain despite receiving morphine 2 mg IV every 2 hours. He denies any shortness of breath and remains on 2 L nasal cannula at this time. Patient has been using morphine as needed as well as Dilaudid and Ativan at home. Family states that they would like more answers for some closure. I had a family meeting with the patient's daughter, Rosana, and patient's at bedside. They have stated that seeing the patient on hospice has been very overwhelming. They are hopeful and would like more answers as to patient's diagnosis of malignancy. states that chemo was never offered. However, explained to family that they chemotherapy cannot be done unless we have unknown tissue diagnosis so that therapy can be targeted. However, for this reason, patient would like to further undergo workup. He underwent endoscopy yesterday during which patient was found to have normal esophagus, gastritis and normal fourth portion of duodenum. However, patient became tachycardic and procedure was aborted. I discussed case with GI over the phone who recommended transfer for higher level of care so that patient can undergo capsule endoscopy and further workup. Patient is agreeable to plan. Transfer has been initiated. Will follow-up with hemoglobin due to persistent anemia and pain control as needed.
[2025-05-27] MEDS: MORPHINE SULF LIQD 10 MG/5 ML UDC PO ×3 (14:00→22:14)
--- NOTE | 2025-05-27 22:47 | PD.IMPROG ---
Documentation for date of: 05/27/25 Subjective Subjective Interval history: Patient evaluated Hemoglobin hematocrit 7.9 and 23.6 Upper endoscopy was normal all the way up to the mid jejunum procedure stopped after patient became very tachycardic Exam Vital Signs Temp Pulse Resp BP Pulse Ox O2 Del Method O2 Flow Rate 97.7 F 86 16 105/67 93 L Nasal Cannula 4 05/27/25 20:00 05/27/25 20:00 05/27/25 20:00 05/27/25 20:00 05/27/25 20:00 05/27/25 20:00 05/27/25 12:00 Objective Labs 05/27/25 04:34 05/27/25 04:34 Labs: Laboratory Results - last 24 hr 05/27/25 04:34 WBC 9.2 RBC 2.63 L Hgb 7.9 L Hct 23.6 L MCV 90 MCH 30.0 MCHC 33.5 RDW Std Deviation 64.4 H Plt Count 93 L D Neut % (Auto) 64 Lymph % (Auto) 16 [place] % (Auto) 9 Eos % (Auto) 2 Baso % (Auto) 1 Neut # (Auto) 5.9 Lymph # (Auto) 1.5 [place] # (Auto) 0.8 Eos # (Auto) 0.2 Baso # (Auto) 0.1 Immature Gran # (Auto) 0.71 H Absolute Nucleated RBC 0.72 H Immature Gran % 8 H Neutrophils % (Manual) 70 Monocytes % (Manual) 6 Eosinophils % (Manual) 2 Nucleated RBC % 8 H Band Neutrophils 8 H D Lymphocytes (Manual) 14 L Anisocytosis 1+ Macrocytosis 1+ PT 14.1 H INR 1.3 APTT 41.0 H Sodium 137 Potassium 3.8 Chloride 98 Carbon Dioxide 26.0 Anion Gap 13 BUN 9 Creatinine 0.5 L Estim Creat Clear Calc 152.8 eGFR > 60 BUN/Creatinine Ratio 18 Glucose 97 Calculated Osmolality 272 L Calcium 8.6 Corrected Calcium 9.2 Phosphorus 3.4 Magnesium 1.5 L Total Bilirubin 3.1 H D AST 19 ALT 10 Alkaline Phosphatase 881 H D Total Protein 5.7 Albumin 3.2 L Globulin 2.5 Albumin/Globulin Ratio 1.3 Impressions Impression: Occult GI bleeding Metastatic carcinoma Recommend referral to a tertiary center for oncological care and possible capsule endoscopy Assessment & Plan A&P Narrative 1. Suspected small bowel malignancy with active bleeding admitted with transfusions and other supportive care. 2. Briefly opted for hospice care but now admitted seeking regular care. 3. Nuclear medicine GI bleeding scan pending. Time Spent With Patient Time: Total time spent is greater than 50% in coordination of care (as documented) at patient's floor/unit and/or counseling patient:
[2025-05-28] VITALS (13 sets, daily range): BP systolic 102–116; BP diastolic 70–81; PULSE 100–109; RESP 14–96; TEMP 36.2–37.1; O2SAT 90–95
[2025-05-28] MEDS: MORPHINE SULF LIQD 10 MG/5 ML UDC PO ×2 (05:07→17:01)
[2025-05-28 06:26] LABS: Basophils # (Auto) 0.1 Thou/mm3 (0.0-0.2); Basophils % (Auto) 1 % (0-2.5); Eosinophils # (Auto) 0.2 Thou/mm3 (0.0-0.5); Eosinophils % (Auto) 2 % (0-10); Hematocrit 21.7 % (41.0-53.0); Immature Granulocytes Auto 0.60 Thou/mm3 (0.00-0.00); Lymphocytes # (Auto) 1.5 Thou/mm3 (1.0-4.8); Lymphocytes % (Auto) 18 % (10-50); Mean Corpuscular HGB Conc 33.6 g/dl (31.0-37.0); Mean Corpuscular Hemoglobin 30.0 pg (25.0-35.0); Mean Corpuscular Volume 89 fL (80-100); Monocytes # (Auto) 0.7 Thou/mm3 (0.0-0.8); Monocytes % (Auto) 8 % (0-12); Neutrophils # (Auto) 5.3 Thou/mm3 (1.8-7.7); Neutrophils % (Auto) 64 % (37-80); Nucleated Red Blood Cell # 0.51 Thou/mm3 (0.00-0.00); Nucleated Red Blood Cell % 6 /100 WBC (0); RDW Standard Deviation 66.4 fL (35.1-43.9); Red Blood Count 2.43 Miln/mm3 (4.50-5.90); White Blood Count 8.3 Thou/mm3 (3.8-10.6)
[2025-05-28 06:40] LABS: INR 1.3 (0.9-1.3); Partial Thromboplastin Time 41.4 Seconds (22.0-36.0); Prothrombin Time 14.0 Seconds (9.0-12.2)
[2025-05-28 06:43] LABS: Hemoglobin 7.3 g/dL (13.5-16.0); Platelet Count 66 Thou/mm3 (140-440)
[2025-05-28 07:36] LABS: Alanine Aminotransferase 8 U/L (10-49); Albumin, Serum 3.2 gm/dL (3.5-5.0); Anion Gap 8 (7-16); Aspartate Amino Transferase 17 U/L (0-34); BUN/Creatinine Ratio 23 Ratio (12-20); Bilirubin,Total 2.9 mg/dL (0.3-1.2); Blood Urea Nitrogen 9 mg/dL (9-23); Calcium 8.2 mg/dL (8.3-10.6); Calcium (Corrected) 8.8 mg/dL (8.5-10.1); Carbon Dioxide 28.7 mMol/L (20.0-31.0); Chloride 99 mMol/L (98-107); Creatinine (Component) 0.4 mg/dL (0.6-1.3); Estimated Creatinine Clearance 185.0 mL/min (>60); Globulin 2.5 gm/dL (2.3-3.5); Glucose 115 mg/dL (74-106); Magnesium 1.5 mg/dL (1.6-2.6); Osmolality,Calculated 271 (275-295); Phosphorous 3.3 mg/dL (2.4-5.1); Potassium 3.5 mMol/L (3.4-5.1); Sodium 136 mMol/L (136-145); Total Protein 5.7 gm/dL (5.7-8.2); eGFR > 60 See Note
[2025-05-28 07:37] LABS: Albumin/Globulin Ratio 1.3 (1.2-2.2); Alkaline Phosphatase 929 U/L (46-116)
[2025-05-28 08:36] LABS: Slide Review Platelets confirmed
--- NOTE | 2025-05-28 09:47 | PC.SS ---
SS follow up note; Patient is pending HLOC. patient is getting 1 Unit of blood.
--- NOTE | 2025-05-28 09:57 | PC.NURSE ---
pharmacy to bring up mag for pt
--- NOTE | 2025-05-28 10:10 | PC.CM ---
Addendum entered by Kerri Medley RN 05/28/25 15:23: [facility] reviewing patient at this time. Addendum entered by Kerri Medley RN 05/28/25 13:28: 1150 I received a call from the finance department at [facility]. She asked they I get authorization from patients insurance. I let her know I would need an accepting doctor to initiate an authorization request with patient's insurance. I let the finance dept. at [facility] know I will wait to hear from transfer center at [facility] to see if we have an accepting MD. Original Note: I initiated transfer to [facility]. I spoke to Alla and I a gave report on patient. She was going to present it to their nurse for review. I faxed over information to [facility]. Patient needs capsule endoscopy. Patient was declined by [facility] and [facility] due to capacity.
[2025-05-28] MEDS: Magnesium Sulfate 4 GM Ivpb 4 GM/50 ML BAG IV (10:41)
[2025-05-28] MEDS: ACETAMINOPHEN 325 MG TABLET 650 MG PO (10:46)
--- NOTE | 2025-05-28 10:50 | PC.NURSE ---
DISCHARGE ORDER ADDED THIS MORNING ETA FOR TRANSFER TO [facility] AT 1300.
--- NOTE | 2025-05-28 14:44 | ESPR_ITS ---
<Statement entered by Pedro Valerio MD - 06/01/25 08:03> I reviewed above note and agree with findings and plans. I have also personally examined the patient with medicine team and went over assessment and plan with medical team including internet project manager and resident physician. <Statement entered by Omid Segundo MD - 05/28/25 15:25> Patient seen and examined at bedside. I discussed and supervised with the internet project manager physician who took care of this patient. I personally saw and examined the patient. I agree with most of the assessment and plan. Patient pending transfer to higher level of care for small bowel capsule endoscopy and further management. Hemoglobin stable today, transfusing 1 unit PRBC today. PleurX cath in place, patient has R pleural effusion on imaging, will consider drainage if patient develops respiratory distress. Hold off for now due to risk of patient destabilizing, and high risk of bleed. Plan of care discussed with attending Dr. Valerio. Omid Segundo MD PGY-2 Documentation for date of: 05/28/25 Subjective Subjective Interval history: Patient feels about the same as yesterday. Pain is better and controlled with current regimen. Denies bleeding, nausea, or vomiting. Reports eating well and no issues with swallowing. Aware of and agreeable to transfer. Exam Vital Signs Temp Pulse Resp BP Pulse Ox O2 Del Method O2 Flow Rate 97.2 F 103 H 16 102/70 90 L Nasal Cannula 4 05/28/25 12:00 05/28/25 12:48 05/28/25 12:48 05/28/25 12:00 05/28/25 12:00 05/28/25 12:00 05/28/25 12:48 Narrative Exam General: Uncomfortable, ill-appearing man. Neurologic: GCS 15. Alert and oriented x3, no gross neurological deficit, and patient able to move all 4 extremities. HEENT: Normocephalic, atraumatic, mucous membranes moist. Pupils reactive to light. Heart: Regular rate and rhythm, normal S1 and S2, no murmurs. Lungs: Clear to auscultation bilaterally with no wheezing or crackles, Chemo- Port right, Right Pleurx catheter. Abdomen: Firm abdomen, nondistended, nontender. No guarding or rebound tenderness. Extremities: No edema. 2+ radial and dorsalis pedis pulses bilaterally. Skin: Warm. Dry. No rash or ecchymoses. Objective Labs 05/28/25 05:32 05/28/25 05:32 Labs: Laboratory Results - last 24 hr 05/28/25 05/28/25 05:32 09:30 WBC 8.3 RBC 2.43 L Hgb 7.3 L Hct 21.7 L* MCV 89 MCH 30.0 MCHC 33.6 RDW Std Deviation 66.4 H Plt Count 66 L D Neut % (Auto) 64 Lymph % (Auto) 18 [place] % (Auto) 8 Eos % (Auto) 2 Baso % (Auto) 1 Neut # (Auto) 5.3 Lymph # (Auto) 1.5 [place] # (Auto) 0.7 Eos # (Auto) 0.2 Baso # (Auto) 0.1 Immature Gran # (Auto) 0.60 H Absolute Nucleated RBC 0.51 H Immature Gran % 7 H Nucleated RBC % 6 H PT 14.0 H INR 1.3 APTT 41.4 H Sodium 136 Potassium 3.5 Chloride 99 Carbon Dioxide 28.7 Anion Gap 8 BUN 9 Creatinine 0.4 L Estim Creat Clear Calc 185.0 eGFR > 60 BUN/Creatinine Ratio 23 H Glucose 115 H Calculated Osmolality 271 L Calcium 8.2 L Corrected Calcium 8.8 Phosphorus 3.3 Magnesium 1.5 L Total Bilirubin 2.9 H AST 17 ALT 8 L Alkaline Phosphatase 929 H D Total Protein 5.7 Albumin 3.2 L Globulin 2.5 Albumin/Globulin Ratio 1.3 Misc Test Result Platelets confirmed Blood Type A Positive Antibody Screen NEGATIVE Crossmatch See Detail Blood Bank Wristband ID Yes Quality Measures Quality Measures VTE prophylaxis Assessment & Plan Assessment Current Active Medications: Generic Name Dose Route Start Last Admin Trade Name Freq PRN Reason Stop Dose Admin Acetaminophen 650 mg 05/25/25 17:42 Acetaminophen 325 Mg Tablet PO 06/24/25 17:41 Q6H PRN Fever >101.5 Acetaminophen 650 mg 05/25/25 17:42 05/28/25 10:46 Acetaminophen 325 Mg Tablet PO 06/24/25 17:41 650 mg Q6H PRN Administration PAIN SCALE 1-3 (mild Hydrocodone Bitart/Acetaminophen 1 tab 05/25/25 17:42 05/28/25 08:20 Hydrocodone/Apap 10/325 Tab PO 05/30/25 17:41 1 tab Q4H PRN Administration PAIN SCALE 4-6 (Moderate Morphine Sulfate 10 mg 05/27/25 11:25 05/28/25 05:07 Morphine Sulf Liqd 10 Mg/5 Ml Udc PO 06/01/25 11:24 10 mg Q4HR PRN Administration PAIN SCALE 7-10 (Severe Ondansetron HCl 4 mg 05/25/25 17:42 05/25/25 18:48 Ondansetron Inj 2 Mg/Ml Inj 2 Ml IVP 06/24/25 17:41 4 mg Q6H PRN Administration NAUSEA OR VOMITING Protocol Pantoprazole Sodium 40 mg 05/25/25 21:00 05/28/25 08:20 Pantoprazole Inj 40 Mg Vial IVP 06/24/25 20:59 40 mg Q12HR JUAN JOSE Administration Plan 49M with metastatic GI cancer and recent GI bleed, downgraded from ICU, now stable post-transfusion; pending transfer for capsule endoscopy with patient and family in agreement. #Hemorrhagic Shock Hemodynamically unstable on admission (BP 90/57, HR 137) with Hgb 4.7 due to GI bleeding; now stable post-transfusion with Hgb improved to 7.9, INR 1.3, Plt 93. Initial GI bleed with Hgb 4.7, now stable post-transfusion but Hgb trended down again to 7.3 with Plt 93 --> 66 --> 93. Plan: * Transfused 1U PRBC this morning * Monitor vitals and reassess Hgb/Plt later today * Hold anticoagulation * Maintain IV access #Acute GI Bleed (Melena) Patient reports 2 weeks of black tarry stools; concern for ongoing GI bleed. Nuclear med scan negative, and EGD performed showed normal esophagus, mild gastritis, and normal duodenum to mid-third portion; no source of bleeding identified. Procedure stopped early due to tachycardia. Plan: * Continue IV Pantoprazole * Monitor for signs of rebleeding * Transfer initiated to outside facility for capsule endoscopy as recommended by GI * Patient and family informed and in agreement #Normocytic Normochromic Anemia Hgb improved to 7.9 but now down to 7.3, likely ongoing slow bleed Plan: * 1U PRBC given this morning * Follow-up CBC q6-8h * Consider iron therapy only if bleeding stops #Thrombocytopenia Likely consumptive from bleeding + bone marrow suppression from cancer. 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 Elevated CA 19-9, ALP 1050, T. bili 1.8. Patient was discharged on hospice 05/15, but returned due to weakness and bleeding. Plan: * Continue symptom management (nausea, pain) * Discuss goals of care with patient/ (note: previously opted for transfusion) * Follow-up with oncology during this admission #Coagulopathy Initial INR 1.6 --> now 1.3 after 1U FFP + vitamin K. No current evidence of DIC. Plan: * Continue to trend INR/PTT daily * Hold anticoagulation unless otherwise indicated #Pleural Effusion Secondary To Malignancy Stable right PleurX catheter in place. No signs of infection or worsening dyspnea. Plan: * Monitor for signs of pleuritic symptoms or drainage issues * No intervention needed currently Health Maintenance: Disposition: Downgraded from ICU --> Pending transfer to outside facility for capsule endoscopy not available in-house; transfer process initiated, awaiting acceptance. Patient and family notified and in agreement. Feeding: Regular diet Thromboprophylaxis: SCDs only GI prophylaxis: Continue IV Pantoprazole Code Status: Full Code ----- Plan discussed with attending physician Dr. Valerio and senior resident Dr. Isac MD PGY-1 Internal Medicine
[2025-05-28] MEDS: DICYCLOMINE 10 MG CAPSULE PO (18:08)
--- NOTE | 2025-05-28 18:37 | ESPR_ITS ---
Documentation for date of: 05/28/25 Subjective Subjective Interval history: Hemoglobin hematocrit 7.3 and 21.7 Upper endoscopy normal up to mid jejunum transfer In progress to a tertiary center Exam Vital Signs Temp Pulse Resp BP Pulse Ox O2 Del Method O2 Flow Rate 98.3 F 108 H 17 113/78 93 L Nasal Cannula 5 05/28/25 17:23 05/28/25 17:23 05/28/25 17:23 05/28/25 17:23 05/28/25 17:23 05/28/25 16:00 05/28/25 17:23 Objective Labs 05/28/25 05:32 05/28/25 05:32 Labs: Laboratory Results - last 24 hr 05/28/25 05/28/25 05:32 09:30 WBC 8.3 RBC 2.43 L Hgb 7.3 L Hct 21.7 L* MCV 89 MCH 30.0 MCHC 33.6 RDW Std Deviation 66.4 H Plt Count 66 L D Neut % (Auto) 64 Lymph % (Auto) 18 [place] % (Auto) 8 Eos % (Auto) 2 Baso % (Auto) 1 Neut # (Auto) 5.3 Lymph # (Auto) 1.5 [place] # (Auto) 0.7 Eos # (Auto) 0.2 Baso # (Auto) 0.1 Immature Gran # (Auto) 0.60 H Absolute Nucleated RBC 0.51 H Immature Gran % 7 H Nucleated RBC % 6 H PT 14.0 H INR 1.3 APTT 41.4 H Sodium 136 Potassium 3.5 Chloride 99 Carbon Dioxide 28.7 Anion Gap 8 BUN 9 Creatinine 0.4 L Estim Creat Clear Calc 185.0 eGFR > 60 BUN/Creatinine Ratio 23 H Glucose 115 H Calculated Osmolality 271 L Calcium 8.2 L Corrected Calcium 8.8 Phosphorus 3.3 Magnesium 1.5 L Total Bilirubin 2.9 H AST 17 ALT 8 L Alkaline Phosphatase 929 H D Total Protein 5.7 Albumin 3.2 L Globulin 2.5 Albumin/Globulin Ratio 1.3 Misc Test Result Platelets confirmed Blood Type A Positive Antibody Screen NEGATIVE Crossmatch See Detail Blood Bank Wristband ID Yes Impressions Impression: Occult GI bleeding Anemia blood loss 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 Suspected small bowel malignancy with active bleeding admitted with transfusions and other supportive care. 2. Briefly opted for hospice care but now admitted seeking regular care. 3. Nuclear medicine GI bleeding scan pending. Time Spent With Patient Time: Total time spent is greater than 50% in coordination of care (as documented) at patient's floor/unit and/or counseling patient:
[2025-05-28 21:06] LABS: Hematocrit 25.6 % (41.0-53.0)
[2025-05-28 21:10] LABS: Hemoglobin 8.4 g/dL (13.5-16.0)
[2025-05-29] VITALS (8 sets, daily range): BP systolic 108–128; BP diastolic 71–88; PULSE 103–120; RESP 16–92; TEMP 36.2–37.2; O2SAT 89–92; BMI 22.4
[2025-05-29] MEDS: MORPHINE SULF LIQD 10 MG/5 ML UDC PO ×4 (04:41→19:52)
[2025-05-29 05:00] LABS: Collection Type, Urine Voided; Squamous Epithelial Cell,Urine 0 /hpf (0-5)
[2025-05-29 05:03] LABS: Bilirubin,Urine Negative (Negative); Blood,Urine Negative (Negative); Clarity,Urine Clear (Clear/Hazy); Color,Urine Yellow (Lt Yel-Yel); Glucose, Urine Negative (Negative); Ketones,Urine Negative (Negative); Leukocyte Esterase,Urine Negative (Negative); Nitrite,Urine Negative (Negative); PH,Urine 7.0 (5.0-7.0); Protein,Urine Negative (Neg - Trace); RBC,Urine < 1 /hpf (0-3); Specific Gravity,Urine 1.007 (1.001-1.035); Urobilinogen,Urine 3.0 mg/dL (0.0-1.0); WBC,Urine < 1 /hpf (0-5)
[2025-05-29 05:25] LABS: Basophils # (Auto) 0.1 Thou/mm3 (0.0-0.2); Basophils % (Auto) 1 % (0-2.5); Eosinophils # (Auto) 0.3 Thou/mm3 (0.0-0.5); Eosinophils % (Auto) 4 % (0-10); Hematocrit 22.9 % (41.0-53.0); Immature Granulocytes Auto 0.52 Thou/mm3 (0.00-0.00); Lymphocytes # (Auto) 1.2 Thou/mm3 (1.0-4.8); Lymphocytes % (Auto) 15 % (10-50); Mean Corpuscular HGB Conc 34.1 g/dl (31.0-37.0); Mean Corpuscular Hemoglobin 30.4 pg (25.0-35.0); Mean Corpuscular Volume 89 fL (80-100); Monocytes # (Auto) 0.8 Thou/mm3 (0.0-0.8); Monocytes % (Auto) 10 % (0-12); Neutrophils # (Auto) 5.3 Thou/mm3 (1.8-7.7); Neutrophils % (Auto) 65 % (37-80); Nucleated Red Blood Cell # 0.45 Thou/mm3 (0.00-0.00); Nucleated Red Blood Cell % 6 /100 WBC (0); RDW Standard Deviation 62.8 fL (35.1-43.9); Red Blood Count 2.57 Miln/mm3 (4.50-5.90); White Blood Count 8.2 Thou/mm3 (3.8-10.6)
[2025-05-29 05:31] LABS: Hemoglobin 7.8 g/dL (13.5-16.0); Platelet Count 51 Thou/mm3 (140-440)
[2025-05-29 06:41] LABS: Alanine Aminotransferase 7 U/L (10-49); Albumin, Serum 3.2 gm/dL (3.5-5.0); Albumin/Globulin Ratio 1.4 (1.2-2.2); Alkaline Phosphatase 940 U/L (46-116); Anion Gap 11 (7-16); Aspartate Amino Transferase 17 U/L (0-34); BUN/Creatinine Ratio 20 Ratio (12-20); Bilirubin,Total 1.9 mg/dL (0.3-1.2); Blood Urea Nitrogen 8 mg/dL (9-23); Calcium 8.5 mg/dL (8.3-10.6); Calcium (Corrected) 9.1 mg/dL (8.5-10.1); Carbon Dioxide 28.2 mMol/L (20.0-31.0); Chloride 98 mMol/L (98-107); Creatinine (Component) 0.4 mg/dL (0.6-1.3); Estimated Creatinine Clearance 185.0 mL/min (>60); Globulin 2.3 gm/dL (2.3-3.5); Glucose 109 mg/dL (74-106); Magnesium 1.9 mg/dL (1.6-2.6); Osmolality,Calculated 273 (275-295); Phosphorous 3.6 mg/dL (2.4-5.1); Potassium 4.0 mMol/L (3.4-5.1); Sodium 137 mMol/L (136-145); Total Protein 5.5 gm/dL (5.7-8.2); eGFR > 60 See Note
--- NOTE | 2025-05-29 07:15 | PC.CC ---
Addendum entered by Terrie Levin RN 05/29/25 18:57: 1850 - received call from Renetta with [facility] informing us that Dr Lowery wants the MR enterography before they can accept the pt. Will f/u in the morning. Addendum entered by Terrie Levin RN 05/29/25 17:09: 1702 - Called [facility], spoke with Ellie for Dr Stoddard to inform Dr Lowery that Dr Stoddard does not feel the pt is obstructed because he is having BMs, no nausea and no abd distension. [facility] is requesting an MR enterography before accepting the transfer; our MRI machine is currently down - awaiting response from the structural engineering project manager and there is no MRI coverage for tomorrow 05/30/25. 1654 - Dr Lowery called back to speak with Dr Stoddard, call was transferred. Addendum entered by Terrie Levin RN 05/29/25 16:44: 1436 - received called from Radha at [facility] for [id number] between Dr Stoddard and [facility] hospitalist Dr Eastman. Dr Eastman will call back after consultation w/GI team. Addendum entered by Terrie Levin RN 05/29/25 10:55: 1052 received call from Heydi at [facility]. Transfer is declined due to capacity. 1046 received call from [facility], spoke to Ellie and gave verbal clinicals. Addendum entered by Terrie Levin RN 05/29/25 10:43: 1041 received call from Willie at [facility]. He stated he ran the case by his medical data analyst and the patient is denied because [facility] is not the contracted facility with patient insurance, also their [facility] doesn't have GI. Therefore, transfer is declined. Addendum entered by Terrie Levin RN 05/29/25 10:35: 1029 Called [facility], spoke to Heydi and initiated the transfer. Addendum entered by Terrie Levin RN 05/29/25 10:28: 1026 images pushed to [facility] via [employer]. 1020 Called [facility], spoke to Kristine and initiated the transfer.?Kristine asked to push images. Addendum entered by Terrie Levin RN 05/29/25 10:18: 1015 I faxed clinicals to [facility]. Original Note: 0715 Pt insurance is [employer]. Hospitals contarcted with pt insurance are [facility], [facility], [facility], [facility]. [facility] declined the pt per transfer center nurse notes.
[2025-05-29 08:31] LABS: Slide Review Platelets confirmed
[2025-05-29 09:19] LABS: Hematocrit 24.7 % (41.0-53.0)
[2025-05-29 09:20] LABS: Hemoglobin 8.0 g/dL (13.5-16.0)
[2025-05-29] MEDS: MORPHINE SULF INJ 10 MG/ML VIAL 2 MG IVP (12:19)
--- NOTE | 2025-05-29 15:23 | ESPR_ITS ---
<Statement entered by Pedro Valerio MD - 06/04/25 07:31> I reviewed above note and agree with findings and plans. I have also personally examined the patient with medicine team and went over assessment and plan with medical team including post graduate intern and resident physician. Documentation for date of: 05/29/25 Subjective Subjective Interval history: Patient states he feels about the same, maybe a little worse. Reports persistent pain (8?9/10), currently awaiting pain medication. Denies dizziness or lightheadedness. On 4L O2 nasal cannula. No nausea or vomiting. Eating and drinking without difficulty. Reports three bowel movements yesterday, all black stools per patient. Exam Vital Signs Temp Pulse Resp BP Pulse Ox O2 Del Method O2 Flow Rate 97.3 F 115 H 17 119/81 92 L Room Air 4 05/29/25 12:00 05/29/25 12:00 05/29/25 12:00 05/29/25 12:00 05/29/25 12:00 05/29/25 12:00 05/29/25 09:42 Narrative Exam General: Uncomfortable, ill-appearing man. Neurologic: GCS 15. Alert and oriented x3, no gross neurological deficit, and patient able to move all 4 extremities. HEENT: Normocephalic, atraumatic, mucous membranes moist. Pupils reactive to light. Heart: Regular rate and rhythm, normal S1 and S2, no murmurs. Lungs: Clear to auscultation bilaterally with no wheezing or crackles, Chemo- Port right, Right Pleurx catheter. Abdomen: Firm abdomen, nondistended, nontender. No guarding or rebound tenderness. Extremities: No edema. 2+ radial and dorsalis pedis pulses bilaterally. Skin: Warm. Dry. No rash or ecchymoses. Objective Labs 05/29/25 08:52 05/29/25 04:35 Labs: Laboratory Results - last 24 hr 05/28/25 05/28/25 05/29/25 09:30 20:54 04:35 WBC 8.2 RBC 2.57 L Hgb 8.4 L 7.8 L Hct 25.6 L 22.9 L MCV 89 MCH 30.4 MCHC 34.1 RDW Std Deviation 62.8 H Plt Count 51 L D Neut % (Auto) 65 Lymph % (Auto) 15 [place] % (Auto) 10 Eos % (Auto) 4 Baso % (Auto) 1 Neut # (Auto) 5.3 Lymph # (Auto) 1.2 [place] # (Auto) 0.8 Eos # (Auto) 0.3 Baso # (Auto) 0.1 Immature Gran # (Auto) 0.52 H Absolute Nucleated RBC 0.45 H Immature Gran % 6 H Nucleated RBC % 6 H Sodium 137 Potassium 4.0 D Chloride 98 Carbon Dioxide 28.2 Anion Gap 11 BUN 8 L Creatinine 0.4 L Estim Creat Clear Calc 185.0 eGFR > 60 BUN/Creatinine Ratio 20 Glucose 109 H Calculated Osmolality 273 L Calcium 8.5 Corrected Calcium 9.1 Phosphorus 3.6 Magnesium 1.9 Total Bilirubin 1.9 H D AST 17 ALT 7 L Alkaline Phosphatase 940 H Total Protein 5.5 L Albumin 3.2 L Globulin 2.3 Albumin/Globulin Ratio 1.4 Ur Collection Type Urine Color Urine Clarity Urine pH Ur Specific [place] Urine Protein Urine Glucose (UA) Urine Ketones Urine Blood Urine Nitrite Urine Bilirubin Urine Urobilinogen (Auto) Ur Leukocyte Esterase Urine RBC Urine WBC Ur Squamous Epith Cells Urine Bacteria Misc Test Result Platelets confirmed Blood Type A Positive Antibody Screen NEGATIVE Crossmatch See Detail Blood Bank Wristband ID Yes 05/29/25 05/29/25 04:45 08:52 WBC RBC Hgb 8.0 L Hct 24.7 L MCV MCH MCHC RDW Std Deviation Plt Count Neut % (Auto) Lymph % (Auto) [place] % (Auto) Eos % (Auto) Baso % (Auto) Neut # (Auto) Lymph # (Auto) [place] # (Auto) Eos # (Auto) Baso # (Auto) Immature Gran # (Auto) Absolute Nucleated RBC Immature Gran % Nucleated RBC % Sodium Potassium Chloride Carbon Dioxide Anion Gap BUN Creatinine Estim Creat Clear Calc eGFR BUN/Creatinine Ratio Glucose Calculated Osmolality Calcium Corrected Calcium Phosphorus Magnesium Total Bilirubin AST ALT Alkaline Phosphatase Total Protein Albumin Globulin Albumin/Globulin Ratio Ur Collection Type Voided Urine Color Yellow Urine Clarity Clear Urine pH 7.0 Ur Specific [place] 1.007 Urine Protein Negative Urine Glucose (UA) Negative Urine Ketones Negative Urine Blood Negative Urine Nitrite Negative Urine Bilirubin Negative Urine Urobilinogen (Auto) 3.0 Ur Leukocyte Esterase Negative Urine RBC < 1 Urine WBC < 1 Ur Squamous Epith Cells 0 Urine Bacteria None Misc Test Result Blood Type Antibody Screen Crossmatch Blood Bank Wristband ID Quality Measures Quality Measures VTE prophylaxis Assessment & Plan Assessment Current Active Medications: Generic Name Dose Route Start Last Admin Trade Name Freq PRN Reason Stop Dose Admin Acetaminophen 650 mg 05/25/25 17:42 Acetaminophen 325 Mg Tablet PO 06/24/25 17:41 Q6H PRN Fever >101.5 Acetaminophen 650 mg 05/25/25 17:42 05/28/25 10:46 Acetaminophen 325 Mg Tablet PO 06/24/25 17:41 650 mg Q6H PRN Administration PAIN SCALE 1-3 (mild Hydrocodone Bitart/Acetaminophen 1 tab 05/29/25 14:09 Hydrocodone/Apap 10/325 Tab PO 06/02/25 17:41 Q4H PRN Breakthrough Pain Dicyclomine HCl 10 mg 05/28/25 17:18 05/28/25 18:08 Dicyclomine 10 Mg Capsule PO 06/27/25 17:17 10 mg Q4HR PRN Administration CRAMPS Protocol Morphine Sulfate 10 mg 05/27/25 11:25 05/29/25 12:54 Morphine Sulf Liqd 10 Mg/5 Ml Udc PO 06/01/25 11:24 10 mg Q4HR PRN Administration PAIN SCALE 7-10 (Severe Ondansetron HCl 4 mg 05/25/25 17:42 05/25/25 18:48 Ondansetron Inj 2 Mg/Ml Inj 2 Ml IVP 06/24/25 17:41 4 mg Q6H PRN Administration NAUSEA OR VOMITING Protocol Pantoprazole Sodium 40 mg 05/25/25 21:00 05/29/25 08:50 Pantoprazole Inj 40 Mg Vial IVP 06/24/25 20:59 40 mg Q12HR JUAN JOSE Administration Plan 49M with metastatic GI cancer and recent GI bleed, downgraded from ICU, now stable post-transfusion; pending transfer for capsule endoscopy with patient and family in agreement. #Acute GI Bleed (Melena) Patient reports 2 weeks of black tarry stools; concern for ongoing GI bleed. Nuclear med scan negative, and EGD performed showed normal esophagus, mild gastritis, and normal duodenum to mid-third portion; no source of bleeding identified. Procedure stopped early due to tachycardia. Plan: * Continue IV Pantoprazole * Monitor for signs of rebleeding * Transfer initiated to outside facility for capsule endoscopy as recommended by GI * Continue to escalate transfer efforts to tertiary center for capsule endoscopy * Patient and family informed and in agreement #Normocytic Normochromic Anemia Hgb improved to 8.0, likely ongoing slow bleed Plan: * 1U PRBC given yesterday * Follow-up CBC q6-8h * Consider iron therapy only if bleeding stops #Thrombocytopenia Likely consumptive from bleeding + bone marrow suppression from cancer. Platelets trending down: 129 --> 93 --> 66 --> now 51. High bleeding risk. Plan: * No current indication for re-transfusion * Consider transfusion if platelets drop <30 or prior to any procedure * Monitor platelets with daily CBC * Replete as needed for procedures #Hemorrhagic Shock (Resolved) Hemodynamically unstable on admission (BP 90/57, HR 137) with Hgb 4.7 due to GI bleeding; now stable post-transfusion with Hgb improved to 7.9, INR 1.3, Plt 93. Initial GI bleed with Hgb 4.7, now stable post-transfusion but Hgb trended down again to 7.3 with Plt 93 --> 66 --> 93. 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 with elevated CA 19-9, persistent ALP elevation (881 --> 929 --> now 940), T. bili 2.9. Transitioned off hospice. Actively pursuing diagnostics. Plan: * Continue symptom management (nausea, pain) * Oncology aware * Follow for clinical deterioration #Coagulopathy Initial INR 1.6 --> now 1.3 after 1U FFP + vitamin K. No current evidence of DIC. Plan: * Continue to trend INR/PTT daily * Hold anticoagulation unless otherwise indicated #Pleural Effusion Secondary To Malignancy #Hypoxia Stable right PleurX catheter in place. No signs of infection or worsening dyspnea. On 4L nasal cannula, maintaining O2 sat per chart. No complaints of SOB. Plan: * Monitor for signs of pleuritic symptoms or drainage issues * Monitor sats and O2 requirements * Wean as tolerated Health Maintenance: Disposition: Still pending transfer to [facility] for capsule endoscopy; 3 hospitals declined, continuing efforts. Feeding: Regular diet Thromboprophylaxis: SCDs only GI prophylaxis: Continue IV Pantoprazole Code Status: Full Code ----- Plan discussed with attending physician Dr. Teodoro Engel MD PGY-1 Internal Medicine
--- NOTE | 2025-05-29 16:50 | PD.RESDS ---
Planned Discharge Date 05/29/25 DS: Providers Provider Date of admission: 05/25/25 17:38 Primary care physician: Kenneth Baker PA-C Admitting Provider: Madan Bonds MD Attending Provider on Admission: Madan Bonds MD Consults: 05/25/25 16:30 Consult to Gastroenterology Stat Comment: Consulting Provider: Fer Watson 05/25/25 17:59 Consult to Oncology Stat Comment: GI cancer with mets. Consulting Provider: Bari Schwartz 05/25/25 21:30 [employer] Referral - Nutrition Routine Comment: Positive screening for nutrition needs. 05/26/25 15:27 Referral Hospice Routine Comment: 05/27/25 08:41 Referral - Sand Blaster Routine Service Needed for Transfer: Gastroenterology Addl Comments:: 49 male with metastatic GI cancer presenting with GI bleed and hemorrhagic shock, now stable and needs a capsule endoscopy which is not provided at our facility. 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 He was previously discharged on hospice care on 05/15/2025 but returned due to worsening symptoms. In the ED, he was hypotensive (BP 90s/50s), tachycardic (HR >130), and found to have a hemoglobin of 4.7, platelets 36, and INR 1.6. He was transfused with 3 units of PRBCs, 2 units of platelets, and 1 unit of FFP and admitted to the ICU for monitoring of hemorrhagic shock and active GI bleed. GI and oncology were consulted. EGD revealed normal esophagus, mild gastritis, and normal duodenum; no active bleeding identified. The procedure was terminated early due to patient tachycardia. A nuclear medicine GI bleed scan was performed and was negative for active bleeding. GI recommended capsule endoscopy; however, this is not available at our facility. The patient was downgraded to the medical floor on 05/27/2025 after stabilization. Hemoglobin trended down again to 7.3 --> transfused 1U PRBC --> post-transfusion Hgb 8.4 --> then 7.8 the following morning. Platelets continued to decline (129 -> 93 -> 66 -> 51). He reported hematochezia on 05/28 and 05/29 and persistent severe pain (8?9/10), which was managed with pain medications. GI continues to recommend capsule endoscopy. Transfer efforts were made with multiple facilities, and [facility] accepted the patient for transfer for further evaluation and management, including capsule endoscopy and potential advanced imaging/intervention. Patient remains on 4L nasal cannula, hemodynamically stable, tolerating oral intake, and in agreement with transfer. Diagnosis during admission: #Gastrointestinal Bleed #Hemorrhagic Shock #Normocytic Normochromic Anemia #Thrombocytopenia #Metastatic Gastrointestinal Malignancy #Coagulopathy #Severe Pain (resolved) #Hyperbilirubinemia #Elevated Alkaline Phosphatase #History of Hospice Care ----- Plan discussed with attending physician Dr. Teodoro Engel MD PGY-1 Internal Medicine Time Spent with Patient Time attestation: Total time spent providing and/or coordinating discharge services: Time spent: Greater than 30 minutes Exam Vital Signs Temp Pulse Resp BP Pulse Ox O2 Del Method O2 Flow Rate 97.2 F 103 H 17 117/78 91 L Room Air 4 05/29/25 16:00 05/29/25 16:00 05/29/25 16:00 05/29/25 16:05/29/25 16:00 05/29/25 16:00 05/29/25 09:42 Narrative Exam General: Uncomfortable, ill-appearing man. Neurologic: GCS 15. Alert and oriented x3, no gross neurological deficit, and patient able to move all 4 extremities. HEENT: Normocephalic, atraumatic, mucous membranes moist. Pupils reactive to light. Heart: Regular rate and rhythm, normal S1 and S2, no murmurs. Lungs: Clear to auscultation bilaterally with no wheezing or crackles, Chemo-Port right, Right Pleurx catheter. Abdomen: Firm abdomen, nondistended, nontender. No guarding or rebound tenderness. Extremities: No edema. 2+ radial and dorsalis pedis pulses bilaterally. Skin: Warm. Dry. No rash or ecchymoses. Discharge Plan Plan Patient Disposition: [facility] Facility Pt Being Transferred to: [facility] Service Needed for Transfer: Gastroenterology Patient condition on transfer: Stable and Benefits outweigh risks Prescriptions/Referrals Prescriptions/Med Rec: No Action morphine 100 mg/5 mL concentrate 10 - 20 mg PO .[id number] lorazepam [Lorazepam Intensol] 2 mg/mL concentrate 0.5 mg PO Q4H PRN (Reason: anxiety) hydromorphone [Dilaudid] 2 mg tablet 2 mg PO Q3H Referrals: Kenneth Baker PA-C [Primary Care Provider] - Patient/Caregiver Discharge Instructions Print Language: Maori Stand Alone Forms: Jerica Award Info., Patient Portal Info Letter Discharge Order Discharge Orders: Discharge (Routine); Ordered 06/01/25 Ordered By: Vamsi Sequeira Quality Discharge Quality Measures VTE prophylaxis
--- NOTE | 2025-05-29 18:25 | ESPR_ITS ---
Documentation for date of: 05/29/25 Subjective Subjective Interval history: Patient evaluated Hemoglobin hematocrit 8.0 and 24.7 Upper endoscopy normal up to mid jejunum Exam Vital Signs Temp Pulse Resp BP Pulse Ox O2 Del Method O2 Flow Rate 97.2 F 103 H 17 117/78 91 L Room Air 4 05/29/25 16:00 05/29/25 16:00 05/29/25 16:00 05/29/25 16:00 05/29/25 16:00 05/29/25 16:00 05/29/25 09:42 Objective Labs 05/29/25 08:52 05/29/25 04:35 Labs: Laboratory Results - last 24 hr 05/28/25 05/28/25 05/29/25 09:30 20:54 04:35 WBC 8.2 RBC 2.57 L Hgb 8.4 L 7.8 L Hct 25.6 L 22.9 L MCV 89 MCH 30.4 MCHC 34.1 RDW Std Deviation 62.8 H Plt Count 51 L D Neut % (Auto) 65 Lymph % (Auto) 15 [place] % (Auto) 10 Eos % (Auto) 4 Baso % (Auto) 1 Neut # (Auto) 5.3 Lymph # (Auto) 1.2 [place] # (Auto) 0.8 Eos # (Auto) 0.3 Baso # (Auto) 0.1 Immature Gran # (Auto) 0.52 H Absolute Nucleated RBC 0.45 H Immature Gran % 6 H Nucleated RBC % 6 H Sodium 137 Potassium 4.0 D Chloride 98 Carbon Dioxide 28.2 Anion Gap 11 BUN 8 L Creatinine 0.4 L Estim Creat Clear Calc 185.0 eGFR > 60 BUN/Creatinine Ratio 20 Glucose 109 H Calculated Osmolality 273 L Calcium 8.5 Corrected Calcium 9.1 Phosphorus 3.6 Magnesium 1.9 Total Bilirubin 1.9 H D AST 17 ALT 7 L Alkaline Phosphatase 940 H Total Protein 5.5 L Albumin 3.2 L Globulin 2.3 Albumin/Globulin Ratio 1.4 Ur Collection Type Urine Color Urine Clarity Urine pH Ur Specific [place] Urine Protein Urine Glucose (UA) Urine Ketones Urine Blood Urine Nitrite Urine Bilirubin Urine Urobilinogen (Auto) Ur Leukocyte Esterase Urine RBC Urine WBC Ur Squamous Epith Cells Urine Bacteria Misc Test Result Platelets confirmed Crossmatch See Detail 05/29/25 05/29/25 04:45 08:52 WBC RBC Hgb 8.0 L Hct 24.7 L MCV MCH MCHC RDW Std Deviation Plt Count Neut % (Auto) Lymph % (Auto) [place] % (Auto) Eos % (Auto) Baso % (Auto) Neut # (Auto) Lymph # (Auto) [place] # (Auto) Eos # (Auto) Baso # (Auto) Immature Gran # (Auto) Absolute Nucleated RBC Immature Gran % Nucleated RBC % Sodium Potassium Chloride Carbon Dioxide Anion Gap BUN Creatinine Estim Creat Clear Calc eGFR BUN/Creatinine Ratio Glucose Calculated Osmolality Calcium Corrected Calcium Phosphorus Magnesium Total Bilirubin AST ALT Alkaline Phosphatase Total Protein Albumin Globulin Albumin/Globulin Ratio Ur Collection Type Voided Urine Color Yellow Urine Clarity Clear Urine pH 7.0 Ur Specific [place] 1.007 Urine Protein Negative Urine Glucose (UA) Negative Urine Ketones Negative Urine Blood Negative Urine Nitrite Negative Urine Bilirubin Negative Urine Urobilinogen (Auto) 3.0 Ur Leukocyte Esterase Negative Urine RBC < 1 Urine WBC < 1 Ur Squamous Epith Cells 0 Urine Bacteria None Misc Test Result Crossmatch Impressions Impression: Occult GI bleeding Adenocarcinoma of an unknown primary Transfer to a tertiary center Assessment & Plan A&P Narrative 1. Suspected small bowel malignancy with active bleeding admitted with transfusions and other supportive care. 2. Briefly opted for hospice care but now admitted seeking regular care. 3. Nuclear medicine GI bleeding scan pending. Time Spent With Patient Time: Total time spent is greater than 50% in coordination of care (as documented) at patient's floor/unit and/or counseling patient:
[2025-05-30] VITALS (14 sets, daily range): BP systolic 111–140; BP diastolic 69–96; PULSE 110–137; RESP 18–36; TEMP 36.1–36.8; O2SAT 88–100; BMI 22.4
[2025-05-30] MEDS: MORPHINE SULF LIQD 10 MG/5 ML UDC PO ×4 (00:23→18:11)
[2025-05-30 06:11] LABS: Basophils # (Auto) 0.1 Thou/mm3 (0.0-0.2); Basophils % (Auto) 1 % (0-2.5); Eosinophils # (Auto) 0.3 Thou/mm3 (0.0-0.5); Eosinophils % (Auto) 3 % (0-10); Hematocrit 21.8 % (41.0-53.0); Immature Granulocytes Auto 0.66 Thou/mm3 (0.00-0.00); Lymphocytes # (Auto) 1.7 Thou/mm3 (1.0-4.8); Lymphocytes % (Auto) 19 % (10-50); Mean Corpuscular HGB Conc 33.0 g/dl (31.0-37.0); Mean Corpuscular Hemoglobin 30.3 pg (25.0-35.0); Mean Corpuscular Volume 92 fL (80-100); Monocytes # (Auto) 0.7 Thou/mm3 (0.0-0.8); Monocytes % (Auto) 8 % (0-12); Neutrophils # (Auto) 5.5 Thou/mm3 (1.8-7.7); Neutrophils % (Auto) 62 % (37-80); Nucleated Red Blood Cell # 0.40 Thou/mm3 (0.00-0.00); Nucleated Red Blood Cell % 5 /100 WBC (0); RDW Standard Deviation 69.2 fL (35.1-43.9); Red Blood Count 2.38 Miln/mm3 (4.50-5.90); White Blood Count 8.9 Thou/mm3 (3.8-10.6)
[2025-05-30 06:25] LABS: Hemoglobin 7.2 g/dL (13.5-16.0); Platelet Count 40 Thou/mm3 (140-440)
[2025-05-30 06:56] LABS: Alanine Aminotransferase 10 U/L (10-49); Albumin, Serum 3.2 gm/dL (3.5-5.0); Albumin/Globulin Ratio 1.3 (1.2-2.2); Alkaline Phosphatase 1014 U/L (46-116); Anion Gap 9 (7-16); Aspartate Amino Transferase 25 U/L (0-34); BUN/Creatinine Ratio 18 Ratio (12-20); Bilirubin,Total 2.0 mg/dL (0.3-1.2); Blood Urea Nitrogen 7 mg/dL (9-23); Calcium 8.5 mg/dL (8.3-10.6); Calcium (Corrected) 9.1 mg/dL (8.5-10.1); Carbon Dioxide 26.4 mMol/L (20.0-31.0); Chloride 101 mMol/L (98-107); Creatinine (Component) 0.4 mg/dL (0.6-1.3); Estimated Creatinine Clearance 185.0 mL/min (>60); Globulin 2.4 gm/dL (2.3-3.5); Glucose 113 mg/dL (74-106); Magnesium 1.4 mg/dL (1.6-2.6); Osmolality,Calculated 270 (275-295); Phosphorous 3.9 mg/dL (2.4-5.1); Potassium 4.1 mMol/L (3.4-5.1); Sodium 136 mMol/L (136-145); Total Protein 5.6 gm/dL (5.7-8.2); eGFR > 60 See Note
[2025-05-30 07:11] LABS: Slide Review Platelets confirmed
[2025-05-30] MEDS: Magnesium Sulfate 4 GM Ivpb 4 GM/50 ML BAG IV (08:07)
--- NOTE | 2025-05-30 09:13 | PC.CC ---
[address] Segundo, [facility] recommended MR enterography before considering to accept the transfer.
[2025-05-30] MEDS: HYDROmorphone INJ 2 MG/ML VIAL IVP (10:13)
--- NOTE | 2025-05-30 10:49 | PC.NURSE ---
Notified Dr. Camejo of patients HR sustaining in high 130's. Patient in bed resting. Dilaudid 2mg given iv. b/p 121/89 satting 96% on 6 liter nc. Will monitor
--- NOTE | 2025-05-30 11:00 | PC.NURSE ---
HR at this time 118. Will continue to monitor.
--- NOTE | 2025-05-30 11:18 | EKG_ITS ---
[facility] (Formerly [facility])[3] Test Date: 2025-05-30 Pat Name: LYN ROJAS [facility] Gender: Male Acid Etch Operator: ROYA : 1975 Requested By: Dilan Serrano Order Number: [id number] Reading MD: Dilan Serrano Measurements Intervals [place] Rate: 119 P: 24 MA: 145 QRS: 29 QRSD: 85 T: 31 QT: 281 QTc: 396 Interpretive Statements SINUS TACHYCARDIA NONSPECIFIC T-WAVE ABNORMALITY ABNORMAL RHYTHM ECG Compared to ECG 05/12/2025 08:02:39 T-wave abnormality now present /store/S0/[id number].pdf
--- NOTE | 2025-05-30 13:16 | PC.NURSE ---
PLASTIC BATTERY ASSEMBLER called at 1116. ended at 1125. Charge nurse Suzanne notified.
[2025-05-30] MEDS: MORPHINE SULF LIQD 10 MG/5 ML UDC 20 MG PO ×2 (14:57→22:34)
[2025-05-30 16:35] LABS: Hematocrit 26.2 % (41.0-53.0)
[2025-05-30 16:49] LABS: Hemoglobin 8.5 g/dL (13.5-16.0)
--- NOTE | 2025-05-30 17:04 | PD.RESEVENT ---
Documentation for date of: 05/30/25 Event Note Event Note: Rapid response called at 1116 for tachycardia at rate of 120s. STAT EKG shows sinus tach at rate of 119, no ST elevation or depression noted. Pt alert and oriented. VS stable. Denies chest pain or sob, however endorses 10/10 generalized pain at baseline, likely due to metastatic GI cancer. Airway not compromised, breathing and saturating well on RA. Pt not in acute distress. Hgb this morning is 7.2. 1pRBC ordered. Rapid response ended at 1125. Senior resident Dr. Segundo and attending Dr. Valerio present. Case discussed with my senior resident Dr. Segundo Case discussed with my attending Dr. Valerio [facility], DO PGY 1
--- NOTE | 2025-05-30 17:12 | ESPR_ITS ---
<Statement entered by Pedro Valerio MD - 06/04/25 07:33> I reviewed above note and agree with findings and plans. I have also personally examined the patient with medicine team and went over assessment and plan with medical team including security intern and resident physician. <Statement entered by Omid Segundo MD - 05/30/25 17:48> Patient seen and examined at bedside. I discussed and supervised with the security intern physician who took care of this patient. I personally saw and examined the patient. I agree with most of the assessment and plan. Patient had rapid for persistent tachycardia, EKG showed sinus tachycardia. Patient was transfused 1 unit PRBC. Pain management adjusted to be closer to previous hospice regiment, patient complains of significant pain. Pending transfer to higher level of care. Plan of care discussed with attending Dr. Valerio. Omid Segundo MD PGY-2 Documentation for date of: 05/30/25 Subjective Subjective Interval history: No overnight events. Evaluated at bedside. Pt complains of 10/10 pain all over his body, likely due to metastatic GI malignancy. Reports no BM since 2 days ago. Hgb this morning was 7.2, 1pRBC ordered and transfused. Post-transfusion h/h is 8.5/26.2. Pending transfer to higher level of care for capsule endoscopy. Plan for MR enterography tomorrow. Exam Vital Signs Temp Pulse Resp BP Pulse Ox O2 Del Method O2 Flow Rate 97.4 F 116 H 18 119/74 94 L Nasal Cannula 3 05/30/25 16:05/30/25 16:05/30/25 16:05/30/25 16:05/30/25 16:05/30/25 16:05/30/25 16:00 Narrative Exam General: Malnourished, appears uncomfortable. Oriented x 3. 10/10 generalized pain Heart: Tachycardic, Sinus tach on EKG today. Lungs: Clear to auscultation and percussion. No rales, wheeze, or rhonchi Abdomen: Bowel sounds normal, no tenderness, organomegaly, masses, or hernia Extremities: No amputations or deformities, cyanosis, edema or varicosities, peripheral pulses intact Objective Labs 05/30/25 16:09 05/30/25 05:12 Labs: Laboratory Results - last 24 hr 05/30/25 05/30/25 05/30/25 05:12 10:40 16:09 WBC 8.9 RBC 2.38 L Hgb 7.2 L 8.5 L Hct 21.8 L* 26.2 L MCV 92 MCH 30.3 MCHC 33.0 RDW Std Deviation 69.2 H Plt Count 40 L D Neut % (Auto) 62 Lymph % (Auto) 19 [place] % (Auto) 8 Eos % (Auto) 3 Baso % (Auto) 1 Neut # (Auto) 5.5 Lymph # (Auto) 1.7 [place] # (Auto) 0.7 Eos # (Auto) 0.3 Baso # (Auto) 0.1 Immature Gran # (Auto) 0.66 H Absolute Nucleated RBC 0.40 H Immature Gran % 8 H Nucleated RBC % 5 H Sodium 136 Potassium 4.1 Chloride 101 Carbon Dioxide 26.4 Anion Gap 9 BUN 7 L Creatinine 0.4 L Estim Creat Clear Calc 185.0 eGFR > 60 BUN/Creatinine Ratio 18 Glucose 113 H Calculated Osmolality 270 L Calcium 8.5 Corrected Calcium 9.1 Phosphorus 3.9 Magnesium 1.4 L Total Bilirubin 2.0 H AST 25 ALT 10 Alkaline Phosphatase 1014 H D Total Protein 5.6 L Albumin 3.2 L Globulin 2.4 Albumin/Globulin Ratio 1.3 Misc Test Result Platelets confirmed Blood Type A Positive Antibody Screen NEGATIVE Crossmatch See Detail Blood Bank Wristband ID Yes Quality Measures Quality Measures VTE prophylaxis Assessment & Plan Assessment Current Active Medications: Generic Name Dose Route Start Last Admin Trade Name Willie PRN Reason Stop Dose Admin Acetaminophen 650 mg 05/25/25 17:42 Acetaminophen 325 Mg Tablet PO 06/24/25 17:41 Q6H PRN Fever >101.5 Acetaminophen 650 mg 05/25/25 17:42 05/28/25 10:46 Acetaminophen 325 Mg Tablet PO 06/24/25 17:41 650 mg Q6H PRN Administration PAIN SCALE 1-3 (mild Hydrocodone Bitart/Acetaminophen 1 tab 05/29/25 14:09 05/30/25 16:13 Hydrocodone/Apap 10/325 Tab PO 06/02/25 17:41 1 tab Q4H PRN Administration Breakthrough Pain Dicyclomine HCl 10 mg 05/28/25 17:18 05/28/25 18:08 Dicyclomine 10 Mg Capsule PO 06/27/25 17:17 10 mg Q4HR PRN Administration CRAMPS Protocol Hydromorphone HCl 1 mg 05/30/25 13:37 Hydromorphone Hcl 2 Mg Tablet PO 06/04/25 13:27 Q4HR PRN PAIN Morphine Sulfate 10 mg 05/27/25 11:25 05/30/25 12:40 Morphine Sulf Liqd 10 Mg/5 Ml Udc PO 06/01/25 11:24 10 mg Q4HR PRN Administration PAIN SCALE 7-10 (Severe Protocol Morphine Sulfate 20 mg 05/30/25 13:28 05/30/25 14:57 Morphine Sulf Liqd 10 Mg/5 Ml Udc PO 06/04/25 10:10 20 mg Q4HR PRN Administration PAIN SCALE 4-10(Mod-Sev Ondansetron HCl 4 mg 05/25/25 17:42 05/25/25 18:48 Ondansetron Inj 2 Mg/Ml Inj 2 Ml IVP 06/24/25 17:41 4 mg Q6H PRN Administration NAUSEA OR VOMITING Protocol Pantoprazole Sodium 40 mg 05/25/25 21:00 05/30/25 08:07 Pantoprazole Inj 40 Mg Vial IVP 06/24/25 20:59 40 mg Q12HR JUAN JOSE Administration Plan 49M with metastatic GI cancer and recent GI bleed, downgraded from ICU; pending transfer for capsule endoscopy with patient and family in agreement. Rapid Reponse called today for tachycardia, VS stable, no intervention. Hgb this morning at 7.2, 1pRBC transfused. Pending MR enterography #Acute GI Bleed (Melena) Patient reports 2 weeks of black tarry stools; concern for ongoing GI bleed. Nuclear med scan negative, and EGD performed showed normal esophagus, mild gastritis, and normal duodenum to mid-third portion; no source of bleeding identified. Procedure stopped early due to tachycardia. Plan: * Continue IV Pantoprazole * Monitor for signs of rebleeding * Transfer initiated to outside facility for capsule endoscopy as recommended by GI * Continue to escalate transfer efforts to tertiary center for capsule endoscopy * Patient and family informed and in agreement * Pending MR enterography #Normocytic Normochromic Anemia Hgb dropped to 7.2, likely ongoing slow bleed Plan: * 1U PRBC given 05/28/25. * 1U pRBC given 05/30/25 due to low Hgb 7.2 Post transfusion h/h 8.2/26.2 * Follow-up CBC q6-8h * Consider iron therapy only if bleeding stops #Thrombocytopenia Likely consumptive from bleeding + bone marrow suppression from cancer. Platelets trending down: 129 --> 93 --> 66 --> 51 --> 40. High bleeding risk. Plan: * No current indication for re-transfusion * Consider transfusion if platelets drop <30 or prior to any procedure * Monitor platelets with daily CBC * Replete as needed for procedures * Consider platelet transfusion pending morning lab tmr #Hemorrhagic Shock (Resolved) Hemodynamically unstable on admission (BP 90/57, HR 137) with Hgb 4.7 due to GI bleeding; Initial GI bleed with Hgb 4.7, but Hgb trending down despite pRBC transfusion. BP stable at 119/74, Hgb 8.2 post 1pRBC transfusion. Plan: * Transfused 1U PRBC on 05/28, 1pRBC today * Monitor vitals and reassess Hgb/Plt later today * Hold anticoagulation * Maintain IV access #Metastatic GI Malignancy (likely small bowel) Metastatic gastric/small bowel cancer with spread to lung, bone, liver. with elevated CA 19-9, persistent ALP elevation (881 --> 929 --> 940 --> 1014), T. bili 2.9. Transitioned off hospice. Actively pursuing diagnostics. Plan: * Continue symptom management (nausea, pain) * Oncology aware * Follow for clinical deterioration * Multimodal pain management (Morphone 20 mg PO PRN, Dilaudid 1mg PO PRN) (Note: this is what pt was on at Hospice care) #Coagulopathy Initial INR 1.6 --> now 1.3 after 1U FFP + vitamin K. No current evidence of DIC. Plan: * Continue to trend INR/PTT daily * Hold anticoagulation unless otherwise indicated #Pleural Effusion Secondary To Malignancy #Hypoxia Stable right PleurX catheter in place. No signs of infection or worsening dyspnea. On 4L nasal cannula, maintaining O2 sat per chart. No complaints of SOB. Plan: * Monitor for signs of pleuritic symptoms or drainage issues * Monitor sats and O2 requirements * Wean as tolerated Health Maintenance: Disposition: Still pending transfer to tertiary center for capsule endoscopy; 3 hospitals declined, continuing efforts. Feeding: Regular diet Thromboprophylaxis: SCDs only GI prophylaxis: Continue IV Pantoprazole Code Status: Full Code Case discussed with my senior resident Dr. Segundo Case discussed with my attending Dr. Teodoro Serrano, DO PGY 1
--- NOTE | 2025-05-30 18:27 | PC.NURSE ---
Patient hr sustaining in the 120s with o2 sats of 95% on 4 liter nc. Patients pain is tolerable at 4, changed position after eating. Family at bedside. Will continue to monitor. --THI
--- NOTE | 2025-05-30 19:36 | ESPR_ITS ---
Documentation for date of: 05/30/25 Subjective Subjective Interval history: Hemoglobin hematocrit 8.5 and 26.2 Internal medicine team and the case management is working on a transfer Exam Vital Signs Temp Pulse Resp BP Pulse Ox O2 Del Method O2 Flow Rate 97.4 F 111 H 24 H 119/74 93 L Nasal Cannula 3 05/30/25 16:00 05/30/25 19:03 05/30/25 19:03 05/30/25 16:00 05/30/25 19:03 05/30/25 16:00 05/30/25 19:03 Objective Labs 05/30/25 16:09 05/30/25 05:12 Labs: Laboratory Results - last 24 hr 05/30/25 05/30/25 05/30/25 05:12 10:40 16:09 WBC 8.9 RBC 2.38 L Hgb 7.2 L 8.5 L Hct 21.8 L* 26.2 L MCV 92 MCH 30.3 MCHC 33.0 RDW Std Deviation 69.2 H Plt Count 40 L D Neut % (Auto) 62 Lymph % (Auto) 19 [place] % (Auto) 8 Eos % (Auto) 3 Baso % (Auto) 1 Neut # (Auto) 5.5 Lymph # (Auto) 1.7 [place] # (Auto) 0.7 Eos # (Auto) 0.3 Baso # (Auto) 0.1 Immature Gran # (Auto) 0.66 H Absolute Nucleated RBC 0.40 H Immature Gran % 8 H Nucleated RBC % 5 H Sodium 136 Potassium 4.1 Chloride 101 Carbon Dioxide 26.4 Anion Gap 9 BUN 7 L Creatinine 0.4 L Estim Creat Clear Calc 185.0 eGFR > 60 BUN/Creatinine Ratio 18 Glucose 113 H Calculated Osmolality 270 L Calcium 8.5 Corrected Calcium 9.1 Phosphorus 3.9 Magnesium 1.4 L Total Bilirubin 2.0 H AST 25 ALT 10 Alkaline Phosphatase 1014 H D Total Protein 5.6 L Albumin 3.2 L Globulin 2.4 Albumin/Globulin Ratio 1.3 Misc Test Result Platelets confirmed Blood Type A Positive Antibody Screen NEGATIVE Crossmatch See Detail Blood Bank Wristband ID Yes Impressions Impression: Small bowel bleed Occult malignancy of unknown primary Current management to continue Assessment & Plan A&P Narrative 1. Suspected small bowel malignancy with active bleeding admitted with transfusions and other supportive care. 2. Briefly opted for hospice care but now admitted seeking regular care. 3. Nuclear medicine GI bleeding scan pending. Time Spent With Patient Time: Total time spent is greater than 50% in coordination of care (as documented) at patient's floor/unit and/or counseling patient:
[2025-05-30] MEDS: HYDROMORPHONE HCL 2 MG TABLET 1 MG PO (20:20)
[2025-05-30 23:00] LABS: Lactate (Lactic Acid) 1.3 mMol/L (0.4-2.0)
[2025-05-30 23:03] LABS: Basophils # (Auto) 0.1 Thou/mm3 (0.0-0.2); Basophils % (Auto) 1 % (0-2.5); Eosinophils # (Auto) 0.4 Thou/mm3 (0.0-0.5); Eosinophils % (Auto) 4 % (0-10); Hematocrit 25.9 % (41.0-53.0); Immature Granulocytes Auto 0.64 Thou/mm3 (0.00-0.00); Lymphocytes # (Auto) 2.3 Thou/mm3 (1.0-4.8); Lymphocytes % (Auto) 21 % (10-50); Mean Corpuscular HGB Conc 32.8 g/dl (31.0-37.0); Mean Corpuscular Hemoglobin 29.1 pg (25.0-35.0); Mean Corpuscular Volume 89 fL (80-100); Monocytes # (Auto) 0.8 Thou/mm3 (0.0-0.8); Monocytes % (Auto) 7 % (0-12); Neutrophils # (Auto) 6.5 Thou/mm3 (1.8-7.7); Neutrophils % (Auto) 61 % (37-80); Nucleated Red Blood Cell # 0.53 Thou/mm3 (0.00-0.00); Nucleated Red Blood Cell % 5 /100 WBC (0); RDW Standard Deviation 62.3 fL (35.1-43.9); Red Blood Count 2.92 Miln/mm3 (4.50-5.90); White Blood Count 10.6 Thou/mm3 (3.8-10.6)
[2025-05-30 23:05] LABS: Hemoglobin 8.5 g/dL (13.5-16.0); Platelet Count 31 Thou/mm3 (140-440)
[2025-05-30 23:06] LABS: Slide Review Platelets confirmed
[2025-05-30] MEDS: MORPHINE SULF INJ 10 MG/ML VIAL IVP (23:14)
--- NOTE | 2025-05-30 23:17 | PC.NURSE ---
Pt complaining of pressure on his chest and chest pain. DYE BLENDER called to pt's room art [id number]. EKG, labs, and morphine 1 mg ordered.
[2025-05-30 23:28] LABS: Alanine Aminotransferase 11 U/L (10-49); Albumin, Serum 3.5 gm/dL (3.5-5.0); Albumin/Globulin Ratio 1.4 (1.2-2.2); Alkaline Phosphatase 1029 U/L (46-116); Anion Gap 8 (7-16); Aspartate Amino Transferase 37 U/L (0-34); BUN/Creatinine Ratio 24 Ratio (12-20); Bilirubin,Total 1.9 mg/dL (0.3-1.2); Blood Urea Nitrogen 12 mg/dL (9-23); Calcium 8.7 mg/dL (8.3-10.6); Calcium (Corrected) 9.1 mg/dL (8.5-10.1); Carbon Dioxide 28.9 mMol/L (20.0-31.0); Chloride 98 mMol/L (98-107); Creatinine (Component) 0.5 mg/dL (0.6-1.3); Estimated Creatinine Clearance 148.0 mL/min (>60); Globulin 2.5 gm/dL (2.3-3.5); Glucose 127 mg/dL (74-106); Lipase 35 U/L (12-53); Osmolality,Calculated 271 (275-295); Potassium 4.9 mMol/L (3.4-5.1); Sodium 135 mMol/L (136-145); Total Protein 6.0 gm/dL (5.7-8.2); Troponin I < 0.020 ng/mL (0.0-0.045); eGFR > 60 See Note
[2025-05-31] VITALS (91 sets, daily range): BP systolic 60–179; BP diastolic 43–123; PULSE 91–162; RESP 15–48; TEMP 36.1–37.4; O2SAT 61–100; BMI 22.4
[2025-05-31] MEDS: MORPHINE SULF LIQD 10 MG/5 ML UDC 20 MG PO ×3 (04:03→12:46)
--- NOTE | 2025-05-31 04:57 | PD.RESEVENT ---
Documentation for date of: 05/31/25 Event Note Event Note: Rapid response called at 2242 on 05/30 for patient in room 358 exhibiting some chest pain/pressure-like sensation. Patient seen and assessed in hospital bed, airway/breathing/circulation intact. Patient's vitals noted to be heart rate of 124, satting 97 on 7 L, blood pressure 140/93 with MAP of 103. EKG, troponin and lactic acid along with CBC ordered and were largely negative. Suspicion is the patient is having anxiety secondary to acute GI bleed and metastatic GI malignancy. Ordered morphine 1 mg IV and will continue to monitor the patient for any acute changes. Cristobal Bernal, DO PGY-2 Internal Medicine - GME
[2025-05-31] MEDS: HYDROMORPHONE HCL 2 MG TABLET 1 MG PO (06:53)
--- NOTE | 2025-05-31 07:22 | PC.NURSE ---
MRI department notified that MR enterography cannot be performed at this facility due to unavailability of necessary contrast medication and required equipment. Physician will be notified.
[2025-05-31 08:04] LABS: Basophils # (Auto) 0.1 Thou/mm3 (0.0-0.2); Basophils % (Auto) 1 % (0-2.5); Eosinophils # (Auto) 0.4 Thou/mm3 (0.0-0.5); Eosinophils % (Auto) 4 % (0-10); Hematocrit 24.2 % (41.0-53.0); Immature Granulocytes Auto 0.68 Thou/mm3 (0.00-0.00); Lymphocytes # (Auto) 1.8 Thou/mm3 (1.0-4.8); Lymphocytes % (Auto) 17 % (10-50); Mean Corpuscular HGB Conc 32.6 g/dl (31.0-37.0); Mean Corpuscular Hemoglobin 29.3 pg (25.0-35.0); Mean Corpuscular Volume 90 fL (80-100); Monocytes # (Auto) 1.1 Thou/mm3 (0.0-0.8); Monocytes % (Auto) 10 % (0-12); Neutrophils # (Auto) 6.4 Thou/mm3 (1.8-7.7); Neutrophils % (Auto) 61 % (37-80); Nucleated Red Blood Cell # 0.59 Thou/mm3 (0.00-0.00); Nucleated Red Blood Cell % 6 /100 WBC (0); RDW Standard Deviation 64.2 fL (35.1-43.9); Red Blood Count 2.70 Miln/mm3 (4.50-5.90); White Blood Count 10.4 Thou/mm3 (3.8-10.6)
--- NOTE | 2025-05-31 08:17 | PC.CC ---
Addendum entered by Brenda Simons RN 05/31/25 19:30: 1928: Called and spoke to Dr Bernal, informed him that pt will need to be re-reviewed at ICU level per [facility]. Addendum entered by Brenda Simons RN 05/31/25 18:42: Informed by tool and equipment rental clerk on floor that patient was upgraded to Telemetry. Confirmed at bedside by Charge nurse Rayna that patient is tele level in ICU. Called [facility] TC, clinical update provided to nurse Reed. Pt is now on HI-KIN N/C 40 L/min 60% fi02. She stated the case will now be presented to the radio electrician since ICU level is 25 L/min or more. Transfer packet taken back tot he transfer center. Accepted transfer was for Med surg level not tele/ICU. Addendum entered by Brenda Simons RN 05/31/25 18:02: transfer packet started w/ CD and taken to the floor. Addendum entered by Brenda Simons RN 05/31/25 15:34: 1534: transfer back agreement signed and faxed back to [facility]. Addendum entered by Brenda Simons RN 05/31/25 13:27: Second peer to peer discussion completed, pt accepted by Dr. Hassan (hospitalist) for transfer and Dr. Dorantes (GI) for consult. Per Gen in the TC, no bed availability at this time. He will keep us updated Addendum entered by Brenda Simons RN 05/31/25 12:34: 1225: received call from [facility], peer to peer completed between DR Hassan and Dr Lester. More information gathered. Dr. Hassan will present information to Dr. Dorantes (GI) [facility]. [facility] to call back with decision for transfer. Addendum entered by Brenda Simons RN 05/31/25 09:54: received call back from Reed / [facility] transfer center, she asked if CT enterography can be done here. Called CT and was informed they do not perform enterography with CT and MR. Called Reed back to inform her that we are unable. I also provided the information of who our hospitalist Dr. Lester spoke to this morning - Dr. France Nunes. Reed stated, GI can not admit and their hospitalist will review the case. She will call me back with a decision to accept or deny. Original Note: received called from bedside nurse Stephany and Dr. Stoddard informing that our MRI is unable to perform the MR enterography requested by [facility]. Called and spoke to Analy at the [facility] transfer center to inform her. She stated she will inform the nurse and will call me back.
[2025-05-31 08:19] LABS: Hemoglobin 7.9 g/dL (13.5-16.0)
[2025-05-31 08:20] LABS: Platelet Count 27 Thou/mm3 (140-440)
[2025-05-31 08:33] LABS: Alanine Aminotransferase 9 U/L (10-49); Albumin, Serum 3.3 gm/dL (3.5-5.0); Albumin/Globulin Ratio 1.4 (1.2-2.2); Alkaline Phosphatase 987 U/L (46-116); Anion Gap 7 (7-16); Aspartate Amino Transferase 20 U/L (0-34); BUN/Creatinine Ratio 25 Ratio (12-20); Bilirubin,Total 2.0 mg/dL (0.3-1.2); Blood Urea Nitrogen 10 mg/dL (9-23); Calcium 8.7 mg/dL (8.3-10.6); Calcium (Corrected) 9.3 mg/dL (8.5-10.1); Carbon Dioxide 29.2 mMol/L (20.0-31.0); Chloride 99 mMol/L (98-107); Creatinine (Component) 0.4 mg/dL (0.6-1.3); Estimated Creatinine Clearance 185.0 mL/min (>60); Globulin 2.4 gm/dL (2.3-3.5); Glucose 118 mg/dL (74-106); Magnesium 1.5 mg/dL (1.6-2.6); Osmolality,Calculated 270 (275-295); Phosphorous 4.2 mg/dL (2.4-5.1); Potassium 4.0 mMol/L (3.4-5.1); Sodium 135 mMol/L (136-145); Total Protein 5.7 gm/dL (5.7-8.2); eGFR > 60 See Note
--- NOTE | 2025-05-31 08:59 | XR_ITS ---
Examination: AP chest single view TECHNIQUE: AP portable semiupright chest single view Date and time: May 31, 2025, 0910 hours INDICATIONS: Chest pain this morning. FINDINGS: Extensive bilateral pneumonia, large layered left pleural fluid Right internal jugular Port-A-Cath tip right atrium. Prominent vascular congestion. Widespread osteoblastic metastatic disease IMPRESSION: Extensive bilateral pneumonia with large layered left pleural fluid
[2025-05-31 09:17] LABS: Slide Review Platelets confirmed
[2025-05-31 09:39] LABS: Troponin I < 0.020 ng/mL (0.0-0.045)
--- NOTE | 2025-05-31 10:01 | PC.SS ---
SS rounding note; Pending HLOC. Rapid called yesterday.
[2025-05-31] MEDS: fentaNYL 25 mCg TRANSDERMAL PATCH TOP (11:08)
[2025-05-31] MEDS: Magnesium Sulfate 4 GM Ivpb 4 GM/50 ML BAG IV ×2 (11:08→15:51)
--- NOTE | 2025-05-31 14:07 | PC.NURSE ---
Report given to HASEEB at [facility]. Patient was accepted, pending bed availability.
--- NOTE | 2025-05-31 14:11 | PC.NURSE ---
at bedside performing drainage of right Pleurex catheter. Vital signs continuously monitored throughout procedure. Patient is currently receiving platelets.
--- NOTE | 2025-05-31 14:29 | PD.RESDS ---
Planned Discharge Date 05/31/25 DS: Providers Provider Date of admission: 05/25/25 17:38 Primary care physician: Kenneth Baker PA-C Admitting Provider: Madan Bonds MD Attending Provider on Admission: Madan Bonds MD Consults: 05/25/25 16:30 Consult to Gastroenterology Stat Comment: Consulting Provider: Fer Watson 05/25/25 17:59 Consult to Oncology Stat Comment: GI cancer with mets. Consulting Provider: Bari Schwartz 05/25/25 21:30 Health Equity Referral - Nutrition Routine Comment: Positive screening for nutrition needs. 05/26/25 15:27 Referral Hospice Routine Comment: 05/27/25 08:41 Referral - Vulcanizer Routine Service Needed for Transfer: Gastroenterology Addl Comments:: 49 male with metastatic GI cancer presenting with GI bleed and hemorrhagic shock, now stable and needs a capsule endoscopy which is not provided at our facility. 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 He was recently discharged from hospice care on 05/15/2025 but returned to the ED on 05/25/2025 with profound weakness, melena for 2 weeks, and symptomatic anemia. In the ED, the patient was hypotensive (BP 90/57), tachycardic (HR 137), and had a hemoglobin of 4.7. He received 3 units of PRBCs, 2 units of platelets, and 1 unit of FFP. He was admitted to the ICU for management of hemorrhagic shock due to GI bleeding. GI and oncology were consulted. An EGD revealed mild gastritis and a normal esophagus/duodenum with no clear source of bleeding. The procedure was aborted early due to tachycardia. A nuclear medicine GI bleeding scan was also negative. The patient was downgraded to the floor on 05/27/2025. He continued to have ongoing melena and symptomatic anemia. Hgb remained unstable (trending 8.5 -> 7.9 -> 7.2), requiring additional transfusions of PRBCs and platelets. Thrombocytopenia progressed over the course of admission (Plt 129 -> 31 -> 27), prompting a platelet transfusion Oncology and GI continued to recommend capsule endoscopy to localize the bleeding source; however, this was not available at our facility. After multiple declines, [facility] accepted the patient for transfer. Air transfer is pending bed placement. The patient experienced multiple rapid responses during the hospitalization, including two episodes of tachycardia and one episode of chest pain. Cardiac workup including EKG, troponin, and lactate was negative and symptoms were attributed to pain and anxiety. In the final 24 hours prior to transfer, the patient developed worsening dyspnea and increased oxygen requirements. CXR showed extensive bilateral pneumonia and large right-sided pleural effusion. His existing right-sided PleurX catheter was drained, yielding 420 mL of fluid, with improvement in respiratory status afterward. Patient remains on 4L nasal cannula. Discharge Condition: Stable for air transport. Oxygen requirement on 4L nasal cannula. Tolerating oral intake. Alert and oriented. Pain controlled. Agrees with plan of care. Diagnosis during admission: #Gastrointestinal Bleed #Hemorrhagic Shock #Normocytic Normochromic Anemia #Thrombocytopenia #Metastatic Gastrointestinal Malignancy #Coagulopathy #Severe Pain (resolved) #Hyperbilirubinemia #Elevated Alkaline Phosphatase #History of Hospice Care ----- Plan discussed with attending physician Dr. Valerio and senior resident Dr. Isac MD PGY-1 Internal Medicine Time Spent with Patient Time attestation: Total time spent providing and/or coordinating discharge services: Time spent: Greater than 30 minutes Exam Vital Signs Temp Pulse Resp BP Pulse Ox O2 Del Method O2 Flow Rate 98.1 F 127 H 24 H 144/91 H 92 L Oxy Mask 6 05/31/25 13:31 05/31/25 13:05/31/25 13:31 05/31/25 13:31 05/31/25 13:05/31/25 08:00 05/31/25 13:31 Narrative Exam General: Cachectic, alert, appears fatigued and uncomfortable Neuro: A&O x3, no focal deficits HEENT: Moist mucosa, no scleral icterus CV: Tachycardic, regular rhythm, no murmurs Resp: Increased work of breathing, decreased breath sounds R>L, on 4L NC GI: Firm, non-tender, nondistended abdomen Ext: No edema, pulses 2+ Skin: Warm, dry Discharge Plan Plan Patient Disposition: [facility] Pt Being Transferred to: [facility] Service Needed for Transfer: Gastroenterology Patient condition on transfer: Stable and Benefits outweigh risks Prescriptions/Referrals Prescriptions/Med Rec: No Action morphine 100 mg/5 mL concentrate 10 - 20 mg PO .[id number] lorazepam [Lorazepam Intensol] 2 mg/mL concentrate 0.5 mg PO Q4H PRN (Reason: anxiety) hydromorphone [Dilaudid] 2 mg tablet 2 mg PO Q3H Referrals: Kenneth Baker PA-C [Primary Care Provider] - Patient/Caregiver Discharge Instructions Print Language: Swazi Stand Alone Forms: Jerica Award Info., Patient Portal Info Letter Discharge Order Discharge Orders: Discharge (Routine); Ordered 06/01/25 Ordered By: Vamsi Sequeira Quality Discharge Quality Measures VTE prophylaxis
--- NOTE | 2025-05-31 15:21 | EKG_ITS ---
[facility] (Formerly [facility]) Test Date: 2025-05-31 Pat Name: LYN ROJAS 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
--- NOTE | 2025-05-31 15:21 | XR_ITS ---
Examination: AP chest single view TECHNIQUE: AP portable chest single view Date and time: May 23, 2025 1528 hours INDICATIONS: Shortness of breath today COMPARISON: May 31, 2025 0910 hours FINDINGS: Extensive bilateral pneumonia Right Pleurx catheter satisfactory position Right internal jugular Port-A-Cath tip right atrium Layered fluid along the left lateral hemithorax stable IMPRESSION: Extensive bilateral pneumonia
[2025-05-31] MEDS: LORazepam 2 MG/ML VIAL 1 MG IVP ×2 (15:30→16:25)
[2025-05-31] MEDS: HYDROmorphone INJ 2 MG/ML VIAL 0.5 MG IVP ×2 (15:30→16:48)
[2025-05-31] MEDS: FUROSEMIDE INJ 10 MG/ML VIAL 2 ML 20 MG IVP (15:51)
[2025-05-31 15:53] LABS: Base Excess, Venous 4 (-3-3); O2 Saturation, Venous 70 % (96-97); PCO2, Venous 44 mmHg (36-56); PO2, Venous 34 mmHg (15-58); pH, Venous 7.42 (7.33-7.66)
[2025-05-31 15:57] LABS: Basophils # (Auto) 0.1 Thou/mm3 (0.0-0.2); Basophils % (Auto) 1 % (0-2.5); Eosinophils # (Auto) 0.4 Thou/mm3 (0.0-0.5); Eosinophils % (Auto) 3 % (0-10); Hematocrit 22.0 % (41.0-53.0); Immature Granulocytes Auto 0.70 Thou/mm3 (0.00-0.00); Lymphocytes # (Auto) 1.5 Thou/mm3 (1.0-4.8); Lymphocytes % (Auto) 13 % (10-50); Mean Corpuscular HGB Conc 32.7 g/dl (31.0-37.0); Mean Corpuscular Hemoglobin 29.1 pg (25.0-35.0); Mean Corpuscular Volume 89 fL (80-100); Monocytes # (Auto) 1.0 Thou/mm3 (0.0-0.8); Monocytes % (Auto) 9 % (0-12); Neutrophils # (Auto) 7.9 Thou/mm3 (1.8-7.7); Neutrophils % (Auto) 68 % (37-80); Nucleated Red Blood Cell # 0.81 Thou/mm3 (0.00-0.00); Nucleated Red Blood Cell % 7 /100 WBC (0); Platelet Count 88 Thou/mm3 (140-440); RDW Standard Deviation 63.2 fL (35.1-43.9); Red Blood Count 2.47 Miln/mm3 (4.50-5.90); White Blood Count 11.6 Thou/mm3 (3.8-10.6)
[2025-05-31] MEDS: METOPROLOL TARTRATE INJ 1 MG/ML AMP 5 ML 5 MG IVP (15:58)
[2025-05-31 15:59] LABS: Hemoglobin 7.2 g/dL (13.5-16.0)
[2025-05-31 16:16] LABS: Alanine Aminotransferase 14 U/L (10-49); Albumin, Serum 3.5 gm/dL (3.5-5.0); Albumin/Globulin Ratio 1.5 (1.2-2.2); Alkaline Phosphatase 976 U/L (46-116); Anion Gap 9 (7-16); Aspartate Amino Transferase 25 U/L (0-34); BUN/Creatinine Ratio 28 Ratio (12-20); Bilirubin,Total 2.0 mg/dL (0.3-1.2); Blood Urea Nitrogen 11 mg/dL (9-23); Calcium 8.7 mg/dL (8.3-10.6); Calcium (Corrected) 9.1 mg/dL (8.5-10.1); Carbon Dioxide 27.8 mMol/L (20.0-31.0); Chloride 95 mMol/L (98-107); Creatinine (Component) 0.4 mg/dL (0.6-1.3); Estimated Creatinine Clearance 185.0 mL/min (>60); Globulin 2.4 gm/dL (2.3-3.5); Glucose 127 mg/dL (74-106); Magnesium 1.7 mg/dL (1.6-2.6); Osmolality,Calculated 265 (275-295); Potassium 4.7 mMol/L (3.4-5.1); Sodium 132 mMol/L (136-145); Total Protein 5.9 gm/dL (5.7-8.2); Troponin I < 0.020 ng/mL (0.0-0.045); eGFR > 60 See Note
[2025-05-31] MEDS: IPRATROPIUM RT 0.5 MG/ 2.5 ML NEBU INH (16:24)
[2025-05-31] MEDS: FUROSEMIDE INJ 10 MG/ML 4ML VIAL 40 MG IVP ×2 (16:25→20:28)
--- NOTE | 2025-05-31 16:43 | PC.NURSE ---
Patient transferred to [facility]. Bedside report given to COURTNEY ruggiero.
--- NOTE | 2025-05-31 16:51 | PC.NURSE ---
PT ARRIVED TO ROOM. ON HIGH FLOW O2 AT 40L/M, 60 %. PT SPO2@ 98%. PT IS RECEIVING BLOOD AND MAGNESIUM AT THIS TIME. PT IS SHALLOW BREATHING AND AT BEDSIDE AT THIS TIME.
--- NOTE | 2025-05-31 16:53 | EVENTNT_ITS ---
Documentation for date of: 05/31/25 Event Note Event Note: RAPID response called at 16:35 for patient in room 358 due to persistent tachycardia (HR 140s?150s) and hypoxia. Patient was on 10L nasal cannula, saturating only 92%. On arrival, patient was alert, oriented, in moderate respiratory distress with visible increased work of breathing. Interventions performed at bedside: * 1 mg IV Dilaudid for pain * 2 mg IV Ativan for anxiety/dyspnea * High-flow nasal cannula initiated by RT * 5 mg IV Metoprolol for rate control * 60 mg IV Lasix total (divided or bolus as appropriate) for possible volume overload * Albuterol-ipratropium breathing treatment given * Upgraded to tele Patient is still demonstrating increased work of breathing and saturating around 92% on high-flow oxygen. The team is currently in discussion with the wind field manager regarding possible intubation. Patient and family are aware of current clinical status and have expressed agreement with escalation of care including intubation if necessary
--- NOTE | 2025-05-31 16:53 | PD.RESEVENT ---
Documentation for date of: 05/31/25 Event Note Event Note: RAPID response called at 16:35 for patient in room 358 due to persistent tachycardia (HR 140s?150s) and hypoxia. Patient was on 10L nasal cannula, saturating only 92%. On arrival, patient was alert, oriented, in moderate respiratory distress with visible increased work of breathing. Interventions performed at bedside: 1 mg IV Dilaudid for pain 2 mg IV Ativan for anxiety/dyspnea High-flow nasal cannula initiated by RT 5 mg IV Metoprolol for rate control 60 mg IV Lasix total (divided or bolus as appropriate) for possible volume overload Albuterol-ipratropium breathing treatment given Upgraded to tele Patient is still demonstrating increased work of breathing and saturating around 92% on high-flow oxygen. The team is currently in discussion with the sheet metal layout mechanic regarding possible intubation. Patient and family are aware of current clinical status and have expressed agreement with escalation of care including intubation if necessary
[2025-05-31] MEDS: ONDANSETRON INJ 2 MG/ML INJ 2 ML 4 MG IVP (17:21)
--- NOTE | 2025-05-31 17:30 | ESPR_ITS ---
<Statement entered by Pedro Valerio MD - 06/05/25 12:37> I reviewed above note and agree with findings and plans. I have also personally examined the patient with medicine team and went over assessment and plan with medical team including resident intern and resident physician. <Statement entered by Omid Segundo MD - 05/31/25 20:33> Patient seen and examined at bedside. I discussed and supervised with the resident intern physician who took care of this patient. I personally saw and examined the patient. I agree with most of the assessment and plan. Patient experienced deterioration with tachypnea, tachycardia, worsening pleuritic pain. AHRF with increasing O2 demand, placed on high-flow. Had 1 episode hematemesis. Given continued deterioration, ICU consulted, who agreed to intubate patient after discussion with patient and family. Plan of care discussed with attending Dr. Valerio. Omid Segundo MD PGY-2 Documentation for date of: 05/31/25 Subjective Subjective Interval history: Patient reports feeling the same today with persistent generalized pain (910). Denies dizziness, nausea, or vomiting. Continues to eat and drink without difficulty. Reports worsening shortness of breath and severe, bothersome cough. Stated that his breathing feels more difficult compared to prior days. Aware of and agrees with planned transfer to [facility]. No new complaints. Patient had a Rapid response called for tachycardia (HR 140?150s) and hypoxia (SpO2 92% on 10L NC); patient started on high-flow nasal cannula and treated with Dilaudid, Ativan, Lasix, metoprolol, and breathing treatment. Exam Vital Signs Temp Pulse Resp BP Pulse Ox O2 Del Method O2 Flow Rate 97.3 F 130 H 30 H 163/115 H 88 L Oxy Mask 10 05/31/25 16:51 05/31/25 16:51 05/31/25 16:51 05/31/25 16:51 05/31/25 16:51 05/31/25 08:00 05/31/25 16:51 FiO2 60 05/31/25 16:27 Narrative Exam General: Cachectic, visibly uncomfortable, increased work of breathing Neuro: A&O x3, no focal deficits HEENT: Moist mucous membranes, no nasal congestion CV: Tachycardic, regular rhythm, no murmurs Resp: Labored respirations, decreased breath sounds R>L, coarse cough, on high- flow O2; mild wheezing GI: Abdomen firm, non-tender, non-distended Extremities: No edema, 2+ pulses Skin: Warm, dry Psych: Anxious appearing, appropriate responses Objective Labs 05/31/25 15:35 05/31/25 15:35 Labs: Laboratory Results - last 24 hr 05/30/25 05/30/25 05/31/25 10:40 22:50 07:17 WBC 10.6 10.4 RBC 2.92 L 2.70 L Hgb 8.5 L 7.9 L Hct 25.9 L 24.2 L MCV 89 90 MCH 29.1 29.3 MCHC 32.8 32.6 RDW Std Deviation 62.3 H 64.2 H Plt Count 31 L D 27 L* Neut % (Auto) 61 61 Lymph % (Auto) 21 17 Sauk % (Auto) 7 10 Eos % (Auto) 4 4 Baso % (Auto) 1 1 Neut # (Auto) 6.5 6.4 Lymph # (Auto) 2.3 1.8 Sauk # (Auto) 0.8 1.1 H Eos # (Auto) 0.4 0.4 Baso # (Auto) 0.1 0.1 Immature Gran # (Auto) 0.64 H 0.68 H Absolute Nucleated RBC 0.53 H 0.59 H Immature Gran % 6 H 7 H Nucleated RBC % 5 H 6 H VBG pH VBG pCO2 VBG pO2 VBG O2 Sat (Isreal) VBG Base Excess Sodium 135 L 135 L Potassium 4.9 D 4.0 D Chloride 98 99 Carbon Dioxide 28.9 29.2 Anion Gap 8 7 BUN 12 10 Creatinine 0.5 L 0.4 L Estim Creat Clear Calc 148.0 185.0 eGFR > 60 > 60 BUN/Creatinine Ratio 24 H 25 H Glucose 127 H 118 H Calculated Osmolality 271 L 270 L Lactic Acid 1.3 Calcium 8.7 8.7 Corrected Calcium 9.1 9.3 Phosphorus 4.2 Magnesium 1.5 L Total Bilirubin 1.9 H 2.0 H AST 37 H 20 ALT 11 9 L Alkaline Phosphatase 1029 H 987 H D Troponin I < 0.020 < 0.020 Total Protein 6.0 5.7 Albumin 3.5 3.3 L Globulin 2.5 2.4 Albumin/Globulin Ratio 1.4 1.4 Lipase 35 Misc Test Result Platelets confirmed Platelets confirmed Blood Type A Positive Antibody Screen NEGATIVE Crossmatch See Detail Blood Bank Wristband ID Yes Blood Bank Comment PLATP Ready 05/31/25 15:35 WBC 11.6 H RBC 2.47 L Hgb 7.2 L Hct 22.0 L MCV 89 MCH 29.1 MCHC 32.7 RDW Std Deviation 63.2 H Plt Count 88 L D Neut % (Auto) 68 Lymph % (Auto) 13 Sauk % (Auto) 9 Eos % (Auto) 3 Baso % (Auto) 1 Neut # (Auto) 7.9 H Lymph # (Auto) 1.5 Sauk # (Auto) 1.0 H Eos # (Auto) 0.4 Baso # (Auto) 0.1 Immature Gran # (Auto) 0.70 H Absolute Nucleated RBC 0.81 H Immature Gran % 6 H Nucleated RBC % 7 H VBG pH 7.42 VBG pCO2 44 VBG pO2 34 VBG O2 Sat (Isreal) 70 L VBG Base Excess 4 H Sodium 132 L Potassium 4.7 D Chloride 95 L Carbon Dioxide 27.8 Anion Gap 9 BUN 11 Creatinine 0.4 L Estim Creat Clear Calc 185.0 eGFR > 60 BUN/Creatinine Ratio 28 H Glucose 127 H Calculated Osmolality 265 L Lactic Acid Calcium 8.7 Corrected Calcium 9.1 Phosphorus Magnesium 1.7 Total Bilirubin 2.0 H AST 25 ALT 14 Alkaline Phosphatase 976 H Troponin I < 0.020 Total Protein 5.9 Albumin 3.5 Globulin 2.4 Albumin/Globulin Ratio 1.5 Lipase Misc Test Result Blood Type Antibody Screen Crossmatch Blood Bank Wristband ID Blood Bank Comment ABG Interpretation ABG results: 05/31/25 15:35 VBG pH 7.42 VBG pCO2 44 VBG pO2 34 VBG Base Excess 4 H Quality Measures Quality Measures VTE prophylaxis Assessment & Plan Assessment Current Active Medications: Generic Name Dose Route Start Last Admin Trade Name Freq PRN Reason Stop Dose Admin Acetaminophen 650 mg 05/25/25 17:42 Acetaminophen 325 Mg Tablet PO 06/24/25 17:41 Q6H PRN Fever >101.5 Acetaminophen 650 mg 05/25/25 17:42 05/28/25 10:46 Acetaminophen 325 Mg Tablet PO 06/24/25 17:41 650 mg Q6H PRN Administration PAIN SCALE 1-3 (mild Hydrocodone Bitart/Acetaminophen 1 tab 05/29/25 14:09 05/31/25 02:39 Hydrocodone/Apap 10/325 Tab PO 06/02/25 17:41 1 tab Q4H PRN Administration Breakthrough Pain Dicyclomine HCl 10 mg 05/28/25 17:18 05/28/25 18:08 Dicyclomine 10 Mg Capsule PO 06/27/25 17:17 10 mg Q4HR PRN Administration CRAMPS Protocol Fentanyl 25 mcg 05/31/25 10:45 05/31/25 11:08 Fentanyl 25 Mcg Transdermal Patch TOP 06/05/25 10:44 25 mcg Q3D JUAN JOSE Administration Protocol Guaifenesin/Dextromethorphan 1 each 05/31/25 17:18 Guaifenesin/Dm Tablet PO 06/30/25 17:17 BID PRN COUGH Hydromorphone HCl 1 mg 05/30/25 13:37 05/31/25 06:53 Hydromorphone Hcl 2 Mg Tablet PO 06/04/25 13:27 1 mg Q4HR PRN Administration PAIN Hydroxyzine HCl 25 mg 05/31/25 09:00 Hydroxyzine Hcl 25 Mg Tablet PO 06/30/25 08:59 TID PRN ANXIETY Magnesium Sulfate 4 gm in 50 mls @ 12.5 mls/hr 05/31/25 15:39 05/31/25 15:51 Magnesium Sulfate Ivpb IV 05/31/25 19:38 12.5 mls/hr X1 ONE Administration Metoprolol Tartrate 25 mg 05/31/25 21:00 Metoprolol Tartrate 25 Mg Tablet PO 06/30/25 20:59 BID JUAN JOSE Morphine Sulfate 20 mg 05/30/25 13:28 05/31/25 12:46 Morphine Sulf Liqd 10 Mg/5 Ml Udc PO 06/04/25 10:10 20 mg Q4HR PRN Administration PAIN SCALE 4-10(Mod-Sev Ondansetron HCl 4 mg 05/25/25 17:42 05/25/25 18:48 Ondansetron Inj 2 Mg/Ml Inj 2 Ml IVP 06/24/25 17:41 4 mg Q6H PRN Administration NAUSEA OR VOMITING Protocol Pantoprazole Sodium 40 mg 05/25/25 21:00 05/31/25 08:49 Pantoprazole Inj 40 Mg Vial IVP 06/24/25 20:59 40 mg Q12HR JUAN JOSE Administration Plan 49M with metastatic GI cancer, ongoing GI bleed, anemia, and pleural effusion, had a rapid response today for tachycardia (HR 140?150s) and hypoxia (SpO2 92% on 10L NC); started on high-flow nasal cannula and treated with Dilaudid, Ativan, Lasix, metoprolol, and bronchodilators, now stable; accepted for transfer to [facility], pending bed. #Suspected Transfusion-Associated ARDS Progressive bilateral infiltrates noted over the past 4 CXRs with worsening hypoxia despite increasing oxygen support. Patient has received 6 units PRBCs total during admission. Now requiring high-flow nasal cannula, SpO2 ~92% with increased work of breathing. Concern for transfusion-associated ARDS vs multifactorial respiratory failure (including pneumonia and malignant effusion). Plan: * Management Rep consulted, intubation discussed with family * Continue high-flow nasal cannula, monitor for escalation * Continue Lasix for fluid offloading (60 mg IV given during RR) * Monitor ABG if respiratory status worsens * Trend CXR, monitor response to PleurX drainage * Consider infectious vs inflammatory ARDS overlap ? discuss empiric antibiotics if clinical suspicion increases * Patient and family in agreement with intubation if needed #Hypoxia and Respiratory Distress RR called for tachycardia (HR 140?150s) and hypoxia (SpO2 92% on 10L NC). CXR shows extensive bilateral pneumonia with large right pleural effusion. Patient now on high-flow nasal cannula. Drained 420 mL from PleurX catheter today with some symptomatic improvement. Plan: * Continue high-flow nasal cannula * Monitor O2 sats, RR, and WOB closely * Management Rep consulted for possible intubation * Continue PleurX drainage PRN #Severe Cough Patient has persistent, disruptive cough interfering with comfort and breathing. Plan: * Start mucinex * Consider low-dose morphine (2.5 mg PO/IV q6h PRN) for cough if mucinex * Administer albuterol-ipratropium breathing treatments q6h PRN * Continue Ativan PRN for anxiety-related cough triggers * Monitor for sedation or respiratory suppression #Thrombocytopenia Platelet count 27 this morning. Progressive decline throughout hospitalization. Plan: * 1U platelets transfused today * Monitor CBC daily * Avoid anticoagulants * Consider additional transfusion if Plt < 20 or bleeding #Acute GI Bleed (Melena) Ongoing GI bleeding with recurrent melena. EGD and nuclear scan unrevealing. Capsule endoscopy planned at outside facility. Plan: * Continue IV Pantoprazole * NPO pending transfer #Normocytic Normochromic Anemia Hgb trended from 8.5 -> 7.2 -> 8.5 -> 7.9; expect further monitoring. Plan: * given 1 unit PRBC * Hold iron until bleeding source is addressed #Metastatic GI Malignancy (likely small bowel) Advanced disease with liver, lung, bone mets. ALP 1014, CA 19-9 elevated. Transitioned off hospice prior to admission. Plan: * Symptom-directed care * Pain control (morphine/dilaudid PRN) * Oncology aware * Discuss goals of care if deterioration continues #Pain, Severe (07/14) Reported ongoing, generalized pain. Receiving both opioids and PRN anxiolytics. Plan: * Continue morphine 20 mg PO PRN or dilaudid 1 mg PO/IV PRN * Consider adjusting to scheduled if PRNs not adequate * Reassess every nursing shift #Coagulopathy INR stable at 1.3; mild elevation in PT/APTT Plan: * Continue to trend daily * No reversal needed unless active bleeding worsens #Chest Pain / Anxiety (Resolved) RR last night for chest pressure, thought secondary to pain and anxiety. Plan: * Continue Ativan PRN * No further cardiac workup needed unless recurrence Health Maintenance : Disposition: Accepted for transfer to [facility], pending bed placement; transfer via air transport Feeding: NPO pending transfer Thromboprophylaxis: SCDs only GI prophylaxis: Continue IV Pantoprazole Code Status: Full Code ? Patient and family informed and agree with intubation if needed ----- Plan discussed with attending physician Dr. Valerio and senior resident Dr. Isac MD PGY-1 Internal Medicine
--- NOTE | 2025-05-31 17:44 | XR_ITS ---
Examination: AP chest single view TECHNIQUE: AP portable semiupright chest single view Date and time: May 31, 2025 1758 hours Comparison May 31, 2025 1537 hours INDICATIONS: SOB today FINDINGS: There is extensive bilateral opacity consistent with pneumonia, associated heart failure not excluded although the heart does not shows significant enlargement Right internal jugular Port-A-Cath tip right atrium There is layered fluid along the lateral thoracic wall Pleurx catheter in stable position right base Please see the CT chest report May 07, 2025 IMPRESSION: Extensive bilateral pneumonia with possible associated heart failure Fluid is layered along the left lateral thoracic wall Consider repeat CT chest without contrast follow-up to compare with the May 07, 2025 exam
[2025-05-31 17:58] LABS: Lactate (Lactic Acid) 3.5 mMol/L (0.4-2.0)
[2025-05-31] MEDS: FAMOTIDINE INJ 10 MG/ML VIAL 2 ML 40 MG IVP (18:00)
[2025-05-31] MEDS: METOPROLOL TARTRATE INJ 1 MG/ML AMP 5 ML 2.5 MG IVP (18:02)
[2025-05-31 18:10] LABS: Reflex Lactate? Y
[2025-05-31 18:35] LABS: Base Excess 2 (-3-3); HCO3 28 mEq/L (20-26); Inspired Oxygen, FIO2 21 %; O2 Saturation 89 % (91-98); PCO2 46 mmHg (32.0-48.0); pH, Arterial 7.39 (7.35-7.45)
[2025-05-31 18:47] LABS: Allen Test Not Performed; PO2 60 mmHg (83-108); Puncture Site Right Radial
--- NOTE | 2025-05-31 19:01 | ESCONSULT_ITS ---
<Statement entered by Gen Villagomez MD - 06/02/25 07:29> I have discussed and was present for the essential components of the history, physical examination, diagnosis, and treatment plan with the resident. I agree with the patient's care as documented by the resident and amended herein by me. Gen Villagomez MD FACP. 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 Patient underwent EGD and colonoscopy during the last hospitalization, GI recommended tertiary care management, did have underlying bleeding from small bowel likely. He was initially admitted to ICU but then downgraded to telemetry after pRBC transfusion. During hospital stay he received total of 6 units PRBC, 1 unit FFP and 3 units platelets. Patient was discharged on hospice during last admission. GI is consulted during this admission they will consider further workup as needed but recommended transfer to tertiary center. Today patient developed significant respiratory distress with RR of 40 on high flow oxygen, ABG showed pH 7.39, pCO2 46, pO2 60. Transfusion associated pulmonary edema was suspected, ICU team was consulted. Prior to it he has failed BiPAP due to AMS and bloody emesis. Patient will be upgraded to intensive care unit for endotracheal intubation due to worsening respiratory failure, active bleeding and hemodynamic instability. Transfer to tertiary center is pending, patient was accepted to [facility] in [facility] however now needs to be reassessed for ICU transfer. cc:: cc: Madan Bonds MD Review of Systems Review of Systems ROS Unobtainable: due to endotracheal tube Exam Vital Signs Temp Pulse Resp BP Pulse Ox O2 Del Method O2 Flow Rate 99.1 F 135 H 27 H 113/93 H 94 L Oxy Mask 40 05/31/25 18:30 05/31/25 18:30 05/31/25 18:30 05/31/25 18:30 05/31/25 18:30 05/31/25 08:00 05/31/25 18:30 FiO2 60 05/31/25 18:02 Narrative Exam Gen: Well-developed and well-nourished male in moderate to severe respiratory distress. HEENT: NCAT, PERRLA, EOMI, MMM, anicteric conjunctivae. CVS: normal S1 and S2. Regular tachycardia. No M/R/G. Resp: crackles B/L. No rhonchi, rales, or wheezing. Abd: soft, non-tender, non-distended. BS+ in all 4 quadrants. MSK: Good ROM in BUE & BLE. No edema or rash. Neuro: CN II-XII grossly intact. Strength 5/5 in BUE & BLE. Unable to answer questions due to respiratory distress. Results Labs 06/01/25 04:58 06/01/25 04:58 Labs: Short CBC 05/30/25 05/31/25 05/31/25 Range/Units 22:50 07:17 15:35 WBC 10.6 10.4 11.6 H (3.8-10.6) Thou/mm3 Hgb 8.5 L 7.9 L 7.2 L (13.5-16.0) g/dL Hct 25.9 L 24.2 L 22.0 L (41.0-53.0) % Plt Count 31 L D 27 L* 88 L D (140-440) Thou/mm3 BMP 05/30/25 05/31/25 05/31/25 22:50 07:17 15:35 Sodium 135 L 135 L 132 L Potassium 4.9 D 4.0 D 4.7 D Chloride 98 99 95 L Carbon Dioxide 28.9 29.2 27.8 BUN 12 10 11 Creatinine 0.5 L 0.4 L 0.4 L Glucose 127 H 118 H 127 H Calcium 8.7 8.7 8.7 Cardiac Enzymes 05/30/25 05/31/25 05/31/25 Range/Units 22:50 07:17 15:35 Troponin I < 0.020 < 0.020 < 0.020 (0.0-0.045) ng/mL Liver Function 05/30/25 05/31/25 05/31/25 Range/Units 22:50 07:17 15:35 Total Bilirubin 1.9 H 2.0 H 2.0 H (0.3-1.2) mg/dL AST 37 H 20 25 (0-34) U/L ALT 11 9 L 14 (10-49) U/L Alkaline Phosphatase 1029 H 987 H D 976 H (46-116) U/L Albumin 3.5 3.3 L 3.5 (3.5-5.0) gm/dL ABG Interpretation ABG results: 05/31/25 05/31/25 15:35 18:22 ABG pH 7.39 ABG pCO2 46 ABG pO2 60 L ABG HCO3 28 H ABG O2 Saturation 89 L ABG Base Excess 2 VBG pH 7.42 VBG pCO2 44 VBG pO2 34 VBG Base Excess 4 H Quality Measures Quality Measures VTE prophylaxis Medications Home Medications and Allergies Home Medications ?Medication ?Instructions ?Recorded ?Confirmed ?Type hydromorphone 2 mg tablet 2 mg PO Q3H 05/27/25 5 History (Dilaudid) lorazepam 2 mg/mL oral concentrate 0.5 mg PO Q4H PRN a nxiety 05/27/25 05/27/25 History (Lorazepam Intensol) morphine 100 mg/5 mL oral 10 - 20 mg PO .m3zhtww 05/2705/27/25 History concentrate Allergies Allergy/AdvReac Type Severity Reaction Status Date / Time Penicillins Allergy Intermediate RASH Verified 05/25/25 13:29 Visit Medications Acetaminophen (Acetaminophen 325 Mg Tablet) 650 mg PO Q6H PRN PRN Reason: Fever >101.5 Stop: 06/24/25 17:41 Acetaminophen (Acetaminophen 325 Mg Tablet) 650 mg PO Q6H PRN PRN Reason: PAIN SCALE 1-3 (mild Stop: 06/24/25 17:41 Last Admin: 05/28/25 10:46 Dose: 650 mg Hydrocodone Bitart/Acetaminophen (Hydrocodone/Apap 10/325 Tab) 1 tab PO Q4H PRN PRN Reason: Breakthrough Pain Stop: 06/02/25 17:41 Last Admin: 05/31/25 02:39 Dose: 1 tab Dicyclomine HCl (Dicyclomine 10 Mg Capsule) 10 mg PO Q4HR PRN; Protocol PRN Reason: CRAMPS Stop: 06/27/25 17:17 Last Admin: 05/28/25 18:08 Dose: 10 mg Etomidate (Etomidate Inj 2 Mg/Ml Vial 10 Ml) 20 mg IVP X1 ONE Stop: 05/31/25 18:59 Fentanyl (Fentanyl 25 Mcg Transdermal Patch) 25 mcg TOP Q3D JUAN JOSE; Protocol Stop: 06/05/25 10:44 Last Admin: 05/31/25 11:08 Dose: 25 mcg Furosemide (Furosemide Inj 10 Mg/Ml 4ml Vial) 40 mg IVP X1 ONE Stop: 05/31/25 19:16 Guaifenesin/Dextromethorphan (Guaifenesin/Dm Tablet) 1 each PO BID PRN PRN Reason: COUGH Stop: 06/30/25 17:17 Hydromorphone HCl (Hydromorphone Hcl 2 Mg Tablet) 1 mg PO Q4HR PRN PRN Reason: PAIN Stop: 06/04/25 13:27 Last Admin: 05/31/25 06:53 Dose: 1 mg Hydroxyzine HCl (Hydroxyzine Hcl 25 Mg Tablet) 25 mg PO TID PRN PRN Reason: ANXIETY Stop: 06/30/25 08:59 Magnesium Sulfate (Magnesium Sulfate Ivpb) 4 gm in 50 mls @ 12.5 mls/hr IV X1 ONE Stop: 05/31/25 19:38 Last Admin: 05/31/25 15:51 Dose: 12.5 mls/hr Norepinephrine Bitartrate (Levophed In Ns 16mg/250ml) 16 mg in 250 mls @ 2.864 mls/hr IV .Q24H PRN; Protocol PRN Reason: PER PROTOCOL Stop: 06/30/25 18:59 Metoprolol Tartrate (Metoprolol Tartrate 25 Mg Tablet) 25 mg PO BID JUAN JOSE Stop: 06/30/25 20:59 Morphine Sulfate (Morphine Sulf Liqd 10 Mg/5 Ml Udc) 20 mg PO Q4HR PRN PRN Reason: PAIN SCALE 4-10(Mod-Sev Stop: 06/04/25 10:10 Last Admin: 05/31/25 12:46 Dose: 20 mg Ondansetron HCl (Ondansetron Inj 2 Mg/Ml Inj 2 Ml) 4 mg IVP Q6H PRN; Protocol PRN Reason: NAUSEA OR VOMITING Stop: 06/24/25 17:41 Last Admin: 05/25/25 18:48 Dose: 4 mg Pantoprazole Sodium (Pantoprazole Inj 40 Mg Vial) 40 mg IVP Q12HR JUAN JOSE Stop: 06/24/25 20:59 Last Admin: 05/31/25 08:49 Dose: 40 mg Rocuronium [place] (Rocuronium Inj 10 Mg/Ml Vial 10 Ml) 61 mg 1 mg/kg (61 mg) IV X1 ONE Stop: 05/31/25 18:59 Discontinued Medications Hydrocodone Bitart/Acetaminophen (Hydrocodone/Apap 10/325 Tab) 1 tab PO Q4H PRN PRN Reason: PAIN SCALE 4-6 (Moderate Stop: 05/30/25 17:41 Last Admin: 05/28/25 20:04 Dose: 1 tab Alprazolam (Alprazolam 0.25 Mg Tablet) 0.25 mg PO X1 ONE Stop: 05/31/25 14:21 Last Admin: 05/31/25 14:48 Dose: 0.25 mg Diphenhydramine HCl (Diphenhydramine Inj 50 Mg/Ml Vial) 12.5 mg IVP X1 ONE Stop: 05/31/25 17:53 Last Admin: 05/31/25 18:16 Dose: Not Given Famotidine (Famotidine Inj 10 Mg/Ml Vial 2 Ml) 40 mg IVP X1 ONE Stop: 05/31/25 17:16 Last Admin: 05/31/25 18:00 Dose: 40 mg Fentanyl Citrate (Fentanyl Cit Inj 50 Mcg/Ml Amp 2ml) 25 mcg IVP Q2M PRN PRN Reason: MODERATE SEDATION Furosemide (Furosemide Inj 10 Mg/Ml Vial 2 Ml) 20 mg IVP X1 ONE Stop: 05/31/25 15:45 Last Admin: 05/31/25 15:51 Dose: 20 mg Furosemide (Furosemide Inj 10 Mg/Ml Vial 2 Ml) 20 mg IVP X1 ONE Stop: 05/31/25 16:19 Last Admin: 05/31/25 18:16 Dose: Not Given Furosemide (Furosemide Inj 10 Mg/Ml 4ml Vial) 40 mg IVP X1 ONE Stop: 05/31/25 16:21 Last Admin: 05/31/25 16:25 Dose: 40 mg Guaifenesin/Dextromethorphan (Guaifenesin/Dm Tablet) 1 each PO X1 ONE Stop: 05/31/25 17:19 Last Admin: 05/31/25 18:03 Dose: Not Given Hydromorphone HCl (Hydromorphone Inj 2 Mg/Ml Vial) 2 mg IVP Q3HR PRN; Protocol PRN Reason: PAIN SCALE 4-6 (Moderate Stop: 06/04/25 09:33 Last Admin: 05/30/25 10:13 Dose: 2 mg Hydromorphone HCl (Hydromorphone Hcl 2 Mg Tablet) 1 mg PO Q4HR PRN PRN Reason: PAIN SCALE 4-6 (Moderate Stop: 06/04/25 13:27 Hydromorphone HCl (Hydromorphone Inj 2 Mg/Ml Vial) 0.5 mg IVP X1 ONE Stop: 05/31/25 15:24 Last Admin: 05/31/25 15:30 Dose: 0.5 mg Hydromorphone HCl (Hydromorphone Inj 2 Mg/Ml Vial) 0.5 mg IVP X1 ONE Stop: 05/31/25 16:22 Last Admin: 05/31/25 16:48 Dose: 0.5 mg Hydroxyzine HCl (Hydroxyzine Hcl 25 Mg Tablet) 25 mg PO X1 ONE Stop: 05/31/25 17:14 Last Admin: 05/31/25 18:16 Dose: Not Given Magnesium Sulfate (Magnesium Sulfate Ivpb) 4 gm in 50 mls @ 12.5 mls/hr IV X1 ONE Stop: 05/26/25 13:24 Last Admin: 05/26/25 11:27 Dose: 12.5 mls/hr Magnesium Sulfate (Magnesium Sulfate Ivpb) 4 gm in 50 mls @ 12.5 mls/hr IV X1 ONE Stop: 05/27/25 14:28 Last Admin: 05/27/25 10:53 Dose: 12.5 mls/hr Magnesium Sulfate (Magnesium Sulfate Ivpb) 4 gm in 50 mls @ 12.5 mls/hr IV X1 ONE Stop: 05/28/25 12:33 Last Admin: 05/28/25 10:41 Dose: 12.5 mls/hr Magnesium Sulfate (Magnesium Sulfate Ivpb) 4 gm in 50 mls @ 12.5 mls/hr IV X1 ONE Stop: 05/30/25 11:32 Last Admin: 05/30/25 08:07 Dose: 12.5 mls/hr Magnesium Sulfate (Magnesium Sulfate Ivpb) 4 gm in 50 mls @ 12.5 mls/hr IV X1 ONE Stop: 05/31/25 14:23 Last Admin: 05/31/25 11:08 Dose: 12.5 mls/hr Ipratropium [place] (Ipratropium Rt 0.5 Mg/ 2.5 Ml Nebu) 0.5 mg INH X1 ONE Stop: 05/31/25 16:20 Last Admin: 05/31/25 16:24 Dose: 0.5 mg Lorazepam (Lorazepam 2 Mg/Ml Vial) 1 mg IVP X1 ONE Stop: 05/31/25 15:22 Last Admin: 05/31/25 15:30 Dose: 1 mg Lorazepam (Lorazepam 2 Mg/Ml Vial) 1 mg IVP X1 ONE Stop: 05/31/25 16:20 Last Admin: 05/31/25 16:25 Dose: 1 mg Metoprolol Tartrate (Metoprolol Tartrate Inj 1 Mg/Ml Amp 5 Ml) 5 mg IVP X1 ONE Stop: 05/31/25 15:46 Last Admin: 05/31/25 15:58 Dose: 5 mg Metoprolol Tartrate (Metoprolol Tartrate Inj 1 Mg/Ml Amp 5 Ml) 2.5 mg IVP X1 ONE Stop: 05/31/25 17:16 Last Admin: 05/31/25 18:02 Dose: 2.5 mg Midazolam HCl (Midazolam Inj 1 Mg/Ml Vial 2 Ml) 2 mg IVP Q2M PRN PRN Reason: Moderate Sedation Morphine Sulfate (Morphine Sulf Inj 10 Mg/Ml Vial) 2 mg IVP X1 ONE Stop: 05/25/25 17:38 Last Admin: 05/25/25 18:47 Dose: 2 mg Morphine Sulfate (Morphine Sulf Inj 10 Mg/Ml Vial) 2 mg IVP Q2H PRN PRN Reason: PAIN SCALE 7-10 (Severe Stop: 05/30/25 17:41 Last Admin: 05/27/25 10:53 Dose: 2 mg Morphine Sulfate (Morphine Sulf Liqd 10 Mg/5 Ml Udc) 10 mg PO Q4HR PRN; Protocol PRN Reason: PAIN SCALE 7-10 (Severe Stop: 06/01/25 11:24 Last Admin: 05/30/25 18:11 Dose: 10 mg Morphine Sulfate (Morphine Sulf Inj 10 Mg/Ml Vial) 2 mg IVP X1 ONE Stop: 05/29/25 12:06 Last Admin: 05/29/25 12:19 Dose: 2 mg Morphine Sulfate (Morphine Sulf Liqd 10 Mg/5 Ml Udc) 15 mg PO Q4HR PRN PRN Reason: PAIN SCALE 4-10(Mod-Sev Stop: 06/04/25 10:10 Morphine Sulfate (Morphine Sulf Inj 10 Mg/Ml Vial) 1 mg IVP X1 ONE Stop: 05/30/25 22:56 Last Admin: 05/30/25 23:14 Dose: 1 mg Ondansetron HCl (Ondansetron Inj 2 Mg/Ml Inj 2 Ml) 4 mg IVP X1 ONE; Protocol Stop: 05/31/25 17:08 Last Admin: 05/31/25 17:21 Dose: 4 mg Pantoprazole Sodium (Pantoprazole Inj 40 Mg Vial) 40 mg IVP X1 ONE Stop: 05/25/25 16:30 Last Admin: 05/25/25 19:12 Dose: Not Given Pantoprazole Sodium (Pantoprazole Inj 40 Mg Vial) 80 mg IVP X1 ONE Stop: 05/25/25 17:09 Last Admin: 05/25/25 18:46 Dose: 80 mg Phytonadione (Phytonadione Inj 10 Mg/Ml Amp) 10 mg SC X1 ONE Stop: 05/25/25 18:02 Last Admin: 05/25/25 18:47 Dose: 10 mg Assessment & Plan Plan Patient is a 49-year-old male with past medical history of 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 He was initially admitted to ICU but then downgraded to telemetry after pRBC transfusion. During hospital stay he received total of 6 units PRBC, 1 unit FFP and 3 units platelets. Today patient developed significant respiratory distress and was upgraded to intensive care unit for endotracheal intubation due to worsening respiratory failure. Neuro: #Sedation. Sedation with midazolam, propofol and fentanyl to maintain RAAS -3. Cardiovascular: #Extensive tachycardia. Sinus tachycardia at 140s, likely due to respiratory distress and post intubation status. Plan: - monitor heart rate, improving on sedation. Respiratory: #Acute hypoxic respiratory failure. #Malignant pleural effusion, right s/p PleurX. #Intubated and mechanically ventilated. Patient had severe respiratory distress, ABG showed pH 7.39, pCO2 46, pO2 60. Due to rapidly worsening respiratory status and failure of BiPAP treatment decision was made to intubate patient. DDx: ARDS, TACO, TRALI. Over the hospital stay patient was developing worsening respiratory status, multiple CXRs showed developing bilateral infiltrates over the last several days. Today 400cc of fluid was removed from right PleurX catheter. Plan: - intubated and mechanically ventilated, settings AC CMV VC: TV 400, FiO2 100%, RR 16, PEEP 5. - maintain oxygen saturation above 92%. - pending repeat ABG. Gastrointestinal: #Acute GI Bleed. #Metastatic GI Malignancy (likely small bowel). Advanced disease with liver, lung, bone mets. ALP 1014, CA 19-9 elevated. Transitioned off hospice prior to admission. Ongoing GI bleeding with recurrent melena. EGD and nuclear scan unrevealing. Capsule endoscopy planned at outside facility. Plan: - Continue IV Pantoprazole 40 mg BID. - GI is following. - Transfer is pending. Renal: #Lactic acidosis. Likely due to underlying bleeding, most recent LA 3.5. Plan: - Continue trending lactic acid. - Pending repeat ABG. Endocrine: No active problem. Infectious Disease: No active problem. Hematology/Oncology: #Acute normocytic anemia 2/2 GI bleeding. Most recent Hgb 7.2, s/p 6 units of pRBCs transfusion. Pending repeat H&H, will transfuse if Hgb < 7. #Thrombocytopenia. Most recent PLT 88, s/p 3 units of PLT transfusion. Continue monitoring, transfuse as needed. #Mild leukocytosis. Most recent labs showed WBCs 11.6, will continue to monitor for now. Diet: NPO. Tubes: NG tube. Vasopressors: none. Sedation: midazolam, propofol and fentanyl. Lines: peripheral x4, pending central line. DVT prophylaxis: SCDs. GI prophylaxis: Protonix. Code status: FULL CODE. Disposition: ICU, pending transfer. Plan of care discussed with attending Dr. Villagomez. Vamsi Sequeira MD, PGY 3. Disclaimer: This note was dictated by speech recognition. Minor errors in abe teacher may be present due to voice recognition software.
[2025-05-31] MEDS: ETOMIDATE INJ 2 MG/ML VIAL 10 ML 20 MG IVP (19:25)
[2025-05-31] MEDS: ROCURONIUM INJ 10 MG/ML VIAL 10 ML 61 MG IV (19:26)
--- NOTE | 2025-05-31 19:28 | XR_ITS ---
Examination: AP chest single view TECHNIQUE: Portable AP sitting chest single view Date and time: May 31, 2025, 1936 hours Comparison May 31, 2025 1758 hours INDICATIONS: Hypoxic respiratory failure postintubation FINDINGS: The tracheal tube tip 3.5 cm above Mavis Extensive bilateral lung opacity again noted Right Pleurx catheter Intact osseous structures Orogastric tube in the stomach IMPRESSION: Extensive bilateral pneumonia again depicted. Tracheal tube tip 3.5 cm above mavis
[2025-05-31] MEDS: MIDAZOLAM/NS 100 MG IVPB 100 MG/100 ML BAG IV (19:32)
[2025-05-31] MEDS: fentaNYL 2,500 MCG/250 ML BAG 2,500 MCG/250 ML BAG IV (19:32)
--- NOTE | 2025-05-31 19:32 | PD.RESPROC ---
PROCEDURES: Procedure Date / Time 05/31/251931 Intubation Indication(s): acute Resp Failure Informed consent obtained: obtained from surrogate decision maker Time out done, and the following verified: correct patient, side and site, procedure, patient position and implants and/or equipment Sedative: etomidate Mg given: 20 Sedative #2: none Paralytic: rocuronium Mg given: 61 Laryngoscope: fiber optic video scope Assist device used: fiber optic device ET tube size: 7.5 ET tube uncuffed: No Tube secured depth (cm): 23 Tube secured location: teeth Tube placement confirmation: visualized tube passing through cords, equal breath sounds bilaterally, no breath sounds over epigastrium and confirmation by capnometry Patient tolerated procedure: well and no complications EBL(ml): 0 Intubation complications: none Additional comments: Procedure was performed under supervision of Dr Anna. Vamsi Sequeira MD, PGY 3. Disclaimer: This note was dictated by speech recognition. Minor errors in rivet catcher may be present due to voice recognition software.
--- NOTE | 2025-05-31 19:37 | PD.EDADDENDU ---
Emergency Room Addendum <Kristin Garcia - Last Filed: 05/31/25 19:43> Addendum Narrative: 191: Called to supervise intubation of patient in ICU Rm [id number] by resident physician. 1917: Arrived at bedside. 1926: Supervised successful intubation performed by resident physician Dr. Vamsi Bolton. Successful placement confirmed via CXR. Refer to Resident's procedure note for full procedure details. MD Attestation <Prashant Anna DO - Last Filed: 05/31/25 22:58> Attestation I was called to supervise intubation at this patient's bedside in the ICU. The patient was rapidly sequence and intubated using 20 mg of etomidate and 60 mg of rocuronium. With the assistance of the glide a scope the patient was intubated in a single attempt with a 7.5 endotracheal tube placed at 23 cm at the lips with equal breath sounds bilaterally and good color change with capnography. Patient will be sedated on fentanyl and Versed. Follow-up chest x-ray is pending.
--- NOTE | 2025-05-31 20:06 | PC.NURSE ---
Food Safety Officer interpreted for pt's to ask if she was okay with having her daughter Cayla as the pt's decision maker. was explained about the meaning of assigning someone as a decision maker for a pt. agrees with having her daughter as the pt's decision maker and she does agree with it. agrees with Edward decision of letting doctors proceed with intubation.
--- NOTE | 2025-05-31 20:11 | ESPR_ITS ---
Documentation for date of: 05/31/25 Subjective Subjective Interval history: Patient moved to the ICU because of the hypoxemia in the process of getting intubated He did get accepted at [facility] to the [facility] floor but now the dynamics have changed and he will need to get an ICU bed after intubation Exam Vital Signs Temp Pulse Resp BP Pulse Ox O2 Del Method O2 Flow Rate 99.1 F 144 H 27 H 113/93 H 100 Oxy Mask 40 05/31/25 18:30 05/31/25 19:44 05/31/25 18:30 05/31/25 18:30 05/31/25 19:44 05/31/25 08:00 05/31/25 18:30 FiO2 100 05/31/25 19:44 Objective Labs 05/31/25 15:35 05/31/25 15:35 Labs: Laboratory Results - last 24 hr 05/30/25 05/30/25 05/31/25 10:40 22:50 07:17 WBC 10.6 10.4 RBC 2.92 L 2.70 L Hgb 8.5 L 7.9 L Hct 25.9 L 24.2 L MCV 89 90 MCH 29.1 29.3 MCHC 32.8 32.6 RDW Std Deviation 62.3 H 64.2 H Plt Count 31 L D 27 L* Neut % (Auto) 61 61 Lymph % (Auto) 21 17 [place] % (Auto) 7 10 Eos % (Auto) 4 4 Baso % (Auto) 1 1 Neut # (Auto) 6.5 6.4 Lymph # (Auto) 2.3 1.8 [place] # (Auto) 0.8 1.1 H Eos # (Auto) 0.4 0.4 Baso # (Auto) 0.1 0.1 Immature Gran # (Auto) 0.64 H 0.68 H Absolute Nucleated RBC 0.53 H 0.59 H Immature Gran % 6 H 7 H Nucleated RBC % 5 H 6 H Puncture Site ABG pH ABG pCO2 ABG pO2 ABG HCO3 ABG O2 Saturation ABG Base Excess VBG pH VBG pCO2 VBG pO2 VBG O2 Sat (Isreal) VBG Base Excess FiO2 Sodium 135 L 135 L Potassium 4.9 D 4.0 D Chloride 98 99 Carbon Dioxide 28.9 29.2 Anion Gap 8 7 BUN 12 10 Creatinine 0.5 L 0.4 L Estim Creat Clear Calc 148.0 185.0 eGFR > 60 > 60 BUN/Creatinine Ratio 24 H 25 H Glucose 127 H 118 H Calculated Osmolality 271 L 270 L Lactic Acid 1.3 Calcium 8.7 8.7 Corrected Calcium 9.1 9.3 Phosphorus 4.2 Magnesium 1.5 L Total Bilirubin 1.9 H 2.0 H AST 37 H 20 ALT 11 9 L Alkaline Phosphatase 1029 H 987 H D Troponin I < 0.020 < 0.020 Total Protein 6.0 5.7 Albumin 3.5 3.3 L Globulin 2.5 2.4 Albumin/Globulin Ratio 1.4 1.4 Lipase 35 Misc Test Result Platelets confirmed Platelets confirmed Blood Type A Positive Antibody Screen NEGATIVE Crossmatch See Detail Blood Bank Wristband ID Yes Blood Bank Comment PLATP Ready 05/31/25 05/31/25 05/31/25 15:35 17:49 18:22 WBC 11.6 H RBC 2.47 L Hgb 7.2 L Hct 22.0 L MCV 89 MCH 29.1 MCHC 32.7 RDW Std Deviation 63.2 H Plt Count 88 L D Neut % (Auto) 68 Lymph % (Auto) 13 [place] % (Auto) 9 Eos % (Auto) 3 Baso % (Auto) 1 Neut # (Auto) 7.9 H Lymph # (Auto) 1.5 [place] # (Auto) 1.0 H Eos # (Auto) 0.4 Baso # (Auto) 0.1 Immature Gran # (Auto) 0.70 H Absolute Nucleated RBC 0.81 H Immature Gran % 6 H Nucleated RBC % 7 H Puncture Site Right Radial ABG pH 7.39 ABG pCO2 46 ABG pO2 60 L ABG HCO3 28 H ABG O2 Saturation 89 L ABG Base Excess 2 VBG pH 7.42 VBG pCO2 44 VBG pO2 34 VBG O2 Sat (Isreal) 70 L VBG Base Excess 4 H FiO2 21 Sodium 132 L Potassium 4.7 D Chloride 95 L Carbon Dioxide 27.8 Anion Gap 9 BUN 11 Creatinine 0.4 L Estim Creat Clear Calc 185.0 eGFR > 60 BUN/Creatinine Ratio 28 H Glucose 127 H Calculated Osmolality 265 L Lactic Acid 3.5 H Calcium 8.7 Corrected Calcium 9.1 Phosphorus Magnesium 1.7 Total Bilirubin 2.0 H AST 25 ALT 14 Alkaline Phosphatase 976 H Troponin I < 0.020 Total Protein 5.9 Albumin 3.5 Globulin 2.4 Albumin/Globulin Ratio 1.5 Lipase Misc Test Result Blood Type Antibody Screen Crossmatch Blood Bank Wristband ID Blood Bank Comment Impressions Impression: Adenocarcinoma of an unknown primary Acute hypoxic respiratory failure Small bowel bleed Continue supportive care ABG Interpretation ABG results: 05/31/25 05/31/25 15:35 18:22 ABG pH 7.39 ABG pCO2 46 ABG pO2 60 L ABG HCO3 28 H ABG O2 Saturation 89 L ABG Base Excess 2 VBG pH 7.42 VBG pCO2 44 VBG pO2 34 VBG Base Excess 4 H Assessment & Plan A&P Narrative 1. Suspected small bowel malignancy with active bleeding admitted with transfusions and other supportive care. 2. Briefly opted for hospice care but now admitted seeking regular care. 3. Nuclear medicine GI bleeding scan pending. Time Spent With Patient Time: Total time spent is greater than 50% in coordination of care (as documented) at patient's floor/unit and/or counseling patient:
[2025-05-31 20:18] LABS: Base Excess 1 (-3-3); HCO3 27 mEq/L (20-26); Inspired Oxygen, FIO2 21 %; PCO2 53 mmHg (32.0-48.0); PO2 233 mmHg (83-108); pH, Arterial 7.32 (7.35-7.45)
[2025-05-31 20:21] LABS: Allen Test Performed/OK; O2 Saturation 100 % (91-98); Puncture Site Right Radial
[2025-05-31] MEDS: PROPOFOL 1,000 MG IVPB 1,000 MG/100 ML VIAL 1.833 MG IV (20:35)
[2025-05-31 21:10] LABS: Lactate (Lactic Acid) 1.7 mMol/L (0.4-2.0)
[2025-05-31] MEDS: Norepinephrine/NS 16mg/250ml 16 MG/250 ML BAG 2.864 MG IV (21:13)
[2025-05-31 21:15] LABS: Basophils # (Auto) 0.1 Thou/mm3 (0.0-0.2); Basophils % (Auto) 1 % (0-2.5); Eosinophils # (Auto) 0.3 Thou/mm3 (0.0-0.5); Eosinophils % (Auto) 2 % (0-10); Hematocrit 25.6 % (41.0-53.0); Immature Granulocytes Auto 0.67 Thou/mm3 (0.00-0.00); Lymphocytes # (Auto) 1.0 Thou/mm3 (1.0-4.8); Lymphocytes % (Auto) 9 % (10-50); Mean Corpuscular HGB Conc 34.0 g/dl (31.0-37.0); Mean Corpuscular Hemoglobin 29.8 pg (25.0-35.0); Mean Corpuscular Volume 88 fL (80-100); Monocytes # (Auto) 0.8 Thou/mm3 (0.0-0.8); Monocytes % (Auto) 8 % (0-12); Neutrophils # (Auto) 8.3 Thou/mm3 (1.8-7.7); Neutrophils % (Auto) 74 % (37-80); Nucleated Red Blood Cell # 1.31 Thou/mm3 (0.00-0.00); Nucleated Red Blood Cell % 12 /100 WBC (0); RDW Standard Deviation 57.0 fL (35.1-43.9); Red Blood Count 2.92 Miln/mm3 (4.50-5.90); White Blood Count 11.2 Thou/mm3 (3.8-10.6)
[2025-05-31 21:22] LABS: Hemoglobin 8.7 g/dL (13.5-16.0); Platelet Count 79 Thou/mm3 (140-440)
[2025-05-31 21:34] LABS: Alanine Aminotransferase 15 U/L (10-49); Albumin, Serum 3.7 gm/dL (3.5-5.0); Albumin/Globulin Ratio 1.5 (1.2-2.2); Alkaline Phosphatase 985 U/L (46-116); Anion Gap 12 (7-16); Aspartate Amino Transferase 29 U/L (0-34); BUN/Creatinine Ratio 24 Ratio (12-20); Bilirubin,Total 2.8 mg/dL (0.3-1.2); Blood Urea Nitrogen 17 mg/dL (9-23); Calcium 9.1 mg/dL (8.3-10.6); Calcium (Corrected) 9.3 mg/dL (8.5-10.1); Carbon Dioxide 26.2 mMol/L (20.0-31.0); Chloride 97 mMol/L (98-107); Creatinine (Component) 0.7 mg/dL (0.6-1.3); Estimated Creatinine Clearance 105.7 mL/min (>60); Globulin 2.4 gm/dL (2.3-3.5); Glucose 150 mg/dL (74-106); Osmolality,Calculated 274 (275-295); Potassium 4.4 mMol/L (3.4-5.1); Sodium 135 mMol/L (136-145); Total Protein 6.1 gm/dL (5.7-8.2); eGFR > 60 See Note
[2025-05-31 21:46] LABS: B-Type Natriuretic Peptide 53 pg/mL (0-100); Slide Review Platelets confirmed
--- NOTE | 2025-05-31 21:57 | XR_ITS ---
Examination: AP pelvis single view TECHNIQUE: AP portable pelvis single view Date and time: May 31, 2025 1004 hours INDICATIONS: Status post femoral line placement FINDINGS: Right common femoral central line tip in the region of the inferior vena cava. Osteoblastic metastatic disease No fracture IMPRESSION: Right common femoral central line satisfactory position
--- NOTE | 2025-05-31 22:06 | PD.RESPROC ---
PROCEDURES: Procedure Date / Time 05/31/256 Central Line Placement Right Femoral: Indication(s): shock and poor, or inadequate peripheral venous access Informed consent obtained: obtained from surrogate decision maker Time out done, and the following verified: correct patient, side and site, procedure, patient position and implants and/or equipment Patient placed on monitor/pulse ox: Yes Hand Hygiene: scrub, soap & water and alcohol-based hand rub Max Sterile Barrier Techniques used: cap, mask, sterile gown, sterile gloves and sterile full body drape Central line prep: Povidone-Iodine 1%, Chlorhexidine scrub and sterile drapes applied Local anesthesia used: lidocaine 1% Amount of anesthesia used (mL): 10 Ultrasound used for placement: Yes Sterile Technique if Ultrasound used, including sterile gel: yes Central line lumen inserted: triple Post procedure: sutured in place, good blood return, all ports aspirated, flushed, capped and sterile dressing applied Post procedure x-ray: other Patient tolerated procedure: well and no complications EBL(ml): 5 Complications: none Procedure comment: Assessed patient's femoral vein using ultrasound; once good visualization noted, proceeded with procedure. Site was cleaned with chlorhexidine scrub and sterile technique was used throughout the procedure. Seldinger technique was used to access the femoral vein. No acute complications occurred after the procedure and patient tolerated well. X-ray was ordered which confirmed placement of line. Cristobal Bernal DO PGY-2 Internal Medicine - GME
[2025-06-01] VITALS (56 sets, daily range): BP systolic 83–123; BP diastolic 59–87; PULSE 99–117; RESP 15–35; TEMP 37.6–37.7; O2SAT 85–100
[2025-06-01 00:26] LABS: Hematocrit 26.8 % (41.0-53.0); Hemoglobin 9.0 g/dL (13.5-16.0)
[2025-06-01 00:29] LABS: Base Excess 1 (-3-3); HCO3 26 mEq/L (20-26); Inspired Oxygen, FIO2 21 %; O2 Saturation 92 % (91-98); PCO2 47 mmHg (32.0-48.0); PO2 61 mmHg (83-108); pH, Arterial 7.36 (7.35-7.45)
[2025-06-01 00:30] LABS: Allen Test Performed/OK; Puncture Site Right Radial
[2025-06-01] MEDS: PROPOFOL 1,000 MG IVPB 1,000 MG/100 ML VIAL 16.497 MG IV (01:00)
--- NOTE | 2025-06-01 04:06 | ESDS_ITS ---
<Statement entered by Gen Villagomez MD - 06/02/25 07:39> I have discussed and was present for the essential components of the history, physical examination, diagnosis, and treatment plan with the resident. I agree with the patient's care as documented by the resident and amended herein by me. Gen Villagomez MD FACP. Planned Discharge Date 06/01/25 DS: Providers Provider Date of admission: 05/25/25 17:38 Primary care physician: Kenneth Baker PA-C Admitting Provider: Madan Bonds MD Attending Provider on Admission: Madan Bonds MD Consults: 05/25/25 16:30 Consult to Gastroenterology Stat Comment: Consulting Provider: Fer Watson 05/25/25 17:59 Consult to Oncology Stat Comment: GI cancer with mets. Consulting Provider: Bari Schwartz 05/25/25 21:30 Health Equity Referral - Nutrition Routine Comment: Positive screening for nutrition needs. 05/26/25 15:27 Referral Hospice Routine Comment: 05/27/25 08:41 Referral - Aemt Routine Service Needed for Transfer: Gastroenterology Addl Comments:: 49 male with metastatic GI cancer presenting with GI bleed and hemorrhagic shock, now stable and needs a capsule endoscopy which is not provided at our facility. 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 Patient underwent EGD and colonoscopy during the last hospitalization, GI recommended tertiary care management, did have underlying bleeding from small bowel likely. He was initially admitted to ICU but then downgraded to telemetry after pRBC transfusion and improvement of hemodynamic parameters. During hospital stay he received total of 6 units PRBC, 1 unit FFP and 3 units platelets. GI was consulted during this admission they will consider further workup as needed but recommended transfer to tertiary center due to active GI bleeding and inconclusive results of endoscopy prior. Today patient developed significant respiratory distress with RR of 40 on high flow oxygen with FiO2 70%, ABG showed pH 7.39, pCO2 46, pO2 60. 400cc of fluid was removed from his right PleuriX catheter. Transfusion associated pulmonary edema or lung injury was suspected, ICU team was consulted. Prior to it he has failed BiPAP due to AMS and bloody emesis. Patient was upgraded to intensive care unit for endotracheal intubation due to worsening respiratory failure, active bleeding and hemodynamic instability. During ICU stay patient was started on Levophed and vasopressin due to worsening blood pressure, his hemoglobin remained stable overnight. Patient was accepted for transfer to [facility] due to ongoing GI bleeding with no clear source, [facility] team was contacted for ICU to ICU transfer. Time Spent with Patient Time attestation: Total time spent providing and/or coordinating discharge services: Time spent: Greater than 30 minutes Exam Vital Signs Temp Pulse Resp BP Pulse Ox O2 Del Method O2 Flow Rate 98.8 F 105 H 4 L 96/70 100 Mechanical Ventilation 40 05/31/25 22:45 06/01/25 03:30 05/31/25 19:30 06/01/25 03:30 06/01/25 03:30 05/31/25 22:45 05/31/25 18:30 FiO2 50 06/01/25 00:00 Narrative Exam Gen: Well-developed and well-nourished male, sedated and intubated. HEENT: NCAT, PERRLA, EOMI, MMM, anicteric conjunctivae. CVS: normal S1 and S2. Regular tachycardia. No M/R/G. Resp: crackles B/L. No rhonchi, rales, or wheezing. ET tube noted, on MV. Abd: soft, non-tender, non-distended. BS+ in all 4 quadrants. MSK: Good ROM in BUE & BLE. No edema or rash. Neuro: limited exam due to sedation. Discharge Plan Plan Patient Disposition: [facility] Pt Being Transferred to: [facility] Service Needed for Transfer: Gastroenterology Patient condition on transfer: Stable and Benefits outweigh risks Prescriptions/Referrals Prescriptions/Med Rec: No Action morphine 100 mg/5 mL concentrate 10 - 20 mg PO .[id number] lorazepam [Lorazepam Intensol] 2 mg/mL concentrate 0.5 mg PO Q4H PRN (Reason: anxiety) hydromorphone [Dilaudid] 2 mg tablet 2 mg PO Q3H Referrals: Kenneth Baker PA-C [Primary Care Provider] - Patient/Caregiver Discharge Instructions Print Language: Slovenian Stand Alone Forms: Jerica Award Info., Patient Portal Info Letter Discharge Order Discharge Orders: Discharge (Routine); Ordered 06/01/25 Ordered By: Vamsi Sequeira Quality Discharge Quality Measures VTE prophylaxis
[2025-06-01 04:25] LABS: Base Excess 1 (-3-3); HCO3 27 mEq/L (20-26); Inspired Oxygen, FIO2 21 %; PCO2 47 mmHg (32.0-48.0); PO2 79 mmHg (83-108); pH, Arterial 7.37 (7.35-7.45)
[2025-06-01 04:26] LABS: Allen Test Performed/OK; O2 Saturation 99 % (91-98); Puncture Site Left Radial
[2025-06-01] MEDS: VASOPRESSIN IN NS IVPB 20 UNIT/100 ML BAG 9 UNIT IV ×2 (04:43→10:48)
--- NOTE | 2025-06-01 04:43 | XR_ITS ---
Examination: AP chest single view Technique one AP portable semiupright chest single view Date and time: June 01, 2025, 0450 hours Comparison May 31, 2025 INDICATIONS: Hypoxic respiratory failure, pneumonia or ARDS pattern on earlier chest films this week. FINDINGS: Severe bilateral lung opacity Endotracheal tube tip 4.5 cm above mavis Stable cardiac contour. Orogastric tube is in the stomach, the tip is below the level of the film Right Pleurx catheter stable position Pleural disease layered along the left lateral thoracic wall IMPRESSION: Severe bilateral pneumonia/ARDS pattern remains
[2025-06-01 05:13] LABS: Basophils # (Auto) 0.2 Thou/mm3 (0.0-0.2); Basophils % (Auto) 2 % (0-2.5); Eosinophils # (Auto) 0.3 Thou/mm3 (0.0-0.5); Eosinophils % (Auto) 2 % (0-10); Hematocrit 23.3 % (41.0-53.0); Immature Granulocytes Auto 0.93 Thou/mm3 (0.00-0.00); Lymphocytes # (Auto) 3.1 Thou/mm3 (1.0-4.8); Lymphocytes % (Auto) 21 % (10-50); Mean Corpuscular HGB Conc 33.5 g/dl (31.0-37.0); Mean Corpuscular Hemoglobin 30.1 pg (25.0-35.0); Mean Corpuscular Volume 90 fL (80-100); Monocytes # (Auto) 1.7 Thou/mm3 (0.0-0.8); Monocytes % (Auto) 11 % (0-12); Neutrophils # (Auto) 8.7 Thou/mm3 (1.8-7.7); Neutrophils % (Auto) 58 % (37-80); Nucleated Red Blood Cell # 2.61 Thou/mm3 (0.00-0.00); Nucleated Red Blood Cell % 18 /100 WBC (0); RDW Standard Deviation 61.3 fL (35.1-43.9); Red Blood Count 2.59 Miln/mm3 (4.50-5.90); White Blood Count 14.9 Thou/mm3 (3.8-10.6)
[2025-06-01 05:18] LABS: Hemoglobin 7.8 g/dL (13.5-16.0); Platelet Count 54 Thou/mm3 (140-440)
[2025-06-01 05:19] LABS: Slide Review Platelets confirmed
--- NOTE | 2025-06-01 05:24 | PC.NURSE ---
Reached out to both [employer] and [employer] for possible flight transfer to [facility]. Per both companies, at this time they are declining due to Crew-Change/Duty-Times , but to check back @08:00 for any possible transfer opportunities at that time. Plan on care ongoing.
[2025-06-01 05:40] LABS: Alanine Aminotransferase 11 U/L (10-49); Albumin, Serum 3.2 gm/dL (3.5-5.0); Albumin/Globulin Ratio 1.3 (1.2-2.2); Alkaline Phosphatase 922 U/L (46-116); Anion Gap 11 (7-16); Aspartate Amino Transferase 37 U/L (0-34); BUN/Creatinine Ratio 21 Ratio (12-20); Bilirubin,Total 3.4 mg/dL (0.3-1.2); Blood Urea Nitrogen 15 mg/dL (9-23); Calcium 8.4 mg/dL (8.3-10.6); Calcium (Corrected) 9.0 mg/dL (8.5-10.1); Carbon Dioxide 26.5 mMol/L (20.0-31.0); Chloride 100 mMol/L (98-107); Creatinine (Component) 0.7 mg/dL (0.6-1.3); Estimated Creatinine Clearance 105.7 mL/min (>60); Globulin 2.5 gm/dL (2.3-3.5); Glucose 132 mg/dL (74-106); Magnesium 2.2 mg/dL (1.6-2.6); Osmolality,Calculated 276 (275-295); Phosphorous 4.8 mg/dL (2.4-5.1); Potassium 4.3 mMol/L (3.4-5.1); Sodium 137 mMol/L (136-145); Total Protein 5.7 gm/dL (5.7-8.2); eGFR > 60 See Note
[2025-06-01] MEDS: SODIUM CHLORIDE 0.9% 500 ML 500 ML 999 ML IV (05:45)
--- NOTE | 2025-06-01 06:00 | PD.RESPROC ---
PROCEDURES: Procedure Date / Time 06/01/25 0600 Procedure Narrative Procedure Narrative: Attending attestation: I was not present for procedure though I was notified of planned procedure and agree with documentation as per above. Arterial Line Indication(s): frequent arterial line sampling, hypoxic resp failure and shock Informed consent obtained: obtained from surrogate decision maker Time out done, and the following verified: correct patient, side and site, procedure, patient position and implants and/or equipment Size (Gauge): 20 Technique used: guide wire technique Post-Procedure: line sutured into place and dry sterile dressing placed Patient tolerated procedure: well EBL(ml): 10 Complications: none Site: right and radial Procedure comment: Procedure performed under supervision of Dr. Bonds. Vamsi Sequeira MD, PGY 3. Disclaimer: This note was dictated by speech recognition. Minor errors in health occupations teacher may be present due to voice recognition software.
[2025-06-01] MEDS: fentaNYL 2,500 MCG/250 ML BAG 2,500 MCG/250 ML BAG 25 MCG IV (06:45)
--- NOTE | 2025-06-01 07:45 | PC.CM ---
Addendum entered by Kerri Medley RN 06/01/25 11:52: I received a call from [facility] asking me to fax discharge summary to them. I faxed dc summary at this time. Addendum entered by Kerri Medley RN 06/01/25 09:07: [place] [facility] called [facility] and they will be landing at the airport around 0930. Packet given back to [facility]na with second packet for [facility]. I called [facility] and I let them know I was going to cancel them. Patient's family was notified by charge nurse that patient was going to be transferred. Addendum entered by Kerri Medley RN 06/01/25 08:21: I spoke to [facility] and they are checking with flight crew and they will call me back. I spoke to [facility] charge nurse and she states patient is on vent with tital volume at 340. Air team will need to bring their own propofol, fentanyl, and versed. Original Note: 07 I received report of patient and he has been accepted by [facility] to room 9 ICU Bed 9. [facility] called and they do not have a team available at this time. [place] [facility] will be availabe after 8am. I will set up transport and reach out to [facility].
[2025-06-01] MEDS: cefTRIAXone/D5w 1gm IV premix 1 GM/50 ML BAG IV (08:01)
[2025-06-01 08:05] LABS: D-Dimer 2320 ng/mL (<600)
[2025-06-01 08:19] LABS: Calcium, Ionized 4.4 mg/dL (4.6-5.6)
--- NOTE | 2025-06-01 08:35 | PC.NURSE ---
report given to dipti at [facility] at 0822, to go to ICU 16, flight team to be here in about an hour
[2025-06-01 08:44] LABS: Bilirubin,Direct 2.3 mg/dL (0.0-0.3); LDH (Lactate Dehydrogenase) 578 U/L (120-246)
[2025-06-01 09:03] LABS: Fibrinogen 207 mg/dL (175-375); INR 1.3 (0.9-1.3); Partial Thromboplastin Time 39.0 Seconds (22.0-36.0); Prothrombin Time 14.0 Seconds (9.0-12.2)
--- NOTE | 2025-06-01 09:05 | PC.SS ---
AUTISTIC TEACHER notified by charge nurse that patient has been accepted for transfer to [facility]. AUTISTIC TEACHER conducted phone contact with patient's spouse Jailene Méndez ; to provide update. At bedside with patient was daughter, Tanya Toscano. Update provided to family at bedside.
--- NOTE | 2025-06-01 09:12 | ESDS_ITS ---
Planned Discharge Date 06/01/25 DS: Providers Provider Date of admission: 05/25/25 17:38 Primary care physician: Kenneth Baker PA-C Admitting Provider: Madan Bonds MD Attending Provider on Admission: Madan Bonds MD Consults: 05/25/25 16:30 Consult to Gastroenterology Stat Comment: Consulting Provider: Fer Watson 05/25/25 17:59 Consult to Oncology Stat Comment: GI cancer with mets. Consulting Provider: Bari Schwartz 05/25/25 21:30 Health Equity Referral - Nutrition Routine Comment: Positive screening for nutrition needs. 05/26/25 15:27 Referral Hospice Routine Comment: 05/27/25 08:41 Referral - Stabilizer Operator Routine Service Needed for Transfer: Gastroenterology Addl Comments:: 49 male with metastatic GI cancer presenting with GI bleed and hemorrhagic shock, now stable and needs a capsule endoscopy which is not provided at our facility. 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 Patient underwent EGD and colonoscopy during the last hospitalization, GI recommended tertiary care management, did have underlying bleeding from small bowel likely. He was initially admitted to ICU but then downgraded to telemetry after pRBC transfusion and improvement of hemodynamic parameters. During hospital stay he received total of 6 units PRBC, 1 unit FFP and 3 units platelets. GI was consulted during this admission they will consider further workup as needed but recommended transfer to tertiary center due to active GI bleeding and inconclusive results of endoscopy prior. Today patient developed significant respiratory distress with RR of 40 on high flow oxygen with FiO2 70%, ABG showed pH 7.39, pCO2 46, pO2 60. 400cc of fluid was removed from his right PleuriX catheter. Transfusion associated pulmonary edema or lung injury was suspected, ICU team was consulted. Prior to it he has failed BiPAP due to AMS and bloody emesis. Patient was upgraded to intensive care unit for endotracheal intubation due to worsening respiratory failure, active bleeding and hemodynamic instability requiring vasopressors. During ICU stay patient was started on Levophed and vasopressin due to worsening blood pressure, his hemoglobin remained stable overnight. Patient was accepted for transfer to [facility] due to ongoing GI bleeding with no clear source, [facility] team was contacted for ICU to ICU transfer. Time Spent with Patient Time attestation: Total time spent providing and/or coordinating discharge services: Time spent: Greater than 30 minutes Exam Vital Signs Temp Pulse Resp BP Pulse Ox O2 Del Method O2 Flow Rate 99.7 F 105 H 18 108/78 94 L Mechanical Ventilation 40 06/01/25 08:00 06/01/25 09:00 06/01/25 06:00 06/01/25 09:00 06/01/25 09:00 06/01/25 08:00 05/31/25 18:30 FiO2 70 06/01/25 08:00 Narrative Exam GEN: Sedated, RASS -1, Intubated HEENT: NC/AC, Pupil's reactive bilaterally, oral mucosa dry, neck supple CVS: RRR, S1-S2 present, no murmurs appreciated RESP: CTAB GI: soft,non distended, non tender, NBS MSK: no lower extremity edema SKIN: warm and dry EDDY CURRENT INSPECTOR:Sedated, withdraw from pain, no fasial asymetry, able to move all 4 limbs Discharge Plan Plan Patient Disposition: [facility] Pt Being Transferred to: [facility] Service Needed for Transfer: Gastroenterology Patient condition on transfer: Stable and Benefits outweigh risks Prescriptions/Referrals Prescriptions/Med Rec: No Action morphine 100 mg/5 mL concentrate 10 - 20 mg PO .[id number] lorazepam [Lorazepam Intensol] 2 mg/mL concentrate 0.5 mg PO Q4H PRN (Reason: anxiety) hydromorphone [Dilaudid] 2 mg tablet 2 mg PO Q3H Referrals: Kenneth Baker PA-C [Primary Care Provider] - Patient/Caregiver Discharge Instructions Print Language: Gabonese Stand Alone Forms: Jerica Award Info., Patient Portal Info Letter Discharge Order Discharge Orders: Discharge (Routine); Ordered 06/01/25 Ordered By: Vamsi Sequeira Quality Discharge Quality Measures sepsis and none MD Attestestation MD Attestation I have reviewed and agree with the above documentation as per the resident, Melchor Marin MD. patient this morning seen prior to transfer to a tertiary facility. Patient on high vasopressor requirements, appropriate blood products were initiated as well as empiric antibiotics in case of superimposed infection/septic shock. Patient appropriately on vasopressin and Levophed. Sedation has been minimized with transition of propofol to Versed to avoid complicating hypotension. Ventilator adjustments made to ensure adequate recruitment with PEEP increased to 10 cmH2O. FiO2 was able to be weaned down to 40%. Medical transport team at bedside and plan of care was discussed with them including for transition to tertiary facility. They do have blood products available and we will continue patient on Levophed and vasopressin and route. Patient will be maintained on IV fentanyl and Versed for sedation. He does awake and is able to respond to verbal command. Patient with component of significant volume overload and we will going to administer Lasix but will defer this to the receiving team. Octreotide was also administered given source of bleeding is likely gastrointestinal tract. Patient will be evaluated at [facility] for small bowel hemorrhage as the etiology and appropriate treatment course. Patient has metastatic malignancy with unknown primary lung and gastrointestinal source seems to be the most likely. Patient's and daughter were at bedside throughout the morning and updated on plan of care including transfer. They remain appreciative for all care provided. Total time spent on discharge: I personally spent 50 minutes with coordination of care, directing plan of care, and counseling patient's family at bedside. This is exclusive of time spent teaching housestaff performing a separate billable procedures.
[2025-06-01] MEDS: FUROSEMIDE INJ 10 MG/ML 4ML VIAL 40 MG IVP (09:49)
[2025-06-01] MEDS: OCTREOTIDE ACET 50 MCG IV (09:50)
[2025-06-01 09:57] LABS: Base Excess 1 (-3-3); HCO3 27 mEq/L (20-26); Inspired Oxygen, FIO2 40 %; O2 Saturation 95 % (91-98); PCO2 45 mmHg (32.0-48.0); PO2 69 mmHg (83-108); pH, Arterial 7.38 (7.35-7.45)
[2025-06-01 10:03] LABS: Allen Test Not Performed; Puncture Site Arterial Line
[2025-06-01] MEDS: MIDAZOLAM INJ 1 MG/ML VIAL 2 ML 2 MG IVP (10:27)
[2025-06-01] MEDS: Norepinephrine/NS 16mg/250ml 16 MG/250 ML BAG 21.194 MG IV (10:44)
--- NOTE | 2025-06-01 13:09 | PC.NURSE ---
report given to Macie flight nurse at bedside, pt transfered to EMS wai banks transported at 1113
== END 2025-06-01 11:13 | disposition short-term general hospital (02) | DRG 240 ==
LOC: SERX 16:35 → SERHOLD 05-26 06:16 → S2SX 05-26 06:16 → S3NX 05-27 05:12 → S2NX 05-31 16:37 → S2SX 05-31 17:38
PROVIDERS: Nurse Practitioner Primary Care; Specialist; Student in an Organized Health Care Education/Training Program; Admitting Provider Internal Medicine Critical Care Medicine; Emergency Provider Emergency Medicine; PCP Physician Assistant; Visit Provider Internal Medicine Critical Care Medicine
PROC: 0DJ08ZZ Inspection of Upper Intestinal Tract, Via Natural or Artificial Opening Endoscopic (ICD-10-PCS; CPT 43239; principal; 2025-05-26 19:00)
DX: C16.9 Malignant neoplasm of stomach, unspecified (principal); C79.51 Secondary malignant neoplasm of bone; D63.8 Anemia in other chronic diseases classified elsewhere; D69.6 Thrombocytopenia, unspecified; R57.8 Other shock; D68.9 Coagulation defect, unspecified; C78.7 Secondary malignant neoplasm of liver and intrahepatic bile duct; Z88.0 Allergy status to penicillin; F41.9 Anxiety disorder, unspecified; D62 Acute posthemorrhagic anemia; J18.9 Pneumonia, unspecified organism; J91.0 Malignant pleural effusion; J96.01 Acute respiratory failure with hypoxia; J81.1 Chronic pulmonary edema; K29.71 Gastritis, unspecified, with bleeding; Z51.5 Encounter for palliative care; Z53.9 Procedure and treatment not carried out, unspecified reason
CPT/HCPCS: 36415; 36430; 36600; 71045; 72170; 78278; 80053; 81001; 82248; 82270; 82330; 82803; 83605; 83615; 83690; 83735; 83880; 84100; 84443; 84484; 85014; 85018; 85025; 85379; 85384; 85610; 85730; 86850; 86900; 86901; 86923; 86927; 86965; 87040; 87081; 87205; 93005; 93225; 94002; 94003; 94640; 94762; 96374; 96375; 96376; 99285; A4641; A9560; J0696; J1171; J1200; J1938; J2060; J2250; J2251; J2270; J2312; J2354; J2405; J2470; J2598; J2704; J3010; J3430; J3475; J3490; J7999; P9016; P9035; P9060; A9270

== ENCOUNTER 2025-07-16 08:28 | Outpatient (RCR) | payer MEDICAID, SELFPAY ==
--- NOTE | 2025-07-08 15:03 | CTCFLWUP_ITS ---
[facility] [address] [place], [place] [address] FOLLOW-UP NOTE Date: 07/08/2025 MR#: [id number] Name: LYN ROJAS : 1975 Dx: C78.00 Secondary malignant neoplasm of unspecified lung Identification. 49-year-old gentleman who was admitted with shortness of breath and chest CT showing large right pleural effusion with thoracentesis malignant carcinoma possible GI origin was diagnosed. CT also showed widespread osteoblastic mets disease. Patient was briefly on hospice as per family's wishes but revoked shortly thereafter. Upper endoscopy exam 05/10/2025 did not reveal any malignancies. After readmission to [facility] for melena and hemorrhagic shock was felt that the patient may have bleeding from the small bowel and was transferred to [facility]. Study of pleural fluid cytology 06/22/2025 revealed metastatic adenocarcinoma with comment suggesting possible gastric or pancre atobiliary origin however given the weak staining for CK7 lower GI primaries are not excluded. Due to presumed luminal GI cancer with extensive workup not having provided definitive diagnosis, patient was initiated on C1 of fluorouracil leucovorin and cetuximab only (no oxaliplatin due to thrombocytopenia) on 06/15/2025 with some improvement in blood counts and oxygen status. C2 day 1 06/29/2025 FOLFOX plus cefux started 06/29/2025. Per [facility] [facility] Biopsy of pleura [facility] 06/28/2025 pending and not available to us. along with CA 19?9 Next cycle of chemo recommended for Sunday, July 13, 2025 As I see patient today he appears very tired but comfortable. Not have any significant pain or respiratory symptoms. A#1. 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 A#2. Completed 2 cycles of of chemo per [facility] [place] [facility], although unable to administer encorafenib in the hospital. Next due cycle is 07/13/2025 according to notes from [facility]. A#3. Dr. Cody, medical oncologist, scheduled to see patient soon A#4. Biopsy of pleura at [facility] 06/28/2025 along with CA 19?9 reportedly will be sent. A#5. Patient on methadone 15 mg Q8 and oxycodone 15 mg 2 tabs every 4 as needed for breakthrough pain. Patient has some meds remaining and will contact me when this needs to be renewed. I will see patient in 3 months for pain management. Electronically signed by: Bari Schwartz M.D. 07/08/2025 3:00 PM
--- NOTE | 2025-07-14 12:26 | CTCFLWUP_ITS ---
Patient: GARCIA ROJAS : 1975 Page 4 of 6 FOLLOW UP NOTE DATE OF SERVICE: 07/14/2025 NAME: GARCIA ROJAS ACCOUNT: [id number] : 1975 AGE: 49 ONCOLOGY HISTORY: DIAGNOSIS: Secondary malignant neoplasm of unspecified lung [ICD10] C78.00 DATE OF DIAGNOSIS: February 2025 STAGE/TNM: Unknown at this time likely metastatic TREATMENT HISTORY: Care?Plan Start?Date Cycle Day Intent mFOLFOX7+?Cetuximab-?Kras,?Nras?wild?type 07/14/2025 1 14 Maintenance Snippet HISTORY OF PRESENT ILLNESS: Chief Complaint Shortness of breath with dry cough, weight loss of 20 pounds since 6 months ago, suspected cancer History of Present Illness Garcia Toscano, a 49-year-old male with a history of alcohol use, presents with concerns of weight loss, shortness of breath, and a dry cough. The patient reports losing approximately 20 pounds over the past 6 months, with his weight decreasing from 165 pounds to 145 pounds. He experiences shortness of breath accompanied by a dry cough. The patient's symptoms have prompted medical investigations, including a thoracentesis performed about 15 days ago to remove fluid from his lungs. He denies current smoking but reports a history of marijuana use about a year ago. The patient has a significant history of alcohol consumption, drinking about 7 beers a day since age 16 or 17. Recent imaging studies have revealed widespread disease in the bones, raising concerns for potential malignancy. The patient underwent a colonoscopy approximately a year ago, which was reported as negative. He denies any current episodes of vomiting blood or blood in his stool. 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 Patient had BRAF 600 E mutation and was started on FOLFOX plus cetuximab plus encorafenib. Patient did not receive oxaliplatin and encrofenib yeah he can be here Review of Systems General: Positive for weight loss (20 pounds). Respiratory: Positive for dry cough. Gastrointestinal: Negative for blood in stool. 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 SOCIAL HISTORY: Occupational?History:?Unemployed Education?Level:?Completed High School Marital?Status:? Tobacco?Pack?per?Day:?0 Tobacco?Use?Years:?0 ETOH?Use:?7?beers?a?day Drug?Note:?smoke?marijuana?a?yr?ago. Social?History?Note:?lives?with? MEDICATIONS: 1. acetaminophen - 325 mg 2 tab Every 6 Hours 2. Biotene Dry Mouth Oral Rinse - 5 cc Four times a day 3. Compazine - 10 mg 1 tab Every 6 Hours 4. doxycycline hyclate - 100 mg 1 Capsule Every 12 Hours 5. lansoprazole - 30 mg 1 Capsule Daily 6. Lidocaine Pain Relief - 4 % 3 Patch As directed 7. lorazepam - 0.5 mg 0.5 tab Every 4 Hours 8. oxycodone - 15 mg 2 tab Every 4 Hours 9. polyethylene glycol 3350 - 17 gram/dose 17 gm 10. senna - 8.6 mg 2 tab Twice a Day 11. Vitamin D2 - 1,250 mcg (50,000 unit) 1 Capsule Weekly 12. Zofran - 8 mg 1 tab Every 8 Hours Medications Last Reconciled by Shannon Lambert MD on 07/14/2025 ALLERGIES: PENICILLAMINE REVIEW OF SYSTEMS: A complete 14-point review of systems was performed and is negative except as noted in interval history. PHYSICAL EXAMINATION: VITAL SIGNS: Temperature?97.2, B/P?104/68, Oxygen?Saturation?92% Weight?119?lbs (Change?since?07/08/25:?-3?lbs) PAIN: 0 - No pain GENERAL APPEARANCE: Appears well, in no apparent distress, appropriately interactive. HEENT: Normocephalic, no temporal wasting, normal conjunctiva, no scleral icterus, normal hearing, lips without lesions, neck normal range of motion. CARDIOVASCULAR: Not assessed. PULMONARY: Normal respiratory effort, no respiratory distress or use of accessory muscles, speaking in full sentences, no tachypnea. EXTREMITIES: No pedal edema or cyanosis. SKIN: Normal skin appearance. NEUROLOGIC: Alert and oriented x4. PSHYCHIATRIC: Appropriate affect, mood normal, behavior normal, intact thought and speech. LABORATORY DATA: I have personally reviewed and interpreted each of the patient?s relevant lab tests, abnormal findings are below: Date 06/01/25 ??WHITE?BLOOD?COUNT?(Thou/mm3) 14.9?H ? ??RED?BLOOD?COUNT?(Miln/mm3) 2.59?L ? ??HEMOGLOBIN?(gm/dl) 7.8?L ? ??HEMATOCRIT?(%) 23.3?L ? ??PLATELET?COUNT?(Thou/mm3) 54?L ? ??NEUTROPHILS?%,?AUTO?(%) 58 ? ??LYMPH?%,?AUTO?(%) 21 ? ??NEUTROPHILS,?AUTO?(Thou/mm3) 8.7?H ? ??GLUCOSE,RANDOM?(mg/dL) 132?H ? ??BLOOD?UREA?NITROGEN?(mg/dL) 15 ? ??CREATININE?(mg/dL) 0.70 ? ??SODIUM?(mmol/L) 137 ? ??POTASSIUM?(mmol/L) 4.3 ? ??CHLORIDE?(mmol/L) 100 ? ??CrCl?(CandG)?(ml/min) 113.40 ? ??AST/SGOT?(Unit/L) 37?H ? ??ALT/SGPT?(Unit/L) 11 ? ??ALKALINE?PHOSPHATASE?(Unit/L) 922?H ? ??BILIRUBIN,?TOTAL?(mg/dL) 3.4?H ? ??PROTEIN?TOTAL?(gm/dl) 5.7 ? ??ALBUMIN,?SERUM?(gm/dl) 3.2?L ? ??GLOBULIN?(gm/dl) 2.5 ? ??ALBUMIN/GLOBULIN?RATIO 1.3 ? ??CALCIUM,?SERUM?(mg/dL) 8.4 ? ??CALCIUM?SERUM?(CORRECTED)?(mg/dL) 9.0 ? ??MAGNESIUM?(mg/dL) 2.2 ? ??LDH,?TOTAL?(Unit/L) ? 578?H ASSESSMENT/PLAN: Assessment and Plan: Garcia Toscano, a 49-year-old male with a history of heavy alcohol use, presents with suspected malignancy, weight loss, and shortness of breath. 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 origin Patient was seen at [facility] and started on FOLFOX plus cetuximab Patient also noted to have BRAF mutation Patient was supposed to get an encorafenib Will continue on the FOLFOX cetuximab plus encorafenib once treatment is approved at our [place] Patient have a port catheter and scheduled for cycle 2 at [facility] and advised to continue chemotherapy there until he gets approved here Need staging scans after cycle 3 Pleural Effusion Assessment: Patient reports a dry cough and has a history of pleural effusion, with the last thoracentesis performed and have bilateral chest tubes with the PleurX catheters. Patient's is draining pleural fluid and requesting for more gauge and other stuff needed for dressing changes Will place DME order. Advised them to follow-up pulmonology as it is beyond my practice. Pulmonary referral placed weight Loss Assessment: Patient reports significant weight loss of 20 pounds over the past 6 months, from a baseline of 165 pounds to the current weight of 145 pounds. This weight loss is likely related to the underlying malignancy. Plan: - Refer for nutrition consult - Monitor weight at follow-up visits History of Alcohol Abuse Assessment: Patient reports a history of heavy alcohol use, consuming approximately 7 beers daily since age 16 or 17. This long-term alcohol use puts the patient at increased risk for pancreatic cancer and other health complications. Plan: - [employer] on alcohol cessation - Consider referral to substance abuse treatment program if needed ORDERS: Order # Description [id number] Infusion 5 Hours [id number] Comprehensive Metabolic Panel - 12 + CBC with Auto Diff + CEA + CA 19-9 [id number] Comprehensive Metabolic Panel - 12 + CBC with Auto Diff [id number] Ferritin + Iron Panel + Reticulocyte Count + Vitamin B-12 + Folic Acid; Serum + Lactate Dehydrogenase (LDH) + Assay Of Haptoglobin Quant [id number] 2 Units PRBC [id number] Discontinue CIV Pump 7481242 Infusion 5 Hours 8351008 Discontinue CIV Pump 4440199 Infusion 5 Hours 0707730 Discontinue CIV Pump 0571315 Infusion 5 Hours 9174835 Discontinue CIV Pump 7311889 Infusion 5 Hours 4502353 Discontinue CIV Pump 1906145 Infusion 5 Hours 6012394 Discontinue CIV Pump 2012527 Infusion 5 Hours 2937947 Discontinue CIV Pump 1363449 Infusion 5 Hours 9519355 Discontinue CIV Pump 6721475 Infusion 5 Hours 4420712 Discontinue CIV Pump 4302051 Infusion 5 Hours 1401276 Discontinue CIV Pump 7361482 Infusion 5 Hours 4194201 Discontinue CIV Pump 6835421 Infusion 5 Hours 7099751 Discontinue CIV Pump 9047739 CBC + Comprehensive Metabolic Panel + CEA [id number] Lab Appointment [id number] Follow Up Appointment MD RETURN TO CLINIC: I reviewed the diagnosis, prognosis, and recommended treatment/procedure options with the patient (and/or their legal passenger relations representative), including the potential benefits, risks, side effects and alternative therapies. We also discussed the option of no treatment and the possibility of clinical trial participation, if applicable. All questions were addressed, and they demonstrated understanding. They provided informed consent to proceed with the proposed plan of care. BILLING AND COMPLIANCE: I reviewed external records from providers outside my specialty as summarized above. I spent a total of 50 minutes on this patient?s care on the day of their visit excluding time spent related to any billed procedures. This time includes time spent with the patient as well as time spent documenting in the medical record, reviewing patients records and tests, obtaining history, placing orders, communicating with other healthcare professionals, counseling the patient, family or caregiver, and/or care coordination for the diagnoses above. Electronically Signed by: Christopher Cody MD T: 12:23 PM CC: PCP: Kenneth Baker Referring: Kenneth Baker This document was completed utilizing speech recognition software. Grammatical errors, random word insertions, pronoun errors, and incomplete sentences are an occasional consequence of this system due to software limitations, ambient noise, and hardware issues. Any formal questions or concerns about the content, text or information contained within the body of this dictation should be directly addressed to the provider for clarification.
[2025-07-16 09:20] LABS: Immature Reticulocyte Fraction 23.5 % (2.3-13.4); Reticulocyte % (Auto) 3.9 % (0.5-1.5); Reticulocyte Absolute Auto 102.7 Biln/L (25.0-75.0); Reticulocyte Hgb Content 30.9 pg (28.0-35.0)
[2025-07-16 09:22] LABS: Basophils # (Auto) 0.1 Thou/mm3 (0.0-0.2); Basophils % (Auto) 1 % (0-2.5); Eosinophils # (Auto) 0.4 Thou/mm3 (0.0-0.5); Eosinophils % (Auto) 5 % (0-10); Hematocrit 26.1 % (41.0-53.0); Immature Granulocytes Auto 0.07 Thou/mm3 (0.00-0.00); Lymphocytes # (Auto) 1.7 Thou/mm3 (1.0-4.8); Lymphocytes % (Auto) 20 % (10-50); Mean Corpuscular HGB Conc 32.2 g/dl (31.0-37.0); Mean Corpuscular Hemoglobin 30.8 pg (25.0-35.0); Mean Corpuscular Volume 96 fL (80-100); Monocytes # (Auto) 0.9 Thou/mm3 (0.0-0.8); Monocytes % (Auto) 11 % (0-12); Neutrophils # (Auto) 5.3 Thou/mm3 (1.8-7.7); Neutrophils % (Auto) 62 % (37-80); Nucleated Red Blood Cell # 0.00 Thou/mm3 (0.00-0.00); Nucleated Red Blood Cell % 0 /100 WBC (0); Platelet Count 307 Thou/mm3 (140-440); RDW Standard Deviation 53.6 fL (35.1-43.9); Red Blood Count 2.73 Miln/mm3 (4.50-5.90); White Blood Count 8.5 Thou/mm3 (3.8-10.6)
[2025-07-16 09:33] LABS: Hemoglobin 8.4 g/dL (13.5-16.0)
[2025-07-16 09:50] LABS: Carcinoembryonic Antigen 2.4 ng/mL (0.0-5.0)
[2025-07-16 09:52] LABS: Folate 20.16 ng/mL (>5.38); Vitamin B12 843 pg/mL (211-911)
[2025-07-16 10:17] LABS: Alanine Aminotransferase 14 U/L (10-49); Albumin, Serum 2.8 gm/dL (3.5-5.0); Albumin/Globulin Ratio 1.6 (1.2-2.2); Alkaline Phosphatase 1034 U/L (46-116); Anion Gap 8 (7-16); Aspartate Amino Transferase 22 U/L (0-34); BUN/Creatinine Ratio 13 Ratio (12-20); Bilirubin,Total 0.3 mg/dL (0.3-1.2); Blood Urea Nitrogen < 5 mg/dL (9-23); Calcium 8.2 mg/dL (8.3-10.6); Calcium (Corrected) 9.2 mg/dL (8.5-10.1); Carbon Dioxide 34.0 mMol/L (20.0-31.0); Chloride 96 mMol/L (98-107); Creatinine (Component) 0.4 mg/dL (0.6-1.3); Globulin 1.7 gm/dL (2.3-3.5); Glucose 96 mg/dL (74-106); LDH (Lactate Dehydrogenase) 183 U/L (120-246); Osmolality,Calculated 272 (275-295); Potassium 3.8 mMol/L (3.4-5.1); Sodium 138 mMol/L (136-145); Total Protein 4.5 gm/dL (5.7-8.2); eGFR > 60 See Note
[2025-07-16 10:44] LABS: Ferritin 4688 ng/mL (10.5-307.3); Iron 73 mcg/dL (65-175); Percent Iron Saturation 57 % (20-55); Total Iron Binding Capacity 126 mcg/dL (250-425); Unsaturated Iron Binding 53 (225-295)
[2025-07-22 06:36] LABS: CA 19-9 Antigen* 3315 U/mL (<34); Haptoglobin* 233 mg/dL (43-212)
== END 2025-08-03 23:59 | disposition home or self-care (01) ==
LOC: SCTC 08:28
PROVIDERS: PCP Physician Assistant; Referring Provider Physician Assistant; Visit Provider Internal Medicine Hematology & Oncology
DX: C80.1 Malignant (primary) neoplasm, unspecified (principal); C79.51 Secondary malignant neoplasm of bone; J91.0 Malignant pleural effusion; F10.11 Alcohol abuse, in remission
CPT/HCPCS: 36591; 80053; 82378; 82607; 82728; 82746; 83010; 83540; 83550; 83615; 85025; 85046; 86301; 99212; 99213; A4216; J1642; G0463

== ENCOUNTER 2025-07-22 07:28 | Inpatient (IN) | payer MEDICAID, SELFPAY ==
[2025-07-22] VITALS (10 sets, daily range): BP systolic 113–145; BP diastolic 71–98; PULSE 102–118; RESP 19–39; TEMP 36.1–36.8; O2SAT 96–100; BMI 18.2
--- NOTE | 2025-07-22 07:52 | EKG_ITS ---
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
--- NOTE | 2025-07-22 07:52 | XR_ITS ---
Examination: AP chest single view Technique: AP portable upright chest single view Date and time: July 22, 2025 0804 hrs., Comparison June 01, 2025 Indications: Chest pain today. History recurrent malignant pleural effusions Findings: Extensive bilateral lung opacity No major cardiac enlargement Right internal jugular Port-A-Cath tip right atrium Osseous structures appear diffusely sclerotic Mild to moderate bilateral pleural disease Right apparent Pleurx catheter in hemithorax Impression: Prominent bilateral lung opacity most consistent with severe pneumonia ARDS Osseous structures appear mildly diffusely sclerotic, clinical correlation advised
[2025-07-22] MEDS: ASPIRIN 81 MG CHEW 324 MG PO (08:27)
[2025-07-22] MEDS: SODIUM CHLORIDE 0.9% 1000 ML 1,000 ML 999 ML IV (08:32)
[2025-07-22 09:07] LABS: Basophils # (Auto) 0.1 Thou/mm3 (0.0-0.2); Basophils % (Auto) 1 % (0-2.5); Eosinophils # (Auto) 0.1 Thou/mm3 (0.0-0.5); Eosinophils % (Auto) 1 % (0-10); Hematocrit 26.2 % (41.0-53.0); Immature Granulocytes Auto 0.06 Thou/mm3 (0.00-0.00); Lymphocytes # (Auto) 1.0 Thou/mm3 (1.0-4.8); Lymphocytes % (Auto) 11 % (10-50); Mean Corpuscular HGB Conc 30.9 g/dl (31.0-37.0); Mean Corpuscular Hemoglobin 30.3 pg (25.0-35.0); Mean Corpuscular Volume 98 fL (80-100); Monocytes # (Auto) 0.7 Thou/mm3 (0.0-0.8); Monocytes % (Auto) 8 % (0-12); Neutrophils # (Auto) 7.7 Thou/mm3 (1.8-7.7); Neutrophils % (Auto) 80 % (37-80); Nucleated Red Blood Cell # 0.00 Thou/mm3 (0.00-0.00); Nucleated Red Blood Cell % 0 /100 WBC (0); Platelet Count 358 Thou/mm3 (140-440); RDW Standard Deviation 54.4 fL (35.1-43.9); Red Blood Count 2.67 Miln/mm3 (4.50-5.90); White Blood Count 9.7 Thou/mm3 (3.8-10.6)
[2025-07-22 09:10] LABS: Hemoglobin 8.1 g/dL (13.5-16.0)
[2025-07-22 09:26] LABS: Alanine Aminotransferase 11 U/L (10-49); Albumin, Serum 2.8 gm/dL (3.5-5.0); Albumin/Globulin Ratio 1.8 (1.2-2.2); Alkaline Phosphatase 893 U/L (46-116); Anion Gap 5 (7-16); Aspartate Amino Transferase 21 U/L (0-34); BUN/Creatinine Ratio 13 Ratio (12-20); Bilirubin,Total 0.2 mg/dL (0.3-1.2); Blood Urea Nitrogen < 5 mg/dL (9-23); Calcium 8.5 mg/dL (8.3-10.6); Calcium (Corrected) 9.5 mg/dL (8.5-10.1); Carbon Dioxide 35.6 mMol/L (20.0-31.0); Chloride 98 mMol/L (98-107); Creatinine (Component) 0.4 mg/dL (0.6-1.3); Estimated Creatinine Clearance 170.1 mL/min (>60); Globulin 1.6 gm/dL (2.3-3.5); Glucose 105 mg/dL (74-106); Osmolality,Calculated 274 (275-295); Potassium 4.2 mMol/L (3.4-5.1); Sodium 139 mMol/L (136-145); Total Protein 4.4 gm/dL (5.7-8.2); Troponin I < 0.020 ng/mL (0.0-0.045); eGFR > 60 See Note
[2025-07-22] MEDS: ALBUTEROL RT 2.5 MG/0.5 ML NEBU 5 MG INH (09:48)
[2025-07-22] MEDS: DEXAMETHASONE SOD PHOS INJ 10 MG/ML VIAL IVP (09:53)
[2025-07-22 10:00] LABS: Base Excess, Venous 8 (-3-3); O2 Saturation, Venous 61 % (96-97); PCO2, Venous 51 mmHg (36-56); PO2, Venous 32 mmHg (15-58); pH, Venous 7.43 (7.33-7.66)
--- NOTE | 2025-07-22 10:00 | PC.NURSE ---
SPOKE W/MD SPAIN ABOUT POTENTIAL SEPSIS ALERT, HE SAID NO, HE BELIEVES IT IS RELATED TO HIS LUNG CANCER.
[2025-07-22 10:03] LABS: INR 1.2 (0.9-1.3); Prothrombin Time 13.0 Seconds (9.0-12.2)
--- NOTE | 2025-07-22 10:34 | XR_ITS ---
Examination: CT chest, without intravenous contrast. Sagittal and coronal 2-D reconstructions. Exam date and time: July 22, 2025 1110 hours INDICATIONS: Shortness of breath today, diagnosis malignant recurrent pleural effusions, 32 mm pulmonary mass in the right upper lobe COMPARISON: May 07, 2025 CTDI:vol (mGy) 10 DLP: (mGycm) 381 Technique: Multiple 3.0 mm axial sections of the chest to been obtained. Bone and lung density settings are obtained. Sagittal and coronal 2-D reconstructions have been obtained. Low dose protocols were performed. One or more of the following dose reduction techniques were used; automated exposure control, adjustment of the mA and/or KV according to patient size, use of iterative reconstruction technique. Findings: Moderate enlargement cardiac contour Prominent vascular congestion and extensive perihilar edema Superimposed extensive pneumonia in both lungs especially severe at the lung bases Right Pleurx catheter satisfactory position moderate right pleural fluid Left thorax catheter satisfactory position moderate to large left pleural effusion Atelectasis in the lower lung zones No visualized liver or splenic lesion IMPRESSION: Moderate heart failure Severe bilateral pneumonia Bilateral pleural fluid as above
[2025-07-22 10:51] LABS: Lactate (Lactic Acid) 1.1 mMol/L (0.4-2.0)
--- NOTE | 2025-07-22 11:24 | PD.EDCHEST ---
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 Worse with movements only lasting a few minutes. additionally reported through the night respiratory rate increased several times. Denies fevers, chills, vomiting, diarrhea, or urinary symptoms. Last chemo performed 3 weeks ago. Related Data Home Medications ?Medication ?Instructions ?Recorded ?Confirmed hydromorphone 2 mg tablet 2 mg PO Q3H 05/27/25 05/27/25 (Dilaudid) lorazepam 2 mg/mL oral concentrate 0.5 mg PO Q4H PRN anxiety 05/27/25 05/27/25 (Lorazepam Intensol) morphine 100 mg/5 mL oral 10 - 20 mg PO .[id number] 05/27/25 05/27/25 concentrate Allergies Allergy/AdvReac Type Severity Reaction Status Date / Time Penicillins Allergy Intermediate RASH Verified 07/22/25 07:45 Review of Systems Review of Systems Systems Reviewed: All systems reviewed, normal except as documented Past Medical History Past Medical History RESPIRATORY: Positive Pneumonia MUSCULOSKELETAL: Positive Musculoskeletal Disorders HEMATOLOGIC: Positive Anemia PSYCHO/SOCIAL: Positive Depression OTHER HISTORY: Positive Blood Transfusions, Chemotherapy, Cancer and Lung Cancer Surgical History SURGICAL: Negative Cardiac Surgery, Endocrine Surgery, Abdominal Surgery, Joint Replacement or Vasectomy Social History SMOKING STATUS: Never smoker SUBSTANCE USE: does not use ED Exam General Limitations: Present no limitations General appearance: Present alert and other (chronically ill appearing, thin male, oxygen in place) Head Head exam: Present atraumatic Eye Eye exam: Present normal appearance, PERRL and EOMI ENT ENT exam: Present normal exam, normal oropharynx and mucous membranes moist Neck Neck exam: Present normal inspection, full ROM and trachea midline Chest Chest inspection: Present normal inspection and symmetric chest wall rise Respiratory Respiratory exam: Present other (Bilateral rhonchi with expiratory wheezing, diminished breath sounds bilaterally. ) Cardiovascular Cardiovascular exam: Present tachycardia and normal heart sounds; Absent systolic murmur or diastolic murmur Abdominal Exam Abdominal exam: Present soft, normal bowel sounds and other (firm to palpation); Absent distention, tenderness, guarding, rebound or rigidity Extremities Exam Extremities exam: Present normal inspection and full ROM Back Exam Back exam: Present normal inspection and full ROM Neurological Exam Neurological exam: Present alert, oriented X3 and CN II-XII intact Psychiatric Psychiatric exam: Present normal affect and normal mood Skin Skin exam: Present warm, dry, intact and normal color Course Quality Measures none Orders Category Date Time Status COVID-19 Screening Questionnaire NOW Care 07/22/25 10:34 Active Head Piece Assembler STAT Care 07/22/25 07:52 Active Continuous Pulse Oximetry ONCE Care 07/22/25 07:52 Active Decision to Admit X1 Care 07/22/25 10:34 Completed EKG (ED ONLY) *Do not use* NOW Care 07/22/25 07:52 Completed Insert IV STAT Care 07/22/25 07:[address] chest wo con Stat Exams 07/22/25 10:34 Completed EKG (ED Only) Stat Exams 07/22/25 07:52 Draft XR chest 1V portable Stat Exams 07/22/25 07:52 Completed Blood Culture (Lab) Stat Lab 07/22/25 10:42 Received CBC Stat Lab 07/22/25 08:45 Completed Comprehensive Metabolic Panel Stat Lab 07/22/25 08:45 Completed Lactic Acid [Lactate (Lactic Acid)] Stat Lab 07/22/25 10:44 Completed Prothrombin Time with INR Stat Lab 07/22/25 08:45 Completed Troponin I Stat Lab 07/22/25 08:45 Completed Venous Blood Gas Stat Lab 07/22/25 09:48 Completed ALBUTEROL RT 0.5ml [Proventil Rt 0.5ml] Med 07/22/25 10:00 Discontinued 5 mg INH X1 ONE Aspirin Chew Med 07/22/25 07:52 Discontinued 324 mg PO X1 ONE Azithromycin Inj [Zithromax Inj] 500 mg Med 07/22/25 10:26 Discontinued Sodium Chloride 0.9% 250 ml [Ns] 250 ml IV X1 Dexamethasone Inj [Decadron Inj] Med 07/22/25 09:32 Discontinued 10 mg IVP X1 ONE Sodium Chloride 0.9% 1000 ml [Ns] 1,000 ml Med 07/22/25 07:52 Discontinued IV 999 mls/hr cefTRIAXone [Rocephin] 2 gm Med 07/22/25 10:26 Discontinued SODIUM CHLORIDE 0.9% (Popper) [Ns 0.9% (P)] 50 ml IV X1 BiPAP / CPAP NOW RT 07/22/25 09:32 Active Oxygen Delivery NOW RT 07/22/25 07:52 Active Vital Signs Vital signs: Vital Signs Temperature 98.3 F 07/22/25 07:39 Pulse Rate 116 H 07/22/25 07:39 Respiratory Rate 23 H 07/22/25 07:39 Blood Pressure 113/71 07/22/25 07:39 Pulse Oximetry (%) 98 07/22/25 07:39 Oxygen Delivery Method Nasal Cannula 07/22/25 07:39 Oxygen Flow Rate 3 07/22/25 07:39 Pulse ox is 98% on 3L nasal cannula which is adequate. Chest Pain MDM Narrative MDM Narrative:: I was called to bedside by RN about 45 minutes after arriving. Patient in respiratory distress and found sitting at the edge of the bed with accessory muscle use. The patient was given Albuterol and Decadron. Discussed possible need for BiPAP if symptoms did not improve after breathing treatment. Symptoms did not improve after breathing treatments and placed on BiPAP. Patient was admitted to hospitalist team A. 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 Sinus tachycardia, rate 103, no acute ischemic changes, no STEMI. ) Lab and/or radiology exams considered but not ordered:: None Interpretation Summary: Ordering Physician: Wing Bess MD Date of Service: 07/22/25 Procedure(s): XR chest 1V portable Accession Number(s): [id number] cc: Wing Bess MD; Zachary Garcia MD~ Examination: AP chest single view Technique: AP portable upright chest single view Date and time: July 22, 2025 0804 hrs., Comparison June 01, 2025 Indications: Chest pain today. History recurrent malignant pleural effusions Findings: Extensive bilateral lung opacity No major cardiac enlargement Right internal jugular Port-A-Cath tip right atrium Osseous structures appear diffusely sclerotic Mild to moderate bilateral pleural disease Right apparent Pleurx catheter in hemithorax Impression: Prominent bilateral lung opacity most consistent with severe pneumonia ARDS Osseous structures appear mildly diffusely sclerotic, clinical correlation advised Dictated By: Zachary Garcia MD Signed By: <Electronically signed by Zachary Garcia MD in OV> 07/22/25 0816 Ordering Physician: Wing Bess MD Date of Service: 07/22/25 Procedure(s): CT chest wo con Accession Number(s): [id number] cc: Wing Bess MD; Zachary Garcia MD; NO PRIMARY/FAMILY,PHYSICIAN~ Examination: CT chest, without intravenous contrast. Sagittal and coronal 2-D reconstructions. Exam date and time: July 22, 2025 1110 hours INDICATIONS: Shortness of breath today, diagnosis malignant recurrent pleural effusions, 32 mm pulmonary mass in the right upper lobe COMPARISON: May 07, 2025 CTDI:vol (mGy) 10 DLP: (mGycm) 381 Technique: Multiple 3.0 mm axial sections of the chest to been obtained. Bone and lung density settings are obtained. Sagittal and coronal 2-D reconstructions have been obtained. Low dose protocols were performed. One or more of the following dose reduction techniques were used; automated exposure control, adjustment of the mA and/or KV according to patient size, use of iterative reconstruction technique. Findings: Moderate enlargement cardiac contour Prominent vascular congestion and extensive perihilar edema Superimposed extensive pneumonia in both lungs especially severe at the lung bases Right Pleurx catheter satisfactory position moderate right pleural fluid Left thorax catheter satisfactory position moderate to large left pleural effusion Atelectasis in the lower lung zones No visualized liver or splenic lesion IMPRESSION: Moderate heart failure Severe bilateral pneumonia Bilateral pleural fluid as above Dictated By: Zachary Garcia MD Signed By: <Electronically signed by Zachary Garcia MD in OV> 07/22/25 1151 Medications / Prescriptions Medications or Prescriptions considered but not ordered:: None Medication administrations:: Medication Administration History Azithromycin 250 mg/ Sterile (Water 2.5 ml/ Sodium Chloride) 252.5 mls @ 252.5 mls/hr IV QDAY [facility]SE Stop: 07/29/25 08:59 Ceftriaxone Sodium/Dextrose (Rocephin/D5w 1gm Iv Premix) 1 gm in 50 mls @ 100 mls/hr IV QDAY [facility] Stop: 07/30/25 08:59 Methadone HCl (Methadone Hcl 10 Mg Tablet) 15 mg PO Q8HR JUAN JOSE Stop: 07/27/25 13:59 Discontinued Medications Albuterol (Albuterol Rt 2.5 Mg/0.5 Ml Nebu) 5 mg INH X1 ONE Stop: 07/22/25 10:01 Last Admin: 07/22/25 09:48 Dose: 5 mg Documented By: VALERY Aspirin (Aspirin 81 Mg Chew) 324 mg PO X1 ONE Stop: 07/22/25 07:53 Last Admin: 07/22/25 08:27 Dose: 324 mg Documented By: TM Dexamethasone Sodium Phosphate (Dexamethasone Sod Phos Inj 10 Mg/Ml Vial) 10 mg IVP X1 ONE Stop: 07/22/25 09:33 Last Admin: 07/22/25 09:53 Dose: 10 mg Documented By: TM Sodium Chloride (Ns) 1,000 mls @ 999 mls/hr IV .Q1H1M ONE Stop: 07/22/25 08:52 Last Infusion: 07/22/25 09:33 Dose: Infused Documented By: Admin: 07/22/25 08:32 Dose: 999 mls/hr Documented By: TM Ceftriaxone Sodium 2 gm/ (Sodium Chloride) 50 mls @ 100 mls/hr IV X1 ONE Stop: 07/22/25 10:55 Last Infusion: 07/22/25 12:08 Dose: Infused Documented By: Admin: 07/22/25 11:38 Dose: 100 mls/hr Documented By: TM Azithromycin 500 mg/ Sodium (Chloride) 250 mls @ 250 mls/hr IV X1 ONE Stop: 07/22/25 11:25 Last Infusion: 07/22/25 12:39 Dose: Infused Documented By: Admin: 07/22/25 11:39 Dose: 250 mls/hr Documented By: LONNY See above Consultations Consultation(s) initiated? (list below): Yes Consultation #1 (Physician, Specialty, Details): I spoke with hospitalist team A regarding admission. Diagnosis Chest Pain Differential Diagnosis: stable angina, unstable angina pectoris, atypical chest pain, st elevation myocardial infarction, costochondritis, chest pain and biliary colic Most likely diagnosis given after review of the tests above:: Chest pain Pneumonia Carcinoma metastatic to lung Respiratory failure Admission Indicated Admission indicated?: indicated Admission Request Was there a request for admission?: Yes Admission Attestation Admission request attestation: Discussed case with [] from Hospitalist service regarding admission. Discussed patients ED course, exam findings, labs, and radiology results. The Hospitalist [agrees,declines] to accept the patient for admission. Disposition Plan Disposition Plan: Admit Critical Care Time Critical Care Time Critical Care Time: Yes Total Critical Care Time (min.): 35 Attestation: The high probability of sudden, clinically significant deterioration in the patient's condition required the highest level of my preparedness to intervene urgently. The services I provided to this patient were to treat and/or prevent clinically significant deterioration. Services included the following: chart data review, reviewing nursing notes and/or old charts, documentation time, client experience consultant collaboration regarding findings and treatment options, medication orders and management, direct patient care, vital sign assessments and ordering, interpreting and reviewing diagnostic studies and lab tests. Aggregate critical care time includes only time during which I was engaged in work directly related to the patient's care, as described above, whether at bedside or elsewhere in the Emergency Department. It did not include time spent performing other reported procedures or the services of residents, students, nurses or physician assistants. Discharge Plan Plan Patient Disposition: Admit Acute Care w/in Hospital Problem List Clinical Impression: Chest pain, Pneumonia, Carcinoma metastatic to lung, Respiratory failure
[2025-07-22] MEDS: cefTRIAXone 2 GM in SODIUM CHLORIDE 0.9% (Popper) 50 ML IV (11:38)
[2025-07-22] MEDS: AZITHROMYCIN INJ 500 MG in SODIUM CHLORIDE 0.9% 250 ML 250 ML 250 MG IV (11:39)
--- NOTE | 2025-07-22 13:15 | PD.RESHP ---
Documentation for date of: 07/22/25 HPI History of Present Illness History of present illness: Mr. Garcia 49M with metastatic GI cancer (mets in lung and bone) on 3-4 L oxygen at home, who was transferred to [facility] for 1 month for workup of suspected small bowel cancer now on FOLFOX plus cetuximab plus encorafenib (last chemo was 3 weeks ago at [facility]) (followed by Dr. Cody and Dr. Schwartz), normocytic anemia, and bilateral malignant pleural effusions with pleur vac tubes bilaterally (per she drains one side every other day) he has had significant weight loss (BMI 18), and prior hx of alcohol use disorder. He presents with increased shortness of breath and increased oxygen requirements. Medications - doxycycline 100mg BID - Methadone 15 mg q8hr - pending remainder of med rec ROS pt endorses L lung pain, sternal pain, and shortness of breath pt denies, fevers, chills,dysuria, or blood in the stool. ED course, VS notable for tachycardia to 106 and tachypnea of 22, on Bipap Labs notable for: Hgb 8.1, PT 13, CO2 35, Vbg with ph 7.43, pco2 51, O2 61%, Alk phos (chronic) 893, T protein 4.4, Albumin 2.8. Imaging notable for: - CXR with Prominent bilateral lung opacity most consistent with severe pneumonia ARDS, Osseous structures appear mildly diffusely sclerotic, clinical correlation advised - Ct chest with Right Pleurx catheter satisfactory position moderate right pleural fluid Left thorax catheter satisfactory position moderate to large left pleural effusion, Moderate heart failure Severe bilateral pneumonia Bilateral pleural fluid as above Tx Dexamethasone 10 IVP NS Ceftriaxone 2 gm x1 Azithromycin 500x1 Review of Systems Review of Systems Narrative Review of Systems: as per hpi Exam Vital Signs Temp Pulse Resp BP Pulse Ox O2 Del Method O2 Flow Rate 98.1 F 106 H 22 H 124/79 98 BiPAP 5 07/22/25 11:36 07/22/25 11:36 07/22/25 11:36 07/22/25 11:36 07/22/25 11:36 07/22/25 11:36 07/22/25 09:51 FiO2 40 07/22/25 10:32 Narrative Exam General: Cachectic, visibly uncomfortable, increased work of breathing Neuro: A&O x3, no focal deficits HEENT: Moist mucous membranes, no nasal congestion CV: Tachycardic, regular rhythm, no murmurs Resp: Labored respirations (tripod positions) , decreased breath sounds bilaterally, Bilateral pleurevac tubes, mild wheezing GI: Abdomen firm, non-tender, non-distended Extremities: No edema, 2+ pulses, some trace edema bilaterally in the feet to the mid shins. Skin: Warm, dry, wound mid scapula on back Psych: Anxious appearing, appropriate responses Results: Labs 07/29/25 04:18 07/29/25 04:18 Labs: Short CBC 07/22/25 Range/Units 08:45 WBC 9.7 (3.8-10.6) Thou/mm3 Hgb 8.1 L (13.5-16.0) g/dL Hct 26.2 L (41.0-53.0) % Plt Count 358 D (140-440) Thou/mm3 BMP 07/22/25 08:45 Sodium 139 Potassium 4.2 Chloride 98 Carbon Dioxide 35.6 H BUN < 5 L Creatinine 0.4 L Glucose 105 Calcium 8.5 Cardiac Enzymes 07/22/25 Range/Units 08:45 Troponin I < 0.020 (0.0-0.045) ng/mL Liver Function 07/22/25 Range/Units 08:45 Total Bilirubin 0.2 L (0.3-1.2) mg/dL AST 21 (0-34) U/L ALT 11 (10-49) U/L Alkaline Phosphatase 893 H (46-116) U/L Albumin 2.8 L (3.5-5.0) gm/dL ABG Interpretation ABG results: 07/22/25 09:48 VBG pH 7.43 VBG pCO2 51 VBG pO2 32 VBG Base Excess 8 H Quality Measures Quality Measures none Medications Home Medications and Allergies Home Medications ?Medication ?Instructions ?Recorded ?Confirmed ?Type methadone 10 mg tablet 15 mg PO Q8H PRN pain 07/22/25 07/22/25 History ondansetron HCl 8 mg tablet 8 mg PO Q6HR PRN nausea and 07/22/25 07/22/25 History vomiting sennosides 8.6 mg tablet (senna) 8.6 mg PO DAILY PRN constipation 09/18/25 09/18/25 History Allergies Allergy/AdvReac Type Severity Reaction Status Date / Time Penicillins Allergy Intermediate RASH Verified 07/22/25 07:45 Visit Medications Azithromycin 250 mg/ Sterile (Water 2.5 ml/ Sodium Chloride) 252.5 mls @ 252.5 mls/hr IV QDAY [facility] Stop: 07/29/25 08:59 Ceftriaxone Sodium/Dextrose (Rocephin/D5w 1gm Iv Premix) 1 gm in 50 mls @ 100 mls/hr IV QDAY JUAN JOSE Stop: 07/30/25 08:59 Discontinued Medications Albuterol (Albuterol Rt 2.5 Mg/0.5 Ml Nebu) 5 mg INH X1 ONE Stop: 07/22/25 10:01 Last Admin: 07/22/25 09:48 Dose: 5 mg Aspirin (Aspirin 81 Mg Chew) 324 mg PO X1 ONE Stop: 07/22/25 07:53 Last Admin: 07/22/25 08:27 Dose: 324 mg Dexamethasone Sodium Phosphate (Dexamethasone Sod Phos Inj 10 Mg/Ml Vial) 10 mg IVP X1 ONE Stop: 07/22/25 09:33 Last Admin: 07/22/25 09:53 Dose: 10 mg Sodium Chloride (Ns) 1,000 mls @ 999 mls/hr IV .Q1H1M ONE Stop: 07/22/25 08:52 Last Infusion: 07/22/25 09:33 Dose: Infused Ceftriaxone Sodium 2 gm/ (Sodium Chloride) 50 mls @ 100 mls/hr IV X1 ONE Stop: 07/22/25 10:55 Last Infusion: 07/22/25 12:08 Dose: Infused Azithromycin 500 mg/ Sodium (Chloride) 250 mls @ 250 mls/hr IV X1 ONE Stop: 07/22/25 11:25 Last Infusion: 07/22/25 12:39 Dose: Infused Assessment & Plan Plan Mr. Garcia 49M with metastatic adenocarcinoma (mets in lung, liver and bone) on 3-4 L oxygen at home, who was transferred to [facility] for 1 month for workup of suspected small bowel cancer now on FOLFOX plus cetuximab plus encorafenib (last chemo was 3 weeks ago at [facility]) (followed by Dr. Cody and Dr. Schwartz), normocytic anemia, and bilateral malignant pleural effusions with pleur vac tubes bilaterally (per she drains one side every other day) he has had significant weight loss (BMI 18) who presents with increased work of breathing found to have PNA on Bipap PRN Acute hypoxic respiratory failure 2/2 Stage IV Metastatic Adenocarcinoma- poor prognosis bilateral malignant pleural effusions with pleurx tubes hospital acquired bibasilar pneumonia Metastatic pulmonary nodules Severe bilateral atelectasis follows with Dr. Cody and Lana. reports draining 1 lung every other day, states that left lung is due to be drained 07/22, on Chemo at [facility] (FOLFOX plus cetuximab plus encorafenib) CXR and CT chest with bilateral effusions and pleurx tubes in appropriate positions, bibasilar pleural effusion Tx - drain L lung every other day - drain R lung every other day - dexamethasone 10 mg IVP - Ceftriaxone 2 mg x1 (07/22) - Azithromycin 500mg x1 (07/22) - Vancomycin (pharmacy to dose) (07/22- - Cefepime 2gm q8hr (07/22- - Consult Oncology, Dr Schwartz for prognosis and goals of care discussion and possible hospice - Pain Meds: Methadone 15 q8hr scheduled, Dilaudid 2mg PO q3hr, (low threshold to give additional pain meds, monitor o2 sat and RR) - Nausea Meds: Zofran 8mg q6hr PRN - BIpap PRN Sinus Tachycardia CTM given pt on some qt prolonging agents could be 2/2 poor lung reserves vs anemia, vs pain. EKG with sinus tachycardia Normocytic anemia (hgb 8) requiring multiple blood transfusions on prior admissions 2/2 gi losses - type and screen - monitor BM for viv blood - transfuse if hgb <7 Anorexia Malnutrition 2/2 malignancy Hypoalbuminemia BMI 18 - Dietition referred, appreciate recs - regular diet - ensure max with meals Coagulopathy 2/2 malignancy - PT elevated - On SCDs for vte ppx Chronic elevated alk phos (893) mets to the liver - CTM Back wound -wound care consulted - continue doxycycline 100 mg BID Anxiety - lorazepam 0.5 mg q4hr prn Dispo: admit to tele, pending goals of care Diet: regular Bowel Reg: senna 2 tab qd prn VTE ppx: hold SCDs GI ppx: Protonix 40 IV qd Code status: FULL Plan discussed with Dr Presley, and Dr. 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 Of note, had a next tensive discussion with patient, using an spanish interpreter/translator regarding goals of care and updated them that unfortunately this is a poor prognosis and discussed goals of care however they stated they want patient to be full code they understand that he might not make it if he got intubated however stated that they want patient to be full code for which we will respect.I reviewed above note and agree with findings and plans. I have also personally examined the patient with medicine team and went over assessment and plan with medical team including analysis internship and resident physician.
--- NOTE | 2025-07-22 14:30 | PC.NURSE ---
JENNIFERO NOT DELIVERED BY PHARMACY YET.
[2025-07-22] MEDS: CEFEPIME INJ 2 GM in SODIUM CHLORIDE 0.9% (Popper) 50 ML IV ×2 (14:47→21:34)
--- NOTE | 2025-07-22 16:26 | PC.NURSE ---
PT TRANSPORTED TO FLOOR BY THIS RN, MYRNA GUADALUPE, AND RT WITHOUT INCIDENT CONNECTED TO TELE. PTS DRAINS INTACT, NO LEAKING AROUND BANDAGE.
[2025-07-22] MEDS: HYDROmorphone INJ 2 MG/ML VIAL IVP (17:00)
--- NOTE | 2025-07-22 17:28 | XR_ITS ---
Examination: AP chest single view Technique one AP portable upright chest single view Date and time: July 22, 2025, 1817 hrs., Comparison 07/22/2025 0804 hrs. Indications: Worsening respiratory failure, hypoxia Findings: Severe bilateral lung opacity consistent with severe pneumonia and ARDS Likely associated heart failure with enlargement cardiac contour prominent vascular congestion Moderate to large bilateral pleural effusions Right internal jugular Port-A-Cath tip right atrium Widespread osteoblastic metastatic disease Impression: Severe bilateral pneumonia ARDS pattern Mild to moderate associated heart failure with moderate to large bilateral pleural effusions
[2025-07-22 18:05] LABS: Base Excess 7 (-3-3); HCO3 33 mEq/L (20-26); Inspired O2, VO2 Liters 10 L/min; O2 Saturation 97 % (91-98); PCO2 53 mmHg (32.0-48.0); PO2 81 mmHg (83-108); pH, Arterial 7.40 (7.35-7.45)
[2025-07-22 18:07] LABS: Allen Test Performed/OK; Puncture Site Left Radial
--- NOTE | 2025-07-22 18:39 | PD.RESEVENT ---
Documentation for date of: 07/22/25 Event Note Event Note: Mr. Garcia is a 49 y.o male with PMHx significant for metastatic adenocarcinoma (mets in lung, liver and bone) on baseline 3-4 L oxygen at home with b/l pleurx catheters, recently transferred to [facility] for workup for suspected SB cancer on chemo, EtoH use disorder was seen at bedside with ICU resident, Dr. Sequeira after patient was seen complaining of chest pain and was having increased work of breathing around 5PM. Patient was sitting in tripod position while on 10LNC, RR 40-50 beats/min. At this time, patient received IV Dilaudid 2mg and felt patient would benefit from a drainage from his left pleurx catheter. Patient's was at bedside and was helpful during drainage. Successfully removed 100cc from left lung, and patient was seen on 8L NC, RR 16-18 beats/min, and denied any pain. CXR s/p drainage continues to show severe bilateral pneumonia ARDS pattern and mild to moderate associated heart failure with moderate to large bilateral pleural effusions. Patient currently meets criteria for moderate ARDS based on revised [place] Criteria. Will f/u with repeat ABG at 11PM to follow his PNA and ARDS course. All of patient and patient's wifes' questions were asked and answered. Patient will continue with IV Abx for his b/l PNA and continue to drain his b/l lungs QOD as per patient's worsening hypoxia. Patient's course and plan discussed with my attending, Dr. Valerio. Blanca Presley, PGY-3
[2025-07-22 19:34] LABS: Hematocrit 27.5 % (41.0-53.0)
[2025-07-22 19:38] LABS: Hemoglobin 8.6 g/dL (13.5-16.0)
[2025-07-22 20:25] LABS: Collection Type, Urine Clean Catch
[2025-07-22 20:33] LABS: Bacteria,Urine Rare; Bilirubin,Urine Negative (Negative); Blood,Urine Negative (Negative); Clarity,Urine Clear (Clear/Hazy); Color,Urine Lt-Yellow (Lt Yel-Yel); Culture Indicated,Urine Not Indicated; Glucose, Urine Negative (Negative); Ketones,Urine 1+ (Negative); Leukocyte Esterase,Urine Negative (Negative); Nitrite,Urine Negative (Negative); PH,Urine 6.5 (5.0-7.0); Protein,Urine Negative (Neg - Trace); RBC,Urine 2 /hpf (0-3); Specific Gravity,Urine 1.012 (1.001-1.035); Squamous Epithelial Cell,Urine < 1 /hpf (0-5); Urobilinogen,Urine Negative mg/dL (0.0-1.0); WBC,Urine 2 /hpf (0-5)
[2025-07-22] MEDS: METHADONE HCL 10 MG TABLET 15 MG PO (21:34)
[2025-07-22 22:44] LABS: Base Excess 8 (-3-3); HCO3 34 mEq/L (20-26); Inspired Oxygen, FIO2 21 %; O2 Saturation 96 % (91-98); PCO2 51 mmHg (32.0-48.0); PO2 74 mmHg (83-108); pH, Arterial 7.43 (7.35-7.45)
[2025-07-22 22:45] LABS: Allen Test Performed/OK; Puncture Site Left Radial
[2025-07-23] VITALS (10 sets, daily range): BP systolic 115–138; BP diastolic 75–90; PULSE 79–111; RESP 14–34; TEMP 35.9–36.6; O2SAT 96–100; BMI 18.3
[2025-07-23] MEDS: HYDROmorphone INJ 2 MG/ML VIAL IVP ×2 (04:33→09:17)
[2025-07-23] MEDS: METHADONE HCL 10 MG TABLET 15 MG PO ×3 (05:36→21:19)
[2025-07-23] MEDS: CEFEPIME INJ 2 GM in SODIUM CHLORIDE 0.9% (Popper) 50 ML IV ×3 (05:36→21:19)
--- NOTE | 2025-07-23 05:41 | PC.NURSE ---
offered pt senna for constipation but pt refused to take at this time.
[2025-07-23 06:53] LABS: Basophils # (Auto) 0.0 Thou/mm3 (0.0-0.2); Basophils % (Auto) 0 % (0-2.5); Eosinophils # (Auto) 0.0 Thou/mm3 (0.0-0.5); Eosinophils % (Auto) 0 % (0-10); Hematocrit 27.6 % (41.0-53.0); Immature Granulocytes Auto 0.07 Thou/mm3 (0.00-0.00); Lymphocytes # (Auto) 1.0 Thou/mm3 (1.0-4.8); Lymphocytes % (Auto) 11 % (10-50); Mean Corpuscular HGB Conc 30.8 g/dl (31.0-37.0); Mean Corpuscular Hemoglobin 29.8 pg (25.0-35.0); Mean Corpuscular Volume 97 fL (80-100); Monocytes # (Auto) 0.9 Thou/mm3 (0.0-0.8); Monocytes % (Auto) 10 % (0-12); Neutrophils # (Auto) 7.0 Thou/mm3 (1.8-7.7); Neutrophils % (Auto) 78 % (37-80); Nucleated Red Blood Cell # 0.00 Thou/mm3 (0.00-0.00); Nucleated Red Blood Cell % 0 /100 WBC (0); Platelet Count 389 Thou/mm3 (140-440); RDW Standard Deviation 54.1 fL (35.1-43.9); Red Blood Count 2.85 Miln/mm3 (4.50-5.90); White Blood Count 9.0 Thou/mm3 (3.8-10.6)
[2025-07-23 06:58] LABS: Hemoglobin 8.5 g/dL (13.5-16.0)
[2025-07-23 07:18] LABS: Alanine Aminotransferase 13 U/L (10-49); Albumin, Serum 2.9 gm/dL (3.5-5.0); Albumin/Globulin Ratio 1.7 (1.2-2.2); Alkaline Phosphatase 873 U/L (46-116); Anion Gap 4 (7-16); Aspartate Amino Transferase 23 U/L (0-34); BUN/Creatinine Ratio 20 Ratio (12-20); Bilirubin,Total 0.2 mg/dL (0.3-1.2); Blood Urea Nitrogen 8 mg/dL (9-23); Calcium 8.6 mg/dL (8.3-10.6); Calcium (Corrected) 9.5 mg/dL (8.5-10.1); Carbon Dioxide 35.7 mMol/L (20.0-31.0); Chloride 99 mMol/L (98-107); Creatinine (Component) 0.4 mg/dL (0.6-1.3); Estimated Creatinine Clearance 171.5 mL/min (>60); Globulin 1.7 gm/dL (2.3-3.5); Glucose 122 mg/dL (74-106); Osmolality,Calculated 276 (275-295); Potassium 4.5 mMol/L (3.4-5.1); Sodium 139 mMol/L (136-145); Total Protein 4.6 gm/dL (5.7-8.2); eGFR > 60 See Note
--- NOTE | 2025-07-23 07:36 | ESPR_ITS ---
<Statement entered by Blanca Presley MD - 07/23/25 17:27> I discussed with and supervised the senior insight manager international physician who took care of this patient. I personally saw and examined the patient and discussed the assessment and plan with the entire medicine team, including my attending Dr. Valerio, I agree with most of the assessment and plan as documented below Blanca Presley M.D. PGY-3 Documentation for date of: 07/23/25 Subjective Subjective Interval history: Mr. Garcia 49M with metastatic adenocarcinoma (mets in lung, liver and bone) on 3-4 L oxygen at home, who was transferred to [facility] for 1 month for workup of suspected small bowel cancer now on FOLFOX plus cetuximab plus encorafenib (last chemo was 3 weeks ago at [facility]) (followed by Dr. Cody and Dr. Schwartz), normocytic anemia, and bilateral malignant pleural effusions with pleur vac tubes bilaterally (per she drains one side every other day) he has had significant weight loss (BMI 18) who presented with increased work of breathing found to have PNA on Bipap PRN 07/22/2025: Left lung drained 100ccs. 07/23/2025: patient seen and examined at bedside, family not yet present. he is sattin 96% on 6L NC, with accessory muscle use, pt is extremely anxious despite 1x 0.5 lorazapam given. Given lasix 40 IV, pt has bipap prn, however does not like the sensation of the mask. Dr. Schwartz saw patient. goal is to keep lungs as dry as possibel and continue to monitor ARDS. pO2 :FiO2 105, repeat ABG done. Daily cxr. Dietition reccomends multivitamins in addition to meal supplements. trial seroquel 25 for anxiety Exam Vital Signs Temp Pulse Resp BP Pulse Ox O2 Del Method O2 Flow Rate 97.5 F 84 14 134/89 H 97 Oxy Mask 10 07/23/25 04:00 07/23/25 04:00 07/23/25 04:00 07/23/25 04:00 07/23/25 04:00 07/23/25 04:00 07/23/25 04:00 FiO2 40 07/23/25 00:00 Narrative Exam General: Cachectic, visibly uncomfortable, increased work of breathing Neuro: A&O x3, no focal deficits HEENT: Moist mucous membranes, no nasal congestion CV: Tachycardic, regular rhythm, no murmurs Resp: Labored respirations accessory muscle use, decreased breath sounds bilaterally, Bilateral pleurevac tubes, mild wheezing GI: Abdomen soft, non-tender, non-distended Extremities: No edema, 2+ pulses, some trace edema bilaterally in the feet to the mid shins. Skin: Warm, dry, wound mid scapula on back Psych: Anxious appearing, appropriate responses Objective Labs 07/29/25 04:18 07/29/25 04:18 Labs: Laboratory Results - last 24 hr 07/22/25 07/22/25 07/22/25 08:45 09:48 10:44 WBC 9.7 RBC 2.67 L Hgb 8.1 L Hct 26.2 L MCV 98 MCH 30.3 MCHC 30.9 L RDW Std Deviation 54.4 H Plt Count 358 D Neut % (Auto) 80 Lymph % (Auto) 11 Burt % (Auto) 8 Eos % (Auto) 1 Baso % (Auto) 1 Neut # (Auto) 7.7 Lymph # (Auto) 1.0 Burt # (Auto) 0.7 Eos # (Auto) 0.1 Baso # (Auto) 0.1 Immature Gran # (Auto) 0.06 H Absolute Nucleated RBC 0.00 Immature Gran % 1 H Nucleated RBC % 0 PT 13.0 H INR 1.2 Puncture Site ABG pH ABG pCO2 ABG pO2 ABG HCO3 ABG O2 Saturation ABG Base Excess VBG pH 7.43 VBG pCO2 51 VBG pO2 32 VBG O2 Sat (Isreal) 61 L VBG Base Excess 8 H Oxygen Liter Flow FiO2 Sodium 139 Potassium 4.2 Chloride 98 Carbon Dioxide 35.6 H Anion Gap 5 L BUN < 5 L Creatinine 0.4 L Estim Creat Clear Calc 170.1 eGFR > 60 BUN/Creatinine Ratio 13 Glucose 105 Calculated Osmolality 274 L Lactic Acid 1.1 Calcium 8.5 Corrected Calcium 9.5 Total Bilirubin 0.2 L AST 21 ALT 11 Alkaline Phosphatase 893 H Troponin I < 0.020 Total Protein 4.4 L Albumin 2.8 L Globulin 1.6 L Albumin/Globulin Ratio 1.8 Ur Collection Type Urine Color Urine Clarity Urine pH Ur Specific [place] Urine Protein Urine Glucose (UA) Urine Ketones Urine Blood Urine Nitrite Urine Bilirubin Urine Urobilinogen (Auto) Ur Leukocyte Esterase Urine RBC Urine WBC Ur Squamous Epith Cells Urine Bacteria Ur Culture Indicated? Blood Type Antibody Screen Crossmatch Blood Bank Wristband ID 07/22/25 07/22/25 07/22/25 14:47 17:57 19:03 WBC RBC Hgb 8.6 L Hct 27.5 L MCV MCH MCHC RDW Std Deviation Plt Count Neut % (Auto) Lymph % (Auto) Burt % (Auto) Eos % (Auto) Baso % (Auto) Neut # (Auto) Lymph # (Auto) Burt # (Auto) Eos # (Auto) Baso # (Auto) Immature Gran # (Auto) Absolute Nucleated RBC Immature Gran % Nucleated RBC % PT INR Puncture Site Left Radial ABG pH 7.40 ABG pCO2 53 H ABG pO2 81 L ABG HCO3 33 H ABG O2 Saturation 97 ABG Base Excess 7 H VBG pH VBG pCO2 VBG pO2 VBG O2 Sat (Isreal) VBG Base Excess Oxygen Liter Flow 10 FiO2 Sodium Potassium Chloride Carbon Dioxide Anion Gap BUN Creatinine Estim Creat Clear Calc eGFR BUN/Creatinine Ratio Glucose Calculated Osmolality Lactic Acid Calcium Corrected Calcium Total Bilirubin AST ALT Alkaline Phosphatase Troponin I Total Protein Albumin Globulin Albumin/Globulin Ratio Ur Collection Type Urine Color Urine Clarity Urine pH Ur Specific [place] Urine Protein Urine Glucose (UA) Urine Ketones Urine Blood Urine Nitrite Urine Bilirubin Urine Urobilinogen (Auto) Ur Leukocyte Esterase Urine RBC Urine WBC Ur Squamous Epith Cells Urine Bacteria Ur Culture Indicated? Blood Type A Positive Antibody Screen NEGATIVE Crossmatch See Detail Blood Bank Wristband ID Yes 07/22/25 07/22/25 07/23/25 19:45 22:34 06:20 WBC 9.0 RBC 2.85 L Hgb 8.5 L Hct 27.6 L MCV 97 MCH 29.8 MCHC 30.8 L RDW Std Deviation 54.1 H Plt Count 389 D Neut % (Auto) 78 Lymph % (Auto) 11 Burt % (Auto) 10 Eos % (Auto) 0 Baso % (Auto) 0 Neut # (Auto) 7.0 Lymph # (Auto) 1.0 Burt # (Auto) 0.9 H Eos # (Auto) 0.0 Baso # (Auto) 0.0 Immature Gran # (Auto) 0.07 H Absolute Nucleated RBC 0.00 Immature Gran % 1 H Nucleated RBC % 0 PT INR Puncture Site Left Radial ABG pH 7.43 ABG pCO2 51 H ABG pO2 74 L ABG HCO3 34 H ABG O2 Saturation 96 ABG Base Excess 8 H VBG pH VBG pCO2 VBG pO2 VBG O2 Sat (Isreal) VBG Base Excess Oxygen Liter Flow FiO2 21 Sodium 139 Potassium 4.5 Chloride 99 Carbon Dioxide 35.7 H Anion Gap 4 L BUN 8 L Creatinine 0.4 L Estim Creat Clear Calc 171.5 eGFR > 60 BUN/Creatinine Ratio 20 Glucose 122 H Calculated Osmolality 276 Lactic Acid Calcium 8.6 Corrected Calcium 9.5 Total Bilirubin 0.2 L AST 23 ALT 13 Alkaline Phosphatase 873 H D Troponin I Total Protein 4.6 L Albumin 2.9 L Globulin 1.7 L Albumin/Globulin Ratio 1.7 Ur Collection Type Clean Catch Urine Color Lt-Yellow Urine Clarity Clear Urine pH 6.5 Ur Specific [place] 1.012 Urine Protein Negative Urine Glucose (UA) Negative Urine Ketones 1+ A Urine Blood Negative Urine Nitrite Negative Urine Bilirubin Negative Urine Urobilinogen (Auto) Negative Ur Leukocyte Esterase Negative Urine RBC 2 Urine WBC 2 Ur Squamous Epith Cells < 1 Urine Bacteria Rare Ur Culture Indicated? Not Indicated Blood Type Antibody Screen Crossmatch Blood Bank Wristband ID ABG Interpretation ABG results: 07/22/25 07/22/25 07/22/25 09:48 17:57 22:34 ABG pH 7.40 7.43 ABG pCO2 53 H 51 H ABG pO2 81 L 74 L ABG HCO3 33 H 34 H ABG O2 Saturation 97 96 ABG Base Excess 7 H 8 H VBG pH 7.43 VBG pCO2 51 VBG pO2 32 VBG Base Excess 8 H Quality Measures Quality Measures VTE prophylaxis Assessment & Plan Assessment Current Active Medications: Generic Name Dose Route Start Last Admin Trade Name Freq PRN Reason Stop Dose Admin Acetaminophen 650 mg 07/22/25 13:44 Acetaminophen 325 Mg Tablet PO 08/21/25 13:43 Q6H PRN Fever >100.4 and pain 1-4 Doxycycline Hyclate 100 mg 07/23/25 09:00 Doxycycline 100 Mg Tablet PO 07/30/25 08:59 BID JUAN JOSE Hydromorphone HCl 2 mg 07/22/25 16:29 07/23/25 04:33 Hydromorphone Inj 2 Mg/Ml Vial IVP 07/27/25 16:28 2 mg Q3HR PRN Administration Pain 5-10 Cefepime HCl 2 gm/ Sodium 50 mls @ 100 mls/hr 07/22/25 13:43 07/23/25 06:20 Chloride IV 07/29/25 13:42 Infused Q8HR JUAN JOSE Infusion Vancomycin/Sodium Chloride 200 mls @ 120 mls/hr 07/23/25 07:30 Vancomycin/Ns 1 Gm Ivpb IV 07/23/25 09:09 X1 ONE Methadone HCl 15 mg 07/22/25 14:00 07/23/25 05:36 Methadone Hcl 10 Mg Tablet PO 07/27/25 13:59 15 mg Q8HR JUAN JOSE Administration Ondansetron HCl 8 mg 07/22/25 13:44 Ondansetron Inj 2 Mg/Ml Inj 2 Ml IVP 08/21/25 13:43 Q6H PRN NAUSEA OR VOMITING Protocol Pharmacy Consult 1 each 07/23/25 06:17 Vancomycin Pharmacy To Dose 1 Each Each IV 08/21/25 13:44 QDAY PRN PROTOCOL Sennosides 2 tab 07/22/25 13:59 Senna Tablet PO 08/21/25 13:58 QDAY PRN CONSTIPATION Protocol Plan Mr. Garcia 49M with metastatic adenocarcinoma (mets in lung, liver and bone) on 3-4 L oxygen at home, who was transferred to [facility] for 1 month for workup of suspected small bowel cancer now on FOLFOX plus cetuximab plus encorafenib (last chemo was 3 weeks ago at [facility]) (followed by Dr. Cody and Dr. Schwartz), normocytic anemia, and bilateral malignant pleural effusions with pleur vac tubes bilaterally (per she drains one side every other day) he has had significant weight loss (BMI 18) who presents with increased work of breathing found to have PNA on Bipap PRN, and lasix qd. pending goals of care discussion. managing ARDS, pna, and pain. Acute hypoxic respiratory failure 2/2 Moderate ARDS Stage IV Metastatic Adenocarcinoma- poor prognosis bilateral malignant pleural effusions with pleurx tubes hospital acquired bibasilar pneumonia Metastatic pulmonary nodules Severe bilateral atelectasis follows with Dr. Cody and Lana. reports draining 1 lung every other day, states that left lung is due to be drained 07/22, on Chemo at [facility] (FOLFOX plus cetuximab plus encorafenib) CXR and CT chest with bilateral effusions and pleurx tubes in appropriate positions, bibasilar pleural effusion Sterling Score moderate ards 105 po2: fio2 ratio Tx - drain lungs when symptomatic - s/p L lung drained overnight with 100cc output 07/22 - dexamethasone 10 mg IVP - Ceftriaxone 2 mg x1 (07/22) - Azithromycin 500mg x1 (07/22) - Vancomycin (pharmacy to dose) (07/22- - Cefepime 2gm q8hr (07/22- - Lasix 40 mg IV qd - Consult Oncology, Dr Schwartz for prognosis and goals of care discussion and possible hospice - Pain Meds: Methadone 15 q8hr scheduled, Dilaudid 2mg IV q3hr, (low threshold to give additional pain meds, monitor o2 sat and RR) - Nausea Meds: Zofran 8mg q6hr PRN - BIpap PRN - Daily CXR to monitor ards, - avoid albuterol given tachycardia. Sinus Tachycardia CTM given pt on some qt prolonging agents could be 2/2 poor lung reserves vs anemia, vs pain. EKG with sinus tachycardia Normocytic anemia (hgb 8) requiring multiple blood transfusions on prior admissions 2/2 gi losses - type and screen - monitor BM for viv blood - transfuse if hgb <7 Anorexia Malnutrition 2/2 malignancy Hypoalbuminemia BMI 18 - Dietition referred, appreciate recs - regular diet, mechanical dysphagia 2. - ensure high plus max with meals - po liquid multivitamin qd Coagulopathy 2/2 malignancy - PT elevated - On SCDs for vte ppx Chronic elevated alk phos (893) mets to the liver - CTM Back wound -wound care consulted - continue doxycycline 100 mg BID Anxiety - given lorazapam 0.5 x1 today with minimal effect. - trial seroquel 25 qd Dispo: admit to tele, pending goals of care, on iv abx, pending bcx ngtd at 24 hrs. Diet: regular Bowel Reg: senna 2 tab qd prn VTE ppx: hold SCDs GI ppx: Protonix 40 IV qd Code status: FULL Plan discussed with Dr Presley, and Dr. 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 Of note, had a next tensive discussion with patient, using an refining equipment operator regarding goals of care and updated them that unfortunately this is a poor prognosis and discussed goals of care however they stated they want patient to be full code they understand that he might not make it if he got intubated however stated that they want patient to be full code for which we will respect.I reviewed above note and agree with findings and plans. I have also personally examined the patient with medicine team and went over assessment and plan with medical team including senior insight manager international and resident physician.
--- NOTE | 2025-07-23 07:49 | PD.ONCCONS ---
HPI Data of Consult Consult date: 07/23/25 Requesting Physician: Pedro Valerio MD Primary Care Provider: Physician No Primary/Family Consult Narrative Reason for consult: Stage IV malignancy admitted with respiratory distress History of present illness: Patient is an unfortunate 49-year-old gentleman with metastatic adenocarcinoma probable of GI origin with involvement of the lung and bone. Extensive workup done at [facility] as well as [facility] based on fluid cytology, as no solid tissue was available for definitive diagnosis. Received 2 cycles of chemo per [place] Trial at [facility] as an inpatient and recommended to continue this as outpatient closer to home. Patient was admitted yesterday with shortness of breath and chest CT 07/22/2025 revealing severe bilateral pneumonia along with bilateral pleural fluid and moderate heart failure. Chest x-ray revealed severe bilateral lung opacity consistent with severe pneumonia and ARDS with likely associated heart failure with enlargement cardiac contour prominent vascular congestion. Moderate to large bilateral pleural effusion. Patient who has left PleurX catheter in place and 100 cc removed from the left lung with only slight improvement Rester symptoms as he is currently on high flow O2 at 10 L via oxygen mask. Patient receiving antibiotics and pain medications. Referred for oncological consultation. cc:: cc: Pedro Valerio MD Past Medical History Past Medical History Comments PMH COMMENT: Stage IV mets CA involving lung bone. Meds Home Medications and Allergies Home Medications ?Medication ?Instructions ?Recorded ?Confirmed ?Type doxycycline hyclate 100 mg capsule 100 mg PO Q12H 07/22/25 07/22/25 History lansoprazole 30 mg capsule,delayed 30 mg PO .QD 07/22/25 07/23/25 History release Held on 07/22/25. Instructions: error- not taking t this time methadone 10 mg tablet 15 mg PO Q8H PRN pain 07/22/25 07/22/25 History ondansetron HCl 8 mg tablet 8 mg PO Q6HR PRN nausea and 07/22/25 07/22/25 History vomiting sennosides 8.6 mg tablet (senna) 8.6 mg PO DAILY PRN constipation 07/22/25 07/22/25 History Allergies Allergy/AdvReac Type Severity Reaction Status Date / Time Penicillins Allergy Intermediate RASH Verified 07/22/25 07:45 Exam Vital Signs Temp Pulse Resp BP Pulse Ox O2 Del Method O2 Flow Rate 97.5 F 84 14 134/89 H 97 Oxy Mask 10 07/23/25 04:00 07/23/25 04:00 07/23/25 04:00 07/23/25 04:00 07/23/25 04:00 07/23/25 04:00 07/23/25 04:00 FiO2 40 07/23/25 00:00 Narrative Exam Receiving high flow O2 via mask in moderate respiratory distress Results Labs 07/23/25 06:20 07/23/25 06:20 Labs: Short CBC 07/22/25 07/22/25 07/23/25 Range/Units 08:45 19:03 06:20 WBC 9.7 9.0 (3.8-10.6) Thou/mm3 Hgb 8.1 L 8.6 L 8.5 L (13.5-16.0) g/dL Hct 26.2 L 27.5 L 27.6 L (41.0-53.0) % Plt Count 358 D 389 D (140-440) Thou/mm3 BMP 07/22/25 07/23/25 08:45 06:20 Sodium 139 139 Potassium 4.2 4.5 Chloride 98 99 Carbon Dioxide 35.6 H 35.7 H BUN < 5 L 8 L Creatinine 0.4 L 0.4 L Glucose 105 122 H Calcium 8.5 8.6 Cardiac Enzymes 07/22/25 Range/Units 08:45 Troponin I < 0.020 (0.0-0.045) ng/mL Liver Function 07/22/25 07/23/25 Range/Units 08:45 06:20 Total Bilirubin 0.2 L 0.2 L (0.3-1.2) mg/dL AST 21 23 (0-34) U/L ALT 11 13 (10-49) U/L Alkaline Phosphatase 893 H 873 H D (46-116) U/L Albumin 2.8 L 2.9 L (3.5-5.0) gm/dL Urine 07/22/25 Range/Units 19:45 Urine Color Lt-Yellow (Lt Yel-Yel) Urine Clarity Clear (Clear/Hazy) Urine pH 6.5 (5.0-7.0) Ur Specific [place] 1.012 (1.001-1.035) Urine Protein Negative (Neg - Trace) Urine Glucose (UA) Negative (Negative) ABG Interpretation ABG results: 07/22/25 07/22/25 07/22/25 09:48 17:57 22:34 ABG pH 7.40 7.43 ABG pCO2 53 H 51 H ABG pO2 81 L 74 L ABG HCO3 33 H 34 H ABG O2 Saturation 97 96 ABG Base Excess 7 H 8 H VBG pH 7.43 VBG pCO2 51 VBG pO2 32 VBG Base Excess 8 H Assessment and Plan Additional Assessment & Plan Additional Plan: 1. Metastatic adenocarcinoma with significant lung and bone involvement stage IV. 2. Recently received 2 cycles of chemo as inpatient at [facility]. Awaiting continuation with outpatient chemo care at [facility]. 3. Admitted with significant pneumonia and ARDS symptoms. Receiving antibiotics oxygen pain meds and other supportive care. 4. Obviously guarded prognosis but patient was briefly in hospice care but family wants to get regular cancer care if possible including continuation of chemo that was initiated at [facility]. 5. Will see patient following discharge regarding the goals of care that would be in patient's interest. Thank you for allowing me to evaluate this patient again.
[2025-07-23] MEDS: DOXYCYCLINE 100 MG TABLET PO ×2 (09:17→21:19)
[2025-07-23] MEDS: VANCOMYCIN/NS 1 GM IVPB 200 ML IV ×2 (09:18→22:11)
--- NOTE | 2025-07-23 10:00 | XR_ITS ---
Examination: AP chest single view Technique one AP portable upright chest single view Date and time: July 23, 2025 1019 hours, comparison 07/22/2025 INDICATIONS: Shortness of breath today. FINDINGS: Again noted severe bilateral lung opacity Bilateral Pleurx catheters Right internal jugular Port-A-Cath tip right atrium Cardiac contour is obscured by the parenchymal disease IMPRESSION: Severe bilateral pneumonia ARDS pattern again noted
[2025-07-23] MEDS: FUROSEMIDE INJ 10 MG/ML 4ML VIAL 40 MG IVP (11:00)
[2025-07-23 13:00] LABS: Base Excess 9 (-3-3); HCO3 35 mEq/L (20-26); Inspired Oxygen, FIO2 40 %; O2 Saturation 96 % (91-98); PCO2 54 mmHg (32.0-48.0); PO2 73 mmHg (83-108); pH, Arterial 7.42 (7.35-7.45)
[2025-07-23 13:01] LABS: Puncture Site Left Radial
[2025-07-23 13:02] LABS: Allen Test Performed/OK
--- NOTE | 2025-07-23 13:10 | PC.SS ---
Garcia Garcia is 49-year-old male admitted to [facility] for Respiratory Distress. SS conducted over the phone contact with pt. Rosana rocha [phone]. Role and reason explained. Pt resides at home with his Jailene Méndez [phone]. Rosana reports she is the main contact for the pt as his is only [place]ian Speaking. Pt aligned with HH but dtr unsure of agency. Pt possess O2 at home from [facility]. Pt requires minimal assist at home. [facility] options discussed and they are not interested in Hospice Services but wish to keep HH. Pharmacy of choice is [facility] on [address]. Pt will need transportation assistance at the time of DC and possesses [employer] transport. SS will remain available for any additional needs or concerns. DC plan: Home with HH DM: Rosana Rocha PCP: Dr. Baker (last visit was last week)
--- NOTE | 2025-07-23 13:42 | PC.SS ---
Rounding: On Bipap,, DC plan home when stable
[2025-07-24] VITALS (16 sets, daily range): BP systolic 100–134; BP diastolic 62–95; PULSE 107–148; RESP 12–28; TEMP 36.2–37.1; O2SAT 90–98
[2025-07-24] MEDS: HYDROmorphone INJ 2 MG/ML VIAL IVP ×5 (02:29→22:46)
[2025-07-24 05:51] LABS: Basophils # (Auto) 0.1 Thou/mm3 (0.0-0.2); Basophils % (Auto) 0 % (0-2.5); Eosinophils # (Auto) 0.2 Thou/mm3 (0.0-0.5); Eosinophils % (Auto) 2 % (0-10); Hematocrit 27.4 % (41.0-53.0); Immature Granulocytes Auto 0.09 Thou/mm3 (0.00-0.00); Lymphocytes # (Auto) 2.3 Thou/mm3 (1.0-4.8); Lymphocytes % (Auto) 20 % (10-50); Mean Corpuscular HGB Conc 31.0 g/dl (31.0-37.0); Mean Corpuscular Hemoglobin 30.5 pg (25.0-35.0); Mean Corpuscular Volume 98 fL (80-100); Monocytes # (Auto) 1.4 Thou/mm3 (0.0-0.8); Monocytes % (Auto) 12 % (0-12); Neutrophils # (Auto) 7.2 Thou/mm3 (1.8-7.7); Neutrophils % (Auto) 64 % (37-80); Nucleated Red Blood Cell # 0.00 Thou/mm3 (0.00-0.00); Nucleated Red Blood Cell % 0 /100 WBC (0); Platelet Count 380 Thou/mm3 (140-440); RDW Standard Deviation 54.5 fL (35.1-43.9); Red Blood Count 2.79 Miln/mm3 (4.50-5.90); White Blood Count 11.3 Thou/mm3 (3.8-10.6)
[2025-07-24 05:52] LABS: Hemoglobin 8.5 g/dL (13.5-16.0)
[2025-07-24] MEDS: METHADONE HCL 10 MG TABLET 15 MG PO (05:57)
[2025-07-24] MEDS: CEFEPIME INJ 2 GM in SODIUM CHLORIDE 0.9% (Popper) 50 ML IV ×3 (05:58→21:31)
[2025-07-24 06:19] LABS: Alanine Aminotransferase 19 U/L (10-49); Albumin, Serum 3.0 gm/dL (3.5-5.0); Albumin/Globulin Ratio 1.9 (1.2-2.2); Alkaline Phosphatase 891 U/L (46-116); Anion Gap 5 (7-16); Aspartate Amino Transferase 29 U/L (0-34); BUN/Creatinine Ratio 24 Ratio (12-20); Bilirubin,Total 0.2 mg/dL (0.3-1.2); Blood Urea Nitrogen 12 mg/dL (9-23); Calcium 8.8 mg/dL (8.3-10.6); Calcium (Corrected) 9.6 mg/dL (8.5-10.1); Carbon Dioxide 36.5 mMol/L (20.0-31.0); Chloride 98 mMol/L (98-107); Creatinine (Component) 0.5 mg/dL (0.6-1.3); Estimated Creatinine Clearance 137.2 mL/min (>60); Globulin 1.6 gm/dL (2.3-3.5); Glucose 94 mg/dL (74-106); Osmolality,Calculated 277 (275-295); Potassium 4.0 mMol/L (3.4-5.1); Sodium 139 mMol/L (136-145); Total Protein 4.6 gm/dL (5.7-8.2); eGFR > 60 See Note
--- NOTE | 2025-07-24 07:37 | ESPR_ITS ---
<Statement entered by Blanca Presley MD - 07/24/25 14:49> Patient seen and examined at bedside. Patient is requiring more oxygen requirements than yesterday. Patient was unable to tolerate BiPAP and is more anxious. Will increase patient's Seroquel to 50 mg daily and start on high flow at 20 L 50% FiO2. Will also follow-up with cocci serology. Patient is on home methadone 15 mg Q8, and will increase to 25 or more long-acting pain control, and continue with Dilaudid for breakthrough pain. Patient was also expressing pain in his chest and back and wanted lidocaine patches. Continue to monitor patient's oxygen requirements and drain his lungs as needed. Will continue IV antibiotics and consider steroids for his moderate ARDS. I discussed with and supervised the internal affairs commander physician who took care of this patient. I personally saw and examined the patient and discussed the assessment and plan with the entire medicine team, including my attending Dr. Valerio, I agree with most of the assessment and plan as documented below Blanca Presley M.D. PGY-3 Disclaimer: Despite multiple revisions, due to the dictation software being used, the document bellow may not be free of grammatical errors including phonetic/typographic errors. However, this does not deter from our commitment to providing health care in the patient's best interest in mind. Documentation for date of: 07/24/25 Subjective Subjective Interval history: Mr. Garcia 49M with metastatic adenocarcinoma (mets in lung, liver and bone) on 3-4 L oxygen at home, who was transferred to [facility] for 1 month for workup of suspected small bowel cancer now on FOLFOX plus cetuximab plus encorafenib (last chemo was 3 weeks ago at [facility]) (followed by Dr. Cody and Dr. Schwartz), normocytic anemia, and bilateral malignant pleural effusions with pleur vac tubes bilaterally (per she drains one side every other day) he has had significant weight loss (BMI 18) who presented with increased work of breathing found to have PNA on Bipap PRN 07/22/2025: Left lung drained 100ccs. 07/23/2025: patient seen and examined at bedside, family not yet present. he is sattin 96% on 6L NC, with accessory muscle use, pt is extremely anxious despite 1x 0.5 lorazapam given. Given lasix 40 IV, pt has bipap prn, however does not like the sensation of the mask. Dr. Schwartz saw patient. goal is to keep lungs as dry as possibel and continue to monitor ARDS. pO2 :FiO2 105, repeat ABG done. Daily cxr. Dietition reccomends multivitamins in addition to meal supplements. trial seroquel 25 for anxiety 07/24/2025: Patient seen and examined at, patient present on high flow nasal cannula at 50% FiO2. Pt tolerated seroquel well yesterday, will increase dose today to manage his anxiety. pending cocci serologies. given pt is on low dose methadone, and pain is not adequately controlled, favor increasing methadone for more long acting pain control. and using dilaudid for breakthrough pain. He is not oversedated and his respiratory rate is often elevated rather than depressed. Spoke to daughter Rosana today about pt's care while in the hospital and plan for goals of care discussion with family. continues on Lasix 40 qd, blood pressure is tolerating well. pt today requested lidocaine patches for pain in his chest and back. Exam Vital Signs Temp Pulse Resp BP Pulse Ox O2 Del Method O2 Flow Rate 98.8 F 109 H 12 123/81 94 L Nasal Cannula 5 07/24/25 04:00 07/24/25 04:00 07/24/25 04:00 07/24/25 04:00 07/24/25 04:00 07/24/25 04:00 07/24/25 04:00 FiO2 40 07/23/25 11:53 Narrative Exam General: Cachectic, visibly uncomfortable, on high flow nasal cannula Neuro: A&O x3, no focal deficits HEENT: Moist mucous membranes, no nasal congestion CV: Tachycardic, regular rhythm, no murmurs Resp: Labored respirations accessory muscle use, decreased breath sounds bilaterally, Bilateral pleurevac tubes, mild wheezing, on high flow NC @ 50% fio2 GI: Abdomen soft, non-tender, non-distended Extremities: No edema, 2+ pulses, some trace edema bilaterally in the feet to the mid shins. Skin: Warm, dry, wound mid scapula on back , lidocaine patches in place on back and chest Psych: Anxious appearing, appropriate responses Objective Labs 07/29/25 04:18 07/29/25 04:18 Labs: Laboratory Results - last 24 hr 07/23/25 07/24/25 12:54 05:34 WBC 11.3 H RBC 2.79 L Hgb 8.5 L Hct 27.4 L MCV 98 MCH 30.5 MCHC 31.0 RDW Std Deviation 54.5 H Plt Count 380 Neut % (Auto) 64 Lymph % (Auto) 20 [place] % (Auto) 12 Eos % (Auto) 2 Baso % (Auto) 0 Neut # (Auto) 7.2 Lymph # (Auto) 2.3 [place] # (Auto) 1.4 H Eos # (Auto) 0.2 Baso # (Auto) 0.1 Immature Gran # (Auto) 0.09 H Absolute Nucleated RBC 0.00 Immature Gran % 1 H Nucleated RBC % 0 Puncture Site Left Radial ABG pH 7.42 ABG pCO2 54 H ABG pO2 73 L ABG HCO3 35 H ABG O2 Saturation 96 ABG Base Excess 9 H FiO2 40 Sodium 139 Potassium 4.0 D Chloride 98 Carbon Dioxide 36.5 H Anion Gap 5 L BUN 12 Creatinine 0.5 L Estim Creat Clear Calc 137.2 eGFR > 60 BUN/Creatinine Ratio 24 H Glucose 94 Calculated Osmolality 277 Calcium 8.8 Corrected Calcium 9.6 Total Bilirubin 0.2 L AST 29 ALT 19 Alkaline Phosphatase 891 H Total Protein 4.6 L Albumin 3.0 L Globulin 1.6 L Albumin/Globulin Ratio 1.9 ABG Interpretation ABG results: 07/22/25 07/22/25 07/22/25 09:48 17:57 22:34 ABG pH 7.40 7.43 ABG pCO2 53 H 51 H ABG pO2 81 L 74 L ABG HCO3 33 H 34 H ABG O2 Saturation 97 96 ABG Base Excess 7 H 8 H VBG pH 7.43 VBG pCO2 51 VBG pO2 32 VBG Base Excess 8 H 07/23/25 12:54 ABG pH 7.42 ABG pCO2 54 H ABG pO2 73 L ABG HCO3 35 H ABG O2 Saturation 96 ABG Base Excess 9 H VBG pH VBG pCO2 VBG pO2 VBG Base Excess Quality Measures Quality Measures VTE prophylaxis Assessment & Plan Assessment Current Active Medications: Generic Name Dose Route Start Last Admin Trade Name Freq PRN Reason Stop Dose Admin Acetaminophen 650 mg 07/22/25 13:44 Acetaminophen 325 Mg Tablet PO 08/21/25 13:43 Q6H PRN Fever >100.4 and pain 1-4 Docusate Sodium 100 mg 07/23/25 11:45 07/23/25 14:23 Docusate Sod 100 Mg Capsule PO 08/22/25 11:44 Not Given QDAY JUAN JOSE Protocol Doxycycline Hyclate 100 mg 07/23/25 09:00 07/23/25 21:19 Doxycycline 100 Mg Tablet PO 07/30/25 08:59 100 mg BID JUAN JOSE Administration Furosemide 40 mg 07/23/25 10:30 07/23/25 11:00 Furosemide Inj 10 Mg/Ml 4ml Vial IVP 08/22/25 10:29 40 mg QDAY JUAN JOSE Administration Hydromorphone HCl 2 mg 07/22/25 16:29 07/24/25 02:29 Hydromorphone Inj 2 Mg/Ml Vial IVP 07/27/25 16:28 2 mg Q3HR PRN Administration Pain 5-10 Cefepime HCl 2 gm/ Sodium 50 mls @ 100 mls/hr 07/22/25 13:43 07/24/25 05:58 Chloride IV 07/29/25 13:42 100 mls/hr Q8HR JUAN JOSE Administration Vancomycin/Sodium Chloride 200 mls @ 120 mls/hr 07/23/25 22:00 07/23/25 22:11 Vancomycin/Ns 1 Gm Ivpb IV 07/30/25 21:59 120 mls/hr BID@1000,2200 JUAN JOSE Administration Protocol Methadone HCl 15 mg 07/22/25 14:00 07/24/25 05:57 Methadone Hcl 10 Mg Tablet PO 07/27/25 13:59 15 mg Q8HR JUAN JOSE Administration Multivitamins/Minerals 15 ml 07/24/25 09:00 Multivitamin 15 Ml Udc PO 08/23/25 08:59 QDAY JUAN JOSE Ondansetron HCl 8 mg 07/22/25 13:44 Ondansetron Inj 2 Mg/Ml Inj 2 Ml IVP 08/21/25 13:43 Q6H PRN NAUSEA OR VOMITING Protocol Pharmacy Consult 1 each 07/23/25 06:17 Vancomycin Pharmacy To Dose 1 Each Each IV 08/21/25 13:44 QDAY PRN PROTOCOL Quetiapine Fumarate 25 mg 07/23/25 16:00 07/23/25 17:41 Quetiapine Fumarate 25 Mg Tablet PO 08/22/25 15:59 25 mg QDAY JUAN JOSE Administration Sennosides 2 tab 07/22/25 13:59 Senna Tablet PO 08/21/25 13:58 QDAY PRN CONSTIPATION Protocol Plan Mr. Garcia 49M with metastatic adenocarcinoma (mets in lung, liver and bone) on 3-4 L oxygen at home, who was transferred to [facility] for 1 month for workup of suspected small bowel cancer now on FOLFOX plus cetuximab plus encorafenib (last chemo was 3 weeks ago at [facility]) (followed by Dr. Cody and Dr. Schwartz), normocytic anemia, and bilateral malignant pleural effusions with pleur vac tubes bilaterally (per she drains one side every other day) he has had significant weight loss (BMI 18) who presents with increased work of breathing found to have PNA on Bipap PRN, and lasix qd. pending goals of care discussion. managing ARDS, pna, and pain. Acute hypoxic respiratory failure 2/2 Moderate ARDS Stage IV Metastatic Adenocarcinoma- poor prognosis bilateral malignant pleural effusions with pleurx tubes hospital acquired bibasilar pneumonia Metastatic pulmonary nodules Severe bilateral atelectasis follows with Dr. Cody and Lana. reports draining 1 lung every other day, states that left lung is due to be drained 07/22, on Chemo at [facility] (FOLFOX plus cetuximab plus encorafenib) CXR and CT chest with bilateral effusions and pleurx tubes in appropriate positions, bibasilar pleural effusion 07/24 cxr, Right lung looks slightly better compared to prior, will hold off on draining R lung, consider draining tomorow if symptomatic morning ABG, with compensated respiratory acidosis with metabolic alkalosis. poor oxygenation, favor giving highflow nc rather than bipap. Tx - drain lungs when symptomatic - s/p L lung drained overnight with 100cc output 07/22 - dexamethasone 10 mg IVP x1 - Ceftriaxone 2 mg x1 (07/22) - Azithromycin 500mg x1 (07/22) - Vancomycin (pharmacy to dose) (07/22- - Cefepime 2gm q8hr (07/22- - Lasix 40 mg IV qd - Consult Oncology, Dr Schwartz for prognosis and goals of care discussion and possible hospice - Pain Meds: Methadone increased from 15 to 25mg q8hr scheduled, Dilaudid 2mg IV q3hr, (low threshold to give additional pain meds, monitor o2 sat and RR), lidocaine 5% patches PRN for back and chest. - Nausea Meds: Zofran 8mg q6hr PRN - highflow NC PRN - Daily CXR to monitor ards, - avoid albuterol given tachycardia. Anxiety - given lorazapam 0.5 x1 with minimal effect. - increased seroquel from 25 qd to 50 qd Sinus Tachycardia CTM given pt on some qt prolonging agents could be 2/2 poor lung reserves vs anemia, vs pain. EKG with sinus tachycardia Normocytic anemia (hgb 8) requiring multiple blood transfusions on prior admissions 2/2 gi losses - type and screen - monitor BM for viv blood - transfuse if hgb <7 Anorexia Malnutrition 2/2 malignancy Hypoalbuminemia BMI 18 - Dietition referred, appreciate recs - regular diet, mechanical dysphagia 2. - ensure high plus max with meals - po liquid multivitamin qd Coagulopathy 2/2 malignancy - PT elevated - On SCDs for vte ppx Chronic elevated alk phos (893) mets to the liver - CTM Back wound -wound care consulted - continue doxycycline 100 mg BID Dispo: admit to tele, pending goals of care, on iv abx, pending bcx ngtd at 48 hrs. Diet: regular Bowel Reg: senna 2 tab qd prn VTE ppx: hold SCDs GI ppx: Protonix 40 IV qd Code status: FULL Plan discussed with Dr Presley, and Dr. 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 Of note, had a next tensive discussion with patient, using an medical social consultant regarding goals of care and updated them that unfortunately this is a poor prognosis and discussed goals of care however they stated they want patient to be full code they understand that he might not make it if he got intubated however stated that they want patient to be full code for which we will respect.I reviewed above note and agree with findings and plans. I have also personally examined the patient with medicine team and went over assessment and plan with medical team including internal affairs commander and resident physician.
[2025-07-24 07:57] LABS: Base Excess 9 (-3-3); HCO3 35 mEq/L (20-26); Inspired O2, VO2 Liters 5 L/min; Inspired Oxygen, FIO2 21 %; O2 Saturation 90 % (91-98); PCO2 57 mmHg (32.0-48.0); pH, Arterial 7.40 (7.35-7.45)
[2025-07-24 08:02] LABS: Allen Test Performed/OK; Puncture Site Right Radial
[2025-07-24 08:05] LABS: PO2 58 mmHg (83-108)
[2025-07-24] MEDS: FUROSEMIDE INJ 10 MG/ML 4ML VIAL 40 MG IVP (08:23)
[2025-07-24] MEDS: DOXYCYCLINE 100 MG TABLET PO ×2 (08:24→21:32)
[2025-07-24] MEDS: MULTIVITAMIN 15 ML UDC PO (08:24)
[2025-07-24] MEDS: DOCUSATE SOD 100 MG CAPSULE PO (08:24)
[2025-07-24] MEDS: VANCOMYCIN/NS 1 GM IVPB 200 ML IV ×2 (09:53→22:45)
--- NOTE | 2025-07-24 11:57 | XR_ITS ---
Examination: AP chest single view Technique one AP upright portable chest single view Date and time: July 24, 2025, 12:11 PM, comparison 07/23/2025 Indications: Difficulty breathing today. Findings: Again noted extensive bilateral lung opacity with significant layering pleural fluid Enlarged cardiac contour with prominent vascular congestion Right internal jugular Port-A-Cath tip right atrium Impression: Extensive bilateral pneumonia/ARDS with significant pleural effusions [id number] heart failure
[2025-07-24] MEDS: LIDOCAINE 5% 1 PATCH TOP (13:32)
[2025-07-24] MEDS: METHADONE HCL 10 MG TABLET 25 MG PO (13:44)
[2025-07-24] MEDS: LIDOCAINE 5% 1 PATCH 2 PATCH TOP (13:44)
[2025-07-24 13:46] LABS: Cocci Serology, IgM Negative (Negative)
[2025-07-24] MEDS: fentaNYL CIT INJ 50 mCg/ML AMP 2ML 25 MCG IVP (14:41)
[2025-07-24 16:23] LABS: Base Excess 10 (-3-3); HCO3 36 mEq/L (20-26); Inspired Oxygen, FIO2 60 %; O2 Saturation 94 % (91-98); PCO2 57 mmHg (32.0-48.0); PO2 69 mmHg (83-108); pH, Arterial 7.41 (7.35-7.45)
[2025-07-24 16:24] LABS: Allen Test Performed/OK; Puncture Site Right Radial
--- NOTE | 2025-07-24 16:54 | PD.RESEVENT ---
Documentation for date of: 07/24/25 Event Note Event Note: Rapid response called at ~1600, pt with sustained tachycardia to 140s for the past 2 hours, suspected to be 2/2 pain, however despite methadone 25 mg, fentanyl 25 mcg ivp, and dilaudid 2mg ivp, pt continued to have chest pain and tachycardia to 140s. he remains on hiflow NC at 60%fio2 at 30L. Attempted to drain R lung given pt symptoms, however scant fluid was removed from pleurx tube on the right. <5 cc removed. given pt condition, suspect that he will likely need to be intubated if he remains full code. discussed with pt and daughters the low likelyhood that he will be able to be successfully extubated if he is intubated. discussed the option to change code status to dnr dni, and make patient as comfortable as possible and manage his symptoms without invasive intervention. Pt will discuss with his family. waiting for daughter Rosana to arrive at hospital from [place], to discuss goals of care as a family. Abg drawn with ph 7.41, pco2 57, po2 69, hco3 36 on 60% FiO2.
--- NOTE | 2025-07-24 18:04 | EVENTNT_ITS ---
Documentation for date of: 07/24/25 Event Note Event Note: Goals of Care Discussion (ICU Consult) Garcia Salinas is a 49-year-old male with past medical history significant for stage IV metastatic gastrointestinal adenocarcinoma (with metastatic spread to the lungs, liver, and bones) on FOLFOX + cetuximab + encorafenib, bilateral malignant pleural effusions with bilateral pleural vacuum tubes on 3 - 4 L O2 at home, normocytic anemia, and alcohol use disorder who presented to the [facility] ED on 07/22 for left-sided chest pain and was eventually admitted for increased shortness of breath with increased O2 requirements. On the same day of his admission, a rapid response had been called around 16:00 for sustained tachycardia with heart rate in the 140s and chest pain that had been ongoing for 2 hours, was suspected to be 2/2 pain, and was refractory to methadone, fentanyl, and Dilaudid. At the time, patient was observed to be on 30 L high-flow nasal cannula at 60% FiO2 and an attempt to ameliorate patient's acute condition via drainage of fluid from lung via pleural tube was unsuccessful (draining less than 5 mL of fluid). Due to patient's poor condition, ICU was consulted due to the suspicion that patient would likely require intubation in the near future should he remain Full Code. As a result, a [id number] discussion was held at patient bedside around 18:00 that included patient himself, patient's 2 daughters, patient's , supervising physician Dr. Valerio, Dr. Presley, Dr. Sequeira, Dr. Ribera, RN [facility], and this proposal lead writer. In the discussion, patient and his family were made aware of the implications of remaining Full Code vs. Comfort Care pursuance as well as the opinion of the medical team that patient's prognosis would likely not be meaningfully improved should he end up being intubated. They were also made aware of the discharge conditions regarding oxygen requirement that patient would have to meet for the hospital to feel secure about sending patient home with his family. By the end of the discussion, patient's daughters verbalized that they understood the options open to them as well as the medical team's opinion that, given patient's poor prognosis from his advanced metastatic cancer, intubation would likely only cause undue suffering for the patient without securing any significant prolongation of longevity that preserves worthwhile [id number]. Patient's daughters and RN Lili also translated from Romanian to Cymro what was conveyed during the meeting to the patient and his so that they understood what decisions needed to be made in their near future. After it seemed everyone was mostly on the same page, patient and his family agreed to change patient's Code Status to DNR/DNI and agreed to certify as such on a POLST form. Due to the above, patient ultimately did not end up being admitted to the ICU. Patient care plan and contents of Event Note were discussed with senior resident Dr. Sequeira (PGY-3) and attending physician, Dr. Schmitt. Catalino Quinones, DO Internal Medicine, PGY-1
--- NOTE | 2025-07-24 18:10 | PD.RESEVENT ---
Documentation for date of: 07/24/25 Event Note Event Note: Change of code status: From full code to DNR/DNI. Patient's family including and two daughters were at bedside. Medical response team Dr. Valerio, Dr. Presley, Dr. Sequeira, and myself were present. Their was a rapid response earlier this afternoon due to tachycardia rate 140?150, tachypnea 20?25. Patient was on high flow nasal cannula saturating 95% on 35L on 60%FiO2. Patient was also complaining of worsening pain even after receiving 2 mg IV Dilaudid q3hr and 25 mg methadone TID with fentanyl 25 mcg push. Continued exhibiting worsening shortness of breath with accessory muscle use. Family was at bedside and updated on prognosis. Was discussed at length about possible intubation however at that time patient denied further intervention. Decision was made with family and medical response team that patient will change CODE STATUS from full code to DNR/DNI. POLST form was filled out by the family and care provider. Instructions were given to start comfort care measures if patient's respiratory status continues to deteriorate. Start comfort care measures when patient exhibits worsening Tachypnea rate in the high 30s, high flow nasal cannula 40 L at FiO2 80%. The patient's management plan was discussed with my attending physician Dr. Valerio. Shirin Ribera, PGY-2
[2025-07-24] MEDS: oxyCODONE CONTROLLED RELEASE 10 MG TABCR 15 MG PO (21:32)
[2025-07-24 22:24] LABS: Vancomycin,Trough 13.3 mcg/mL (5.0-10.0)
[2025-07-25] VITALS (15 sets, daily range): BP systolic 106–132; BP diastolic 72–92; PULSE 88–119; RESP 12–20; TEMP 36.3–36.6; O2SAT 93–97
[2025-07-25 05:30] LABS: Basophils # (Auto) 0.0 Thou/mm3 (0.0-0.2); Basophils % (Auto) 0 % (0-2.5); Eosinophils # (Auto) 0.0 Thou/mm3 (0.0-0.5); Eosinophils % (Auto) 0 % (0-10); Hematocrit 25.1 % (41.0-53.0); Hemoglobin 7.9 g/dL (13.5-16.0); Immature Granulocytes Auto 0.06 Thou/mm3 (0.00-0.00); Lymphocytes # (Auto) 0.7 Thou/mm3 (1.0-4.8); Lymphocytes % (Auto) 9 % (10-50); Mean Corpuscular HGB Conc 31.5 g/dl (31.0-37.0); Mean Corpuscular Hemoglobin 30.9 pg (25.0-35.0); Mean Corpuscular Volume 98 fL (80-100); Monocytes # (Auto) 0.2 Thou/mm3 (0.0-0.8); Monocytes % (Auto) 2 % (0-12); Neutrophils # (Auto) 7.0 Thou/mm3 (1.8-7.7); Neutrophils % (Auto) 88 % (37-80); Nucleated Red Blood Cell # 0.00 Thou/mm3 (0.00-0.00); Nucleated Red Blood Cell % 0 /100 WBC (0); Platelet Count 287 Thou/mm3 (140-440); RDW Standard Deviation 53.4 fL (35.1-43.9); Red Blood Count 2.56 Miln/mm3 (4.50-5.90); White Blood Count 7.9 Thou/mm3 (3.8-10.6)
[2025-07-25 06:02] LABS: Alanine Aminotransferase 14 U/L (10-49); Albumin, Serum 2.9 gm/dL (3.5-5.0); Albumin/Globulin Ratio 1.8 (1.2-2.2); Alkaline Phosphatase 771 U/L (46-116); Anion Gap 8 (7-16); Aspartate Amino Transferase 19 U/L (0-34); BUN/Creatinine Ratio 30 Ratio (12-20); Bilirubin,Total 0.2 mg/dL (0.3-1.2); Blood Urea Nitrogen 12 mg/dL (9-23); Calcium 8.7 mg/dL (8.3-10.6); Calcium (Corrected) 9.6 mg/dL (8.5-10.1); Carbon Dioxide 35.3 mMol/L (20.0-31.0); Chloride 97 mMol/L (98-107); Creatinine (Component) 0.4 mg/dL (0.6-1.3); Estimated Creatinine Clearance 171.5 mL/min (>60); Globulin 1.6 gm/dL (2.3-3.5); Glucose 147 mg/dL (74-106); Osmolality,Calculated 282 (275-295); Potassium 4.1 mMol/L (3.4-5.1); Sodium 140 mMol/L (136-145); Total Protein 4.5 gm/dL (5.7-8.2); eGFR > 60 See Note
[2025-07-25] MEDS: CEFEPIME INJ 2 GM in SODIUM CHLORIDE 0.9% (Popper) 50 ML IV ×3 (06:04→21:32)
--- NOTE | 2025-07-25 07:13 | ESPR_ITS ---
<Statement entered by Shirin Ribera MD - 07/25/25 15:50> Patient examined at bedside. No events overnight. Daughter was at bedside. Patient's pain has improved since yesterday. Continues to remain on high flow nasal cannula at 30 L on 60% FiO2. Tachycardia has improved now rate 90?100. Respiratory rate 12, saturating 96%. Family is considering comfort care at home. At this time, continue fentanyl and Dilaudid as needed for pain. Continue IV methylprednisone 40 mg daily in setting of his ARDS and Vancomycin/cefepime for HAP. Closely monitor status. Plan to start comfort care measure in hospital if he appears to be worsening clinically, tachypnea rate in the high 30s, high flow nasal cannula 40 L at FiO2 80%. The patient's management plan was discussed with my attending physician Dr. Valerio. Shirin Ribera, PGY-2 Documentation for date of: 07/25/25 Subjective Subjective Interval history: Mr. Garcia 49M with metastatic adenocarcinoma (mets in lung, liver and bone) on 3-4 L oxygen at home, who was transferred to [facility] for 1 month for workup of suspected small bowel cancer now on FOLFOX plus cetuximab plus encorafenib (last chemo was 3 weeks ago at [facility]) (followed by Dr. Cody and Dr. Schwartz), normocytic anemia, and bilateral malignant pleural effusions with pleur vac tubes bilaterally (per she drains one side every other day) he has had significant weight loss (BMI 18) who presented with increased work of breathing found to have PNA on Bipap PRN 07/22/2025: Left lung drained 100ccs. 07/23/2025: patient seen and examined at bedside, family not yet present. he is sattin 96% on 6L NC, with accessory muscle use, pt is extremely anxious despite 1x 0.5 lorazapam given. Given lasix 40 IV, pt has bipap prn, however does not like the sensation of the mask. Dr. Schwartz saw patient. goal is to keep lungs as dry as possibel and continue to monitor ARDS. pO2 :FiO2 105, repeat ABG done. Daily cxr. Dietition reccomends multivitamins in addition to meal supplements. trial seroquel 25 for anxiety 07/24/2025: Patient seen and examined at, patient present on high flow nasal cannula at 50% FiO2. Pt tolerated seroquel well yesterday, will increase dose today to manage his anxiety. pending cocci serologies. given pt is on low dose methadone, and pain is not adequately controlled, favor increasing methadone for more long acting pain control. and using dilaudid for breakthrough pain. He is not oversedated and his respiratory rate is often elevated rather than depressed. Spoke to daughter Rosana today about pt's care while in the hospital and plan for goals of care discussion with family. continues on Lasix 40 qd, blood pressure is tolerating well. pt today requested lidocaine patches for pain in his chest and back. CODE STATUS CHANGE TO DNR/DNI 07/25/2025: Patient seen and examined at bedside, daughter rosana is present. continues on high flow nasal canula 60% fio2 at 30 L, overnight discontinued methadone and continued on short acting agents fentanyl and dilaudid prn for pain. pt appears comfortable this morning and is sleeping. he is tachycardic to 110 today , but respiration rate markedly decreased, currently rr 19. continues on vanc and cefepime for pneumonia. Exam Vital Signs Temp Pulse Resp BP Pulse Ox O2 Del Method O2 Flow Rate 97.4 F 97 12 106/72 97 High Flow Nasal Cannula 30 07/25/25 04:00 07/25/25 04:00 07/25/25 04:00 07/25/25 04:00 07/25/25 04:00 07/25/25 04:00 07/25/25 04:00 FiO2 60 07/25/25 04:00 Narrative Exam General: Cachectic, resting peacefully, more comfortable than prior, on high flow nasal cannula Neuro: A&O x3, no focal deficits HEENT: Moist mucous membranes, no nasal congestion CV: Tachycardic, regular rhythm, no murmurs Resp: Labored respirations accessory muscle use, decreased breath sounds bilaterally, Bilateral pleurevac tubes, mild wheezing, on high flow NC @ 50% fio2 GI: Abdomen soft, non-tender, non-distended Extremities: No edema, 2+ pulses, some trace edema bilaterally in the feet to the mid shins. Skin: Warm, dry, wound mid scapula on back , lidocaine patches in place on back and chest prn Psych: less anxious appearing, appropriate responses Objective Labs 07/29/25 04:18 07/29/25 04:18 Labs: Laboratory Results - last 24 hr 07/24/25 07/24/25 07/24/25 07:45 10:30 16:12 WBC RBC Hgb Hct MCV MCH MCHC RDW Std Deviation Plt Count Neut % (Auto) Lymph % (Auto) Metcalfe % (Auto) Eos % (Auto) Baso % (Auto) Neut # (Auto) Lymph # (Auto) Metcalfe # (Auto) Eos # (Auto) Baso # (Auto) Immature Gran # (Auto) Absolute Nucleated RBC Immature Gran % Nucleated RBC % Puncture Site Right Radial Right Radial ABG pH 7.40 7.41 ABG pCO2 57 H 57 H ABG pO2 58 L* 69 L ABG HCO3 35 H 36 H ABG O2 Saturation 90 L 94 ABG Base Excess 9 H 10 H Oxygen Liter Flow 5 FiO2 21 60 Sodium Potassium Chloride Carbon Dioxide Anion Gap BUN Creatinine Estim Creat Clear Calc eGFR BUN/Creatinine Ratio Glucose Calculated Osmolality Calcium Corrected Calcium Total Bilirubin AST ALT Alkaline Phosphatase Total Protein Albumin Globulin Albumin/Globulin Ratio Vancomycin Trough Coccidioides IgM Ab Negative 07/24/25 07/25/25 20:36 04:25 WBC 7.9 RBC 2.56 L Hgb 7.9 L Hct 25.1 L MCV 98 MCH 30.9 MCHC 31.5 RDW Std Deviation 53.4 H Plt Count 287 D Neut % (Auto) 88 H Lymph % (Auto) 9 L Metcalfe % (Auto) 2 Eos % (Auto) 0 Baso % (Auto) 0 Neut # (Auto) 7.0 Lymph # (Auto) 0.7 L Metcalfe # (Auto) 0.2 Eos # (Auto) 0.0 Baso # (Auto) 0.0 Immature Gran # (Auto) 0.06 H Absolute Nucleated RBC 0.00 Immature Gran % 1 H Nucleated RBC % 0 Puncture Site ABG pH ABG pCO2 ABG pO2 ABG HCO3 ABG O2 Saturation ABG Base Excess Oxygen Liter Flow FiO2 Sodium 140 Potassium 4.1 Chloride 97 L Carbon Dioxide 35.3 H Anion Gap 8 BUN 12 Creatinine 0.4 L Estim Creat Clear Calc 171.5 eGFR > 60 BUN/Creatinine Ratio 30 H Glucose 147 H D Calculated Osmolality 282 Calcium 8.7 Corrected Calcium 9.6 Total Bilirubin 0.2 L AST 19 ALT 14 Alkaline Phosphatase 771 H D Total Protein 4.5 L Albumin 2.9 L Globulin 1.6 L Albumin/Globulin Ratio 1.8 Vancomycin Trough 13.3 H Coccidioides IgM Ab ABG Interpretation ABG results: 07/22/25 07/22/25 07/22/25 09:48 17:57 22:34 ABG pH 7.40 7.43 ABG pCO2 53 H 51 H ABG pO2 81 L 74 L ABG HCO3 33 H 34 H ABG O2 Saturation 97 96 ABG Base Excess 7 H 8 H VBG pH 7.43 VBG pCO2 51 VBG pO2 32 VBG Base Excess 8 H 07/23/25 07/24/25 07/24/25 12:54 07:45 16:12 ABG pH 7.42 7.40 7.41 ABG pCO2 54 H 57 H 57 H ABG pO2 73 L 58 L* 69 L ABG HCO3 35 H 35 H 36 H ABG O2 Saturation 96 90 L 94 ABG Base Excess 9 H 9 H 10 H VBG pH VBG pCO2 VBG pO2 VBG Base Excess Quality Measures Quality Measures VTE prophylaxis Assessment & Plan Assessment Current Active Medications: Generic Name Dose Route Start Last Admin Trade Name Freq PRN Reason Stop Dose Admin Acetaminophen 650 mg 07/22/25 13:44 Acetaminophen 325 Mg Tablet PO 08/21/25 13:43 Q6H PRN Fever >100.4 and pain 1-4 Docusate Sodium 100 mg 07/23/25 11:45 07/24/25 08:24 Docusate Sod 100 Mg Capsule PO 08/22/25 11:44 100 mg QDAY JUAN JOSE Administration Protocol Doxycycline Hyclate 100 mg 07/23/25 09:00 07/24/25 21:32 Doxycycline 100 Mg Tablet PO 07/30/25 08:59 100 mg BID JUAN JOSE Administration Fentanyl Citrate 25 mcg 07/24/25 18:04 Fentanyl Cit Inj 50 Mcg/Ml Amp 2ml IVP 07/29/25 18:03 Q4HR PRN pain 9-10 Furosemide 40 mg 07/23/25 10:30 07/24/25 08:23 Furosemide Inj 10 Mg/Ml 4ml Vial IVP 08/22/25 10:29 40 mg QDAY JUAN JOSE Administration Hydromorphone HCl 2 mg 07/24/25 18:07 07/24/25 22:46 Hydromorphone Inj 2 Mg/Ml Vial IVP 07/27/25 16:28 2 mg Q3HR PRN Administration Pain 6-8 Cefepime HCl 2 gm/ Sodium 50 mls @ 100 mls/hr 07/22/25 13:43 07/25/25 06:04 Chloride IV 07/29/25 13:42 100 mls/hr Q8HR JUAN JOSE Administration Vancomycin HCl/Dextrose 250 mls @ 120 mls/hr 07/25/25 10:00 Vancomycin/D5w 1,250 Mg Ivpb IV 08/01/25 09:59 BID@1000,2200 JUAN JOSE Protocol Lidocaine 2 patch 07/24/25 13:34 07/24/25 13:44 Lidocaine 5% 1 Patch TOP 08/23/25 13:33 2 patch UD PRN Administration PAIN Protocol Methylprednisolone Sodium Succinate 40 mg 07/25/25 09:00 Methylprednisolone Sod Succ 40 Mg/Ml Vial IVP 08/01/25 08:59 QDAY JUAN JOSE Multivitamins/Minerals 15 ml 07/24/25 09:00 07/24/25 08:24 Multivitamin 15 Ml Udc PO 08/23/25 08:59 15 ml QDAY JUAN JOSE Administration Ondansetron HCl 8 mg 07/22/25 13:44 Ondansetron Inj 2 Mg/Ml Inj 2 Ml IVP 08/21/25 13:43 Q6H PRN NAUSEA OR VOMITING Protocol Pharmacy Consult 1 each 07/23/25 06:17 Vancomycin Pharmacy To Dose 1 Each Each IV 08/21/25 13:44 QDAY PRN PROTOCOL Quetiapine Fumarate 50 mg 07/25/25 09:00 Quetiapine Fumarate 25 Mg Tablet PO 08/24/25 08:59 QDAY JUAN JOSE Sennosides 2 tab 07/22/25 13:59 Senna Tablet PO 08/21/25 13:58 QDAY PRN CONSTIPATION Protocol Plan Mr. Garcia 49M with metastatic adenocarcinoma (mets in lung, liver and bone) on 3-4 L oxygen at home, who was transferred to [facility] for 1 month for workup of suspected small bowel cancer now on FOLFOX plus cetuximab plus encorafenib (last chemo was 3 weeks ago at [facility]) (followed by Dr. Cody and Dr. Schwartz), normocytic anemia, and bilateral malignant pleural effusions with pleur vac tubes bilaterally (per she drains one side every other day) he has had significant weight loss (BMI 18) who presented with increased work of breathing found to have PNA on Bipap PRN, and lasix qd. Pt now dnr/dni managing ARDS, pna, and pain. Acute hypoxic respiratory failure 2/2 Moderate ARDS Stage IV Metastatic Adenocarcinoma- poor prognosis bilateral malignant pleural effusions with pleurx tubes hospital acquired bibasilar pneumonia Metastatic pulmonary nodules Severe bilateral atelectasis follows with Dr. Cody and Lana. reports draining 1 lung every other day, states that left lung is due to be drained 07/22, on Chemo at [facility] (FOLFOX plus cetuximab plus encorafenib) CXR and CT chest with bilateral effusions and pleurx tubes in appropriate positions, bibasilar pleural effusion Tx - drain lungs when symptomatic - s/p L lung drained overnight with 100cc output 07/22 - dexamethasone 10 mg IVP x1 - Ceftriaxone 2 mg x1 (07/22) - Azithromycin 500mg x1 (07/22) - Vancomycin (pharmacy to dose) (07/22- - Cefepime 2gm q8hr (07/22- - Lasix 40 mg IV qd - Consult Oncology, Dr Schwartz for prognosis and goals of care discussion and possible hospice - methylprednisolone 4o mg IV qd (07/25- - Pain Meds: 07/24: d/c Methadone 25mg q8hr scheduled Dilaudid 2mg IV q3hr prn fentanyl 25mcg q4hr prn lidocaine patches - Nausea Meds: Zofran 8mg q6hr PRN - highflow NC PRN - Daily CXR to monitor ards, - avoid albuterol given tachycardia. Anxiety - given lorazapam 0.5 x1 with minimal effect. - increased seroquel from 25 qd to 50 qd, tolerating well, anxiety better controlled Sinus Tachycardia - less severe today CTM given pt on some qt prolonging agents could be 2/2 poor lung reserves vs anemia, vs pain. EKG with sinus tachycardia Normocytic anemia (hgb 8) requiring multiple blood transfusions on prior admissions 2/2 gi losses - type and screen - monitor BM for viv blood - transfuse if hgb <7 Anorexia Malnutrition 2/2 malignancy Hypoalbuminemia BMI 18 - Dietition referred, appreciate recs - regular diet, mechanical dysphagia 2. - ensure high plus max with meals - po liquid multivitamin qd Coagulopathy 2/2 malignancy - PT elevated - On SCDs for vte ppx Chronic elevated alk phos (893) mets to the liver - CTM Back wound -wound care consulted - continue doxycycline 100 mg BID Dispo: admit to tele, continues on high flow nc, and iv abx, now dnr,dni Diet: regular, mechanical dysphagia 2 Bowel Reg: senna 2 tab qd prn VTE ppx: hold SCDs GI ppx: Protonix 40 IV qd Code status: FULL Plan discussed with Dr. Ribera, and Dr. 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 Of note, had a next tensive discussion with patient, using an tour narrator regarding goals of care and updated them that unfortunately this is a poor prognosis and discussed goals of care however they stated they want patient to be full code they understand that he might not make it if he got intubated however stated that they want patient to be full code for which we will respect.I reviewed above note and agree with findings and plans. I have also personally examined the patient with medicine team and went over assessment and plan with medical team including engineering intern and resident physician.
[2025-07-25 08:39] LABS: Base Excess 11 (-3-3); HCO3 37 mEq/L (20-26); Inspired Oxygen, FIO2 60 %; O2 Saturation 96 % (91-98); PCO2 57 mmHg (32.0-48.0); PO2 79 mmHg (83-108); pH, Arterial 7.42 (7.35-7.45)
[2025-07-25 08:54] LABS: Allen Test Performed/OK; Puncture Site Right Radial
[2025-07-25] MEDS: FUROSEMIDE INJ 10 MG/ML 4ML VIAL 40 MG IVP (09:38)
[2025-07-25] MEDS: MULTIVITAMIN 15 ML UDC PO (09:38)
[2025-07-25] MEDS: DOXYCYCLINE 100 MG TABLET PO ×2 (09:39→21:31)
[2025-07-25] MEDS: DOCUSATE SOD 100 MG CAPSULE PO (09:39)
[2025-07-25] MEDS: VANCOMYCIN/D5W 1,250 MG IVPB 250 ML 120 MG IV ×2 (09:39→22:35)
[2025-07-25 13:58] LABS: Cocci Serology, IgG Negative (Negative)
--- NOTE | 2025-07-25 15:07 | PC.SS ---
Rounding note: On high flow, weaning down oxygen. Family requesting to take patient home with comfort care, safety risk for patient. Comfort care may begin in patient. Discharge plan pending.
[2025-07-25] MEDS: LIDOCAINE 5% 1 PATCH 2 PATCH TOP (16:51)
--- NOTE | 2025-07-25 18:31 | ESPR_ITS ---
Documentation for date of: 07/25/25 Subjective Subjective Interval history: Appears more comfortable this p.m. with high flow nasal cannula . Exam Vital Signs Temp Pulse Resp BP Pulse Ox O2 Del Method O2 Flow Rate 97.3 F 104 H 18 124/82 95 Nasal Cannula 30 07/25/25 16:00 07/25/25 16:35 07/25/25 16:35 07/25/25 16:00 07/25/25 16:35 07/25/25 16:00 07/25/25 16:35 FiO2 60 07/25/25 16:35 Narrative Exam Appears comfortable on high flow nasal cannula. Objective Labs 07/25/25 04:25 07/25/25 04:25 Labs: Laboratory Results - last 24 hr 07/22/25 07/24/25 07/24/25 14:47 10:30 20:36 WBC RBC Hgb Hct MCV MCH MCHC RDW Std Deviation Plt Count Neut % (Auto) Lymph % (Auto) Benzie % (Auto) Eos % (Auto) Baso % (Auto) Neut # (Auto) Lymph # (Auto) Benzie # (Auto) Eos # (Auto) Baso # (Auto) Immature Gran # (Auto) Absolute Nucleated RBC Immature Gran % Nucleated RBC % Puncture Site ABG pH ABG pCO2 ABG pO2 ABG HCO3 ABG O2 Saturation ABG Base Excess FiO2 Sodium Potassium Chloride Carbon Dioxide Anion Gap BUN Creatinine Estim Creat Clear Calc eGFR BUN/Creatinine Ratio Glucose Calculated Osmolality Calcium Corrected Calcium Total Bilirubin AST ALT Alkaline Phosphatase Total Protein Albumin Globulin Albumin/Globulin Ratio Vancomycin Trough 13.3 H Coccidioides IgG Ab Negative Crossmatch See Detail 07/25/25 07/25/25 04:25 08:20 WBC 7.9 RBC 2.56 L Hgb 7.9 L Hct 25.1 L MCV 98 MCH 30.9 MCHC 31.5 RDW Std Deviation 53.4 H Plt Count 287 D Neut % (Auto) 88 H Lymph % (Auto) 9 L Benzie % (Auto) 2 Eos % (Auto) 0 Baso % (Auto) 0 Neut # (Auto) 7.0 Lymph # (Auto) 0.7 L Benzie # (Auto) 0.2 Eos # (Auto) 0.0 Baso # (Auto) 0.0 Immature Gran # (Auto) 0.06 H Absolute Nucleated RBC 0.00 Immature Gran % 1 H Nucleated RBC % 0 Puncture Site Right Radial ABG pH 7.42 ABG pCO2 57 H ABG pO2 79 L ABG HCO3 37 H ABG O2 Saturation 96 ABG Base Excess 11 H FiO2 60 Sodium 140 Potassium 4.1 Chloride 97 L Carbon Dioxide 35.3 H Anion Gap 8 BUN 12 Creatinine 0.4 L Estim Creat Clear Calc 171.5 eGFR > 60 BUN/Creatinine Ratio 30 H Glucose 147 H D Calculated Osmolality 282 Calcium 8.7 Corrected Calcium 9.6 Total Bilirubin 0.2 L AST 19 ALT 14 Alkaline Phosphatase 771 H D Total Protein 4.5 L Albumin 2.9 L Globulin 1.6 L Albumin/Globulin Ratio 1.8 Vancomycin Trough Coccidioides IgG Ab Crossmatch ABG Interpretation ABG results: 07/22/25 07/22/25 07/22/25 09:48 17:57 22:34 ABG pH 7.40 7.43 ABG pCO2 53 H 51 H ABG pO2 81 L 74 L ABG HCO3 33 H 34 H ABG O2 Saturation 97 96 ABG Base Excess 7 H 8 H VBG pH 7.43 VBG pCO2 51 VBG pO2 32 VBG Base Excess 8 H 07/23/25 07/24/25 07/24/25 12:54 07:45 16:12 ABG pH 7.42 7.40 7.41 ABG pCO2 54 H 57 H 57 H ABG pO2 73 L 58 L* 69 L ABG HCO3 35 H 35 H 36 H ABG O2 Saturation 96 90 L 94 ABG Base Excess 9 H 9 H 10 H VBG pH VBG pCO2 VBG pO2 VBG Base Excess 07/25/25 08:20 ABG pH 7.42 ABG pCO2 57 H ABG pO2 79 L ABG HCO3 37 H ABG O2 Saturation 96 ABG Base Excess 11 H VBG pH VBG pCO2 VBG pO2 VBG Base Excess Assessment & Plan A&P Narrative 1. Metastatic adenocarcinoma with significant lung and bone involvement stage IV. 2. Recently received 2 cycles of chemo as inpatient at [facility]. Awaiting continuation with outpatient chemo care at [facility]. 3. Admitted with significant pneumonia and ARDS symptoms. Receiving antibiotics steroids oxygen pain meds and other supportive care. 4. Spoke with family. As he clinically improves and comes home they are to contact the cancer treatment center for follow-up. Time Spent With Patient Time: Total time spent is greater than 50% in coordination of care (as documented) at patient's floor/unit and/or counseling patient:
[2025-07-25] MEDS: MELATONIN 3 MG TABLET 6 MG PO (21:31)
[2025-07-25] MEDS: HYDROmorphone INJ 2 MG/ML VIAL IVP (21:31)
[2025-07-26] VITALS (15 sets, daily range): BP systolic 102–129; BP diastolic 70–80; PULSE 80–111; RESP 13–21; TEMP 36.2–36.5; O2SAT 92–99
[2025-07-26] MEDS: CEFEPIME INJ 2 GM in SODIUM CHLORIDE 0.9% (Popper) 50 ML IV ×3 (05:34→22:01)
[2025-07-26 05:40] LABS: Basophils # (Auto) 0.0 Thou/mm3 (0.0-0.2); Basophils % (Auto) 0 % (0-2.5); Eosinophils # (Auto) 0.0 Thou/mm3 (0.0-0.5); Eosinophils % (Auto) 0 % (0-10); Hematocrit 25.7 % (41.0-53.0); Immature Granulocytes Auto 0.10 Thou/mm3 (0.00-0.00); Lymphocytes # (Auto) 1.4 Thou/mm3 (1.0-4.8); Lymphocytes % (Auto) 12 % (10-50); Mean Corpuscular HGB Conc 31.5 g/dl (31.0-37.0); Mean Corpuscular Hemoglobin 30.7 pg (25.0-35.0); Mean Corpuscular Volume 97 fL (80-100); Monocytes # (Auto) 1.3 Thou/mm3 (0.0-0.8); Monocytes % (Auto) 10 % (0-12); Neutrophils # (Auto) 9.6 Thou/mm3 (1.8-7.7); Neutrophils % (Auto) 77 % (37-80); Nucleated Red Blood Cell # 0.00 Thou/mm3 (0.00-0.00); Nucleated Red Blood Cell % 0 /100 WBC (0); Platelet Count 325 Thou/mm3 (140-440); RDW Standard Deviation 52.8 fL (35.1-43.9); Red Blood Count 2.64 Miln/mm3 (4.50-5.90); White Blood Count 12.4 Thou/mm3 (3.8-10.6)
[2025-07-26 05:57] LABS: Hemoglobin 8.1 g/dL (13.5-16.0)
[2025-07-26 06:08] LABS: Alanine Aminotransferase 27 U/L (10-49); Albumin, Serum 2.9 gm/dL (3.5-5.0); Albumin/Globulin Ratio 1.6 (1.2-2.2); Alkaline Phosphatase 814 U/L (46-116); Anion Gap 6 (7-16); Aspartate Amino Transferase 36 U/L (0-34); BUN/Creatinine Ratio 30 Ratio (12-20); Bilirubin,Total 0.2 mg/dL (0.3-1.2); Blood Urea Nitrogen 12 mg/dL (9-23); Calcium 9.1 mg/dL (8.3-10.6); Calcium (Corrected) 10.0 mg/dL (8.5-10.1); Carbon Dioxide 37.1 mMol/L (20.0-31.0); Chloride 94 mMol/L (98-107); Creatinine (Component) 0.4 mg/dL (0.6-1.3); Estimated Creatinine Clearance 171.5 mL/min (>60); Globulin 1.8 gm/dL (2.3-3.5); Glucose 116 mg/dL (74-106); Osmolality,Calculated 274 (275-295); Potassium 3.7 mMol/L (3.4-5.1); Sodium 137 mMol/L (136-145); Total Protein 4.7 gm/dL (5.7-8.2); eGFR > 60 See Note
--- NOTE | 2025-07-26 07:33 | ESPR_ITS ---
<Statement entered by Shirin Ribera MD - 07/26/25 20:15> Patient examined at bedside. No events overnight. Pain is better controlled today. Continues to remain on high flow nasal cannula 25L at 50%FiO2. HR 100- 110, RR 20, 96% oxygen. Continue to wean and transition to oxymask. Family will take patient home on hospice when stable. At this time, continue fentanyl and Dilaudid as needed for pain. Started Percoet 5mg q8hr to prevent withdrawl due to decresed need of PRN IV pain meds. Continue IV methylprednisone 40 mg daily in setting of his ARDS and Vancomycin/cefepime for HAP. Closely monitor status. The patient's management plan was discussed with my attending physician Dr. Valerio. Shirin Ribera, PGY-2 Documentation for date of: 07/26/25 Subjective Subjective Interval history: Mr. Garcia 49M with metastatic adenocarcinoma (mets in lung, liver and bone) on 3-4 L oxygen at home, who was transferred to [facility] for 1 month for workup of suspected small bowel cancer now on FOLFOX plus cetuximab plus encorafenib (last chemo was 3 weeks ago at [facility]) (followed by Dr. Cody and Dr. Schwartz), normocytic anemia, and bilateral malignant pleural effusions with pleur vac tubes bilaterally (per she drains one side every other day) he has had significant weight loss (BMI 18) who presented with increased work of breathing found to have PNA on Bipap PRN 07/22/2025: Left lung drained 100ccs. 07/23/2025: patient seen and examined at bedside, family not yet present. he is sattin 96% on 6L NC, with accessory muscle use, pt is extremely anxious despite 1x 0.5 lorazapam given. Given lasix 40 IV, pt has bipap prn, however does not like the sensation of the mask. Dr. Schwartz saw patient. goal is to keep lungs as dry as possibel and continue to monitor ARDS. pO2 :FiO2 105, repeat ABG done. Daily cxr. Dietition reccomends multivitamins in addition to meal supplements. trial seroquel 25 for anxiety 07/24/2025: Patient seen and examined at, patient present on high flow nasal cannula at 50% FiO2. Pt tolerated seroquel well yesterday, will increase dose today to manage his anxiety. pending cocci serologies. given pt is on low dose methadone, and pain is not adequately controlled, favor increasing methadone for more long acting pain control. and using dilaudid for breakthrough pain. He is not oversedated and his respiratory rate is often elevated rather than depressed. Spoke to daughter Rosana today about pt's care while in the hospital and plan for goals of care discussion with family. continues on Lasix 40 qd, blood pressure is tolerating well. pt today requested lidocaine patches for pain in his chest and back. CODE STATUS CHANGE TO DNR/DNI 07/25/2025: Patient seen and examined at bedside, daughter rosana is present. continues on high flow nasal canula 60% fio2 at 30 L, overnight discontinued methadone and continued on short acting agents fentanyl and dilaudid prn for pain. pt appears comfortable this morning and is sleeping. he is tachycardic to 110 today , but respiration rate markedly decreased, currently rr 19. continues on vanc and cefepime for pneumonia. 07/26/2025: Patient seen and examined at [facility]. weaning high flow nc, now on 20 L 45% fio2, continues on lidocaine patches as needed, and percocet q8hr and dilaudid prn for pain. better controlled. pt had jaquan bm yesterday. Exam Vital Signs Temp Pulse Resp BP Pulse Ox O2 Del Method O2 Flow Rate 97.1 F 100 14 121/80 94 L High Flow Nasal Cannula 25 07/26/25 04:00 07/26/25 07:14 07/26/25 07:14 07/26/25 04:00 07/26/25 07:14 07/26/25 04:00 07/26/25 07:14 FiO2 50 07/26/25 07:14 Narrative Exam General: Cachectic, comfortable on high flow nasal cannula Neuro: A&O x3, no focal deficits HEENT: Moist mucous membranes, no nasal congestion CV: Tachycardic, regular rhythm, no murmurs Resp: Breathing is less labored. decreased breath sounds bilaterally, Bilateral pleurevac tubes, mild wheezing, on high flow NC @ 45% fio2 GI: Abdomen soft, non-tender, non-distended Extremities: No edema, 2+ pulses, some trace edema bilaterally in the feet to the mid shins. Skin: Warm, dry, wound mid scapula on back , lidocaine patches in place on back and chest prn Psych: less anxious appearing, appropriate responses Objective Labs 07/29/25 04:18 07/29/25 04:18 Labs: Laboratory Results - last 24 hr 07/22/25 07/24/25 07/25/25 14:47 10:30 08:20 WBC RBC Hgb Hct MCV MCH MCHC RDW Std Deviation Plt Count Neut % (Auto) Lymph % (Auto) [place] % (Auto) Eos % (Auto) Baso % (Auto) Neut # (Auto) Lymph # (Auto) [place] # (Auto) Eos # (Auto) Baso # (Auto) Immature Gran # (Auto) Absolute Nucleated RBC Immature Gran % Nucleated RBC % Puncture Site Right Radial ABG pH 7.42 ABG pCO2 57 H ABG pO2 79 L ABG HCO3 37 H ABG O2 Saturation 96 ABG Base Excess 11 H FiO2 60 Sodium Potassium Chloride Carbon Dioxide Anion Gap BUN Creatinine Estim Creat Clear Calc eGFR BUN/Creatinine Ratio Glucose Calculated Osmolality Calcium Corrected Calcium Total Bilirubin AST ALT Alkaline Phosphatase Total Protein Albumin Globulin Albumin/Globulin Ratio Coccidioides IgG Ab Negative Crossmatch See Detail 07/26/25 05:21 WBC 12.4 H D RBC 2.64 L Hgb 8.1 L Hct 25.7 L MCV 97 MCH 30.7 MCHC 31.5 RDW Std Deviation 52.8 H Plt Count 325 D Neut % (Auto) 77 Lymph % (Auto) 12 [place] % (Auto) 10 Eos % (Auto) 0 Baso % (Auto) 0 Neut # (Auto) 9.6 H Lymph # (Auto) 1.4 [place] # (Auto) 1.3 H Eos # (Auto) 0.0 Baso # (Auto) 0.0 Immature Gran # (Auto) 0.10 H Absolute Nucleated RBC 0.00 Immature Gran % 1 H Nucleated RBC % 0 Puncture Site ABG pH ABG pCO2 ABG pO2 ABG HCO3 ABG O2 Saturation ABG Base Excess FiO2 Sodium 137 Potassium 3.7 Chloride 94 L Carbon Dioxide 37.1 H Anion Gap 6 L BUN 12 Creatinine 0.4 L Estim Creat Clear Calc 171.5 eGFR > 60 BUN/Creatinine Ratio 30 H Glucose 116 H Calculated Osmolality 274 L Calcium 9.1 Corrected Calcium 10.0 Total Bilirubin 0.2 L AST 36 H ALT 27 Alkaline Phosphatase 814 H D Total Protein 4.7 L Albumin 2.9 L Globulin 1.8 L Albumin/Globulin Ratio 1.6 Coccidioides IgG Ab Crossmatch ABG Interpretation ABG results: 07/22/25 07/22/25 07/22/25 09:48 17:57 22:34 ABG pH 7.40 7.43 ABG pCO2 53 H 51 H ABG pO2 81 L 74 L ABG HCO3 33 H 34 H ABG O2 Saturation 97 96 ABG Base Excess 7 H 8 H VBG pH 7.43 VBG pCO2 51 VBG pO2 32 VBG Base Excess 8 H 07/23/25 07/24/25 07/24/25 12:54 07:45 16:12 ABG pH 7.42 7.40 7.41 ABG pCO2 54 H 57 H 57 H ABG pO2 73 L 58 L* 69 L ABG HCO3 35 H 35 H 36 H ABG O2 Saturation 96 90 L 94 ABG Base Excess 9 H 9 H 10 H VBG pH VBG pCO2 VBG pO2 VBG Base Excess 07/25/25 08:20 ABG pH 7.42 ABG pCO2 57 H ABG pO2 79 L ABG HCO3 37 H ABG O2 Saturation 96 ABG Base Excess 11 H VBG pH VBG pCO2 VBG pO2 VBG Base Excess Quality Measures Quality Measures VTE prophylaxis Assessment & Plan Assessment Current Active Medications: Generic Name Dose Route Start Last Admin Trade Name Freq PRN Reason Stop Dose Admin Acetaminophen 650 mg 07/22/25 13:44 Acetaminophen 325 Mg Tablet PO 08/21/25 13:43 Q6H PRN Fever >100.4 and pain 1-4 Docusate Sodium 100 mg 07/23/25 11:45 07/25/25 09:39 Docusate Sod 100 Mg Capsule PO 08/22/25 11:44 100 mg QDAY JUAN JOSE Administration Protocol Doxycycline Hyclate 100 mg 07/23/25 09:00 07/25/25 21:31 Doxycycline 100 Mg Tablet PO 07/30/25 08:59 100 mg BID JUAN JOSE Administration Fentanyl Citrate 25 mcg 07/24/25 18:04 Fentanyl Cit Inj 50 Mcg/Ml Amp 2ml IVP 07/29/25 18:03 Q4HR PRN pain 9-10 Furosemide 40 mg 07/23/25 10:30 07/25/25 09:38 Furosemide Inj 10 Mg/Ml 4ml Vial IVP 08/22/25 10:29 40 mg QDAY JUAN JOSE Administration Hydromorphone HCl 2 mg 07/24/25 18:07 07/25/25 21:31 Hydromorphone Inj 2 Mg/Ml Vial IVP 07/27/25 16:28 2 mg Q3HR PRN Administration Pain 6-8 Cefepime HCl 2 gm/ Sodium 50 mls @ 100 mls/hr 07/22/25 13:43 07/26/25 05:34 Chloride IV 07/29/25 13:42 100 mls/hr Q8HR JUAN JOSE Administration Vancomycin HCl/Dextrose 250 mls @ 120 mls/hr 07/25/25 10:00 07/25/25 22:35 Vancomycin/D5w 1,250 Mg Ivpb IV 08/01/25 09:59 120 mls/hr BID@1000,2200 JUAN JOSE Administration Protocol Lidocaine 2 patch 07/24/25 13:34 07/25/25 16:51 Lidocaine 5% 1 Patch TOP 08/23/25 13:33 2 patch UD PRN Administration PAIN Protocol Melatonin 6 mg 07/25/25 21:00 07/25/25 21:31 Melatonin 3 Mg Tablet PO 08/24/25 20:59 6 mg HS JUAN JOSE Administration Methylprednisolone Sodium Succinate 40 mg 07/25/25 09:00 07/25/25 09:38 Methylprednisolone Sod Succ 40 Mg/Ml Vial IVP 08/01/25 08:59 40 mg QDAY JUAN JOSE Administration Multivitamins/Minerals 15 ml 07/24/25 09:00 07/25/25 09:38 Multivitamin 15 Ml Udc PO 08/23/25 08:59 15 ml QDAY JUAN JOSE Administration Ondansetron HCl 8 mg 07/22/25 13:44 Ondansetron Inj 2 Mg/Ml Inj 2 Ml IVP 08/21/25 13:43 Q6H PRN NAUSEA OR VOMITING Protocol Oxycodone/Acetaminophen 1 tab 07/25/25 17:00 07/26/25 01:03 Oxycodone/Apap 5/325 Tablet PO 07/30/25 16:59 1 tab Q8H JUAN JOSE Administration Pharmacy Consult 1 each 07/23/25 06:17 Vancomycin Pharmacy To Dose 1 Each Each IV 08/21/25 13:44 QDAY PRN PROTOCOL Quetiapine Fumarate 50 mg 07/25/25 09:00 07/25/25 09:39 Quetiapine Fumarate 25 Mg Tablet PO 08/24/25 08:59 50 mg QDAY JUAN JOSE Administration Sennosides 2 tab 07/22/25 13:59 Senna Tablet PO 08/21/25 13:58 QDAY PRN CONSTIPATION Protocol Plan Mr. Garcia 49M with metastatic adenocarcinoma (mets in lung, liver and bone) on 3-4 L oxygen at home, who was transferred to [facility] for 1 month for workup of suspected small bowel cancer now on FOLFOX plus cetuximab plus encorafenib (last chemo was 3 weeks ago at [facility]) (followed by Dr. Cody and Dr. Schwartz), normocytic anemia, and bilateral malignant pleural effusions with pleur vac tubes bilaterally (per she drains one side every other day) he has had significant weight loss (BMI 18) who presented with increased work of breathing found to have PNA on Bipap PRN, and lasix qd. Pt now dnr/dni managing ARDS, pna, and pain. Acute hypoxic respiratory failure 2/2 Moderate ARDS Stage IV Metastatic Adenocarcinoma- poor prognosis bilateral malignant pleural effusions with pleurx tubes hospital acquired bibasilar pneumonia Metastatic pulmonary nodules Severe bilateral atelectasis follows with Dr. Cody and Lana. reports draining 1 lung every other day, states that left lung is due to be drained 07/22, on Chemo at [facility] (FOLFOX plus cetuximab plus encorafenib) CXR and CT chest with bilateral effusions and pleurx tubes in appropriate positions, bibasilar pleural effusion Tx - drain lungs when symptomatic - s/p L lung drained overnight with 100cc output 07/22 - dexamethasone 10 mg IVP x1 - Ceftriaxone 2 mg x1 (07/22) - Azithromycin 500mg x1 (07/22) - Vancomycin (pharmacy to dose) (07/22- - Cefepime 2gm q8hr (07/22- - Lasix 40 mg IV qd - Consult Oncology, Dr Schwartz for prognosis and goals of care discussion and possible hospice - methylprednisolone 40 mg IV qd (07/25- - Pain Meds: 07/24: d/c Methadone 25mg q8hr scheduled Dilaudid 2mg IV q3hr prn fentanyl 25mcg q4hr prn lidocaine patches - Nausea Meds: Zofran 8mg q6hr PRN - highflow NC PRN - Daily CXR to monitor ards, - avoid albuterol given tachycardia. Anxiety - seroquel 50 qd, tolerating well, anxiety better controlled Sinus Tachycardia - less severe today CTM given pt on some qt prolonging agents could be 2/2 poor lung reserves vs anemia, vs pain. EKG with sinus tachycardia Normocytic anemia (hgb 8) requiring multiple blood transfusions on prior admissions 2/2 gi losses - type and screen - monitor BM for viv blood - transfuse if hgb <7 Anorexia Malnutrition 2/2 malignancy Hypoalbuminemia BMI 18 - Dietition referred, appreciate recs - regular diet, mechanical dysphagia 2. - ensure high plus max with meals - po liquid multivitamin qd Coagulopathy 2/2 malignancy - PT elevated - On SCDs for vte ppx Chronic elevated alk phos (893) mets to the liver - CTM Back wound -wound care consulted - continue doxycycline 100 mg BID Dispo: admit to tele, continues on high flow nc weaning slowly, and iv abx, dnr,dni Diet: regular, mechanical dysphagia 2 Bowel Reg: senna 2 tab qd prn VTE ppx: hold SCDs GI ppx: Protonix 40 IV qd Code status: FULL Plan discussed with Dr. Ribera, and Dr. 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 Overnight, patient respiratory status worsened and was pending intubation however patient and family opted for DNR/DNI. Will continue conservative management with IV antibiotic therapy, steroid therapy and continue to monitor patient. Updated patient and family that prognosis extremely guarded and if he does not improve then we will proceed with comfort focused therapy. Patient and family verbalized understanding and appreciation for the medical team.
[2025-07-26] MEDS: DOXYCYCLINE 100 MG TABLET PO ×2 (08:15→21:58)
[2025-07-26] MEDS: DOCUSATE SOD 100 MG CAPSULE PO (08:16)
[2025-07-26] MEDS: MULTIVITAMIN 15 ML UDC PO (08:17)
[2025-07-26] MEDS: FUROSEMIDE INJ 10 MG/ML 4ML VIAL 40 MG IVP (08:17)
[2025-07-26] MEDS: ONDANSETRON INJ 2 MG/ML INJ 2 ML 8 MG IVP (08:25)
[2025-07-26 09:42] LABS: Vancomycin,Trough 22.2 mcg/mL (5.0-10.0)
[2025-07-26] MEDS: HYDROmorphone INJ 2 MG/ML VIAL IVP ×3 (10:10→22:11)
[2025-07-26] MEDS: VANCOMYCIN/NS 1 GM IVPB 200 ML IV ×2 (11:07→22:01)
--- NOTE | 2025-07-26 21:00 | PC.NURSE ---
lidocaine patch 1 on left shoulder and another 1 on right shoulder- both removed.
--- NOTE | 2025-07-26 21:25 | PC.NURSE ---
called Jailene- no answer, called daughter Rosana cp#[phone]- Adviced to bring chest drain bottle with tubing tonight so we can drain left chest. Pt having pain more on left chest and pt requesting to drain it.
[2025-07-26] MEDS: MELATONIN 3 MG TABLET 6 MG PO (21:58)
--- NOTE | 2025-07-26 23:11 | PC.NURSE ---
called Jailene cp#[phone] to follow up if is coming tonight to bring ball with drain tube- Per will bring tomorrow morning as she does not have car tonight. Adviced to come parking meter attendant tomorrow.
[2025-07-27] VITALS (13 sets, daily range): BP systolic 114–130; BP diastolic 71–86; PULSE 90–148; RESP 10–28; TEMP 35.9–36.5; O2SAT 90–95; BMI 18.2
[2025-07-27] MEDS: HYDROmorphone INJ 2 MG/ML VIAL IVP ×5 (04:34→20:12)
[2025-07-27 05:20] LABS: Basophils # (Auto) 0.0 Thou/mm3 (0.0-0.2); Basophils % (Auto) 0 % (0-2.5); Eosinophils # (Auto) 0.0 Thou/mm3 (0.0-0.5); Eosinophils % (Auto) 0 % (0-10); Hematocrit 27.8 % (41.0-53.0); Immature Granulocytes Auto 0.12 Thou/mm3 (0.00-0.00); Lymphocytes # (Auto) 1.6 Thou/mm3 (1.0-4.8); Lymphocytes % (Auto) 12 % (10-50); Mean Corpuscular HGB Conc 30.9 g/dl (31.0-37.0); Mean Corpuscular Hemoglobin 30.4 pg (25.0-35.0); Mean Corpuscular Volume 98 fL (80-100); Monocytes # (Auto) 1.4 Thou/mm3 (0.0-0.8); Monocytes % (Auto) 11 % (0-12); Neutrophils # (Auto) 9.7 Thou/mm3 (1.8-7.7); Neutrophils % (Auto) 76 % (37-80); Nucleated Red Blood Cell # 0.00 Thou/mm3 (0.00-0.00); Nucleated Red Blood Cell % 0 /100 WBC (0); Platelet Count 335 Thou/mm3 (140-440); RDW Standard Deviation 53.9 fL (35.1-43.9); Red Blood Count 2.83 Miln/mm3 (4.50-5.90); White Blood Count 12.8 Thou/mm3 (3.8-10.6)
[2025-07-27 05:32] LABS: Hemoglobin 8.6 g/dL (13.5-16.0)
[2025-07-27] MEDS: CEFEPIME INJ 2 GM in SODIUM CHLORIDE 0.9% (Popper) 50 ML IV ×3 (05:48→21:04)
[2025-07-27 05:57] LABS: Alanine Aminotransferase 56 U/L (10-49); Albumin, Serum 3.0 gm/dL (3.5-5.0); Albumin/Globulin Ratio 1.8 (1.2-2.2); Alkaline Phosphatase 822 U/L (46-116); Anion Gap 6 (7-16); Aspartate Amino Transferase 68 U/L (0-34); BUN/Creatinine Ratio 33 Ratio (12-20); Bilirubin,Total 0.2 mg/dL (0.3-1.2); Blood Urea Nitrogen 13 mg/dL (9-23); Calcium 9.0 mg/dL (8.3-10.6); Calcium (Corrected) 9.8 mg/dL (8.5-10.1); Carbon Dioxide 35.9 mMol/L (20.0-31.0); Chloride 97 mMol/L (98-107); Creatinine (Component) 0.4 mg/dL (0.6-1.3); Estimated Creatinine Clearance 170.7 mL/min (>60); Globulin 1.7 gm/dL (2.3-3.5); Glucose 95 mg/dL (74-106); Osmolality,Calculated 277 (275-295); Potassium 4.0 mMol/L (3.4-5.1); Sodium 139 mMol/L (136-145); Total Protein 4.7 gm/dL (5.7-8.2); eGFR > 60 See Note
--- NOTE | 2025-07-27 07:38 | PC.NURSE ---
pt. family made aware that they are NOT TO DRAIN pt. plueral tubes. This is a infection risk and the doctors must to it ONLY. family agrees.
[2025-07-27] MEDS: DOCUSATE SOD 100 MG CAPSULE PO (08:56)
[2025-07-27] MEDS: DOXYCYCLINE 100 MG TABLET PO ×2 (08:56→20:12)
[2025-07-27] MEDS: MULTIVITAMIN 15 ML UDC PO (08:57)
[2025-07-27] MEDS: FUROSEMIDE INJ 10 MG/ML 4ML VIAL 40 MG IVP (08:57)
--- NOTE | 2025-07-27 09:43 | PC.SS ---
SS follow up note; Patient is on 25L of 02, weaning down. Discharge plan pending at the time. Family wants patient to discharge home however 02 needs to be stable.
[2025-07-27] MEDS: ONDANSETRON INJ 2 MG/ML INJ 2 ML 8 MG IVP (10:23)
[2025-07-27] MEDS: VANCOMYCIN/NS 1 GM IVPB 200 ML IV ×2 (10:23→21:55)
[2025-07-27] MEDS: LIDOCAINE 5% 1 PATCH 2 PATCH TOP (10:23)
--- NOTE | 2025-07-27 13:04 | XR_ITS ---
Examination: AP chest single view Technique one AP portable upright chest single view Date and time: July 27, 2025 1310 hours, comparison January 21, 2025 INDICATIONS: Shortness of breath today FINDINGS: Moderate heart failure Mild to moderate enlargement cardiac contour prominent vascular congestion and perihilar edema Extensive superimposed bilateral pneumonia Bilateral pleural fluid is although bilateral Pleurx catheters are noted Right internal jugular Port-A-Cath tip right atrium Extensive osteoblastic metastatic disease IMPRESSION: Moderate heart failure Extensive bilateral pneumonia
--- NOTE | 2025-07-27 16:37 | PC.NURSE ---
Dr. patrick michelle auto DC'd Dr. Ribera agrees to reorder.
--- NOTE | 2025-07-27 19:46 | PD.RESPRO ---
Documentation for date of: 07/27/25 Subjective Subjective Interval history: Patient examined at bedside. No events overnight, states that his pain is significantly improved and no apparent distress. At bedside he is on 20 L high flow nasal cannula 45% at FiO2 saturating 94%. Tachycardia 100?104, respiratory rate 15. Will plan to transition patient from high flow nasal cannula to oxy mask. Repeat chest x-ray for ARDS and pneumonia. Continue IV methylprednisone 40 mg daily in setting of his ARDS and Vancomycin/cefepime for HAP. Plan to discharge home on hospice when patient baseline. Exam Vital Signs Temp Pulse Resp BP Pulse Ox O2 Del Method O2 Flow Rate 97.0 F 112 H 18 114/71 94 L Oxy Mask 5 07/27/25 16:00 07/27/25 16:00 07/27/25 16:00 07/27/25 16:00 07/27/25 16:00 07/27/25 16:00 07/27/25 16:00 FiO2 40 07/27/25 13:10 Narrative Exam General: Cachectic, comfortable on high flow nasal cannula Neuro: A&O x3, no focal deficits HEENT: Moist mucous membranes, no nasal congestion CV: Tachycardic, regular rhythm, no murmurs Resp: Breathing is less labored. Bilateral pleurevac tubes in place, no bleeding.O n high flow NC @ 45% fio2 GI: Abdomen soft, non-tender, non-distended Extremities: No edema, 2+ pulses, no pitting edema Skin: Warm, dry, wound mid scapula on back , lidocaine patches in place on back and chest prn Psych: less anxious appearing, appropriate responses Objective Labs 07/29/25 04:18 07/29/25 04:18 Labs: Laboratory Results - last 24 hr 07/27/25 04:12 WBC 12.8 H RBC 2.83 L Hgb 8.6 L Hct 27.8 L MCV 98 MCH 30.4 MCHC 30.9 L RDW Std Deviation 53.9 H Plt Count 335 Neut % (Auto) 76 Lymph % (Auto) 12 [place] % (Auto) 11 Eos % (Auto) 0 Baso % (Auto) 0 Neut # (Auto) 9.7 H Lymph # (Auto) 1.6 [place] # (Auto) 1.4 H Eos # (Auto) 0.0 Baso # (Auto) 0.0 Immature Gran # (Auto) 0.12 H Absolute Nucleated RBC 0.00 Immature Gran % 1 H Nucleated RBC % 0 Sodium 139 Potassium 4.0 Chloride 97 L Carbon Dioxide 35.9 H Anion Gap 6 L BUN 13 Creatinine 0.4 L Estim Creat Clear Calc 170.7 eGFR > 60 BUN/Creatinine Ratio 33 H Glucose 95 Calculated Osmolality 277 Calcium 9.0 Corrected Calcium 9.8 Total Bilirubin 0.2 L AST 68 H ALT 56 H Alkaline Phosphatase 822 H Total Protein 4.7 L Albumin 3.0 L Globulin 1.7 L Albumin/Globulin Ratio 1.8 ABG Interpretation ABG results: 07/22/25 07/22/25 07/22/25 09:48 17:57 22:34 ABG pH 7.40 7.43 ABG pCO2 53 H 51 H ABG pO2 81 L 74 L ABG HCO3 33 H 34 H ABG O2 Saturation 97 96 ABG Base Excess 7 H 8 H VBG pH 7.43 VBG pCO2 51 VBG pO2 32 VBG Base Excess 8 H 07/23/25 07/24/25 07/24/25 12:54 07:45 16:12 ABG pH 7.42 7.40 7.41 ABG pCO2 54 H 57 H 57 H ABG pO2 73 L 58 L* 69 L ABG HCO3 35 H 35 H 36 H ABG O2 Saturation 96 90 L 94 ABG Base Excess 9 H 9 H 10 H VBG pH VBG pCO2 VBG pO2 VBG Base Excess 07/25/25 08:20 ABG pH 7.42 ABG pCO2 57 H ABG pO2 79 L ABG HCO3 37 H ABG O2 Saturation 96 ABG Base Excess 11 H VBG pH VBG pCO2 VBG pO2 VBG Base Excess Quality Measures Quality Measures VTE prophylaxis Assessment & Plan Assessment Current Active Medications: Generic Name Dose Route Start Last Admin Trade Name Freq PRN Reason Stop Dose Admin Acetaminophen 650 mg 07/22/25 13:44 Acetaminophen 325 Mg Tablet PO 08/21/25 13:43 Q6H PRN Fever >100.4 and pain 1-4 Docusate Sodium 100 mg 07/23/25 11:45 07/27/25 08:56 Docusate Sod 100 Mg Capsule PO 08/22/25 11:44 100 mg QDAY JUAN JOSE Administration Protocol Doxycycline Hyclate 100 mg 07/23/25 09:00 07/27/25 08:56 Doxycycline 100 Mg Tablet PO 07/30/25 08:59 100 mg BID JUAN JOSE Administration Fentanyl Citrate 25 mcg 07/24/25 18:04 Fentanyl Cit Inj 50 Mcg/Ml Amp 2ml IVP 07/29/25 18:03 On Hold: 07/27/25 16:41 Q4HR PRN Comment: DUPLICATE PAIN SCALE pain 9-10 Furosemide 40 mg 07/23/25 10:30 07/27/25 08:57 Furosemide Inj 10 Mg/Ml 4ml Vial IVP 08/22/25 10:29 40 mg QDAY JUAN JOSE Administration Hydromorphone HCl 2 mg 07/27/25 18:00 Hydromorphone Inj 2 Mg/Ml Vial IVP 08/01/25 17:59 Q3HR PRN Pain 5-10 Cefepime HCl 2 gm/ Sodium 50 mls @ 100 mls/hr 07/22/25 13:43 07/27/25 15:47 Chloride IV 07/29/25 13:42 100 mls/hr Q8HR JUAN JOSE Administration Vancomycin/Sodium Chloride 200 mls @ 120 mls/hr 07/26/25 10:15 07/27/25 10:23 Vancomycin/Ns 1 Gm Ivpb IV 08/02/25 10:14 120 mls/hr BID@1000,2200 JUAN JOSE Administration Lidocaine 2 patch 07/24/25 13:34 07/27/25 10:23 Lidocaine 5% 1 Patch TOP 08/23/25 13:33 2 patch UD PRN Administration PAIN Protocol Melatonin 6 mg 07/25/25 21:00 07/26/25 21:58 Melatonin 3 Mg Tablet PO 08/24/25 20:59 6 mg HS JUAN JOES Administration Methylprednisolone Sodium Succinate 40 mg 07/25/25 09:00 07/27/25 08:57 Methylprednisolone Sod Succ 40 Mg/Ml Vial IVP 08/01/25 08:59 40 mg QDAY JUAN JOSE Administration Multivitamins/Minerals 15 ml 07/24/25 09:00 07/27/25 08:57 Multivitamin 15 Ml Udc PO 08/23/25 08:59 15 ml QDAY JUAN JOSE Administration Ondansetron HCl 8 mg 07/22/25 13:44 07/27/25 10:23 Ondansetron Inj 2 Mg/Ml Inj 2 Ml IVP 08/21/25 13:43 8 mg Q6H PRN Administration NAUSEA OR VOMITING Protocol Oxycodone/Acetaminophen 1 tab 07/25/25 17:00 07/27/25 17:22 Oxycodone/Apap 5/325 Tablet PO 07/30/25 16:59 1 tab Q8H JUAN JOSE Administration Pharmacy Consult 1 each 07/23/25 06:17 Vancomycin Pharmacy To Dose 1 Each Each IV 08/21/25 13:44 QDAY PRN PROTOCOL Quetiapine Fumarate 50 mg 07/25/25 09:00 07/27/25 08:57 Quetiapine Fumarate 25 Mg Tablet PO 08/24/25 08:59 50 mg QDAY JUAN JOSE Administration Sennosides 2 tab 07/22/25 13:59 Senna Tablet PO 08/21/25 13:58 QDAY PRN CONSTIPATION Protocol Plan Mr. Garcia 49M with metastatic adenocarcinoma (mets in lung, liver and bone) on 3-4 L oxygen at home, who was transferred to [facility] for 1 month for workup of suspected small bowel cancer now on FOLFOX plus cetuximab plus encorafenib (last chemo was 3 weeks ago at [facility]) (followed by Dr. Cody and Dr. Schwartz), normocytic anemia, and bilateral malignant pleural effusions with pleur vac tubes bilaterally (per she drains one side every other day) he has had significant weight loss (BMI 18) who presented with increased work of breathing found to have PNA on Bipap PRN, and lasix qd. Pt now dnr/dni managing ARDS, pna, and pain. Acute hypoxic respiratory failure 2/2 Moderate ARDS Stage IV Metastatic Adenocarcinoma- poor prognosis bilateral malignant pleural effusions with pleurx tubes hospital acquired bibasilar pneumonia Metastatic pulmonary nodules Severe bilateral atelectasis follows with Dr. Cody and Lana. reports draining 1 lung every other day, states that left lung is due to be drained 07/22, on Chemo at [facility] (FOLFOX plus cetuximab plus encorafenib) CXR and CT chest with bilateral effusions and pleurx tubes in appropriate positions, bibasilar pleural effusion Tx - drain lungs when symptomatic - s/p L lung drained overnight with 100cc output 07/22 - dexamethasone 10 mg IVP x1 - Ceftriaxone 2 mg x1 (07/22) - Azithromycin 500mg x1 (07/22) - Vancomycin (pharmacy to dose) (07/22- - Cefepime 2gm q8hr (07/22- - Lasix 40 mg IV qd - Consult Oncology, Dr Schwartz for prognosis and goals of care discussion and possible hospice - methylprednisolone 40 mg IV qd (07/25- - Pain Meds: 07/24: d/c Methadone 25mg q8hr scheduled Dilaudid 2mg IV q3hr prn fentanyl 25mcg q4hr prn lidocaine patches - Nausea Meds: Zofran 8mg q6hr PRN - highflow NC PRN - Daily CXR to monitor ards, - avoid albuterol given tachycardia. -continue to wean HFNC and transition to OxyMask with continued weaning for goal to send patient home on hospice Anxiety - seroquel 50 qd, tolerating well, anxiety better controlled Sinus Tachycardia - less severe today CTM given pt on some qt prolonging agents could be 2/2 poor lung reserves vs anemia, vs pain. EKG with sinus tachycardia Normocytic anemia (hgb 8) requiring multiple blood transfusions on prior admissions 2/2 gi losses - type and screen - monitor BM for viv blood - transfuse if hgb <7 Anorexia Malnutrition 2/2 malignancy Hypoalbuminemia BMI 18 - Dietition referred, appreciate recs - regular diet, mechanical dysphagia 2. - ensure high plus max with meals - po liquid multivitamin qd Coagulopathy 2/2 malignancy - PT elevated - On SCDs for vte ppx Chronic elevated alk phos (893) mets to the liver - CTM Back wound -wound care consulted - continue doxycycline 100 mg BID Dispo: admit to tele, continues on high flow nc weaning slowly, and iv abx, dnr,dni Diet: regular, mechanical dysphagia 2 Bowel Reg: senna 2 tab qd prn VTE ppx: hold SCDs GI ppx: Protonix 40 IV qd Code status: DNR The patient's management plan was discussed with my attending physician Dr. Valerio. 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 Overnight, patient respiratory status worsened and was pending intubation however patient and family opted for DNR/DNI. Will continue conservative management with IV antibiotic therapy, steroid therapy and continue to monitor patient. Updated patient and family that prognosis extremely guarded and if he does not improve then we will proceed with comfort focused therapy. Patient and family verbalized understanding and appreciation for the medical team.
[2025-07-27] MEDS: MELATONIN 3 MG TABLET 6 MG PO (20:12)
[2025-07-28] VITALS (14 sets, daily range): BP systolic 118–139; BP diastolic 74–83; PULSE 95–121; RESP 13–28; TEMP 36–36.3; O2SAT 93–100; BMI 18.3
[2025-07-28] MEDS: HYDROmorphone INJ 2 MG/ML VIAL IVP ×5 (02:46→21:32)
[2025-07-28] MEDS: ACETAMINOPHEN 325 MG TABLET 650 MG PO (05:05)
[2025-07-28] MEDS: CEFEPIME INJ 2 GM in SODIUM CHLORIDE 0.9% (Popper) 50 ML IV ×3 (05:05→21:32)
--- NOTE | 2025-07-28 05:29 | PC.NURSE ---
DR. KIRKPATRICK NOTIFIED OF PT'S PAIN ON BACK 08/13 AND PT WANTS DILAUDID AND NOT DUE IN AN HOUR, MD ORDERED TO GIVE TYLENOL ORDERED AND GIVE DILAUDID WHEN DUE. PT INFORMED OF MD ORDER AND AGREED TO TAKE TYLENOL FIRST. CALL LIGHT WITHIN REACH.
[2025-07-28 05:41] LABS: Basophils # (Auto) 0.0 Thou/mm3 (0.0-0.2); Basophils % (Auto) 0 % (0-2.5); Eosinophils # (Auto) 0.0 Thou/mm3 (0.0-0.5); Eosinophils % (Auto) 0 % (0-10); Hematocrit 27.2 % (41.0-53.0); Immature Granulocytes Auto 0.09 Thou/mm3 (0.00-0.00); Lymphocytes # (Auto) 1.4 Thou/mm3 (1.0-4.8); Lymphocytes % (Auto) 8 % (10-50); Mean Corpuscular HGB Conc 30.9 g/dl (31.0-37.0); Mean Corpuscular Hemoglobin 30.5 pg (25.0-35.0); Mean Corpuscular Volume 99 fL (80-100); Monocytes # (Auto) 1.5 Thou/mm3 (0.0-0.8); Monocytes % (Auto) 9 % (0-12); Neutrophils # (Auto) 13.4 Thou/mm3 (1.8-7.7); Neutrophils % (Auto) 82 % (37-80); Nucleated Red Blood Cell # 0.00 Thou/mm3 (0.00-0.00); Nucleated Red Blood Cell % 0 /100 WBC (0); Platelet Count 317 Thou/mm3 (140-440); RDW Standard Deviation 53.9 fL (35.1-43.9); Red Blood Count 2.75 Miln/mm3 (4.50-5.90); White Blood Count 16.4 Thou/mm3 (3.8-10.6)
[2025-07-28 06:00] LABS: Hemoglobin 8.4 g/dL (13.5-16.0)
[2025-07-28 06:04] LABS: Alanine Aminotransferase 45 U/L (10-49); Albumin, Serum 2.9 gm/dL (3.5-5.0); Albumin/Globulin Ratio 1.6 (1.2-2.2); Alkaline Phosphatase 817 U/L (46-116); Anion Gap 7 (7-16); Aspartate Amino Transferase 37 U/L (0-34); BUN/Creatinine Ratio 28 Ratio (12-20); Bilirubin,Total 0.2 mg/dL (0.3-1.2); Blood Urea Nitrogen 11 mg/dL (9-23); Calcium 9.0 mg/dL (8.3-10.6); Calcium (Corrected) 9.9 mg/dL (8.5-10.1); Carbon Dioxide 37.7 mMol/L (20.0-31.0); Chloride 96 mMol/L (98-107); Creatinine (Component) 0.4 mg/dL (0.6-1.3); Estimated Creatinine Clearance 171.1 mL/min (>60); Globulin 1.8 gm/dL (2.3-3.5); Glucose 93 mg/dL (74-106); Osmolality,Calculated 280 (275-295); Potassium 3.4 mMol/L (3.4-5.1); Sodium 141 mMol/L (136-145); Total Protein 4.7 gm/dL (5.7-8.2); eGFR > 60 See Note
--- NOTE | 2025-07-28 07:33 | ESPR_ITS ---
<Statement entered by Shirin Ribera MD - 07/28/25 18:49> Patient examined at bedside, no events overnight. Yesterday attempt to transition to oxymask resulted in hypoxemia, patient was placed back on HFNC for oxygen support. At bedside he is on 27L and 55%FiO2. Dale attempt to wean to 15L to send home on hospice. Continue IV methylprednisone 40 mg daily in setting of his ARDS and Vancomycin/cefepime for HAP. The patient's management plan was discussed with my attending physician Dr. Valerio. Shirin Ribera, PGY-2 Documentation for date of: 07/28/25 Subjective Subjective Interval history: Mr. Garcia 49M with metastatic adenocarcinoma (mets in lung, liver and bone) on 3-4 L oxygen at home, who was transferred to [facility] for 1 month for workup of suspected small bowel cancer now on FOLFOX plus cetuximab plus encorafenib (last chemo was 3 weeks ago at [facility]) (followed by Dr. Cody and Dr. Schwartz), normocytic anemia, and bilateral malignant pleural effusions with pleur vac tubes bilaterally (per she drains one side every other day) he has had significant weight loss (BMI 18) who presented with increased work of breathing found to have PNA on Bipap PRN 07/29/2025: Patient seen and examined at bedside. is present at bedside. pt was weaned off of high flow to oxymask, but due to desaturations was placed back on high flow 22L at 50%. Will continue to wean as pt tolerates. pt will complete pneumonia abx treatment tomorrow. he continues on daily steroids. his pain is well controlled with current regemin and pt likes to use lidocaine patches for his chest and back. if pt can be weaned to 12L oxymask, then can be discharged on hospice. Exam Vital Signs Temp Pulse Resp BP Pulse Ox O2 Del Method O2 Flow Rate 97.0 F 112 H 24 H 139/83 H 96 Oxy Mask 27 07/28/25 04:00 07/28/25 05:56 07/28/25 05:56 07/28/25 04:00 07/28/25 05:56 07/28/25 04:00 07/28/25 05:56 FiO2 55 07/28/25 05:56 Narrative Exam General: Cachectic, comfortable on high flow nasal cannula Neuro: A&O x3, no focal deficits HEENT: Moist mucous membranes, no nasal congestion CV: Tachycardic, regular rhythm, no murmurs Resp: Breathing is less labored. Bilateral pleurevac tubes in place, no bleeding.On high flow NC @ 50% fio2 22L GI: Abdomen soft, non-tender, non-distended Extremities: No edema, 2+ pulses, no pitting edema Skin: Warm, dry, wound mid scapula on back , lidocaine patches in place on back and chest prn Psych: less anxious appearing, appropriate responses Objective Labs 07/29/25 04:18 07/29/25 04:18 Labs: Laboratory Results - last 24 hr 07/28/25 04:41 WBC 16.4 H RBC 2.75 L Hgb 8.4 L Hct 27.2 L MCV 99 MCH 30.5 MCHC 30.9 L RDW Std Deviation 53.9 H Plt Count 317 Neut % (Auto) 82 H Lymph % (Auto) 8 L [place] % (Auto) 9 Eos % (Auto) 0 Baso % (Auto) 0 Neut # (Auto) 13.4 H Lymph # (Auto) 1.4 [place] # (Auto) 1.5 H Eos # (Auto) 0.0 Baso # (Auto) 0.0 Immature Gran # (Auto) 0.09 H Absolute Nucleated RBC 0.00 Immature Gran % 1 H Nucleated RBC % 0 Sodium 141 Potassium 3.4 D Chloride 96 L Carbon Dioxide 37.7 H Anion Gap 7 BUN 11 Creatinine 0.4 L Estim Creat Clear Calc 171.1 eGFR > 60 BUN/Creatinine Ratio 28 H Glucose 93 Calculated Osmolality 280 Calcium 9.0 Corrected Calcium 9.9 Total Bilirubin 0.2 L AST 37 H ALT 45 Alkaline Phosphatase 817 H Total Protein 4.7 L Albumin 2.9 L Globulin 1.8 L Albumin/Globulin Ratio 1.6 ABG Interpretation ABG results: 07/22/25 07/22/25 07/22/25 09:48 17:57 22:34 ABG pH 7.40 7.43 ABG pCO2 53 H 51 H ABG pO2 81 L 74 L ABG HCO3 33 H 34 H ABG O2 Saturation 97 96 ABG Base Excess 7 H 8 H VBG pH 7.43 VBG pCO2 51 VBG pO2 32 VBG Base Excess 8 H 07/23/25 07/24/2507/24/25 12:54 07:45 16:12 ABG pH 7.42 7.40 7.41 ABG pCO2 54 H 57 H 57 H ABG pO2 73 L 58 L* 69 L ABG HCO3 35 H 35 H 36 H ABG O2 Saturation 96 90 L 94 ABG Base Excess 9 H 9 H 10 H VBG pH VBG pCO2 VBG pO2 VBG Base Excess 07/25/25 08:20 ABG pH 7.42 ABG pCO2 57 H ABG pO2 79 L ABG HCO3 37 H ABG O2 Saturation 96 ABG Base Excess 11 H VBG pH VBG pCO2 VBG pO2 VBG Base Excess Quality Measures Quality Measures VTE prophylaxis Assessment & Plan Assessment Current Active Medications: Generic Name Dose Route Start Last Admin Trade Name Freq PRN Reason Stop Dose Admin Acetaminophen 650 mg 07/22/25 13:44 07/28/25 05:05 Acetaminophen 325 Mg Tablet PO 08/21/25 13:43 650 mg Q6H PRN Administration Fever >100.4 and pain 1-4 Docusate Sodium 100 mg 07/23/25 11:45 07/27/25 08:56 Docusate Sod 100 Mg Capsule PO 08/22/25 11:44 100 mg QDAY JUAN JOSE Administration Protocol Doxycycline Hyclate 100 mg 07/23/25 09:00 07/27/25 20:12 Doxycycline 100 Mg Tablet PO 07/30/25 08:59 100 mg BID JUAN JOSE Administration Fentanyl Citrate 25 mcg 07/24/25 18:04 Fentanyl Cit Inj 50 Mcg/Ml Amp 2ml IVP 07/29/25 18:03 On Hold: 07/27/25 16:41 Q4HR PRN Comment: DUPLICATE PAIN SCALE pain 9-10 Furosemide 40 mg 07/23/25 10:30 07/27/25 08:57 Furosemide Inj 10 Mg/Ml 4ml Vial IVP 08/22/25 10:29 40 mg QDAY JUAN JOSE Administration Hydromorphone HCl 2 mg 07/27/25 18:00 07/28/25 05:50 Hydromorphone Inj 2 Mg/Ml Vial IVP 08/01/25 17:59 2 mg Q3HR PRN Administration Pain 5-10 Cefepime HCl 2 gm/ Sodium 50 mls @ 100 mls/hr 07/22/25 13:43 07/28/25 05:55 Chloride IV 07/29/25 13:42 Infused Q8HR JUAN JOSE Infusion Vancomycin/Sodium Chloride 200 mls @ 120 mls/hr 07/26/25 10:15 07/28/25 00:53 Vancomycin/Ns 1 Gm Ivpb IV 08/02/25 10:14 Infused BID@1000,2200 JUAN JOSE Infusion Lidocaine 2 patch 07/24/25 13:34 07/27/25 10:23 Lidocaine 5% 1 Patch TOP 08/23/25 13:33 2 patch UD PRN Administration PAIN Protocol Melatonin 6 mg 07/25/25 21:00 07/27/25 20:12 Melatonin 3 Mg Tablet PO 08/24/25 20:59 6 mg HS JUAN JOSE Administration Methylprednisolone Sodium Succinate 40 mg 07/25/25 09:00 07/27/25 08:57 Methylprednisolone Sod Succ 40 Mg/Ml Vial IVP 08/01/25 08:59 40 mg QDAY JUAN JOSE Administration Multivitamins/Minerals 15 ml 07/24/25 09:00 07/27/25 08:57 Multivitamin 15 Ml Udc PO 08/23/25 08:59 15 ml QDAY JUAN JOSE Administration Ondansetron HCl 8 mg 07/22/25 13:44 07/27/25 10:23 Ondansetron Inj 2 Mg/Ml Inj 2 Ml IVP 08/21/25 13:43 8 mg Q6H PRN Administration NAUSEA OR VOMITING Protocol Oxycodone/Acetaminophen 1 tab 07/25/25 17:00 07/28/25 00:50 Oxycodone/Apap 5/325 Tablet PO 07/30/25 16:59 1 tab Q8H JUAN JOSE Administration Pharmacy Consult 1 each 07/23/25 06:17 Vancomycin Pharmacy To Dose 1 Each Each IV 08/21/25 13:44 QDAY PRN PROTOCOL Potassium Chloride 40 meq 07/28/25 07:30 Potassium Chloride 20 Meq Tabcr PO 07/28/25 07:31 X1 ONE Quetiapine Fumarate 50 mg 07/25/25 09:00 07/27/25 08:57 Quetiapine Fumarate 25 Mg Tablet PO 08/24/25 08:59 50 mg QDAY JUAN JOSE Administration Sennosides 2 tab 07/22/25 13:59 07/28/25 05:50 Senna Tablet PO 08/21/25 13:58 2 tab QDAY PRN Administration CONSTIPATION Protocol Plan Mr. Lopezalvarado 49M with metastatic adenocarcinoma (mets in lung, liver and bone) on 3-4 L oxygen at home, who was transferred to [facility] for 1 month for workup of suspected small bowel cancer now on FOLFOX plus cetuximab plus encorafenib (last chemo was 3 weeks ago at [facility]) (followed by Dr. Cody and Dr. Schwartz), normocytic anemia, and bilateral malignant pleural effusions with pleur vac tubes bilaterally (per she drains one side every other day) he has had significant weight loss (BMI 18) who presented with increased work of breathing found to have PNA on high flow nc,weaning as tolerated, and lasix qd. Pt now dnr/dni managing ARDS, pna, and pain. Acute hypoxic respiratory failure 2/2 Moderate ARDS Stage IV Metastatic Adenocarcinoma- poor prognosis bilateral malignant pleural effusions with pleurx tubes hospital acquired bibasilar pneumonia Metastatic pulmonary nodules Severe bilateral atelectasis follows with Dr. Cody and Lana. reports draining 1 lung every other day at home on Chemo at [facility] (FOLFOX plus cetuximab plus encorafenib) CXR and CT chest with bilateral effusions and pleurx tubes in appropriate positions, bibasilar pleural effusion Tx - drain lungs when symptomatic - Ceftriaxone 2 mg x1 (07/22) - Azithromycin 500mg x1 (07/22) - Vancomycin (pharmacy to dose) (07/22- ) last day 07/29 - Cefepime 2gm q8hr (07/22- ) last day 07/29 - Lasix 40 mg IV qd - Consult Oncology, Dr Schwartz for prognosis and goals of care discussion and possible hospice - methylprednisolone 40 mg IV qd (07/25- - Pain Meds: 07/24: d/c Methadone 25mg q8hr scheduled Dilaudid 2mg IV q3hr prn lidocaine patches 5% prn - Nausea Meds: Zofran 8mg q6hr PRN - highflow NC PRN, wean as appropriate - Daily CXR to monitor ards, - avoid albuterol given tachycardia. -continue to wean HFNC and transition to OxyMask with continued weaning for goal 12L in order to send patient home on hospice Anxiety - seroquel 50 qd, tolerating well, anxiety better controlled Sinus Tachycardia - less severe CTM given pt on some qt prolonging agents could be 2/2 poor lung reserves vs anemia, vs pain. EKG with sinus tachycardia Normocytic anemia (hgb 8)- stable requiring multiple blood transfusions on prior admissions 2/2 gi losses - type and screen - monitor BM for viv blood - transfuse if hgb <7 Anorexia Malnutrition 2/2 malignancy Hypoalbuminemia BMI 18 - Dietition referred, appreciate recs - regular diet, mechanical dysphagia 2. - ensure high plus max with meals - po liquid multivitamin qd Coagulopathy 2/2 malignancy - PT elevated - On SCDs for vte ppx Chronic elevated alk phos (893) mets to the liver - CTM Back wound -wound care consulted - continue doxycycline 100 mg BID Dispo: admit to tele, continues on high flow nc weaning slowly, and iv abx, dnr,dni Diet: regular, mechanical dysphagia 2 Bowel Reg: senna 2 tab qd prn VTE ppx: hold SCDs GI ppx: Protonix 40 IV qd Code status: DNR Plan discussed with Dr. Ribera, and Dr. 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 Overnight, patient respiratory status worsened and was pending intubation however patient and family opted for DNR/DNI. Will continue conservative management with IV antibiotic therapy, steroid therapy and continue to monitor patient. Updated patient and family that prognosis extremely guarded and if he does not improve then we will proceed with comfort focused therapy. Patient and family verbalized understanding and appreciation for the medical team.
[2025-07-28] MEDS: DOCUSATE SOD 100 MG CAPSULE PO (08:13)
[2025-07-28] MEDS: DOXYCYCLINE 100 MG TABLET PO ×2 (08:14→21:32)
[2025-07-28] MEDS: FUROSEMIDE INJ 10 MG/ML 4ML VIAL 40 MG IVP (08:29)
[2025-07-28 09:56] LABS: Vancomycin,Random 22.7 mcg/mL
--- NOTE | 2025-07-28 10:54 | PC.CC ---
1054-Per Dr. Presley, pt is currently on 27L High Flow. If pt gets on 12L or less he can go on hospice care. Attending will consult with RT. Pt is not ready to go home at this time.
[2025-07-28] MEDS: LACTULOSE SYRUP 20 GM/30 ML UDC PO (18:15)
[2025-07-28] MEDS: MELATONIN 3 MG TABLET 6 MG PO (21:32)
[2025-07-28] MEDS: ONDANSETRON INJ 2 MG/ML INJ 2 ML 8 MG IVP (23:10)
[2025-07-29] VITALS (14 sets, daily range): BP systolic 115–133; BP diastolic 71–84; PULSE 61–121; RESP 13–32; TEMP 36.1–36.8; O2SAT 94–98; BMI 18.3
[2025-07-29] MEDS: HYDROmorphone INJ 2 MG/ML VIAL IVP ×7 (01:43→23:45)
[2025-07-29 05:29] LABS: Basophils # (Auto) 0.0 Thou/mm3 (0.0-0.2); Basophils % (Auto) 0 % (0-2.5); Eosinophils # (Auto) 0.1 Thou/mm3 (0.0-0.5); Eosinophils % (Auto) 0 % (0-10); Hematocrit 26.7 % (41.0-53.0); Immature Granulocytes Auto 0.09 Thou/mm3 (0.00-0.00); Lymphocytes # (Auto) 1.2 Thou/mm3 (1.0-4.8); Lymphocytes % (Auto) 9 % (10-50); Mean Corpuscular HGB Conc 30.7 g/dl (31.0-37.0); Mean Corpuscular Hemoglobin 30.4 pg (25.0-35.0); Mean Corpuscular Volume 99 fL (80-100); Monocytes # (Auto) 1.2 Thou/mm3 (0.0-0.8); Monocytes % (Auto) 9 % (0-12); Neutrophils # (Auto) 11.2 Thou/mm3 (1.8-7.7); Neutrophils % (Auto) 82 % (37-80); Nucleated Red Blood Cell # 0.00 Thou/mm3 (0.00-0.00); Nucleated Red Blood Cell % 0 /100 WBC (0); Platelet Count 310 Thou/mm3 (140-440); RDW Standard Deviation 53.6 fL (35.1-43.9); Red Blood Count 2.70 Miln/mm3 (4.50-5.90); White Blood Count 13.7 Thou/mm3 (3.8-10.6)
[2025-07-29] MEDS: CEFEPIME INJ 2 GM in SODIUM CHLORIDE 0.9% (Popper) 50 ML IV (05:36)
[2025-07-29 05:44] LABS: Hemoglobin 8.2 g/dL (13.5-16.0)
[2025-07-29 05:56] LABS: Alanine Aminotransferase 34 U/L (10-49); Albumin, Serum 3.0 gm/dL (3.5-5.0); Albumin/Globulin Ratio 1.9 (1.2-2.2); Alkaline Phosphatase 799 U/L (46-116); Anion Gap 8 (7-16); Aspartate Amino Transferase 32 U/L (0-34); BUN/Creatinine Ratio 20 Ratio (12-20); Bilirubin,Total 0.2 mg/dL (0.3-1.2); Blood Urea Nitrogen 8 mg/dL (9-23); Calcium 8.5 mg/dL (8.3-10.6); Calcium (Corrected) 9.3 mg/dL (8.5-10.1); Carbon Dioxide 36.6 mMol/L (20.0-31.0); Chloride 96 mMol/L (98-107); Creatinine (Component) 0.4 mg/dL (0.6-1.3); Estimated Creatinine Clearance 171.1 mL/min (>60); Globulin 1.6 gm/dL (2.3-3.5); Glucose 99 mg/dL (74-106); Magnesium 1.2 mg/dL (1.6-2.6); Osmolality,Calculated 279 (275-295); Phosphorous 3.5 mg/dL (2.4-5.1); Potassium 3.4 mMol/L (3.4-5.1); Sodium 141 mMol/L (136-145); Total Protein 4.6 gm/dL (5.7-8.2); eGFR > 60 See Note
--- NOTE | 2025-07-29 07:42 | PD.RESPRO ---
Documentation for date of: 07/29/25 Subjective Subjective Interval history: Mr. Garcia 49M with metastatic adenocarcinoma (mets in lung, liver and bone) on 3-4 L oxygen at home, who was transferred to [facility] for 1 month for workup of suspected small bowel cancer now on FOLFOX plus cetuximab plus encorafenib (last chemo was 3 weeks ago at [facility]) (followed by Dr. Cody and Dr. Schwartz), normocytic anemia, and bilateral malignant pleural effusions with pleur vac tubes bilaterally (per she drains one side every other day) he has had significant weight loss (BMI 18) who presented with increased work of breathing found to have PNA on Bipap PRN 07/29/2025: Patient seen and examined at bedside. is present at bedside. pt was weaned off of high flow to oxymask, but due to desaturations was placed back on high flow 22L at 50%. Will continue to wean as pt tolerates. pt will complete pneumonia abx treatment tomorrow. he continues on daily steroids. his pain is well controlled with current regemin and pt likes to use lidocaine patches for his chest and back. if pt can be weaned to 12L oxymask, then can be discharged on hospice. 07/30/2025: Patient seen and examined at bedside. overnight pt reported that he had increased shorntess of breath, and so high flow was uptitrated. pt continues on high flow 25L at 55%, medical team is concerned that pt may be unable to wean pt off high flow to oxymask, given his increased oxygen demands. he continues on steroids and iv abx, and iv lasix qd. increased pt scheduled pain medications with percocet to 2 tabs q8hr and dilaudid prn. Exam Vital Signs Temp Pulse Resp BP Pulse Ox O2 Del Method O2 Flow Rate 96.9 F 108 H 20 125/77 98 High Flow Nasal Cannula 30 07/29/25 04:00 07/29/25 06:35 07/29/25 06:35 07/29/25 04:00 07/29/25 06:35 07/28/25 20:00 07/29/25 06:34 FiO2 70 07/29/25 06:34 Narrative Exam General: Cachectic, on high flow nasal cannula Neuro: A&O x3, no focal deficits HEENT: Moist mucous membranes, no nasal congestion CV: Tachycardic, regular rhythm, no murmurs Resp: decreased breath sounds, bilaterall bases . Bilateral pleurevac tubes in place, no bleeding.On high flow NC @ 55% fio2 25L GI: Abdomen soft, non-tender, non-distended Extremities: No edema, 2+ pulses, no pitting edema Skin: Warm, dry, wound mid scapula on back , lidocaine patches in place on back and chest prn Psych: less anxious appearing, appropriate responses Objective Labs 07/29/25 04:18 07/29/25 04:18 Labs: Laboratory Results - last 24 hr 07/28/25 07/29/25 08:40 04:18 WBC 13.7 H RBC 2.70 L Hgb 8.2 L Hct 26.7 L MCV 99 MCH 30.4 MCHC 30.7 L RDW Std Deviation 53.6 H Plt Count 310 Neut % (Auto) 82 H Lymph % (Auto) 9 L [place] % (Auto) 9 Eos % (Auto) 0 Baso % (Auto) 0 Neut # (Auto) 11.2 H Lymph # (Auto) 1.2 [place] # (Auto) 1.2 H Eos # (Auto) 0.1 Baso # (Auto) 0.0 Immature Gran # (Auto) 0.09 H Absolute Nucleated RBC 0.00 Immature Gran % 1 H Nucleated RBC % 0 Sodium 141 Potassium 3.4 Chloride 96 L Carbon Dioxide 36.6 H Anion Gap 8 BUN 8 L Creatinine 0.4 L Estim Creat Clear Calc 171.1 eGFR > 60 BUN/Creatinine Ratio 20 Glucose 99 Calculated Osmolality 279 Calcium 8.5 Corrected Calcium 9.3 Phosphorus 3.5 Magnesium 1.2 L Total Bilirubin 0.2 L AST 32 ALT 34 Alkaline Phosphatase 799 H Total Protein 4.6 L Albumin 3.0 L Globulin 1.6 L Albumin/Globulin Ratio 1.9 Random Vancomycin 22.7 ABG Interpretation ABG results: 07/22/25 07/22/25 07/22/25 09:48 17:57 22:34 ABG pH 7.40 7.43 ABG pCO2 53 H 51 H ABG pO2 81 L 74 L ABG HCO3 33 H 34 H ABG O2 Saturation 97 96 ABG Base Excess 7 H 8 H VBG pH 7.43 VBG pCO2 51 VBG pO2 32 VBG Base Excess 8 H 07/23/25 07/24/25 07/24/25 12:54 07:45 16:12 ABG pH 7.42 7.40 7.41 ABG pCO2 54 H 57 H 57 H ABG pO2 73 L 58 L* 69 L ABG HCO3 35 H 35 H 36 H ABG O2 Saturation 96 90 L 94 ABG Base Excess 9 H 9 H 10 H VBG pH VBG pCO2 VBG pO2 VBG Base Excess 07/25/25 08:20 ABG pH 7.42 ABG pCO2 57 H ABG pO2 79 L ABG HCO3 37 H ABG O2 Saturation 96 ABG Base Excess 11 H VBG pH VBG pCO2 VBG pO2 VBG Base Excess Quality Measures Quality Measures VTE prophylaxis Assessment & Plan Assessment Current Active Medications: Generic Name Dose Route Start Last Admin Trade Name Freq PRN Reason Stop Dose Admin Acetaminophen 650 mg 07/22/25 13:44 07/28/25 05:05 Acetaminophen 325 Mg Tablet PO 08/21/25 13:43 650 mg Q6H PRN Administration Fever >100.4 and pain 1-4 Docusate Sodium 100 mg 07/23/25 11:45 07/28/25 08:13 Docusate Sod 100 Mg Capsule PO 08/22/25 11:44 100 mg QDAY JUAN JOSE Administration Protocol Doxycycline Hyclate 100 mg 07/23/25 09:00 07/28/25 21:32 Doxycycline 100 Mg Tablet PO 07/30/25 08:59 100 mg BID JUAN JOSE Administration Fentanyl Citrate 25 mcg 07/24/25 18:04 Fentanyl Cit Inj 50 Mcg/Ml Amp 2ml IVP 07/29/25 18:03 On Hold: 07/27/25 16:41 Q4HR PRN Comment: DUPLICATE PAIN SCALE pain 9-10 Furosemide 40 mg 07/23/25 10:30 07/28/25 08:29 Furosemide Inj 10 Mg/Ml 4ml Vial IVP 08/22/25 10:29 40 mg QDAY JUAN JOSE Administration Hydromorphone HCl 2 mg 07/27/25 18:00 07/29/25 04:50 Hydromorphone Inj 2 Mg/Ml Vial IVP 08/01/25 17:59 2 mg Q3HR PRN Administration Pain 5-10 Cefepime HCl 2 gm/ Sodium 50 mls @ 100 mls/hr 07/22/25 13:43 07/29/25 05:36 Chloride IV 07/29/25 13:42 100 mls/hr Q8HR JUAN JOSE Administration Vancomycin/Sodium Chloride 750 mg in 150 mls @ 120 mls/hr 07/28/25 22:00 07/28/25 21:33 Vancomycin/Ns 750 Mg Ivpb IV 08/04/25 21:59 Not Given BID@1000,2200 JUAN JOSE Protocol Magnesium Sulfate 4 gm in 50 mls @ 12.5 mls/hr 07/29/25 07:41 Magnesium Sulfate Ivpb IV 07/29/25 11:40 X1 ONE Lactulose 20 gm 07/28/25 18:00 07/28/25 18:15 Lactulose Syrup 20 Gm/30 Ml Udc PO 08/27/25 17:59 20 gm DAILY JUAN JOSE Administration Protocol Lidocaine 2 patch 07/24/25 13:34 07/27/25 10:23 Lidocaine 5% 1 Patch TOP 08/23/25 13:33 2 patch UD PRN Administration PAIN Protocol Melatonin 6 mg 07/25/25 21:00 07/28/25 21:32 Melatonin 3 Mg Tablet PO 08/24/25 20:59 6 mg HS JUAN JSOE Administration Methylprednisolone Sodium Succinate 40 mg 07/25/25 09:00 07/28/25 08:15 Methylprednisolone Sod Succ 40 Mg/Ml Vial IVP 08/01/25 08:59 40 mg QDAY JUAN JOSE Administration Multivitamins/Minerals 15 ml 07/24/25 09:00 07/28/25 08:37 Multivitamin 15 Ml Udc PO 08/23/25 08:59 Not Given QDAY JUAN JOSE Ondansetron HCl 8 mg 07/22/25 13:44 07/28/25 23:10 Ondansetron Inj 2 Mg/Ml Inj 2 Ml IVP 08/21/25 13:43 8 mg Q6H PRN Administration NAUSEA OR VOMITING Protocol Oxycodone/Acetaminophen 1 tab 07/25/25 17:00 07/29/25 01:47 Oxycodone/Apap 5/325 Tablet PO 07/30/25 16:59 Not Given Q8H [facility] Pharmacy Consult 1 each 07/23/25 06:17 Vancomycin Pharmacy To Dose 1 Each Each IV 08/21/25 13:44 QDAY PRN PROTOCOL Potassium Chloride 40 meq 07/29/25 07:41 Potassium Chloride 20 Meq Tabcr PO 07/29/25 07:42 X1 ONE Quetiapine Fumarate 50 mg 07/25/25 09:00 07/28/25 08:13 Quetiapine Fumarate 25 Mg Tablet PO 08/24/25 08:59 50 mg QDAY JUAN JOSE Administration Sennosides 2 tab 07/22/25 13:59 07/28/25 05:50 Senna Tablet PO 08/21/25 13:58 2 tab QDAY PRN Administration CONSTIPATION Protocol Plan Mr. Garcia 49M with metastatic adenocarcinoma (mets in lung, liver and bone) on 3-4 L oxygen at home, who was transferred to [facility] for 1 month for workup of suspected small bowel cancer now on FOLFOX plus cetuximab plus encorafenib (last chemo was 3 weeks ago at [facility]) (followed by Dr. Cody and Dr. Schwartz), normocytic anemia, and bilateral malignant pleural effusions with pleur vac tubes bilaterally (per she drains one side every other day) he has had significant weight loss (BMI 18) who presented with increased work of breathing found to have PNA on high flow nc,not tolerating weaning, and lasix qd. Pt dnr/dni managing ARDS, pna, and pain. pending goals of care discussion with family. Acute hypoxic respiratory failure 2/2 Moderate ARDS Stage IV Metastatic Adenocarcinoma- poor prognosis bilateral malignant pleural effusions with pleurx tubes hospital acquired bibasilar pneumonia Metastatic pulmonary nodules Severe bilateral atelectasis follows with Dr. Cody and Lana. reports draining 1 lung every other day at home on Chemo at [facility] (FOLFOX plus cetuximab plus encorafenib) CXR and CT chest with bilateral effusions and pleurx tubes in appropriate positions, bibasilar pleural effusion Tx - drain lungs when symptomatic - Ceftriaxone 2 mg x1 (07/22) - Azithromycin 500mg x1 (07/22) - Vancomycin (pharmacy to dose) (07/22- ) last day 07/29 - Cefepime 2gm q8hr (07/22- ) last day 07/29 - Lasix 40 mg IV qd - Consult Oncology, Dr Schwartz for prognosis and goals of care discussion and possible hospice - methylprednisolone 40 mg IV qd (07/25- - Pain Meds: 07/24: d/c Methadone 25mg q8hr scheduled percocet 2 tabs q8hr scheduled. Dilaudid 2mg IV q3hr prn lidocaine patches 5% prn - Nausea Meds: Zofran 8mg q6hr PRN - highflow NC PRN, - Daily CXR to monitor ards, - avoid albuterol given tachycardia. - pt continues on high flow, unclear if pt will be able to wean off high flow to oxymask, need to have family meeting to discuss possibility of comfort care measures. Anxiety - seroquel 50 qd, tolerating well, anxiety better controlled Sinus Tachycardia - less severe CTM given pt on some qt prolonging agents could be 2/2 poor lung reserves vs anemia, vs pain. EKG with sinus tachycardia Normocytic anemia (hgb 8)- stable requiring multiple blood transfusions on prior admissions 2/2 gi losses - type and screen - monitor BM for viv blood - transfuse if hgb <7 Anorexia Malnutrition 2/2 malignancy Hypoalbuminemia BMI 18 - Dietition referred, appreciate recs - regular diet, mechanical dysphagia 2. - ensure high plus max with meals - po liquid multivitamin qd Coagulopathy 2/2 malignancy - PT elevated - On SCDs for vte ppx Chronic elevated alk phos (893) mets to the liver - CTM Back wound -wound care consulted - continue doxycycline 100 mg BID Dispo: admit to tele, continues on high flow nc , and iv abx, dnr,dni Diet: regular, mechanical dysphagia 2 Bowel Reg: senna 2 tab qd prn VTE ppx: hold SCDs GI ppx: Protonix 40 IV qd Code status: DNR Plan discussed with Dr Presley, and Dr. 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 Overnight, patient respiratory status worsened and was pending intubation however patient and family opted for DNR/DNI. Will continue conservative management with IV antibiotic therapy, steroid therapy and continue to monitor patient. Updated patient and family that prognosis extremely guarded and if he does not improve then we will proceed with comfort focused therapy. Patient and family verbalized understanding and appreciation for the medical team.
[2025-07-29] MEDS: LIDOCAINE 5% 1 PATCH 2 PATCH TOP (07:46)
--- NOTE | 2025-07-29 07:51 | PC.NURSE ---
pt refusing bed alarm, educated pt on safety
[2025-07-29] MEDS: LACTULOSE SYRUP 20 GM/30 ML UDC PO (08:54)
[2025-07-29] MEDS: Magnesium Sulfate 4 GM Ivpb 4 GM/50 ML BAG IV (08:54)
[2025-07-29] MEDS: MULTIVITAMIN 15 ML UDC PO (08:54)
[2025-07-29] MEDS: DOCUSATE SOD 100 MG CAPSULE PO (08:55)
[2025-07-29] MEDS: DOXYCYCLINE 100 MG TABLET PO ×2 (08:55→20:13)
--- NOTE | 2025-07-29 09:16 | PC.NURSE ---
called pharmacy to verify if vanco should be given troph yesterday was high, per pharmacist dose adjusted ok to administer today
--- NOTE | 2025-07-29 09:49 | XR_ITS ---
Examination: AP chest single view Technique one AP portable upright chest single view Date and time: July 29, 2025, 10:40 AM, comparison 07/27/2025 INDICATIONS: Difficulty breathing this week. FINDINGS: Extensive bilateral lung opacity Stable bilateral pleural disease with bilateral Pleurx catheters Right Port-A-Cath tip right atrium Prominent vascular congestion Osteoblastic metastatic disease IMPRESSION: Extensive bilateral pneumonia ARDS pattern again noted
[2025-07-29] MEDS: VANCOMYCIN/NS 750 MG IVPB 750 MG/150 ML BAG 120 MG IV ×2 (09:59→21:49)
--- NOTE | 2025-07-29 10:28 | PC.SS ---
Rounding: Pt still on high susan O2 at 30L, DC home with Hospice when O2 requirement lower
[2025-07-29] MEDS: MELATONIN 3 MG TABLET 6 MG PO (20:13)
[2025-07-30] VITALS (18 sets, daily range): BP systolic 119–140; BP diastolic 71–82; PULSE 90–121; RESP 15–26; TEMP 36.1–36.8; O2SAT 92–96; BMI 17.9
[2025-07-30] MEDS: HYDROmorphone INJ 2 MG/ML VIAL IVP ×3 (02:43→09:05)
[2025-07-30 05:57] LABS: Basophils # (Auto) 0.0 Thou/mm3 (0.0-0.2); Basophils % (Auto) 0 % (0-2.5); Eosinophils # (Auto) 0.1 Thou/mm3 (0.0-0.5); Eosinophils % (Auto) 1 % (0-10); Hematocrit 27.5 % (41.0-53.0); Immature Granulocytes Auto 0.10 Thou/mm3 (0.00-0.00); Lymphocytes # (Auto) 1.4 Thou/mm3 (1.0-4.8); Lymphocytes % (Auto) 9 % (10-50); Mean Corpuscular HGB Conc 30.9 g/dl (31.0-37.0); Mean Corpuscular Hemoglobin 30.6 pg (25.0-35.0); Mean Corpuscular Volume 99 fL (80-100); Monocytes # (Auto) 1.3 Thou/mm3 (0.0-0.8); Monocytes % (Auto) 8 % (0-12); Neutrophils # (Auto) 13.3 Thou/mm3 (1.8-7.7); Neutrophils % (Auto) 82 % (37-80); Nucleated Red Blood Cell # 0.00 Thou/mm3 (0.00-0.00); Nucleated Red Blood Cell % 0 /100 WBC (0); Platelet Count 338 Thou/mm3 (140-440); RDW Standard Deviation 53.1 fL (35.1-43.9); Red Blood Count 2.78 Miln/mm3 (4.50-5.90); White Blood Count 16.2 Thou/mm3 (3.8-10.6)
[2025-07-30 06:00] LABS: Hemoglobin 8.5 g/dL (13.5-16.0)
[2025-07-30 06:33] LABS: Alanine Aminotransferase 37 U/L (10-49); Albumin, Serum 3.1 gm/dL (3.5-5.0); Albumin/Globulin Ratio 1.8 (1.2-2.2); Alkaline Phosphatase 837 U/L (46-116); Anion Gap 8 (7-16); Aspartate Amino Transferase 28 U/L (0-34); BUN/Creatinine Ratio 20 Ratio (12-20); Bilirubin,Total 0.3 mg/dL (0.3-1.2); Blood Urea Nitrogen 8 mg/dL (9-23); Calcium 9.4 mg/dL (8.3-10.6); Calcium (Corrected) 10.1 mg/dL (8.5-10.1); Carbon Dioxide 35.9 mMol/L (20.0-31.0); Chloride 96 mMol/L (98-107); Creatinine (Component) 0.4 mg/dL (0.6-1.3); Estimated Creatinine Clearance 167.3 mL/min (>60); Globulin 1.7 gm/dL (2.3-3.5); Glucose 90 mg/dL (74-106); Magnesium 1.7 mg/dL (1.6-2.6); Osmolality,Calculated 277 (275-295); Phosphorous 3.3 mg/dL (2.4-5.1); Potassium 4.2 mMol/L (3.4-5.1); Sodium 140 mMol/L (136-145); Total Protein 4.8 gm/dL (5.7-8.2); eGFR > 60 See Note
--- NOTE | 2025-07-30 07:30 | ESPR_ITS ---
<Statement entered by Shirin Ribera MD - 07/30/25 12:13> Patient examined at bedside. No events overnight reported. High flow nasal cannula 25 L at 50% FiO2. Tachycardic 110, RR 24, saturating 91%. Today patient looks more uncomfortable stating he has reoccurring pain. Per oncology recommendations we will discontinue Percocet and start patient on the fentanyl patch 25 mcg every 3 days with dilaudid pump. Oxygen requirements are not improving. Medical team to have additional goals of care discussion with the family. Obtained oncology medical records from [facility]. Antibiotic course completed for treatment of pneumonia. 1 more day left of IV steroids. The patient's management plan was discussed with my attending physician Dr. Brantley. Shirin Ribera, PGY-2 Documentation for date of: 07/30/25 Subjective Subjective Interval history: Mr. Garcia 49M with metastatic adenocarcinoma (mets in lung, liver and bone) on 3-4 L oxygen at home, who was transferred to [facility] for 1 month for workup of suspected small bowel cancer now on FOLFOX plus cetuximab plus encorafenib (last chemo was 3 weeks ago at [facility]) (followed by Dr. Cody and Dr. Schwartz), normocytic anemia, and bilateral malignant pleural effusions with pleur vac tubes bilaterally (per she drains one side every other day) he has had significant weight loss (BMI 18) who presented with increased work of breathing found to have PNA on Bipap PRN 07/29/2025: Patient seen and examined at bedside. is present at bedside. pt was weaned off of high flow to oxymask, but due to desaturations was placed back on high flow 22L at 50%. Will continue to wean as pt tolerates. pt will complete pneumonia abx treatment tomorrow. he continues on daily steroids. his pain is well controlled with current regemin and pt likes to use lidocaine patches for his chest and back. if pt can be weaned to 12L oxymask, then can be discharged on hospice. 07/30/2025: Patient seen and examined at bedside. overnight pt reported that he had increased shorntess of breath, and so high flow was uptitrated. pt continues on high flow 25L at 55%, medical team is concerned that pt may be unable to wean pt off high flow to oxymask, given his increased oxygen demands. he continues on steroids and iv abx, and iv lasix qd. increased pt scheduled pain medications with percocet to 2 tabs q8hr and dilaudid prn. 07/30/2025: Patient seen and examined at bedside. Pt is present. Pt reports sleeping poorly overnight 2/2 poor pain control and night sweats. He continues on high flow 20L at 50% satting 92-95%. Discussed patient case with Dr. Schwartz who recommends additional goals of care discussion because better managment of his pain may hasten his . Per discussion with pharmacist, plan to d/c percocet q8hr because it is short acting, and pts pain is severe. We will start him on fentanyl patch 25 mcg q3days, and add dilaudid pump. Exam Vital Signs Temp Pulse Resp BP Pulse Ox O2 Del Method O2 Flow Rate 98.1 F 99 15 140/82 H 94 L High Flow Nasal Cannula 07/30/25 04:00 07/30/25 06:41 07/30/25 06:41 07/30/25 04:00 07/30/25 06:41 07/30/25 04:00 07/30/25 06:41 FiO2 50 07/30/25 06:41 Narrative Exam General: Cachectic, on high flow nasal cannula 20 and 50%, reports having pain. Neuro: A&O x3, no focal deficits HEENT: Moist mucous membranes, no nasal congestion CV: Tachycardic, regular rhythm, no murmurs Resp: decreased breath sounds, bilaterall bases . Bilateral pleurevac tubes in place, no bleeding.On high flow NC @ 55% fio2 20L GI: Abdomen soft, non-tender, non-distended Extremities: No edema, 2+ pulses, no pitting edema Skin: Warm, dry, wound mid scapula on back , lidocaine patches in place on back and chest prn , will place fentanyl patch q3d Psych: less anxious appearing, appropriate responses Objective Labs 07/31/25 05:17 07/31/25 05:17 Labs: Laboratory Results - last 24 hr 07/30/25 04:30 WBC 16.2 H RBC 2.78 L Hgb 8.5 L Hct 27.5 L MCV 99 MCH 30.6 MCHC 30.9 L RDW Std Deviation 53.1 H Plt Count 338 Neut % (Auto) 82 H Lymph % (Auto) 9 L [place] % (Auto) 8 Eos % (Auto) 1 Baso % (Auto) 0 Neut # (Auto) 13.3 H Lymph # (Auto) 1.4 [place] # (Auto) 1.3 H Eos # (Auto) 0.1 Baso # (Auto) 0.0 Immature Gran # (Auto) 0.10 H Absolute Nucleated RBC 0.00 Immature Gran % 1 H Nucleated RBC % 0 Sodium 140 Potassium 4.2 D Chloride 96 L Carbon Dioxide 35.9 H Anion Gap 8 BUN 8 L Creatinine 0.4 L Estim Creat Clear Calc 167.3 eGFR > 60 BUN/Creatinine Ratio 20 Glucose 90 Calculated Osmolality 277 Calcium 9.4 Corrected Calcium 10.1 Phosphorus 3.3 Magnesium 1.7 Total Bilirubin 0.3 AST 28 ALT 37 Alkaline Phosphatase 837 H D Total Protein 4.8 L Albumin 3.1 L Globulin 1.7 L Albumin/Globulin Ratio 1.8 ABG Interpretation ABG results: 07/22/25 07/22/25 07/22/25 09:48 17:57 22:34 ABG pH 7.40 7.43 ABG pCO2 53 H 51 H ABG pO2 81 L 74 L ABG HCO3 33 H 34 H ABG O2 Saturation 97 96 ABG Base Excess 7 H 8 H VBG pH 7.43 VBG pCO2 51 VBG pO2 32 VBG Base Excess 8 H 07/23/25 07/24/25 07/24/25 12:54 07:45 16:12 ABG pH 7.42 7.40 7.41 ABG pCO2 54 H 57 H 57 H ABG pO2 73 L 58 L* 69 L ABG HCO3 35 H 35 H 36 H ABG O2 Saturation 96 90 L 94 ABG Base Excess 9 H 9 H 10 H VBG pH VBG pCO2 VBG pO2 VBG Base Excess 07/25/25 08:20 ABG pH 7.42 ABG pCO2 57 H ABG pO2 79 L ABG HCO3 37 H ABG O2 Saturation 96 ABG Base Excess 11 H VBG pH VBG pCO2 VBG pO2 VBG Base Excess Quality Measures Quality Measures VTE prophylaxis Assessment & Plan Assessment Current Active Medications: Generic Name Dose Route Start Last Admin Trade Name Freq PRN Reason Stop Dose Admin Acetaminophen 650 mg 07/22/25 13:44 07/28/25 05:05 Acetaminophen 325 Mg Tablet PO 08/21/25 13:43 650 mg Q6H PRN Administration Fever >100.4 and pain 1-4 Docusate Sodium 100 mg 07/23/25 11:45 07/29/25 08:55 Docusate Sod 100 Mg Capsule PO 08/22/25 11:44 100 mg QDAY JUAN JOSE Administration Protocol Doxycycline Hyclate 100 mg 07/23/25 09:00 07/29/25 20:13 Doxycycline 100 Mg Tablet PO 07/30/25 08:59 100 mg BID JUAN JOSE Administration Furosemide 40 mg 07/23/25 10:30 07/29/25 09:12 Furosemide Inj 10 Mg/Ml 4ml Vial IVP 08/22/25 10:29 Not Given QDAY JUAN JOSE Hydromorphone HCl 2 mg 07/27/25 18:00 07/30/25 05:54 Hydromorphone Inj 2 Mg/Ml Vial IVP 08/01/25 17:59 2 mg Q3HR PRN Administration Pain 5-10 Vancomycin/Sodium Chloride 750 mg in 150 mls @ 120 mls/hr 07/28/25 22:00 07/29/25 21:49 Vancomycin/Ns 750 Mg Ivpb IV 08/04/25 21:59 120 mls/hr BID@1000,2200 JUAN JOSE Administration Protocol Lactulose 20 gm 07/28/25 18:00 07/29/25 08:54 Lactulose Syrup 20 Gm/30 Ml Udc PO 08/27/25 17:59 20 gm DAILY JUAN JOSE Administration Protocol Lidocaine 2 patch 07/24/25 13:34 07/29/25 07:46 Lidocaine 5% 1 Patch TOP 08/23/25 13:33 2 patch UD PRN Administration PAIN Protocol Melatonin 6 mg 07/25/25 21:00 07/29/25 20:13 Melatonin 3 Mg Tablet PO 08/24/25 20:59 6 mg HS JUAN JOSE Administration Methylprednisolone Sodium Succinate 40 mg 07/25/25 09:00 07/29/25 08:54 Methylprednisolone Sod Succ 40 Mg/Ml Vial IVP 08/01/25 08:59 40 mg QDAY JUAN JOSE Administration Multivitamins/Minerals 15 ml 07/24/25 09:00 07/29/25 08:54 Multivitamin 15 Ml Udc PO 08/23/25 08:59 15 ml QDAY JUAN JOSE Administration Ondansetron HCl 8 mg 07/22/25 13:44 07/28/25 23:10 Ondansetron Inj 2 Mg/Ml Inj 2 Ml IVP 08/21/25 13:43 8 mg Q6H PRN Administration NAUSEA OR VOMITING Protocol Oxycodone/Acetaminophen 2 tab 07/29/25 18:00 07/30/25 01:39 Oxycodone/Apap 5/325 Tablet PO 08/03/25 17:59 2 tab Q8H JUAN JOSE Administration Pharmacy Consult 1 each 07/23/25 06:17 Vancomycin Pharmacy To Dose 1 Each Each IV 08/21/25 13:44 QDAY PRN PROTOCOL Quetiapine Fumarate 50 mg 07/25/25 09:00 07/29/25 08:55 Quetiapine Fumarate 25 Mg Tablet PO 08/24/25 08:59 50 mg QDAY JUAN JOSE Administration Sennosides 2 tab 07/22/25 13:59 07/28/25 05:50 Senna Tablet PO 08/21/25 13:58 2 tab QDAY PRN Administration CONSTIPATION Protocol Plan Mr. Garcia 49M with metastatic adenocarcinoma (mets in lung, liver and bone) on 3-4 L oxygen at home, who was transferred to [facility] for 1 month for workup of suspected small bowel cancer now on FOLFOX plus cetuximab plus encorafenib (last chemo was 3 weeks ago at [facility]) (followed by Dr. Cody and Dr. Schwartz), normocytic anemia, and bilateral malignant pleural effusions with pleur vac tubes bilaterally (per she drains one side every other day) he has had significant weight loss (BMI 18) who presented with increased work of breathing found to have PNA on high flow nc,not tolerating weaning, and lasix qd. Pt dnr/dni managing ARDS, pna, and pain. pending goals of care discussion with family, comfort vs hospice, but continues to require significant amount of high flow. Dr. schwartz states that better control of his pain may hasten his , and so discussion with family is prudent. Acute hypoxic respiratory failure 2/2 Moderate ARDS Stage IV Metastatic Adenocarcinoma- poor prognosis bilateral malignant pleural effusions with pleurx tubes hospital acquired bibasilar pneumonia Metastatic pulmonary nodules Severe bilateral atelectasis follows with Dr. Cody and Lana. reports draining 1 lung every other day at home on Chemo at [facility] (FOLFOX plus cetuximab plus encorafenib) CXR and CT chest with bilateral effusions and pleurx tubes in appropriate positions, bibasilar pleural effusion Tx - drain lungs when symptomatic - Ceftriaxone 2 mg x1 (07/22) - Azithromycin 500mg x1 (07/22) - Vancomycin (pharmacy to dose) (07/22- 07/30) - Cefepime 2gm q8hr (07/22- day 07/29) - Lasix 40 mg IV qd - Consult Oncology, Dr Schwartz for prognosis and goals of care discussion and possible hospice - methylprednisolone 40 mg IV qd (07/25- 07/31) - Pain Meds: 07/24: d/c Methadone 25mg q8hr scheduled 07/30: d/c percocet 2 tabs q8hr scheduled 07/30: d/c Dilaudid 2mg IV q3hr prn 07/30: fentanyl patch 25 mcg 07/30: Dilaudid pump (recommended by Dr. Schwartz) lidocaine patches 5% prn - Nausea Meds: Zofran 8mg q6hr PRN - highflow NC PRN, wean as tolerated - avoid albuterol given tachycardia. - pt continues on high flow, unclear if pt will be able to wean off high flow to oxymask, need to have family meeting to discuss possibility of comfort care measures. - Plan for goals of care, for discussion of comfort vs hospice measures. - follow up with [facility] for records of treatment and diagnosis. Anxiety - seroquel 50 qd, tolerating well, anxiety better controlled Sinus Tachycardia - less severe CTM given pt on some qt prolonging agents could be 2/2 poor lung reserves vs anemia, vs pain. EKG with sinus tachycardia Normocytic anemia (hgb 8)- stable requiring multiple blood transfusions on prior admissions 2/2 gi losses - type and screen - monitor BM for viv blood - transfuse if hgb <7 Anorexia Malnutrition 2/2 malignancy Hypoalbuminemia BMI 18 - Dietition referred, appreciate recs - regular diet, mechanical dysphagia 2. - ensure high plus max with meals - po liquid multivitamin qd Coagulopathy 2/2 malignancy - PT elevated - On SCDs for vte ppx Chronic elevated alk phos (893) mets to the liver - CTM Back wound -wound care consulted - continue doxycycline 100 mg BID Dispo: admit to tele, continues on high flow nc , and iv abx (last day today), tomorrow is last day of steroids , dnr,dni Diet: regular, mechanical dysphagia 2 Bowel Reg: senna 2 tab qd prn VTE ppx: hold SCDs GI ppx: Protonix 40 IV qd Code status: DNR Plan discussed with Dr. Ribera, Dr Presley, and Dr. Karon Lester MD PGY1 Attending Provider Attestation/Addendum IPadmini, , attest that I was physically present for the mclaughlin portions of the service and evaluated the patient with the resident and I reviewed and discussed the case with the resident and agree with the resident's findings and plans of care as documented above Patient seen and evaluated this AM. Patient states he was not able to sleep well overnight due to pain. Patient has been given norco and dilaudid, will need longer acting pain relief. Will start on fentanyl patch of 25mcg q3d. However, discussed case with oncology who will take over pain management and start patient on dilaudid SERVICE ORDER DISPATCHER pump as adjunct. Patient had verbalized that he had been started on a dilaudid SERVICE ORDER DISPATCHER at [facility]. He is currently on 25L/min and Fio2 of 50%. Will decrease flow and slowly titrate O2 as tolerated. states that patient has an appt at the [facility] on the . However, explained that patient will need to be off HFNC. Will also obtain records from [facility].
[2025-07-30] MEDS: FUROSEMIDE INJ 10 MG/ML 4ML VIAL 40 MG IVP (08:43)
[2025-07-30] MEDS: DOCUSATE SOD 100 MG CAPSULE PO (08:45)
[2025-07-30] MEDS: MULTIVITAMIN 15 ML UDC PO (08:45)
[2025-07-30] MEDS: LACTULOSE SYRUP 20 GM/30 ML UDC PO (08:46)
[2025-07-30] MEDS: Magnesium Sulfate 4 GM Ivpb 4 GM/50 ML BAG IV (08:46)
--- NOTE | 2025-07-30 08:55 | PC.SS ---
Rounding: Pt pending Dr. Lana nunez for pain management, pt still on [place] O2. DC plan home with Hospice once O2 requirements have decreased to managable rate
[2025-07-30] MEDS: LIDOCAINE 5% 1 PATCH 2 PATCH TOP (09:05)
[2025-07-30] MEDS: VANCOMYCIN/NS 750 MG IVPB 750 MG/150 ML BAG 120 MG IV (10:19)
[2025-07-30] MEDS: fentaNYL 25 mCg TRANSDERMAL PATCH TOP (12:05)
--- NOTE | 2025-07-30 12:05 | PD.ONCPROG ---
Documentation for date of: 07/30/25 Subjective Subjective Interval history: Patient with stage IV CA with bone involvement experiencing significant pain. Patient who received chemo several weeks ago at [facility] decided to go to hospice upon discharge. Still on high flow O2 of 50% rate 20 L as of this a.m. Was prescribed fentanyl 25 and has been on various oral meds. Exam Vital Signs Temp Pulse Resp BP Pulse Ox O2 Del Method O2 Flow Rate 97.1 F 95 24 H 130/81 96 High Flow Nasal Cannula 25 07/30/25 07:45 07/30/25 08:43 07/30/25 07:45 07/30/25 08:43 07/30/25 07:45 07/30/25 07:45 07/30/25 07:45 FiO2 50 07/30/25 07:45 Objective Objective Narrative Objective Narrative: Appears quite uncomfortable writhing in discomfort during my evaluation of patient today. Labs 07/30/25 04:30 07/30/25 04:30 Labs: Laboratory Results - last 24 hr 07/30/25 04:30 WBC 16.2 H RBC 2.78 L Hgb 8.5 L Hct 27.5 L MCV 99 MCH 30.6 MCHC 30.9 L RDW Std Deviation 53.1 H Plt Count 338 Neut % (Auto) 82 H Lymph % (Auto) 9 L [place] % (Auto) 8 Eos % (Auto) 1 Baso % (Auto) 0 Neut # (Auto) 13.3 H Lymph # (Auto) 1.4 [place] # (Auto) 1.3 H Eos # (Auto) 0.1 Baso # (Auto) 0.0 Immature Gran # (Auto) 0.10 H Absolute Nucleated RBC 0.00 Immature Gran % 1 H Nucleated RBC % 0 Sodium 140 Potassium 4.2 D Chloride 96 L Carbon Dioxide 35.9 H Anion Gap 8 BUN 8 L Creatinine 0.4 L Estim Creat Clear Calc 167.3 eGFR > 60 BUN/Creatinine Ratio 20 Glucose 90 Calculated Osmolality 277 Calcium 9.4 Corrected Calcium 10.1 Phosphorus 3.3 Magnesium 1.7 Total Bilirubin 0.3 AST 28 ALT 37 Alkaline Phosphatase 837 H D Total Protein 4.8 L Albumin 3.1 L Globulin 1.7 L Albumin/Globulin Ratio 1.8 ABG Interpretation ABG results: 07/22/25 07/22/25 07/22/25 09:48 17:57 22:34 ABG pH 7.40 7.43 ABG pCO2 53 H 51 H ABG pO2 81 L 74 L ABG HCO3 33 H 34 H ABG O2 Saturation 97 96 ABG Base Excess 7 H 8 H VBG pH 7.43 VBG pCO2 51 VBG pO2 32 VBG Base Excess 8 H 07/23/25 07/24/25 07/24/25 12:54 07:45 16:12 ABG pH 7.42 7.40 7.41 ABG pCO2 54 H 57 H 57 H ABG pO2 73 L 58 L* 69 L ABG HCO3 35 H 35 H 36 H ABG O2 Saturation 96 90 L 94 ABG Base Excess 9 H 9 H 10 H VBG pH VBG pCO2 VBG pO2 VBG Base Excess 07/25/25 08:20 ABG pH 7.42 ABG pCO2 57 H ABG pO2 79 L ABG HCO3 37 H ABG O2 Saturation 96 ABG Base Excess 11 H VBG pH VBG pCO2 VBG pO2 VBG Base Excess Assessment & Plan A&P Narrative 1. Metastatic adenocarcinoma with significant lung and bone involvement stage IV. Noted to be writhing while evaluating patient today 2. Recently received 2 cycles of chemo as inpatient at [facility]. Wishes now to go home with hospice care, still on high flow O2 50% FiO2 by mask. 3. Agree to receive more aggressive pain management despite the possibly of double effect. Patient has 25 fentanyl pending. Recommend Dcing all oral pain meds and will begin Dilaudid SOFTWARE DEVELOPMENT MANAGER pain pump at varying rates. 4. Please call me for all pain med orders and adjustment. Spoke with Dr. Lester and Dr. Brantley. Time Spent With Patient Time: Total time spent is greater than 50% in coordination of care (as documented) at patient's floor/unit and/or counseling patient:
--- NOTE | 2025-07-30 12:10 | PC.NURSE ---
removed lidocaine patch when fentanyl patch was applied to left upper shoulder.
--- NOTE | 2025-07-30 12:16 | PD.ONCPROG ---
Documentation for date of: 08/01/25 Subjective Subjective Interval history: Patient feels more comfortable getting FUNERAL HOME MANAGER Dilaudid pump. Exam Vital Signs Temp Pulse Resp BP Pulse Ox O2 Del Method O2 Flow Rate 97.7 F 119 H 20 125/71 95 High Flow Nasal Cannula 07/30/25 12:00 07/30/25 12:00 07/30/25 12:00 07/30/25 12:00 07/30/25 12:00 07/30/25 12:00 07/30/25 07:45 FiO2 50 07/30/25 07:45 Narrative Exam Receiving O2 via nasal cannula now appears comfortable. Objective Labs 07/31/25 11:30 07/31/25 11:30 Labs: Laboratory Results - last 24 hr 07/30/25 04:30 WBC 16.2 H RBC 2.78 L Hgb 8.5 L Hct 27.5 L MCV 99 MCH 30.6 MCHC 30.9 L RDW Std Deviation 53.1 H Plt Count 338 Neut % (Auto) 82 H Lymph % (Auto) 9 L [place] % (Auto) 8 Eos % (Auto) 1 Baso % (Auto) 0 Neut # (Auto) 13.3 H Lymph # (Auto) 1.4 [place] # (Auto) 1.3 H Eos # (Auto) 0.1 Baso # (Auto) 0.0 Immature Gran # (Auto) 0.10 H Absolute Nucleated RBC 0.00 Immature Gran % 1 H Nucleated RBC % 0 Sodium 140 Potassium 4.2 D Chloride 96 L Carbon Dioxide 35.9 H Anion Gap 8 BUN 8 L Creatinine 0.4 L Estim Creat Clear Calc 167.3 eGFR > 60 BUN/Creatinine Ratio 20 Glucose 90 Calculated Osmolality 277 Calcium 9.4 Corrected Calcium 10.1 Phosphorus 3.3 Magnesium 1.7 Total Bilirubin 0.3 AST 28 ALT 37 Alkaline Phosphatase 837 H D Total Protein 4.8 L Albumin 3.1 L Globulin 1.7 L Albumin/Globulin Ratio 1.8 ABG Interpretation ABG results: 07/22/25 07/22/25 07/22/25 09:48 17:57 22:34 ABG pH 7.40 7.43 ABG pCO2 53 H 51 H ABG pO2 81 L 74 L ABG HCO3 33 H 34 H ABG O2 Saturation 97 96 ABG Base Excess 7 H 8 H VBG pH 7.43 VBG pCO2 51 VBG pO2 32 VBG Base Excess 8 H 07/23/25 07/24/25 07/24/25 12:54 07:45 16:12 ABG pH 7.42 7.40 7.41 ABG pCO2 54 H 57 H 57 H ABG pO2 73 L 58 L* 69 L ABG HCO3 35 H 35 H 36 H ABG O2 Saturation 96 90 L 94 ABG Base Excess 9 H 9 H 10 H VBG pH VBG pCO2 VBG pO2 VBG Base Excess 07/25/25 08:20 ABG pH 7.42 ABG pCO2 57 H ABG pO2 79 L ABG HCO3 37 H ABG O2 Saturation 96 ABG Base Excess 11 H VBG pH VBG pCO2 VBG pO2 VBG Base Excess Assessment & Plan A&P Narrative 1. Metastatic adenocarcinoma with significant lung and bone involvement stage IV. Noted to be writhing while evaluating patient today 2. Recently received 2 cycles of chemo as inpatient at [facility]. Wishes now to go home with hospice care, currently receiving Dilaudid FUNERAL HOME MANAGER pump and getting O2 by nasal cannula. 3. Similar type of care can be offered at home if patient wishes to go home with hospice. Time Spent With Patient Time: Total time spent is greater than 50% in coordination of care (as documented) at patient's floor/unit and/or counseling patient:
[2025-07-30] MEDS: HYDROmorphone 1 MG/ML PCA SYRINGE 30ML PCA ×2 (13:38→20:12)
[2025-07-30] MEDS: MELATONIN 3 MG TABLET 6 MG PO (20:51)
[2025-07-31] VITALS (16 sets, daily range): BP systolic 98–141; BP diastolic 75–97; PULSE 93–154; RESP 13–26; TEMP 35.9–36.5; O2SAT 88–94
[2025-07-31 00:38] LABS: Vancomycin,Trough 10.0 mcg/mL (5.0-10.0)
[2025-07-31] MEDS: HYDROmorphone 1 MG/ML PCA SYRINGE 30ML PCA ×3 (01:12→23:04)
[2025-07-31 06:18] LABS: Basophils # (Auto) 0.0 Thou/mm3 (0.0-0.2); Basophils % (Auto) 0 % (0-2.5); Eosinophils # (Auto) 0.1 Thou/mm3 (0.0-0.5); Eosinophils % (Auto) 1 % (0-10); Hematocrit 29.4 % (41.0-53.0); Hemoglobin 9.0 g/dL (13.5-16.0); Immature Granulocytes Auto 0.13 Thou/mm3 (0.00-0.00); Lymphocytes # (Auto) 1.8 Thou/mm3 (1.0-4.8); Lymphocytes % (Auto) 9 % (10-50); Mean Corpuscular HGB Conc 30.6 g/dl (31.0-37.0); Mean Corpuscular Hemoglobin 30.7 pg (25.0-35.0); Mean Corpuscular Volume 100 fL (80-100); Monocytes # (Auto) 1.5 Thou/mm3 (0.0-0.8); Monocytes % (Auto) 8 % (0-12); Neutrophils # (Auto) 16.5 Thou/mm3 (1.8-7.7); Neutrophils % (Auto) 82 % (37-80); Nucleated Red Blood Cell # 0.00 Thou/mm3 (0.00-0.00); Nucleated Red Blood Cell % 0 /100 WBC (0); Platelet Count 303 Thou/mm3 (140-440); RDW Standard Deviation 53.6 fL (35.1-43.9); Red Blood Count 2.93 Miln/mm3 (4.50-5.90); White Blood Count 20.1 Thou/mm3 (3.8-10.6)
[2025-07-31 06:43] LABS: Alanine Aminotransferase 33 U/L (10-49); Albumin, Serum 3.5 gm/dL (3.5-5.0); Albumin/Globulin Ratio 1.8 (1.2-2.2); Alkaline Phosphatase 900 U/L (46-116); Anion Gap 8 (7-16); Aspartate Amino Transferase 28 U/L (0-34); BUN/Creatinine Ratio 28 Ratio (12-20); Bilirubin,Total 0.2 mg/dL (0.3-1.2); Blood Urea Nitrogen 11 mg/dL (9-23); Calcium 9.3 mg/dL (8.3-10.6); Calcium (Corrected) 9.7 mg/dL (8.5-10.1); Carbon Dioxide 36.1 mMol/L (20.0-31.0); Chloride 95 mMol/L (98-107); Creatinine (Component) 0.4 mg/dL (0.6-1.3); Estimated Creatinine Clearance 170.9 mL/min (>60); Globulin 1.9 gm/dL (2.3-3.5); Glucose 110 mg/dL (74-106); Magnesium 1.8 mg/dL (1.6-2.6); Osmolality,Calculated 277 (275-295); Phosphorous 3.5 mg/dL (2.4-5.1); Potassium 3.8 mMol/L (3.4-5.1); Sodium 139 mMol/L (136-145); Total Protein 5.4 gm/dL (5.7-8.2); eGFR > 60 See Note
[2025-07-31] MEDS: MULTIVITAMIN 15 ML UDC PO (08:51)
[2025-07-31] MEDS: LACTULOSE SYRUP 20 GM/30 ML UDC PO (08:51)
[2025-07-31] MEDS: DOCUSATE SOD 100 MG CAPSULE PO (08:51)
--- NOTE | 2025-07-31 12:03 | PC.SS ---
Addendum entered by MAIRA Hines 07/31/25 16:00: GANTRY CRANE OPERATOR attempted to meet with patient family at bedside to discuss hospice option, family was not at bedside, will follow up tomorrow to discuss hospice and provide contact for [facility]. Original Note: GANTRY CRANE OPERATOR met with patient and patient nurse at bedside. GANTRY CRANE OPERATOR informed patients family that oxygen is high, family stated that they are aware and that they will be speaking to the doctors to determine d/c plan. GANTRY CRANE OPERATOR informed patients family that if she has any questions for the nurse she can notify them and they are able to contact an seasonal greenery bundler. Patient confirmed if she has questions nurse will be available as well as an seasonal greenery bundler.
[2025-07-31] MEDS: RINGERS LACTATED 500 ML 250 ML 999 ML IV (12:17)
[2025-07-31 12:18] LABS: Basophils # (Auto) 0.0 Thou/mm3 (0.0-0.2); Basophils % (Auto) 0 % (0-2.5); Eosinophils # (Auto) 0.2 Thou/mm3 (0.0-0.5); Eosinophils % (Auto) 1 % (0-10); Hematocrit 30.3 % (41.0-53.0); Hemoglobin 9.2 g/dL (13.5-16.0); Immature Granulocytes Auto 0.09 Thou/mm3 (0.00-0.00); Lymphocytes # (Auto) 2.1 Thou/mm3 (1.0-4.8); Lymphocytes % (Auto) 10 % (10-50); Mean Corpuscular HGB Conc 30.4 g/dl (31.0-37.0); Mean Corpuscular Hemoglobin 30.1 pg (25.0-35.0); Mean Corpuscular Volume 99 fL (80-100); Monocytes # (Auto) 1.6 Thou/mm3 (0.0-0.8); Monocytes % (Auto) 7 % (0-12); Neutrophils # (Auto) 17.2 Thou/mm3 (1.8-7.7); Neutrophils % (Auto) 81 % (37-80); Nucleated Red Blood Cell # 0.00 Thou/mm3 (0.00-0.00); Nucleated Red Blood Cell % 0 /100 WBC (0); Platelet Count 308 Thou/mm3 (140-440); RDW Standard Deviation 54.6 fL (35.1-43.9); Red Blood Count 3.06 Miln/mm3 (4.50-5.90); White Blood Count 21.3 Thou/mm3 (3.8-10.6)
[2025-07-31 12:20] LABS: Alanine Aminotransferase 37 U/L (10-49); Albumin, Serum 3.6 gm/dL (3.5-5.0); Albumin/Globulin Ratio 1.8 (1.2-2.2); Alkaline Phosphatase 930 U/L (46-116); Anion Gap 4 (7-16); Aspartate Amino Transferase 32 U/L (0-34); BUN/Creatinine Ratio 30 Ratio (12-20); Bilirubin,Total 0.2 mg/dL (0.3-1.2); Blood Urea Nitrogen 12 mg/dL (9-23); Calcium 9.2 mg/dL (8.3-10.6); Calcium (Corrected) 9.5 mg/dL (8.5-10.1); Carbon Dioxide 38.1 mMol/L (20.0-31.0); Chloride 95 mMol/L (98-107); Creatinine (Component) 0.4 mg/dL (0.6-1.3); Estimated Creatinine Clearance 170.9 mL/min (>60); Globulin 2.0 gm/dL (2.3-3.5); Glucose 107 mg/dL (74-106); Osmolality,Calculated 273 (275-295); Potassium 3.9 mMol/L (3.4-5.1); Sodium 137 mMol/L (136-145); Total Protein 5.6 gm/dL (5.7-8.2); eGFR > 60 See Note
--- NOTE | 2025-07-31 17:13 | PD.RESPRO ---
Documentation for date of: 07/31/25 Subjective Subjective Interval history: Patient examined at bedside. No events overnight. Daughter stated that this morning he did tolerate breakfast and pain is better controlled. Late morning around 11 AM there was rapid response due to tachycardia heart rate 150. He was saturating at 88% on 20 L 60% FiO2. On exam at bedside patient was arousable but very lethargic and somnolent. Will continue Dilaudid pain pump and fentanyl patch 25 mcg every 3 days. Family was updated about prognosis and about weaning oxygen requirements to transition to more comfort care measures. Family will have discussion with medical team tomorrow afternoon about transitioning from his high flow to nasal cannula. They were made aware that he may pass away overnight or tomorrow while in the hospital. They expressed understanding and stated that decision will be made tomorrow. Exam Vital Signs Temp Pulse Resp BP Pulse Ox O2 Del Method O2 Flow Rate 97.0 F 152 H 24 H 132/96 H 90 L High Flow Nasal Cannula 20 07/31/25 12:00 07/31/25 14:36 07/31/25 14:36 07/31/25 12:00 07/31/25 14:36 07/31/25 12:00 07/31/25 14:36 FiO2 65 07/31/25 14:36 Narrative Exam General: Cachectic, waning orientation, reports having pain. Neuro: A&O x3, no focal deficits HEENT: Moist mucous membranes, no nasal congestion CV: Tachycardic, regular rhythm, no murmurs Resp: decreased breath sounds, bilaterall bases . Bilateral pleurevac tubes in place, no bleeding.On high flow NC @ 25L at 60% FIo2 GI: Abdomen soft, non-tender, non-distended Extremities: No edema, 2+ pulses, no pitting edema Skin: Warm, dry, wound mid scapula on back , lidocaine patches in place on back and chest prn , will place fentanyl patch q3d Psych: appropriate responses Objective Labs 07/31/25 11:30 07/31/25 11:30 Labs: Laboratory Results - last 24 hr 07/30/25 07/31/25 07/31/25 20:51 05:17 11:30 WBC 20.1 H 21.3 H RBC 2.93 L 3.06 L Hgb 9.0 L 9.2 L Hct 29.4 L 30.3 L MCV 100 99 MCH 30.7 30.1 MCHC 30.6 L 30.4 L RDW Std Deviation 53.6 H 54.6 H Plt Count 303 D 308 Neut % (Auto) 82 H 81 H Lymph % (Auto) 9 L 10 [place] % (Auto) 8 7 Eos % (Auto) 1 1 Baso % (Auto) 0 0 Neut # (Auto) 16.5 H 17.2 H Lymph # (Auto) 1.8 2.1 [place] # (Auto) 1.5 H 1.6 H Eos # (Auto) 0.1 0.2 Baso # (Auto) 0.0 0.0 Immature Gran # (Auto) 0.13 H 0.09 H Absolute Nucleated RBC 0.00 0.00 Immature Gran % 1 H 0 Nucleated RBC % 0 0 Sodium 139 137 Potassium 3.8 3.9 Chloride 95 L 95 L Carbon Dioxide 36.1 H 38.1 H Anion Gap 8 4 L BUN 11 12 Creatinine 0.4 L 0.4 L Estim Creat Clear Calc 170.9 170.9 eGFR > 60 > 60 BUN/Creatinine Ratio 28 H 30 H Glucose 110 H 107 H Calculated Osmolality 277 273 L Calcium 9.3 9.2 Corrected Calcium 9.7 9.5 Phosphorus 3.5 Magnesium 1.8 Total Bilirubin 0.2 L 0.2 L AST 28 32 ALT 33 37 Alkaline Phosphatase 900 H D 930 H D Total Protein 5.4 L 5.6 L Albumin 3.5 3.6 Globulin 1.9 L 2.0 L Albumin/Globulin Ratio 1.8 1.8 Vancomycin Trough 10.0 ABG Interpretation ABG results: 07/22/25 07/22/25 07/22/25 09:48 17:57 22:34 ABG pH 7.40 7.43 ABG pCO2 53 H 51 H ABG pO2 81 L 74 L ABG HCO3 33 H 34 H ABG O2 Saturation 97 96 ABG Base Excess 7 H 8 H VBG pH 7.43 VBG pCO2 51 VBG pO2 32 VBG Base Excess 8 H 07/23/25 07/24/25 07/24/25 12:54 07:45 16:12 ABG pH 7.42 7.40 7.41 ABG pCO2 54 H 57 H 57 H ABG pO2 73 L 58 L* 69 L ABG HCO3 35 H 35 H 36 H ABG O2 Saturation 96 90 L 94 ABG Base Excess 9 H 9 H 10 H VBG pH VBG pCO2 VBG pO2 VBG Base Excess 07/25/25 08:20 ABG pH 7.42 ABG pCO2 57 H ABG pO2 79 L ABG HCO3 37 H ABG O2 Saturation 96 ABG Base Excess 11 H VBG pH VBG pCO2 VBG pO2 VBG Base Excess Quality Measures Quality Measures VTE prophylaxis Assessment & Plan Assessment Current Active Medications: Generic Name Dose Route Start Last Admin Trade Name Freq PRN Reason Stop Dose Admin Alprazolam 0.25 mg 07/30/25 17:30 07/31/25 01:49 Alprazolam 0.25 Mg Tablet PO 08/04/25 17:29 0.25 mg BID PRN Administration ANXIETY Docusate Sodium 100 mg 07/23/25 11:45 07/31/25 08:51 Docusate Sod 100 Mg Capsule PO 08/22/25 11:44 100 mg QDAY JUAN JOSE Administration Protocol Fentanyl 25 mcg 07/30/25 10:00 07/30/25 12:05 Fentanyl 25 Mcg Transdermal Patch TOP 08/04/25 09:59 25 mcg Q3D JUAN JOSE Administration Protocol Hydromorphone HCl 2 mg 07/27/25 18:00 07/30/25 09:05 Hydromorphone Inj 2 Mg/Ml Vial IVP 08/01/25 17:59 2 mg On Hold: 07/30/25 12:09 Q3HR PRN Administration Comment: REGISTERED DIETETIC TECHNICIAN ORDERED BY DR. Mercado 5-10 LANA. ANTHONY Hydromorphone HCl 0 mg 07/31/25 06:12 07/31/25 07:30 Hydromorphone 1 Mg/Ml Emergency Department Aide Syringe 30ml REGISTERED DIETETIC TECHNICIAN 08/04/25 12:14 30 mg UD JUAN JOSE Administration Protocol Lactulose 20 gm 07/28/25 18:00 07/31/25 08:51 Lactulose Syrup 20 Gm/30 Ml Udc PO 08/27/25 17:59 20 gm DAILY JUAN JOSE Administration Protocol Lidocaine 2 patch 07/24/25 13:34 07/30/25 09:05 Lidocaine 5% 1 Patch TOP 08/23/25 13:33 2 patch UD PRN Administration PAIN Protocol Melatonin 6 mg 07/25/25 21:00 07/30/25 20:51 Melatonin 3 Mg Tablet PO 08/24/25 20:59 6 mg HS JUAN JOSE Administration Multivitamins/Minerals 15 ml 07/24/25 09:00 07/31/25 08:51 Multivitamin 15 Ml Udc PO 08/23/25 08:59 15 ml QDAY JUAN JOSE Administration Ondansetron HCl 8 mg 07/22/25 13:44 07/28/25 23:10 Ondansetron Inj 2 Mg/Ml Inj 2 Ml IVP 08/21/25 13:43 8 mg Q6H PRN Administration NAUSEA OR VOMITING Protocol Quetiapine Fumarate 50 mg 07/25/25 09:00 07/31/25 08:51 Quetiapine Fumarate 25 Mg Tablet PO 08/24/25 08:59 50 mg QDAY JUAN JOSE Administration Sennosides 2 tab 07/22/25 13:59 07/28/25 05:50 Senna Tablet PO 08/21/25 13:58 2 tab QDAY PRN Administration CONSTIPATION Protocol Plan Mr. Garcia 49M with metastatic adenocarcinoma (mets in lung, liver and bone) on 3-4 L oxygen at home, who was transferred to [facility] for 1 month for workup of suspected small bowel cancer now on FOLFOX plus cetuximab plus encorafenib (last chemo was 3 weeks ago at [facility]) (followed by Dr. Cody and Dr. Schwartz), normocytic anemia, and bilateral malignant pleural effusions with pleur vac tubes bilaterally (per she drains one side every other day) he has had significant weight loss (BMI 18) who presented with increased work of breathing found to have PNA on high flow nc,not tolerating weaning, and lasix qd. Pt dnr/dni managing ARDS, pna, and pain. pending goals of care discussion with family, comfort vs hospice, but continues to require significant amount of high flow. Dr. schwartz states that better control of his pain may hasten his , and so discussion with family is prudent. Acute hypoxic respiratory failure 2/2 Moderate ARDS Stage IV Metastatic Adenocarcinoma- poor prognosis bilateral malignant pleural effusions with pleurx tubes hospital acquired bibasilar pneumonia Metastatic pulmonary nodules Severe bilateral atelectasis follows with Dr. Cody and Lana. reports draining 1 lung every other day at home on Chemo at [facility] (FOLFOX plus cetuximab plus encorafenib) CXR and CT chest with bilateral effusions and pleurx tubes in appropriate positions, bibasilar pleural effusion Tx - drain lungs when symptomatic - Ceftriaxone 2 mg x1 (07/22) - Azithromycin 500mg x1 (07/22) - Vancomycin (pharmacy to dose) (07/22- 07/30) - Cefepime 2gm q8hr (07/22- day 07/29) - Lasix 40 mg IV qd - Consult Oncology, Dr Schwartz for prognosis and goals of care discussion and possible hospice - methylprednisolone 40 mg IV qd (07/25- 07/31) - Pain Meds: 07/24: d/c Methadone 25mg q8hr scheduled 07/30: d/c percocet 2 tabs q8hr scheduled 07/30: d/c Dilaudid 2mg IV q3hr prn 07/30: fentanyl patch 25 mcg 07/30: Dilaudid pump (recommended by Dr. Schwartz) lidocaine patches 5% prn - Nausea Meds: Zofran 8mg q6hr PRN - highflow NC PRN, wean as tolerated - avoid albuterol given tachycardia. - pt continues on high flow, unclear if pt will be able to wean off high flow to oxymask, family meeting tomrrow afternoon for goals of care. - Plan for goals of care, for discussion of comfort vs hospice measures. - follow up with [facility] for records of treatment and diagnosis. Anxiety - seroquel 50 qd, tolerating well, anxiety better controlled Sinus Tachycardia - less severe CTM given pt on some qt prolonging agents could be 2/2 poor lung reserves vs anemia, vs pain. EKG with sinus tachycardia Normocytic anemia (hgb 8)- stable requiring multiple blood transfusions on prior admissions 2/2 gi losses - type and screen - monitor BM for viv blood - transfuse if hgb <7 Anorexia Malnutrition 2/2 malignancy Hypoalbuminemia BMI 18 - Dietition referred, appreciate recs - regular diet, mechanical dysphagia 2. - ensure high plus max with meals - po liquid multivitamin qd Coagulopathy 2/2 malignancy - PT elevated - On SCDs for vte ppx Chronic elevated alk phos (893) mets to the liver - CTM Back wound -wound care consulted - continue doxycycline 100 mg BID Dispo: admit to tele, pain mgmt for met adenocarcinoma Diet: regular, mechanical dysphagia 2 Bowel Reg: senna 2 tab qd prn VTE ppx: hold SCDs GI ppx: Protonix 40 IV qd Code status: DNR Patient's plan of care discussed with Dr. Brantley. Shirin Ribera, PGY2 Attending Provider Attestation/Addendum Padmini Key, DO, attest that I was physically present for the [place] portions of the service and evaluated the patient with the resident and I reviewed and discussed the case with the resident and agree with the resident's findings and plans of care as documented above Patient seen and evaluated this AM. Patient has been tachycardic and requiring increased O2 demands on HFNC. Rapid response was called during which patient's was understanding that patient's overall prognosis is poor. She is agreeable to proceed with comfort measures. However, family wishes to keep him on HFNC at this time until the remaining family members come to bedside tomorrow. They are understanding that increase of pain medications titrated to comfort will depress respiratory status so that patient can pass away comfortably. Patient was able to eat breakfast this morning and was interacting with his grandchildren this morning, but became more lethargic later throughout the day. Case discussed with oncology. Will have family meeting tomorrow.
[2025-08-01] VITALS (12 sets, daily range): BP systolic 101–136; BP diastolic 64–83; PULSE 129–146; RESP 15–30; TEMP -17.7–37.1; O2SAT 87–98
[2025-08-01] MEDS: HYDROmorphone 1 MG/ML PCA SYRINGE 30ML PCA ×3 (07:46→19:34)
[2025-08-01] MEDS: LACTULOSE SYRUP 20 GM/30 ML UDC PO (09:27)
[2025-08-01] MEDS: MULTIVITAMIN 15 ML UDC PO (09:27)
[2025-08-01] MEDS: DOCUSATE SOD 100 MG CAPSULE PO (09:28)
--- NOTE | 2025-08-01 12:50 | ESPR_ITS ---
Documentation for date of: 08/01/25 Subjective Subjective Interval history: Patient examined at bedside.? No events overnight.? Patient is saturating at 84% on high flow nasal cannula 25 L at 70% FiO2.? Heart rate 150, respiratory rate 22 at bedside.?Appears to be using accessory muscles. States that he does not have significant pain. Another goals of care discussion was held this afternoon with family including 2 daughters and mother. After extensive conversation, family decided to pursue full comfort care measures with transition of oxygen requirements to nasal cannula. office services representative was present at that time who assisted the family in acquiring a power transformer assembler for final rights. Nursing staff was notified. Comfort care measures as recommended by Dr. Schwartz. Exam Vital Signs Temp Pulse Resp BP Pulse Ox O2 Del Method O2 Flow Rate 97.6 F 140 H 15 108/64 93 L High Flow Nasal Cannula 30 08/01/25 12:00 08/01/25 12:00 08/01/25 12:00 08/01/25 12:00 08/01/25 12:00 08/01/25 12:00 08/01/25 12:00 FiO2 70 08/01/25 12:00 Narrative Exam General: Cachectic, waning orientation, reports having pain. Neuro: A&O x3, no focal deficits HEENT: Moist mucous membranes, no nasal congestion CV: Tachycardic, regular rhythm, no murmurs Resp: decreased breath sounds, bilaterall bases . Bilateral pleurevac tubes in place, no bleeding.On high flow NC @ 25L at 70% FIo2 GI: Abdomen soft, non-tender, non-distended Extremities: No edema, 2+ pulses, no pitting edema Skin: Warm, dry, wound mid scapula on back , lidocaine patches in place on back and chest prn , will place fentanyl patch q3d Psych: appropriate responses Objective Labs 07/31/25 11:30 07/31/25 11:30 ABG Interpretation ABG results: 07/22/25 07/22/25 07/22/25 09:48 17:57 22:34 ABG pH 7.40 7.43 ABG pCO2 53 H 51 H ABG pO2 81 L 74 L ABG HCO3 33 H 34 H ABG O2 Saturation 97 96 ABG Base Excess 7 H 8 H VBG pH 7.43 VBG pCO2 51 VBG pO2 32 VBG Base Excess 8 H 07/23/25 07/24/25 07/24/25 12:54 07:45 16:12 ABG pH 7.42 7.40 7.41 ABG pCO2 54 H 57 H 57 H ABG pO2 73 L 58 L* 69 L ABG HCO3 35 H 35 H 36 H ABG O2 Saturation 96 90 L 94 ABG Base Excess 9 H 9 H 10 H VBG pH VBG pCO2 VBG pO2 VBG Base Excess 07/25/25 08:20 ABG pH 7.42 ABG pCO2 57 H ABG pO2 79 L ABG HCO3 37 H ABG O2 Saturation 96 ABG Base Excess 11 H VBG pH VBG pCO2 VBG pO2 VBG Base Excess Quality Measures Quality Measures VTE prophylaxis Assessment & Plan Assessment Current Active Medications: Generic Name Dose Route Start Last Admin Trade Name Freq PRN Reason Stop Dose Admin Alprazolam 0.25 mg 07/30/25 17:30 08/01/25 07:44 Alprazolam 0.25 Mg Tablet PO 08/04/25 17:29 0.25 mg BID PRN Administration ANXIETY Docusate Sodium 100 mg 07/23/25 11:45 08/01/25 09:28 Docusate Sod 100 Mg Capsule PO 08/22/25 11:44 100 mg QDAY JUAN JOSE Administration Protocol Fentanyl 25 mcg 07/30/25 10:00 07/30/25 12:05 Fentanyl 25 Mcg Transdermal Patch TOP 08/04/25 09:59 25 mcg Q3D JUAN JOSE Administration Protocol Hydromorphone HCl 2 mg 07/27/25 18:00 07/30/25 09:05 Hydromorphone Inj 2 Mg/Ml Vial IVP 08/01/25 17:59 2 mg On Hold: 07/30/25 12:09 Q3HR PRN Administration Comment: CALL OR CONTACT CENTRE OPERATOR ORDERED BY DR. Mercado 5-10 LANA. BLAAngel Hydromorphone HCl 0 mg 07/31/25 06:12 08/01/25 07:46 Hydromorphone 1 Mg/Ml Gluer And Wedger Syringe 30ml CALL OR CONTACT CENTRE OPERATOR 08/04/25 12:14 30 mg UD JUAN JOSE Administration Protocol Lactulose 20 gm 07/28/25 18:00 08/01/25 09:27 Lactulose Syrup 20 Gm/30 Ml Udc PO 08/27/25 17:59 20 gm DAILY JUAN JOSE Administration Protocol Lidocaine 2 patch 07/24/25 13:34 07/30/25 09:05 Lidocaine 5% 1 Patch TOP 08/23/25 13:33 2 patch UD PRN Administration PAIN Protocol Melatonin 6 mg 07/25/25 21:00 07/31/25 21:27 Melatonin 3 Mg Tablet PO 08/24/25 20:59 Not Given HS JUAN JOSE Multivitamins/Minerals 15 ml 07/24/25 09:00 08/01/25 09:27 Multivitamin 15 Ml Udc PO 08/23/25 08:59 15 ml QDAY JUAN JOSE Administration Ondansetron HCl 8 mg 07/22/25 13:44 07/28/25 23:10 Ondansetron Inj 2 Mg/Ml Inj 2 Ml IVP 08/21/25 13:43 8 mg Q6H PRN Administration NAUSEA OR VOMITING Protocol Quetiapine Fumarate 50 mg 07/25/25 09:00 08/01/25 09:28 Quetiapine Fumarate 25 Mg Tablet PO 08/24/25 08:59 50 mg QDAY JUAN JOSE Administration Sennosides 2 tab 07/22/25 13:59 07/28/25 05:50 Senna Tablet PO 08/21/25 13:58 2 tab QDAY PRN Administration CONSTIPATION Protocol Plan Mr. Garcia 49M with metastatic adenocarcinoma (mets in lung, liver and bone) on 3-4 L oxygen at home, who was transferred to [facility] [[email or web address]] for 1 month for workup of suspected small bowel cancer now on FOLFOX plus cetuximab plus encorafenib (last chemo was 3 weeks ago at [facility] [email or web address] (followed by Dr. Cody and Dr. Schwartz), normocytic anemia, and bilateral malignant pleural effusions with pleur vac tubes bilaterally (per she drains one side every other day) he has had significant weight loss (BMI 18) who presented with increased work of breathing found to have PNA on high flow nc,not tolerating weaning, and lasix qd. Pt dnr/dni managing ARDS, pna, and pain. pending goals of care discussion with family, comfort vs hospice, but continues to require significant amount of high flow. Dr. schwartz states that better control of his pain may hasten his , and so discussion with family is prudent. Acute hypoxic respiratory failure 2/2 Moderate ARDS Stage IV Metastatic Adenocarcinoma- poor prognosis bilateral malignant pleural effusions with pleurx tubes hospital acquired bibasilar pneumonia Metastatic pulmonary nodules Severe bilateral atelectasis follows with Dr. Cody and Lana. reports draining 1 lung every other day at home on Chemo at [facility] [[email or web address]] (FOLFOX plus cetuximab plus encorafenib) CXR and CT chest with bilateral effusions and pleurx tubes in appropriate positions, bibasilar pleural effusion Tx - drain lungs when symptomatic - Ceftriaxone 2 mg x1 (07/22) - Azithromycin 500mg x1 (07/22) - Vancomycin (pharmacy to dose) (07/22- 07/30) - Cefepime 2gm q8hr (07/22- day 07/29) - Lasix 40 mg IV qd - Consult Oncology, Dr Schwartz for prognosis and goals of care discussion and possible hospice - methylprednisolone 40 mg IV qd (07/25- 07/31) - Pain Meds: 07/24: d/c Methadone 25mg q8hr scheduled 07/30: d/c percocet 2 tabs q8hr scheduled 07/30: d/c Dilaudid 2mg IV q3hr prn 07/30: fentanyl patch 25 mcg 07/30: Dilaudid pump (recommended by Dr. Schwartz) lidocaine patches 5% prn - Nausea Meds: Zofran 8mg q6hr PRN - highflow NC PRN, wean as tolerated - avoid albuterol given tachycardia. -full comfort care measures starting this evening Sinus Tachycardia - less severe CTM given pt on some qt prolonging agents could be 2/2 poor lung reserves vs anemia, vs pain. EKG with sinus tachycardia Anxiety Normocytic anemia (hgb 8)- stable Anorexia Malnutrition 2/2 malignancy Hypoalbuminemia BMI 18 Coagulopathy 2/2 malignancy Chronic elevated alk phos (893) back wound Dispo: comfort care Diet: regular, mechanical dysphagia 2 Bowel Reg: senna 2 tab qd prn VTE ppx: hold SCDs GI ppx: Protonix 40 IV qd Code status: DNR Patient's plan of care discussed with Dr. Brantley. Shirin Ribera, PGY2 Attending Provider Attestation/Addendum Padmini Key DO, attest that I was physically present for the [place] portions of the service and evaluated the patient with the resident and I reviewed and discussed the case with the resident and agree with the resident's findings and plans of care as documented above Patient seen and evaluated this AM. He remains in pain, with movement, but reports feeling much more comfortable. He is able to eat breakfast. However, O2 demand has been increasing as he is now requiring 25L/min and 75% FIO2. Family decided to move forward with comfort care this afternoon. Comfort care measures initiated and will transfer pt to med/surg.
--- NOTE | 2025-08-01 14:00 | PC.SS ---
Addendum entered by MAIRA Hines 08/01/25 16:09: FEED MANAGEMENT ADVISOR met with hand cigar maker and bedside nurse, bedside nurse provided patient name and room number and reason for request. FEED MANAGEMENT ADVISOR notified Dr. Vasquez that has arrived and is speaking to family. Addendum entered by MAIRA Hines 08/01/25 14:52: FEED MANAGEMENT ADVISOR and Dr. Vasquez met with patient and patient family for goals of care meeting. Dr. Vasquez went over hospice vs comfort care options. Family would like comfort care at the hospital but would like hand cigar maker to be present before comfort care measures are started. FEED MANAGEMENT ADVISOR made contact with commercial stripper services who spoke to family over the phone, from [facility] stated that he is currently in [place] and will send a message to see if anyone can come out to the room today. FEED MANAGEMENT ADVISOR requested a call back to confirm someone will be coming out today. FEED MANAGEMENT ADVISOR and family provided patient name and room number to commercial stripper services. FEED MANAGEMENT ADVISOR requested Croatian speaking . Original Note: Rounding: FEED MANAGEMENT ADVISOR and Dr. Vasquez will meet with patient and patient family after rounding.
--- NOTE | 2025-08-01 17:06 | PC.NURSE ---
pt.comfort care,changed O2 from [place] to oxymask @ 15L.pt. on Dilaudid drip.
[2025-08-02] VITALS: TEMP -17.7; TEMP 0
[2025-08-02] MEDS: HYDROmorphone 1 MG/ML PCA SYRINGE 30ML PCA ×2 (00:42→07:21)
[2025-08-02 00:47] VITALS: RESP 10
[2025-08-02 04:00] VITALS: RESP 10; TEMP -17.7; TEMP 0
--- NOTE | 2025-08-02 06:49 | PC.NURSE ---
okay to increase the BUNG SEWER dilaudid from 4mls/hr to 5mls/hr.
[2025-08-02 07:21] VITALS: RESP 10
--- NOTE | 2025-08-02 08:13 | ESPR_ITS ---
<Statement entered by Blanca Presley MD - 08/03/25 14:41> I discussed with and supervised the data analysis intern physician who took care of this patient. I personally saw and examined the patient and discussed the assessment and plan with the entire medicine team, including my attending Dr. Brantley, I agree with most of the assessment and plan as documented below Blanca Presley M.D. PGY-3 <Statement entered by Shirin Ribera MD - 08/02/25 18:27> Note reviewed, I agree with most of its contents and agree with the patient's care as documented by Dr. Lester. Patient is on comfort care with 5 mg Dilaudid IV every hour. Family is at bedside, patient on oxy mask. The patient's management plan was discussed with my attending physician Dr. Brantley. Shirin Ribera, PGY-2 Documentation for date of: 08/02/25 Subjective Subjective Interval history: 08/02/2025: Patient seen and examined at bedside. Family present at bedside. Pt has agonal breath sounds with oxymask in place. ROAD CLEANER dilaudid at 5, will increase as indicated to make pt more comfortable. continues on comfort care. Exam Vital Signs Temp Pulse Resp BP Pulse Ox O2 Del Method O2 Flow Rate 0 F L 145 H 10 L 101/67 87 L High Flow Nasal Cannula 30 08/02/25 04:00 08/01/25 16:00 08/02/25 04:00 08/01/25 16:00 08/01/25 16:00 08/01/25 16:00 08/01/25 16:00 FiO2 75 08/01/25 16:00 Narrative Exam GENERAL: no acute distress, sleeping, comfortably laying in bed HEENT: Head AT/ NC. CARDIOVASCULAR: RRR. RESPIRATORY: decreased breath sounds bilaterally, pleurx tubes in place. oxy mask on. agonal breaths Objective Labs 07/31/25 11:30 07/31/25 11:30 ABG Interpretation ABG results: 07/22/25 07/22/25 07/22/25 09:48 17:57 22:34 ABG pH 7.40 7.43 ABG pCO2 53 H 51 H ABG pO2 81 L 74 L ABG HCO3 33 H 34 H ABG O2 Saturation 97 96 ABG Base Excess 7 H 8 H VBG pH 7.43 VBG pCO2 51 VBG pO2 32 VBG Base Excess 8 H 07/23/25 07/24/25 07/24/25 12:54 07:45 16:12 ABG pH 7.42 7.40 7.41 ABG pCO2 54 H 57 H 57 H ABG pO2 73 L 58 L* 69 L ABG HCO3 35 H 35 H 36 H ABG O2 Saturation 96 90 L 94 ABG Base Excess 9 H 9 H 10 H VBG pH VBG pCO2 VBG pO2 VBG Base Excess 07/25/25 08:20 ABG pH 7.42 ABG pCO2 57 H ABG pO2 79 L ABG HCO3 37 H ABG O2 Saturation 96 ABG Base Excess 11 H VBG pH VBG pCO2 VBG pO2 VBG Base Excess Quality Measures Quality Measures VTE prophylaxis Assessment & Plan Assessment Current Active Medications: Generic Name Dose Route Start Last Admin Trade Name Freq PRN Reason Stop Dose Admin Alprazolam 0.25 mg 08/01/25 16:32 08/01/25 16:36 Alprazolam 0.25 Mg Tablet PO 08/04/25 17:29 0.25 mg Q6HR PRN Administration ANXIETY Docusate Sodium 100 mg 07/23/25 11:45 08/01/25 09:28 Docusate Sod 100 Mg Capsule PO 08/22/25 11:44 100 mg QDAY JUAN JOSE Administration Protocol Fentanyl 25 mcg 07/30/25 10:00 07/30/25 12:05 Fentanyl 25 Mcg Transdermal Patch TOP 08/04/25 09:59 25 mcg Q3D JUAN JOSE Administration Protocol Hydromorphone HCl 0 mg 08/02/25 06:45 08/02/25 07:21 Hydromorphone 1 Mg/Ml [employer] Electric[employer] Syringe 30ml ROAD CLE[employer]ER 08/07/25 06:44 30 mg UD JUAN JOSE Administration Protocol Lactulose 20 gm 07/28/25 18:00 08/01/25 09:27 Lactulose Syrup 20 Gm/30 Ml Udc PO 08/27/25 17:59 20 gm DAILY JUAN JOSE Administration Protocol Lidocaine 2 patch 07/24/25 13:34 07/30/25 09:05 Lidocaine 5% 1 Patch TOP 08/23/25 13:33 2 patch UD PRN Administration PAIN Protocol Melatonin 6 mg 07/25/25 21:00 08/01/25 20:52 Melatonin 3 Mg Tablet PO 08/24/25 20:59 Not Given HS JUAN JOSE Ondansetron HCl 8 mg 07/22/25 13:44 07/28/25 23:10 Ondansetron Inj 2 Mg/Ml Inj 2 Ml IVP 08/21/25 13:43 8 mg Q6H PRN Administration NAUSEA OR VOMITING Protocol Quetiapine Fumarate 50 mg 07/25/25 09:00 08/01/25 09:28 Quetiapine Fumarate 25 Mg Tablet PO 08/24/25 08:59 50 mg QDAY JUAN JOSE Administration Sennosides 2 tab 07/22/25 13:59 07/28/25 05:50 Senna Tablet PO 08/21/25 13:58 2 tab QDAY PRN Administration CONSTIPATION Protocol Plan Mr. Garcia 49M with metastatic adenocarcinoma (mets in lung, liver and bone) on 3-4 L oxygen at home, who was transferred to [facility] for 1 month for workup of suspected small bowel cancer now on FOLFOX plus cetuximab plus encorafenib (last chemo was 3 weeks ago at [facility]) (followed by Dr. Cody and Dr. Schwartz), normocytic anemia, and bilateral malignant pleural effusions with pleur vac tubes bilaterally (per she drains one side every other day) he has had significant weight loss (BMI 18) who presented with increased work of breathing found to have PNA, completed treatment, and continued to require significant oxygen supplementation, pt now on comfort care. Acute hypoxic respiratory failure 2/2 Moderate ARDS Stage IV Metastatic Adenocarcinoma- poor prognosis bilateral malignant pleural effusions with pleurx tubes hospital acquired bibasilar pneumonia Metastatic pulmonary nodules Severe bilateral atelectasis - Pain Meds: 07/30: fentanyl patch 25 mcg 07/30: Dilaudid pump (recommended by Dr. Schwartz) Sinus Tachycardia - less severe Anxiety Normocytic anemia (hgb 8)- stable Anorexia Malnutrition 2/2 malignancy Hypoalbuminemia BMI 18 Coagulopathy 2/2 malignancy Chronic elevated alk phos (893) back wound -full comfort care measures starting this evening Dispo: comfort care Code status: DNR Plan discussed with Dr. Ribera, Dr Presley, and Dr. Karon Lester MD PGY1 Attending Provider Attestation/Addendum Shahid, Padmini Brantley DO, attest that I was physically present for the mclaughlin portions of the service and evaluated the patient with the resident and I reviewed and discussed the case with the resident and agree with the resident's findings and plans of care as documented above Continue with comfort measures.
--- NOTE | 2025-08-02 10:10 | PC.SS ---
SS follow up note; Patient is currently still on comfort measures.
--- NOTE | 2025-08-02 10:19 | PD.ONCPROG ---
Documentation for date of: 08/02/25 Subjective Subjective Interval history: Patient with hydromorphone at 5 mg/h appears to be comfortable at this point. Patient is DNR and Exam Vital Signs Temp Pulse Resp BP Pulse Ox O2 Del Method O2 Flow Rate 0 F L 145 H 10 L 101/67 87 L High Flow Nasal Cannula 30 08/02/25 04:00 08/01/25 16:00 08/02/25 04:00 08/01/25 16:00 08/01/25 16:00 08/01/25 16:00 08/01/25 16:00 FiO2 75 08/01/25 16:00 Narrative Exam Appeared comfortable receiving hydromorphone continuously at 5 mg/h. Objective Labs 07/31/25 11:30 07/31/25 11:30 ABG Interpretation ABG results: 07/22/25 07/22/25 07/22/25 09:48 17:57 22:34 ABG pH 7.40 7.43 ABG pCO2 53 H 51 H ABG pO2 81 L 74 L ABG HCO3 33 H 34 H ABG O2 Saturation 97 96 ABG Base Excess 7 H 8 H VBG pH 7.43 VBG pCO2 51 VBG pO2 32 VBG Base Excess 8 H 07/23/25 07/24/25 07/24/25 12:54 07:45 16:12 ABG pH 7.42 7.40 7.41 ABG pCO2 54 H 57 H 57 H ABG pO2 73 L 58 L* 69 L ABG HCO3 35 H 35 H 36 H ABG O2 Saturation 96 90 L 94 ABG Base Excess 9 H 9 H 10 H VBG pH VBG pCO2 VBG pO2 VBG Base Excess 07/25/25 08:20 ABG pH 7.42 ABG pCO2 57 H ABG pO2 79 L ABG HCO3 37 H ABG O2 Saturation 96 ABG Base Excess 11 H VBG pH VBG pCO2 VBG pO2 VBG Base Excess Assessment & Plan A&P Narrative 1. Metastatic adenocarcinoma with significant lung and bone involvement stage IV. Noted to be writhing during the weekend. 2. Patient and family agree to comfort measures now receiving continuous hydromorphone at 5 mg/h. 3. Appears comfortable at this time with likely impending and family members around the bedside. Time Spent With Patient Time: Total time spent is greater than 50% in coordination of care (as documented) at patient's floor/unit and/or counseling patient:
[2025-08-02 10:30] VITALS: RESP 11
--- NOTE | 2025-08-02 10:43 | PD.DPN ---
Documentation for date of: 08/02/25 Pronouncement Note Date and Time of Date of : 08/02/25 Time of : 10:35 PCOD Preliminary cause of : Cardiopulmonary arrest Contributing Factors (1) Respiratory failure: (2) Carcinoma metastatic to lung: (3) Suspected malignant neoplasm: Summary Additional details: Physician was called to bedside at 10:24, went to bedside to examine patient at bedside. Family was kindly asked to exit the room for the exam. Exam was conducted, and time of was pronouced at 10:35 AM. family at bedside was notified that patient had and condolences were given. Family returned to the patient room. Plan discussed with Dr. Karon Lester MD PGY1 Additional Data Confirmation of : no pulse, no respirations, no heart sounds and pupils fixed and dilated Family: at bedside Attending/PCP notified?: Yes Attending physician: Padmini Brantley, DO Was code activated?: No
--- NOTE | 2025-08-02 10:44 | DES_ITS ---
<Statement entered by Padmini Brantley DO - 08/02/25 16:27> I, Padmini Brantley DO, attest that I was physically present for the mclaughlin portions of the service and evaluated the patient with the resident and I reviewed and discussed the case with the resident and agree with the resident's findings and plans of care as documented above Documentation for date of: 08/02/25 Summary Date and Time Date of admission: 07/22/25 10:35 Summary Hospital Course: Hospital Course Mr. Garcia was a 49M with metastatic adenocarcinoma (mets in lung, liver and bone) on 3-4 L oxygen at home, who was transferred to [facility] for 1 month for workup of suspected small bowel cancer on FOLFOX plus cetuximab plus encorafenib (last chemo was 3 weeks ago at [facility]) (followed by Dr. Cody and Dr. Schwartz), normocytic anemia, and bilateral malignant pleural effusions with pleur vac tubes bilaterally (per she drains one side every other day) he had had sig nificant weight loss (BMI 18) who presented with increased work of breathing found to have PNA, completed treatment with IV antibiotics and steroids for suspected ARDS. his condition worsened and based on pt decision and family discussions, pt was changed from full code to dnr and dni and continued on high flow oxygen. Patient's oxygen demand continued to increase. Due to worsening of condition, patient and family decided to move forward with comfort care. Oncology was consulted to assist with his pain management. He was started on dilaudid machine cleaner pump and fentynl patch. He was transitioned to comfort care and dilaudid pump was uptitrated to make him more comfortable. Physician was called to bedside to assess patient at 10:24. Family was asked to leave the room prior to doing the exam. There was no radial pulse on palpation, and no heart sounds on auscultation, pupils were fixed and unresponsive to light, he had no corneal reflexes. Patient at 10:35 AM Diagnoses while in the hospital Acute hypoxic respiratory failure 2/2 Moderate ARDS Stage IV Metastatic Adenocarcinoma- poor prognosis bilateral malignant pleural effusions with pleurx tubes hospital acquired bibasilar pneumonia Metastatic pulmonary nodules Severe bilateral atelectasis Sinus Tachycardia - less severe Anxiety Normocytic anemia (hgb 8)- stable Anorexia Malnutrition 2/2 malignancy Hypoalbuminemia BMI 18 Coagulopathy 2/2 malignancy Chronic elevated alk phos (893) back wound Plan discussed with Dr. Karon Lester MD PGY1 Additional Data Confirmation of as documented by pronouncing clinician: no pulse, no respirations, no heart sounds and pupils fixed and dilated Family: at bedside Additional persons at bedside: regional office coordinator (regional office coordinator came yesterday to do final rights ) Attending physician: Padmini Brantley, DO Was code activated?: No Visit Providers Provider Primary care physician: Physician No Primary/Family Consults: 07/22/25 13:26 Referral Registered Dietitian Routine Comment: metastatic cancer, bmi 18, significant wt loss 07/22/25 14:07 Consult to Oncology Routine Comment: Consulting Provider: Bari Schwartz 07/31/25 15:10 Referral Hospice Routine Comment: Discharge Plan Plan Patient Disposition: Prescriptions/Referrals Referrals: No Primary/Family,Physician [Primary Care Provider] Patient/Caregiver Discharge Instructions Print Language: Macanese
--- NOTE | 2025-08-02 19:46 | PC.NURSE ---
contact [facility] @[phone] talked to Tori Dennis @[phone] [address] Called for follow up.
--- NOTE | 2025-08-02 19:47 | PC.NURSE ---
contact [facility] services @[phone] and talk to Joanna, gave an estimated time of 1hr before arrival.
== END 2025-08-02 10:35 | disposition expired | DRG 133 ==
LOC: SERX 10:38 → SERHOLD 11:08 → S2NX 16:15 → S3NX 08-01 20:31
PROVIDERS: Student in an Organized Health Care Education/Training Program; Admitting Provider Internal Medicine; Emergency Provider Family Medicine; Visit Provider Internal Medicine
DX: J80 Acute respiratory distress syndrome (principal); J18.9 Pneumonia, unspecified organism; Z68.1 Body mass index [BMI] 19.9 or less, adult; C17.9 Malignant neoplasm of small intestine, unspecified; C78.00 Secondary malignant neoplasm of unspecified lung; C78.7 Secondary malignant neoplasm of liver and intrahepatic bile duct; C79.51 Secondary malignant neoplasm of bone; J91.0 Malignant pleural effusion; D63.0 Anemia in neoplastic disease; E46 Unspecified protein-calorie malnutrition; E88.09 Other disorders of plasma-protein metabolism, not elsewhere classified; D68.9 Coagulation defect, unspecified; R74.8 Abnormal levels of other serum enzymes; F41.9 Anxiety disorder, unspecified; I50.9 Heart failure, unspecified; J98.11 Atelectasis; Z51.5 Encounter for palliative care; Z66 Do not resuscitate; Z79.52 Long term (current) use of systemic steroids; R13.10 Dysphagia, unspecified; I46.8 Cardiac arrest due to other underlying condition; Z88.0 Allergy status to penicillin
CPT/HCPCS: 36415; 36600; 71045; 71250; 80053; 80202; 81001; 82803; 83605; 83735; 84100; 84484; 85014; 85018; 85025; 85610; 86331; 86635; 86850; 86900; 86901; 86923; 87040; 87081; 87811; 93005; 94640; 94660; 94762; 96361; 96365; 96375; 99285; A4649; J0456; J0692; J0696; J1100; J1171; J1938; J2405; J2919; J3010; J3370; J3373; J3475; J3490; J7030; J7050; J7120; A9270